=== PATIENT | female | born 1945 | race Caucasian/White ===

== ENCOUNTER 2019-08-30 14:14 | Inpatient (IN) ==
[2019-08-30 15:34] LABS: Basophils # (auto) 0.06 K/uL (0-0.2); Basophils % (auto) 0.6 %; Eosinophils # (auto) 0.23 K/uL (0-0.5); Eosinophils % (auto) 2.1 %; Hematocrit (blood only) 32.9 % (37-47); Hemoglobin 10.1 g/dL (12.0-16.0); Immature Granulocytes # (auto) 0.06 K/uL (0.00-0.02); Immature Granulocytes % (auto) 0.6 %; Lymphocytes # (auto) 3.04 K/uL (1.2-3.4); Lymphocytes % (auto) 28.1 %; Mean Corpuscular Hemoglobin 27.4 pg (25-34); Mean Corpuscular Hgb Conc 30.7 g/dL (32-36); Mean Corpuscular Volume 89.2 fL (80-100); Mean Platelet Volume 9.5 fL (7.4-10.4); Monocytes % (auto) 11.1 %; Neutrophils # (auto) 6.24 K/uL (1.4-6.5); Neutrophils % (auto) 57.5 %; Platelet Count 603 K/uL (130-400); RDW Coefficient of Variation 15.4 % (11.5-14.5); RDW Standard Deviation 49.7 fL (36.4-46.3); Red Blood Count 3.69 M/uL (4.2-5.4); White Blood Count 10.83 K/uL (4.8-10.8)
[2019-08-30 16:03] LABS: Alanine Aminotransferase 34 U/L (12-78); Albumin Globulin Ratio 0.6 (0.9-2); Alkaline Phosphatase 131 U/L (45-117); Aspartate Aminotransferase 48 U/L (15-37); BUN Creatinine Ratio 16.4 (10-20); Bilirubin,Total 0.4 mg/dl (0.2-1); Blood Urea Nitrogen 42 mg/dl (7-18); Calcium 9.2 mg/dl (8.5-10.1); Carbon Dioxide 27 mmol/L (21-32); Chloride 115 mmol/L (98-107); Est GFR (African American) 20.2; Est GFR (Non-African American) 17.4; Glucose 105 mg/dl (70-99); Lipase 477 U/L (73-393); Potassium 4.4 mmol/L (3.5-5.1); Sodium 146 mmol/L (136-145)
--- NOTE | 2019-08-30 16:12 | CT Scan Report ---
CT OF THE ABDOMEN AND PELVIS WITHOUT CONTRAST CLINICAL HISTORY: vomiting, 1 mo s/p partial colectomy COMPARISON STUDY: No previous studies for comparison. TECHNIQUE: Axial images of the abdomen and pelvis were obtained without IV contrast. Images were revi ewed in the axial, sagittal, and coronal planes. Automated exposure control was utilized for the marisabel dy. A dose lowering technique was utilized adhering to the principles of ALARA. No intravenous contr ast was administered due to IV dye allergy. FINDINGS: Lung bases are unremarkable. Gallbladder is slightly distended. Locules gallbladder are not ed however there is also pneumobilia which is likely related. Note is made of a 2.4 x 1.6 cm subcapsu lar segment 8 hypodensity with mild capsular retraction. Adjacent calcifications noted. In p art, this could reflect ductal dilatation. Evaluation is suboptimal on this unenhanced examination. U nenhanced images of the spleen, adrenal glands, right kidney and pancreas are normal. There is marked left renal atrophy. No abscess is present. Mild left abdominal infiltration is noted within the omen ede. The appendix is normal. There is no lymphadenopathy or ascites. Mild sigmoid diverticulosis is n oted without evidence for acute diverticulitis. There are no suspicious osseous lesions. IMPRESSION: 1. No abscess. No bowel obstruction. Mild left abdominal infiltration which is likely postsurgical. 2. Pneumobilia. A few locules of gas within the gallbladder which is likely related. Minimal gallblad francisco j distention without pericholecystic infiltration. 3. 2.4 x 1.6 cm subcapsular segment 8 hypodensity. In part, this could reflect ductal dilatation. Thi s is suboptimally assessed on this unenhanced exam and comparison with prior imaging studies, if avai lable, is recommended. If no priors, a nonemergent MRI of the liver is recommended. 4. Marked left renal atrophy. No hydronephrosis. Electronically signed by: Mekhi Alarcon M.D. 08/30/2019 4:09 PM
[2019-08-30] MEDS ORDERED: SODIUM CHLORIDE 0.9% 1000ML 1,000 ML IV STA (16:36)
[2019-08-30] MEDS ORDERED: ONDANSETRON INJ 2 MG/ML 2 ML VIAL IV STA (16:36)
[2019-08-30 17:20] LABS: Appearance Urine Clear (Clear); Bilirubin Urine Negative (Negative); Blood Urine Negative (Negative); Color Urine Yellow; Glucose Urine UA Negative (Negative); Ketones Urine Negative (Negative); Leukocyte Esterase Urine 2+ (Negative); Nitrite Urine Negative (Negative); Protein Urine Trace (Negative); Specific Gravity Urine >= 1.030 (1.000-1.030); Urobilinogen Urine Negative (Negative); pH Urine 5.5 (4.5-7.5)
[2019-08-30 17:40] LABS: Epithelial Cell Urine >30 /lpf (0-5); RBC Urine 0-4 /hpf (0-4); WBC Urine >30 /hpf (0-5)
[2019-08-30 17:41] LABS: Bacteria Urine Negative (Negative)
--- NOTE | 2019-08-30 17:43 | Ultrasound Report ---
US gallbladder CLINICAL HISTORY: vomiting, distended GB on CT COMPARISON STUDY: CT of the abdomen and pelvis August 30, 2019 at 3:50 PM. FINDINGS: Pneumobilia is noted, as shown on CT. Note is made of a 1.5 cm cystic focus with peripheral calcifications, likely correspond to the finding on CT performed earlier today. Note is made of a 1. 9 cm echogenic nonshadowing structure within the gallbladder which may reflect a stone or sludge ball . There is no gallbladder wall thickening. No sonographic Sierra sign was elicited. No pericholecysti c fluid is noted. There is no biliary ductal dilatation. No right hydronephrosis is present. Pancreat ic body is normal. Head and tail are partially obscured. IMPRESSION: 1. Stone versus sludge ball within the gallbladder. Mild gallbladder distention. No sonographic Jose Alejandro y sign. No evidence for acute cholecystitis by sonography. 2. Pneumobilia. No biliary dilatation. Electronically signed by: Mekhi Alarcon M.D. 08/30/2019 5:42 PM
--- NOTE | 2019-08-30 17:49 | Emergency Department Note ---
Entered by Edmar Ahmadi acting as a scribe for Addy Woods MD ED Provider Note CHIEF COMPLAINT: Nausea and vomiting HISTORY OF PRESENT ILLNESS: The patient is a 73 year old female who presents to the Emergency Room with complaints of constant nausea and vomiting that has been ongoing for the past 2 weeks. The patient endorses some diarrhea (3x per day) as well but denies any overt abdominal pain. The patient states that due to her symptoms she has barely been eating. She adds that she also has been very lightheaded and weak lately. The patient mentioned that she had a partial colon resection done at [facility] on 08/05. She had the procedure done to treat colon cancer. The patient adds that since the onset of her symptoms, the patient has been back to [facility] 8 days ago and was admitted. Pt denies LOC, headache, fevers, chills, diaphoresis, visual changes, neck pain, chest pain, breathing difficulties, back pain, melena, hematochezia, urinary symptoms, numbness, lymphadenopathy, rash, or other complaints. REVIEW OF SYSTEMS: See HPI for pertinent positives and negatives. A total of ten systems were reviewed and were otherwise negative. PMHx/PSHx: CKD stage 4, HTN, Heart murmur, Lupus SOCIAL HISTORY: Patient lives at home. Single PHYSICAL EXAM: GENERAL: Awake, alert, uncomfortable-appearing, in no distress HENT: Normocephalic, atraumatic. Oropharynx unremarkable. Dry mucous membranes. EYES: Normal conjunctiva. Sclera non-icteric. NECK: Inspection normal. Non-tender. Supple. No nuchal rigidity. FROM. No masses. RESPIRATORY: Clear to auscultation. No wheezes. No rales. Normal respiratory effort. CARDIAC: Normal rate. Normal rhythm. No murmurs. No rubs. Extremities warm and well perfused. Pulses equal. No JVD. GI: Soft, non-distended. Tenderness to the right lower quadrant. No rebound or guarding. No masses. Mid abdominal incision that is C/D/I. RECTAL: Deferred. MUSCULOSKELETAL: Atraumatic. Chest examination reveals no tenderness. The back is symmetrical on inspection without obvious abnormality. There is no CVA tenderness to palpation. No joint edema. LOWER EXTREMITIES: Calves are equal size bilaterally and non-tender. No edema. No discoloration. NEURO: Normal sensorium. No sensory or motor deficits noted. SKIN: No rash or jaundice noted. EMERGENCY DEPARTMENT COURSE: 1452: Past medical records reviewed. The patient was evaluated in room B08, and a complete history and physical examination were performed. 1640: I reevaluated the patient and updated her on results. We also discussed the treatment plan and she is agreeable. 1653: I discussed the patient's case with Tika JOLLEY who is working under Dr. Kevin Burnett. They agreed to accept the patient for further evaluation. MEDICAL DECISION MAKING: B8 Prior records/ancillary studies reviewed. Patient's baseline creatinine is 1.9-2.1. Labs in discharge summary reviewed from the [facility] Triage Nursing notes reviewed and agree them. The patient's history was concerning for abdominal pain. Differential diagnosis: Etiologies such as appendicitis, diverticulitis, PUD, biliary pathology, UTI, pancreatitis, obstruction, mesenteric ischemia, aortic pathology, infections, inflammatory bowel disease, renal colic, as well as others were entertained. Physical examination findings: As above. ER treatment provided: Normal saline hydration IV Zofran On reassessment the patient felt better. Diagnostics interpreted by me: ECG: Acute ischemia. The labs revealed mild dehydration and an elevated creatinine above baseline on chemistry panel. Slight leukocytosis on CBC. Imaging studies: CT scan of the abdomen pelvis was performed. There is gallbladder distention without overt signs of cholecystitis. There is pneumobilia present as well. No sign of perforation or obstruction with the bowel. No intra-abdominal infection noted. Ultrasound imaging pending. The patient is generally having a tough time recovering from her surgery. She has been dealing with vomiting and diarrhea. She was unable to provide a stool sample in the ER. She is generally weak. Her creatinine bumped from 2 to almost 2.6. I discussed further management in the hospital and the patient and her friend were very much in agreement. Consultation: A consultation was placed with the Belinda burnett. The case was discussed and diagnostics were reviewed. The patient was evaluated in the ER for further treatment. IMPRESSION: Vomiting RLQ abdominal pain Dehydration Generalized weakness PLAN: Being evaluated by the hospitalist The scribe's documentation has been prepared under my direction and personally reviewed by me in its entirety. I confirm that the note above accurately reflects all work, treatment, procedures, and medical decision making performed by me. Impression & Plan Vomiting, Abdominal pain, RLQ, Dehydration, Generalized weakness Past Med/Surg History Medical History Cancer MULTIPLE SKIN CANCER REMOVALS (RADIATION FOR SKIN CANCER/UPPER LIP) Carolis disease Chronic kidney disease STAGE 3 "ONLY HAS 1 FUNCTIONING KIDNEY" Endometriosis GERD (gastroesophageal reflux disease) Hyperlipidemia Hypertension Lupus Migraine Osteoarthritis Stroke 2 YEARS AGO (REASON FOR TAKING PLAVIX/NO CURRENT PROBLEMS) Surgical History History of colonoscopy History of esophagogastroduodenoscopy (EGD) History of tonsillectomy History of tooth extraction History of total abdominal hysterectomy and bilateral salpingo-oophorectomy Family History Father Family hx colonic polyps Social History Preferred Language: Albanian Communication Ability: Effective Rate Engineer Required: No Beliefs That Will Affect Care: None Current Living Situation: Alone Feels Safe at Home: Yes Smoking Status: Never smoker Second Hand Exposure: No ; Hx Alcohol Use: No Hx Substance Use: No Results & Data Vital Signs Vital Signs - 24 hr 08/30/19 14:18 08/30/19 15:20 08/30/19 17:02 Temperature 36.6 C Temperature Source Oral Pulse Rate 62 Pulse Rate [Finger] 68 Respiratory Rate 16 20 Respiratory Effort / Characteristics Non-Labored Spontaneous Respiratory Depth Normal Blood Pressure 168/75 H Blood Pressure [Left Arm] 188/72 H Blood Pressure Mean 106 Blood Pressure Mean [Left Arm] 110 Blood Pressure Position Sitting Blood Pressure Position [Left Arm] Pulse Oximetry 97 97 99 Oxygen Delivery Method Room Air Room Air Room Air Sepsis Recent Fever Within 48 Hours No Sepsis New/Unexplained Change in Mental Status No Sepsis Action Taken by Nursing No Action Required 08/30/19 17:44 Temperature Temperature Source Pulse Rate Pulse Rate [Finger] 65 Respiratory Rate 18 Respiratory Effort / Characteristics Non-Labored Spontaneous Respiratory Depth Blood Pressure Blood Pressure [Left Arm] 187/66 H Blood Pressure Mean Blood Pressure Mean [Left Arm] 106 Blood Pressure Position Blood Pressure Position [Left Arm] Lying Pulse Oximetry 95 Oxygen Delivery Method Room Air Sepsis Recent Fever Within 48 Hours Sepsis New/Unexplained Change in Mental Status Sepsis Action Taken by [facility] Medications Current Medication List: was personally reviewed by me Laboratory Data Attestation: I reviewed the patient's lab results. Result diagrams: 08/30/19 14:38 08/30/19 14:38 Lab Results 08/30/19 08/30/19 08/30/19 Range/Units 14:38 14:38 17:00 WBC 10.83 H (4.8-10.8) K/uL RBC 3.69 L (4.2-5.4) M/uL Hgb 10.1 L (12.0-16.0) g/dL Hct 32.9 L (37-47) % MCV 89.2 (80-100) fL MCH 27.4 (25-34) pg MCHC 30.7 L (32-36) g/dL RDW Std Deviation 49.7 H (36.4-46.3) fL RDW Coeff of Aurelia 15.4 H (11.5-14.5) % Plt Count 603 H (130-400) K/uL MPV 9.5 (7.4-10.4) fL Immature Gran % (Auto) 0.6 % Neut % (Auto) 57.5 % Lymph % (Auto) 28.1 % [place] % (Auto) 11.1 % Eos % (Auto) 2.1 % Baso % (Auto) 0.6 % Immature Gran # (Auto) 0.06 H (0.00-0.02) K/uL Neut # (Auto) 6.24 (1.4-6.5) K/uL Lymph # (Auto) 3.04 (1.2-3.4) K/uL [place] # (Auto) 1.20 H (0.11-0.59) K/uL Eos # (Auto) 0.23 (0-0.5) K/uL Baso # (Auto) 0.06 (0-0.2) K/uL Sodium 146 H (136-145) mmol/L Potassium 4.4 (3.5-5.1) mmol/L Chloride 115 H (98-107) mmol/L Carbon Dioxide 27 (21-32) mmol/L Anion Gap 4.0 (3-11) BUN 42 H (7-18) mg/dl Creatinine 2.59 H (0.6-1.2) mg/dl Est Cr Clr Drug Dosing Not Reportable Est GFR ( Amer) 20.2 Est GFR (Non-Af Amer) 17.4 BUN/Creatinine Ratio 16.4 (10-20) Glucose 105 H (70-99) mg/dl Calcium 9.2 (8.5-10.1) mg/dl Total Bilirubin 0.4 (0.2-1) mg/dl AST 48 H (15-37) U/L ALT 34 (12-78) U/L Alkaline Phosphatase 131 H (45-117) U/L Total Protein 8.0 (6.4-8.2) gm/dl Albumin 3.0 L (3.4-5.0) gm/dl Globulin 5.0 H (2.5-4.0) gm/dl Albumin/Globulin Ratio 0.6 L (0.9-2) Lipase 477 H (73-393) U/L Specimen Hemolysis Urine Color Yellow Urine Appearance Clear (Clear) Urine pH 5.5 (4.5-7.5) Ur Specific [place] >= 1.030 (1.000-1.030) Urine Protein Trace H (Negative) Urine Glucose (UA) Negative (Negative) Urine Ketones Negative (Negative) Urine Blood Negative (Negative) Urine Nitrite Negative (Negative) Urine Bilirubin Negative (Negative) Urine Urobilinogen Negative (Negative) Ur Leukocyte Esterase 2+ H (Negative) Urine RBC 0-4 (0-4) /hpf Urine WBC >30 H (0-5) /hpf Ur Epithelial Cells >30 H (0-5) /lpf Urine Bacteria Negative (Negative) Hyaline Casts 10-30 H (0-5) /lpf Urine Yeast Budding w/ Hyphae A (None Prsent) Administered Medications Sodium Chloride (Nss 1000ml) 1,000 mls @ 125 mls/hr IV .Q8H STA Stop: 08/31/19 00:35 Last Admin: 08/30/19 17:01 Dose: 125 mls/hr Documented by: [id number] Discontinued Medications Ondansetron HCl (Zofran) 4 mg IV NOW STA Stop: 08/30/19 16:37 Last Admin: 08/30/19 17:01 Dose: 4 mg Documented by: [id number] Imaging Data Radiologist's Impression: Radiology results as stated below per my review and the radiologist's interpretation: CT OF THE ABDOMEN AND PELVIS WITHOUT CONTRAST CLINICAL HISTORY: vomiting, 1 mo s/p partial colectomy COMPARISON STUDY: No previous studies for comparison. TECHNIQUE: Axial images of the abdomen and pelvis were obtained without IV contrast. Images were reviewed in the axial, sagittal, and coronal planes. Automated exposure control was utilized for the study. A dose lowering tech nique was utilized adhering to the principles of ALARA. No intravenous contrast was administered due to IV dye allergy. FINDINGS: Lung bases are unremarkable. Gallbladder is slightly distended. Locul es gallbladder are noted however there is also pneumobilia which is likely related. Note is made of a 2.4 x 1.6 cm subcapsular segment 8 hypodensity with mild capsular retraction. Adjacent calcifications noted. In part, this could reflect ductal dilatation. Evaluation is suboptimal on this unenhanced examination. Unenhanced images of the spleen, adrenal glands, right kidney and pancreas are normal. There is marked left renal atrophy. No abscess is present. Mild left abdominal infiltration is noted within the omentum. The appendix is normal. There is no lymphadenopathy or ascites. Mild sigmoid diverticulosis is noted without evidence for acute diverticulitis. There are no suspicious osseous lesions. IMPRESSION: 1. No abscess. No bowel obstruction. Mild left abdominal infiltration which is likely postsurgical. 2. Pneumobilia. A few locules of gas within the gallbladder which is likely related. Minimal gallbladder distention without pericholecystic infiltration. 3. 2.4 x 1.6 cm subcapsular segment 8 hypodensity. In part, this could reflect ductal dilatation. This is suboptimally assessed on this unenhanced exam and comparison with prior imaging studies, if available, is recommended. If no priors, a nonemergent MRI of the liver is recommended. 4. Marked left renal atrophy. No hydronephrosis. Electronically signed by: Mekhi Alarcon M.D. 08/30/2019 4:09 PM ECG Data Attestation: I personally reviewed and interpreted this ECG as follows: Indication: + vomiting Rate (beats per minute): 62 Rhythm: normal sinus ECG Intervals/blocks: + Normal QRS ECG [place]: + Normal ECG ST segments: no ST depression and no ST elevation ECG Findings: + LVH Blood Pressure Blood Pressure Findings: Elevated blood pressure Blood Pressure Disposition: further management by hospitalist Discharge Plan Visit Data Chief Complaint: Vomiting Stated Complaint: CANT EAT - VOMITING - HIGH BP - TOO WEAK TO STAND ED Provider: Addy Woods Discharge Problem: Vomiting, Abdominal pain, RLQ, Dehydration, Generalized weakness Patient Disposition: Being Evaluated by Hospitalist Forms Stand Alone Forms: [facility] Prescriptions Prescriptions: No Action hydralazine 25 mg Tablet 50 mg PO TID RF: 0 amlodipine 10 mg Tablet 10 mg PO DAILY RF: 0 metoprolol tartrate [Lopressor] 100 mg tablet 100 mg PO BID RF: 0 tramadol 50 mg Tablet 50 mg PO Q6H PRN (Reason: Pain) RF: 0 alprazolam 0.5 mg tablet 0.25 mg PO BID PRN (Reason: Anxiety) RF: 0 alprazolam 0.5 mg Tablet 0.25 mg PO HS PRN (Reason: Anxiety) RF: 0 sertraline 50 mg Tablet 50 mg PO DAILY RF: 0 cyanocobalamin (vitamin B-12) 1,000 mcg Tablet 1,000 mcg PO QAM RF: 0 clopidogrel 75 mg Tablet 75 mg PO QAM RF: 0 aspirin 81 mg Tablet,Delayed Release (Dr/Ec) 81 mg PO HS RF: 0 amitriptyline 50 mg Tablet 25 mg PO HS RF: 0 metoprolol tartrate 50 mg Tablet 50 mg PO BID RF: 0 ranitidine HCl 150 mg Capsule 150 mg PO HS RF: 0 losartan 100 mg Tablet 100 mg PO QAM RF: 0 Referrals Referrals: Tai Beasley [Primary Care Provider] - Discharge Problem: Vomiting Qualifiers: Vomiting type: unspecified Vomiting Intractability: non-intractable Nausea presence: with nausea Qualified Code(s): R11.2 - Nausea with vomiting, unspecified The scribe's documentation has been prepared under my direction and personally reviewed by me in its entirety. I confirm that the note above accurately reflects all work, treatment, procedures, and medical decision making performed by me.
--- NOTE | 2019-08-30 18:28 | History & Physical Report ---
Date of Service August 30, 2019 Assessment & Plan (1) Nausea and vomiting: (2) Abnormal abdominal CT scan: This is a 73yo F with a PMH of recent colon cancer diagnosis s/p resection [facility] on Aug 05, lupus, CKD IV, Caroli's disease with GI stones, mood disorder and history of CVA in 2017 without deficits who presents to ED with ongoing nausea and decreased appetite since colon surgery. -Poor appetite, N/V for 3.5 weeks since partial colon resection. Also with hi story of Caroli's disease with 03/05 limited abd u/s showing stable cyst of right liver and gallbladder sludge -Afebrile, mild leukocytosis of 10.83, Na of 146, Cl of 116, Cr of 2.59 -CT abd/pelvis without evidence of abscess or bowel obstruction. Pneumobilia present with a few locules of gas within the gallbladder. 2.4 x 1.6 cm subcapsular segment 8 hypodensity -GB ultrasound with stone versus sludge ball within the gallbladder. Mild gallbladder distention. No sonographic Sierra sign. No evidence for acute cholecystitis by sonography. Pneumobilia. No biliary dilatation -Routine consults placed for GI and general surgery -Covering with zosyn empirically for possible cholangitis -Blood cultures, ESR and CRP pending -Continue IV fluids, antiemetics, NPO with ice chips/sips (3) Acute kidney injury superimposed on CKD: Cr elevated at 2.59 (baseline ~1.9-2) in setting of poor PO intake, recent Cipro abx -Follows with Dr. Crawford for CKD IV 2/2 HTN and h/o atrophic L kidney -Holding losartan. Routine consult placed (4) Hypertension: Has been elevated since partial colon resection last month -Amlodipine and hydralazine started during recent hospital admission at [facility]. Lopressor increased, nifedipine discontinued -Given missed dose of hydralazine. Continue amlodipine and Lopressor. Losartan held in setting of acute kidney injury (5) Lupus: Stable. Follows with Dr. Jackson (6) Mood disorder: Continue SSRI, alprazolam PRN and HS (7) History of CVA (cerebrovascular accident): 2017, no residual deficits -Continue aspirin, plavix DVT Ppx: SQ heparin Code status: FULL PCP: Ramos ([place]) Dispo: Admitted to [facility]. Plan to return home once medically stable. Patient seen in collaboration with Dr. Whitehead. Please see addendum. History of Present Illness Chief Complaint: Nausea, decreased appetite Primary Care Provider: Tai Beasley This is a 73yo F with a PMH of recent colon cancer diagnosis s/p resection [facility] on Aug 05, lupus, CKD IV, Caroli's disease with GI stones, mood disorder and history of CVA in 2017 without deficits who presents to ED with ongoing nausea and decreased appetite since colon surgery. Patient states that following colon resection, all food "tastes like salt" and patient has also had decreased fluid intake. Has had ongoing nausea with intermittent bouts of emesis. Followed up with PCP the first week of August and was sent to [facility] for IV fluids and blood pressure management and ended up being admitted for 5 days. Was started on amlodipine and hydralazine for better BP control (nifedipine was discontinued) and also received Cipro and Flagyl for UTI. Since discharge home on 08/28, patient has continued to have poor appetite, nausea and 2 episodes of bilious vomit. Denies any fever, chills, hematemesis, abdominal pain or constipation. Has been having regular runny brown stools since colon resection they are becoming more formed. Also has some lightheadedness with movement and position changes as well as dull frontal headache. Denies any visual changes, cough, shortness of breath or wheezing. Follows with Dr. Brown and Jacinta MONTOYA of GI service for Caroli's disease with most recent imaging performed in February 2019 with limited abdominal ultrasound showing stable cyst of right liver and gallbladder sludge. Allergies Allergy/AdvReac Type Severity Reaction Status Date / Time Iodinated Contrast Media Allergy Severe HIVES/DIFFICULTY Verified 08/30/19 16:38 SWALLOWING Home Medications Home Medications Medication Instructions Recorded Confirmed Type aspirin 81 mg PO HS 08/19/18 08/30/19 History clopidogrel 75 mg PO QAM 08/19/18 08/30/19 History cyanocobalamin (vitamin B-12) 1,000 mcg PO QAM 08/19/18 08/30/19 History losartan 100 mg PO QAM 08/19/18 08/30/19 History ranitidine HCl 150 mg PO BID 08/19/18 08/30/19 History alprazolam 0.25 mg PO BID PRN 08/30/19 08/30/19 History alprazolam 0.5 mg PO HS 08/30/19 08/30/19 History amlodipine 10 mg PO DAILY 08/30/19 08/30/19 History hydralazine 50 mg PO TID 08/30/19 08/30/19 History metoprolol tartrate [Lopressor] 100 mg PO BID 08/30/19 08/30/19 History sertraline 50 mg PO DAILY 08/30/19 08/30/19 History tramadol 50 mg PO Q6H PRN 08/30/19 08/30/19 History Past Med/Surg History Medical History (Updated 08/30/19 @ 18:55 by Tika Sterling PA-C) Atrophy of left kidney Cancer MULTIPLE SKIN CANCER REMOVALS (RADIATION FOR SKIN CANCER/UPPER LIP) Carolis disease (Chronic) CKD (chronic kidney disease), stage IV (Chronic) Endometriosis GERD (gastroesophageal reflux disease) (Chronic) History of CVA (cerebrovascular accident) (Chronic) 2016, no residual deficits Hyperlipidemia Hypertension (Chronic) Lupus (Chronic) Migraine Mood disorder Osteoarthritis Surgical History (Updated 08/30/19 @ 18:44 by Tika Sterling PA-C) History of colon resection (Chronic) Aug 05 2019 at [facility] History of colonoscopy History of esophagogastroduodenoscopy (EGD) History of tonsillectomy History of tooth extraction History of total abdominal hysterectomy and bilateral salpingo-oophorectomy Family History Father Family hx colonic polyps Sister Cholangiocarcinoma Other Alzheimer disease Heart disease Hypertension Social History Preferred Language: Icelandic Communication Ability: Effective 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 Physical Exam Physical Exam: General Appearance: WD/WN, vitals as above, NAD, lying in bed, pleasant, conversing easily Head: normocephalic, atraumatic Eyes: normal inspection, PERRL, conjunctivae normal, anicteric sclerae ENT: external ear and nose normal, oropharynx normal Neck: trachea midline, no thyromegaly normal visual inspection Respiratory: normal respiratory effort, lungs clear to auscultation, no wheeze, rales, rhonchi. Normal insp/exp effort, no accessory muscle use Cardiovascular: regular rate, rhythm, systolic murmur, normal peripheral pulses. Vessels: no JVD or carotid bruit Chest: normal inspection of chest Abdomen/GI: active bowel sounds, soft, nontender, no hepatosplenomegaly. + Healing abdominal incision, no erythema or drainage Extremities/Musculoskelatal: no cyanosis or clubbing, extremities motor strength 5/5 Neurologic: PERRL, EOMI, accommodation nl, no face palsy, no dysarthria, CN's II-XI intact bilaterally and moves all extremities Psychiatric: A+Ox3, euthymic affect Skin: no rashes, normal color, warm/dry Results & Data Vital Signs (Past 12 Hours) Vital Signs Temp Pulse Pulse Resp BP BP Pulse Ox 08/30/19 17:44 65 18 187/66 H 95 08/30/19 17:02 68 20 188/72 H 99 08/30/19 15:20 97 08/30/19 14:18 36.6 C 62 16 168/75 H 97 Laboratory Results Short CBC 08/30/19 Range/Units 14:38 WBC 10.83 H (4.8-10.8) K/uL Hgb 10.1 L (12.0-16.0) g/dL Hct 32.9 L (37-47) % Plt Count 603 H (130-400) K/uL BMP 08/30/19 14:38 Sodium 146 H Potassium 4.4 Chloride 115 H Carbon Dioxide 27 BUN 42 H Creatinine 2.59 H Glucose 105 H Calcium 9.2 Liver Function 08/30/19 Range/Units 14:38 Total Bilirubin 0.4 (0.2-1) mg/dl AST 48 H (15-37) U/L ALT 34 (12-78) U/L Alkaline Phosphatase 131 H (45-117) U/L Albumin 3.0 L (3.4-5.0) gm/dl Urine 08/30/19 Range/Units 17:00 Urine Color Yellow Urine Appearance Clear (Clear) Urine pH 5.5 (4.5-7.5) Ur Specific [place] >= 1.030 (1.000-1.030) Urine Protein Trace H (Negative) Urine Glucose (UA) Negative (Negative) Diagnostic Findings CT abd/pelvis: IMPRESSION: 1. No abscess. No bowel obstruction. Mild left abdominal infiltration which is likely postsurgical. 2. Pneumobilia. A few locules of gas within the gallbladder which is likely related. Minimal gallbladder distention without pericholecystic infiltration. 3. 2.4 x 1.6 cm subcapsular segment 8 hypodensity. In part, this could reflect ductal dilatation. This is suboptimally assessed on this unenhanced exam and comparison with prior imaging studies, if available, is recommended. If no priors, a nonemergent MRI of the liver is recommended. 4. Marked left renal atrophy. No hydronephrosis. Gallbladder u/s: IMPRESSION: 1. Stone versus sludge ball within the gallbladder. Mild gallbladder distention. No sonographic Sierra sign. No evidence for acute cholecystitis by sonography. 2. Pneumobilia. No biliary dilatation. Code Status & VTE Plan VTE Prophylaxis Plan VTE Prophylaxis will be ordered: Yes Supervising Physician Co-Signing Physician Notes HISTORY: Record reviewed. Patient interviewed and examined. Care coordinated with Tika Sterling PA-C. Please refer to her documentation for complete history. Briefly, 73 YO female with history of colon Ca with recent resection, Caroli's disease, CKD IV, and other problems. Presented to ED with anorexia, nausea, vomiting, RUQ abdominal pain. EXAM: General- no distress Lungs- clear to auscultation; no respiratory distress Cardiovascular- RRR; no gallop; no JVD; no pretibial edema Abdomen- well-healed midline incision without erythema or drainage; + BS, soft, nondistended; mild RUQ tenderness Extremities- no cyanosis; no calf tenderness Neuro- alert, oriented Skin- warm & dry DATA: Hemoglobin 10.1, white count 10,830, platelet count 603,000. Sodium 146, potassium 4.4, chloride 115, CO2 27, BUN 42, creatinine 2.59, random glucose 105. Total bilirubin 0.4, AST 48, ALT 34, alkaline phosphatase 131, lipase 477. CT of abdomen & pelvis per Radiology: IMPRESSION: 1. No abscess. No bowel obstruction. Mild left abdominal infiltration which is likely postsurgical. 2. Pneumobilia. A few locules of gas within the gallbladder which is likely related. Minimal gallbladder distention without pericholecystic infiltration. 3. 2.4 x 1.6 cm subcapsular segment 8 hypodensity. In part, this could reflect ductal dilatation. This is suboptimally assessed on this unenhanced exam and comparison with prior imaging studies, if available, is recommended. If no priors, a nonemergent MRI of the liver is recommended. 4. Marked left renal atrophy. No hydronephrosis. Electronically signed by: Mekhi Alarcon M.D. US RUQ per Radiology: IMPRESSION: 1. Stone versus sludge ball within the gallbladder. Mild gallbladder distention. No sonographic Sierra sign. No evidence for acute cholecystitis by sonography. 2. Pneumobilia. No biliary dilatation. Electronically signed by: Mekhi Alarcon M.D. EKG performed at 1505 reviewed and demonstrated normal sinus rhythm at 60/ minute, no acute changes. ASSESSMENT AND PLAN: Anorexia, nausea, and vomiting a few weeks after colon resection for colon cancer. History of Caroli's disease followed by [facility]. No bowel obstruction or perforated viscus, but possible biliary tract disease as noted on CT and US. Bowel rest, IV fluids, IV antibiotics. Consult GI and General Surgery. CKD IV with EDYTA. Elevated blood pressures. Consult Nephrology. Please refer to BEATRICE Sterling's documentation for discussion of other issues.
[2019-08-30] MEDS ORDERED: HydrALAZINE TAB 50 MG TAB PO ONE (18:45)
[2019-08-30] MEDS ORDERED: TRAMADOL HCL 50 MG TABLET PO PRN (19:58)
[2019-08-30] MEDS ORDERED: ALPRAZolam 0.25 MG TABLET PO PRN (19:58)
[2019-08-30] MEDS ORDERED: PIPERACILL/TAZOBAC CONSULT ACTIVE PRN (20:22)
[2019-08-30] MEDS: SODIUM CHLORIDE 0.9% 1000ML 1,000 ML IV SCH (20:51)
[2019-08-30] MEDS: HydrALAZINE TAB 50 MG TAB PO SCH (20:53)
[2019-08-30] MEDS: ASPIRIN 81 MG ECTAB PO SCH (20:54)
[2019-08-30] MEDS: METOPROLOL TARTRATE 100 MG TAB PO SCH (20:54)
[2019-08-30] MEDS: FAMOTIDINE 20 MG TAB PO SCH (20:55)
[2019-08-30] MEDS: ALPRAZolam 0.5 MG TABLET PO SCH (20:58)
[2019-08-30] MEDS: PIPERACILLIN/TAZOBACTAM 3.375 GM in DEXTROSE 5% 100 ML IV SCH (21:18)
[2019-08-30] MEDS: HEPARIN SOD 5,000 UNIT/0.5 ML VIAL SQ SCH (21:19)
[2019-08-31] MEDS: SODIUM CHLORIDE 0.9% 1000ML 1,000 ML IV SCH (04:38)
[2019-08-31] MEDS: HEPARIN SOD 5,000 UNIT/0.5 ML VIAL SQ SCH ×3 (05:11→21:00)
[2019-08-31 06:27] LABS: Hemoglobin 9.1 g/dL (12.0-16.0); Mean Corpuscular Hemoglobin 27.2 pg (25-34); Mean Corpuscular Hgb Conc 30.3 g/dL (32-36); Mean Corpuscular Volume 89.8 fL (80-100); Mean Platelet Volume 9.5 fL (7.4-10.4); Platelet Count 548 K/uL (130-400); RDW Coefficient of Variation 15.7 % (11.5-14.5); RDW Standard Deviation 50.9 fL (36.4-46.3); Red Blood Count 3.34 M/uL (4.2-5.4); White Blood Count 9.26 K/uL (4.8-10.8)
[2019-08-31 06:56] LABS: Albumin Level 2.4 gm/dl (3.4-5.0); BUN Creatinine Ratio 17.9 (10-20); Calcium 8.4 mg/dl (8.5-10.1); Creatinine Clr Calc Pharmacy 20.7 ml/min; Est GFR (African American) 23.6; Est GFR (Non-African American) 20.3; Potassium 4.1 mmol/L (3.5-5.1)
[2019-08-31 06:59] LABS: Albumin Globulin Ratio 0.5 (0.9-2); Bilirubin,Total 0.4 mg/dl (0.2-1); Globulin 4.5 gm/dl (2.5-4.0); Total Protein 6.9 gm/dl (6.4-8.2)
[2019-08-31] MEDS: AMLODIPINE BESYLATE 5 MG TAB PO SCH (08:27)
[2019-08-31] MEDS: METOPROLOL TARTRATE 100 MG TAB PO SCH ×2 (08:29→20:36)
[2019-08-31] MEDS: HydrALAZINE TAB 50 MG TAB PO SCH ×3 (08:29→20:36)
[2019-08-31] MEDS: CLOPIDOGREL BISULFATE 75 MG TAB PO SCH (08:45)
[2019-08-31] MEDS: SERTRALINE HCL 50 MG TABLET PO SCH (08:45)
[2019-08-31] MEDS: FAMOTIDINE 20 MG TAB PO SCH ×2 (08:45→20:37)
[2019-08-31] MEDS: CYANOCOBALAMIN 500 MCG TABLET (VITAMIN B-12) PO SCH (08:45)
[2019-08-31] MEDS: PIPERACILLIN/TAZOBACTAM 3.375 GM in DEXTROSE 5% 100 ML IV SCH ×2 (08:46→17:58)
--- NOTE | 2019-08-31 09:44 | Gastrointestinal Consultation ---
Date of Consultation August 31, 2019 Supervising Physician Co-Signing Physician Notes 73 yo fm admitted with nausea/intermittent vomiting, poor po intake , after recent colon resection done at an [facility] approximately 1 month ago (08/05/19- details of which are unknown). She has an underlying reported history of caroli's disease followed by Jacinta Pro in the [facility] that appears to be stable with maybe mild right intrahepatic duct dilation in the past on imaging. Her outpatient imaging prior to this surgery (MRI in 09/03, abd sasha in 03/05) have shown a persistent rhl cyst, gb sludge and no mention of dilated cbd or chd. Given the new finding of pneumobilia on admission imaging here without a prior ercp history raises the differential diagnosis of other causes for this finding such as pudz (i think this has been ruled out with her egd in 10/05), ? choledochoduodenal fistula, or ? related to recent colon surgery. Given her priro history of a hepatic cyst - there is a slim chance this could have ruptured leading to ? pneumobilia as there is no mention of this cyst on admission imaging here. She does not appear to have a gangrenous gallbladder as a source for her pneumobilia though mention of locules in the gallbladder. She has a very benign abdominal exam per my assessment today. At this time, I think a conservative GI approach with IV abx is appropriate, slow advancement of diet if no other procedures are anticipated for her. I think surgical input is appreciated. An attempt to get the surgical records from [place] is underway and should that shed any other light on this finding of pneumobilia will certainly communicate that to the primary team and patient. History of Present Illness Reason for Consultation: nausea, poor appetitie, recent colon resection on 08/05 at [facility] for colon cancer Attending Physician: Addy Whitehead MD History of Present Illness 73 yo fm with a history of reported Caroli's disease followed by Jacinta Pro and Dr. Brown in the [facility] clinic. She had a recent diagnosis of colon cancer leading to a colon cancer resection in [place] - unfortunately path records or surgical records are not present to know the details of this. The surgery was done on 08/05. Since then she has poor appetite and nausea and intermittent vomiting (non bloody), leading to an ER visit and subsequent admission. Further work-up with labs have showed a normal wbc, slight downtrend in hgb from yesterday to today likely dilutation, and high platelet count in addition to jassi superimposed on ckd. Her liver numbers show her tb to be 0.4, AST slightly elevated, ALT essentially normal. Her lipase was elevated on admission. She did have a CT A/P done on admission showing a distended gb with loculues. fup gb sasha showing gb stones versus sludge and pneumobilia. She denies any prior ercp's, no record of prior ercp's in the [facility]. She is reported to have Caroli's disease and on prior outpatient imaging from MRI in 09/03 she did have a hepatic cyst that was raven 17 cm in largest diameter and gb sludge, and fup abd sasha in 03/05 showing the same rhl cyst, gb sludge and normal appearing gb. The pneumboilia finding on imaging appears to new compared to prior outpatient imaging that has been reviewed. Her last egd was done in 10/05 without evidence of peptic ulcer disease. Allergies Allergy/AdvReac Type Severity Reaction Status Date / Time Iodinated Contrast Media Allergy Severe HIVES/DIFFICULTY Verified 08/30/19 16:38 SWALLOWING Home Medications Home Medications Medication Instructions Recorded Confirmed Type aspirin 81 mg PO HS 08/19/18 08/30/19 History clopidogrel 75 mg PO QAM 08/19/18 08/30/19 History cyanocobalamin (vitamin B-12) 1,000 mcg PO QAM 08/19/18 08/30/19 History losartan 100 mg PO QAM 08/19/18 08/30/19 History ranitidine HCl 150 mg PO BID 08/19/18 08/30/19 History alprazolam 0.25 mg PO BID PRN 08/30/19 08/30/19 History alprazolam 0.5 mg PO HS 08/30/19 08/30/19 History amlodipine 10 mg PO DAILY 08/30/19 08/30/19 History hydralazine 50 mg PO TID 08/30/19 08/30/19 History metoprolol tartrate [Lopressor] 100 mg PO BID 08/30/19 08/30/19 History sertraline 50 mg PO DAILY 08/30/19 08/30/19 History tramadol 50 mg PO Q6H PRN 08/30/19 08/30/19 History Patient History Medical History (Updated 08/30/19 @ 18:55 by Tika Sterling PA-C) Atrophy of left kidney Cancer MULTIPLE SKIN CANCER REMOVALS (RADIATION FOR SKIN CANCER/UPPER LIP) Carolis disease (Chronic) CKD (chronic kidney disease), stage IV (Chronic) Endometriosis GERD (gastroesophageal reflux disease) (Chronic) History of CVA (cerebrovascular accident) (Chronic) 2016, no residual deficits Hyperlipidemia Hypertension (Chronic) Lupus (Chronic) Migraine Mood disorder Osteoarthritis Surgical History (Updated 08/30/19 @ 18:44 by Tika Sterling PA-C) History of colon resection (Chronic) Aug 05 2019 at [facility] History of colonoscopy History of esophagogastroduodenoscopy (EGD) History of tonsillectomy History of tooth extraction History of total abdominal hysterectomy and bilateral salpingo-oophorectomy Family History Father Family hx colonic polyps Sister Cholangiocarcinoma Other Alzheimer disease Heart disease Hypertension Social History Preferred Language: Malagasy Communication Ability: Effective 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 Beliefs That Will Affect Care: None Current Living Situation: Alone Feels Safe at Home: Yes Safety Concerns: Feels Safe At This Time Smoking Status: Never smoker Second Hand Exposure: No ; Hx Alcohol Use: No Hx Substance Use: No Review of Systems Review of Systems: All systems reviewed & are unremarkable except as noted in HPI & below Physical Exam Physical Exam: Thin appearing female in no acute distress Constitutional: WD/WN, vitals as above well developed and well nourished; no acute distress Eyes: PERRL, conjunctivae normal, anicteric sclerae Respiratory: normal respiratory effort, lungs clear to auscultation Cardiovascular: RRR, no murmur, no edema Gastrointestinal (Abdomen): normal bowel sounds, soft, nontender, no hepatos plenomegaly Skin: no rashes, warm and dry Neurologic: CN's II-XI intact bilaterally Results & Data Vital Signs (Past 12 Hours) Vital Signs Temp Pulse Pulse Resp BP Pulse Ox 08/31/19 07:40 176/67 H 08/31/19 07:09 36.8 C 63 18 198/67 H 92 08/31/19 07:04 60 08/31/19 03:10 36.7 C 58 L 16 149/66 H 96 08/30/19 23:03 36.6 C 62 18 137/66 94 08/30/19 23:00 66 08/30/19 21:53 66 Labs reviewed:wbc 10.8 to 9.3 Hgb 10.1 to 9.1 Hct 32.9 to 30.0 Plt 603 to 548 Na 146 to 147 Bun 42 to 41 Cr 2.59 to 2.28 TB 0.4 AST 48 to 41 ALT 34 to 29 AP normal Lipase on admission 477 CT A/P reviewed on imaging, gb sasha reviewed as well Last MRI 09/03 reviewed as an outpatient 03/05 Abd sasha reivewed Prior egd reviewed
--- NOTE | 2019-08-31 10:19 | Surgery Consultation ---
Date of Consultation August 31, 2019 Assessment & Plan (1) Nausea and vomiting: At this point I think her nausea and vomiting may be multifactorial. At one point postop she was on Flagyl which could explain the abnormal taste in her mouth. I think dehydration played a role as well as potentially postoperative anesthesia and narcotics. Nonetheless clinically she is currently much better. There is no indication for cholecystectomy or any surgery at this point in time. The pneumobilia is likely secondary to her known Caroli's disease. We will advance her diet and see how she does. Continue IV rehydration gently as well as Zofran as needed. We will continue to follow her. (2) History of colon resection: (3) Carolis disease: History of Present Illness Attending Physician: Addy Whitehead MD History of Present Illness Patient is a 73-year-old female who about 4 weeks ago underwent a partial colectomy for colon cancer. She states that since a couple days after the surgery she has had persistent nausea as well as an abnormal taste in her mouth. She states that for about 2 weeks now she has not been taking much and at all including fluids. She was admitted for nausea and vomiting. She has a rather extensive past medical history including Caroli's disease. Since being given Zofran and IV fluids she feels much better this morning. In fact she has no nausea currently. Allergies Allergy/AdvReac Type Severity Reaction Status Date / Time Iodinated Contrast Media Allergy Severe HIVES/DIFFICULTY Verified 08/30/19 16:38 SWALLOWING Home Medications Home Medications Medication Instructions Recorded Confirmed Type aspirin 81 mg PO HS 08/19/18 08/30/19 History clopidogrel 75 mg PO QAM 08/19/18 08/30/19 History cyanocobalamin (vitamin B-12) 1,000 mcg PO QAM 08/19/18 08/30/19 History losartan 100 mg PO QAM 08/19/18 08/30/19 History ranitidine HCl 150 mg PO BID 08/19/18 08/30/19 History alprazolam 0.25 mg PO BID PRN 08/30/19 08/30/19 History alprazolam 0.5 mg PO HS 08/30/19 08/30/19 History amlodipine 10 mg PO DAILY 08/30/19 08/30/19 History hydralazine 50 mg PO TID 08/30/19 08/30/19 History metoprolol tartrate [Lopressor] 100 mg PO BID 08/30/19 08/30/19 History sertraline 50 mg PO DAILY 08/30/19 08/30/19 History tramadol 50 mg PO Q6H PRN 08/30/19 08/30/19 History Patient History Medical History (Updated 08/30/19 @ 18:55 by Tika Sterling PA-C) Atrophy of left kidney Cancer MULTIPLE SKIN CANCER REMOVALS (RADIATION FOR SKIN CANCER/UPPER LIP) Carolis disease (Chronic) CKD (chronic kidney disease), stage IV (Chronic) Endometriosis GERD (gastroesophageal reflux disease) (Chronic) History of CVA (cerebrovascular accident) (Chronic) 2016, no residual deficits Hyperlipidemia Hypertension (Chronic) Lupus (Chronic) Migraine Mood disorder Osteoarthritis Surgical History (Updated 08/30/19 @ 18:44 by Tika Sterling PA-C) History of colon resection (Chronic) Aug 05 2019 at [facility] History of colonoscopy History of esophagogastroduodenoscopy (EGD) History of tonsillectomy History of tooth extraction History of total abdominal hysterectomy and bilateral salpingo-oophorectomy Family History Father Family hx colonic polyps Sister Cholangiocarcinoma Other Alzheimer disease Heart disease Hypertension Social History Preferred Language: Dutch Communication Ability: Effective 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 Beliefs That Will Affect Care: None Current Living Situation: Alone Feels Safe at Home: Yes Safety Concerns: Feels Safe At This Time Smoking Status: Never smoker Second Hand Exposure: No ; Hx Alcohol Use: No Hx Substance Use: No Review of Systems Review of Systems: All systems reviewed & are unremarkable except as noted in HPI & below Physical Exam Constitutional: WD/WN, vitals as above no acute distress and not ill appearing Eyes: PERRL, conjunctivae normal, anicteric sclerae EOM intact bilaterally ENMT: external ear and nose normal, oropharynx normal Ears: no hearing impairment Neck: trachea midline, no thyromegaly Respiratory: normal respiratory effort; no respiratory distress and does not use accessory muscles Cardiovascular: Rate/Rhythm: regular rate and regular rhythm Gastrointestinal (Abdomen): soft. nt. incision well healed. non-distended. Skin: no rashes, warm and dry Psychiatric: Orientation: alert, oriented x 3 and cooperative Results & Data Vital Signs (Past 12 Hours) Vital Signs Temp Pulse Pulse Resp BP Pulse Ox 08/31/19 07:40 176/67 H 08/31/19 07:09 36.8 C 63 18 198/67 H 92 08/31/19 07:04 60 08/31/19 03:10 36.7 C 58 L 16 149/66 H 96 08/30/19 23:03 36.6 C 62 18 137/66 94 08/30/19 23:00 66 PG Care Time/CCT Total # of Minutes Spent Total Time Spent with Patient: Total time spent is greater than 50% in coordination of care (as documented) at patient's floor/unit and/or counseling patient:
[2019-08-31] MEDS: DEXTROSE 5% 1,000 ML IV SCH ×2 (11:51→23:48)
--- NOTE | 2019-08-31 12:18 | Progress Note ---
DATE: 08/31/2019 REPORT TITLE: Nephrology Consultation. REASON FOR CONSULT: Acute renal failure and background chronic kidney disease IV. HISTORY OF PRESENT ILLNESS: The patient is a. Dictation Ends Here this is error see other dicatation MTDD
--- NOTE | 2019-08-31 12:28 | Consultation Report ---
DATE OF CONSULTATION: 08/31/2019 REPORT TITLE: Nephrology Consultation. HISTORY OF PRESENT ILLNESS: The patient is a 73-year-old female with recent colon cancer diagnosis, status post resection on 08/05/2019, chronic kidney disease stage IV with a baseline creatinine of around 2. Followed by Dr. Jhoana Crawford who presented to the hospital yesterday with ongoing nausea, decreased appetite since the colon surgery. The patient does not feel like any of the food or even water tastes good and she is eating and drinking significantly less. At the time of admission, creatinine was 2.59, which is slightly higher than her baseline of around 1.8-2. She is getting IV fluid and with that renal labs are getting better. She still has nausea and poor appetite. Losartan has been held. PAST MEDICAL AND SURGICAL HISTORY: Atrophic left kidney with CKD stage IV with a baseline creatinine of around 1.8-2.0, Caroli's disease, multiple skin cancers, endometriosis, GERD, history of CVA in 2017, hyperlipidemia, hypertension, history of chronic lupus, migraine, mood disorder, osteoarthritis. PAST SURGICAL HISTORY: Reviewed. Colon resection, colonoscopy, EGD, tonsillectomy, tooth extraction, hysterectomy and bilateral salpingo-oophorectomy. FAMILY HISTORY: Negative for renal disease. SOCIAL HISTORY: No smoking, no alcohol. REVIEW OF SYSTEMS: Other than GI symptoms detailed in HPI, all other systems were reviewed and negative. 12 systems reviewed in total. PHYSICAL EXAMINATION: GENERAL: Elderly white female who does not appear to be in any respiratory distress. She is awake, alert, oriented x3. HEENT: Mucous membrane is moist. NECK: Supple. No jugular venous distention. CHEST: Bilateral decreased breath sounds at the bases but poor inspiratory effort. CARDIOVASCULAR: S1, S2 regular. ABDOMEN: Soft, nontender. EXTREMITIES: Shows no edema. NEUROLOGIC: Awake, alert, oriented x3, moving all 4 extremities. VITAL SIGNS: Most recent blood pressure shows blood pressure of 176/67, pulse rate 63, temperature 36.8, 92% on room air. Mucous membrane is moist. LABORATORY TESTS: Baseline creatinine 1.8-2.0. At the time of admission, she had a creatinine of 2.59, which has improved to 2.28 this morning. Sodium 147, chloride 117, BUN 41, creatinine 2.28, calcium 8.4, AST 41. Hemoglobin 9.1, platelet count 548. ASSESSMENT AND PLAN: A 73-year-old female with recent colon surgery, now presenting with symptoms of nausea, poor appetite for the last few days associated with acute renal failure on background chronic kidney disease IV. Acute renal failure. The acute component is fairly minimal and is getting back to baseline. I expect the creatinine to be baseline by tomorrow. At this time, sodium is getting higher and is up to 147, and blood pressure is also higher. Given this, I would like to change the fluid to plane D5 water to decrease the salt load as well as to provide more free water. Continue daily labs. Continue to monitor input and output. Blood pressure is slightly higher, but hopefully with stopping normal saline, it will trend down. Continue to hold losartan for now. Thank you very much for the consultation. SINGH
--- NOTE | 2019-08-31 18:57 | Hospitalist Progress Note ---
Date of Service August 31, 2019 Assessment & Plan (1) Nausea and vomiting: Anorexia, nausea, and vomiting a few weeks after colon resection for colon cancer. 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 No bowel obstruction or perforated viscus, but possible biliary tract disease as noted on CT and US. Initially managed with bowel rest, IV fluids, IV antibiotics. GI and General Surgery consulted. Abdominal exam benign. Advance diet as tolerated. (2) Acute kidney injury superimposed on CKD: CKD IV with superimposed EDYTA, probably from dehydration. IV fluids. Nephrology consulted. (3) Hypertension: Blood pressures running higher since colon resection a few weeks ago. Nephrology consulted to assist with management. (4) GERD (gastroesophageal reflux disease): Continue H2 danielle. (5) Lupus: Quiescent. (6) DVT prophylaxis: SQ heparin. Ambulate. (7) Discharge planning issues: Anticipated discharge to home. Primary care follow-up with Dr. Beasley. GI follow-up with [facility]. Subjective Recheck for multiple problems. Patient seen in their room around 1030. Feels better. No abdominal pain, nausea, vomiting. Review of Systems: Constitutional- no fever. Cardiac- no chest pain. Pulmonary- no cough or SOB. GI- as noted above. - no urinary symptoms. Otherwise, as noted above. Physical Exam Constitutional: no acute distress Eyes: + anicteric sclerae Respiratory: no respiratory distress Auscultation: lungs clear to auscultation bilaterally Cardiovascular: Rate/Rhythm: regular rate and regular rhythm Heart Sounds: + murmur (II/ systolic murmur at base); no gallop Vessels: no JVD Extremities: no calf tenderness and no edema Gastrointestinal (Abdomen): Inspection/Auscultation: normal bowel sounds; abdomen not distended Percussion/Palpation: abdomen soft; abdomen nontender Skin: no rashes, warm and dry Psychiatric: Orientation: alert and oriented x 3 Results & Data Vital Signs (Past 12 Hours) Vital Signs Temp Pulse Pulse Resp BP Pulse Ox 08/31/19 15:27 36.7 C 62 18 172/63 H 94 08/31/19 15:02 60 08/31/19 13:17 36.6 C 49 L 18 180/74 H 94 08/31/19 07:40 176/67 H 08/31/19 07:09 36.8 C 63 18 198/67 H 92 08/31/19 07:04 60 Laboratory Results Laboratory Results - last 24 hr 08/30/19 08/30/19 08/31/19 20:17 20:17 05:27 WBC 9.26 RBC 3.34 L Hgb 9.1 L Hct 30.0 L MCV 89.8 MCH 27.2 MCHC 30.3 L RDW Std Deviation 50.9 H RDW Coeff of Aurelia 15.7 H Plt Count 548 H MPV 9.5 ESR > 90 H Sodium Potassium Chloride Carbon Dioxide Anion Gap BUN Creatinine Est Cr Clr Drug Dosing Est GFR ( Amer) Est GFR (Non-Af Amer) BUN/Creatinine Ratio Glucose Calcium Total Bilirubin AST ALT Alkaline Phosphatase C-Reactive Protein 2.58 H Total Protein Albumin Globulin Albumin/Globulin Ratio 08/31/19 05:27 WBC RBC Hgb Hct MCV MCH MCHC RDW Std Deviation RDW Coeff of Aurelia Plt Count MPV ESR Sodium 147 H Potassium 4.1 Chloride 117 H Carbon Dioxide 24 Anion Gap 6.0 BUN 41 H Creatinine 2.28 H D Est Cr Clr Drug Dosing 20.7 Est GFR ( Amer) 23.6 Est GFR (Non-Af Amer) 20.3 BUN/Creatinine Ratio 17.9 Glucose 91 Calcium 8.4 L Total Bilirubin 0.4 AST 41 H ALT 29 Alkaline Phosphatase 108 C-Reactive Protein Total Protein 6.9 Albumin 2.4 L Globulin 4.5 H Albumin/Globulin Ratio 0.5 L
[2019-08-31] MEDS: ALPRAZolam 0.5 MG TABLET PO SCH (20:36)
[2019-08-31] MEDS: ASPIRIN 81 MG ECTAB PO SCH (20:36)
[2019-09-01] MEDS: PIPERACILLIN/TAZOBACTAM 3.375 GM in DEXTROSE 5% 100 ML IV SCH ×3 (01:31→16:57)
[2019-09-01] MEDS: HEPARIN SOD 5,000 UNIT/0.5 ML VIAL SQ SCH ×3 (05:38→21:54)
[2019-09-01 06:45] LABS: Hematocrit (blood only) 26.7 % (37-47); Hemoglobin 8.4 g/dL (12.0-16.0); Mean Corpuscular Hemoglobin 27.8 pg (25-34); Mean Corpuscular Hgb Conc 31.5 g/dL (32-36); Mean Corpuscular Volume 88.4 fL (80-100); Mean Platelet Volume 9.2 fL (7.4-10.4); Platelet Count 410 K/uL (130-400); RDW Coefficient of Variation 15.5 % (11.5-14.5); RDW Standard Deviation 50.2 fL (36.4-46.3); Red Blood Count 3.02 M/uL (4.2-5.4); White Blood Count 8.78 K/uL (4.8-10.8)
[2019-09-01 07:32] LABS: Albumin Globulin Ratio 0.5 (0.9-2); Albumin Level 2.2 gm/dl (3.4-5.0); BUN Creatinine Ratio 14.1 (10-20); Bilirubin,Total 0.5 mg/dl (0.2-1); Calcium 7.9 mg/dl (8.5-10.1); Creatinine Clr Calc Pharmacy 25.3 ml/min; Est GFR (African American) 29.9; Est GFR (Non-African American) 25.8; Globulin 4.1 gm/dl (2.5-4.0); Potassium 3.5 mmol/L (3.5-5.1); Total Protein 6.3 gm/dl (6.4-8.2)
[2019-09-01] MEDS: METOPROLOL TARTRATE 100 MG TAB PO SCH ×2 (08:18→20:14)
[2019-09-01] MEDS: SERTRALINE HCL 50 MG TABLET PO SCH (08:18)
[2019-09-01] MEDS: AMLODIPINE BESYLATE 5 MG TAB PO SCH (08:18)
[2019-09-01] MEDS: HydrALAZINE TAB 50 MG TAB PO SCH (08:18)
[2019-09-01] MEDS: CYANOCOBALAMIN 500 MCG TABLET (VITAMIN B-12) PO SCH (08:18)
[2019-09-01] MEDS: CLOPIDOGREL BISULFATE 75 MG TAB PO SCH (08:18)
[2019-09-01] MEDS: FAMOTIDINE 20 MG TAB PO SCH ×2 (08:18→20:15)
--- NOTE | 2019-09-01 08:57 | Surgery Progress Note ---
Date of Service September 01, 2019 Assessment & Plan (1) Poor appetite: (2) Nausea and vomiting: ? etiology. would really like to avoid surgery this soon after colon resection. will add reglan 10 mg Q6 to see if this helps will also order HIDA scan she had egd recently which per her was normal. Subjective pt states she is not doing as well as yesterday. "barely ate" yesterday secondary to nausea. denies pain. Physical Exam Physical Exam: alert. nad abd: soft. nt. nd. Results & Data Vital Signs (Past 12 Hours) Vital Signs Temp Pulse Pulse Resp BP Pulse Ox 09/01/19 07:09 36.8 C 57 L 18 200/68 H 94 09/01/19 04:00 176/67 H 08/31/19 23:22 37 C 61 20 182/67 H 94 08/31/19 23:00 62 PG Care Time/CCT Total # of Minutes Spent Total Time Spent with Patient: Total time spent is greater than 50% in coordination of care (as documented) at patient's floor/unit and/or counseling patient:
--- NOTE | 2019-09-01 09:00 | Nephrology Progress Note ---
Date of Service September 01, 2019 Assessment & Plan (1) Acute kidney injury superimposed on CKD: today back to baseline of 1.8-2.0. back to baseline today. poor po intake ongoing; being watched for possible gall bladder dz at this time; prior ERCP explains pneumobilia. -daily bmp -cont to hold ARB -BP control as below -nsaid and other nephrotoxin avoidance to continue Present on Admission?: Yes (2) Hypertension: on her OP bp regimen w/ exception of losartan, held appropriately. bp uncontrolled at times w/ 160-200 systolic -increased hydralazine to 75 mg tid -added prn hydralazine dose for sbp > 160 >>> 10 mg po q4h -ensure pain/anxiety are controlled Present on Admission?: Yes Subjective poor po since her surgery 08/05; has had a bowl of oatmeal today and little else; full dinner tray at bedside; no sob, occasional BL upper abd pain Review of Systems Review of Systems: All systems reviewed & are unremarkable except as noted in HPI & below Physical Exam Constitutional: well developed and well nourished; no acute distress Eyes: EOM intact bilaterally ENMT: Ears: no external ear abnormality Nose: no external nose abnormality Mouth: + dry oral mucous membranes Neck: no nuchal rigidity Respiratory: normal respiratory effort; no respiratory distress Auscultation: + diminished lung sounds Cardiovascular: Rate/Rhythm: regular rate and regular rhythm (at about 60 bpm) Gastrointestinal (Abdomen): Inspection/Auscultation: normal bowel sounds (o rperhaps slgithly diminished) Percussion/Palpation: abdomen soft; abdomen nontender Musculoskeletal: Extremities: strength 5/5 throughout Skin: no rashes, warm and dry Neurologic: hammond, fluent speech, no tremor Psychiatric: A+Ox3, euthymic affect Genitourinary: n ofoley Results & Data Vital Signs (Past 12 Hours) Vital Signs Temp Pulse Pulse Resp BP Pulse Ox 09/01/19 08:45 58 L 09/01/19 07:09 36.8 C 57 L 18 200/68 H 94 09/01/19 04:00 176/67 H 08/31/19 23:22 37 C 61 20 182/67 H 94 08/31/19 23:00 62 Laboratory Results 09/01/19 06:29 12/16/19 06:29 (1) Hypertension Hypertension type: essential hypertension Qualified Code(s): I10 - Essential (primary) hypertension
[2019-09-01] MEDS: METOCLOPRAMIDE HCL 10 MG TABLET PO SCH ×2 (11:14→18:03)
[2019-09-01] MEDS: DEXTROSE 5% 1,000 ML IV SCH (12:15)
--- NOTE | 2019-09-01 14:23 | Gastroenterology Progress Note ---
Date of Service September 01, 2019 Assessment & Plan (1) Nausea and vomiting: In light of recent normal EGD, nausea vomiting possibly related to gallbladder disease versus postoperative status. Present on Admission?: Yes (2) Pneumobilia: Patient reports prior ERCP which explains pneumobilia. Present on Admission?: Yes Supervising Physician Co-Signing Physician Notes I have personally seen and examined the patient with LINDSAY Moy. Her note reflects my exam and findings. I agree with her impression and plan. I do not believe a repeat EGD will add to her care at this point. Pneumobilia typical for post ERCP patients. Tejas Tapia M.D. Subjective Ms. Davies is a 73 yr old female who underwent colon resection 08/05 at [facility], who has had poor p.o. intake since surgery. She was admitted for nausea, weakness, which is somewhat improved since admission having been able to eat a full liquid diet this morning. Records show recent EGD without significant abnormalities at [facility]. CT with pneumobilia, question bile duct dilation, US with gallbladder sludge. Patient tells that she has had 8 ERCPs in the past, Review of Systems Review of Systems: ROS: Gen: + weakness, + weight loss. No fevers Eyes: No eye redness, or pain, no recent vision changes Resp: No SOB, no cough Cardio: No palpitations/irregular beats, no chest pain GI: + nausea, generalized lower abdomen cramping discomfort, + nausea, Had vomiting prior to admission : Denies pain on urination Skin: No jaundice, itching or new rashes Physical Exam Constitutional: WD/WN, vitals as above + ill appearing Eyes: PERRL, conjunctivae normal, anicteric sclerae Neck: trachea midline, no thyromegaly Respiratory: normal respiratory effort, lungs clear to auscultation Cardiovascular: RRR, no murmur, no edema Gastrointestinal (Abdomen): Inspection/Auscultation: abdomen normal to inspection; abdomen not distended Percussion/Palpation: + abdomen tender (mild upper abdomen tenderness) and abdomen soft; no ascites Results & Data Vital Signs (Past 12 Hours) Vital Signs Temp Pulse Pulse Resp BP BP Pulse Ox 09/01/19 11:31 36.6 C 56 L 18 161/73 H 95 09/01/19 08:45 58 L 09/01/19 07:09 36.8 C 57 L 18 200/68 H 94 09/01/19 04:00 176/[address] 1. No abscess. No bowel obstruction. Mild left abdominal infiltration which is likely postsurgical. 2. Pneumobilia. A few locules of gas within the gallbladder which is likely related. Minimal gallbladder distention without pericholecystic infiltration. 3. 2.4 x 1.6 cm subcapsular segment 8 hypodensity. In part, this could reflect ductal dilatation. This is suboptimally assessed on this unenhanced exam and comparison with prior imaging studies, if available, is recommended. If no priors, a nonemergent MRI of the liver is recommended. 4. Marked left renal atrophy. No hydronephrosis. US 1. Stone versus sludge ball within the gallbladder. Mild gallbladder distention. No sonographic Sierra sign. No evidence for acute cholecystitis by sonography. 2. Pneumobilia. No biliary dilatation.
[2019-09-01] MEDS: ASPIRIN 81 MG ECTAB PO SCH (20:14)
[2019-09-01] MEDS: ALPRAZolam 0.5 MG TABLET PO SCH (20:15)
--- NOTE | 2019-09-01 21:35 | Hospitalist Progress Note ---
Date of Service September 01, 2019 Assessment & Plan (1) Nausea and vomiting: Anorexia, nausea, and vomiting a few weeks after colon resection for colon cancer. 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 No bowel obstruction or perforated viscus, but: CT demonstrated minimal gallbladder distention and pneumobilia US demonstrated stone vs sludge ball in gallbladder, gallbladder distention, pneumobilia. Initially managed with bowel rest, IV fluids, IV antibiotics. GI and General Surgery consulted. Abdominal exam benign. HIDA scan recommended- pending. Advance diet as tolerated. (2) Acute kidney injury superimposed on CKD: CKD IV with superimposed EDYTA, probably from dehydration. Received IV fluids with improvement. Nephrology consulted. Creatinine today = 1.87. (3) Hypertension: Blood pressures running higher since colon resection a few weeks ago. Nephrology consulted to assist with management. (4) GERD (gastroesophageal reflux disease): Continue H2 danielle. (5) Lupus: Quiescent. (6) DVT prophylaxis: SQ heparin. Ambulate. (7) Discharge planning issues: Anticipated discharge to home. Primary care follow-up with Dr. Beasley. GI follow-up with [facility]. Subjective Recheck for multiple problems. Patient seen in their room around 1040. Able to eat a little oatmeal this morning. Has some mild RUQ discomfort- present before breakfast. No emesis. Review of Systems: Constitutional- no fever. Cardiac- no chest pain. Pulmonary- no cough or SOB. GI- as noted above. - no urinary symptoms. Otherwise, as noted above. Physical Exam Constitutional: no acute distress Eyes: + anicteric sclerae Respiratory: no respiratory distress Auscultation: lungs clear to auscultation bilaterally Cardiovascular: Rate/Rhythm: regular rate and regular rhythm Heart Sounds: + murmur (II/ systolic murmur at base); no gallop Vessels: no JVD Extremities: no calf tenderness and no edema Gastrointestinal (Abdomen): Inspection/Auscultation: normal bowel sounds; abdomen not distended Percussion/Palpation: abdomen soft; abdomen nontender Skin: no rashes, warm and dry Psychiatric: Orientation: alert and oriented x 3 Results & Data Vital Signs (Past 12 Hours) Vital Signs Temp Pulse Pulse Resp BP BP Pulse Ox 09/01/19 19:39 36.5 C 62 20 192/70 H 96 09/01/19 16:00 61 09/01/19 14:59 37.0 C 59 L 18 160/67 H 96 09/01/19 11:31 36.6 C 56 L 18 161/73 H 95 Laboratory Results Laboratory Results - last 24 hr 09/01/19 09/01/19 06:29 06:29 WBC 8.78 RBC 3.02 L Hgb 8.4 L Hct 26.7 L MCV 88.4 MCH 27.8 MCHC 31.5 L RDW Std Deviation 50.2 H RDW Coeff of Aurelia 15.5 H Plt Count 410 H MPV 9.2 Sodium 139 D Potassium 3.5 Chloride 110 H Carbon Dioxide 24 Anion Gap 5.0 BUN 26 H Creatinine 1.87 H D Est Cr Clr Drug Dosing 25.3 Est GFR ( Amer) 29.9 Est GFR (Non-Af Amer) 25.8 BUN/Creatinine Ratio 14.1 Glucose 115 H Calcium 7.9 L Total Bilirubin 0.5 AST 38 H ALT 27 Alkaline Phosphatase 100 Total Protein 6.3 L Albumin 2.2 L Globulin 4.1 H Albumin/Globulin Ratio 0.5 L Microbiology 08/30/19 20:19 Blood Aerobic Blood Culture - Preliminary No growth in Aerobic bottle after 48 hours. 08/30/19 20:19 Blood Anaerobic Blood Culture - Preliminary No growth in Anaerobic bottle after 48 hours. 08/30/19 20:17 Blood Aerobic Blood Culture - Preliminary No growth in Aerobic bottle after 48 hours. 08/30/19 20:17 Blood Anaerobic Blood Culture - Preliminary No growth in Anaerobic bottle after 48 hours. 08/30/19 17:00 Urine,Clean Catch Urine Culture - Final More than three types of organisms present, all moderate counts mixed probable skin grisel. No further identifications or sensitivities to follow. (1) Hypertension Hypertension type: essential hypertension Qualified Code(s): I10 - Essential (primary) hypertension
[2019-09-02] MEDS: METOCLOPRAMIDE HCL 10 MG TABLET PO SCH ×4 (00:11→17:27)
[2019-09-02] MEDS: DEXTROSE 5% 1,000 ML IV SCH (00:20)
[2019-09-02] MEDS: PIPERACILLIN/TAZOBACTAM 3.375 GM in DEXTROSE 5% 100 ML IV SCH ×3 (00:26→17:27)
[2019-09-02] MEDS: HEPARIN SOD 5,000 UNIT/0.5 ML VIAL SQ SCH ×3 (06:06→21:03)
[2019-09-02 06:50] LABS: Hematocrit (blood only) 28.1 % (37-47); Mean Corpuscular Hemoglobin 27.5 pg (25-34); Mean Corpuscular Volume 85.9 fL (80-100); Mean Platelet Volume 9.7 fL (7.4-10.4); Platelet Count 396 K/uL (130-400); RDW Coefficient of Variation 15.4 % (11.5-14.5); Red Blood Count 3.27 M/uL (4.2-5.4); White Blood Count 8.67 K/uL (4.8-10.8)
[2019-09-02 07:25] LABS: Albumin Level 2.3 gm/dl (3.4-5.0); BUN Creatinine Ratio 8.7 (10-20); Bilirubin Direct 0.1 mg/dl (0-0.2); Calcium 8.6 mg/dl (8.5-10.1); Creatinine Clr Calc Pharmacy 22.4 ml/min; Est GFR (African American) 25.9; Est GFR (Non-African American) 22.3; Potassium 3.4 mmol/L (3.5-5.1)
[2019-09-02 07:28] LABS: Albumin Globulin Ratio 0.5 (0.9-2); Bilirubin,Total 0.4 mg/dl (0.2-1); Globulin 4.4 gm/dl (2.5-4.0); Total Protein 6.7 gm/dl (6.4-8.2)
[2019-09-02] MEDS: CYANOCOBALAMIN 500 MCG TABLET (VITAMIN B-12) PO SCH (07:39)
[2019-09-02] MEDS: FAMOTIDINE 20 MG TAB PO SCH ×2 (07:39→21:04)
[2019-09-02] MEDS: METOPROLOL TARTRATE 100 MG TAB PO SCH ×2 (07:40→21:02)
[2019-09-02] MEDS: CLOPIDOGREL BISULFATE 75 MG TAB PO SCH (07:40)
[2019-09-02] MEDS: AMLODIPINE BESYLATE 5 MG TAB PO SCH (07:40)
[2019-09-02] MEDS: SERTRALINE HCL 50 MG TABLET PO SCH (07:41)
--- NOTE | 2019-09-02 07:45 | Surgery Progress Note ---
Date of Service September 02, 2019 Assessment & Plan (1) Nausea and vomiting: Patient not making much progress LFT's unremarkable and abdominal exam benign Will obtain HIDA scan today to evaluate for further gallbladder etiology Will follow up on results of scan Continue to replete lytes and IVF hydration (2) Poor appetite: Subjective Patient states she feels similar to yesterday. Still endorsing nausea. She ate half of her oatmeal at breakfast and an applesauce at dinner yesterday. She states she is passing BM's. Physical Exam Physical Exam: awake/alert Constitutional: no acute distress Respiratory: normal respiratory effort Gastrointestinal (Abdomen): Inspection/Auscultation: abdomen not distended Percussion/Palpation: abdomen soft; abdomen nontender Results & Data Vital Signs (Past 12 Hours) Vital Signs Temp Pulse Pulse Pulse Resp BP BP 09/02/19 07:25 36.8 C 58 L 18 186/72 H 09/02/19 02:41 36.9 C 57 L 16 171/67 H 172/70 H 09/02/19 00:39 56 L 09/01/19 23:19 37.0 C 58 L 16 159/62 H Pulse Ox 09/02/19 07:25 94 09/02/19 02:41 94 09/02/19 00:39 09/01/19 23:19 95 PG Care Time/CCT Total # of Minutes Spent Total Time Spent with Patient: Total time spent is greater than 50% in coordination of care (as documented) at patient's floor/unit and/or counseling patient:
[2019-09-02] MEDS ORDERED: SINCALIDE 1.4 MCG in 0.9 % SODIUM CHLORIDE 100 ML IV SCH (08:45)
[2019-09-02] MEDS ORDERED: MoRPHine SULFATE 2 MG/ML CARP ONE (09:23)
--- NOTE | 2019-09-02 10:15 | Nuclear Medicine Report ---
NUCLEAR HEPATOBILIARY SCAN CLINICAL HISTORY: Vomiting. Abnormal gallbladder. COMPARISON STUDY: Abdominal CT and abdominal ultrasound dated 08/20/2019.. TECHNIQUE: Dynamic images of the liver and anterior abdomen were obtained every 5 minutes for a total of 60 minutes following the IV administration of 5.4mCi of technetium 99m Choletec. The gallbladder was not visualized at 60 minutes. 2 mg of IV morphine sulfate with an administered with further imagi ng performed every 5 minutes for an additional 30 minutes. FINDINGS: The hepatobiliary scan shows prompt and homogeneous hepatic uptake. There is visualized act ivity within the intra and extrahepatic biliary tree at 5 minutes. There is normal biliary to bowel transit, with small bowel visualized by 10 minutes. The gallbladder was not visualized at 60 minutes . There was visualization the gallbladder at 65 minutes following morphine administration %. IMPRESSION: 1. Nonvisualization of the gallbladder at 60 minutes. 2. There is delayed visualization of the gallbladder following morphine administration. This indicate s patency of the cystic duct, and could indicate biliary dysfunction/chronic cholecystitis. Clinical correlation will be required. Electronically signed by: Chato Siddiqui M.D. 09/02/2019 10:14 AM
[2019-09-02] MEDS: POTASSIUM CHLORIDE 40 MEQ in DEXTROSE 5% 1,000 ML IV SCH ×2 (11:00→19:36)
--- NOTE | 2019-09-02 12:27 | Gastroenterology Progress Note ---
Date of Service September 02, 2019 Assessment & Plan (1) Nausea and vomiting: In light of recent normal EGD, nausea vomiting possibly related to gallbladder disease versus postoperative status. (2) Pneumobilia: Patient reports prior ERCP which explains pneumobilia. (3) Gallbladder mass: 1.9 cm stone vs. polyp. This was not present on prior imaging. It is reasonable to further define this with an OP EUS, if surgery/pt decide against cholecystecotmy. Present on Admission?: Yes Supervising Physician Co-Signing Physician Notes I have personally seen and examined the patient with LINDSAY Moy. Her note reflects my exam and findings. I agree with her impression and plan. Abno rmal HIDA. Surgery is planning starla . Tejas Tapia M.D. Subjective Ms. Lisa Davies is 73 yr old female admitted for nausea, poor po intake since colon resection for colon cancer in mid July at [facility]. US with 1.9cm gallbladder polyp vs. stone. HIDA today with slow uptake but patent ducts. Pt tells me less nausea this morning. Review of Systems Review of Systems: ROS: Gen: + weakness, + weight loss. No fevers Eyes: No eye redness, or pain, no recent vision changes Resp: No SOB, no cough Cardio: No palpitations/irregular beats, no chest pain GI: + nausea, generalized lower abdomen cramping discomfort related to surgery : Denies pain on urination Skin: No jaundice, itching or new rashes Physical Exam Constitutional: WD/WN, vitals as above + ill appearing Eyes: PERRL, conjunctivae normal, anicteric sclerae Neck: trachea midline, no thyromegaly Respiratory: normal respiratory effort, lungs clear to auscultation Cardiovascular: RRR, no murmur, no edema Gastrointestinal (Abdomen): Inspection/Auscultation: normal bowel sounds; abdomen not distended Percussion/Palpation: + abdomen tender (mild upper abdomen tenderness) and abdomen soft; no ascites Incision healing well, no discharge. Results & Data Vital Signs (Past 12 Hours) Vital Signs Temp Pulse Pulse Resp BP BP Pulse Ox 09/02/19 07:30 60 09/02/19 07:25 36.8 C 58 L 18 186/72 H 94 09/02/19 02:41 36.9 C 57 L 16 171/67 H 172/70 H 94 09/02/19 00:39 56 L Laboratory Results LFTs normal. Lipase 477 on 08/30. Diagnostic Findings HIDA: 1. Nonvisualization of the gallbladder at 60 minutes. 2. There is delayed visualization of the gallbladder following morphine administration. This indicates patency of the cystic duct, and could indicate biliary dysfunction/chronic cholecystitis. Clinical correlation will be required.
--- NOTE | 2019-09-02 14:06 | Nephrology Progress Note ---
Date of Service September 02, 2019 Assessment & Plan (1) Acute kidney injury superimposed on CKD: today remains at baseline of 1.8-2.0; presenting creatinine 2.6 on 08/30 and peak creatinine same. mejia 1.9 on 09/01; up a bit today to 2.1. poor po intake/N ongoing; HIDA surgical eval c/w chronic cholecystitis - for possible lap starla on 09/04. -daily bmp -cont to hold ARB -BP control as below -nsaid and other nephrotoxin avoidance to continue (2) Hypertension: on her OP bp regimen w/ exception of losartan, held appropriately. bp uncontrolled at times w/ 160-180s systolic -cont increased hydralazine to 75 mg tid -cont prn hydralazine dose for sbp > 160 >>> 10 mg po q4h -ensure pain/anxiety are controlled Subjective ongoing N and BLUQ pain; no po b/c of N; had HIDA > for possible lap starla on ; no VAZQUEZ, no sob, no chest pain/pressure; denies voiding concerns Review of Systems Review of Systems: All systems reviewed & are unremarkable except as noted in HPI & below Physical Exam Constitutional: well developed and well nourished; no acute distress (on RA) Eyes: EOM intact bilaterally ENMT: Ears: no external ear abnormality Nose: no external nose abnormality Mouth: + dry oral mucous membranes Neck: no nuchal rigidity Respiratory: normal respiratory effort; no respiratory distress Auscultation: lungs clear to auscultation bilaterally and + diminished lung sounds Cardiovascular: Rate/Rhythm: regular rate and regular rhythm (at about 60 bpm) Extremities: no edema Gastrointestinal (Abdomen): Inspection/Auscultation: normal bowel sounds (o rperhaps slgithly diminished) Percussion/Palpation: abdomen soft; abdomen nontender Musculoskeletal: Extremities: strength 5/5 throughout Skin: no rashes, warm and dry Neurologic: hammond, fluent speech, no tremor Psychiatric: A+Ox3, euthymic affect Results & Data Vital Signs (Past 12 Hours) Vital Signs Temp Pulse Pulse Resp BP BP Pulse Ox 09/02/19 07:30 60 09/02/19 07:25 36.8 C 58 L 18 186/72 H 94 09/02/19 02:41 36.9 C 57 L 16 171/67 H 172/70 H 94 Laboratory Results 09/02/19 06:38 09/02/19 06:38 (1) Hypertension Hypertension type: essential hypertension Qualified Code(s): I10 - Essential (primary) hypertension
--- NOTE | 2019-09-02 14:27 | Ultrasound Report ---
US venous doppler LE CLINICAL HISTORY: 73 years-old Female presenting with recent surgery, pain and swelling in the lower extremity, concern for DVT. TECHNIQUE: Real-time grayscale and color and spectral Doppler ultrasound imaging of the veins of the bilateral lower extremities was performed. Compression and augmentation were also utilized. COMPARISON: None. FINDINGS: RIGHT: Common femoral vein: Patent. Greater saphenous vein (superficial): Patent. Deep femoral vein: Patent. Femoral vein: Patent. Popliteal vein: Patent. Calf veins: Limited visualization though grossly patent. LEFT: Common femoral vein: Patent. Greater saphenous vein (superficial): Patent. Deep femoral vein: Patent. Femoral vein: Patent. Popliteal vein: Patent. Calf veins: Limited visualization though grossly patent. Other: None. IMPRESSION: No evidence of deep venous thrombosis. Electronically signed by: Alex Ibarra M.D. 09/02/2019 2:25 PM
--- NOTE | 2019-09-02 19:42 | Hospitalist Progress Note ---
Date of Service September 02, 2019 Assessment & Plan (1) Nausea and vomiting: Anorexia, nausea, and vomiting a few weeks after colon resection for colon cancer. 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 No bowel obstruction or perforated viscus, but: CT demonstrated minimal gallbladder distention and pneumobilia US demonstrated stone vs sludge ball in gallbladder, gallbladder distention, pneumobilia. Initially managed with bowel rest, IV fluids, IV antibiotics. GI and General Surgery consulted. Abdominal exam benign. HIDA scan consistent with chronic cholecystitis. Cholecystectomy recommended and is being considered, tentatively for . (2) Acute kidney injury superimposed on CKD: CKD IV with superimposed EDYTA, probably from dehydration. Received IV fluids with improvement. Nephrology consulted. Creatinine today = 2.11. (3) Hypertension: Blood pressures running higher since colon resection a few weeks ago. Nephrology consulted to assist with management. BP this morning 186/72. Titration of antihypertensive meds per Nephrology. (4) GERD (gastroesophageal reflux disease): Continue H2 danielle. (5) Lupus: Quiescent. (6) DVT prophylaxis: SQ heparin. Ambulate. (7) Discharge planning issues: Anticipated discharge to home. Primary care follow-up with Dr. Beasley. GI follow-up with [facility]. Subjective Recheck for multiple problems. Patient seen in their room around 0. HIDA scan today consistent with chronic cholecystitis. Ongoing nausea. No emesis today. No abdominal pain. Review of Systems: Constitutional- no fever. Cardiac- no chest pain. Pulmonary- no cough or SOB. GI- as noted above. - no urinary symptoms. Otherwise, as noted above. Physical Exam Constitutional: no acute distress Eyes: + anicteric sclerae Respiratory: no respiratory distress Auscultation: lungs clear to auscultation bilaterally Cardiovascular: Rate/Rhythm: regular rate and regular rhythm Heart Sounds: + murmur (II/ systolic murmur at base); no gallop Vessels: no JVD Extremities: no calf tenderness and no edema Gastrointestinal (Abdomen): Inspection/Auscultation: normal bowel sounds; abdomen not distended Percussion/Palpation: abdomen soft; abdomen nontender Skin: no rashes, warm and dry Psychiatric: Orientation: alert and oriented x 3 Results & Data Vital Signs (Past 12 Hours) Vital Signs Temp Pulse Resp BP Pulse Ox 09/02/19 15:40 36.6 C 56 L 18 146/65 H 95 09/02/19 14:46 62 178/69 H Laboratory Results 09/02/19 06:38 09/02/19 06:38 (1) Hypertension Hypertension type: essential hypertension Qualified Code(s): I10 - Essential (primary) hypertension
[2019-09-02] MEDS: ONDANSETRON INJ 2 MG/ML 2 ML VIAL IV PRN (21:00)
[2019-09-02] MEDS: ASPIRIN 81 MG ECTAB PO SCH (21:01)
[2019-09-02] MEDS: ALPRAZolam 0.5 MG TABLET PO SCH (21:01)
[2019-09-03] MEDS: PIPERACILLIN/TAZOBACTAM 3.375 GM in DEXTROSE 5% 100 ML IV SCH ×3 (00:17→17:58)
[2019-09-03] MEDS: METOCLOPRAMIDE HCL 10 MG TABLET PO SCH ×5 (00:18→23:50)
[2019-09-03] MEDS: ONDANSETRON INJ 2 MG/ML 2 ML VIAL IV PRN ×3 (02:46→15:40)
[2019-09-03] MEDS: POTASSIUM CHLORIDE 40 MEQ in DEXTROSE 5% 1,000 ML IV SCH ×3 (03:35→21:39)
[2019-09-03] MEDS: HEPARIN SOD 5,000 UNIT/0.5 ML VIAL SQ SCH ×3 (05:44→20:16)
[2019-09-03 07:07] LABS: BUN Creatinine Ratio 6.2 (10-20); Calcium 8.6 mg/dl (8.5-10.1); Creatinine Clr Calc Pharmacy 22.1 ml/min; Est GFR (African American) 25.4; Est GFR (Non-African American) 21.9; Potassium 4.2 mmol/L (3.5-5.1)
--- NOTE | 2019-09-03 07:21 | Nephrology Progress Note ---
Date of Service September 03, 2019 Assessment & Plan (1) Acute kidney injury superimposed on CKD: today remains at baseline of 1.8-2.0; presenting creatinine 2.6 on 08/30 and peak creatinine same. mejia 1.9 on 09/01; stable past 2 days at 2.1. poor po intake/N ongoing; HIDA surgical eval c/w chronic cholecystitis - for possible lap starla on 09/04. -daily bmp -cont to hold ARB -BP control as below -nsaid and other nephrotoxin avoidance to continue -she's on D5W w/ 40 mEq/L K at 125 >> personally would continue this IVF; she is voiding frequently but creatinine unchanged and voiding>> chemistries acceptable (2) Hypertension: on her OP bp regimen w/ exception of losartan, held appropriately. bp uncontrolled at times w/ 160-180s systolic -cont increased hydralazine to 75 mg tid -cont prn hydralazine dose for sbp > 160 >>> 10 mg po q4h -ensure pain/anxiety are controlled Subjective severe N and emesis this am NBNB. bp elevated. c/o urinary frequency/nocturia disrupting sleep Review of Systems Review of Systems: All systems reviewed & are unremarkable except as noted in HPI & below Physical Exam Constitutional: well developed, well nourished, + acute distress (on RA; mild- moderate d/t N) and + ill appearing Eyes: EOM intact bilaterally ENMT: Ears: no external ear abnormality Nose: no external nose abnormality Mouth: + dry oral mucous membranes Neck: no nuchal rigidity Respiratory: normal respiratory effort; no respiratory distress Auscultation: lungs clear to auscultation bilaterally and + diminished lung sounds Cardiovascular: Rate/Rhythm: regular rate and regular rhythm (at about 60 bpm) Extremities: no edema Gastrointestinal (Abdomen): Inspection/Auscultation: normal bowel sounds (o rperhaps slgithly diminished) Percussion/Palpation: abdomen soft; abdomen nontender Musculoskeletal: Extremities: strength 5/5 throughout Skin: no rashes, warm and dry Neurologic: hammond, fluent speech, no tremor Psychiatric: Orientation: alert and oriented x 3 Speech: normal rate/rhythm/volume of speech Affect: + anxious affect Results & Data Vital Signs (Past 12 Hours) Vital Signs Temp Pulse Pulse Resp BP Pulse Ox 09/03/19 07:03 36.8 C 68 19 189/80 H 96 09/03/19 03:11 37.0 C 63 18 162/73 H 95 09/03/19 00:35 63 09/02/19 23:10 37.0 C 64 19 175/70 H 96 (1) Hypertension Hypertension type: essential hypertension Qualified Code(s): I10 - Essential (primary) hypertension
[2019-09-03] MEDS: METOPROLOL TARTRATE 100 MG TAB PO SCH ×2 (08:11→20:15)
[2019-09-03] MEDS: CYANOCOBALAMIN 500 MCG TABLET (VITAMIN B-12) PO SCH (08:11)
[2019-09-03] MEDS: FAMOTIDINE 20 MG TAB PO SCH ×2 (08:11→20:16)
[2019-09-03] MEDS: CLOPIDOGREL BISULFATE 75 MG TAB PO SCH (08:11)
[2019-09-03] MEDS: AMLODIPINE BESYLATE 5 MG TAB PO SCH (08:11)
[2019-09-03] MEDS: SERTRALINE HCL 50 MG TABLET PO SCH (08:12)
--- NOTE | 2019-09-03 12:56 | Surgery Progress Note ---
Date of Service September 03, 2019 Assessment & Plan (1) Nausea and vomiting: We discussed our options. will recheck LFT's and lipase. At this point with no other clear etiology, I think lap starla is reasonable. we discussed that there is no guarantee that her symptoms will resolve after. discussed other options/risks ( bleeding/infection/dvt/pe/mi/cva/injury to other organs such as bowel, liver, bile ducts etc.... questions answered. will plan on lap starla tomorrow. questions answered. (2) Gallstones: Subjective pt seen. continues to be nauseated. " can't eat". Review of Systems Review of Systems: All systems reviewed & are unremarkable except as noted in HPI & below Physical Exam Constitutional: WD/WN, vitals as above no acute distress and not ill appearing Eyes: PERRL, conjunctivae normal, anicteric sclerae EOM intact bilaterally ENMT: external ear and nose normal, oropharynx normal Ears: no hearing impairment Neck: trachea midline, no thyromegaly Respiratory: normal respiratory effort; no respiratory distress and does not use accessory muscles Cardiovascular: Rate/Rhythm: regular rate and regular rhythm Gastrointestinal (Abdomen): normal bowel sounds, soft, nontender, no hepatosplenomegaly Skin: no rashes, warm and dry Psychiatric: Orientation: alert, oriented x 3 and cooperative Results & Data Vital Signs (Past 12 Hours) Vital Signs Temp Pulse Pulse Pulse Resp BP BP 09/03/19 11:16 36.9 C 61 61 18 172/67 H 09/03/19 09:41 154/80 H 09/03/19 07:22 62 09/03/19 07:03 36.8 C 68 19 189/80 H 09/03/19 03:11 37.0 C 63 18 162/73 H Pulse Ox 09/03/19 11:16 93 09/03/19 09:41 09/03/19 07:22 09/03/19 07:03 96 09/03/19 03:11 95 PG Care Time/CCT Total # of Minutes Spent Total Time Spent with Patient: Total time spent is greater than 50% in coordination of care (as documented) at patient's floor/unit and/or counseling patient:
--- NOTE | 2019-09-03 14:09 | Hospitalist Progress Note ---
Date of Service September 03, 2019 Assessment & Plan (1) Nausea and vomiting: Presented with Anorexia, nausea, and vomiting after colon resection for colon cancer. H/O Caroli's disease --CT ABD:No abscess. No bowel obstruction. Mild left abdominal infiltration which is likely postsurgical. Pneumobilia. A few locules of gas within the gallbladder which is likely related. Minimal gallbladder distention without pericholecystic infiltration. 2.4 x 1.6 cm subcapsular segment 8 hypodensity. In part, this could reflect ductal dilatation. This is suboptimally assessed on this unenhanced exam and comparison with prior imaging studies, if available, is recommended. If no priors, a nonemergent MRI of the liver is recommended. Marked left renal atrophy. No hydronephrosis. --Gall Bladder USD:Stone versus sludge ball within the gallbladder. Mild gallbladder distention. No sonographic Sierra sign. No evidence for acute cholecystitis by sonography. Pneumobilia. No biliary dilatation. --HIDA Scan:Nonvisualization of the gallbladder at 60 minutes. There is delayed visualization of the gallbladder following morphine administration. This indicates patency of the cystic duct, and could indicate biliary dysfunction/chronic cholecystitis. Clinical correlation will be required. --Normal Recent EGD --Continue IV zosyn, IV Fluids --Appreciate GI, Surgery Input --Planned for Cholecystectomy tomorrow (2) Acute kidney injury superimposed on CKD: EDYTA on CKD IV Likely due to dehydration from poor oral intake Baseline Cr: 1.8 -2.0 Hold Losartan for now On IV fluids Appreciate Nephrology Input Monitor renal function Avoid Nephrotoxic agents as able (3) Hypertension: Continue hydralazine increased to 75 mg TID Losartan on hold due to EDYTA Continue amlodipine 10 mg daily, metoprolol 100 mg BID Nephrology on board (4) GERD (gastroesophageal reflux disease): Continue Pepcid (5) Lupus: Stable (6) DVT prophylaxis: SQ heparin (7) Discharge planning issues: Expect to discharge home when medically stable PT/OT prior to discharge Primary care follow-up with Dr. Beasley. GI follow-up with [facility]. Subjective Patient is seen and examined at bedside Reports nausea and vomiting this morning Poor appetite secondary to nausea Denies any abdominal pain, chest pain, shortness of breath, dizziness Planned for cholecystectomy tomorrow Review of Systems Review of Systems: All systems reviewed & are unremarkable except as noted in HPI & below Physical Exam Physical Exam: Physical Exam: Vitals signs as noted above General Appearance:Moderately built and nourished, no apparent distress Head: normocephalic, Atraumatic Eyes: normal inspection, EOMI Neck: supple, Trachea midline Respiratory/Chest: Normal breath sounds, CTA Cardiovascular: S1, S2, +systolic murmur Abdomen/GI:Soft, Non tender, Bowel sounds present Extremities/Musculoskelatal:normal inspection, no edema Neurologic/Psych:AAOX3, grossly no focal neurological deficits Skin: normal color, warm Results & Data Vital Signs (Past 12 Hours) Vital Signs Temp Pulse Pulse Pulse Resp BP BP 09/03/19 11:16 36.9 C 61 61 18 172/67 H 09/03/19 09:41 154/80 H 09/03/19 07:22 62 09/03/19 07:03 36.8 C 68 19 189/80 H 09/03/19 03:11 37.0 C 63 18 162/73 H Pulse Ox 09/03/19 11:16 93 09/03/19 09:41 09/03/19 07:22 09/03/19 07:03 96 09/03/19 03:11 95 Laboratory Results BMP 09/03/19 05:56 Sodium 133 L Potassium 4.2 D Chloride 105 Carbon Dioxide 21 BUN 13 Creatinine 2.14 H Glucose 127 H Calcium 8.6 (1) Hypertension Hypertension type: essential hypertension Qualified Code(s): I10 - Essential (primary) hypertension
--- NOTE | 2019-09-03 14:48 | Anesthesiology Consultation ---
Date of Service September 03, 2019 Assessment & Plan (1) Encounter for pre-operative examination: Chart Review Chart Review: Acceptable Risk for Surgery and Patient NOT seen in Pre Admission Testing It is unclear as to why this patient had such a delayed awakening post-op after her abdominal surgery in Jul 2019 at [facility] as we do not have access to this record. I spoke to her at length and stated this surgery would likely be shorter in duration, the anesthesia team could consider avoiding benzos and high doses of narcotics. General anesthesia was explained to the patient and all of her questions were answered. Consent will be signed tomorrow in preop holding. She was instructed to be NPO after midnight. Of note, patient has been very nauseated and has had episodes of vomiting during this admission so may need to take aspiration precautions. Consults Requested none History Surgery Operation Date: 09/04/19 13:10 Proposed Procedures p Laparoscopic Cholecystectomy - Ronny Madsen, DO Height/Weight Height: 5 ft 7 in Weight: 69.2 kg Allergies Allergy/AdvReac Type Severity Reaction Status Date / Time Iodinated Contrast Media Allergy Severe HIVES/DIFFICULTY Verified 08/30/19 16:38 SWALLOWING Medications Home Medications Medication Instructions Recorded Confirmed Last Taken aspirin 81 mg PO HS 08/19/18 08/30/19 09/10/18 clopidogrel 75 mg PO QAM 08/19/18 08/30/19 09/10/18 cyanocobalamin (vitamin B-12) 1,000 mcg PO QAM 08/19/18 08/30/19 09/18/18 08:00 losartan 100 mg PO QAM 08/19/18 08/30/19 09/15/18 ranitidine HCl 150 mg PO BID 08/19/18 08/30/19 09/18/18 08:00 alprazolam 0.25 mg PO BID PRN 08/30/19 08/30/19 Unknown alprazolam 0.5 mg PO HS 08/30/19 08/30/19 Unknown amlodipine 10 mg PO DAILY 08/30/19 08/30/19 Unknown hydralazine 50 mg PO TID 08/30/19 08/30/19 Unknown metoprolol tartrate [Lopressor] 100 mg PO BID 08/30/19 08/30/19 Unknown sertraline 50 mg PO DAILY 08/30/19 08/30/19 Unknown tramadol 50 mg PO Q6H PRN 08/30/19 08/30/19 Unknown Active Medications Generic Name Dose Route Start Last Admin Trade Name Gisele PRN Reason Stop Dose Admin Alprazolam 0.5 mg 08/30/19 21:00 09/02/19 21:01 Xanax PO 09/29/19 20:59 0.5 mg HS REUBEN Administration Amlodipine Besylate 10 mg 08/31/19 09:00 09/03/19 08:11 Norvasc PO 09/30/19 08:59 10 mg DAILY REUBEN Administration Aspirin 81 mg 08/30/19 21:00 09/02/19 21:01 Ecotrin Ectab PO 09/29/19 20:59 81 mg HS REUBEN Administration Clopidogrel Bisulfate 75 mg 08/31/19 09:00 09/03/19 08:11 Plavix PO 09/30/19 08:59 75 mg QAM REUBEN Administration Cyanocobalamin 1,000 mcg 08/31/19 09:00 09/03/19 08:11 Vitamin B-12 PO 09/30/19 08:59 1,000 mcg QAM REUBEN Administration Famotidine 20 mg 08/30/19 21:00 09/03/19 08:11 Pepcid PO 09/29/19 20:59 20 mg BID REUBEN Administration Heparin Sodium (Porcine) 5,000 units 08/30/19 22:00 09/03/19 13:39 Heparin Sodium (Porcine) SQ 09/29/19 21:59 5,000 units Q8 REUBEN Administration Hydralazine HCl 75 mg 09/01/19 10:00 09/03/19 13:39 Apresoline PO 10/01/19 09:59 75 mg TID REUBEN Administration Piperacillin Sod/Tazobactam 115 mls @ 28.75 mls/hr 08/31/19 17:00 09/03/19 13:48 Sod 3.375 gm/ Dextrose IV 09/09/19 16:59 Infused Q8H REUBEN Infusion Protocol Potassium Chloride 40 meq/ 1,020 mls @ 125 mls/hr 09/02/19 10:30 09/03/19 13:17 Dextrose IV 10/02/19 10:29 125 mls/hr .Q8H10M REUBEN Administration Metoclopramide HCl 10 mg 09/01/19 12:00 09/03/19 13:17 Reglan PO 10/01/19 11:59 10 mg Q6 REUBEN Administration Metoprolol Tartrate 100 mg 08/30/19 21:00 09/03/19 08:11 Lopressor PO 09/29/19 20:59 100 mg BID REUBEN Administration Ondansetron HCl 4 mg 08/30/19 19:58 09/03/19 08:22 Zofran IV 09/29/19 19:57 4 mg Q6H PRN Administration Nausea Sertraline HCl 50 mg 08/31/19 09:00 09/03/19 08:12 Zoloft PO 09/30/19 08:59 50 mg DAILY REUBEN Administration Past Medical History Medical History (Updated 09/03/19 @ 15:19 by Juvencio Hernadez MD) Atrophy of left kidney Cancer MULTIPLE SKIN CANCER REMOVALS (RADIATION FOR SKIN CANCER/UPPER LIP) Carolis disease (Chronic) CKD (chronic kidney disease), stage IV (Chronic) Endometriosis GERD (gastroesophageal reflux disease) (Chronic) History of CVA (cerebrovascular accident) (Chronic) 2016, no residual deficits Hyperlipidemia Hypertension (Chronic) Lupus (Chronic) Migraine Mood disorder Osteoarthritis Past Family History Family History Father Family hx colonic polyps Sister Cholangiocarcinoma Other Alzheimer disease Heart disease Hypertension Past Surgical History Surgical History (Updated 09/03/19 @ 15:17 by Juvencio Hernadez MD) History of colon resection (Chronic) Aug 05 2019 at [facility]. Patient stated she had surgery early in the morning and didn't remember waking up until 1 AM. She is unaware of how long the procedure was and she was not intubated post-op. History of colonoscopy History of esophagogastroduodenoscopy (EGD) History of tonsillectomy History of tooth extraction History of total abdominal hysterectomy and bilateral salpingo-oophorectomy Social History Smoking Status: Never smoker Hx Alcohol Use: No Hx Substance Use: No substance use type: does not use Physical Exam Vital Signs Last Vital Signs Temp 36.9 C 09/03/19 11:16 Pulse 61 09/03/19 11:16 Resp 18 09/03/19 11:16 BP 172/67 H 09/03/19 11:16 Pulse Ox 93 09/03/19 11:16 ENMT Mouth: + dentures Testing Laboratory Results 09/02/19 06:38 09/03/19 05:56 Urine Color Yellow 08/30/19 17:00 Urine Appearance Clear (Clear) 08/30/19 17:00 Urine pH 5.5 (4.5-7.5) 08/30/19 17:00 Ur Specific [place] >= 1.030 (1.000-1.030) 08/30/19 17:00 Urine Protein Trace (Negative) H 08/30/19 17:00 Urine Glucose (UA) Negative (Negative) 08/30/19 17:00 Urine Ketones Negative (Negative) 08/30/19 17:00 Urine Nitrite Negative (Negative) 08/30/19 17:00 Ur Leukocyte Esterase 2+ (Negative) H 08/30/19 17:00 Urine RBC 0-4 /hpf (0-4) 08/30/19 17:00 Urine WBC >30 /hpf (0-5) H 08/30/19 17:00 Ur Epithelial Cells >30 /lpf (0-5) H 08/30/19 17:00 08/30/19 20:19 Aerobic Blood Culture - Preliminary Blood No growth in Aerobic bottle after 48 hours. Anaerobic Blood Culture - Preliminary No growth in Anaerobic bottle after 48 hours. 08/30/19 20:17 Aerobic Blood Culture - Preliminary Blood No growth in Aerobic bottle after 48 hours. Anaerobic Blood Culture - Preliminary No growth in Anaerobic bottle after 48 hours. 08/30/19 17:00 Urine Culture - Final Urine,Clean Catch More than three types of organisms present, all moderate counts mixed probable skin grisel. No further identifications or sensitivities to follow. Electrocardiogram Date: 08/30/19 Findings: + NSR @ (62) Normal sinus rhythm Moderate voltage criteria for LVH, may be normal variant Borderline ECG No previous ECGs available Confirmed by Dwaine Hagen ([id number]) on 08/31/2019 3:13:57 PM
[2019-09-03] MEDS: HydrALAZINE 10 MG TAB PO PRN (16:42)
[2019-09-03] MEDS: ALPRAZolam 0.5 MG TABLET PO SCH (20:14)
[2019-09-03] MEDS: ASPIRIN 81 MG ECTAB PO SCH (20:16)
[2019-09-04] MEDS: ONDANSETRON INJ 2 MG/ML 2 ML VIAL IV PRN ×2 (00:09→13:29)
[2019-09-04] MEDS: PIPERACILLIN/TAZOBACTAM 3.375 GM in DEXTROSE 5% 100 ML IV SCH ×3 (01:23→17:23)
[2019-09-04] MEDS: HEPARIN SOD 5,000 UNIT/0.5 ML VIAL SQ SCH ×3 (06:03→22:09)
[2019-09-04] MEDS: METOCLOPRAMIDE HCL 10 MG TABLET PO SCH ×3 (06:03→17:22)
[2019-09-04 06:57] LABS: Hematocrit (blood only) 28.6 % (37-47); Hemoglobin 9.1 g/dL (12.0-16.0); Mean Corpuscular Hemoglobin 27.3 pg (25-34); Mean Corpuscular Hgb Conc 31.8 g/dL (32-36); Mean Corpuscular Volume 85.9 fL (80-100); Mean Platelet Volume 9.9 fL (7.4-10.4); Platelet Count 402 K/uL (130-400); RDW Coefficient of Variation 15.8 % (11.5-14.5); RDW Standard Deviation 48.5 fL (36.4-46.3); Red Blood Count 3.33 M/uL (4.2-5.4); White Blood Count 11.29 K/uL (4.8-10.8)
[2019-09-04 07:42] LABS: Albumin Level 2.4 gm/dl (3.4-5.0); BUN Creatinine Ratio 4.7 (10-20); Bilirubin,Total 0.5 mg/dl (0.2-1); Creatinine Clr Calc Pharmacy 21.8 ml/min; Est GFR (Non-African American) 21.6; Total Protein 6.9 gm/dl (6.4-8.2)
[2019-09-04] MEDS: METOPROLOL TARTRATE 100 MG TAB PO SCH ×2 (08:07→20:17)
[2019-09-04] MEDS: AMLODIPINE BESYLATE 5 MG TAB PO SCH (08:07)
[2019-09-04] MEDS: FAMOTIDINE 20 MG TAB PO SCH ×2 (08:07→20:18)
[2019-09-04] MEDS: CLOPIDOGREL BISULFATE 75 MG TAB PO SCH (08:18)
[2019-09-04] MEDS: CYANOCOBALAMIN 500 MCG TABLET (VITAMIN B-12) PO SCH (08:19)
[2019-09-04] MEDS: SERTRALINE HCL 50 MG TABLET PO SCH (08:20)
[2019-09-04 08:49] LABS: Potassium 4.1 mmol/L (3.5-5.1)
[2019-09-04 08:55] LABS: Bilirubin Direct 0.2 mg/dl (0-0.2)
--- NOTE | 2019-09-04 12:47 | Hospitalist Progress Note ---
Date of Service September 04, 2019 Assessment & Plan (1) Nausea and vomiting: Presented with Anorexia, nausea, and vomiting after colon resection for colon cancer. H/O Caroli's disease --CT ABD:No abscess. No bowel obstruction. Mild left abdominal infiltration which is likely postsurgical. Pneumobilia. A few locules of gas within the gallbladder which is likely related. Minimal gallbladder distention without pericholecystic infiltration. 2.4 x 1.6 cm subcapsular segment 8 hypodensity. In part, this could reflect ductal dilatation. This is suboptimally assessed on this unenhanced exam and comparison with prior imaging studies, if available, is recommended. If no priors, a nonemergent MRI of the liver is recommended. Marked left renal atrophy. No hydronephrosis. --Gall Bladder USD:Stone versus sludge ball within the gallbladder. Mild gallbladder distention. No sonographic Sierra sign. No evidence for acute cholecystitis by sonography. Pneumobilia. No biliary dilatation. --HIDA Scan:Nonvisualization of the gallbladder at 60 minutes. There is delayed visualization of the gallbladder following morphine administration. This indicates patency of the cystic duct, and could indicate biliary dysfunction/chronic cholecystitis. Clinical correlation will be required. --Normal Recent EGD --Blood Cx: No growth to date --Continue IV zosyn --Received IV Fluids --Appreciate GI, Surgery Input --Planned for Cholecystectomy today --No nausea, vomiting today (2) Acute kidney injury superimposed on CKD: EDYTA on CKD IV Likely due to dehydration from poor oral intake Baseline Cr: 1.8 -2.0 Hold Losartan for now Received IV fluids Appreciate Nephrology Input Monitor renal function Avoid Nephrotoxic agents as able (3) Hypertension: Continue hydralazine increased to 75 mg TID Losartan on hold due to EDYTA Continue amlodipine 10 mg daily, metoprolol 100 mg BID Nephrology on board (4) GERD (gastroesophageal reflux disease): Continue Pepcid (5) Lupus: Stable (6) DVT prophylaxis: SQ heparin (7) Discharge planning issues: Expect to discharge home when medically stable PT/OT prior to discharge Primary care follow-up with Dr. Beasley. GI follow-up with [facility]. Subjective Patient is seen and examined at bedside States feeling better today Denies nausea, vomiting, abdominal pain today Also denies chest pain, shortness of breath, dizziness Planned for cholecystectomy today Family at bedside Review of Systems Review of Systems: All systems reviewed & are unremarkable except as noted in HPI & below Physical Exam Physical Exam: Physical Exam: Vitals signs as noted above General Appearance:Moderately built and nourished, no apparent distress Head: normocephalic, Atraumatic Eyes: normal inspection, EOMI Neck: supple, Trachea midline Respiratory/Chest: Normal breath sounds, CTA Cardiovascular: S1, S2, +systolic murmur Abdomen/GI:Soft, Non tender, Bowel sounds present Extremities/Musculoskelatal:normal inspection, no edema Neurologic/Psych:AAOX3, grossly no focal neurological deficits Skin: normal color, warm Results & Data Vital Signs (Past 12 Hours) Vital Signs Temp Pulse Pulse Resp BP BP Pulse Ox 09/04/19 11:31 37.2 C 60 16 172/69 H 94 09/04/19 08:00 63 09/04/19 07:26 37.5 C 63 16 173/55 H 95 09/04/19 02:25 36.7 C 64 19 162/72 H 94 09/04/19 01:40 37.0 C 63 19 166/63 H 94 Laboratory Results Short CBC 09/04/19 Range/Units 06:27 WBC 11.29 H (4.8-10.8) K/uL Hgb 9.1 L (12.0-16.0) g/dL Hct 28.6 L (37-47) % Plt Count 402 H (130-400) K/uL BMP 09/04/19 09/04/19 06:27 08:22 Sodium 135 L Potassium 4.1 Chloride 106 Carbon Dioxide 23 BUN 10 Creatinine 2.17 H Glucose 98 Calcium 9.0 Liver Function 09/04/19 09/04/19 Range/Units 06:27 08:22 Total Bilirubin 0.5 (0.2-1) mg/dl Direct Bilirubin 0.2 (0-0.2) mg/dl AST 40 H (15-37) U/L ALT 31 (12-78) U/L Alkaline Phosphatase 107 (45-117) U/L Albumin 2.4 L (3.4-5.0) gm/dl (1) Hypertension Hypertension type: essential hypertension Qualified Code(s): I10 - Essential (primary) hypertension
--- NOTE | 2019-09-04 13:18 | Progress Note ---
DATE: 09/04/2019 HISTORY OF PRESENT ILLNESS: Dr. Madsen from surgery called me and asked me to relook at the patient. He was concerned that there may be biliary or other GI issues with the patient that should be ruled out before proceeding with cholecystectomy. The patient states that she still continues to have a poor appetite though she has not had any nausea or vomiting today and she has been moving her bowels. There is no documented fever. Her abdomen is soft. She has good bowel sounds. Skin is anicteric. Eyes show anicteric sclerae. Mouth is dry but otherwise clear lesions. LABORATORY DATA: Her white blood cell count is slightly elevated today at 11.2, platelets are slightly elevated at 402. Her lipase is also slightly elevated at 562, upper limit of normal at 393. Her lipase was also slightly elevated on 08/30/2019. Bilirubin is normal, alkaline phosphatase is normal. Her CAT scan on admission was without contrast. No sinister pathology was seen. IMPRESSION/PLAN: I see no indication for an MRCP. The patient's bilirubin is normal. She has no abdominal pain, so I think this lipase elevation is either related to postop status from bowel surgery, but does not meet the criteria; however, for pancreatitis since it is not 2-3 times the upper limit of normal. I think it is reasonable given the slightly elevated white count and her continued symptoms to repeat a CAT scan with contrast, this way we would get better imaging. This would help look for further pathology that may explain her symptoms.. DIONNED
--- NOTE | 2019-09-04 14:08 | Surgery Progress Note ---
Date of Service September 04, 2019 Assessment & Plan (1) Nausea and vomiting: pt with elevated lipase and wbc elevated today. I am not convinced simple gallstones as etiology d/w GI and they agree. will put lap starla on hold. repeat CT scan with contrast this time. may want to consider parenteral nutrition soon Subjective pt seen. continues to be nauseated despite not eating. emesis last night but not today. Physical Exam Physical Exam: alert. nad Heart: RRR Lungs: CTA Abd: soft. nt. nd. wound looks good. Results & Data Vital Signs (Past 12 Hours) Vital Signs Temp Pulse Pulse Resp BP Pulse Ox 09/04/19 13:36 177/68 H 09/04/19 11:31 37.2 C 60 16 172/69 H 94 09/04/19 08:00 63 09/04/19 07:26 37.5 C 63 16 173/55 H 95 09/04/19 02:25 36.7 C 64 19 162/72 H 94 PG Care Time/CCT Total # of Minutes Spent Total Time Spent with Patient: Total time spent is greater than 50% in coordination of care (as documented) at patient's floor/unit and/or counseling patient:
[2019-09-04] MEDS ORDERED: IOVERSOL 100ml IV PRN (15:53)
--- NOTE | 2019-09-04 16:09 | Nephrology Progress Note ---
Date of Service September 04, 2019 Assessment & Plan (1) Acute kidney injury superimposed on CKD: today a bit above baseline of 1.8-2.0; presenting creatinine 2.6 on 08/30 and peak creatinine same. mejia 1.9 on 09/01; stable x 2 days at 2.1, today up to 2.2. poor po intake/N ongoing; HIDA surgical eval c/w chronic cholecystitis - lap starla deferred. -daily bmp -cont to hold ARB -BP control as below -nsaid and other nephrotoxin avoidance to continue -IVF stopped ? d/t voiding frequently but creatinine unchanged and voiding>> chemistries acceptable; consider PPN if no IVF (2) Hypertension: on her OP bp regimen w/ exception of losartan, held appropriately. bp remains uncontrolled at times w/ 160-180s systolic -increased hydralazine to 100 mg tid -cont CCB 10 daily, cont bb -cont prn hydralazine dose for sbp > 160 >>> 10 mg po q4h -ensure pain/anxiety are controlled Subjective for OR today; no time yet when I saw her on rounds at 0810. ongoing N but a bit less today; no abd pain at time I saw her. later today surg eval cancelled OR; consider PPN; concern for more than gallstones (susch as pancreas driiving emesis/N Review of Systems Review of Systems: All systems reviewed & are unremarkable except as noted in HPI & below Respiratory: no cough and no dyspnea Cardiovascular: no chest pain, no palpitations and no edema Physical Exam Constitutional: well developed, well nourished, + acute distress (on RA; slight; less N today) and + ill appearing Eyes: EOM intact bilaterally ENMT: Ears: no external ear abnormality Nose: no external nose abnormality Mouth: + dry oral mucous membranes Neck: no nuchal rigidity Respiratory: normal respiratory effort; no respiratory distress Auscultation: lungs clear to auscultation bilaterally and + diminished lung sounds Cardiovascular: Rate/Rhythm: regular rate and regular rhythm (at about 60 bpm) Extremities: no edema Gastrointestinal (Abdomen): Inspection/Auscultation: normal bowel sounds (o rperhaps slgithly diminished) Percussion/Palpation: abdomen soft; abdomen nontender Musculoskeletal: Extremities: strength 5/5 throughout Skin: no rashes, warm and dry Psychiatric: A+Ox3, euthymic affect Orientation: alert and oriented x 3 Speech: normal rate/rhythm/volume of speech Affect: + anxious affect Results & Data Vital Signs (Past 12 Hours) Vital Signs Temp Pulse Pulse Resp BP Pulse Ox 09/04/19 15:52 36.6 C 62 16 183/63 H 93 09/04/19 13:36 177/68 H 09/04/19 11:31 37.2 C 60 16 172/69 H 94 09/04/19 08:00 63 09/04/19 07:26 37.5 C 63 16 173/55 H 95 Laboratory Results 09/04/19 06:27 09/04/19 08:22 (1) Hypertension Hypertension type: essential hypertension Qualified Code(s): I10 - Essential (primary) hypertension
--- NOTE | 2019-09-04 16:11 | CT Scan Report ---
CT SCAN OF THE ABDOMEN AND PELVIS WITH IV CONTRAST CLINICAL HISTORY: Early satiety. Leukocytosis. Recent colon surgery. COMPARISON STUDY: Abdominal CT dated 08/30/2019. TECHNIQUE: Following the IV administration of 93 cc of Optiray 320, CT scan of the abdomen and pelvi s is performed from the lung bases to the proximal femora. Images are reviewed in the axial, sagittal , and coronal planes. IV contrast was administered without complication. Oral contrast was utilized. A dose lowering technique was utilized adhering to the principles of ALARA. CT DOSE: 531.03 mGycm FINDINGS: Lung bases: The heart is normal in size and without pericardial effusion. The coronary arteries are d ensely calcified. There is a small hiatal hernia. Emphysematous change is suspected. Scarring/atelect asis is seen at the lung bases. No airspace consolidation or pleural effusion is identified. Calcifie d granulomas noted in the left lower lobe. Liver: The contrast-enhanced liver is normal in size, contour, and attenuation. There is minimal intr ahepatic biliary ductal dilatation. Pneumobilia is noted. The hepatic veins and portal veins are concepcion nt. A 2.3 cm serpiginous cystic structure is again seen in the left lobe. There is an adjacent calcif ication. Gallbladder: Unremarkable. Spleen: Normal in size and attenuation. Pancreas: Atrophic and grossly unremarkable. Adrenal glands: Unremarkable. Kidneys: There is asymmetric cortical atrophy of the left kidney as compared to the right. The kidney s enhance symmetrically. An 11 mm cyst is noted in the right. Abdominal vasculature: The abdominal aorta is normal in course and caliber noting advanced atheromato us change. Bowel: There is no bowel obstruction. Enteric contrast reaches the right colon. The appendix is well -visualized and normal. Peritoneum: There is no intraperitoneal free air or abdominal ascites. There is a small fat-containin g umbilical hernia. Lymphadenopathy: None. Pelvic viscera: The bladder is decompressed and grossly unremarkable. The uterus is surgically absent . No adnexal lesion is seen. Skeletal structures: The skeletal structures are osteopenic. Mild lumbosacral spondylosis is observed . No lytic or blastic lesions are seen. IMPRESSION: 1. There are no acute infectious or inflammatory findings in the abdomen or pelvis. 2. Pneumobilia is noted and similar to previous. 3. There is unchanged appearance of a 2.3 cm serpiginous cystic structure identified in the left lobe of liver. This is of indeterminant significance and may represent a lobulated cyst or possibly a foc ally dilated bile duct. 4. Suspect emphysema. 5. Additional findings as above. ACT 112: Negative or not required by law. Electronically signed by: Chato Siddiqui M.D. 09/04/2019 4:10 PM
[2019-09-04] MEDS: HydrALAZINE TAB 50 MG TAB PO SCH (20:14)
[2019-09-04] MEDS: ASPIRIN 81 MG ECTAB PO SCH (20:17)
[2019-09-04] MEDS: ALPRAZolam 0.5 MG TABLET PO SCH (20:22)
[2019-09-05] MEDS: PIPERACILLIN/TAZOBACTAM 3.375 GM in DEXTROSE 5% 100 ML IV SCH ×3 (00:09→16:18)
[2019-09-05] MEDS: METOCLOPRAMIDE HCL 10 MG TABLET PO SCH ×4 (00:09→16:20)
[2019-09-05] MEDS: HEPARIN SOD 5,000 UNIT/0.5 ML VIAL SQ SCH ×3 (05:05→20:31)
[2019-09-05] MEDS: HydrALAZINE 10 MG TAB PO PRN ×2 (05:05→16:19)
[2019-09-05 07:31] LABS: Hematocrit (blood only) 28.4 % (37-47); Hemoglobin 9.2 g/dL (12.0-16.0); Mean Corpuscular Hgb Conc 32.4 g/dL (32-36); Mean Corpuscular Volume 86.3 fL (80-100); Mean Platelet Volume 9.3 fL (7.4-10.4); Platelet Count 371 K/uL (130-400); RDW Coefficient of Variation 16.2 % (11.5-14.5); RDW Standard Deviation 49.8 fL (36.4-46.3); Red Blood Count 3.29 M/uL (4.2-5.4)
[2019-09-05 07:58] LABS: BUN Creatinine Ratio 5.3 (10-20); Calcium 8.9 mg/dl (8.5-10.1); Creatinine Clr Calc Pharmacy 21.4 ml/min; Est GFR (African American) 24.5; Est GFR (Non-African American) 21.1; Potassium 3.5 mmol/L (3.5-5.1)
[2019-09-05] MEDS: AMLODIPINE BESYLATE 5 MG TAB PO SCH (08:40)
[2019-09-05] MEDS: FAMOTIDINE 20 MG TAB PO SCH ×2 (08:40→20:31)
[2019-09-05] MEDS: CLOPIDOGREL BISULFATE 75 MG TAB PO SCH (08:40)
[2019-09-05] MEDS: METOPROLOL TARTRATE 100 MG TAB PO SCH ×2 (08:40→20:31)
[2019-09-05] MEDS: CYANOCOBALAMIN 500 MCG TABLET (VITAMIN B-12) PO SCH (08:41)
[2019-09-05] MEDS: SERTRALINE HCL 50 MG TABLET PO SCH (08:41)
[2019-09-05] MEDS: HydrALAZINE TAB 50 MG TAB PO SCH ×2 (08:41→12:50)
--- NOTE | 2019-09-05 09:15 | XRay Report ---
XR chest 2V PA/lateral HISTORY: Leukocytosis COMPARISON: None. FINDINGS: The lungs are clear. Cardiac silhouette is normal in size. No pleural effusions. No pneumot horax. IMPRESSION: No acute process. ACT 112: Negative or not required by law. Electronically signed by: Wilfredo Garzon M.D. 09/05/2019 9:14 AM
--- NOTE | 2019-09-05 10:59 | Surgery Progress Note ---
Date of Service September 05, 2019 Assessment & Plan (1) Nausea and vomiting: ? etiology. I personally do not think it's her gallbladder and GI agrees. will order a gastric emptying study will start/try megace re-start diet recommend PT ( pt just laying in bed all day) follow WBC...? etiology hold plavix if gastric emptying negative we may have no choice but to try cholecystectomy which we can do sunday or sunday if no improvement and gastric emptying negative. (2) Poor appetite: Subjective pt seen. no nausea currently but has not eaten. no pain. no other symptoms. Physical Exam 2 Physical Exam: alert. nad abd: soft. nt. nd. wound well healed Results & Data Vital Signs (Past 12 Hours) Vital Signs Temp Pulse Pulse Resp BP BP Pulse Ox 09/05/19 08:00 57 L 09/05/19 07:26 36.8 C 60 20 181/65 H 187/67 H 94 09/05/19 04:24 36.8 C 58 L 16 174/69 H 95 09/05/19 01:48 64 09/04/19 23:34 37 C 62 18 163/62 H 95 PG Care Time/CCT Total # of Minutes Spent Total Time Spent with Patient: Total time spent is greater than 50% in coordination of care (as documented) at patient's floor/unit and/or counseling patient:
--- NOTE | 2019-09-05 12:05 | Progress Note ---
DATE: 09/05/2019 GASTROENTEROLOGY PROGRESS NOTE I was able to review the patient's CT scan and it did not show any sinister gastrointestinal pathology. Her white blood cell count continues to rise and it is currently 13. There is no GI source seen on imaging. I do not think endoscopy would be helpful diagnostically at this point in time. I recommend the primary team continue to look for sources for infection. As far as need for gall bladder removal, I defer to surgery. Continue to follow liver enzymes. MTDD
[2019-09-05] MEDS: MEGESTROL ACETATE 40 MG TAB PO SCH (12:48)
[2019-09-05] MEDS ORDERED: TPN/PPN CONSULT PHARMACY PRN (13:41)
[2019-09-05] MEDS ORDERED: DEXTROSE 10% 1,000 ML IV SCH (13:45)
[2019-09-05 13:52] LABS: Phosphorus 3.8 mg/dl (2.5-4.9)
[2019-09-05] MEDS ORDERED: PERIPHERAL PN IV SCH (16:00)
[2019-09-05] MEDS ORDERED: TPN IV SCH (16:00)
--- NOTE | 2019-09-05 17:00 | Hospitalist Progress Note ---
Date of Service September 05, 2019 Assessment & Plan (1) Nausea and vomiting: Presented with Anorexia, nausea, and vomiting after colon resection for colon cancer. H/O Caroli's disease --CT ABD:No abscess. No bowel obstruction. Mild left abdominal infiltration which is likely postsurgical. Pneumobilia. A few locules of gas within the gallbladder which is likely related. Minimal gallbladder distention without pericholecystic infiltration. 2.4 x 1.6 cm subcapsular segment 8 hypodensity. In part, this could reflect ductal dilatation. This is suboptimally assessed on this unenhanced exam and comparison with prior imaging studies, if available, is recommended. If no priors, a nonemergent MRI of the liver is recommended. Marked left renal atrophy. No hydronephrosis. --Gall Bladder USD:Stone versus sludge ball within the gallbladder. Mild gallbladder distention. No sonographic Sierra sign. No evidence for acute cholecystitis by sonography. Pneumobilia. No biliary dilatation. --HIDA Scan:Nonvisualization of the gallbladder at 60 minutes. There is delayed visualization of the gallbladder following morphine administration. This indicates patency of the cystic duct, and could indicate biliary dysfunction/chronic cholecystitis. Clinical correlation will be required. --Normal Recent EGD --Blood Cx: No growth to date --Continue IV zosyn for now --Received IV Fluids --Appreciate GI, Surgery Input --Planned for gastric emptying study on Sunday --If gastric emptying study negative, will likely need cholecystectomy --Clear liquid diet as tolerated --Started on parenteral nutrition due to poor oral intake --Plavix held for now Persistent leukocytosis Blood, urine cultures negative Chest x-ray:No acute process. Unclear source of infection Consider ID evaluation if needed (2) Acute kidney injury superimposed on CKD: EDYTA on CKD IV Likely due to dehydration from poor oral intake Baseline Cr: 1.8 -2.0 Hold Losartan for now Received IV fluids Appreciate Nephrology Input Monitor renal function Avoid Nephrotoxic agents as able (3) Hypertension: Continue hydralazine increased to 75 mg TID Losartan on hold due to EDYTA Continue amlodipine 10 mg daily, metoprolol 100 mg BID Nephrology on board (4) GERD (gastroesophageal reflux disease): Continue Pepcid (5) Lupus: Stable (6) DVT prophylaxis: SQ heparin (7) Discharge planning issues: Expect to discharge home when medically stable PT/OT prior to discharge Primary care follow-up with Dr. Beasley. GI follow-up with [facility]. Subjective Patient is seen and examined at bedside Persistent nausea, poor oral intake No vomiting today Denies any abdominal pain Also denies chest pain, shortness of breath, dizziness Persistent leukocytosis Review of Systems Review of Systems: All systems reviewed & are unremarkable except as noted in HPI & below Physical Exam Physical Exam: Physical Exam: Vitals signs as noted above General Appearance:Moderately built and nourished, no apparent distress Head: normocephalic, Atraumatic Eyes: normal inspection, EOMI Neck: supple, Trachea midline Respiratory/Chest: Normal breath sounds, CTA Cardiovascular: S1, S2, +systolic murmur Abdomen/GI:Soft, Non tender, Bowel sounds present Extremities/Musculoskelatal:normal inspection, no edema Neurologic/Psych:AAOX3, grossly no focal neurological deficits Skin: normal color, warm Results & Data Vital Signs (Past 12 Hours) Vital Signs Temp Pulse Pulse Resp BP BP Pulse Ox 09/05/19 15:33 36.9 C 61 16 189/64 H 95 09/05/19 11:00 36.9 C 56 L 16 176/67 H 95 09/05/19 08:00 57 L 09/05/19 07:26 36.8 C 60 20 181/65 H 187/67 H 94 Laboratory Results Short CBC 09/05/19 Range/Units 07:19 WBC 13.40 H (4.8-10.8) K/uL Hgb 9.2 L (12.0-16.0) g/dL Hct 28.4 L (37-47) % Plt Count 371 (130-400) K/uL BMP 09/05/19 07:19 Sodium 136 Potassium 3.5 Chloride 105 Carbon Dioxide 23 BUN 12 Creatinine 2.21 H Glucose 95 Calcium 8.9 (1) Hypertension Hypertension type: essential hypertension Qualified Code(s): I10 - Essential (primary) hypertension
--- NOTE | 2019-09-05 17:25 | Nephrology Progress Note ---
Date of Service September 05, 2019 Assessment & Plan (1) Hypertension: bp remains uncontrolled w/ 160-180s systolic -changed hydralazine to 10 mg IV q6 -cont CCB 10 daily, cont bb -will start enaliprilat 0.625 mg IV standing and start doxazosin 1 mg daily and titrate upward -daily bmp -cont prn hydralazine dose for sbp > 160 >>> 10 mg iv q4h ->>>>primary service to ensure pain/anxiety are controlled -agree w/ PT evaluation > use usual caution given HTN and bp meds Present on Admission?: Yes (2) CKD (chronic kidney disease), stage IV: today a bit above baseline of 1.8-2.0; presenting creatinine 2.6 on 08/30 and peak creatinine same. mejia 1.9 on 09/01; plateau past 4 days at 2.1-2.2. poor po intake/N ongoing; HIDA surgical eval c/w chronic cholecystitis - lap starla deferred but still under consideration. also w/ ongoing uncontrolled HTN -daily bmp -cautiously resume ARB as above -BP control as above -nsaid and other nephrotoxin avoidance to continue -agree w/ trial of parenteral nutrition Present on Admission?: Yes Subjective seen on rounds this am; N a bit better but still present; pt to start parenteral nutrition; will be followed on weekend and reconsider starla early next week possibly; denies voiding concerns, sob; has hardly been out of bed; no edema Review of Systems Review of Systems: All systems reviewed & are unremarkable except as noted in HPI & below Physical Exam Constitutional: well developed, well nourished and + ill appearing; no acute distress (on RA; less N today) Eyes: EOM intact bilaterally ENMT: Ears: no external ear abnormality Nose: no external nose abnormality Mouth: + dry oral mucous membranes Neck: no nuchal rigidity Respiratory: normal respiratory effort; no respiratory distress Auscultation: lungs clear to auscultation bilaterally and + diminished lung sounds Cardiovascular: Rate/Rhythm: regular rate and regular rhythm (at about 60 bpm) Extremities: no edema Gastrointestinal (Abdomen): Inspection/Auscultation: normal bowel sounds (o rperhaps slgithly diminished) Percussion/Palpation: abdomen soft; abdomen nontender Musculoskeletal: Extremities: strength 5/5 throughout Skin: no rashes, warm and dry Neurologic: hammond, fluent speech, no tremor Psychiatric: A+Ox3, euthymic affect Orientation: alert and oriented x 3 Speech: normal rate/rhythm/volume of speech Affect: + anxious affect Results & Data Vital Signs (Past 12 Hours) Vital Signs Temp Pulse Pulse Resp BP BP Pulse Ox 09/05/19 15:33 36.9 C 61 16 189/64 H 95 09/05/19 11:00 36.9 C 56 L 16 176/67 H 95 09/05/19 08:00 57 L 09/05/19 07:26 36.8 C 60 20 181/65 H 187/67 H 94 (1) Hypertension Hypertension type: essential hypertension Qualified Code(s): I10 - Essential (primary) hypertension
[2019-09-05] MEDS ORDERED: LOSARTAN POTASSIUM 25 MG TAB PO SCH (17:45)
[2019-09-05] MEDS: HydrALAZINE HCL 20 MG/ML VIAL IV SCH (18:26)
[2019-09-05] MEDS: ENALAPRILAT 0.625 MG in SYRINGE 9.5 ML IV SCH (18:26)
[2019-09-05] MEDS: ASPIRIN 81 MG ECTAB PO SCH (20:31)
[2019-09-05] MEDS: DOXAZOSIN MESYLATE 1 MG TAB PO SCH (20:31)
[2019-09-05] MEDS: ALPRAZolam 0.5 MG TABLET PO SCH (21:34)
[2019-09-06] MEDS: METOCLOPRAMIDE HCL 10 MG TABLET PO SCH ×5 (00:11→23:21)
[2019-09-06] MEDS: PIPERACILLIN/TAZOBACTAM 3.375 GM in DEXTROSE 5% 100 ML IV SCH ×3 (00:11→16:55)
[2019-09-06] MEDS: HydrALAZINE HCL 20 MG/ML VIAL IV SCH ×5 (00:37→23:22)
[2019-09-06] MEDS: ENALAPRILAT 0.625 MG in SYRINGE 9.5 ML IV SCH ×3 (00:38→12:00)
[2019-09-06] MEDS: HEPARIN SOD 5,000 UNIT/0.5 ML VIAL SQ SCH ×3 (06:15→20:19)
[2019-09-06 06:44] LABS: Basophils # (auto) 0.03 K/uL (0-0.2); Basophils % (auto) 0.3 %; Eosinophils # (auto) 0.31 K/uL (0-0.5); Eosinophils % (auto) 2.6 %; Hematocrit (blood only) 26.6 % (37-47); Hemoglobin 8.6 g/dL (12.0-16.0); Immature Granulocytes # (auto) 0.13 K/uL (0.00-0.02); Immature Granulocytes % (auto) 1.1 %; Lymphocytes % (auto) 24.7 %; Mean Corpuscular Hemoglobin 27.7 pg (25-34); Mean Corpuscular Hgb Conc 32.3 g/dL (32-36); Mean Corpuscular Volume 85.5 fL (80-100); Mean Platelet Volume 9.3 fL (7.4-10.4); Monocytes # (auto) 2.35 K/uL (0.11-0.59); Neutrophils # (auto) 6.04 K/uL (1.4-6.5); Neutrophils % (auto) 51.3 %; Platelet Count 299 K/uL (130-400); RDW Coefficient of Variation 16.6 % (11.5-14.5); Red Blood Count 3.11 M/uL (4.2-5.4); White Blood Count 11.76 K/uL (4.8-10.8)
[2019-09-06 07:23] LABS: BUN Creatinine Ratio 9.7 (10-20); Calcium 7.6 mg/dl (8.5-10.1); Creatinine Clr Calc Pharmacy 17.8 ml/min; Est GFR (African American) 19.6; Est GFR (Non-African American) 16.9; Magnesium 1.8 mg/dl (1.8-2.4); Phosphorus 4.5 mg/dl (2.5-4.9); Potassium 3.5 mmol/L (3.5-5.1)
[2019-09-06] MEDS ORDERED: NSS + 20MEQ KCL 20 MEQ/1,000 ML BAG IV ONE (07:48)
[2019-09-06] MEDS: SERTRALINE HCL 50 MG TABLET PO SCH (08:58)
[2019-09-06] MEDS: MEGESTROL ACETATE 40 MG TAB PO SCH (08:59)
[2019-09-06] MEDS: CYANOCOBALAMIN 500 MCG TABLET (VITAMIN B-12) PO SCH (08:59)
[2019-09-06] MEDS: FAMOTIDINE 20 MG TAB PO SCH ×2 (08:59→20:17)
[2019-09-06] MEDS: AMLODIPINE BESYLATE 5 MG TAB PO SCH (08:59)
[2019-09-06] MEDS: METOPROLOL TARTRATE 100 MG TAB PO SCH ×2 (08:59→20:18)
--- NOTE | 2019-09-06 09:41 | Surgery Progress Note ---
Date of Service September 06, 2019 Assessment & Plan (1) Nausea and vomiting: gastric emptying on Sunday still with poor PO diet as tolerated (2) Gallstones: possible lap starla next week if other studies normal or symptoms persist Subjective still with poor appetite nausea stable gastric emptying on Sunday likely GB etiology Review of Systems Constitutional: no fever and no chills Respiratory: no cough and no dyspnea Cardiovascular: no chest pain Gastrointestinal: + nausea; no abdominal pain and no vomiting anorexia Genitourinary: no dysuria Musculoskeletal: no back pain Physical Exam Constitutional: well developed and well nourished Neck: trachea midline Respiratory: normal respiratory effort, lungs clear to auscultation Cardiovascular: RRR, no murmur, no edema Gastrointestinal (Abdomen): Inspection/Auscultation: abdomen normal to inspection, + abdomen distended and normal bowel sounds Percussion/Palpation: abdomen nontender Musculoskeletal: Head/Neck/Chest: normocephalic and head atraumatic Skin: no rashes, warm and dry Results & Data Vital Signs (Past 12 Hours) Vital Signs Temp Pulse Pulse Pulse Resp BP BP 09/06/19 08:00 62 09/06/19 06:30 36.9 C 60 19 133/60 09/06/19 06:09 140/55 L 09/06/19 03:51 37.0 C 55 L 18 131/63 09/06/19 00:21 60 139/57 L 09/05/19 23:39 37.0 C 59 L 17 120/63 09/05/19 23:02 56 L Pulse Ox 09/06/19 08:00 09/06/19 06:30 95 09/06/19 06:09 09/06/19 03:51 97 09/06/19 00:21 09/05/19 23:39 96 09/05/19 23:02
--- NOTE | 2019-09-06 13:03 | Nephrology Progress Note ---
Date of Service September 06, 2019 Assessment & Plan (1) Hypertension: bp control improved > ? if was not absorbing po meds -changed hydralazine to 10 mg IV q6 -cont CCB 10 daily, cont bb -hold ACEI -cont doxazosin 1 mg daily and titrate upward -daily bmp -cont prn hydralazine dose for sbp > 160 >>> 10 mg iv q4h ->>>>primary service to ensure pain/anxiety are controlled -agree w/ PT evaluation > use usual caution given HTN and bp meds (2) Acute kidney injury superimposed on CKD: New EDYTA on CKD; baseline of 1.8-2.0; presenting creatinine 2.6 on 08/30 and peak creatinine same. mejia 1.9 on 09/01; plateau past 4 days at 2.1-2.2>> up to 2.7 today. poor po intake/N improving; HIDA surgical eval c/w chronic cholecystitis - lap starla deferred but still under consideration. also w/ only recently controlled after long stretch of uncontrolled HTN -daily bmp -minimize enaliprilat - hold for now -BP control as above -nsaid and other nephrotoxin avoidance to continue -agree w/ trial of parenteral nutrition Present on Admission?: Yes Subjective less N; no abd painn/v; TPN hanging. no sob. no coppola Review of Systems Review of Systems: All systems reviewed & are unremarkable except as noted in HPI & below Physical Exam Constitutional: well developed and well nourished; no acute distress (on RA) Eyes: EOM intact bilaterally ENMT: Ears: no external ear abnormality Nose: no external nose abnormality Mouth: + dry oral mucous membranes Neck: no nuchal rigidity Respiratory: normal respiratory effort; no respiratory distress Auscultation: lungs clear to auscultation bilaterally and + diminished lung sounds Cardiovascular: Rate/Rhythm: regular rhythm (at about 60 bpm) and + bradycardic Extremities: no edema Gastrointestinal (Abdomen): Inspection/Auscultation: normal bowel sounds (o rperhaps slgithly diminished) Percussion/Palpation: abdomen soft; abdomen nontender Musculoskeletal: Extremities: strength 5/5 throughout Skin: no rashes, warm and dry Neurologic: hammond, fluent speech, no tremor Psychiatric: A+Ox3, euthymic affect Orientation: alert and oriented x 3 Speech: normal rate/rhythm/volume of speech Affect: + anxious affect Results & Data Vital Signs (Past 12 Hours) Vital Signs Temp Pulse Pulse Resp BP Pulse Ox 09/06/19 11:11 36.7 C 55 L 20 136/58 L 96 09/06/19 08:00 62 09/06/19 06:30 36.9 C 60 19 133/60 95 09/06/19 06:09 140/55 L 09/06/19 03:51 37.0 C 55 L 18 131/63 97 Laboratory Results 09/06/19 06:20 09/06/19 06:20 (1) Hypertension Hypertension type: essential hypertension Qualified Code(s): I10 - Essential (primary) hypertension
[2019-09-06] MEDS ORDERED: PERIPHERAL PN IV SCH (16:00)
[2019-09-06] MEDS ORDERED: TPN IV SCH (16:00)
--- NOTE | 2019-09-06 16:21 | Hospitalist Progress Note ---
Date of Service September 06, 2019 Assessment & Plan (1) Nausea and vomiting: Presented with Anorexia, nausea, and vomiting after colon resection for colon cancer. H/O Caroli's disease --CT ABD:No abscess. No bowel obstruction. Mild left abdominal infiltration which is likely postsurgical. Pneumobilia. A few locules of gas within the gallbladder which is likely related. Minimal gallbladder distention without pericholecystic infiltration. 2.4 x 1.6 cm subcapsular segment 8 hypodensity. In part, this could reflect ductal dilatation. This is suboptimally assessed on this unenhanced exam and comparison with prior imaging studies, if available, is recommended. If no priors, a nonemergent MRI of the liver is recommended. Marked left renal atrophy. No hydronephrosis. --Gall Bladder USD:Stone versus sludge ball within the gallbladder. Mild gallbladder distention. No sonographic Sierra sign. No evidence for acute cholecystitis by sonography. Pneumobilia. No biliary dilatation. --HIDA Scan:Nonvisualization of the gallbladder at 60 minutes. There is delayed visualization of the gallbladder following morphine administration. This indicates patency of the cystic duct, and could indicate biliary dysfunction/chronic cholecystitis. Clinical correlation will be required. --Normal Recent EGD --Blood Cx: No growth to date --Continue IV zosyn for now --Received IV Fluids --Appreciate GI, Surgery Input --Planned for gastric emptying study on Sunday --If gastric emptying study negative, will likely need cholecystectomy --Clear liquid diet as tolerated --Continue parenteral nutrition due to poor oral intake --Plavix held for now --Clinically no improvement Persistent leukocytosis Blood, urine cultures negative Chest x-ray:No acute process. Unclear source of infection Consider ID evaluation if needed Monocytosis noted on differential We will check peripheral smear (2) Acute kidney injury superimposed on CKD: EDYTA on CKD IV Likely due to dehydration from poor oral intake Baseline Cr: 1.8 -2.0 Hold Losartan for now Appreciate Nephrology Input Monitor renal function Avoid Nephrotoxic agents as able Gentle IV fluids PRN along with parenteral nutrition (3) Hypertension: Continue IV hydralazine, Doxazosin Losartan on hold due to EDYTA Continue amlodipine 10 mg daily, metoprolol 100 mg BID Appreciate Nephrology Input IV Vasotec held for now due to EDYTA (4) GERD (gastroesophageal reflux disease): Continue Pepcid (5) Lupus: Stable (6) DVT prophylaxis: SQ heparin (7) Discharge planning issues: Expect to discharge home when medically stable PT/OT prior to discharge Primary care follow-up with Dr. Beasley. [facility] follow-up [facility]. Subjective Patient is seen and examined at bedside No significant change clinically from yesterday On parenteral nutrition Continues to have poor appetite No significant nausea today Denies vomiting, abdominal pain, chest pain, shortness of breath, dizziness Review of Systems Review of Systems: All systems reviewed & are unremarkable except as noted in HPI & below Physical Exam Physical Exam: Physical Exam: Vitals signs as noted above General Appearance:Moderately built and nourished, no apparent distress Head: normocephalic, Atraumatic Eyes: normal inspection, EOMI Neck: supple, Trachea midline Respiratory/Chest: Normal breath sounds, CTA Cardiovascular: S1, S2, +systolic murmur Abdomen/GI:Soft, Non tender, Bowel sounds present Extremities/Musculoskelatal:normal inspection, no edema Neurologic/Psych:AAOX3, grossly no focal neurological deficits Skin: normal color, warm Results & Data Vital Signs (Past 12 Hours) Vital Signs Temp Pulse Pulse Resp BP BP Pulse Ox 09/06/19 15:36 36.4 C L 58 L 19 156/68 H 96 09/06/19 11:11 36.7 C 55 L 20 136/58 L 96 09/06/19 08:00 62 09/06/19 06:30 36.9 C 60 19 133/60 95 09/06/19 06:09 140/55 L Laboratory Results Short CBC 09/06/19 Range/Units 06:20 WBC 11.76 H (4.8-10.8) K/uL Hgb 8.6 L (12.0-16.0) g/dL Hct 26.6 L (37-47) % Plt Count 299 (130-400) K/uL BMP 09/06/19 06:20 Sodium 132 L Potassium 3.5 Chloride 101 Carbon Dioxide 23 BUN 26 H D Creatinine 2.66 H D Glucose 118 H Calcium 7.6 L (1) Hypertension Hypertension type: essential hypertension Qualified Code(s): I10 - Essential (primary) hypertension
[2019-09-06] MEDS: DOXAZOSIN MESYLATE 1 MG TAB PO SCH (20:15)
[2019-09-06] MEDS: ASPIRIN 81 MG ECTAB PO SCH (20:16)
[2019-09-06] MEDS: ALPRAZolam 0.5 MG TABLET PO SCH (20:23)
[2019-09-07] MEDS: PIPERACILLIN/TAZOBACTAM 3.375 GM in DEXTROSE 5% 100 ML IV SCH ×3 (01:11→20:24)
[2019-09-07] MEDS: METOCLOPRAMIDE HCL 10 MG TABLET PO SCH ×4 (06:07→23:35)
[2019-09-07] MEDS: HEPARIN SOD 5,000 UNIT/0.5 ML VIAL SQ SCH ×3 (06:07→20:17)
[2019-09-07] MEDS: HydrALAZINE HCL 20 MG/ML VIAL IV SCH ×4 (06:07→23:36)
[2019-09-07 06:39] LABS: Basophils # (auto) 0.02 K/uL (0-0.2); Basophils % (auto) 0.2 %; Eosinophils # (auto) 0.29 K/uL (0-0.5); Eosinophils % (auto) 2.5 %; Hematocrit (blood only) 28.9 % (37-47); Hemoglobin 9.3 g/dL (12.0-16.0); Immature Granulocytes # (auto) 0.14 K/uL (0.00-0.02); Immature Granulocytes % (auto) 1.2 %; Lymphocytes # (auto) 3.01 K/uL (1.2-3.4); Mean Corpuscular Hemoglobin 27.5 pg (25-34); Mean Corpuscular Hgb Conc 32.2 g/dL (32-36); Mean Corpuscular Volume 85.5 fL (80-100); Mean Platelet Volume 9.7 fL (7.4-10.4); Monocytes # (auto) 1.96 K/uL (0.11-0.59); Monocytes % (auto) 16.9 %; Neutrophils # (auto) 6.17 K/uL (1.4-6.5); Neutrophils % (auto) 53.2 %; Platelet Count 338 K/uL (130-400); RDW Coefficient of Variation 16.7 % (11.5-14.5); RDW Standard Deviation 51.5 fL (36.4-46.3); Red Blood Count 3.38 M/uL (4.2-5.4); White Blood Count 11.59 K/uL (4.8-10.8)
[2019-09-07 07:07] LABS: BUN Creatinine Ratio 14.3 (10-20); Calcium 8.4 mg/dl (8.5-10.1); Creatinine Clr Calc Pharmacy 17.3 ml/min; Est GFR (African American) 18.9; Est GFR (Non-African American) 16.3
[2019-09-07 07:13] LABS: Phosphorus 3.8 mg/dl (2.5-4.9)
[2019-09-07] MEDS ORDERED: TPN IV SCH ×2 (08:30→16:00)
[2019-09-07] MEDS ORDERED: PERIPHERAL PN IV SCH ×2 (08:30→16:00)
[2019-09-07] MEDS: CYANOCOBALAMIN 500 MCG TABLET (VITAMIN B-12) PO SCH (08:47)
[2019-09-07] MEDS: FAMOTIDINE 20 MG TAB PO SCH ×2 (08:47→20:14)
[2019-09-07] MEDS: MEGESTROL ACETATE 40 MG TAB PO SCH (08:47)
[2019-09-07] MEDS: METOPROLOL TARTRATE 100 MG TAB PO SCH ×2 (08:47→20:15)
[2019-09-07] MEDS: AMLODIPINE BESYLATE 5 MG TAB PO SCH (08:47)
[2019-09-07] MEDS: SERTRALINE HCL 50 MG TABLET PO SCH (08:48)
--- NOTE | 2019-09-07 11:18 | Hospitalist Progress Note ---
Date of Service September 07, 2019 Assessment & Plan (1) Nausea and vomiting: Presented with Anorexia, nausea, and vomiting after colon resection for colon cancer. H/O Caroli's disease --CT ABD:No abscess. No bowel obstruction. Mild left abdominal infiltration which is likely postsurgical. Pneumobilia. A few locules of gas within the gallbladder which is likely related. Minimal gallbladder distention without pericholecystic infiltration. 2.4 x 1.6 cm subcapsular segment 8 hypodensity. In part, this could reflect ductal dilatation. This is suboptimally assessed on this unenhanced exam and comparison with prior imaging studies, if available, is recommended. If no priors, a nonemergent MRI of the liver is recommended. Marked left renal atrophy. No hydronephrosis. --Gall Bladder USD:Stone versus sludge ball within the gallbladder. Mild gallbladder distention. No sonographic Sierra sign. No evidence for acute cholecystitis by sonography. Pneumobilia. No biliary dilatation. --HIDA Scan:Nonvisualization of the gallbladder at 60 minutes. There is delayed visualization of the gallbladder following morphine administration. This indicates patency of the cystic duct, and could indicate biliary dysfunction/chronic cholecystitis. Clinical correlation will be required. --Normal Recent EGD --Blood Cx: No growth to date --Continue IV zosyn for now --Received IV Fluids --Appreciate GI, Surgery Input --Advance diet as tolerated --Continue parenteral nutrition due to poor oral intake --Plavix held for now --Planned for gastric emptying study tomorrow --If gastric emptying study negative, will likely need cholecystectomy --Continue to monitor Persistent leukocytosis Blood, urine cultures negative Chest x-ray:No acute process. 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 Likely due to dehydration from poor oral intake Baseline Cr: 1.8 -2.0 Cr: 2.7 today Hold Losartan for now Appreciate Nephrology Input Monitor renal function Avoid Nephrotoxic agents as able Receiving 2.3 L through parenteral nutrition (3) Hypertension: Continue IV hydralazine, Doxazosin Losartan on hold due to EDYTA Continue amlodipine 10 mg daily, metoprolol 100 mg BID Appreciate Nephrology Input IV Vasotec held for now due to EDYTA (4) GERD (gastroesophageal reflux disease): Continue Pepcid (5) Lupus: Stable (6) DVT prophylaxis: SQ heparin (7) Discharge planning issues: Expect to discharge home when medically stable PT/OT prior to discharge Primary care follow-up with Dr. Beasley. GI follow-up with [facility]. Subjective Patient is seen and examined at bedside Tolerated breakfast this morning Still has very poor appetite Plan to continue parenteral nutrition Denies vomiting, abdominal pain, chest pain, shortness of breath, dizziness Gastric emptying study tomorrow Review of Systems Review of Systems: All systems reviewed & are unremarkable except as noted in HPI & below Physical Exam Physical Exam: Physical Exam: Vitals signs as noted above General Appearance:Moderately built and nourished, no apparent distress Head: normocephalic, Atraumatic Eyes: normal inspection, EOMI Neck: supple, Trachea midline Respiratory/Chest: Normal breath sounds, CTA Cardiovascular: S1, S2, +systolic murmur Abdomen/GI:Soft, Non tender, Bowel sounds present Extremities/Musculoskelatal:normal inspection, no edema Neurologic/Psych:AAOX3, grossly no focal neurological deficits Skin: normal color, warm Results & Data Vital Signs (Past 12 Hours) Vital Signs Temp Pulse Pulse Resp BP Pulse Ox 09/07/19 07:34 63 09/07/19 06:05 36.9 C 66 18 166/65 H 97 09/07/19 03:30 37.3 C 66 19 154/57 H 96 09/07/19 01:20 60 Laboratory Results Short CBC 09/07/19 Range/Units 06:19 WBC 11.59 H (4.8-10.8) K/uL Hgb 9.3 L (12.0-16.0) g/dL Hct 28.9 L (37-47) % Plt Count 338 (130-400) K/uL BMP 09/07/19 06:19 Sodium 130 L Potassium 4.0 Chloride 100 Carbon Dioxide 25 BUN 39 H Creatinine 2.74 H Glucose 122 H Calcium 8.4 L (1) Hypertension Hypertension type: essential hypertension Qualified Code(s): I10 - Essential (primary) hypertension
--- NOTE | 2019-09-07 11:44 | Nephrology Progress Note ---
Date of Service September 07, 2019 Assessment & Plan (1) Hypertension: bp control improved > ? if was not absorbing po meds -cont hydralazine 10 mg IV q6 -cont CCB 10 daily, cont bb -hold ACEI for now -cont doxazosin 1 mg daily and titrate upward -daily bmp -cont prn hydralazine dose for sbp > 160 >>> 10 mg iv q4h ->>>>primary service to ensure pain/anxiety are controlled -agree w/ PT evaluation > use usual caution given HTN and bp meds (2) Acute kidney injury superimposed on CKD: New EDYTA on CKD; baseline of 1.8-2.0; presenting creatinine 2.6 on 08/30 and peak creatinine same. mejia 1.9 on 09/01; plateau past 4 days at 2.1-2.2>> plateau'd at 2.7 today. poor po intake/N improving; HIDA surgical eval c/w chronic cholecystitis - lap starla deferred but still under consideration. also w/ only recently controlled after long stretch of uncontrolled HTN -daily bmp -minimize enaliprilat - hold for now -BP control as above -nsaid and other nephrotoxin avoidance to continue -agree w/ trial of parenteral nutrition Subjective feeling a bit better today; no N/V (as long as she tries no PO), not sob, no coppola, no voidign concerns still quite fatigued Review of Systems Review of Systems: All systems reviewed & are unremarkable except as noted in HPI & below Physical Exam 2 Constitutional: well developed and well nourished; no acute distress (on RA, dosing in bed) Eyes: EOM intact bilaterally ENMT: Ears: no external ear abnormality Nose: no external nose abnormality Mouth: + dry oral mucous membranes Neck: no nuchal rigidity Respiratory: normal respiratory effort; no respiratory distress Auscultation: lungs clear to auscultation bilaterally and + diminished lung sounds Cardiovascular: Rate/Rhythm: regular rate and regular rhythm (at about 60 bpm) Extremities: no edema Gastrointestinal (Abdomen): Inspection/Auscultation: normal bowel sounds (o rperhaps slgithly diminished) Percussion/Palpation: abdomen soft; abdomen nontender Musculoskeletal: Extremities: strength 5/5 throughout Skin: no rashes, warm and dry Neurologic: hammond, fluent speech, good insight Psychiatric: A+Ox3, euthymic affect Orientation: alert and oriented x 3 Speech: normal rate/rhythm/volume of speech Affect: + anxious affect Results & Data Vital Signs (Past 12 Hours) Vital Signs Temp Pulse Pulse Resp BP Pulse Ox 09/07/19 11:18 37.1 C 62 20 171/64 H 96 09/07/19 07:34 63 09/07/19 06:05 36.9 C 66 18 166/65 H 97 09/07/19 03:30 37.3 C 66 19 154/57 H 96 09/07/19 01:20 60 (1) Hypertension Hypertension type: essential hypertension Qualified Code(s): I10 - Essential (primary) hypertension
--- NOTE | 2019-09-07 13:51 | Surgery Progress Note ---
Date of Service September 07, 2019 Assessment & Plan (1) Gallstones: Gastric Emptying in AM Gallstones may need lap satrla if study normal and symptoms continue Subjective feels better vtoday taking po alittle better Gastric Emptying in AM Review of Systems Constitutional: no fever and no chills Respiratory: no dyspnea Cardiovascular: no chest pain Gastrointestinal: no abdominal pain, no nausea and no vomiting Genitourinary: no dysuria Musculoskeletal: no back pain Physical Exam Constitutional: well developed and well nourished Neck: trachea midline Respiratory: normal respiratory effort, lungs clear to auscultation Cardiovascular: RRR, no murmur, no edema Gastrointestinal (Abdomen): Inspection/Auscultation: abdomen normal to inspection and normal bowel sounds; abdomen not distended Percussion/Palpation: abdomen nontender and no guarding Musculoskeletal: Head/Neck/Chest: normocephalic and head atraumatic Skin: no rashes, warm and dry Results & Data Vital Signs (Past 12 Hours) Vital Signs Temp Pulse Pulse Resp BP Pulse Ox 09/07/19 11:18 37.1 C 62 20 171/64 H 96 09/07/19 07:34 63 09/07/19 06:05 36.9 C 66 18 166/65 H 97 09/07/19 03:30 37.3 C 66 19 154/57 H 96
[2019-09-07] MEDS: HydrALAZINE HCL 20 MG/ML VIAL IV PRN (14:45)
[2019-09-07] MEDS: ALPRAZolam 0.5 MG TABLET PO SCH (20:14)
[2019-09-07] MEDS: ASPIRIN 81 MG ECTAB PO SCH (20:14)
[2019-09-07] MEDS: DOXAZOSIN MESYLATE 1 MG TAB PO SCH (20:14)
[2019-09-08] MEDS: HydrALAZINE HCL 20 MG/ML VIAL IV PRN ×2 (04:18→07:54)
[2019-09-08] MEDS: HEPARIN SOD 5,000 UNIT/0.5 ML VIAL SQ SCH ×3 (05:43→21:38)
[2019-09-08] MEDS: HydrALAZINE HCL 20 MG/ML VIAL IV SCH ×5 (05:44→21:38)
[2019-09-08] MEDS: METOCLOPRAMIDE HCL 10 MG TABLET PO SCH ×4 (05:47→23:34)
[2019-09-08 08:04] LABS: BUN Creatinine Ratio 16.9 (10-20); Calcium 8.5 mg/dl (8.5-10.1); Creatinine Clr Calc Pharmacy 18.8 ml/min; Est GFR (Non-African American) 18.1; Magnesium 2.6 mg/dl (1.8-2.4); Potassium 3.8 mmol/L (3.5-5.1)
[2019-09-08 08:05] LABS: Phosphorus 3.5 mg/dl (2.5-4.9)
--- NOTE | 2019-09-08 08:35 | Nuclear Medicine Report ---
NM gastric emptying study CLINICAL HISTORY: 73 years-old Female presenting with N/V, anorexia. TECHNIQUE: The patient was orally administered 1 mCi of technetium 99m sulfur colloid in egg sandwich and 8 ounces of water. No static abdominal images were obtained due to patient vomiting. Therefore, normally acquired anterior and posterior images at 0 minutes, 1 hour, 2 hour, and 4 hour time interva ls were not obtained. Gastric emptying could not be calculated. COMPARISON: CT of abdomen and pelvis from 09/04/2019 and HIDA scan from 09/02/2019. FINDINGS: No images were acquired as the patient promptly vomited the administered radiotracer. IMPRESSION: 1. The patient should be credited for this examination and no charge should be incurred. 2. Please see previously dictated HIDA scan from 09/02/2019 as a presence of chronic cholecystitis m ost likely accounts for the patient's symptomatology. The report will be called/faxed according to standard departmental protocol. ACT 112: Negative or not required by law. Electronically signed by: Alex Ibarra M.D. 09/08/2019 8:33 AM
--- NOTE | 2019-09-08 09:35 | Surgery Progress Note ---
Date of Service September 08, 2019 Assessment & Plan (1) Nausea and vomitin09/08/19 Patient unable to complete gastric emptying study due to emesis She does not seem to be making much progress with PO intake On TPN for now At this point we will decide to take patient to the OR tomorrow for a laparoscopic cholecystectomy to see if this resolves her symptoms with Dr. Madsen Continue to hold plavix Okay for liquids as tolerates today and will make patient NPO at midnight as above. ? etiology. will plan lap starla and hopefully this will help her symptoms. I'm not sure what else to offer her. Subjective Patient states she feels overall the same as when she came in. Nauseated when she tries to eat/drink anything. Says she mostly stuck with liquids this wknd as well as had a piece of baked potato without vomiting. She is passing gas and BMs. She denies abdominal pain. This AM she was scheduled for a gastric emptying study, but due to emesis the study was unable to be completed (she had 2 bites of toast and eggs and vomited it back up). Physical Exam Physical Exam: awake/alert/sitting up in chair Results & Data Vital Signs (Past 12 Hours) Vital Signs Temp Pulse Pulse Pulse Resp BP BP 09/08/19 07:01 37.0 C 72 20 179/65 H 09/08/19 04:05 36.8 C 70 18 181/52 H 09/08/19 03:39 67 09/07/19 23:35 156/70 H 09/07/19 22:36 37.2 C 67 18 153/62 H Pulse Ox 09/08/19 07:01 96 09/08/19 04:05 97 09/08/19 03:39 09/07/19 23:35 09/07/19 22:36 96 PG Care Time/CCT Total # of Minutes Spent Total Time Spent with Patient: Total time spent is greater than 50% in coordination of care (as documented) at patient's floor/unit and/or counseling patient:
[2019-09-08] MEDS: CYANOCOBALAMIN 500 MCG TABLET (VITAMIN B-12) PO SCH (09:36)
[2019-09-08] MEDS: MEGESTROL ACETATE 40 MG TAB PO SCH (09:36)
[2019-09-08] MEDS: AMLODIPINE BESYLATE 5 MG TAB PO SCH (09:36)
[2019-09-08] MEDS: METOPROLOL TARTRATE 100 MG TAB PO SCH ×2 (09:36→20:14)
[2019-09-08] MEDS: FAMOTIDINE 20 MG TAB PO SCH ×2 (09:36→20:13)
[2019-09-08] MEDS: SERTRALINE HCL 50 MG TABLET PO SCH (09:36)
[2019-09-08] MEDS: PIPERACILLIN/TAZOBACTAM 3.375 GM in DEXTROSE 5% 100 ML IV SCH ×2 (09:37→20:16)
--- NOTE | 2019-09-08 11:15 | Nephrology Progress Note ---
Date of Service September 08, 2019 Assessment & Plan (1) Hypertension: bp control improved > ? if was not absorbing po meds; would not change bp medication regimen today -cont hydralazine 10 mg IV q6 -cont CCB 10 daily, cont bb -hold ACEI for now -cont doxazosin 1 mg daily and titrate upward -daily bmp -cont prn hydralazine dose for sbp > 160 >>> 10 mg iv q4h ->>>>primary service to ensure pain/anxiety are controlled -agree w/ PT evaluation > use usual caution given HTN and bp meds (2) Acute kidney injury superimposed on CKD: New EDYTA on CKD; baseline of 1.8-2.0; presenting creatinine 2.6 on 08/30 and peak creatinine same. mejia 1.9 on 09/01; plateau past 4 days at 2.1-2.2>> plateau'd at 2.7 yesterday w/ slight improvement today to 2.5. poor po intake/N improving; HIDA surgical eval c/w chronic cholecystitis - lap starla deferred but still under consideration. also w/ only recently controlled after long stretch of uncontrolled HTN -daily bmp -minimize enaliprilat - cont to hold for now -BP control as above -nsaid and other nephrotoxin avoidance to continue -agree w/ trial of parenteral nutrition Subjective had issues taking po for test this am >> ongoing N. bp up again w/ that but improved later this am. no sob, no edema, no voiding issues; tolerating TPN Review of Systems Review of Systems: All systems reviewed & are unremarkable except as noted in HPI & below Physical Exam Constitutional: well developed and well nourished; no acute distress (on RA, sitting up in chair) Eyes: EOM intact bilaterally ENMT: Ears: no external ear abnormality Nose: no external nose abnormality Mouth: + dry oral mucous membranes Neck: no nuchal rigidity Respiratory: normal respiratory effort; no respiratory distress Auscult ation: lungs clear to auscultation bilaterally and + diminished lung sounds Cardiovascular: Rate/Rhythm: regular rate and regular rhythm Extremities: no edema Gastrointestinal (Abdomen): Inspection/Auscultation: normal bowel sounds Percussion/Palpation: abdomen soft; abdomen nontender Musculoskeletal: Extremities: strength 5/5 throughout Skin: no rashes, warm and dry Neurologic: hammond, fluent speech, + BLUE tremors at rest Psychiatric: A+Ox3, euthymic affect Orientation: alert and oriented x 3 Speech: normal rate/rhythm/volume of speech Affect: + anxious affect Results & Data Vital Signs (Past 12 Hours) Vital Signs Temp Pulse Pulse Pulse Resp BP BP 09/08/19 11:02 36.6 C 78 18 116/79 09/08/19 09:41 165/68 H 09/08/19 09:00 71 09/08/19 07:01 37.0 C 72 20 179/65 H 09/08/19 04:05 36.8 C 70 18 181/52 H 09/08/19 03:39 67 09/07/19 23:35 156/70 H Pulse Ox 09/08/19 11:02 95 09/08/19 09:41 09/08/19 09:00 09/08/19 07:01 96 09/08/19 04:05 97 09/08/19 03:39 09/07/19 23:35 Laboratory Results 09/07/19 06:19 09/08/19 06:34 (1) Hypertension Hypertension type: essential hypertension Qualified Code(s): I10 - Essential (primary) hypertension
[2019-09-08] MEDS ORDERED: PERIPHERAL PN IV SCH (16:00)
[2019-09-08] MEDS ORDERED: TPN IV SCH (16:00)
--- NOTE | 2019-09-08 17:06 | Hospitalist Progress Note ---
Date of Service September 08, 2019 Assessment & Plan (1) Nausea and vomiting: Presented with Anorexia, nausea, and vomiting after colon resection for colon cancer. H/O Caroli's disease --CT ABD:No abscess. No bowel obstruction. Mild left abdominal infiltration which is likely postsurgical. Pneumobilia. A few locules of gas within the gallbladder which is likely related. Minimal gallbladder distention without pericholecystic infiltration. 2.4 x 1.6 cm subcapsular segment 8 hypodensity. In part, this could reflect ductal dilatation. This is suboptimally assessed on this unenhanced exam and comparison with prior imaging studies, if available, is recommended. If no priors, a nonemergent MRI of the liver is recommended. Marked left renal atrophy. No hydronephrosis. --Gall Bladder USD:Stone versus sludge ball within the gallbladder. Mild gallbladder distention. No sonographic Sierra sign. No evidence for acute cholecystitis by sonography. Pneumobilia. No biliary dilatation. --HIDA Scan:Nonvisualization of the gallbladder at 60 minutes. There is delayed visualization of the gallbladder following morphine administration. This indicates patency of the cystic duct, and could indicate biliary dysfunction/chronic cholecystitis. Clinical correlation will be required. --Normal Recent EGD --Blood Cx: No growth to date --Continue IV zosyn for now --Received IV Fluids --Appreciate GI, Surgery Input --Continue parenteral nutrition due to poor oral intake --Plavix held for now --Could not complete gastric emptying study due to emesis --Plan for laparoscopic cholecystectomy tomorrow --Clear liquid diet for now --N.p.o. after midnight Persistent leukocytosis Blood, urine cultures negative Chest x-ray:No acute process. No obvious source of infection Consider ID evaluation if needed Monocytosis noted on differential Peripheral smear: Consistent with nonspecific normochromic, normocytic anemia with monocytosis. Not suggestive of myelodysplastic syndrome or myeloproliferative disorder or hemolytic anemia. WBC count trending down (2) Acute kidney injury superimposed on CKD: EDYTA on CKD IV Likely due to dehydration from poor oral intake Baseline Cr: 1.8 -2.0 Cr: 2.5 today Hold Losartan for now Appreciate Nephrology Input Monitor renal function Avoid Nephrotoxic agents as able Receiving 2.3 L through parenteral nutrition (3) Hypertension: Continue IV hydralazine, Doxazosin Losartan on hold due to EDYTA Continue amlodipine 10 mg daily, metoprolol 100 mg BID Appreciate Nephrology Input IV Vasotec held for now due to EDYTA IV hydralazine increased to Q4H for better BP control (4) GERD (gastroesophageal reflux disease): Continue Pepcid (5) Lupus: Stable (6) DVT prophylaxis: SQ heparin (7) Discharge planning issues: Expect to discharge home when medically stable PT/OT prior to discharge Primary care follow-up with Dr. Beasley. GI follow-up with [facility]. Subjective Patient is seen and examined at bedside Patient could not tolerate gastric emptying study this morning due to persistent nausea, vomiting Plan for laparoscopic cholecystectomy tomorrow On TPN Denies abdominal pain, chest pain, shortness of breath, dizziness No other complaints Review of Systems Review of Systems: All systems reviewed & are unremarkable except as noted in HPI & below Physical Exam Physical Exam: Physical Exam: Vitals signs as noted above General Appearance:Moderately built and nourished, no apparent distress Head: normocephalic, Atraumatic Eyes: normal inspection, EOMI Neck: supple, Trachea midline Respiratory/Chest: Normal breath sounds, CTA Cardiovascular: S1, S2, +systolic murmur Abdomen/GI:Soft, Non tender, Bowel sounds present Extremities/Musculoskelatal:normal inspection, no edema Neurologic/Psych:AAOX3, grossly no focal neurological deficits Skin: normal color, warm Results & Data Vital Signs (Past 12 Hours) Vital Signs Temp Pulse Pulse Resp BP BP Pulse Ox 09/08/19 15:28 68 09/08/19 14:56 36.9 C 67 18 151/66 H 95 09/08/19 14:19 67 151/66 H 09/08/19 11:02 36.6 C 78 18 116/79 95 09/08/19 09:41 165/68 H 09/08/19 09:00 71 09/08/19 07:01 37.0 C 72 20 179/65 H 96 Laboratory Results [facility] 09/08/19 06:34 Sodium 134 L Potassium 3.8 Chloride 100 Carbon Dioxide 26 BUN 43 H Creatinine 2.51 H Glucose 119 H Calcium 8.5 (1) Hypertension Hypertension type: essential hypertension Qualified Code(s): I10 - Essential (primary) hypertension
[2019-09-08] MEDS: ASPIRIN 81 MG ECTAB PO SCH (20:12)
[2019-09-08] MEDS: DOXAZOSIN MESYLATE 1 MG TAB PO SCH (20:13)
[2019-09-08] MEDS: ALPRAZolam 0.5 MG TABLET PO SCH (20:16)
[2019-09-09] MEDS: HydrALAZINE HCL 20 MG/ML VIAL IV SCH ×3 (01:40→10:53)
[2019-09-09] MEDS: HydrALAZINE HCL 20 MG/ML VIAL IV PRN (03:24)
[2019-09-09] MEDS: HEPARIN SOD 5,000 UNIT/0.5 ML VIAL SQ SCH (05:52)
[2019-09-09] MEDS: METOCLOPRAMIDE HCL 10 MG TABLET PO SCH ×3 (05:53→18:10)
[2019-09-09] MEDS ORDERED: PROPOFOL IV EMULSION 10 MG/ML 20 ML VIAL IV ONE (06:48)
[2019-09-09] MEDS ORDERED: fentaNYL citrate 100 MCG/2 ML VIAL ONE ×3 (06:48→12:31)
[2019-09-09] MEDS ORDERED: BUPIVACAINE/EPINEPHRINE 0.5% MPF 1:200,000 10 ML VIAL ONE (06:58)
--- NOTE | 2019-09-09 07:09 | History & Physical Bridge Note ---
Date of Service September 09, 2019 History & Physical Bridge Note I have examined the patient, reviewed the History & Physical and in the interval since the performance of the History & Physical I have noted the following changes of clinical significance: no changes noted pt seen. no improvement. was unable to tolerate gastric emptying study secondary to nausea. ? etiology. nothing seems to be helping. discussed options/risks ( bleeding/infection/injury to an organ/bile leaks/dvt/pe/mi/cva etc...) questions answered. will proceed with lap/poss open cholecystectomy. We discussed there is no guarantee this will resolve her symptoms. pt agreeable.
--- NOTE | 2019-09-09 07:29 | Anesthesiology Consultation ---
Date of Service September 09, 2019 Assessment & Plan Chart Review Chart Review: Acceptable Risk for Surgery Consults Requested none History Surgery Operation Date: 09/09/19 07:15 Proposed Procedures p Laparoscopic Cholecystectomy, Possible Cholangiogram - Ronny Madsen DO Height/Weight Height: 5 ft 7 in Weight: 71.1 kg Allergies Allergy/AdvReac Type Severity Reaction Status Date / Time Iodinated Contrast Media Allergy Severe HIVES/DIFFICULTY Verified 08/30/19 16:38 SWALLOWING Medications Home Medications Medication Instructions Recorded Confirmed Last Taken aspirin 81 mg PO HS 08/19/18 08/30/19 09/10/18 clopidogrel 75 mg PO QAM 08/19/18 08/30/19 09/10/18 cyanocobalamin (vitamin B-12) 1,000 mcg PO QAM 08/19/18 08/30/19 09/18/18 08:00 losartan 100 mg PO QAM 08/19/18 08/30/19 09/15/18 ranitidine HCl 150 mg PO BID 08/19/18 08/30/19 09/18/18 08:00 alprazolam 0.25 mg PO BID PRN 08/30/19 08/30/19 Unknown alprazolam 0.5 mg PO HS 08/30/19 08/30/19 Unknown amlodipine 10 mg PO DAILY 08/30/19 08/30/19 Unknown hydralazine 50 mg PO TID 08/30/19 08/30/19 Unknown metoprolol tartrate [Lopressor] 100 mg PO BID 08/30/19 08/30/19 Unknown sertraline 50 mg PO DAILY 08/30/19 08/30/19 Unknown tramadol 50 mg PO Q6H PRN 08/30/19 08/30/19 Unknown Active Medications Generic Name Dose Route Start Last Admin Trade Name Freq PRN Reason Stop Dose Admin Alprazolam 0.5 mg 08/30/19 21:00 09/08/19 20:16 Xanax PO 09/29/19 20:59 0.5 mg HS REUBEN Administration Amlodipine Besylate 10 mg 08/31/19 09:00 09/08/19 09:36 Norvasc PO 09/30/19 08:59 10 mg DAILY REUBEN Administration Aspirin 81 mg 08/30/19 21:00 09/08/19 20:12 Ecotrin Ectab PO 09/29/19 20:59 81 mg HS REUBEN Administration Cyanocobalamin 1,000 mcg 08/31/19 09:00 09/08/19 09:36 Vitamin B-12 PO 09/30/19 08:59 1,000 mcg QAM REUBEN Administration Doxazosin Mesylate 1 mg 09/05/19 21:00 09/08/19 20:13 Cardura PO 10/05/19 20:59 1 mg HS REUBEN Administration Famotidine 20 mg 08/30/19 21:00 09/08/19 20:13 Pepcid PO 09/29/19 20:59 20 mg BID REUBEN Administration Heparin Sodium (Porcine) 5,000 units 08/30/19 22:00 09/09/19 05:52 Heparin Sodium (Porcine) SQ 09/29/19 21:59 Not Given Q8 REUBEN Hydralazine HCl 10 mg 09/05/19 17:41 09/09/19 03:24 Hydralazine Hcl IV 10/05/19 17:40 10 mg Q4H PRN Administration sbp > 160 Hydralazine HCl 10 mg 09/08/19 10:00 09/09/19 06:03 Hydralazine Hcl IV 10/08/19 09:59 10 mg Q4H REUBEN Administration Enalaprilat 0.625 mg/ Syringe 10 mls @ 2 mls/min 09/05/19 18:00 09/06/19 12:00 IV 10/05/19 17:59 Not Given Q6H REUBEN Piperacillin Sod/Tazobactam 115 mls @ 28.75 mls/hr 09/07/19 21:00 09/09/19 00:30 Sod 3.375 gm/ Dextrose IV 09/11/19 23:59 Infused Q12 REUBEN Infusion Protocol Nutrition (Parenteral) 1 ml/ 2,300 mls @ 95.83 mls/hr 09/08/19 16:00 09/09/19 07:17 TPN BAG IV 09/09/19 15:59 0 mls/hr .Q24H REUBEN Infusion Protocol Megestrol Acetate 40 mg 09/05/19 11:00 09/08/19 09:36 Megace PO 10/05/19 10:59 40 mg QAM REUBEN Administration Metoclopramide HCl 10 mg 09/01/19 12:00 09/09/19 05:53 Reglan PO 10/01/19 11:59 Not Given Q6 REUBEN Metoprolol Tartrate 100 mg 08/30/19 21:00 09/08/19 20:14 Lopressor PO 09/29/19 20:59 100 mg BID REUBEN Administration Ondansetron HCl 4 mg 08/30/19 19:58 09/04/19 13:29 Zofran IV 09/29/19 19:57 4 mg Q6H PRN Administration Nausea Sertraline HCl 50 mg 08/31/19 09:00 09/08/19 09:36 Zoloft PO 09/30/19 08:59 50 mg DAILY REUBEN Administration NPO Date Last Intake of Fluids: 09/08/19 Time Last Intake of Fluids: 22:00 Date Last Intake of Solids: 09/08/19 Time Last Intake of Solids: 08:00 Past Medical History Medical History Atrophy of left kidney Cancer MULTIPLE SKIN CANCER REMOVALS (RADIATION FOR SKIN CANCER/UPPER LIP) Carolis disease (Chronic) CKD (chronic kidney disease), stage IV (Chronic) Endometriosis GERD (gastroesophageal reflux disease) (Chronic) History of CVA (cerebrovascular accident) (Chronic) 2016, no residual deficits Hyperlipidemia Hypertension (Chronic) Lupus (Chronic) Migraine Mood disorder Osteoarthritis Past Family History Family History Father Family hx colonic polyps Sister Cholangiocarcinoma Other Alzheimer disease Heart disease Hypertension Past Surgical History Surgical History History of colon resection (Chronic) Aug 05 2019 at [facility]. Patient stated she had surgery early in the morning and didn't remember waking up until 1 AM. She is unaware of how long the procedure was and she was not intubated post-op. History of colonoscopy History of esophagogastroduodenoscopy (EGD) History of tonsillectomy History of tooth extraction History of total abdominal hysterectomy and bilateral salpingo-oophorectomy Social History Smoking Status: Never smoker Hx Alcohol Use: No Hx Substance Use: No substance use type: does not use Physical Exam Vital Signs Last Vital Signs Temp 37.4 C 09/09/19 06:48 Pulse 69 09/09/19 06:54 Resp 18 09/09/19 06:48 BP 171/77 H 09/09/19 06:48 Pulse Ox 96 09/09/19 06:48 Testing Laboratory Results 09/07/19 06:19 09/08/19 06:34 Urine Color Yellow 08/30/19 17:00 Urine Appearance Clear (Clear) 08/30/19 17:00 Urine pH 5.5 (4.5-7.5) 08/30/19 17:00 Ur Specific [place] >= 1.030 (1.000-1.030) 08/30/19 17:00 Urine Protein Trace (Negative) H 08/30/19 17:00 Urine Glucose (UA) Negative (Negative) 08/30/19 17:00 Urine Ketones Negative (Negative) 08/30/19 17:00 Urine Nitrite Negative (Negative) 08/30/19 17:00 Ur Leukocyte Esterase 2+ (Negative) H 08/30/19 17:00 Urine RBC 0-4 /hpf (0-4) 08/30/19 17:00 Urine WBC >30 /hpf (0-5) H 08/30/19 17:00 Ur Epithelial Cells >30 /lpf (0-5) H 08/30/19 17:00 08/30/19 20:19 Aerobic Blood Culture - Final Blood No growth in Aerobic bottle after 5 days. Anaerobic Blood Culture - Final No growth in Anaerobic bottle after 5 days. 08/30/19 20:17 Aerobic Blood Culture - Final Blood No growth in Aerobic bottle after 5 days. Anaerobic Blood Culture - Final No growth in Anaerobic bottle after 5 days. 08/30/19 17:00 Urine Culture - Final Urine,Clean Catch More than three types of organisms present, all moderate counts mixed probable skin grisel. No further identifications or sensitivities to follow. 09/09/19 09/08/19 06:29 23:57 POC Glucose 142 H 138 H
[2019-09-09] MEDS: PIPERACILLIN/TAZOBACTAM 3.375 GM in DEXTROSE 5% 100 ML IV SCH ×3 (07:45→21:07)
[2019-09-09] MEDS ORDERED: NEOSTIGMINE METHYLSULFATE 5 MG/5 ML SYR ONE (08:14)
[2019-09-09] MEDS ORDERED: GLYCOPYRROLATE 0.2 MG/ML VIAL ONE (08:14)
[2019-09-09] MEDS ORDERED: ROCURONIUM BROMIDE 10 MG/ML 5 ML VIAL ONE ×5 (08:14→14:45)
[2019-09-09] MEDS ORDERED: ONDANSETRON INJ 2 MG/ML 2 ML VIAL ONE (08:14)
[2019-09-09] MEDS ORDERED: LIDOCAINE HCL 2% 2 ML VIAL/AMP(20MG/ML) INFIL ONE (08:14)
[2019-09-09] MEDS ORDERED: PROMETHAZINE HCL 12.5 MG in SODIUM CHLORIDE 0.9% 50 ML IV PRN (08:28)
[2019-09-09] MEDS ORDERED: ePHEDrine sulfate 50 MG/ML AMP IV PRN (08:28)
[2019-09-09] MEDS ORDERED: HYDROmorphone INJ 1 MG/ML SYRINGE IV PRN ×2 (08:28→10:04)
[2019-09-09] MEDS ORDERED: METOCLOPRAMIDE HCL INJ 5 MG/ML 2 ML VIAL IV PRN (08:28)
[2019-09-09] MEDS ORDERED: ONDANSETRON INJ 2 MG/ML 2 ML VIAL IV PRN (08:28)
[2019-09-09] MEDS ORDERED: ATROPINE SULFATE 0.1 MG/ML 10ML SYR IV PRN (08:28)
--- NOTE | 2019-09-09 08:48 | Operative Report ---
PG Post Operative Report Pre & Post Diagnosis Operation Date: 09/09/19 07:15 Pre-Op Diagnosis: Gallstones Post-Op Diagnosis: Gallstones I identified the patient and participated in the time-out.: Yes Procedure Operation Date: 09/09/19 07:15 Actual Procedures p Laparoscopic Cholecystectomy - Ronny Madsen DO Surgeon Ronny Madsen DO [employer]om[employer] Volley[employer] Coach niki Obrien Estimated Blood Loss 250 Findings Consistent with Post-Op Diagnosis Specimens gallbladder Description of Procedure After informed consent was obtained the patient was taken to the operating room and placed in the supine position. After successful intubation the abdomen was sterilely prepped and draped in usual fashion. A periumbilical incision was made with an 11 blade scalpel and carried down through the soft tissue using electrocautery. The anterior rectus fascia was opened using electrocautery and 2 #0 Vicryl stay sutures were placed. The peritoneum was elevated with hemostats and incised under direct vision using Metzenbaum scissors. A finger sweep was performed and a 12 mm Baeza trocar was placed. The abdomen was insufflated to 18 mmHg. The laparoscope was inserted and the abdomen was examined in 360. Other than some minimal adhesions in the lower abdomen from her recent colon surgery involving primarily omentum, no gross abnormalities were identified. A subxiphoid 5 mm port and 2 right upper quadrant 5 mm ports were placed under direct vision. The patient was placed in a reverse Trendelenburg position and slightly airplaned to the left. The gallbladder was grasped and elevated superiorly and laterally. A [place] dissector was used to take down adhesions around the neck of the gallbladder. The cystic duct was identified and skeletonized. It was clipped twice proximally and once distally and transected using a laparoscopic scissor. In similar fashion the cystic artery was identified and skeletonized clipped and divided. The gallbladder was removed from the gallbladder fossa with electrocautery. It was placed into an Endo Catch bag. Thorough irrigation was performed. Several small bleeding points on the gallbladder fossa were controlled using cautery. There is also a small vein that was bleeding for me taking down the adhesions that I had the use a clip mill dresser to control. At the end of the procedure there was adequate hemostasis and no evidence of any bile leaks. A final look around the abdomen showed no other abnormalities other than a very small nonincarcerated hiatal hernia. I saw no other reason for the patient's nausea. The gallbladder and trochars were all removed and the abdomen was desufflated. The fascia of the camera port was closed using 0 Vicryl in a [id number] fashion. All the wounds were irrigated and closed using 4-0 Monocryl. Marcaine was injected around them for postoperative analgesia and skin glue used as a dressing. The patient was awaken extubated and transferred to recovery in stable condition. My physician's equal opportunity assistant was present throughout the entire case... helped with prepping the patient. With exposure for trocar placement, as well as retracted the gallbladder throughout the case and also assisted with wound closure and dressing placement. I attest to the content of the Intraoperative Record and any orders documented therein. Any exceptions are noted below.
[2019-09-09] MEDS: fentaNYL citrate 100 MCG/2 ML VIAL IV PRN ×2 (09:09→09:14)
[2019-09-09] MEDS ORDERED: HYDROmorphone INJ 0.5 MG/0.5 ML SYR IV PRN (10:04)
[2019-09-09] MEDS ORDERED: HYDROCODONE/ACETAMOPHEN 5/325MG TAB PO PRN ×2 (10:04)
--- NOTE | 2019-09-09 10:21 | Anesthesiology Progress Note ---
Date of Service September 09, 2019 Anesthesia Post Procedure Vital Signs Vital Signs: Temp Pulse Pulse Pulse Pulse Resp BP 09/09/19 10:09 36.4 C L 77 16 09/09/19 09:55 37.1 C 74 16 09/09/19 09:40 37.0 C 76 18 09/09/19 09:30 78 18 09/09/19 09:20 79 18 09/09/19 09:10 86 18 09/09/19 09:00 37.6 C H 94 H 18 09/09/19 06:54 69 09/09/19 06:48 37.4 C 73 73 18 09/09/19 06:02 36.6 C 71 20 09/09/19 03:16 37.2 C 75 18 09/09/19 01:38 91 H 09/09/19 00:53 63 09/08/19 22:08 37.2 C 65 19 09/08/19 21:46 155/59 H 09/08/19 20:11 69 167/62 H 09/08/19 18:54 37.4 C 19 L 67 19 161/73 H 09/08/19 17:06 09/08/19 15:28 68 09/08/19 14:56 36.9 C 67 18 09/08/19 14:19 67 09/08/19 11:02 36.6 C 78 18 BP Pulse Ox 09/09/19 10:09 81/47 L 98 09/09/19 09:55 92/54 L 98 09/09/19 09:40 109/47 L 99 09/09/19 09:30 109/47 L 99 09/09/19 09:20 111/55 L 100 09/09/19 09:10 143/57 H 99 09/09/19 09:00 181/59 H 99 09/09/19 06:54 09/09/19 06:48 171/77 H 96 09/09/19 06:02 168/51 H 94 09/09/19 03:16 161/60 H 94 09/09/19 01:38 180/65 H 09/09/19 00:53 09/08/19 22:08 156/65 H 97 09/08/19 21:46 09/08/19 20:11 09/08/19 18:54 96 09/08/19 17:06 183/64 H 09/08/19 15:28 09/08/19 14:56 151/66 H 95 09/08/19 14:19 151/66 H 09/08/19 11:02 116/79 95 Transfer of Care Handoff Completed per policy Notes Mental Status: alert / awake / arousable and participated in evaluation Patient Amnestic to Procedure: Yes Nausea / Vomiting: adequately controlled Pain: adequately controlled Airway Patency, RR, SpO2: stable & adequate BP & HR: stable & adequate Hydration State: stable & adequate Anesthetic Complications: no major complications apparent
[2019-09-09] MEDS ORDERED: SODIUM CHLORIDE 0.9% 500 ML IV ONE (10:22)
[2019-09-09] MEDS: METOPROLOL TARTRATE 100 MG TAB PO SCH (10:53)
[2019-09-09] MEDS ORDERED: NALOXONE HCL 0.4 MG/1 ML VIAL/CARP IV STA (11:30)
[2019-09-09] MEDS ORDERED: NALOXONE HCL 0.4 MG/1 ML VIAL/CARP ONE (11:30)
[2019-09-09] MEDS ORDERED: NOREPINEPHRINE (Adult) 8 MG in DEXTROSE 5% 500 ML IV SCH (12:00)
[2019-09-09 12:03] LABS: Base Excess VBG -6.1 mEq/L; pH VBG 7.36 (7.36-7.41)
[2019-09-09 12:17] LABS: Albumin Globulin Ratio 0.5 (0.9-2); Albumin Level 1.3 gm/dl (3.4-5.0); BUN Creatinine Ratio 16.3 (10-20); Bilirubin,Total 0.4 mg/dl (0.2-1); Calcium 7.2 mg/dl (8.5-10.1); Creatinine Clr Calc Pharmacy 18.5 ml/min; Est GFR (African American) 20.6; Est GFR (Non-African American) 17.8; Globulin 2.8 gm/dl (2.5-4.0); Hematocrit (blood only) 14.2 % (37-47); Hemoglobin 4.6 g/dL (12.0-16.0); Magnesium 2.3 mg/dl (1.8-2.4); Mean Corpuscular Hemoglobin 28.4 pg (25-34); Mean Corpuscular Hgb Conc 32.4 g/dL (32-36); Mean Corpuscular Volume 87.7 fL (80-100); Mean Platelet Volume 9.7 fL (7.4-10.4); Phosphorus 4.8 mg/dl (2.5-4.9); Platelet Count 220 K/uL (130-400); Potassium 4.7 mmol/L (3.5-5.1); RDW Coefficient of Variation 17.7 % (11.5-14.5); RDW Standard Deviation 56.2 fL (36.4-46.3); Red Blood Count 1.62 M/uL (4.2-5.4); Total Protein 4.1 gm/dl (6.4-8.2); White Blood Count 11.08 K/uL (4.8-10.8)
[2019-09-09 12:22] LABS: Basophils # (auto) 0.01 K/uL (0-0.2); Basophils % (auto) 0.1 %; Echinocytes 1+; Eosinophils # (auto) 0.02 K/uL (0-0.5); Eosinophils % (auto) 0.2 %; Immature Granulocytes # (auto) 0.07 K/uL (0.00-0.02); Immature Granulocytes % (auto) 0.6 %; Lymphocytes # (auto) 1.39 K/uL (1.2-3.4); Lymphocytes % (auto) 12.5 %; Monocytes # (auto) 1.22 K/uL (0.11-0.59); Neutrophils # (auto) 8.37 K/uL (1.4-6.5); Neutrophils % (auto) 75.6 %
[2019-09-09] MEDS ORDERED: MIDAZOLAM HCL 1 MG/ML 2ML VIAL ONE ×2 (12:29→12:30)
--- NOTE | 2019-09-09 12:39 | Anesthesiology Consultation ---
Date of Service September 09, 2019 Assessment & Plan ASA [id number] Proposed Anesthesia Anesthesia Type: General Risk / Benefits Reviewed With: PT / POA / Parent / Guardian, Accepts Plan and Informed Consent Obtained (Emergency conset from am to be used) History Surgery Operation Date: 09/09/19 07:15 Proposed Procedures p Laparoscopic Cholecystectomy, Possible Cholangiogram - Ronny Madsen DO Operation Date: 09/09/19 09:00 Proposed Procedures p Diagnostic Laparoscopy - Ronny Madsen DO Height/Weight Height: 5 ft 7 in Weight: 71.1 kg Allergies Allergy/AdvReac Type Severity Reaction Status Date / Time Iodinated Contrast Media Allergy Severe HIVES/DIFFICULTY Verified 08/30/19 16:38 SWALLOWING Medications Home Medications Medication Instructions Recorded Confirmed Last Taken aspirin 81 mg PO HS 08/19/18 08/30/19 09/10/18 clopidogrel 75 mg PO QAM 08/19/18 08/30/19 09/10/18 cyanocobalamin (vitamin B-12) 1,000 mcg PO QAM 08/19/18 08/30/19 09/18/18 08:00 losartan 100 mg PO QAM 08/19/18 08/30/19 09/15/18 ranitidine HCl 150 mg PO BID 08/19/18 08/30/19 09/18/18 08:00 alprazolam 0.25 mg PO BID PRN 08/30/19 08/30/19 Unknown alprazolam 0.5 mg PO HS 08/30/19 08/30/19 Unknown amlodipine 10 mg PO DAILY 08/30/19 08/30/19 Unknown hydralazine 50 mg PO TID 08/30/19 08/30/19 Unknown metoprolol tartrate [Lopressor] 100 mg PO BID 08/30/19 08/30/19 Unknown sertraline 50 mg PO DAILY 08/30/19 08/30/19 Unknown tramadol 50 mg PO Q6H PRN 08/30/19 08/30/19 Unknown Active Medications Generic Name Dose Route Start Last Admin Trade Name Freq PRN Reason Stop Dose Admin Aspirin 81 mg 08/30/19 21:00 09/08/19 20:12 Ecotrin Ectab PO 09/29/19 20:59 81 mg HS REUBEN Administration Famotidine 20 mg 08/30/19 21:00 09/08/19 20:13 Pepcid PO 09/29/19 20:59 20 mg BID REUBEN Administration Piperacillin Sod/Tazobactam 115 mls @ 28.75 mls/hr 09/07/19 21:00 09/09/19 09:44 Sod 3.375 gm/ Dextrose IV 09/11/19 23:59 Not Given Q12 REUBEN Protocol Nutrition (Parenteral) 1 ml/ 2,300 mls @ 95.8 mls/hr 09/08/19 16:00 09/09/19 10:30 TPN BAG IV 09/09/19 15:59 95.8 mls/hr .Q24H REUBEN Infusion Protocol Megestrol Acetate 40 mg 09/05/19 11:00 09/08/19 09:36 Megace PO 10/05/19 10:59 40 mg QAM REUBEN Administration Metoclopramide HCl 10 mg 09/01/19 12:00 09/09/19 05:53 Reglan PO 10/01/19 11:59 Not Given Q6 REUBEN Ondansetron HCl 4 mg 08/30/19 19:58 09/04/19 13:29 Zofran IV 09/29/19 19:57 4 mg Q6H PRN Administration Nausea Sertraline HCl 50 mg 08/31/19 09:00 09/08/19 09:36 Zoloft PO 09/30/19 08:59 50 mg DAILY REUBEN Administration NPO Date Last Intake of Fluids: 09/08/19 Time Last Intake of Fluids: 22:00 Date Last Intake of Solids: 09/08/19 Time Last Intake of Solids: 08:00 Past Medical History Medical History Atrophy of left kidney Cancer MULTIPLE SKIN CANCER REMOVALS (RADIATION FOR SKIN CANCER/UPPER LIP) Carolis disease (Chronic) CKD (chronic kidney disease), stage IV (Chronic) Endometriosis GERD (gastroesophageal reflux disease) (Chronic) History of CVA (cerebrovascular accident) (Chronic) 2017, no residual deficits Hyperlipidemia Hypertension (Chronic) Lupus (Chronic) Migraine Mood disorder Osteoarthritis Past Family History Family History Father Family hx colonic polyps Sister Cholangiocarcinoma Other Alzheimer disease Heart disease Hypertension Past Surgical History Surgical History History of colon resection (Chronic) Aug 05 2019 at [facility]. Patient stated she had surgery early in the morning and didn't remember waking up until 1 AM. She is unaware of how long the procedure was and she was not intubated post-op. History of colonoscopy History of esophagogastroduodenoscopy (EGD) History of tonsillectomy History of tooth extraction History of total abdominal hysterectomy and bilateral salpingo-oophorectomy S/P laparoscopic cholecystectomy (09/09/19) Laparoscopic Cholecystectomy Dr. Madsen 09-09-19 Social History Smoking Status: Never smoker Hx Alcohol Use: No Hx Substance Use: No substance use type: does not use Review of Systems pt intubated sedated on levophed hgb 4.7. Physical Exam Vital Signs Last Vital Signs Temp 36.4 C L 09/09/19 10:35 Pulse 73 09/09/19 10:35 Resp 16 09/09/19 10:09 BP 86/46 L 09/09/19 10:35 Pulse Ox 98 09/09/19 10:35 ENMT Mouth: no TMJ abnormality and no dentition abnormality Thyromental Distance: > or= 3.5 Finger Breadths Mallampati Class: II exam from this am. Neck neck extension not limited Respiratory normal respiratory effort; no respiratory distress Auscultation: lungs clear to auscultation bilaterally Cardiovascular Rate/Rhythm: regular rate and regular rhythm Neurologic moves all extremities Psychiatric Orientation: alert and oriented x 3 Testing Laboratory Results 09/09/19 11:37 09/09/19 11:37 Urine Color Yellow 08/30/19 17:00 Urine Appearance Clear (Clear) 08/30/19 17:00 Urine pH 5.5 (4.5-7.5) 08/30/19 17:00 Ur Specific [place] >= 1.030 (1.000-1.030) 08/30/19 17:00 Urine Protein Trace (Negative) H 08/30/19 17:00 Urine Glucose (UA) Negative (Negative) 08/30/19 17:00 Urine Ketones Negative (Negative) 08/30/19 17:00 Urine Nitrite Negative (Negative) 08/30/19 17:00 Ur Leukocyte Esterase 2+ (Negative) H 08/30/19 17:00 Urine RBC 0-4 /hpf (0-4) 08/30/19 17:00 Urine WBC >30 /hpf (0-5) H 08/30/19 17:00 Ur Epithelial Cells >30 /lpf (0-5) H 08/30/19 17:00 Blood Type AB Positive 09/09/19 11:40 Antibody Screen NEGATIVE 09/09/19 11:40 08/30/19 20:19 Aerobic Blood Culture - Final Blood No growth in Aerobic bottle after 5 days. Anaerobic Blood Culture - Final No growth in Anaerobic bottle after 5 days. 08/30/19 20:17 Aerobic Blood Culture - Final Blood No growth in Aerobic bottle after 5 days. Anaerobic Blood Culture - Final No growth in Anaerobic bottle after 5 days. 08/30/19 17:00 Urine Culture - Final Urine,Clean Catch More than three types of organisms present, all moderate counts mixed probable skin grisel. No further identifications or sensitivities to follow. 09/09/19 09/09/19 11:23 06:29 POC Glucose 299 H 142 H
[2019-09-09 12:41] LABS: INR 1.2 (0.9-1.1); Prothrombin Time 11.9 Seconds (9.0-12.0)
[2019-09-09] MEDS ORDERED: SODIUM CHLORIDE 0.9% 250 ML IV PRN (12:42)
--- NOTE | 2019-09-09 12:46 | History & Physical Bridge Note ---
Date of Service September 09, 2019 History & Physical Bridge Note I have examined the patient, reviewed the History & Physical and in the interval since the performance of the History & Physical I have noted the following changes of clinical significance: no changes noted call with pt hypotensive and lethargic. transferred to ICU. stat hg 4.6 and US shows fluid in abdomen. suspect port site bleed. will take back to OR stat to control bleed and washout abdomen. pt currently intubated. will attempt to co ntact family.
--- NOTE | 2019-09-09 12:52 | Critical Care Consultation ---
Date of Consultation September 09, 2019 Assessment & Plan (1) Hemorrhagic shock: -- Shock likely hemorrhagic s/p OR Bedside US showed free fluid in the abdomen, Surgeon made aware. Patient given 2 liters bolus. c/w bolus. Patient was still hypotensive with MAP in low 50's. Pressors started for hemodynamic support. Central line placed and patient intubated on emergency basis Massive transfusion protocol initiated. Patient to get at least 3 units PRBC and if still needs more than 4:1:1 ratio for FFP and Cryoprecipitate Patient to go to OR emergently follow up PT/INR and Fibrinogen. Will give Tranexamic acid IV once. Consider desmopressin given patient was on Plavix till 09/05/19 -- VDRF sec to Metabolic encephalopathy sec to shock Continue with ventilatory support Keep RASS -1 Daily sedation holidays and SBT's Chlorhexidine mouthwash -- High anion gap delta delta >2 metabolic acidosis plus alkalosis acidosis sec to lactic acidosis. Alkalosis ? oral suctioning while in OR monitor repeat it after giving fluids and PRBCs -- EDYTA on CKD sec to shock monitor BUN/Cr -- Severe protein calorie malnutrition Albumin only 1.3 patient on TPN. NPO for the time being Will start NGT feeds once cleared by Surgeon. 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 Patient was on Plavix which was stopped on 13 September and patient was taken to the OR today for cholecystectomy. Code sabine was called as patient was found to be obtunded and hypotensive. At the time of examination blood pressure was systolic in the high 50s with map in the low 50s. Patient was obtunded but will respond to calling her name loudly. Used to follows simple commands like moving her arms and legs. Patient had gu rgling sound. Patient was being given bolus liter normal saline another IV access was obtained and a liter bolus was started from the line as well. Initially patient was given 0.4 mg of Narcan given that the patient just came from the OR and she got fentanyl while in the OR. Which was followed by 1 mg of Narcan. Patient became little bit more alert but still very lethargic. Patient was put in telemetry normal position with slight improvement in the blood pressure and patient was transferred to MICU for further care. Given the patient was hypotensive even after receiving 2.5 L plan was to put central line and intubate for airway protection. Allergies Allergy/AdvReac Type Severity Reaction Status Date / Time Iodinated Contrast Media Allergy Severe HIVES/DIFFICULTY Verified 08/30/19 16:38 SWALLOWING Home Medications Home Medications Medication Instructions Recorded Confirmed Type aspirin 81 mg PO HS 08/19/18 08/30/19 History clopidogrel 75 mg PO QAM 08/19/18 08/30/19 History cyanocobalamin (vitamin B-12) 1,000 mcg PO QAM 08/19/18 08/30/19 History losartan 100 mg PO QAM 08/19/18 08/30/19 History ranitidine HCl 150 mg PO BID 08/19/18 08/30/19 History alprazolam 0.25 mg PO BID PRN 08/30/19 08/30/19 History alprazolam 0.5 mg PO HS 08/30/19 08/30/19 History amlodipine 10 mg PO DAILY 08/30/19 08/30/19 History hydralazine 50 mg PO TID 08/30/19 08/30/19 History metoprolol tartrate [Lopressor] 100 mg PO BID 08/30/19 08/30/19 History sertraline 50 mg PO DAILY 08/30/19 08/30/19 History tramadol 50 mg PO Q6H PRN 08/30/19 08/30/19 History Patient History Medical History Atrophy of left kidney Cancer MULTIPLE SKIN CANCER REMOVALS (RADIATION FOR SKIN CANCER/UPPER LIP) Carolis disease (Chronic) CKD (chronic kidney disease), stage IV (Chronic) Endometriosis GERD (gastroesophageal reflux disease) (Chronic) History of CVA (cerebrovascular accident) (Chronic) 2016, no residual deficits Hyperlipidemia Hypertension (Chronic) Lupus (Chronic) Migraine Mood disorder Osteoarthritis Surgical History History of colon resection (Chronic) Aug 05 2019 at [facility]. Patient stated she had surgery early in the morning and didn't remember waking up until 1 AM. She is unaware of how long the procedure was and she was not intubated post-op. History of colonoscopy History of esophagogastroduodenoscopy (EGD) History of tonsillectomy History of tooth extraction History of total abdominal hysterectomy and bilateral salpingo-oophorectomy S/P laparoscopic cholecystectomy (09/09/19) Laparoscopic Cholecystectomy Dr. Madsen 09-09-19 Family History Father Family hx colonic polyps Sister Cholangiocarcinoma Other Alzheimer disease Heart disease Hypertension Social History Preferred Language: Kiswahili Communication Ability: Effective Gaming Cage Worker Required: No Beliefs That Will Affect Care: None marital status: Unknown Current Living Situation: Alone Feels Safe at Home: Yes Safety Concerns: Feels Safe At This Time Smoking Status: Never smoker Second Hand Exposure: No ; Hx Alcohol Use: No Hx Substance Use: No Review of Systems Review of Systems: Unobtainable due to cognitive status Physical Exam 2 Physical Exam: Constitutional: Somnolent HEENT: PERRLA, pale conjunctiva Respiratory system: Mild crackles bilateral lower lobes, decreased air entry bilaterally, no wheeze, no rhonchi CVS: S1-S2 positive, no murmurs or gallops Abdomen: Soft, mild epigastric tenderness, nondistended, positive bowel sounds x4, positive bruising appreciated bilaterally, laparoscopic incision site intact. Extremities: +2 pulses bilaterally radialis/ dorsalis pedis, no cyanosis, no edema Neuro: Somnolent but patient responsive on sternal rub. GCS 11 Psych: Unable to assess G/U: No Fischer Skin: + turgor decreased Cold and clammy Lymphatic: no cervical or axillary lymphadenopathy Results & Data Vital Signs (Past 12 Hours) Vital Signs Temp Pulse Pulse Pulse Pulse Resp BP 09/09/19 12:43 36.4 C L 84 19 114/48 L 09/09/19 10:35 36.4 C L 73 09/09/19 10:09 36.4 C L 77 16 09/09/19 09:55 37.1 C 74 16 09/09/19 09:40 37.0 C 76 18 09/09/19 09:30 78 18 09/09/19 09:20 79 18 09/09/19 09:10 86 18 09/09/19 09:00 37.6 C H 94 H 18 09/09/19 06:54 69 09/09/19 06:48 37.4 C 73 73 18 09/09/19 06:02 36.6 C 71 20 09/09/19 03:16 37.2 C 75 18 09/09/19 01:38 91 H 09/09/19 00:53 63 BP Pulse Ox 09/09/19 12:43 100 09/09/19 10:35 86/46 L 98 09/09/19 10:09 81/47 L 98 09/09/19 09:55 92/54 L 98 09/09/19 09:40 109/47 L 99 09/09/19 09:30 109/47 L 99 09/09/19 09:20 111/55 L 100 09/09/19 09:10 143/57 H 99 09/09/19 09:00 181/59 H 99 09/09/19 06:54 09/09/19 06:48 171/77 H 96 09/09/19 06:02 168/51 H 94 09/09/19 03:16 161/60 H 94 09/09/19 01:38 180/65 H 09/09/19 00:53 09/09/19 11:37 09/09/19 11:37 Coding Level of Care Code Critical Care 1st 30-74 mins Diagnoses Hemorrhagic shock R57.8 Metabolic encephalopathy G93.41 EDYTA (acute kidney injury) N17.9 Time Spent (min) 65
[2019-09-09] MEDS ORDERED: EPINEPHrine INJ 1 MG/ML AMP ONE (12:59)
[2019-09-09] MEDS ORDERED: BUPIVACAINE 0.5 % 5 MG/1 ML MPF 30ML VIAL ONE (12:59)
--- NOTE | 2019-09-09 13:01 | Communication Note ---
Date of Service: September 09, 2019 Spoke with patient's daughter Asa by phone and updated her on situation with mother's post op bleed and immediate managment with transfusion, fluid resuscitation, central line placement and return to operating room. She is understanding of everything going on and mentioned Dr. Madsen also called and updated her. Will make sure she stays appraised of situation.
[2019-09-09] MEDS ORDERED: MIDAZOLAM HCL 5 MG/ML 1 ML VIAL IV STA (13:04)
[2019-09-09] MEDS: PHENYLEPHRINE HCL 20 MG in DEXTROSE 5% 500 ML IV SCH ×2 (13:08→22:10)
[2019-09-09] MEDS ORDERED: CEFAZOLIN 250 MG/ML 1 GM VIAL ONE (13:11)
[2019-09-09 13:32] LABS: Fibrinogen 289 mg/dl (184-400)
--- NOTE | 2019-09-09 13:35 | Communication Note ---
Date of Service: September 09, 2019 Critical CARE addendum: POCUS: Ultrasound of the abdomen showed free fluid in the hepatorenal recess as well as right sub-diaphragm about the liver, free fluid was also appreciated on the left splenorenal recess and below the diaphragm on the left side. Minimal fluid appreciated in the left lower quadrant. No fluid appreciated in the right lower quadrant. Urinary bladder was full. Heart: Good ejection fraction, hyperdynamic heart, minimal pericardial effusion, RVOT normal in size. Lungs: No pleural effusion appreciated bilaterally. No B-lines anteriorly minimal B-lines posteriorly bilaterally Please look at the imaging.
--- NOTE | 2019-09-09 13:38 | Procedure Note ---
Procedure Note Date of Service September 09, 2019 INTUBATION PROCEDURE NOTE: Attending: Dr Felipe Hernandez MD Patient was evaluated and plan to intubate was made for airway protection. Sedative agent used: 2 mg midazolam Paralysis agent used: None Emergent consent was implied given patients rapidly declining clinical status and need for airway protection. The patient was prepared in the appropriate fashion. The patient was easily pre-oxygenated by using [id number] ventilation. With help of direct laryngoscope grade 2 vocal cords were visualized and 7 [place] ETT was introduced on second attempt to 23 cm at the lip. The stylette was removed and balloon was inflated with 10mL of air. Appropriate Colorimetric change was appreciated for at least 10 breaths. Bilateral chest rise and breath sounds were appreciated without air sounds in the epigastrium. Patient tolerated the procedure well and there were no immediate complications. Chest Xray to follow for confirming placement. Coding CPT Codes Resuscitation - Resuscitation: 56156 Endotracheal Intubation, emergency ([id number]) Ventilator Management - Ventilator Managment: [id number] Ventilation assist and management; Hospital inpt/obs, intl day ([id number])
--- NOTE | 2019-09-09 13:41 | Procedure Note ---
Procedure Note Date of Service September 09, 2019 Procedure: Inserting ultrasound-guided central fusing line inspector: Dr. Felipe Hernandez Indication: Hypotension Consent: Emergent Anesthesia: 1% lidocaine without epinephrine local. Procedure: Consent was verified and timeout performed. Appropriate imaging studies were reviewed prior to the procedure. Under aseptic and sterile condition, right IJ vein was accessed under direct ultrasound guidance. Guidewire was confirmed to be within the lumen of vein with the help of ultrasound. Catheter was introduced via Seldinger technique. Guide a wire was removed. Good non-pulsatile blood flow was appreciated from all the ports. The catheter was placed at 16 cm and sutured in place. BioPatch was applied to the catheter and a sterile Tegaderm dressing was applied over the catheter with careful attention to sterility. Lung sliding was appreciated post procedure with the help ultrasound. Chest x-ray to follow Patient tolerated the procedure well. Blood loss: Less than 2 cc Complications: None Coding CPT Codes Pulmonary/Thoracic - Pulmonary and Thoracic: 23372 US, Chest, real time with imaging documentation ([id number]) Tubes, Drains, and Vasc Access - Tubes, Drains, and Vasc Access: [id number] Place catheter in vein superior or inferior vena cava ([id number]) Tubes, Drains, and Vasc Access - Tubes, Drains, and Vasc Access: [id number] Ultrasound Guidance For Vascular ([id number])
--- NOTE | 2019-09-09 13:44 | Hospitalist Progress Note ---
Date of Service September 09, 2019 Assessment & Plan (1) Nausea and vomiting: Presented with Anorexia, nausea, and vomiting after colon resection for colon cancer. H/O Caroli's disease --CT ABD:No abscess. No bowel obstruction. Mild left abdominal infiltration which is likely postsurgical. Pneumobilia. A few locules of gas within the gallbladder which is likely related. Minimal gallbladder distention without pericholecystic infiltration. 2.4 x 1.6 cm subcapsular segment 8 hypodensity. In part, this could reflect ductal dilatation. This is suboptimally assessed on this unenhanced exam and comparison with prior imaging studies, if available, is recommended. If no priors, a nonemergent MRI of the liver is recommended. Marked left renal atrophy. No hydronephrosis. --Gall Bladder USD:Stone versus sludge ball within the gallbladder. Mild gallbladder distention. No sonographic Sierra sign. No evidence for acute cholecystitis by sonography. Pneumobilia. No biliary dilatation. --HIDA Scan:Nonvisualization of the gallbladder at 60 minutes. There is delayed visualization of the gallbladder following morphine administration. This indicates patency of the cystic duct, and could indicate biliary dysfunction/chronic cholecystitis. Clinical correlation will be required. --Normal Recent EGD --Blood Cx: No growth to date --Continue IV zosyn for now --Received IV Fluids --Appreciate GI, Surgery Input --Continue parenteral nutrition due to poor oral intake --Plavix held for now --Could not complete gastric emptying study due to emesis --S/P laparoscopic cholecystectomy on 09/09/19 Acute hemorrhagic shock Acute blood loss anemia Likely will need to go to OR emergently Continue IV fluids, pressors, PRBCs Appreciate human anatomy teacher help On IV Zosyn empirically Intubated emergently Surgery team is aware Monitor CBC Acute metabolic encephalopathy Acute Metabolic/Lactic acidosis Secondary to above Monitor Persistent leukocytosis Blood, urine cultures negative Chest x-ray:No acute process. No obvious source of infection Consider ID evaluation if needed Monocytosis noted on differential Peripheral smear: Consistent with nonspecific normochromic, normocytic anemia with monocytosis. Not suggestive of myelodysplastic syndrome or myeloproliferative disorder or hemolytic anemia. WBC count trending down (2) Acute kidney injury superimposed on CKD: EDYTA on CKD IV Likely due to dehydration from poor oral intake Baseline Cr: 1.8 -2.0 Cr: 2.5 today Losartan held Appreciate Nephrology Input Monitor renal function Avoid Nephrotoxic agents as able Receiving 2.3 L through parenteral nutrition--Hold for now (3) Hypertension: Hold IV hydralazine, Doxazosin, Losartan, amlodipine, metoprolol due to shock Appreciate Nephrology Input (4) GERD (gastroesophageal reflux disease): Continue Pepcid (5) Lupus: Stable (6) DVT prophylaxis: Hold anticoagulation due to hemorrhagic shock (7) Discharge planning issues: Primary care follow-up with Dr. Beasley. GI follow-up with [facility]. Subjective Patient is seen and examined at bedside Post OP Patient had laparoscopic cholecystectomy this morning Patient very somnolent, hypotensive postoperatively Code purple was called Patient received IV normal saline bolus and IV Narcan Unable to provide much history secondary to reduced consciousness Stat labs suggestive of acute blood loss anemia Patient is transferred to ICU for further management. Plan to be intubated, started on pressors and transfuse PRBCs Discussed with human anatomy teacher. Appreciate help Updated patient's daughter over the phone. Review of Systems Review of Systems: Unobtainable due to reduced consciousness Physical Exam Physical Exam: Physical Exam: Vitals signs as noted above General Appearance:Moderately built and nourished, Somnolent Head: normocephalic, Atraumatic Eyes: normal inspection, + Pallor Neck: supple, Trachea midline Respiratory/Chest: Normal breath sounds, Basal Crackles Cardiovascular: S1, S2, +systolic murmur Abdomen/GI:Soft, mild tender, Bowel sounds present Extremities/Musculoskelatal:normal inspection, no edema Neurologic/Psych: Somnolent, unable to perform complete neurological exam Skin: normal color, warm Results & Data Vital Signs (Past 12 Hours) Vital Signs Temp Pulse Pulse Pulse Pulse Resp BP 09/09/19 12:47 36.4 C L 81 20 136/52 L 09/09/19 12:46 82 21 136/52 L 09/09/19 12:43 36.4 C L 84 19 114/48 L 09/09/19 12:41 86 114/48 L 09/09/19 12:36 95 H 82/43 L 09/09/19 12:31 89 95/38 L 09/09/19 12:30 89 09/09/19 12:26 93 H 28 H 89/40 L 09/09/19 12:25 92 H 29 H 93/41 L 09/09/19 12:21 90 24 88/41 L 09/09/19 12:16 83 26 H 99/38 L 09/09/19 12:15 82 27 H 96/39 L 09/09/19 12:13 76 26 H 99/40 L 09/09/19 12:11 72 29 H 101/38 L 09/09/19 12:06 72 27 H 89/38 L 09/09/19 12:01 74 31 H 92/37 L 09/09/19 12:00 74 31 H 09/09/19 11:59 75 30 H 90/36 L 09/09/19 11:45 75 09/09/19 10:35 36.4 C L 73 09/09/19 10:09 36.4 C L 77 16 09/09/19 09:55 37.1 C 74 16 09/09/19 09:40 37.0 C 76 18 09/09/19 09:30 78 18 09/09/19 09:20 79 18 09/09/19 09:10 86 18 09/09/19 09:00 37.6 C H 94 H 18 09/09/19 06:54 69 09/09/19 06:48 37.4 C 73 73 18 09/09/19 06:02 36.6 C 71 20 09/09/19 03:16 37.2 C 75 18 09/09/19 01:38 91 H BP Pulse Ox 09/09/19 12:47 100 09/09/19 12:46 100 09/09/19 12:43 100 09/09/19 12:41 100 09/09/19 12:36 100 09/09/19 12:31 100 09/09/19 12:30 100 09/09/19 12:26 100 09/09/19 12:25 100 09/09/19 12:21 100 09/09/19 12:16 100 09/09/19 12:15 100 09/09/19 12:13 100 09/09/19 12:11 100 09/09/19 12:06 100 09/09/19 12:01 100 09/09/19 12:00 100 09/09/19 11:59 100 09/09/19 11:45 09/09/19 10:35 86/46 L 98 09/09/19 10:09 81/47 L 98 09/09/19 09:55 92/54 L 98 09/09/19 09:40 109/47 L 99 09/09/19 09:30 109/47 L 99 09/09/19 09:20 111/55 L 100 09/09/19 09:10 143/57 H 99 09/09/19 09:00 181/59 H 99 09/09/19 06:54 09/09/19 06:48 171/77 H 96 09/09/19 06:02 168/51 H 94 09/09/19 03:16 161/60 H 94 09/09/19 01:38 180/65 H Laboratory Results Short CBC 09/09/19 Range/Units 11:37 WBC 11.08 H (4.8-10.8) K/uL Hgb 4.6 L* (12.0-16.0) g/dL Hct 14.2 L* (37-47) % Plt Count 220 (130-400) K/uL BMP 09/09/19 11:37 Sodium 135 L Potassium 4.7 D Chloride 103 Carbon Dioxide 21 BUN 42 H Creatinine 2.55 H Glucose 250 H Calcium 7.2 L D Liver Function 09/09/19 Range/Units 11:37 Total Bilirubin 0.4 (0.2-1) mg/dl AST 95 H (15-37) U/L ALT 57 (12-78) U/L Alkaline Phosphatase 75 (45-117) U/L Albumin 1.3 L (3.4-5.0) gm/dl (1) Hypertension Hypertension type: essential hypertension Qualified Code(s): I10 - Essential (primary) hypertension
[2019-09-09] MEDS ORDERED: TRANEXAMIC ACID / 0.7% NACL 1,000 MG/100 ML BAG IV SCH ×2 (13:45→15:00)
--- NOTE | 2019-09-09 14:22 | Anesthesiology Progress Note ---
Date of Service September 09, 2019 Anesthesia Post Procedure Vital Signs Vital Signs: Temp Pulse Pulse Pulse Pulse Resp BP 09/09/19 12:47 36.4 C L 81 20 136/52 L 09/09/19 12:46 82 21 136/52 L 09/09/19 12:43 36.4 C L 84 19 114/48 L 09/09/19 12:41 86 114/48 L 09/09/19 12:36 95 H 82/43 L 09/09/19 12:31 89 95/38 L 09/09/19 12:30 89 09/09/19 12:26 93 H 28 H 89/40 L 09/09/19 12:25 92 H 29 H 93/41 L 09/09/19 12:21 90 24 88/41 L 09/09/19 12:16 83 26 H 99/38 L 09/09/19 12:15 82 27 H 96/39 L 09/09/19 12:13 76 26 H 99/40 L 09/09/19 12:11 72 29 H 101/38 L 09/09/19 12:06 72 27 H 89/38 L 09/09/19 12:01 74 31 H 92/37 L 09/09/19 12:00 74 31 H 09/09/19 11:59 75 30 H 90/36 L 09/09/19 11:45 75 09/09/19 10:35 36.4 C L 73 09/09/19 10:09 36.4 C L 77 16 09/09/19 09:55 37.1 C 74 16 09/09/19 09:40 37.0 C 76 18 09/09/19 09:30 78 18 09/09/19 09:20 79 18 09/09/19 09:10 86 18 09/09/19 09:00 37.6 C H 94 H 18 09/09/19 06:54 69 09/09/19 06:48 37.4 C 73 73 18 09/09/19 06:02 36.6 C 71 20 09/09/19 03:16 37.2 C 75 18 09/09/19 01:38 91 H 09/09/19 00:53 63 09/08/19 22:08 37.2 C 65 19 09/08/19 21:46 09/08/19 20:11 69 09/08/19 18:54 37.4 C 19 L 67 19 09/08/19 17:06 09/08/19 15:28 68 09/08/19 14:56 36.9 C 67 18 BP BP Pulse Ox 09/09/19 12:47 100 09/09/19 12:46 100 09/09/19 12:43 100 09/09/19 12:41 100 09/09/19 12:36 100 09/09/19 12:31 100 09/09/19 12:30 100 09/09/19 12:26 100 09/09/19 12:25 100 09/09/19 12:21 100 09/09/19 12:16 100 09/09/19 12:15 100 09/09/19 12:13 100 09/09/19 12:11 100 09/09/19 12:06 100 09/09/19 12:01 100 09/09/19 12:00 100 09/09/19 11:59 100 09/09/19 11:45 09/09/19 10:35 86/46 L 98 09/09/19 10:09 81/47 L 98 09/09/19 09:55 92/54 L 98 09/09/19 09:40 109/47 L 99 09/09/19 09:30 109/47 L 99 09/09/19 09:20 111/55 L 100 09/09/19 09:10 143/57 H 99 09/09/19 09:00 181/59 H 99 09/09/19 06:54 09/09/19 06:48 171/77 H 96 09/09/19 06:02 168/51 H 94 09/09/19 03:16 161/60 H 94 09/09/19 01:38 180/65 H 09/09/19 00:53 09/08/19 22:08 156/65 H 97 09/08/19 21:46 155/59 H 09/08/19 20:11 167/62 H 09/08/19 18:54 161/73 H 96 09/08/19 17:06 183/64 H 09/08/19 15:28 09/08/19 14:56 151/66 H 95 Transfer of Care Handoff Completed per policy Notes Mental Status: see notes below (SEdated on vent) Patient Amnestic to Procedure: Yes Nausea / Vomiting: adequately controlled Pain: adequately controlled Airway Patency, RR, SpO2: see Notes below (Intubated) BP & HR: stable & adequate Hydration State: stable & adequate Anesthetic Complications: no major complications apparent and Pt Satisfied with anesthetic care
--- NOTE | 2019-09-09 14:22 | Operative Report ---
PG Post Operative Report Pre & Post Diagnosis Operation Date: 09/09/19 07:15 Pre-Op Diagnosis: Gallstones Post-Op Diagnosis: Gallstones Operation Date: 09/09/19 09:00 Pre-Op Diagnosis: Post op bleeding Post-Op Diagnosis: Port Site Bleed I identified the patient and participated in the time-out.: Yes Procedure Operation Date: 09/09/19 07:15 Actual Procedures p Laparoscopic Cholecystectomy - Ronny Madsen DO Operation Date: 09/09/19 09:00 Actual Procedures p Diagnostic Laparoscopy, Control of Bleeding, Abdominal Washout - Ronny Madsen DO Surgeon Ronny Madsen DO Senior Merchandiser niki Obrien Estimated Blood Loss 1,300 Findings Consistent with Post-Op Diagnosis Fluids 5 units PRBCs 4 units of FFP 2 units of platelets. Specimens none Drains 19 william Description of Procedure The patient was brought to the operating room from the ICU emergently. She was already intubated. A Fischer catheter was placed and the abdomen was sterilely prepped and draped in usual fashion. I reopened her periumbilical incision with 11 blade scalpel. I then used suture scissors to take out the 0 Vicryl suture. We used a Yankauer suction to immediately start suctioning out abdominal blood. Fortunately we immediately noted a brisk bleed from the rectus muscle right at this port site. I was able to grasp it with a hemostat and use an 0 Vicryl stitch in [id number] fashion to control the bleeding. We then continued to suction using a Yankauer device. Next I placed a 12 mm Baeza trocar and insufflated the abdomen to 20 mm. Laparoscope was inserted. We placed another 12 mm port in the epigastric area as well as a right upper abdominal 5 mm trocar through her old incisions. The next half hour was spent simply suctioning out old blood clot. There were pockets in the right upper quadrant left upper quadrant and pelvis. We continued rotating the patient and suctioning and irrigating as we went. Eventually we were able to get the majority of the blood out. There was no evidence of bleeding in the gallbladder fossa. No evidence of bleeding elsewhere. We looked back at the camera port site and the bleeding was in fact controlled with the 0 Vicryl stitch I placed at the beginning of the procedure. We did a final washout. 19 Citizen Of [place] William drain was placed in the right upper quadrant and brought out through 1 of the port sites and secured to the skin using 2-0 nylon. The patient's blood pressure and heart rate did stabilize throughout the procedure. A total blood product of 5 units of packed red cells 4 units of FFP and 2 units of platelets were given. The patient was able to be weaned off of her freddy-Synephrine completely and they were able to back down on the Levophed. We removed all the trochars and desufflated the abdomen. The fascia the camera port was closed using 0 Vicryl in a [id number] fashion. The wounds were all irrigated and closed using 4-0 Monocryl. Marcaine was injected around them for postoperative analgesia and skin glue used as a dressing. The patient was transferred to the intensive care unit in guarded condition. I attest to the content of the Intraoperative Record and any orders documented therein. Any exceptions are noted below.
--- NOTE | 2019-09-09 14:38 | XRay Report ---
XR chest 1V portable HISTORY: 73 years-old Female Central line placement acute respiratory failure COMPARISON: Chest radiograph 09/05/2019 TECHNIQUE: Portable AP view of the chest FINDINGS: Endotracheal tube overlies the midline, 9 mm superior to the jackelin coursing towards the right mainst em bronchus. Right IJ central venous catheter has been placed, distal tip terminating in the expected location of the superior cavoatrial junction. A catheter is noted with distal tip overlying the righ t lung base. Moderate subcutaneous emphysema of the right chest wall. Surgical clips project over the abdominal right upper quadrant. Multiple telemetry leads are coiled over the chest. No definite pneu mothorax identified. Cardiac silhouette is mildly enlarged. The lungs are hypoinflated. Calcified plaque of the thoracic a ortic arch. Blunting of the costophrenic angles with left basilar opacities. Mild pulmonary vascular congestion. Degenerative changes of the shoulders and spine. IMPRESSION: 1. Endotracheal tube overlies the midline, 9 mm superior to the jackelin. This could be retracted 2 to 3 cm. 2. Right IJ central venous catheter distal tip terminates in the expected location of the superior ca voatrial junction. No postprocedural pneumothorax identified. 3. Catheter projects over the right lung base. 4. Moderate subcutaneous emphysema of the right chest wall. 5. Mild hypoinflation with left basilar opacities suggestive of atelectasis or pneumonia. ACT 112: Negative or not required by law. The above report was generated using voice recognition software. It may contain grammatical, syntax o r spelling errors. Electronically signed by: Orlando Altamirano M.D. 09/09/2019 2:37 PM
[2019-09-09] MEDS ORDERED: fentaNYL citrate 100 MCG/2 ML VIAL IV PRN (15:12)
[2019-09-09] MEDS ORDERED: Nursing to Pharmacy Communication ONE (15:25)
[2019-09-09] MEDS: SERTRALINE HCL 50 MG TABLET PO SCH (15:35)
[2019-09-09] MEDS: FAMOTIDINE 20 MG TAB PO SCH ×2 (15:35→21:01)
[2019-09-09] MEDS: MEGESTROL ACETATE 40 MG TAB PO SCH (15:35)
[2019-09-09 15:38] LABS: Fibrinogen 306 mg/dl (184-400); INR 1.1 (0.9-1.1); Partial Thromboplastin Time 27.4 Seconds (21.0-31.0); Prothrombin Time 11.4 Seconds (9.0-12.0)
[2019-09-09 15:47] LABS: Albumin Level 2.4 gm/dl (3.4-5.0); BUN Creatinine Ratio 15.8 (10-20); Calcium 7.1 mg/dl (8.5-10.1); Creatinine Clr Calc Pharmacy 20.1 ml/min; Est GFR (African American) 22.7; Est GFR (Non-African American) 19.6; Potassium 4.2 mmol/L (3.5-5.1)
[2019-09-09] MEDS: fentaNYL DRIP 1,250 MCG/250 ML BAG IV SCH (15:49)
[2019-09-09 15:59] LABS: Hematocrit (blood only) 32.1 % (37-47); Mean Corpuscular Hemoglobin 29.9 pg (25-34); Mean Corpuscular Hgb Conc 34.3 g/dL (32-36); Mean Corpuscular Volume 87.2 fL (80-100); Mean Platelet Volume 9.3 fL (7.4-10.4); Platelet Count 200 K/uL (130-400); RDW Coefficient of Variation 14.6 % (11.5-14.5); RDW Standard Deviation 46.2 fL (36.4-46.3); Red Blood Count 3.68 M/uL (4.2-5.4); White Blood Count 25.98 K/uL (4.8-10.8)
[2019-09-09 16:00] LABS: Albumin Globulin Ratio 0.7 (0.9-2); Bilirubin,Total 1.2 mg/dl (0.2-1); Globulin 3.3 gm/dl (2.5-4.0); Total Protein 5.7 gm/dl (6.4-8.2)
[2019-09-09 16:04] LABS: ALC (manual) 0.68 K/uL (1.2-3.4); ANC (manual) 22.81 K/uL (1.4-6.5); Blast # (manual) 0.23 K/uL (0-0); Blast Cells % (manual) 0.9 %; Lymphocytes # (manual) 0.68 K/uL (1.2-3.4); Lymphocytes % (manual) 2.6 %; Metamyelocytes # (manual) 0.91 K/uL (0-0); Metamyelocytes % (manual) 3.5 %; Monocytes # (manual) 1.35 K/uL (0.11-0.59); Monocytes % (manual) 5.2 %; Neutrophils # (manual) 22.81 K/uL (1.4-6.5); Neutrophils % (manual) 87.8 %
--- NOTE | 2019-09-09 16:11 | XRay Report ---
KUB CLINICAL HISTORY: Enteric tube placement. FINDINGS: An AP supine abdominal radiograph is correlated with abdominal CT dated 09/04/2019. An ente bonny tube has been placed. The tip projects below the diaphragm over the mid to distal stomach. There is no radiographic evidence of bowel obstruction. Cholecystectomy clips are seen in the right upper q uadrant. No evidence of intraperitoneal free air is seen on this supine image. No abnormal abdominal calcifications are identified. The skeletal structures are osteopenic. The bony structures are intact as visualized. A pleural drain is present at the right lung base, and subcutaneous emphysema is note d along the right chest wall. The tip of a central venous catheter projects over the right atrium. Bi basilar consolidation is noted. IMPRESSION: An enteric tube projects below the diaphragm over the stomach. Electronically signed by: Chato Siddiqui M.D. 09/09/2019 4:10 PM
[2019-09-09] MEDS: CYANOCOBALAMIN 500 MCG TABLET (VITAMIN B-12) PO SCH (16:23)
[2019-09-09] MEDS: AMLODIPINE BESYLATE 5 MG TAB PO SCH (16:23)
[2019-09-09 21:00] LABS: Hemoglobin 10.1 g/dL (12.0-16.0)
[2019-09-09 21:16] LABS: BUN Creatinine Ratio 18.9 (10-20); Calcium 7.2 mg/dl (8.5-10.1); Creatinine Clr Calc Pharmacy 21.2 ml/min; Est GFR (African American) 24.2; Est GFR (Non-African American) 20.9
[2019-09-09] MEDS ORDERED: SODIUM CHLORIDE 0.9% 1000ML 1,000 ML IV SCH (22:15)
[2019-09-10] MEDS: METOCLOPRAMIDE HCL 10 MG TABLET PO SCH ×5 (01:07→22:30)
[2019-09-10] MEDS: HYDROmorphone INJ 0.5 MG/0.5 ML SYR IV PRN ×3 (03:31→22:31)
[2019-09-10 04:51] LABS: Hematocrit (blood only) 27.3 % (37-47); Hemoglobin 9.6 g/dL (12.0-16.0); Mean Corpuscular Hemoglobin 29.5 pg (25-34); Mean Corpuscular Hgb Conc 35.2 g/dL (32-36); Mean Platelet Volume 9.4 fL (7.4-10.4); Platelet Count 186 K/uL (130-400); RDW Coefficient of Variation 15.4 % (11.5-14.5); RDW Standard Deviation 47.5 fL (36.4-46.3); Red Blood Count 3.25 M/uL (4.2-5.4); White Blood Count 17.76 K/uL (4.8-10.8)
[2019-09-10 05:10] LABS: BUN Creatinine Ratio 18.1 (10-20); Calcium 7.2 mg/dl (8.5-10.1); Creatinine Clr Calc Pharmacy 21.4 ml/min; Est GFR (African American) 24.5; Est GFR (Non-African American) 21.1
[2019-09-10] MEDS: PHENYLEPHRINE HCL 20 MG in DEXTROSE 5% 500 ML IV SCH ×2 (05:33→16:42)
--- NOTE | 2019-09-10 06:50 | XRay Report ---
XR chest 1V portable CLINICAL HISTORY: f/u COMPARISON STUDY: Chest radiograph September 09, 2019. FINDINGS: Tip of endotracheal tube is 2.3 cm above the jackelin. Tip of nasogastric tube is within the body of the stomach. Tip of right internal jugular central line projects over the right atrium. Subcu taneous gas within the right chest wall has diminished. There is no pneumothorax. There is pulmonary vascular congestion with bibasilar opacities. There are surgical clips within the abdomen. A catheter /drain projects over the right upper quadrant/right lung base. This is unchanged. IMPRESSION: 1. Satisfactory positioning of lines and tubes. 2. Pulmonary vascular congestion with bibasilar opacities may reflect atelectasis or consolidation. ACT 112: Negative or not required by law. Electronically signed by: Mekhi Alacron M.D. 09/10/2019 6:49 AM
--- NOTE | 2019-09-10 07:19 | Critical Care Progress Note ---
Date of Service September 10, 2019 Assessment & Plan (1) Hemorrhagic shock: -- S/p Shock likely hemorrhagic s/p OR Bedside US showed free fluid in the abdomen, status post reevaluation for bleeding and cauterization of the bleeding vessel. Off pressors as of evening 09/09/2019 Patient got a total of 5 units PRBC, 2 units platelets, FFP -- VDRF sec to Metabolic encephalopathy sec to shock, encephalopathy improved. Continue with ventilatory support Keep RASS -1 Daily sedation holidays and SBT's Chlorhexidine mouthwash --History of acalculus cholecystitis with pneumobilia Status post cholecystectomy 09/09 2019 Continue with antibiotics -- EDYTA on CKD sec to shock monitor BUN/Cr, improving -- Severe protein calorie malnutrition Albumin only 1.3 patient on TPN. NPO for the time being Will start NGT feeds once cleared by Surgeon. 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 Give 1 dose of Lasix 40 mg IV We will get in touch with surgery to see when can we restart her p.o. medications. (2) Metabolic encephalopathy: (3) EDYTA (acute kidney injury): Subjective Patient seen and examined at bedside. No acute distress, no adverse events overnight. Status post repeat OR on 09/09/2019 where they found a bleeding vessel and it was cauterized. Patient got total of 5 units of PRBC and 2 units of platelets while in the OR. Post OR hemoglobin was 10 point 1 repeat hemoglobin today is 9.6. This is likely equalization. Patient is awake alert following commands. Moving all extremities. Denies any chest pain, no shortness of breath, no belly pain, and no headache. Plateau at the time of examination was 22. Maximal inspiratory pressure was - 37. Review of Systems Review of Systems: All systems reviewed & are unremarkable except as noted in HPI & below Physical Exam Physical Exam: Constitutional: Sleeping, Rass -1 HEENT: PERRLA, EOMI, positive ETT Respiratory system: Mild crackles bilateral lower lobes, decreased air entry bilaterally, no wheeze, no rhonchi CVS: S1-S2 positive, positive 2 out of 6 systolic ejection murmur appreciated best at the aorta Abdomen: Soft, nontender, nondistended, positive bowel sounds x4, positive b ruising appreciated bilaterally, laparoscopic incision site intact. Extremities: +2 pulses bilaterally radialis/ dorsalis pedis, no cyanosis, no edema Neuro: Rass -1, moving all extremities, breathing over the vent, positive pupillary reflex Psych: Normal mood and affect G/U: Positive Fischer Positive right IJ Skin: no rashes, warm and dry Lymphatic: no cervical or axillary lymphadenopathy Results & Data Vital Signs (Past 12 Hours) Vital Signs Pulse Resp BP Pulse Ox 09/10/19 06:26 81 162/61 H 94 09/10/19 05:26 73 147/55 H 100 09/10/19 05:17 75 14 100 09/10/19 04:26 74 149/58 H 96 09/10/19 03:42 77 153/61 H 98 09/10/19 03:12 80 158/63 H 95 09/10/19 02:46 78 14 100 09/10/19 02:24 87 160/70 H 100 09/10/19 01:54 75 152/60 H 98 09/10/19 01:24 81 162/59 H 91 09/10/19 01:19 80 159/60 H 89 L 09/10/19 00:54 80 159/60 H 95 09/10/19 00:26 83 14 92 09/10/19 00:09 83 173/66 H 99 09/09/19 23:54 79 151/63 H 99 09/09/19 23:39 78 156/61 H 100 09/09/19 23:24 76 143/57 H 100 09/09/19 23:10 79 177/65 H 100 09/09/19 22:54 75 148/57 H 100 09/09/19 22:39 78 153/58 H 97 09/09/19 22:24 75 156/61 H 95 09/09/19 22:09 77 152/59 H 99 09/09/19 21:54 78 148/58 H 97 09/09/19 21:39 80 171/64 H 98 09/09/19 21:24 74 157/59 H 100 09/09/19 21:09 74 146/59 H 100 09/09/19 20:54 75 162/62 H 100 09/09/19 20:39 73 142/64 H 100 09/09/19 20:24 75 152/59 H 100 09/09/19 20:09 74 148/57 H 100 09/09/19 19:59 75 14 100 09/09/19 19:54 75 144/57 H 100 09/09/19 19:39 75 143/56 H 99 09/09/19 19:24 85 124/69 97 09/10/19 04:28 09/10/19 04:28 Coding Level of Care Code Critical Care 1st 30-74 mins Diagnoses Hemorrhagic shock R57.8 Metabolic encephalopathy G93.41 EDYTA (acute kidney injury) N17.9 Time Spent (min) 45
[2019-09-10] MEDS ORDERED: FUROSEMIDE 40 MG in SYRINGE 0 ML IV ONE (07:45)
[2019-09-10] MEDS: MEGESTROL ACETATE 40 MG TAB PO SCH (08:21)
[2019-09-10] MEDS: FAMOTIDINE 20 MG TAB PO SCH ×2 (08:21→21:02)
[2019-09-10] MEDS: SERTRALINE HCL 50 MG TABLET PO SCH (08:22)
[2019-09-10] MEDS: PIPERACILLIN/TAZOBACTAM 3.375 GM in DEXTROSE 5% 100 ML IV SCH ×2 (09:13→17:25)
[2019-09-10] MEDS: fentaNYL DRIP 1,250 MCG/250 ML BAG IV SCH (09:13)
--- NOTE | 2019-09-10 11:12 | Hospitalist Progress Note ---
Date of Service September 10, 2019 Assessment & Plan (1) Hemorrhagic shock: (2) Nausea and vomiting: Presented with Anorexia, nausea, and vomiting after colon resection for colon cancer. H/O Caroli's disease -CT ABD:No abscess. No bowel obstruction. Mild left abdominal infiltration which is likely postsurgical. Pneumobilia. A few locules of gas within the gallbladder which is likely related. Minimal gallbladder distention without pericholecystic infiltration. 2.4 x 1.6 cm subcapsular segment 8 hypodensity. In part, this could reflect ductal dilatation. This is suboptimally assessed on this unenhanced exam and comparison with prior imaging studies, if available, is recommended. If no priors, a nonemergent MRI of the liver is recommended. Marked left renal atrophy. No hydronephrosis. -Gall Bladder USD:Stone versus sludge ball within the gallbladder. Mild gallbladder distention. No sonographic Sierra sign. No evidence for acute cholecystitis by sonography. Pneumobilia. No biliary dilatation. -HIDA Scan:Nonvisualization of the gallbladder at 60 minutes. There is delayed visualization of the gallbladder following morphine administration. This indicates patency of the cystic duct, and could indicate biliary dysfunction/chronic cholecystitis. Clinical correlation will be required. -Normal Recent EGD -Status post laparoscopic cholecystectomy on 09/09/2019 complicated by postop acute hemorrhagic shock that was stabilized by a second OR visit Hemoglobin dropped to 4.6 yesterday. Required 5 PRBC and 2 platelets, FFP. Hemoglobin this morning is 9.6. Hemodynamically stable and off pressors We will continue to monitor hemoglobin and hemodynamics Surgery team is on board -Continue parenteral nutrition for now -We will reassess p.o. intake when able now that patient has been extubated -Plavix still on hold -Could not complete gastric emptying study due to emesis -Continue IVF -Blood Cx: No growth to date. Procal was 0.33. Currently on IV Zosyn. Leukocytosis peaked at 25 yesterday [likely reactive in the setting of aforementioned events yesterday], currently 17.76 this morning. Will reassess tomorrow and consider discontinuing antibiotics Blood, urine cultures negative Chest x-ray:No acute process. No obvious source of infection Consider ID evaluation if needed Monocytosis noted on differential Peripheral smear: Consistent with nonspecific normochromic, normocytic anemia with monocytosis. Not suggestive of myelodysplastic syndrome or myeloproliferative disorder or hemolytic anemia. Will continue to monitor WBC (3) Metabolic encephalopathy: Acute metabolic encephalopathy secondary to hemorrhagic shock Encephalopathy is resolved as noted above Required intubation. Extubated successfully this morning We will monitor in ICU for now (4) Acute kidney injury superimposed on CKD: EDYTA on CKD IV Likely due to dehydration from poor oral intake Baseline Cr: 1.8 -2.0 Cr: 2.21 today Losartan still on hold Nephrology on board Monitor renal function Avoid Nephrotoxic agents (5) Hypertension: Hypotension has resolved. Blood pressure has been stable. We will continue to monitor and gradually resume antihypertensives as appropriate If blood pressure remains stable and elevated, will first resume hydralazine IV as needed for SBP above 160 until p.o. medications can be resumed (6) GERD (gastroesophageal reflux disease): Continue Pepcid (7) Lupus: Stable (8) DVT prophylaxis: Hold anticoagulation due to hemorrhagic shock (9) Discharge planning issues: Primary care follow-up with Dr. Beasley. GI follow-up with [facility]. Subjective 73-year-old woman with history of lupus, hypertension, recent colon cancer status post resection in July 2019, CKD who was initially admitted for nausea and vomiting, hand cholecystectomy yesterday [Plavix had been held for 7 days prior to surgery] complicated by post surgery hemorrhagic shock, requiring 5 PRBC and 2 platelets and diagnostic laparoscopy for bleeding control yesterday. Patient was intubated for airway protection prior to second OR. Patient was seen and examined this morning immediately after extubation Patient denies any chest pain, shortness of breath, cough Denies any abdominal pain. Review of Systems Review of Systems: All systems reviewed and unremarkable except for mentioned above. Physical Exam Physical Exam: General: Patient was just extubated prior to my exam, no acute distress Eyes: PERRL, conjunctivae normal, not pale, anicteric sclerae, EOM intact bilaterally ENMT: External ear and nose normal, oropharynx normal Neck: Normal visual inspection, no tracheal deviation Respiratory: Normal respiratory effort, no respiratory distress, Extubated to 3L/min Nasal cannula, reduced air entry both lung bases, mild crackles, no wheezes Cardiovascular: Pulse is RRR. S1 S2 no pedal edema Chest (Breasts): Chest: normal inspection of chest Gastrointestinal (Abdomen): Abdomen is not distended, soft, clean laparoscopic incision sites, bruising noted on left side, non-tender to palpation, no guarding, no palpable hepatosplenomegaly, normal bowel sounds Musculoskeletal: No cyanosis or clubbing Genitourinary: No CVA tenderness. Fischer in situ Skin: No rash noted on gross inspection, No ulcers noted Neurologic: Alert and oriented x 3, No focal weakness, sensation grossly intact Psychiatric: Alert and oriented x 3, euthymic affect Results & Data Vital Signs (Past 12 Hours) Vital Signs Pulse Resp BP Pulse Ox 09/10/19 10:00 82 16 97 09/10/19 09:26 80 16 166/64 H 98 09/10/19 08:26 88 19 169/70 H 98 09/10/19 08:00 95 H 20 97 09/10/19 07:30 78 99 09/10/19 07:26 77 160/64 H 98 09/10/19 07:15 80 13 98 09/10/19 07:00 78 98 09/10/19 06:26 81 162/61 H 94 09/10/19 05:26 73 147/55 H 100 09/10/19 05:17 75 14 100 09/10/19 04:26 74 149/58 H 96 09/10/19 03:42 77 153/61 H 98 09/10/19 03:12 80 158/63 H 95 09/10/19 02:46 78 14 100 09/10/19 02:24 87 160/70 H 100 09/10/19 01:54 75 152/60 H 98 09/10/19 01:24 81 162/59 H 91 09/10/19 01:19 80 159/60 H 89 L 09/10/19 00:54 80 159/60 H 95 09/10/19 00:26 83 14 92 09/10/19 00:09 83 173/66 H 99 09/09/19 23:54 79 151/63 H 99 09/09/19 23:39 78 156/61 H 100 09/09/19 23:24 76 143/57 H 100 09/09/19 23:10 79 177/65 H 100 Laboratory Results Abnormal lab results 09/09/19 09/09/19 09/09/19 Range/Units 11:23 11:37 11:37 WBC 11.08 H (4.8-10.8) K/uL RBC 1.62 L (4.2-5.4) M/uL Hgb 4.6 L* (12.0-16.0) g/dL Hct 14.2 L* (37-47) % RDW Std Deviation 56.2 H (36.4-46.3) fL RDW Coeff of Aurelia 17.7 H (11.5-14.5) % Immature Gran # (Auto) 0.07 H (0.00-0.02) K/uL Neut # (Auto) 8.37 H (1.4-6.5) K/uL Snyder # (Auto) 1.22 H (0.11-0.59) K/uL Neutrophils # (Manual) (1.4-6.5) K/uL Total Absolute Neuts (1.4-6.5) K/uL Lymphocytes # (Manual) (1.2-3.4) K/uL Total Abs Lymphocytes (1.2-3.4) K/uL Monocytes # (Manual) (0.11-0.59) K/uL Metamyelocytes # (Man) (0-0) K/uL Blast Cells # (Man) (0-0) K/uL INR (0.9-1.1) VBG pCO2 (38-50) mmHg Sodium (136-145) mmol/L Chloride (98-107) mmol/L Carbon Dioxide (21-32) mmol/L BUN (7-18) mg/dl Creatinine (0.6-1.2) mg/dl Glucose (70-99) mg/dl POC Glucose 299 H (70-99) Lactate 6.6 H* (0.4-2.0) mmol/L Calcium (8.5-10.1) mg/dl Total Bilirubin (0.2-1) mg/dl AST (15-37) U/L Total Protein (6.4-8.2) gm/dl Albumin (3.4-5.0) gm/dl Albumin/Globulin Ratio (0.9-2) Crossmatch 09/09/19 09/09/19 09/09/19 Range/Units 11:37 11:37 11:40 WBC (4.8-10.8) K/uL RBC (4.2-5.4) M/uL Hgb (12.0-16.0) g/dL Hct (37-47) % RDW Std Deviation (36.4-46.3) fL RDW Coeff of Aurelia (11.5-14.5) % Immature Gran # (Auto) (0.00-0.02) K/uL Neut # (Auto) (1.4-6.5) K/uL Snyder # (Auto) (0.11-0.59) K/uL Neutrophils # (Manual) (1.4-6.5) K/uL Total Absolute Neuts (1.4-6.5) K/uL Lymphocytes # (Manual) (1.2-3.4) K/uL Total Abs Lymphocytes (1.2-3.4) K/uL Monocytes # (Manual) (0.11-0.59) K/uL Metamyelocytes # (Man) (0-0) K/uL Blast Cells # (Man) (0-0) K/uL INR (0.9-1.1) VBG pCO2 34 L (38-50) mmHg Sodium 135 L (136-145) mmol/L Chloride (98-107) mmol/L Carbon Dioxide (21-32) mmol/L BUN 42 H (7-18) mg/dl Creatinine 2.55 H (0.6-1.2) mg/dl Glucose 250 H (70-99) mg/dl POC Glucose (70-99) Lactate (0.4-2.0) mmol/L Calcium 7.2 L D (8.5-10.1) mg/dl Total Bilirubin (0.2-1) mg/dl AST 95 H (15-37) U/L Total Protein 4.1 L (6.4-8.2) gm/dl Albumin 1.3 L (3.4-5.0) gm/dl Albumin/Globulin Ratio 0.5 L (0.9-2) Crossmatch See Detail 09/09/19 09/09/19 09/09/19 Range/Units 11:40 15:10 15:10 WBC 25.98 H D (4.8-10.8) K/uL RBC 3.68 L (4.2-5.4) M/uL Hgb 11.0 L D (12.0-16.0) g/dL Hct 32.1 L (37-47) % RDW Std Deviation (36.4-46.3) fL RDW Coeff of Aurelia 14.6 H (11.5-14.5) % Immature Gran # (Auto) (0.00-0.02) K/uL Neut # (Auto) (1.4-6.5) K/uL Snyder # (Auto) (0.11-0.59) K/uL Neutrophils # (Manual) 22.81 H (1.4-6.5) K/uL Total Absolute Neuts 22.81 H (1.4-6.5) K/uL Lymphocytes # (Manual) 0.68 L (1.2-3.4) K/uL Total Abs Lymphocytes 0.68 L (1.2-3.4) K/uL Monocytes # (Manual) 1.35 H (0.11-0.59) K/uL Metamyelocytes # (Man) 0.91 H (0-0) K/uL Blast Cells # (Man) 0.23 H (0-0) K/uL INR 1.2 H (0.9-1.1) VBG pCO2 (38-50) mmHg Sodium (136-145) mmol/L Chloride (98-107) mmol/L Carbon Dioxide 20 L (21-32) mmol/L BUN 37 H (7-18) mg/dl Creatinine 2.35 H (0.6-1.2) mg/dl Glucose 184 H (70-99) mg/dl POC Glucose (70-99) Lactate (0.4-2.0) mmol/L Calcium 7.1 L (8.5-10.1) mg/dl Total Bilirubin 1.2 H D (0.2-1) mg/dl AST 133 H (15-37) U/L Total Protein 5.7 L D (6.4-8.2) gm/dl Albumin 2.4 L (3.4-5.0) gm/dl Albumin/Globulin Ratio 0.7 L (0.9-2) Crossmatch 09/09/19 09/09/19 09/09/19 Range/Units 15:10 17:17 20:52 WBC (4.8-10.8) K/uL RBC (4.2-5.4) M/uL Hgb 10.1 L (12.0-16.0) g/dL Hct 29.0 L (37-47) % RDW Std Deviation (36.4-46.3) fL RDW Coeff of Aurelia (11.5-14.5) % Immature Gran # (Auto) (0.00-0.02) K/uL Neut # (Auto) (1.4-6.5) K/uL Snyder # (Auto) (0.11-0.59) K/uL Neutrophils # (Manual) (1.4-6.5) K/uL Total Absolute Neuts (1.4-6.5) K/uL Lymphocytes # (Manual) (1.2-3.4) K/uL Total Abs Lymphocytes (1.2-3.4) K/uL Monocytes # (Manual) (0.11-0.59) K/uL Metamyelocytes # (Man) (0-0) K/uL Blast Cells # (Man) (0-0) K/uL INR (0.9-1.1) VBG pCO2 (38-50) mmHg Sodium (136-145) mmol/L Chloride (98-107) mmol/L Carbon Dioxide (21-32) mmol/L BUN (7-18) mg/dl Creatinine (0.6-1.2) mg/dl Glucose (70-99) mg/dl POC Glucose 153 H (70-99) Lactate 5.2 H* (0.4-2.0) mmol/L Calcium (8.5-10.1) mg/dl Total Bilirubin (0.2-1) mg/dl AST (15-37) U/L Total Protein (6.4-8.2) gm/dl Albumin (3.4-5.0) gm/dl Albumin/Globulin Ratio (0.9-2) Crossmatch 09/09/19 09/10/19 09/10/19 Range/Units 20:52 04:28 04:28 WBC 17.76 H (4.8-10.8) K/uL RBC 3.25 L (4.2-5.4) M/uL Hgb 9.6 L (12.0-16.0) g/dL Hct 27.3 L (37-47) % RDW Std Deviation 47.5 H (36.4-46.3) fL RDW Coeff of Aurelia 15.4 H (11.5-14.5) % Immature Gran # (Auto) (0.00-0.02) K/uL Neut # (Auto) (1.4-6.5) K/uL Snyder # (Auto) (0.11-0.59) K/uL Neutrophils # (Manual) (1.4-6.5) K/uL Total Absolute Neuts (1.4-6.5) K/uL Lymphocytes # (Manual) (1.2-3.4) K/uL Total Abs Lymphocytes (1.2-3.4) K/uL Monocytes # (Manual) (0.11-0.59) K/uL Metamyelocytes # (Man) (0-0) K/uL Blast Cells # (Man) (0-0) K/uL INR (0.9-1.1) VBG pCO2 (38-50) mmHg Sodium (136-145) mmol/L Chloride 109 H 110 H (98-107) mmol/L Carbon Dioxide (21-32) mmol/L BUN 42 H 40 H (7-18) mg/dl Creatinine 2.23 H 2.21 H (0.6-1.2) mg/dl Glucose (70-99) mg/dl POC Glucose (70-99) Lactate (0.4-2.0) mmol/L Calcium 7.2 L 7.2 L (8.5-10.1) mg/dl Total Bilirubin (0.2-1) mg/dl AST (15-37) U/L Total Protein (6.4-8.2) gm/dl Albumin (3.4-5.0) gm/dl Albumin/Globulin Ratio (0.9-2) Crossmatch 09/10/19 Range/Units 06:25 WBC (4.8-10.8) K/uL RBC (4.2-5.4) M/uL Hgb (12.0-16.0) g/dL Hct (37-47) % RDW Std Deviation (36.4-46.3) fL RDW Coeff of Aurelia (11.5-14.5) % Immature Gran # (Auto) (0.00-0.02) K/uL Neut # (Auto) (1.4-6.5) K/uL Snyder # (Auto) (0.11-0.59) K/uL Neutrophils # (Manual) (1.4-6.5) K/uL Total Absolute Neuts (1.4-6.5) K/uL Lymphocytes # (Manual) (1.2-3.4) K/uL Total Abs Lymphocytes (1.2-3.4) K/uL Monocytes # (Manual) (0.11-0.59) K/uL Metamyelocytes # (Man) (0-0) K/uL Blast Cells # (Man) (0-0) K/uL INR (0.9-1.1) VBG pCO2 (38-50) mmHg Sodium (136-145) mmol/L Chloride (98-107) mmol/L Carbon Dioxide (21-32) mmol/L BUN (7-18) mg/dl Creatinine (0.6-1.2) mg/dl Glucose (70-99) mg/dl POC Glucose 115 H (70-99) Lactate (0.4-2.0) mmol/L Calcium (8.5-10.1) mg/dl Total Bilirubin (0.2-1) mg/dl AST (15-37) U/L Total Protein (6.4-8.2) gm/dl Albumin (3.4-5.0) gm/dl Albumin/Globulin Ratio (0.9-2) Crossmatch (1) Hypertension Hypertension type: essential hypertension Qualified Code(s): I10 - Essential (primary) hypertension
--- NOTE | 2019-09-10 12:10 | Surgery Progress Note ---
Date of Service pt was extubated this morning, pt is doing better, no abdominal pain, September 10, 2019 Assessment & Plan (1) Gallstones: Gastric Emptying in AM Gallstones may need lap starla if study normal and symptoms continue 09/10/2019 12:09PM S/P lap starla with post-op bleeding, doing better, continue treatment, clear diet will F/U Supervising Physician Co-Signing Physician Notes I have personally seen and examined the patient with LINDSAY Moy. Her note reflects my exam and findings. I agree with her impression and plan. Abnormal HIDA. Surgery is planning starla . Tejas Tapia M.D. Subjective Patient is seen and examined at bedside Post OP Patient had laparoscopic cholecystectomy this morning Patient very somnolent, hypotensive postoperatively Code purple was called Patient received IV normal saline bolus and IV Narcan Unable to provide much history secondary to reduced consciousness Stat labs suggestive of acute blood loss anemia Patient is transferred to ICU for further management. Plan to be intubated, started on pressors and transfuse PRBCs Discussed with system administration advisor. Appreciate help Updated patient's daughter over the phone. Physical Exam Constitutional: WD/WN, vitals as above well developed and well nourished Neck: trachea midline, no thyromegaly Respiratory: normal respiratory effort, lungs clear to auscultation Cardiovascular: RRR, no murmur, no edema Gastrointestinal (Abdomen): soft, NT, ND, all incisions intact Neurologic: awake Psychiatric: Orientation: alert Results & Data Vital Signs (Past 12 Hours) Vital Signs Pulse Resp BP Pulse Ox 09/10/19 10:00 82 16 97 09/10/19 09:26 80 16 166/64 H 98 09/10/19 08:26 88 19 169/70 H 98 09/10/19 08:00 95 H 20 97 09/10/19 07:30 78 99 09/10/19 07:26 77 160/64 H 98 09/10/19 07:15 80 13 98 09/10/19 07:00 78 98 09/10/19 06:26 81 162/61 H 94 09/10/19 05:26 73 147/55 H 100 09/10/19 05:17 75 14 100 09/10/19 04:26 74 149/58 H 96 09/10/19 03:42 77 153/61 H 98 09/10/19 03:12 80 158/63 H 95 09/10/19 02:46 78 14 100 09/10/19 02:24 87 160/70 H 100 09/10/19 01:54 75 152/60 H 98 09/10/19 01:24 81 162/59 H 91 09/10/19 01:19 80 159/60 H 89 L 09/10/19 00:54 80 159/60 H 95 09/10/19 00:26 83 14 92 09/10/19 00:09 83 173/66 H 99 Laboratory Results Abnormal lab results 09/09/19 09/09/19 09/09/19 Range/Units 11:37 11:37 11:37 WBC 11.08 H (4.8-10.8) K/uL RBC 1.62 L (4.2-5.4) M/uL Hgb 4.6 L* (12.0-16.0) g/dL Hct 14.2 L* (37-47) % RDW Std Deviation 56.2 H (36.4-46.3) fL RDW Coeff of Aurelia 17.7 H (11.5-14.5) % Immature Gran # (Auto) 0.07 H (0.00-0.02) K/uL Neut # (Auto) 8.37 H (1.4-6.5) K/uL Coryell # (Auto) 1.22 H (0.11-0.59) K/uL Neutrophils # (Manual) (1.4-6.5) K/uL Total Absolute Neuts (1.4-6.5) K/uL Lymphocytes # (Manual) (1.2-3.4) K/uL Total Abs Lymphocytes (1.2-3.4) K/uL Monocytes # (Manual) (0.11-0.59) K/uL Metamyelocytes # (Man) (0-0) K/uL Blast Cells # (Man) (0-0) K/uL INR (0.9-1.1) Sodium 135 L (136-145) mmol/L Chloride (98-107) mmol/L Carbon Dioxide (21-32) mmol/L BUN 42 H (7-18) mg/dl Creatinine 2.55 H (0.6-1.2) mg/dl Glucose 250 H (70-99) mg/dl POC Glucose (70-99) Lactate 6.6 H* (0.4-2.0) mmol/L Calcium 7.2 L D (8.5-10.1) mg/dl Total Bilirubin (0.2-1) mg/dl AST 95 H (15-37) U/L Total Protein 4.1 L (6.4-8.2) gm/dl Albumin 1.3 L (3.4-5.0) gm/dl Albumin/Globulin Ratio 0.5 L (0.9-2) Crossmatch 09/09/19 09/09/19 09/09/19 Range/Units 11:40 11:40 15:10 WBC 25.98 H D (4.8-10.8) K/uL RBC 3.68 L (4.2-5.4) M/uL Hgb 11.0 L D (12.0-16.0) g/dL Hct 32.1 L (37-47) % RDW Std Deviation (36.4-46.3) fL RDW Coeff of Aurelia 14.6 H (11.5-14.5) % Immature Gran # (Auto) (0.00-0.02) K/uL Neut # (Auto) (1.4-6.5) K/uL Coryell # (Auto) (0.11-0.59) K/uL Neutrophils # (Manual) 22.81 H (1.4-6.5) K/uL Total Absolute Neuts 22.81 H (1.4-6.5) K/uL Lymphocytes # (Manual) 0.68 L (1.2-3.4) K/uL Total Abs Lymphocytes 0.68 L (1.2-3.4) K/uL Monocytes # (Manual) 1.35 H (0.11-0.59) K/uL Metamyelocytes # (Man) 0.91 H (0-0) K/uL Blast Cells # (Man) 0.23 H (0-0) K/uL INR 1.2 H (0.9-1.1) Sodium (136-145) mmol/L Chloride (98-107) mmol/L Carbon Dioxide (21-32) mmol/L BUN (7-18) mg/dl Creatinine (0.6-1.2) mg/dl Glucose (70-99) mg/dl POC Glucose (70-99) Lactate (0.4-2.0) mmol/L Calcium (8.5-10.1) mg/dl Total Bilirubin (0.2-1) mg/dl AST (15-37) U/L Total Protein (6.4-8.2) gm/dl Albumin (3.4-5.0) gm/dl Albumin/Globulin Ratio (0.9-2) Crossmatch See Detail 09/09/19 09/09/19 09/09/19 Range/Units 15:10 15:10 17:17 WBC (4.8-10.8) K/uL RBC (4.2-5.4) M/uL Hgb (12.0-16.0) g/dL Hct (37-47) % RDW Std Deviation (36.4-46.3) fL RDW Coeff of Aurelia (11.5-14.5) % Immature Gran # (Auto) (0.00-0.02) K/uL Neut # (Auto) (1.4-6.5) K/uL Coryell # (Auto) (0.11-0.59) K/uL Neutrophils # (Manual) (1.4-6.5) K/uL Total Absolute Neuts (1.4-6.5) K/uL Lymphocytes # (Manual) (1.2-3.4) K/uL Total Abs Lymphocytes (1.2-3.4) K/uL Monocytes # (Manual) (0.11-0.59) K/uL Metamyelocytes # (Man) (0-0) K/uL Blast Cells # (Man) (0-0) K/uL INR (0.9-1.1) Sodium (136-145) mmol/L Chloride (98-107) mmol/L Carbon Dioxide 20 L (21-32) mmol/L BUN 37 H (7-18) mg/dl Creatinine 2.35 H (0.6-1.2) mg/dl Glucose 184 H (70-99) mg/dl POC Glucose 153 H (70-99) Lactate 5.2 H* (0.4-2.0) mmol/L Calcium 7.1 L (8.5-10.1) mg/dl Total Bilirubin 1.2 H D (0.2-1) mg/dl AST 133 H (15-37) U/L Total Protein 5.7 L D (6.4-8.2) gm/dl Albumin 2.4 L (3.4-5.0) gm/dl Albumin/Globulin Ratio 0.7 L (0.9-2) Crossmatch 09/09/19 09/09/19 09/10/19 Range/Units 20:52 20:52 04:28 WBC 17.76 H (4.8-10.8) K/uL RBC 3.25 L (4.2-5.4) M/uL Hgb 10.1 L 9.6 L (12.0-16.0) g/dL Hct 29.0 L 27.3 L (37-47) % RDW Std Deviation 47.5 H (36.4-46.3) fL RDW Coeff of Aurelia 15.4 H (11.5-14.5) % Immature Gran # (Auto) (0.00-0.02) K/uL Neut # (Auto) (1.4-6.5) K/uL Coryell # (Auto) (0.11-0.59) K/uL Neutrophils # (Manual) (1.4-6.5) K/uL Total Absolute Neuts (1.4-6.5) K/uL Lymphocytes # (Manual) (1.2-3.4) K/uL Total Abs Lymphocytes (1.2-3.4) K/uL Monocytes # (Manual) (0.11-0.59) K/uL Metamyelocytes # (Man) (0-0) K/uL Blast Cells # (Man) (0-0) K/uL INR (0.9-1.1) Sodium (136-145) mmol/L Chloride 109 H (98-107) mmol/L Carbon Dioxide (21-32) mmol/L BUN 42 H (7-18) mg/dl Creatinine 2.23 H (0.6-1.2) mg/dl Glucose (70-99) mg/dl POC Glucose (70-99) Lactate (0.4-2.0) mmol/L Calcium 7.2 L (8.5-10.1) mg/dl Total Bilirubin (0.2-1) mg/dl AST (15-37) U/L Total Protein (6.4-8.2) gm/dl Albumin (3.4-5.0) gm/dl Albumin/Globulin Ratio (0.9-2) Crossmatch 09/10/19 09/10/19 Range/Units 04:28 06:25 WBC (4.8-10.8) K/uL RBC (4.2-5.4) M/uL Hgb (12.0-16.0) g/dL Hct (37-47) % RDW Std Deviation (36.4-46.3) fL RDW Coeff of Aurelia (11.5-14.5) % Immature Gran # (Auto) (0.00-0.02) K/uL Neut # (Auto) (1.4-6.5) K/uL Coryell # (Auto) (0.11-0.59) K/uL Neutrophils # (Manual) (1.4-6.5) K/uL Total Absolute Neuts (1.4-6.5) K/uL Lymphocytes # (Manual) (1.2-3.4) K/uL Total Abs Lymphocytes (1.2-3.4) K/uL Monocytes # (Manual) (0.11-0.59) K/uL Metamyelocytes # (Man) (0-0) K/uL Blast Cells # (Man) (0-0) K/uL INR (0.9-1.1) Sodium (136-145) mmol/L Chloride 110 H (98-107) mmol/L Carbon Dioxide (21-32) mmol/L BUN 40 H (7-18) mg/dl Creatinine 2.21 H (0.6-1.2) mg/dl Glucose (70-99) mg/dl POC Glucose 115 H (70-99) Lactate (0.4-2.0) mmol/L Calcium 7.2 L (8.5-10.1) mg/dl Total Bilirubin (0.2-1) mg/dl AST (15-37) U/L Total Protein (6.4-8.2) gm/dl Albumin (3.4-5.0) gm/dl Albumin/Globulin Ratio (0.9-2) Crossmatch
[2019-09-10] MEDS: AMLODIPINE BESYLATE 5 MG TAB PO SCH (14:07)
--- NOTE | 2019-09-10 14:08 | Surgery Progress Note ---
Date of Service September 10, 2019 Assessment & Plan (1) Gallstones: pod 1 from lap starla with take back for port site bleeding clinically doing well labs/vitals improved likely transfer from ICU tomorrow can try liquids today will need aggressive PT/OT soon Subjective pt extubated. awake alert. denies pain. denies nausea. Physical Exam Physical Exam: alert. oriented. converses appropriately. nad abd: soft. ecchymosis. ANUEL with scant serousanguinous. Results & Data Vital Signs (Past 12 Hours) Vital Signs Pulse Resp BP Pulse Ox 09/10/19 11:30 80 14 98 09/10/19 11:26 80 16 170/75 H 98 09/10/19 11:00 85 18 97 09/10/19 10:30 80 15 98 09/10/19 10:26 78 19 169/67 H 98 09/10/19 10:00 82 16 97 09/10/19 09:26 80 16 166/64 H 98 09/10/19 08:26 88 19 169/70 H 98 09/10/19 08:00 95 H 20 97 09/10/19 07:30 78 99 09/10/19 07:26 77 160/64 H 98 09/10/19 07:15 80 13 98 09/10/19 07:00 78 98 09/10/19 06:26 81 162/61 H 94 09/10/19 05:26 73 147/55 H 100 09/10/19 05:17 75 14 100 09/10/19 04:26 74 149/58 H 96 09/10/19 03:42 77 153/61 H 98 09/10/19 03:12 80 158/63 H 95 09/10/19 02:46 78 14 100 09/10/19 02:24 87 160/70 H 100 PG Care Time/CCT Total # of Minutes Spent Total Time Spent with Patient: Total time spent is greater than 50% in coordination of care (as documented) at patient's floor/unit and/or counseling patient:
[2019-09-10] MEDS: METOPROLOL TARTRATE 100 MG TAB PO SCH ×2 (18:07→21:02)
[2019-09-11] MEDS: PIPERACILLIN/TAZOBACTAM 3.375 GM in DEXTROSE 5% 100 ML IV SCH ×2 (01:08→07:56)
[2019-09-11] MEDS ORDERED: HydrALAZINE HCL 20 MG/ML VIAL IV STA (01:37)
[2019-09-11 04:12] LABS: Hematocrit (blood only) 26.4 % (37-47); Hemoglobin 9.2 g/dL (12.0-16.0); Mean Corpuscular Hemoglobin 30.1 pg (25-34); Mean Corpuscular Hgb Conc 34.8 g/dL (32-36); Mean Corpuscular Volume 86.3 fL (80-100); Mean Platelet Volume 8.7 fL (7.4-10.4); Platelet Count 164 K/uL (130-400); RDW Coefficient of Variation 16.6 % (11.5-14.5); RDW Standard Deviation 52.1 fL (36.4-46.3); Red Blood Count 3.06 M/uL (4.2-5.4); White Blood Count 16.46 K/uL (4.8-10.8)
[2019-09-11 04:31] LABS: Albumin Level 1.9 gm/dl (3.4-5.0); BUN Creatinine Ratio 18.5 (10-20); Calcium 7.7 mg/dl (8.5-10.1); Creatinine Clr Calc Pharmacy 23.9 ml/min; Est GFR (Non-African American) 21.6; Potassium 3.6 mmol/L (3.5-5.1)
[2019-09-11 04:34] LABS: Albumin Globulin Ratio 0.6 (0.9-2); Bilirubin,Total 0.7 mg/dl (0.2-1); Globulin 3.4 gm/dl (2.5-4.0); Total Protein 5.3 gm/dl (6.4-8.2)
[2019-09-11] MEDS: METOCLOPRAMIDE HCL 10 MG TABLET PO SCH (05:29)
[2019-09-11] MEDS: HYDROmorphone INJ 0.5 MG/0.5 ML SYR IV PRN (05:29)
--- NOTE | 2019-09-11 07:27 | Anesthesiology Progress Note ---
Date of Service September 11, 2019 Anesthesia Post Procedure Vital Signs Vital Signs: Temp Pulse Pulse Pulse Pulse Pulse Resp 09/11/19 05:37 74 16 09/11/19 05:00 71 16 09/11/19 04:00 72 16 09/11/19 03:00 73 73 73 16 09/11/19 02:00 75 14 09/11/19 01:00 37 C 77 77 77 77 17 09/11/19 00:01 36.6 C 75 75 75 75 16 09/10/19 23:00 36.9 C 74 20 09/10/19 22:01 79 21 09/10/19 22:00 80 22 09/10/19 21:02 82 17 09/10/19 21:01 82 19 09/10/19 21:00 78 17 09/10/19 20:01 83 16 09/10/19 19:02 85 17 09/10/19 19:01 88 16 09/10/19 18:18 91 H 19 09/10/19 18:01 86 17 09/10/19 17:31 90 21 09/10/19 17:16 90 21 09/10/19 15:01 87 19 09/10/19 14:34 86 15 09/10/19 14:01 95 H 22 09/10/19 14:00 98 H 24 09/10/19 13:01 95 H 21 09/10/19 13:00 81 16 09/10/19 12:39 83 15 09/10/19 12:26 90 19 09/10/19 11:30 80 14 09/10/19 11:26 80 16 09/10/19 11:00 85 18 09/10/19 10:30 80 15 09/10/19 10:26 78 19 09/10/19 10:00 82 16 09/10/19 09:26 80 16 09/10/19 08:26 88 19 09/10/19 08:00 95 H 20 09/10/19 07:30 78 BP BP BP Pulse Ox 09/11/19 05:37 163/61 H 94 09/11/19 05:00 163/61 H 99 09/11/19 04:00 163/60 H 95 09/11/19 03:00 171/62 H 96 09/11/19 02:00 156/59 H 96 09/11/19 01:00 183/72 H 96 09/11/19 00:01 151/73 H 151/73 H 91 09/10/19 23:00 164/64 H 93 09/10/19 22:01 181/79 H 93 09/10/19 22:00 93 09/10/19 21:02 94 09/10/19 21:01 187/72 H 95 09/10/19 21:00 94 09/10/19 20:01 197/76 H 94 09/10/19 19:02 94 09/10/19 19:01 194/72 H 94 09/10/19 18:18 189/72 H 94 09/10/19 18:01 184/69 H 94 09/10/19 17:31 188/72 H 94 09/10/19 17:16 184/70 H 93 09/10/19 15:01 176/68 H 93 09/10/19 14:34 189/82 H 93 09/10/19 14:01 189/82 H 92 09/10/19 14:00 92 09/10/19 13:01 181/77 H 92 09/10/19 13:00 93 09/10/19 12:39 172/67 H 92 09/10/19 12:26 186/72 H 92 09/10/19 11:30 98 09/10/19 11:26 170/75 H 98 09/10/19 11:00 97 09/10/19 10:30 98 09/10/19 10:26 169/67 H 98 09/10/19 10:00 97 09/10/19 09:26 166/64 H 98 09/10/19 08:26 169/70 H 98 09/10/19 08:00 97 09/10/19 07:30 99 Notes Mental Status: alert / awake / arousable and participated in evaluation Patient Amnestic to Procedure: Yes Nausea / Vomiting: adequately controlled Pain: adequately controlled Airway Patency, RR, SpO2: stable & adequate BP & HR: stable & adequate Hydration State: stable & adequate Anesthetic Complications: no major complications apparent and Pt Satisfied with anesthetic care
[2019-09-11] MEDS: fentaNYL DRIP 1,250 MCG/250 ML BAG IV SCH (07:43)
[2019-09-11] MEDS: PHENYLEPHRINE HCL 20 MG in DEXTROSE 5% 500 ML IV SCH (07:43)
[2019-09-11] MEDS: AMLODIPINE BESYLATE 5 MG TAB PO SCH (07:57)
[2019-09-11] MEDS: SERTRALINE HCL 50 MG TABLET PO SCH (07:57)
[2019-09-11] MEDS: MEGESTROL ACETATE 40 MG TAB PO SCH (07:57)
[2019-09-11] MEDS: FAMOTIDINE 20 MG TAB PO SCH ×2 (07:57→21:17)
[2019-09-11] MEDS: METOPROLOL TARTRATE 100 MG TAB PO SCH ×2 (07:57→21:18)
[2019-09-11] MEDS ORDERED: FUROSEMIDE 40 MG/4 ML VIAL IV ONE (07:58)
[2019-09-11] MEDS ORDERED: FUROSEMIDE 40 MG in SYRINGE 0 ML IV ONE (08:15)
--- NOTE | 2019-09-11 08:37 | Surgery Progress Note ---
Date of Service September 11, 2019 Assessment & Plan (1) Gallstones: pod 2 doing well ok to transfer to floor PT/OT ok to advance diet Subjective pt awake/alert. nad. denies pain or nausea. overall feeling well. Physical Exam Physical Exam: alert. nad abd: +ecchymosis. incisions look good. ANUEL scant/serosanguinous Results & Data Vital Signs (Past 12 Hours) Vital Signs Temp Pulse Pulse Pulse Pulse Pulse Resp 09/11/19 05:37 74 16 09/11/19 05:00 71 16 09/11/19 04:00 72 16 09/11/19 03:00 73 73 73 16 09/11/19 02:00 75 14 09/11/19 01:00 37 C 77 77 77 77 17 09/11/19 00:01 36.6 C 75 75 75 75 16 09/10/19 23:00 36.9 C 74 20 09/10/19 22:01 79 21 09/10/19 22:00 80 22 09/10/19 21:02 82 17 09/10/19 21:01 82 19 09/10/19 21:00 78 17 BP BP BP Pulse Ox 09/11/19 05:37 163/61 H 94 09/11/19 05:00 163/61 H 99 09/11/19 04:00 163/60 H 95 09/11/19 03:00 171/62 H 96 09/11/19 02:00 156/59 H 96 09/11/19 01:00 183/72 H 96 09/11/19 00:01 151/73 H 151/73 H 91 09/10/19 23:00 164/64 H 93 09/10/19 22:01 181/79 H 93 09/10/19 22:00 93 09/10/19 21:02 94 09/10/19 21:01 187/72 H 95 09/10/19 21:00 94 PG Care Time/CCT Total # of Minutes Spent Total Time Spent with Patient: Total time spent is greater than 50% in coordination of care (as documented) at patient's floor/unit and/or counseling patient:
--- NOTE | 2019-09-11 08:44 | Nephrology Progress Note ---
Date of Service September 11, 2019 Assessment & Plan (1) Hypertension: recurrent HTN, which was an ongoing issue prior to surgery. she had issues prior to surgery absorbing po meds but did better on IV -as of this am on hydralazine 25 mg po tid (had 2 doses so far since OR), amlodipine 10 mg daily (2 doses so far), metoprolol 100 mg bid (3 doses so far) -prior to OR, choice of bp meds limited by bradycardia which so far has not recurred -CXR yesterday w/ vascular congestion; pt w/ ongoing/new 02 needs -cont bp meds current dose -added prn hydralazine 10 mg IV q prn SBP > 160 -added low dose IV lasix 10 mg tid; did have 40 mg this am IV x 1 -hold ACEI for now; tolerated doxazosin prior to OR - hold in reserve for now -daily bmp ->>>>primary service to ensure pain/anxiety are controlled -PT evaluation post OR pending (2) Acute kidney injury superimposed on CKD: New EDYTA on CKD earlier this admission and on borderline for recurrence; baseline of 1.8-2.0; presenting creatinine 2.6 on 08/30 and peak creatinine same. mejia 1.9 on 09/01; peak at 2.7 09/07 w/ downtrend to 2.2 today, plateaud there since 09/09. poor po intake/N improving -daily bmp -hold enaliprilat for now -low dose lasix as above -BP control as above -nsaid and other nephrotoxin avoidance to continue -was on parenteral nutrition prior to OR; on clears > regular diet now Subjective on 09/09 had lap starla w/ take back d/t port site bleed; in ICU for now, may move out soon. SBP 160-190s past 24 hrs and on po anti HTN meds; remains on 02nc; through the day she has so far tolerated po and diet advancing Review of Systems Review of Systems: All systems reviewed & are unremarkable except as noted in HPI & below Physical Exam Constitutional: well developed and well nourished; no acute distress (on 02nc sitting in bed) Eyes: EOM intact bilaterally ENMT: Ears: no external ear abnormality Nose: no external nose abnormality Mouth: + dry oral mucous membranes Neck: no nuchal rigidity Respiratory: normal respiratory effort; no respiratory distress Au scultation: + diminished lung sounds and + crackles (bibasilar) Cardiovascular: Rate/Rhythm: regular rate and regular rhythm Extremities: + edema (2+ pedal) Gastrointestinal (Abdomen): Inspection/Auscultation: normal bowel sounds Percussion/Palpation: abdomen soft; abdomen nontender Musculoskeletal: Extremities: strength 5/5 throughout Skin: no rashes, warm and dry incisions c/d/i Neurologic: hammond, fluent speech, no tremor Psychiatric: A+Ox3, euthymic affect Orientation: alert and oriented x 3 Speech: normal rate/rhythm/volume of speech Affect: + anxious affect Results & Data Vital Signs (Past 12 Hours) Vital Signs Temp Pulse Pulse Pulse Pulse Pulse Resp 09/11/19 05:37 74 16 09/11/19 05:00 71 16 09/11/19 04:00 72 16 09/11/19 03:00 73 73 73 16 09/11/19 02:00 75 14 09/11/19 01:00 37 C 77 77 77 77 17 09/11/19 00:01 36.6 C 75 75 75 75 16 09/10/19 23:00 36.9 C 74 20 09/10/19 22:01 79 21 09/10/19 22:00 80 22 09/10/19 21:02 82 17 09/10/19 21:01 82 19 09/10/19 21:00 78 17 BP BP BP Pulse Ox 09/11/19 05:37 163/61 H 94 09/11/19 05:00 163/61 H 99 09/11/19 04:00 163/60 H 95 09/11/19 03:00 171/62 H 96 09/11/19 02:00 156/59 H 96 09/11/19 01:00 183/72 H 96 09/11/19 00:01 151/73 H 151/73 H 91 09/10/19 23:00 164/64 H 93 09/10/19 22:01 181/79 H 93 09/10/19 22:00 93 09/10/19 21:02 94 09/10/19 21:01 187/72 H 95 09/10/19 21:00 94 Laboratory Results 09/11/19 04:04 09/11/19 04:04 Diagnostic Findings cxr 09/10 1. Satisfactory positioning of lines and tubes. 2. Pulmonary vascular congestion with bibasilar opacities may reflect atelectasis or consolidation. (1) Hypertension Hypertension type: essential hypertension Qualified Code(s): I10 - Essential (primary) hypertension
--- NOTE | 2019-09-11 08:54 | Hospitalist Progress Note ---
Date of Service September 11, 2019 Assessment & Plan (1) Hemorrhagic shock: (2) Nausea and vomiting: Presented initially with Anorexia, nausea, and vomiting after colon resection for colon cancer. H/O Caroli's disease -CT ABD:No abscess. No bowel obstruction. Mild left abdominal infiltration which is likely postsurgical. Pneumobilia. A few locules of gas within the gallbladder which is likely related. Minimal gallbladder distention without pericholecystic infiltration. 2.4 x 1.6 cm subcapsular segment 8 hypodensity. In part, this could reflect ductal dilatation. This is suboptimally assessed on this unenhanced exam and comparison with prior imaging studies, if available, is recommended. If no priors, a nonemergent MRI of the liver is recommended. Marked left renal atrophy. No hydronephrosis. -Gall Bladder USD:Stone versus sludge ball within the gallbladder. Mild gallbladder distention. No sonographic Sierra sign. No evidence for acute cholecystitis by sonography. Pneumobilia. No biliary dilatation. -HIDA Scan:Nonvisualization of the gallbladder at 60 minutes. There is delayed visualization of the gallbladder following morphine administration. This indicates patency of the cystic duct, and could indicate biliary dysfunction/chronic cholecystitis. Clinical correlation will be required. -Normal Recent EGD -Status post laparoscopic cholecystectomy on 09/09/2019 complicated by postop acute hemorrhagic shock that was stabilized by a second OR visit Hemoglobin dropped after surgery, mejia was 4.6 . Required 5 PRBC and 2 platelets, FFP. Hemoglobin has been stable after bleeding control. Hemodynamically stable and off pressors Extubated yesterday 09/10/19 Will continue to monitor hemoglobin and hemodynamics Surgery team is on board -Tolerating po clear liquid. Will advance diet today as tolerated -Plavix still on hold -Pulmonary edema on exam. Patient is at net positive 7L over the past 72hr from IVF and blood products. Got IV lasix this morning. Will monitor and diurese as needed. -Blood Cx: No growth to date. Procal was 0.33. Currently on IV Zosyn. Leukocytosis peaked at 25 yesterday [likely reactive in the setting of aforementioned events yesterday], currently 17.76 this morning. Antibiotics discontinued Blood, urine cultures negative No obvious source of infection Consider ID evaluation if needed Monocytosis noted on differential Peripheral smear: Consistent with nonspecific normochromic, normocytic anemia with monocytosis. Not suggestive of myelodysplastic syndrome or myeloproliferative disorder or hemolytic anemia. Will continue to monitor WBC (3) Metabolic encephalopathy: Acute metabolic encephalopathy secondary to hemorrhagic shock Encephalopathy is resolved as noted above Required intubation. 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 Blood pressure has become elevated. Resumed po antihypertensives. Will monitor and optimize (6) GERD (gastroesophageal reflux disease): Continue Pepcid (7) Lupus: Stable (8) DVT prophylaxis: No pharmacologic prophyaxis due to hemorrhagic shock (9) Discharge planning issues: Primary care follow-up with Dr. Beasley. GI follow-up with [facility] [place]. PT paris Subjective Patient seen and examined this morning Has been doing well since after extubation yesterday. Patient reports mild shortness of breath with exertion and cough Nausea and vomiting has resolved Denied any abdominal pain. Last bowel movement was on 09/08/2019. Denied any chest pain, palpitations, leg swelling. Review of Systems Review of Systems: All systems reviewed and unremarkable except for mentioned above. Physical Exam Physical Exam: General: Alert oriented x3, no acute distress Eyes: PERRL, conjunctivae normal, not pale, anicteric sclerae, EOM intact bilaterally ENMT: External ear and nose normal, oropharynx normal Neck: Normal visual inspection, no tracheal deviation Respiratory: Normal respiratory effort, no respiratory distress, on 2L/min Nasal cannula, reduced air entry both lung bases, bibasilar crackles, no wheezes Cardiovascular: Pulse is RRR. S1 S2 +pedal edema Chest (Breasts): Chest: normal inspection of chest Gastrointestinal (Abdomen): Abdomen is not distended, soft, clean laparoscopic incision sites, bruising noted bilateral lower abd wall, non-tender to palpation, no guarding, no palpable hepatosplenomegaly, normal bowel sounds Genitourinary: No CVA tenderness. Fischer in situ Skin: No rash noted on gross inspection, No ulcers noted. Central line in situ. Neurologic: Alert and oriented x 3, No focal weakness, sensation grossly intact Psychiatric: Euthymic affect Results & Data Vital Signs (Past 12 Hours) Vital Signs Temp Pulse Pulse Pulse Pulse Pulse Resp 09/11/19 05:37 74 16 09/11/19 05:00 71 16 09/11/19 04:00 72 16 09/11/19 03:00 73 73 73 16 09/11/19 02:00 75 14 09/11/19 01:00 37 C 77 77 77 77 17 09/11/19 00:01 36.6 C 75 75 75 75 16 09/10/19 23:00 36.9 C 74 20 09/10/19 22:01 79 21 09/10/19 22:00 80 22 09/10/19 21:02 82 17 09/10/19 21:01 82 19 09/10/19 21:00 78 17 BP BP BP Pulse Ox 09/11/19 05:37 163/61 H 94 09/11/19 05:00 163/61 H 99 09/11/19 04:00 163/60 H 95 09/11/19 03:00 171/62 H 96 09/11/19 02:00 156/59 H 96 09/11/19 01:00 183/72 H 96 09/11/19 00:01 151/73 H 151/73 H 91 09/10/19 23:00 164/64 H 93 09/10/19 22:01 181/79 H 93 09/10/19 22:00 93 09/10/19 21:02 94 09/10/19 21:01 187/72 H 95 09/10/19 21:00 94 Laboratory Results Laboratory Results - last 24 hr 09/09/19 09/09/19 09/09/19 11:40 15:10 15:18 WBC RBC Hgb POC Hgb 10.2 L Hct POC Hct 30 L MCV MCH MCHC RDW Std Deviation RDW Coeff of Aurelia Plt Count MPV Blood Smear Review Specimen Type Arterial Sample Site R Radial Patient Temperature 33.7 POC pH 7.30 L POC pCO2 40 POC pO2 459 H POC HCO3 20 POC Total CO2 21 L POC Base Excess -6.0 POC O2 Saturation 100 O2 Sat Pulse Oximetry 100 ABG pH (Temp Correct) 7.349 L ABG pCO2 (Temp Corrct 35 POC ABG pO2 at Pt Temp 439 Eddie Test Acceptable O2 Delivery Device Ventilator POC O2 Rate 16 Minute Ventilation 7.3 Vent Mode AC POC FiO2 100 Tidal Volume 450 End Tidal CO2 26 PEEP 5 POC Sodium 138 Sodium POC Potassium 4.1 Potassium Chloride Carbon Dioxide Anion Gap BUN Creatinine Est Cr Clr Drug Dosing Est GFR ( Amer) Est GFR (Non-Af Amer) BUN/Creatinine Ratio Glucose POC Glucose Calcium Total Bilirubin AST ALT Alkaline Phosphatase Total Protein Albumin Globulin Albumin/Globulin Ratio Crossmatch See Detail 09/10/19 09/11/19 09/11/19 12:21 04:04 04:04 WBC 16.46 H RBC 3.06 L Hgb 9.2 L POC Hgb Hct 26.4 L POC Hct MCV 86.3 MCH 30.1 MCHC 34.8 RDW Std Deviation 52.1 H RDW Coeff of Aurelia 16.6 H Plt Count 164 MPV 8.7 Blood Smear Review Specimen Type Sample Site Patient Temperature POC pH POC pCO2 POC pO2 POC HCO3 POC Total CO2 POC Base Excess POC O2 Saturation O2 Sat Pulse Oximetry ABG pH (Temp Correct) ABG pCO2 (Temp Corrct POC ABG pO2 at Pt Temp Eddie Test O2 Delivery Device POC O2 Rate Minute Ventilation Vent Mode POC FiO2 Tidal Volume End Tidal CO2 PEEP POC Sodium Sodium 141 POC Potassium Potassium 3.6 Chloride 108 H Carbon Dioxide 29 Anion Gap 4.0 BUN 40 H Creatinine 2.17 H Est Cr Clr Drug Dosing 23.9 Est GFR ( Amer) 25.0 Est GFR (Non-Af Amer) 21.6 BUN/Creatinine Ratio 18.5 Glucose 96 POC Glucose 121 H Calcium 7.7 L Total Bilirubin 0.7 D AST 68 H ALT 33 Alkaline Phosphatase 82 Total Protein 5.3 L Albumin 1.9 L Globulin 3.4 Albumin/Globulin Ratio 0.6 L Crossmatch (1) Hypertension Hypertension type: essential hypertension Qualified Code(s): I10 - Essential (primary) hypertension
[2019-09-11] MEDS ORDERED: METOCLOPRAMIDE HCL 10 MG TABLET PO PRN (10:11)
--- NOTE | 2019-09-11 10:26 | Critical Care Progress Note ---
Date of Service September 11, 2019 Assessment & Plan (1) Hemorrhagic shock: -- S/p Shock likely hemorrhagic s/p OR Bedside US showed free fluid in the abdomen, status post reevaluation for bleeding and cauterization of the bleeding vessel. Off pressors as of evening 09/09/2019 Patient got a total of 5 units PRBC, 2 units platelets, FFP H&H stable -- s/p VDRF sec to Metabolic encephalopathy sec to shock, encephalopathy improved. extubated 09/10/19 --History of acalculus cholecystitis with pneumobilia Status post cholecystectomy 09/09 2019 s/p 13 days of Abx. discontinue it. Leukocytosis likely reactive to bleed and surgery. Trending down -- EDYTA on CKD sec to shock monitor BUN/Cr, improving -- Severe protein calorie malnutrition Albumin only 1.3 started on clear liquids, advance as tolerated -- Hx of recently Dx Colon cancer s/p resection 08/05/19 Caroli's disease -- DVT prophylaxis IPCs given patient is actively bleeding Famotidine for GI Plan: Restarted patient's BP medications. Needs more optimal control Lasix 40mg IV. Advanced diet as tolerated. Remove gray and TLC DC megace. DC Abx DG patient to medical floor. (2) Metabolic encephalopathy: (3) EDYTA (acute kidney injury): Subjective Patient seen and examined at bedside. No acute distress, no adverse events overnight. No headache, no nausea or vomiting. Patient is a tolerating clear diet. Minimal abdominal pain. No flatulence, no bowel movement. No dizziness, no blurry vision, no shortness of breath, no chest pain. H&H is stable. Review of Systems Review of Systems: All systems reviewed & are unremarkable except as noted in HPI & below Physical Exam Physical Exam: Constitutional: NAD HEENT: PERRLA, EOMI Respiratory system: +ve crackles bilateral lower lobes, decreased air entry bilaterally, no wheeze, no rhonchi CVS: S1-S2 positive, positive 2 out of 6 systolic ejection murmur appreciated best at the aorta Abdomen: Soft, nontender, nondistended, positive bowel sounds x4, positive bruising appreciated bilaterally, laparoscopic incision site intact. Extremities: +2 pulses bilaterally radialis/ dorsalis pedis, no cyanosis, no edema Neuro:AAO*3 Psych: Normal mood and affect G/U: Positive Gray Positive right IJ Skin: no rashes, warm and dry + turgor decreased Lymphatic: no cervical or axillary lymphadenopathy Results & Data Vital Signs (Past 12 Hours) Vital Signs Temp Pulse Pulse Pulse Pulse Pulse Resp 09/11/19 10:00 68 17 09/11/19 09:30 67 16 09/11/19 09:01 69 16 09/11/19 09:00 69 18 09/11/19 08:30 77 27 H 09/11/19 08:01 68 16 09/11/19 08:00 70 17 09/11/19 07:30 75 18 09/11/19 07:01 70 14 09/11/19 07:00 69 13 09/11/19 06:45 69 14 09/11/19 05:37 74 16 09/11/19 05:00 71 16 09/11/19 04:00 72 16 09/11/19 03:00 73 73 73 16 09/11/19 02:00 75 14 09/11/19 01:00 37 C 77 77 77 77 17 09/11/19 00:01 36.6 C 75 75 75 75 16 09/10/19 23:00 36.9 C 74 20 BP BP BP Pulse Ox 09/11/19 10:00 96 09/11/19 09:30 96 09/11/19 09:01 187/75 H 95 09/11/19 09:00 95 09/11/19 08:30 95 09/11/19 08:01 178/63 H 95 09/11/19 08:00 95 09/11/19 07:30 95 09/11/19 07:01 161/68 H 96 09/11/19 07:00 96 09/11/19 06:45 96 09/11/19 05:37 163/61 H 94 09/11/19 05:00 163/61 H 99 09/11/19 04:00 163/60 H 95 09/11/19 03:00 171/62 H 96 09/11/19 02:00 156/59 H 96 09/11/19 01:00 183/72 H 96 09/11/19 00:01 151/73 H 151/73 H 91 09/10/19 23:00 164/64 H 93 09/11/19 04:04 09/11/19 04:04 Coding Level of Care Code Critical Care 1st 30-74 mins Diagnoses Hemorrhagic shock R57.8 Metabolic encephalopathy G93.41 EDYTA (acute kidney injury) N17.9 Time Spent (min) 45
[2019-09-11] MEDS ORDERED: HYDROmorphone INJ 0.5 MG/0.5 ML SYR IV PRN (10:29)
[2019-09-11] MEDS: HydrALAZINE HCL 20 MG/ML VIAL IV PRN ×2 (10:34→17:07)
[2019-09-11 11:20] LABS: iSTAT Art Bld Gas pCO2 Correct 35 mmHg (35-46); iSTAT Art Bld Gas pH Corrected 7.349 (7.35-7.45); iSTAT Arterial Blood Gas pCO2 40 mmHg (35-46); iSTAT Hematocrit 30 % (37-47); iSTAT Hemoglobin 10.2 g/dl (12.0-16.0); iSTAT Potassium 4.1 mEq/L (3.3-5.0); iSTAT Sodium 138 mEq/L (135-144)
[2019-09-11 11:21] LABS: iSTAT Arterial Blood Gas HCO3 20 meg/L (19-24); iSTAT Arterial Blood Gas pO2 459 mmHg (80-95); iSTAT Arterial Blood Gas pO2 C 439; iSTAT Carbon Dioxide 21 mEq/l (24-31)
[2019-09-11 11:22] LABS: Patient Temperature 33.7; iSTAT Allen Test Acceptable; iSTAT Sample Type Arterial; iSTAT Site R Radial
[2019-09-11 11:23] LABS: iSTAT FiO2 100 %; iSTAT SpO2 100
[2019-09-11] MEDS ORDERED: FUROSEMIDE 10 MG in SYRINGE 0 ML IV SCH (12:00)
[2019-09-11] MEDS: HydrALAZINE TAB 50 MG TAB PO SCH ×2 (13:56→21:19)
[2019-09-11] MEDS: ACETAMINOPHEN 325 MG TAB PO PRN (19:02)
[2019-09-12] MEDS: ACETAMINOPHEN 325 MG TAB PO PRN ×2 (02:34→06:41)
[2019-09-12] MEDS: HydrALAZINE HCL 20 MG/ML VIAL IV PRN ×4 (02:49→23:42)
[2019-09-12] MEDS ORDERED: HYDROCODONE/ACETAMOPHEN 5/325MG TAB PO PRN (07:12)
--- NOTE | 2019-09-12 07:20 | Surgery Progress Note ---
Date of Service September 12, 2019 Assessment & Plan (1) Gallstones: continues to improve clinically. able to eat for first time in awhile last night. will give diflucan for what looks like an oral candidiasis ( ? etiology of her drinks tasting funny) will give norco for discomfort keep ANUEL for now agressive PT/OT Dr. Francois covering for weekend. Subjective feeling ok other than some muscular discomfort on the right side of her neck/s houlder. tolerated potatoes, meat, carrots last night without nausea or vomitting. does complain of "salt" like taste with drinking fluids. Physical Exam Physical Exam: alert. nad Heent: red tongue with some white leukoplakia. abd: soft. ecchymosis. same as yesterday. ANUEL with moderate amount of seros anguinous. Results & Data Vital Signs (Past 12 Hours) Vital Signs Temp Pulse Pulse Pulse Pulse Resp BP 09/12/19 07:12 36.9 C 70 16 09/12/19 03:37 36.8 C 70 17 09/12/19 02:42 36.6 C 77 20 189/69 H 09/11/19 23:59 65 09/11/19 23:46 36.5 C 72 19 09/11/19 20:44 36.9 C 69 18 BP Pulse Ox 09/12/19 07:12 197/65 H 94 09/12/19 03:37 174/69 H 92 09/12/19 02:42 201/65 H 94 09/11/19 23:59 09/11/19 23:46 157/73 H 94 09/11/19 20:44 171/69 H 95 PG Care Time/CCT Total # of Minutes Spent Total Time Spent with Patient: Total time spent is greater than 50% in coordination of care (as documented) at patient's floor/unit and/or counseling patient:
[2019-09-12 07:45] LABS: Hematocrit (blood only) 31.7 % (37-47); Hemoglobin 10.5 g/dL (12.0-16.0); Mean Corpuscular Hemoglobin 29.5 pg (25-34); Mean Corpuscular Hgb Conc 33.1 g/dL (32-36); Mean Platelet Volume 9.4 fL (7.4-10.4); Platelet Count 250 K/uL (130-400); RDW Coefficient of Variation 16.2 % (11.5-14.5); RDW Standard Deviation 52.3 fL (36.4-46.3); Red Blood Count 3.56 M/uL (4.2-5.4); White Blood Count 17.33 K/uL (4.8-10.8)
[2019-09-12] MEDS: HYDROCODONE/ACETAMOPHEN 5/325MG TAB PO PRN (07:45)
[2019-09-12] MEDS: HydrALAZINE TAB 50 MG TAB PO SCH ×3 (07:47→20:30)
[2019-09-12] MEDS: METOPROLOL TARTRATE 100 MG TAB PO SCH ×2 (07:48→20:30)
[2019-09-12] MEDS: FAMOTIDINE 20 MG TAB PO SCH (07:48)
[2019-09-12] MEDS: SERTRALINE HCL 50 MG TABLET PO SCH (07:48)
[2019-09-12] MEDS: AMLODIPINE BESYLATE 5 MG TAB PO SCH (07:48)
[2019-09-12 08:00] LABS: Basophils # (auto) 0.02 K/uL (0-0.2); Basophils % (auto) 0.1 %; Eosinophils % (auto) 0.6 %; Immature Granulocytes # (auto) 0.04 K/uL (0.00-0.02); Immature Granulocytes % (auto) 0.2 %; Lymphocytes # (auto) 1.66 K/uL (1.2-3.4); Lymphocytes % (auto) 9.6 %; Monocytes # (auto) 2.06 K/uL (0.11-0.59); Monocytes % (auto) 11.9 %; Neutrophils # (auto) 13.45 K/uL (1.4-6.5); Neutrophils % (auto) 77.6 %
[2019-09-12] MEDS ORDERED: FLUCONAZOLE 100 MG/50 ML BAG IV ONE ×2 (08:00→10:00)
[2019-09-12 08:11] LABS: Calcium 8.9 mg/dl (8.5-10.1); Creatinine Clr Calc Pharmacy 24.1 ml/min; Est GFR (African American) 25.6; Est GFR (Non-African American) 22.1; Potassium 3.1 mmol/L (3.5-5.1)
[2019-09-12] MEDS ORDERED: POTASSIUM CHLORIDE 10 MEQ TABCR PO ONE (09:15)
[2019-09-12] MEDS ORDERED: POTASSIUM CHLORIDE 20 MEQ TABCR PO STA (09:26)
--- NOTE | 2019-09-12 09:26 | Nephrology Progress Note ---
Date of Service September 12, 2019 Assessment & Plan (1) Hypertension: recurrent HTN, which was an ongoing issue prior to surgery. she had issues prior to surgery absorbing po meds but did better on IV -as of this am on hydralazine 50 mg po tid (upped from 25 tid 09/11), amlodipine 10 mg daily, metoprolol 100 mg bid -prior to OR, choice of bp meds limited by bradycardia which so far has not recurred; prior to OR she did also have issues absorbing po bp meds <<monitor for this -CXR recently w/ vascular congestion; pt has gotten off now though -cont bp meds current dose -cont prn hydralazine 10 mg IV q4h prn SBP > 160 -cont low dose IV lasix 10 mg tid -hold ACEI for now; tolerated doxazosin prior to OR - hold in reserve for now -daily bmp ->>>>primary service to ensure pain/anxiety are controlled -PT evaluation post OR pending (2) Acute kidney injury superimposed on CKD: New EDYTA on CKD earlier this admission and on borderline for recurrence; baseline of 1.8-2.0; presenting creatinine 2.6 on 08/30 and peak creatinine same. mejia 1.9 on 09/01; peak at 2.7 09/07 w/ downtrend to 2.2 today, plateaud there since 09/09. poor po intake/N improving -daily bmp -hold enaliprilat for now -low dose lasix as above -BP control as above -nsaid and other nephrotoxin avoidance to continue -was on parenteral nutrition prior to OR; on clears > regular diet now Subjective N recurring today and harder for her to keep food down; seen on rounds about 10 am; no sob, no voidign c/o, no uncontrolled abd or other pain Review of Systems Review of Systems: All systems reviewed & are unremarkable except as noted in HPI & below Physical Exam Constitutional: well developed and well nourished; no acute distress (on 02nc sitting in bed) Eyes: EOM intact bilaterally ENMT: Ears: no external ear abnormality Nose: no external nose abnormality Mouth: + dry oral mucous membranes Neck: no nuchal rigidity Respiratory: normal respiratory effort; no respiratory distress Auscultation: lungs clear to auscultation bilaterally and + diminished lung sounds Cardiovascular: Rate/Rhythm: regular rate and regular rhythm Extremities: + edema (2+ pedal) Gastrointestinal (Abdomen): Inspection/Auscultation: normal bowel sounds Percussion/Palpation: abdomen soft; abdomen nontender surg incisions c/d/i Musculoskeletal: Extremities: strength 5/5 throughout Skin: no rashes, warm and dry Psychiatric: A+Ox3, euthymic affect Orientation: alert and oriented x 3 Speech: normal rate/rhythm/volume of speech Affect: + anxious affect Results & Data Vital Signs (Past 12 Hours) Vital Signs Temp Pulse Pulse Pulse Resp BP BP 09/12/19 07:12 36.9 C 70 16 197/65 H 09/12/19 03:37 36.8 C 70 17 174/69 H 09/12/19 02:42 36.6 C 77 20 189/69 H 201/65 H 09/11/19 23:59 65 09/11/19 23:46 36.5 C 72 19 157/73 H Pulse Ox 09/12/19 07:12 94 09/12/19 03:37 92 09/12/19 02:42 94 09/11/19 23:59 09/11/19 23:46 94 Laboratory Results 09/12/19 07:16 09/12/19 07:16 (1) Hypertension Hypertension type: essential hypertension Qualified Code(s): I10 - Essential (primary) hypertension
--- NOTE | 2019-09-12 10:17 | Hospitalist Progress Note ---
Date of Service September 12, 2019 Assessment & Plan (1) Hemorrhagic shock: (2) Nausea and vomiting: Presented initially with Anorexia, nausea, and vomiting after colon resection for colon cancer. H/O Caroli's disease -CT ABD:No abscess. No bowel obstruction. Mild left abdominal infiltration which is likely postsurgical. Pneumobilia. A few locules of gas within the gallbladder which is likely related. Minimal gallbladder distention without pericholecystic infiltration. 2.4 x 1.6 cm subcapsular segment 8 hypodensity. In part, this could reflect ductal dilatation. This is suboptimally assessed on this unenhanced exam and comparison with prior imaging studies, if available, is recommended. If no priors, a nonemergent MRI of the liver is recommended. Marked left renal atrophy. No hydronephrosis. -Gall Bladder USD:Stone versus sludge ball within the gallbladder. Mild gallbladder distention. No sonographic Sierra sign. No evidence for acute cholecystitis by sonography. Pneumobilia. No biliary dilatation. -HIDA Scan:Nonvisualization of the gallbladder at 60 minutes. There is delayed visualization of the gallbladder following morphine administration. This indicates patency of the cystic duct, and could indicate biliary dysfunction/chronic cholecystitis. Clinical correlation will be required. -Normal Recent EGD -Status post laparoscopic cholecystectomy on 09/09/2019 complicated by postop acute hemorrhagic shock that was stabilized by a second OR visit Hemoglobin dropped after surgery, mejia was 4.6 . Required 5 PRBC and 2 platelets, FFP. Hemoglobin has been stable after bleeding control. Hemodynamically stable and off pressors Extubated yesterday 09/10/19 Will continue to monitor hemoglobin and hemodynamics Surgery team is on board -Advance diet as tolerated -Plavix still on hold for now -Pulmonary edema on exam. Patient is at net positive 7L over the past 72hr from IVF and blood products. Got IV lasix this morning. Will monitor and diurese as needed. -Blood Cx: No growth to date. Procal was 0.33. Leukocytosis peaked at 25 [likely reactive in the setting of aforementioned events yesterday], currently 17.33 this morning. Antibiotics discontinued Monocytosis noted on differential Peripheral smear: Consistent with nonspecific normochromic, normocytic anemia with monocytosis. Not suggestive of myelodysplastic syndrome or myeloproliferative disorder or hemolytic anemia. Will continue to monitor WBC (3) Metabolic encephalopathy: Acute metabolic encephalopathy secondary to hemorrhagic shock Encephalopathy is resolved as noted above Required intubation. Extubated on 09/10/19 (4) Acute kidney injury superimposed on CKD: EDYTA on CKD IV Likely due to dehydration from poor oral intake Baseline Cr: 1.8 -2.0 Cr: 2.13 today Losartan still on hold Nephrology on board Hypokalemic 3.1. Repleted. Monitor renal function Avoid Nephrotoxic agents (5) Hypertension: Hypotension has resolved. Blood pressure has become elevated. Will continue to monitor and optimize with aid of [employer] Continue hydralazine at increased dose of 50mg tid, amlodipine 10, metoprolol (6) GERD (gastroesophageal reflux disease): Continue Pepcid (7) Lupus: Stable (8) DVT prophylaxis: No pharmacologic prophyaxis due to hemorrhagic shock (9) Discharge planning issues: Primary care follow-up with Dr. Beasley. GI follow-up with [facility]. Will monitor po intake. Once able to tolerate po well and drain is out. Will make plans for discharge Continue PT while inpatient Subjective Patient seen and examined this morning. Reported some nausea this morning. States that she did not like the breakfast. Denied any vomiting. Reports some pain on the right side of abdomen with movement Denied any chest pain, shortness of breath at this time Reports occasional cough, Review of Systems Review of Systems: All systems reviewed and unremarkable except for mentioned above. Physical Exam Physical Exam: General: Alert oriented x3, no acute distress Eyes: PERRL, conjunctivae normal, not pale, anicteric sclerae, EOM intact bilaterally ENMT: External ear and nose normal, oropharynx normal, no plaques noted in oropharynx Neck: Normal visual inspection, no tracheal deviation Respiratory: Normal respiratory effort, no respiratory distress, on 2L/min Nasal cannula, mild bibasilar crackles Cardiovascular: Pulse is RRR. S1 S2 +pedal edema Chest (Breasts): Chest: normal inspection of chest Gastrointestinal (Abdomen): Abdomen is not distended, soft, clean laparoscopic incision sites, bruising noted bilateral lower abd wall improving, non-tender to palpation, no guarding, no palpable hepatosplenomegaly, normal bowel sounds. ANUEL drain with sanguinous drainage Neurologic: Alert and oriented x 3, No focal weakness, sensation grossly intact Psychiatric: Euthymic affect Results & Data Vital Signs (Past 12 Hours) Vital Signs Temp Pulse Pulse Pulse Resp BP BP 12/27/19 09:34 181/69 H 09/12/19 07:12 36.9 C 70 16 197/65 H 09/12/19 03:37 36.8 C 70 17 174/69 H 09/12/19 02:42 36.6 C 77 20 189/69 H 201/65 H 09/11/19 23:59 65 09/11/19 23:46 36.5 C 72 19 157/73 H Pulse Ox 09/12/19 09:34 09/12/19 07:12 94 09/12/19 03:37 92 09/12/19 02:42 94 09/11/19 23:59 09/11/19 23:46 94 Laboratory Results Abnormal lab results 09/09/19 09/11/19 09/11/19 Range/Units 11:40 17:59 20:22 WBC (4.8-10.8) K/uL RBC (4.2-5.4) M/uL Hgb (12.0-16.0) g/dL Hct (37-47) % RDW Std Deviation (36.4-46.3) fL RDW Coeff of Aurelia (11.5-14.5) % Immature Gran # (Auto) (0.00-0.02) K/uL Neut # (Auto) (1.4-6.5) K/uL Scurry # (Auto) (0.11-0.59) K/uL Potassium (3.5-5.1) mmol/L BUN (7-18) mg/dl Creatinine (0.6-1.2) mg/dl Glucose (70-99) mg/dl POC Glucose 147 H 156 H (70-99) Crossmatch See Detail 09/12/19 09/12/19 09/12/19 Range/Units 07:16 07:16 11:48 WBC 17.33 H (4.8-10.8) K/uL RBC 3.56 L (4.2-5.4) M/uL Hgb 10.5 L (12.0-16.0) g/dL Hct 31.7 L (37-47) % RDW Std Deviation 52.3 H (36.4-46.3) fL RDW Coeff of Aurelia 16.2 H (11.5-14.5) % Immature Gran # (Auto) 0.04 H (0.00-0.02) K/uL Neut # (Auto) 13.45 H (1.4-6.5) K/uL Scurry # (Auto) 2.06 H (0.11-0.59) K/uL Potassium 3.1 L (3.5-5.1) mmol/L BUN 43 H (7-18) mg/dl Creatinine 2.13 H (0.6-1.2) mg/dl Glucose 106 H (70-99) mg/dl POC Glucose 114 H (70-99) Crossmatch (1) Hypertension Hypertension type: essential hypertension Qualified Code(s): I10 - Essential (primary) hypertension
[2019-09-12] MEDS: FUROSEMIDE 10 MG in SYRINGE 0 ML IV SCH ×2 (11:46→17:19)
[2019-09-12] MEDS: POTASSIUM CHLORIDE 20 MEQ TABCR PO SCH (20:29)
[2019-09-13] MEDS: HydrALAZINE HCL 20 MG/ML VIAL IV PRN ×3 (04:31→23:11)
[2019-09-13] MEDS: FUROSEMIDE 10 MG in SYRINGE 0 ML IV SCH ×3 (06:14→17:27)
[2019-09-13] MEDS: HYDROCODONE/ACETAMOPHEN 5/325MG TAB PO PRN (06:20)
--- NOTE | 2019-09-13 08:17 | Surgery Progress Note ---
Date of Service September 13, 2019 Assessment & Plan (1) Gallstones: POD 4 lap starla try boost supplements PT/OT, eventual rehab H&H stable seen also by Dr. Francois Subjective trying to increase po, no other c/o Physical Exam Gastrointestinal (Abdomen): Percussion/Palpation: abdomen soft ANUEL drainage decreasing, 65 cc overnight Results & Data Vital Signs (Past 12 Hours) Vital Signs Temp Pulse Pulse Resp BP Pulse Ox 09/13/19 07:49 79 09/13/19 07:12 37.0 C 78 16 182/61 H 94 09/13/19 04:18 36.9 C 70 20 186/71 H 94 09/12/19 23:27 67 09/12/19 23:23 37.0 C 65 18 173/70 H 94 PG Care Time/CCT Total # of Minutes Spent Total Time Spent with Patient: Total time spent is greater than 50% in coordination of care (as documented) at patient's floor/unit and/or counseling patient:
[2019-09-13] MEDS: METOPROLOL TARTRATE 100 MG TAB PO SCH ×2 (08:24→20:06)
[2019-09-13] MEDS: HydrALAZINE TAB 50 MG TAB PO SCH ×3 (08:24→20:06)
[2019-09-13] MEDS: POTASSIUM CHLORIDE 20 MEQ TABCR PO SCH (08:25)
[2019-09-13] MEDS: SERTRALINE HCL 50 MG TABLET PO SCH (08:25)
[2019-09-13] MEDS: AMLODIPINE BESYLATE 5 MG TAB PO SCH (08:26)
[2019-09-13] MEDS: FAMOTIDINE 20 MG TAB PO SCH (08:26)
[2019-09-13 08:28] LABS: Hematocrit (blood only) 29.5 % (37-47); Hemoglobin 9.8 g/dL (12.0-16.0); Mean Corpuscular Hemoglobin 29.6 pg (25-34); Mean Corpuscular Hgb Conc 33.2 g/dL (32-36); Mean Corpuscular Volume 89.1 fL (80-100); Mean Platelet Volume 9.3 fL (7.4-10.4); Platelet Count 250 K/uL (130-400); RDW Coefficient of Variation 16.4 % (11.5-14.5); Red Blood Count 3.31 M/uL (4.2-5.4); White Blood Count 11.33 K/uL (4.8-10.8)
[2019-09-13 08:56] LABS: BUN Creatinine Ratio 21.9 (10-20); Calcium 8.7 mg/dl (8.5-10.1); Creatinine Clr Calc Pharmacy 27.9 ml/min; Est GFR (African American) 29.9; Est GFR (Non-African American) 25.8; Magnesium 2.2 mg/dl (1.8-2.4); Potassium 3.5 mmol/L (3.5-5.1)
[2019-09-13] MEDS ORDERED: FLUCONAZOLE IV SCH (09:00)
[2019-09-13] MEDS ORDERED: LOSARTAN POTASSIUM 50 MG TAB PO SCH (10:15)
--- NOTE | 2019-09-13 10:47 | Nephrology Progress Note ---
Date of Service September 13, 2019 Assessment & Plan (1) Hypertension: recurrent HTN, which was an ongoing issue prior to surgery. she had issues prior to surgery absorbing po meds but did better on IV -Continue hydralazine, metoprolol and amlodipine. -Resume losartan 50 mg daily. No need for potassium supplements since we are starting losartan -daily bmp (2) Acute kidney injury superimposed on CKD: New EDYTA on CKD earlier this admission and on borderline for recurrence; baseline of 1.8-2.0; presenting creatinine 2.6 on 08/30 and peak creatinine same. mejia 1.9 on 09/01; peak at 2.7 09/07 w/ downtrend to 2.2 today, plateaud there since 09/09. poor po intake/N improving creatinine of 1.87 today -daily bmp -BP control as above -nsaid and other nephrotoxin avoidance to continue -was on parenteral nutrition prior to OR; on clears > regular diet now Subjective Patient feels better today denies any pain or shortness of breath. She choked on the potassium p.o. Blood pressure remains high. Review of Systems Review of Systems: All systems reviewed & are unremarkable except as noted in HPI & below Physical Exam Physical Exam: General exam: Appears comfortable, no acute distress HEENT: Pupils are equal and reactive to light Neck: No JVD, neck is supple trachea is midline Respiratory system: Clear breath sounds bilaterally. Gastrointestinal: Abdomen is soft, non distended, non tender, bowel sounds are present. Has a drain in the right lower quadrant CVS: Regular rate and rhythm. No murmurs, rubs or gallops Musculoskeletal: No joint or muscle tenderness Extremities: Non tender, no edema, peripheral pulses are present Neuro: Oriented, no tremors, no focal neurological deficits Skin: No rashes Results & Data Vital Signs (Past 12 Hours) Vital Signs Temp Pulse Pulse Resp BP Pulse Ox 09/13/19 07:49 79 09/13/19 07:12 37.0 C 78 16 182/61 H 94 09/13/19 04:18 36.9 C 70 20 186/71 H 94 09/12/19 23:27 67 09/12/19 23:23 37.0 C 65 18 173/70 H 94 Laboratory Results Laboratory Results - last 24 hr 09/09/19 09/12/19 09/12/19 11:40 11:48 20:33 WBC RBC Hgb Hct MCV MCH MCHC RDW Std Deviation RDW Coeff of Aurelia Plt Count MPV Sodium Potassium Chloride Carbon Dioxide Anion Gap BUN Creatinine Est Cr Clr Drug Dosing Est GFR ( Amer) Est GFR (Non-Af Amer) BUN/Creatinine Ratio Glucose POC Glucose 114 H 108 H Calcium Magnesium Crossmatch See Detail 09/13/19 09/13/19 09/13/19 07:38 08:02 08:02 WBC 11.33 H RBC 3.31 L Hgb 9.8 L Hct 29.5 L MCV 89.1 MCH 29.6 MCHC 33.2 RDW Std Deviation 53.0 H RDW Coeff of Aurelia 16.4 H Plt Count 250 MPV 9.3 Sodium 140 Potassium 3.5 Chloride 107 Carbon Dioxide 26 Anion Gap 6.0 BUN 41 H Creatinine 1.87 H Est Cr Clr Drug Dosing 27.9 Est GFR ( Amer) 29.9 Est GFR (Non-Af Amer) 25.8 BUN/Creatinine Ratio 21.9 H Glucose 96 POC Glucose 92 Calcium 8.7 Magnesium 2.2 Crossmatch (1) Hypertension Hypertension type: essential hypertension Qualified Code(s): I10 - Essential (primary) hypertension
--- NOTE | 2019-09-13 11:13 | Hospitalist Progress Note ---
Date of Service September 13, 2019 Assessment & Plan (1) Hemorrhagic shock: (2) Nausea and vomiting: Presented initially with Anorexia, nausea, and vomiting after colon resection for colon cancer. H/O Caroli's disease -CT ABD:No abscess. No bowel obstruction. Mild left abdominal infiltration which is likely postsurgical. Pneumobilia. A few locules of gas within the gallbladder which is likely related. Minimal gallbladder distention without pericholecystic infiltration. 2.4 x 1.6 cm subcapsular segment 8 hypodensity. In part, this could reflect ductal dilatation. This is suboptimally assessed on this unenhanced exam and comparison with prior imaging studies, if available, is recommended. If no priors, a nonemergent MRI of the liver is recommended. Marked left renal atrophy. No hydronephrosis. -Gall Bladder USD:Stone versus sludge ball within the gallbladder. Mild gallbladder distention. No sonographic Sierra sign. No evidence for acute cholecystitis by sonography. Pneumobilia. No biliary dilatation. -HIDA Scan:Nonvisualization of the gallbladder at 60 minutes. There is delayed visualization of the gallbladder following morphine administration. This indicates patency of the cystic duct, and could indicate biliary dysfunction/chronic cholecystitis. Clinical correlation will be required. -Normal Recent EGD -Status post laparoscopic cholecystectomy on 09/09/2019 complicated by postop acute hemorrhagic shock that was stabilized by a second OR visit Hemoglobin dropped after surgery, mejia was 4.6 . Required 5 PRBC and 2 platelets, FFP. Hemoglobin has been stable after bleeding control. Hemodynamically stable and off pressors Extubated yesterday 09/10/19 Will continue to monitor hemoglobin and hemodynamics Surgery team is on board -Advance diet as tolerated -Plavix still on hold for now -Nausea and vomiting resolved. -Pulmonary edema on exam resolved. -Blood Cx: No growth to date. Procal was 0.33. Leukocytosis peaked at 25 [likely reactive in the setting of aforementioned events yesterday], currently 11.33 this morning. Antibiotics discontinued Discontinue antifungal. No signs of thrush on exam Monocytosis noted on differential Peripheral smear: Consistent with nonspecific normochromic, normocytic anemia with monocytosis. Not suggestive of myelodysplastic syndrome or myeloproliferative disorder or hemolytic anemia. Will continue to monitor WBC (3) Metabolic encephalopathy: Acute metabolic encephalopathy secondary to hemorrhagic shock Encephalopathy is resolved as noted above Required intubation. Extubated on 09/10/19 (4) Acute kidney injury superimposed on CKD: EDYTA on CKD IV Likely due to dehydration from poor oral intake Baseline Cr: 1.8 -2.0 Cr: 1.87 today Resume losartan at 50mg daily Discontinue potassium repletion for now and monitor Nephrology on board Hypokalemic 3.1. Repleted. Monitor renal function Avoid Nephrotoxic agents (5) Hypertension: Hypotension has resolved. Blood pressure has become elevated. Will continue to monitor and optimize with aid of center medical director Continue hydralazine at increased dose of 50mg tid, amlodipine 10, metoprolol Losartan resumed this morning. (6) GERD (gastroesophageal reflux disease): Continue Pepcid (7) Lupus: Stable (8) DVT prophylaxis: No pharmacologic prophyaxis due to hemorrhagic shock OOB per protocol (9) Discharge planning issues: Primary care follow-up with Dr. Beasley. GI follow-up with [facility]. Will monitor po intake. Once able to tolerate po well and drain is out. Will make plans for discharge home with services Continue PT while inpatient Subjective Patient seen and examined this morning. Reports choking on the potassium tablet this morning but was able to swallow it. Reports nausea and cough are resolved. Still has right-sided abdominal pain is intermittent worse with movement but controlled on current pain regimen. Last bowel movement was yesterday night, large volume and black per RN report Denied any fevers, chills Denied any chest pain, palpitation Denied any dysuria, frequency, urgency Review of Systems Review of Systems: All systems reviewed and unremarkable except for mentioned above. Physical Exam Physical Exam: General: Alert oriented x3, no acute distress Eyes: PERRL, conjunctivae normal, not pale, anicteric sclerae, EOM intact bilaterally ENMT: External ear and nose normal, oropharynx normal, no oral thrush noted Neck: Normal visual inspection, no tracheal deviation Respiratory: Normal respiratory effort, no respiratory distress, lung is clear to auscultation no crackles or wheeze Cardiovascular: Pulse is RRR. S1 S2. Trace pedal edema Chest (Breasts): Chest: normal inspection of chest Gastrointestinal (Abdomen): Abdomen is not distended, soft, clean laparoscopic incision sites, bruising noted bilateral lower abd wall improving, non-tender to palpation, no guarding, no palpable hepatosplenomegaly, normal bowel sounds. ANUEL drain with serosanguinous drainage, Dressing mildly soaked. Neurologic: Alert and oriented x 3, No focal weakness, sensation grossly intact Psychiatric: Euthymic affect Results & Data Vital Signs (Past 12 Hours) Vital Signs Temp Pulse Pulse Resp BP Pulse Ox 09/13/19 07:49 79 09/13/19 07:12 37.0 C 78 16 182/61 H 94 09/13/19 04:18 36.9 C 70 20 186/71 H 94 09/12/19 23:27 67 09/12/19 23:23 37.0 C 65 18 173/70 H 94 Laboratory Results Abnormal lab results 09/09/19 09/12/19 09/12/19 Range/Units 11:40 11:48 20:33 WBC (4.8-10.8) K/uL RBC (4.2-5.4) M/uL Hgb (12.0-16.0) g/dL Hct (37-47) % RDW Std Deviation (36.4-46.3) fL RDW Coeff of Aurelia (11.5-14.5) % BUN (7-18) mg/dl Creatinine (0.6-1.2) mg/dl BUN/Creatinine Ratio (10-20) POC Glucose 114 H 108 H (70-99) Crossmatch See Detail 09/13/19 09/13/19 Range/Units 08:02 08:02 WBC 11.33 H (4.8-10.8) K/uL RBC 3.31 L (4.2-5.4) M/uL Hgb 9.8 L (12.0-16.0) g/dL Hct 29.5 L (37-47) % RDW Std Deviation 53.0 H (36.4-46.3) fL RDW Coeff of Aurelia 16.4 H (11.5-14.5) % BUN 41 H (7-18) mg/dl Creatinine 1.87 H (0.6-1.2) mg/dl BUN/Creatinine Ratio 21.9 H (10-20) POC Glucose (70-99) Crossmatch (1) Hypertension Hypertension type: essential hypertension Qualified Code(s): I10 - Essential (primary) hypertension
[2019-09-13] MEDS ORDERED: POTASSIUM CHLORIDE PWD 20 MEQ PACK PO SCH (21:00)
[2019-09-14] MEDS: HydrALAZINE HCL 20 MG/ML VIAL IV PRN (05:34)
[2019-09-14] MEDS: FUROSEMIDE 10 MG in SYRINGE 0 ML IV SCH ×3 (05:34→18:18)
[2019-09-14 06:58] LABS: Hematocrit (blood only) 28.2 % (37-47); Hemoglobin 9.4 g/dL (12.0-16.0); Mean Corpuscular Hemoglobin 29.9 pg (25-34); Mean Corpuscular Hgb Conc 33.3 g/dL (32-36); Mean Corpuscular Volume 89.8 fL (80-100); Mean Platelet Volume 9.3 fL (7.4-10.4); Platelet Count 247 K/uL (130-400); RDW Coefficient of Variation 16.7 % (11.5-14.5); RDW Standard Deviation 54.5 fL (36.4-46.3); Red Blood Count 3.14 M/uL (4.2-5.4); White Blood Count 9.86 K/uL (4.8-10.8)
[2019-09-14 07:34] LABS: BUN Creatinine Ratio 22.7 (10-20); Calcium 8.4 mg/dl (8.5-10.1); Creatinine Clr Calc Pharmacy 26.9 ml/min; Est GFR (African American) 32.2; Est GFR (Non-African American) 27.8; Potassium 3.3 mmol/L (3.5-5.1)
[2019-09-14] MEDS: METOPROLOL TARTRATE 100 MG TAB PO SCH ×2 (08:20→20:28)
[2019-09-14] MEDS: HydrALAZINE TAB 50 MG TAB PO SCH ×3 (08:20→20:29)
[2019-09-14] MEDS: FAMOTIDINE 20 MG TAB PO SCH (08:20)
[2019-09-14] MEDS: SERTRALINE HCL 50 MG TABLET PO SCH (08:20)
[2019-09-14] MEDS: AMLODIPINE BESYLATE 5 MG TAB PO SCH (08:21)
[2019-09-14] MEDS: LOSARTAN POTASSIUM 50 MG TAB PO SCH (08:38)
[2019-09-14] MEDS ORDERED: POTASSIUM CHLORIDE PWD 20 MEQ PACK PO ONE (09:00)
--- NOTE | 2019-09-14 10:20 | Nephrology Progress Note ---
Date of Service September 14, 2019 Assessment & Plan (1) Hypertension: recurrent HTN, which was an ongoing issue prior to surgery. she had issues prior to surgery absorbing po meds but did better on IV -Continue hydralazine, metoprolol and amlodipine. -losartan increased to 100 mg daily. -Patient should get IV potassium chloride 30 mEq today -daily bmp (2) Acute kidney injury superimposed on CKD: New EDYTA on CKD earlier this admission and on borderline for recurrence; baseline of 1.8-2.0; presenting creatinine 2.6 on 08/30 and peak creatinine same. mejia 1.9 on 09/01; peak at 2.7 09/07 w/ downtrend to 2.2 today, plateaud there since 09/09. poor po intake/N improving creatinine of 1.76 today -daily bmp -BP control as above -nsaid and other nephrotoxin avoidance to continue -was on parenteral nutrition prior to OR; on clears > regular diet now Subjective She feels better denies any nausea or vomiting. She is unable to take oral potassium tablets of liquid. Blood pressure remains high Review of Systems Review of Systems: All systems reviewed & are unremarkable except as noted in HPI & below Physical Exam Physical Exam: General exam: Appears comfortable, no acute distress HEENT: Pupils are equal and reactive to light Neck: No JVD, neck is supple trachea is midline Respiratory system: Clear breath sounds bilaterally. Gastrointestinal: Abdomen is soft, non distended, non tender, bowel sounds are present CVS: Regular rate and rhythm. No murmurs, rubs or gallops Musculoskeletal: No joint or muscle tenderness Extremities: Non tender, no edema, peripheral pulses are present Neuro: Oriented, no tremors, no focal neurological deficits Skin: No rashes Results & Data Vital Signs (Past 12 Hours) Vital Signs Temp Pulse Pulse Pulse Resp BP Pulse Ox 09/14/19 08:00 73 09/14/19 07:17 36.9 C 70 16 181/69 H 92 09/14/19 05:30 71 183/61 H 09/14/19 03:31 37.3 C 72 18 171/62 H 95 09/13/19 23:59 73 09/13/19 22:59 37.1 C 73 18 184/66 H 95 Laboratory Results Laboratory Results - last 24 hr 09/13/19 09/14/19 09/14/19 11:32 06:34 06:34 WBC 9.86 RBC 3.14 L Hgb 9.4 L Hct 28.2 L MCV 89.8 MCH 29.9 MCHC 33.3 RDW Std Deviation 54.5 H RDW Coeff of Aurelia 16.7 H Plt Count 247 MPV 9.3 Sodium 141 Potassium 3.3 L Chloride 109 H Carbon Dioxide 28 Anion Gap 5.0 BUN 40 H Creatinine 1.76 H Est Cr Clr Drug Dosing 26.9 Est GFR ( Amer) 32.2 Est GFR (Non-Af Amer) 27.8 BUN/Creatinine Ratio 22.7 H Glucose 92 POC Glucose 110 H Calcium 8.4 L (1) Hypertension Hypertension type: essential hypertension Qualified Code(s): I10 - Essential (primary) hypertension
[2019-09-14] MEDS: POTASSIUM CHLORIDE / WTR 10 MEQ/100 ML PLCT IV SCH ×3 (11:02→12:55)
--- NOTE | 2019-09-14 11:02 | Surgery Progress Note ---
Date of Service September 14, 2019 Assessment & Plan (1) Gallstones: POD#5 laparoscopic cholecystectomy and take-back for bleeding port site Hbg stable Patient tolerating diet Having BM's Encourage activity as tolerates Keep ANUEL drain for now Patient seen and examined with Dr. Francois Subjective Patient says she feels pretty good. She is tolerating a diet. Having + BM's. Physical Exam Physical Exam: awake/alert Constitutional: well developed and well nourished; no acute distress Gastrointestinal (Abdomen): Inspection/Auscultation: + abdominal surgical incision (c/d/i w/ dermabond) and + abdominal surgical drain present (ANUEL with 60cc serosang output) Results & Data Vital Signs (Past 12 Hours) Vital Signs Temp Pulse Pulse Pulse Resp BP Pulse Ox 09/14/19 08:00 73 09/14/19 07:17 36.9 C 70 16 181/69 H 92 09/14/19 05:30 71 183/61 H 09/14/19 03:31 37.3 C 72 18 171/62 H 95 09/13/19 23:59 73 09/13/19 22:59 37.1 C 73 18 184/66 H 95 PG Care Time/CCT Total # of Minutes Spent Total Time Spent with Patient: Total time spent is greater than 50% in coordination of care (as documented) at patient's floor/unit and/or counseling patient:
--- NOTE | 2019-09-14 13:46 | Hospitalist Progress Note ---
Date of Service September 14, 2019 Assessment & Plan (1) Hemorrhagic shock: (2) Nausea and vomiting: Presented initially with Anorexia, nausea, and vomiting after colon resection for colon cancer. H/O Caroli's disease -CT ABD:No abscess. No bowel obstruction. Mild left abdominal infiltration which is likely postsurgical. Pneumobilia. A few locules of gas within the gallbladder which is likely related. Minimal gallbladder distention without pericholecystic infiltration. 2.4 x 1.6 cm subcapsular segment 8 hypodensity. In part, this could reflect ductal dilatation. This is suboptimally assessed on this unenhanced exam and comparison with prior imaging studies, if available, is recommended. If no priors, a nonemergent MRI of the liver is recommended. Marked left renal atrophy. No hydronephrosis. -Gall Bladder USD:Stone versus sludge ball within the gallbladder. Mild gallbladder distention. No sonographic Sierra sign. No evidence for acute cholecystitis by sonography. Pneumobilia. No biliary dilatation. -HIDA Scan:Nonvisualization of the gallbladder at 60 minutes. There is delayed visualization of the gallbladder following morphine administration. This indicates patency of the cystic duct, and could indicate biliary dysfunction/chronic cholecystitis. Clinical correlation will be required. -Normal Recent EGD -Status post laparoscopic cholecystectomy on 09/09/2019 complicated by postop acute hemorrhagic shock that was stabilized by a second OR visit Hemoglobin dropped after surgery, mejia was 4.6 . Required 5 PRBC and 2 platelets, FFP. Hemoglobin has been stable after bleeding control. Hemodynamically stable and off pressors Extubated yesterday 09/10/19 Will continue to monitor hemoglobin and hemodynamics Surgery team is on board -Tolerating regular diet. Due to patient's concern for swallowing pills, she was evaluated by speech therapist. Okay to continue regular diet. -Plavix still on hold for now -Nausea and vomiting resolved. Having regular bowel movement. -We will follow-up with surgeons tomorrow about plan regarding ANUEL drain [drained 165 cc yesterday] -Pulmonary edema on exam resolved. -Blood Cx: No growth to date. Procal was 0.33. Leukocytosis peaked at 25 [likely reactive in the setting of aforementioned events yesterday], currently 11.33 this morning. Antibiotics discontinued Monocytosis noted on differential Peripheral smear: Consistent with nonspecific normochromic, normocytic anemia with monocytosis. Not suggestive of myelodysplastic syndrome or myeloproliferative disorder or hemolytic anemia. Will continue to monitor WBC (3) Metabolic encephalopathy: Acute metabolic encephalopathy secondary to hemorrhagic shock Encephalopathy is resolved as noted above Required intubation. Extubated on 09/10/19 (4) Acute kidney injury superimposed on CKD: EDYTA on CKD IV Baseline Cr: 1.8 -2.0 Cr: 1.76 today Potassium was 3.3 today. Patient refused powder potassium chloride. Repletion given IV. Nephrology on board Continue to monitor renal function Avoid Nephrotoxic agents (5) Hypertension: Hypotension has resolved. Blood pressure has become elevated. Will continue to monitor and optimize with aid of search engine optimization consultant Continue hydralazine at increased dose of 50mg tid, amlodipine 10, metoprolol Losartan resumed at 50 mg yesterday. Increase to 100 mg this morning which is patient's home dose (6) GERD (gastroesophageal reflux disease): Continue Pepcid (7) Lupus: Stable (8) DVT prophylaxis: No pharmacologic prophyaxis due to hemorrhagic shock OOB per protocol (9) Discharge planning issues: Primary care follow-up with Dr. Beasley. GI follow-up with [facility]. 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 Referral made to [facility] per notes. Will follow-up tomorrow regarding disposition Subjective Patient reports feeling better. Does report occasional right-sided abdominal pain at surgical site especially with movement. Having regular bowel movement and tolerating diet well. She does feel concerned about swallowing pills due to episode when she choked on potassium pill yesterday. Review of Systems Review of Systems: All systems reviewed and unremarkable except for mentioned above. Physical Exam Physical Exam: General: Alert oriented x3, no acute distress Eyes: PERRL, conjunctivae normal, EOM intact bilaterally ENMT: External ear and nose normal, oropharynx normal, no oral thrush noted Neck: Normal visual inspection, no tracheal deviation Respiratory: Normal respiratory effort, no respiratory distress, lung is clear to auscultation no crackles or wheeze Cardiovascular: Pulse is RRR. S1 S2. Chest (Breasts): Chest: normal inspection of chest Gastrointestinal (Abdomen): Abdomen is not distended, soft, clean laparoscopic incision sites, bruising noted bilateral lower abd wall improving, non-tender to palpation, no guarding, no palpable hepatosplenomegaly, normal bowel sounds. ANUEL drain with serosanguinous drainage, Dressing over surgical site Neurologic: Alert and oriented x 3, No focal weakness, sensation grossly intact Psychiatric: Euthymic affect Results & Data Vital Signs (Past 12 Hours) Vital Signs Temp Pulse Pulse Pulse Resp BP Pulse Ox 09/14/19 11:24 37.1 C 68 16 179/66 H 95 09/14/19 08:00 73 09/14/19 07:17 36.9 C 70 16 181/69 H 92 09/14/19 05:30 71 183/61 H 09/14/19 03:31 37.3 C 72 18 171/62 H 95 Laboratory Results Abnormal lab results 09/14/19 09/14/19 Range/Units 06:34 06:34 RBC 3.14 L (4.2-5.4) M/uL Hgb 9.4 L (12.0-16.0) g/dL Hct 28.2 L (37-47) % RDW Std Deviation 54.5 H (36.4-46.3) fL RDW Coeff of Aurelia 16.7 H (11.5-14.5) % Potassium 3.3 L (3.5-5.1) mmol/L Chloride 109 H (98-107) mmol/L BUN 40 H (7-18) mg/dl Creatinine 1.76 H (0.6-1.2) mg/dl BUN/Creatinine Ratio 22.7 H (10-20) Calcium 8.4 L (8.5-10.1) mg/dl (1) Hypertension Hypertension type: essential hypertension Qualified Code(s): I10 - Essential (primary) hypertension
[2019-09-15] MEDS: HydrALAZINE HCL 20 MG/ML VIAL IV PRN ×3 (03:48→23:40)
[2019-09-15] MEDS: FUROSEMIDE 10 MG in SYRINGE 0 ML IV SCH ×3 (05:48→17:48)
[2019-09-15 07:37] LABS: Hematocrit (blood only) 31.6 % (37-47); Hemoglobin 10.4 g/dL (12.0-16.0); Mean Corpuscular Hemoglobin 29.9 pg (25-34); Mean Corpuscular Hgb Conc 32.9 g/dL (32-36); Mean Corpuscular Volume 90.8 fL (80-100); Mean Platelet Volume 9.3 fL (7.4-10.4); Platelet Count 287 K/uL (130-400); RDW Coefficient of Variation 16.5 % (11.5-14.5); RDW Standard Deviation 54.2 fL (36.4-46.3); Red Blood Count 3.48 M/uL (4.2-5.4); White Blood Count 9.21 K/uL (4.8-10.8)
[2019-09-15 08:12] LABS: BUN Creatinine Ratio 21.2 (10-20); Calcium 8.8 mg/dl (8.5-10.1); Creatinine Clr Calc Pharmacy 27.6 ml/min; Est GFR (African American) 33.4; Est GFR (Non-African American) 28.8; Potassium 3.5 mmol/L (3.5-5.1)
[2019-09-15] MEDS: AMLODIPINE BESYLATE 5 MG TAB PO SCH (08:34)
[2019-09-15] MEDS: FAMOTIDINE 20 MG TAB PO SCH (08:34)
[2019-09-15] MEDS: LOSARTAN POTASSIUM 50 MG TAB PO SCH (08:34)
[2019-09-15] MEDS: SERTRALINE HCL 50 MG TABLET PO SCH (08:34)
[2019-09-15] MEDS: METOPROLOL TARTRATE 100 MG TAB PO SCH ×2 (08:34→20:20)
--- NOTE | 2019-09-15 10:50 | Surgery Progress Note ---
Date of Service September 15, 2019 Assessment & Plan (1) Gallstones: POD#6 lap starla and take-back for port site bleeding Hbg stable today 10.4 Patient's nausea and po intake much improved since lap starla Pain managed with prn medication Will remove ANUEL drain today She is okay to resume her home baby aspirin and plavix today Stable for discharge from surgical standpoint pending medicine clearance Will leave instructions for patient to follow up in clinic within 1-[address] Madsen Subjective Patient says she is feeling well, other than she did not get much sleep last night. She is tolerating a diet without nausea/vomiting. Some right sided incisional pain, otherwise well controlled. She is having bowel function. Physical Exam Physical Exam: awake/alert Gastrointestinal (Abdomen): Inspection/Auscultation: + abdominal surgical incision (c/d/i with dermabond overtop) and + abdominal surgical drain present (60cc sangenous output) Percussion/Palpation: abdomen soft Results & Data Vital Signs (Past 12 Hours) Vital Signs Temp Pulse Pulse Pulse Resp BP Pulse Ox 09/15/19 07:48 37.1 C 68 20 189/64 H 95 09/15/19 03:47 37.1 C 67 18 189/64 H 94 09/14/19 23:10 37.1 C 64 66 18 172/64 H 94 PG Care Time/CCT Total # of Minutes Spent Total Time Spent with Patient: Total time spent is greater than 50% in coordination of care (as documented) at patient's floor/unit and/or counseling patient:
--- NOTE | 2019-09-15 12:27 | Hospitalist Progress Note ---
Date of Service September 15, 2019 Assessment & Plan (1) Hemorrhagic shock: (2) Nausea and vomiting: Presented initially with Anorexia, nausea, and vomiting after colon resection for colon cancer. H/O Caroli's disease -CT ABD:No abscess. No bowel obstruction. Mild left abdominal infiltration which is likely postsurgical. Pneumobilia. A few locules of gas within the gallbladder which is likely related. Minimal gallbladder distention without pericholecystic infiltration. 2.4 x 1.6 cm subcapsular segment 8 hypodensity. In part, this could reflect ductal dilatation. This is suboptimally assessed on this unenhanced exam and comparison with prior imaging studies, if available, is recommended. If no priors, a nonemergent MRI of the liver is recommended. Marked left renal atrophy. No hydronephrosis. -Gall Bladder USD:Stone versus sludge ball within the gallbladder. Mild gallbladder distention. No sonographic Sierra sign. No evidence for acute cholecystitis by sonography. Pneumobilia. No biliary dilatation. -HIDA Scan:Nonvisualization of the gallbladder at 60 minutes. There is delayed visualization of the gallbladder following morphine administration. This indicates patency of the cystic duct, and could indicate biliary dysfunction/chronic cholecystitis. Clinical correlation will be required. -Normal Recent EGD -Status post laparoscopic cholecystectomy on 09/09/2019 complicated by postop acute hemorrhagic shock that was stabilized by a second OR visit Hemoglobin dropped after surgery, mejia was 4.6 . Required 5 PRBC and 2 platelets, FFP. Hemoglobin has been stable after bleeding control. Hemodynamically stable and off pressors Extubated yesterday 09/10/19 Will continue to monitor hemoglobin and hemodynamics Surgery team is on board -Tolerating regular diet. Nausea and vomiting resolved. Having regular bowel movement -ANUEL drain removed today. -Can resume home aspirin and Plavix tomorrow -Pulmonary edema on exam resolved. -Blood Cx: No growth to date. Procal was 0.33. Leukocytosis peaked at 25 [likely reactive in the setting of aforementioned events yesterday], currently 11.33 this morning. Antibiotics discontinued Monocytosis noted on differential Peripheral smear: Consistent with nonspecific normochromic, normocytic anemia with monocytosis. Not suggestive of myelodysplastic syndrome or myeloproliferative disorder or hemolytic anemia. Will continue to monitor WBC (3) Metabolic encephalopathy: Acute metabolic encephalopathy secondary to hemorrhagic shock Encephalopathy is resolved as noted above Required intubation. Extubated on 09/10/19 (4) Acute kidney injury superimposed on CKD: EDYTA on CKD IV Baseline Cr: 1.8 -2.0 Cr: 1.71 today Potassium was 3.5 today. Nephrology on board Continue to monitor renal function Avoid Nephrotoxic agents (5) Hypertension: Blood pressure has been poorly controlled since after stabilization of hemorrhagic shock Will continue to monitor and optimize with aid of tree marker Continue hydralazine 50mg tid, amlodipine 10, metoprolol Losartan was increased to 100 mg yesterday. Will continue to monitor (6) GERD (gastroesophageal reflux disease): Continue Pepcid (7) Lupus: Stable (8) DVT prophylaxis: No pharmacologic prophyaxis due to hemorrhagic shock OOB per protocol (9) Discharge planning issues: Primary care follow-up with Dr. Beasley. GI follow-up with [facility]. Continue PT while inpatient Plan to discharge patient tomorrow once blood pressure control is optimized Subjective Patient has no new complaints today. Reports that surgical site pain is much better. ANUEL drain removed by surgeons today. Tolerating diet well. Having regular bowel movement. Review of Systems Review of Systems: All systems reviewed and unremarkable except for mentioned above. Physical Exam Physical Exam: General: Alert oriented x3, no acute distress Eyes: PERRL, conjunctivae normal, EOM intact bilaterally ENMT: External ear and nose normal, oropharynx normal, no oral thrush noted Neck: Normal visual inspection, no tracheal deviation Respiratory: Normal respiratory effort, no respiratory distress, lung is clear to auscultation no crackles or wheeze Cardiovascular: Pulse is RRR. S1 S2. Chest (Breasts): Chest: normal inspection of chest Gastrointestinal (Abdomen): Abdomen is not distended, soft, clean laparoscopic incision sites, non-tender to palpation, no guarding, no palpable hepatosplenomegaly, normal bowel sounds. Clean dressing over surgical site Neurologic: Alert and oriented x 3, No focal weakness, sensation grossly intact Psychiatric: Euthymic affect Results & Data Vital Signs (Past 12 Hours) Vital Signs Temp Pulse Pulse Resp BP Pulse Ox 09/15/19 11:28 36.6 C 66 20 185/67 H 94 09/15/19 07:48 37.1 C 68 20 189/64 H 95 09/15/19 03:47 37.1 C 67 18 189/64 H 94 (1) Hypertension Hypertension type: essential hypertension Qualified Code(s): I10 - Essential (primary) hypertension
--- NOTE | 2019-09-15 18:32 | Nephrology Progress Note ---
Date of Service September 15, 2019 Assessment & Plan (1) Hypertension: recurrent HTN, which was an ongoing issue prior to surgery. she had issues prior to surgery absorbing po meds but did better on IV -Continue hydralazine, metoprolol and amlodipine. Got one dose of hydralazine 75mg and BP dropped to 128 systolic. Will go back to 50mg tid -losartan increased to 100 mg daily. -Monitor and replace potassium as needed -daily bmp (2) Acute kidney injury superimposed on CKD: New EDYTA on CKD earlier this admission and on borderline for recurrence; baseline of 1.8-2.0; presenting creatinine 2.6 on 08/30 and peak creatinine same. mejia 1.9 on 09/01; peak at 2.7 09/07 w/ downtrend to 2.2 today, plateaued there since 09/09. poor po intake/N improving creatinine of 1.7 today -daily bmp -BP control as above -nsaid and other nephrotoxin avoidance to continue -was on parenteral nutrition prior to OR; on clears > regular diet now Subjective She feels better. No SOB. BP is improving Review of Systems Review of Systems: All systems reviewed & are unremarkable except as noted in HPI & below Physical Exam Physical Exam: General exam: Appears comfortable, no acute distress HEENT: Pupils are equal and reactive to light Neck: No JVD, neck is supple trachea is midline Respiratory system: Clear breath sounds bilaterally. Gastrointestinal: Abdomen is soft, non distended, non tender, bowel sounds are present CVS: Regular rate and rhythm. No murmurs, rubs or gallops Musculoskeletal: No joint or muscle tenderness Extremities: Non tender, no edema, peripheral pulses are present Neuro: Oriented, no tremors, no focal neurological deficits Skin: No rashes Results & Data Vital Signs (Past 12 Hours) Vital Signs Temp Pulse Pulse Resp BP Pulse Ox 09/15/19 15:02 36.2 C L 71 20 128/65 96 09/15/19 15:01 65 09/15/19 11:28 36.6 C 66 20 185/67 H 94 09/15/19 07:48 37.1 C 68 20 189/64 H 95 Laboratory Results Laboratory Results - last 24 hr 09/15/19 09/15/19 07:15 07:15 WBC 9.21 RBC 3.48 L Hgb 10.4 L Hct 31.6 L MCV 90.8 MCH 29.9 MCHC 32.9 RDW Std Deviation 54.2 H RDW Coeff of Aurelia 16.5 H Plt Count 287 MPV 9.3 Sodium 140 Potassium 3.5 Chloride 107 Carbon Dioxide 26 Anion Gap 8.0 BUN 36 H Creatinine 1.71 H Est Cr Clr Drug Dosing 27.6 Est GFR ( Amer) 33.4 Est GFR (Non-Af Amer) 28.8 BUN/Creatinine Ratio 21.2 H Glucose 95 Calcium 8.8 (1) Hypertension Hypertension type: essential hypertension Qualified Code(s): I10 - Essential (primary) hypertension
[2019-09-15] MEDS: HydrALAZINE TAB 50 MG TAB PO SCH (20:21)
[2019-09-16] MEDS: HydrALAZINE HCL 20 MG/ML VIAL IV PRN ×2 (03:56→08:20)
[2019-09-16] MEDS: FUROSEMIDE 10 MG in SYRINGE 0 ML IV SCH (05:35)
[2019-09-16] MEDS: LOSARTAN POTASSIUM 50 MG TAB PO SCH (08:20)
[2019-09-16] MEDS: HydrALAZINE TAB 50 MG TAB PO SCH (08:20)
[2019-09-16] MEDS: AMLODIPINE BESYLATE 5 MG TAB PO SCH (08:20)
[2019-09-16] MEDS: SERTRALINE HCL 50 MG TABLET PO SCH (08:20)
[2019-09-16] MEDS: METOPROLOL TARTRATE 100 MG TAB PO SCH (08:20)
[2019-09-16] MEDS: FAMOTIDINE 20 MG TAB PO SCH (08:20)
[2019-09-16] MEDS ORDERED: ASPIRIN 81 MG ECTAB PO SCH (09:00)
[2019-09-16] MEDS ORDERED: CLOPIDOGREL BISULFATE 75 MG TAB PO SCH (09:00)
[2019-09-16] MEDS ORDERED: CHLORTHALIDONE 25 MG TAB PO SCH (09:00)
[2019-09-16 09:25] LABS: BUN Creatinine Ratio 20.3 (10-20); Calcium 8.6 mg/dl (8.5-10.1); Creatinine Clr Calc Pharmacy 24.1 ml/min; Est GFR (African American) 28.3; Est GFR (Non-African American) 24.4; Potassium 3.3 mmol/L (3.5-5.1)
[2019-09-16] MEDS ORDERED: POTASSIUM CHLORIDE 20 MEQ/15 ML UDC PO STA (10:13)
--- NOTE | 2019-09-16 11:33 | Discharge Summary ---
Date of Service September 16, 2019 Admission HPI Per Admitting Provider This is a 73yo F with a PMH of recent colon cancer diagnosis s/p resection [facility] on Aug 05, lupus, CKD IV, Caroli's disease with GI stones, mood disorder and history of CVA in 2017 without deficits who presents to ED with ongoing nausea and decreased appetite since colon surgery. Patient states that following colon resection, all food "tastes like salt" and patient has also had decreased fluid intake. Has had ongoing nausea with intermittent bouts of emesis. Followed up with PCP the first week of August and was sent to [facility] for IV fluids and blood pressure management and ended up being admitted for 5 days. Was started on amlodipine and hydralazine for better BP control (nifedipine was discontinued) and also received Cipro and Flagyl for UTI. Since discharge home on 08/28, patient has continued to have poor appetite, nausea and 2 episodes of bilious vomit. Denies any fever, chills, hematemesis, abdominal pain or constipation. Has been having regular r unny brown stools since colon resection they are becoming more formed. Also has some lightheadedness with movement and position changes as well as dull frontal headache. Denies any visual changes, cough, shortness of breath or wheezing. Follows with Dr. Brown and Jacinta MONTOYA of GI service for Caroli's disease with most recent imaging performed in February 2019 with limited abdominal ultrasound showing stable cyst of right liver and gallbladder sludge. Admission Exam Per Admitting Provider General Appearance: WD/WN, vitals as above, NAD, lying in bed, pleasant, conversing easily Head: normocephalic, atraumatic Eyes: normal inspection, PERRL, conjunctivae normal, anicteric sclerae ENT: external ear and nose normal, oropharynx normal Neck: trachea midline, no thyromegaly normal visual inspection Respiratory: normal respiratory effort, lungs clear to auscultation, no wheeze, rales, rhonchi. Normal insp/exp effort, no accessory muscle use Cardiovascular: regular rate, rhythm, systolic murmur, normal peripheral pulses. Vessels: no JVD or carotid bruit Chest: normal inspection of chest Abdomen/GI: active bowel sounds, soft, nontender, no hepatosplenomegaly. + Healing abdominal incision, no erythema or drainage Extremities/Musculoskelatal: no cyanosis or clubbing, extremities motor strength 5/5 Neurologic: PERRL, EOMI, accommodation nl, no face palsy, no dysarthria, CN's II-XI intact bilaterally and moves all extremities Psychiatric: A+Ox3, euthymic affect Skin: no rashes, normal color, warm/dry Principal Diagnosis Nausea, vomiting Chronic cholecystitis Laparoscopic cholecystectomy Postop hemorrhagic shock Acute on chronic kidney disease Hypertension Discharge Exam General: Alert oriented x3, no acute distress Eyes: PERRL, conjunctivae normal, EOM intact bilaterally ENMT: External ear and nose normal, oropharynx normal Neck: Normal visual inspection, no tracheal deviation Respiratory: Normal respiratory effort, no respiratory distress, lung is clear to auscultation no crackles or wheeze Cardiovascular: Pulse is RRR. S1 S2. Chest (Breasts): Chest: normal inspection of chest Gastrointestinal (Abdomen): Abdomen is not distended, soft, clean laparoscopic incision sites, non-tender to palpation, no guarding, no palpable hepatosplenomegaly, normal bowel sounds. Clean dressing over surgical site Neurologic: Alert and oriented x 3, No focal weakness, sensation grossly intact Psychiatric: Euthymic affect Discharge Data Allergies Allergy/AdvReac Type Severity Reaction Status Date / Time Iodinated Contrast Media Allergy Severe HIVES/DIFFICULTY Verified 08/30/19 16:38 SWALLOWING Consultations 08/30/19 17:05 ED Decision to Admit Stat 08/30/19 19:58 Consult Case Management - Discharge Planning Routine 08/31/19 08:00 Consult Gastroenterology Routine Consult General Surgery Routine Consult Nephrology Routine 09/03/19 04:16 Consult Anesthesiology Routine 09/09/19 12:18 Consult Bow Maker Production Routine Procedures Performed Operation Date: 09/09/19 07:15 Actual Procedures p Laparoscopic Cholecystectomy - Ronny Madsen DO Operation Date: 09/09/19 09:00 Actual Procedures p Diagnostic Laparoscopy, Control of Bleeding, Abdominal Washout - Ronny Madsen DO Ordered Studies 08/30/19 15:04 CT abd pelvis wo con Stat 1. No abscess. No bowel obstruction. Mild left abdominal infiltration which is likely postsurgical. 2. Pneumobilia. A few locules of gas within the gallbladder which is likely related. Minimal gallbladder distention without pericholecystic infiltration. 3. 2.4 x 1.6 cm subcapsular segment 8 hypodensity. In part, this could reflect ductal dilatation. This is suboptimally assessed on this unenhanced exam and comparison with prior imaging studies, if available, is recommended. If no priors, a nonemergent MRI of the liver is recommended. 4. Marked left renal atrophy. No hydronephrosis. 08/30/19 16:36 US gallbladder Stat 1. Stone versus sludge ball within the gallbladder. Mild gallbladder distention. No sonographic Sierra sign. No evidence for acute cholecystitis by sonography. 2. Pneumobilia. No biliary dilatation 09/02/19 11:52 US venous doppler LE BI Routine No evidence of deep venous thrombosis. 09/04/19 13:07 CT abd pelvis oral and IV con Urgent 1. There are no acute infectious or inflammatory findings in the abdomen or pelvis. 2. Pneumobilia is noted and similar to previous. 3. There is unchanged appearance of a 2.3 cm serpiginous cystic structure identified in the left lobe of liver. This is of indeterminant significance and may represent a lobulated cyst or possibly a focally dilated bile duct. 4. Suspect emphysema. 09/09/19 11:45 US point of care ultrasound Urgent 09/11/19 07:54 US point of care ultrasound Urgent PATHOLOGY REPORT FINAL DIAGNOSIS GALLBLADDER (CHOLECYSTECTOMY): 1. MODERATE, DIFFUSE CHRONIC CHOLECYSTITIS IS SEEN. 2. SCATTERED BENIGN LYMPHOID AGGREGATES ARE NOTED IN THE LAMINA PROPRIA. 3. A 1.0 X 0.8 X 0.6 CM LYMPH NODE OF CALOT REVEALS SINUS HISTIOCYTOSIS. 4. NO TUMOR SEEN. Hospital Course (1) Nausea and vomiting: (2) Chronic cholecystitis: (3) S/P laparoscopic cholecystectomy: (4) Post-op bleeding: (5) Hemorrhagic shock: Presented initially with Anorexia, nausea, and vomiting after colon resection for colon cancer. H/O Caroli's disease -CT ABD:No abscess. No bowel obstruction. Mild left abdominal infiltration which is likely postsurgical. Pneumobilia. A few locules of gas within the gallbladder which is likely related. Minimal gallbladder distention without pericholecystic infiltration. 2.4 x 1.6 cm subcapsular segment 8 hypodensity. In part, this could reflect ductal dilatation. This is suboptimally assessed on this unenhanced exam and comparison with prior imaging studies, if available, is recommended. If no priors, a nonemergent MRI of the liver is recommended. Marked left renal atrophy. No hydronephrosis. -Gall Bladder USD:Stone versus sludge ball within the gallbladder. Mild gallbladder distention. No sonographic Sierra sign. No evidence for acute cholecystitis by sonography. Pneumobilia. No biliary dilatation. -HIDA Scan:Nonvisualization of the gallbladder at 60 minutes. There is delayed visualization of the gallbladder following morphine administration. This indicates patency of the cystic duct, and could indicate biliary dysfunction/chronic cholecystitis. Clinical correlation will be required. -Normal Recent EGD -Status post laparoscopic cholecystectomy on 09/09/2019 complicated by postop acute hemorrhagic shock that was stabilized by a second OR visit Hemoglobin dropped after surgery, mejia was 4.6 . Required 5 PRBC and 2 platelets, FFP. Hemoglobin has been stable after bleeding control. Hemodynamically stable and off pressors Required intubation during the episode change in mental status, was managed briefly in the ICU and successfully extubated on 09/10/19 Will continue to monitor hemoglobin and hemodynamics -Tolerating regular diet. Nausea and vomiting resolved. Having regular bowel movement -Aspirin and Plavix had been on hold since. Resumed today -Had pulmonary edema after resuscitation, likely from IV fluids and blood products. Pulmonary edema resolved with diuresis -Blood Cx: No growth to date. Procal was 0.33. Leukocytosis peaked at 25 [likely reactive in the setting of aforementioned events], currently resolved. Was on IV antibiotics during this time and later discontinued. Patient has monocytosis noted on differential WBC Peripheral smear: Consistent with nonspecific normochromic, normocytic anemia with monocytosis. Not suggestive of myelodysplastic syndrome or myeloproliferative disorder or hemolytic anemia. Discharged to rehab Patient is to call surgeon office for follow up (6) Metabolic encephalopathy: Acute metabolic encephalopathy secondary to hemorrhagic shock Encephalopathy is resolved as noted above Required intubation Extubated on 09/10/19 (7) Acute kidney injury superimposed on CKD: EDYTA on CKD IV Baseline Cr: 1.8 -2.0 Creatinine on admission was 2.59 Cr: 1.96 today Patient was manage with the aluminum siding applicator Patient will follow-up with nephrology outpatient Avoid Nephrotoxic agents (8) Hypertension: Blood pressure has been poorly controlled since after stabilization of hemorrhagic shock Hypertension management was done with the aluminum siding applicator Being discharged on losartan 100 mg daily, amlodipine 10 mg daily, hydralazine 50 mg 3 times daily Started on chlorthalidone 25 mg daily. Discharge on po potassium 10mg daily. To check BMP in 3 days to monitor kidney function and electrolytes (9) GERD (gastroesophageal reflux disease): Continue Pepcid (10) Lupus: Stable Total Time Total Time Spent Total Time Spent (In Minutes): 35 Total Time Includes: Examination of the Patient, Discharge Planning, Medication Reconciliation and Communication With Other Providers Discharge Plan Discharge Items Patient Disposition: Transfer Residential Fac Reason For Visit: NAUSEA, POOR APPETITE, EDYTA ON CKD Discharge Diagnosis: Nausea, vomiting Chronic cholecystitis Laparoscopic cholecystectomy Postop hemorrhagic shock Acute on chronic kidney disease Hypertension Condition on Discharge: Good Activity: Per Instructions section Lifting: No more than 10 pounds Bathing Comment: may shower Exercise/Sports: Wait until after follow-up appointment Non-emergency contact: Primary Care Provider, Surgeon and Fan Balancer Call non-emergency contact if: you have any medication questions and your symptoms worsen Follow-up/Referrals: Ronny Madsen DO [Surgeon] - (Please call to schedule an appointment within 1-2 weeks) Jhoana Crawford MD, PhD [Physician] - 09/25/19 12:10 pm Tai Beasley [Primary Care Provider] - (Please call your Primary Doctor for follow up within 7 days) Diet: Regular and Low Fat Ambulatory Orders: Basic Metabolic Panel (Routine) Timeframe: 3 Days Location: Determined by Patient Ordered By: Nallely Acosta Attending Provider Instructions: Ms. Davies. You came to the hospital complaining of persistent nausea, vomiting and poor oral intake since after your recent colon cancer surgery at [facility]. You had extensive evaluation with multiple scans which did not show any signs of bowel obstruction but showed signs of gallbladder disease. You were started on antibiotics. You were evaluated by the furs salesperson and the surgeons. You had your gallbladder removed [laparoscopic cholecystectomy]. This was complicated by significant bleeding with low blood pressures change in mental status. He required about 5 units of blood as your blood levels dropped significantly. You were put on the ventilator and had to go back for a second operation to stop the bleeding. This was successfully stopped and you were managed briefly in the ICU. Your blood levels have remained stable afterwards. You also had worsening of your chronic kidney problem [acute on chronic kidney disease]. This was co-managed with her aluminum siding applicator. It is very important that you follow-up with your aluminum siding applicator on discharge. After low blood pressure associated with your bleeding, blood pressure has remained persistently high. Certain adjustments were made to you blood pressure medications. You are also started on a new medication called chlorthalidone. Your blood pressure management will continue at the rehab facility and also with your primary doctor and aluminum siding applicator. The final medications you are on for blood pressure should be sent to your pharmacy on discharge from rehab. You are also started on daily potassium due to low levels of potassium. Please do the blood test [basic metabolic panel] in 3 days to assess your kidney function and potassium levels. Your aspirin and plavix were held due to the bleeding but have now been resumed. You have not required your home xanax for a long time while in the hospital. So, this has been discontinued for now. Please call the surgeon for follow-up within 1 to 2 weeks Please follow-up with your primary care doctor. It was a pleasure taking care of you Pending Studies at Discharge: No Stand-Alone Forms: My [facility] Skilled Items Patient informed of condition?: Yes DNR: No Discharge Level of Care: Skilled Communicable Disease: No Discharge Prognosis: Stable Lines: None Urinary Catheter: No Medications and DC Order Prescriptions: New acetaminophen [Mapap (acetaminophen)] 325 mg Tablet 650 mg PO Q4H PRN (Reason: pain) 30 Days Qty: 100 RF: 0 chlorthalidone 25 mg Tablet 25 mg PO QAM 30 Days Qty: 30 RF: 0 potassium chloride 20 mEq/15 mL liquid 10 meq PO DAILY 30 Days Qty: 225 RF: 0 Continued hydralazine 25 mg Tablet 50 mg PO TID RF: 0 amlodipine 10 mg Tablet 10 mg PO DAILY RF: 0 metoprolol tartrate [Lopressor] 100 mg tablet 100 mg PO BID RF: 0 sertraline 50 mg Tablet 50 mg PO DAILY RF: 0 cyanocobalamin (vitamin B-12) 1,000 mcg Tablet 1,000 mcg PO QAM RF: 0 clopidogrel 75 mg Tablet 75 mg PO QAM RF: 0 aspirin 81 mg Tablet,Delayed Release (Dr/Ec) 81 mg PO HS RF: 0 ranitidine HCl 150 mg Capsule 150 mg PO BID RF: 0 losartan 100 mg Tablet 100 mg PO QAM RF: 0 Discontinued tramadol 50 mg Tablet 50 mg PO Q6H PRN (Reason: Pain) RF: 0 alprazolam 0.5 mg tablet 0.25 mg PO BID PRN (Reason: Anxiety) RF: 0 alprazolam 0.5 mg Tablet 0.5 mg PO HS RF: 0 Discharge Orders: Discharge Order (Routine); Ordered 09/16/19 Ordered By: Nallely Costello Admission Data Admit Date/Time: 08/30/19 18:27 Attending Provider: Nallely Costello I. Admit Provider: Addy Whitehead Primary Care Provider: Tai Beasley Other Providers: Rasta Medrano ; Kay Brown ; Donna Paniagua ; Ronny Madsen ; Natanael Beltran ; Jason De Guzman ; Felipe Hernandez ; [facility] Other Interventions: Discharge Summary Assessment (RN) Last Done: 09/16/19 11:22 DC Date/Time DO NOT enter until pt leaves facility: 09/16/19 14:17
== END 2019-09-16 14:17 | DRG 417 ==
LOC: ED 14:14 → 2N 18:27 → SUATTDRO 18:27 → 2N 19:31 → 1E 09-09 11:46 → 2W 09-11 10:24

== ENCOUNTER 2019-09-29 09:36 | Inpatient (IN) ==
[2019-09-29] MEDS ORDERED: NITROGLYCERIN 2% OINTMENT 30GM TUBE EXT ONE (10:34)
[2019-09-29 10:48] LABS: Basophils # (auto) 0.04 K/uL (0-0.2); Basophils % (auto) 0.3 %; Eosinophils # (auto) 0.13 K/uL (0-0.5); Hematocrit (blood only) 30.7 % (37-47); Immature Granulocytes # (auto) 0.29 K/uL (0.00-0.02); Immature Granulocytes % (auto) 2.2 %; Lymphocytes # (auto) 2.84 K/uL (1.2-3.4); Lymphocytes % (auto) 21.7 %; Mean Corpuscular Hemoglobin 29.5 pg (25-34); Mean Corpuscular Hgb Conc 32.6 g/dL (32-36); Mean Corpuscular Volume 90.6 fL (80-100); Mean Platelet Volume 8.8 fL (7.4-10.4); Monocytes # (auto) 1.32 K/uL (0.11-0.59); Monocytes % (auto) 10.1 %; Neutrophils # (auto) 8.48 K/uL (1.4-6.5); Neutrophils % (auto) 64.7 %; Platelet Count 682 K/uL (130-400); RDW Coefficient of Variation 17.5 % (11.5-14.5); RDW Standard Deviation 58.3 fL (36.4-46.3); Red Blood Count 3.39 M/uL (4.2-5.4)
--- NOTE | 2019-09-29 11:05 | XRay Report ---
SINGLE VIEW CHEST CLINICAL HISTORY: Dyspnea. FINDINGS: An AP, portable, upright chest radiograph is compared to study dated 09/10/2019. The examin ation is degraded by portable technique and patient rotation. The heart is enlarged noting atheroscle rotic calcification of the thoracic aorta. There is pulmonary vascular congestion. There are small pl eural effusions with bibasilar consolidation. No pneumothorax is seen. The skeletal structures are os teopenic. The bony thorax is grossly intact. Cholecystectomy clips are noted in the right upper quadr ant. IMPRESSION: 1. Cardiomegaly with evidence of congestive failure. 2. Small pleural effusions with bibasilar consolidation. ACT 112: Negative or not required by law. Electronically signed by: Chato Siddiqui M.D. 09/29/2019 11:03 AM
[2019-09-29 11:14] LABS: Alanine Aminotransferase 65 U/L (12-78); Albumin Globulin Ratio 0.4 (0.9-2); Albumin Level 2.1 gm/dl (3.4-5.0); Alkaline Phosphatase 176 U/L (45-117); BUN Creatinine Ratio 16.7 (10-20); Bilirubin,Total 0.6 mg/dl (0.2-1); Blood Urea Nitrogen 26 mg/dl (7-18); Calcium 8.3 mg/dl (8.5-10.1); Carbon Dioxide 21 mmol/L (21-32); Chloride 115 mmol/L (98-107); Creatinine Clr Calc Pharmacy 29.5 ml/min; Est GFR (African American) 36.5; Est GFR (Non-African American) 31.5; Globulin 4.7 gm/dl (2.5-4.0); Glucose 104 mg/dl (70-99); Sodium 141 mmol/L (136-145); Total Protein 6.8 gm/dl (6.4-8.2); Troponin I 0.017 ng/ml (0-0.045)
[2019-09-29] MEDS ORDERED: FUROSEMIDE 40 MG/4 ML VIAL IV STA (11:26)
[2019-09-29 11:50] LABS: Potassium 4.1 mmol/L (3.5-5.1)
--- NOTE | 2019-09-29 11:51 | Emergency Department Note ---
ED Visit Note I saw this patient in conjunction with Dr. Tovar, and agree with the impression and assessment as outlined in her documentation. For all pertinent findings and details regarding this patient's care please see her documentation. Resident Activity Tracking Resident Involvement: Resident Care Provided Care Provided: Adult ED
[2019-09-29] MEDS ORDERED: HydrALAZINE HCL 20 MG/ML VIAL IV STA (12:26)
--- NOTE | 2019-09-29 13:30 | History & Physical Report ---
Date of Service September 29, 2019 Assessment & Plan (1) Acute respiratory failure with hypoxia: This is a 74yo F with a PMH of recent colon cancer diagnosis s/p resection [facility] on Aug 05, recent laparoscopic cholecystectomy on 09/09/19 at [facility] complicated by acute hemorrhagic shock, C diff infection, lupus, CKD IV, Caroli's disease, mood disorder and history of CVA in 2017 without deficits who presents from [facility] to ED with hypoxia and shortness of breath x 2 days. -Hypoxic at 87% on room air - does not require home O2. Now saturating at 98% on 2L NC in setting of acute decompensated HF -Continue to monitor closely (2) Acute decompensated heart failure: Developed BLE edema and SOB yesterday. Has been receiving IV fluids at [facility] due to worsening renal function -CXR with cardiomegaly with evidence of congestive failure and small pleural effusions with bibasilar consolidation -Given 40mg PO Lasix at [facility] prior to transfer to ED. Given another 40mg IV Lasix in ED -Strict I&Os, low sodium diet, daily weights, 2D echo ordered -Also ordering RLE duplex to evaluate for DVT (3) C. difficile colitis: Diagnosed ~1 week ago at [facility] -Still endorsing 8 episodes of diarrhea daily -Contact precautions, continue oral vanco (4) Uncontrolled hypertension: History of poorly controlled BP. Recently managed with hydralazine, amlodipine and metoprolol during previous admission - chlorthalidone added to regimen. Losartan held 2/2 EDYTA -Coming from [facility], patient was receiving hydralazine, amlodipine and losartan. Chlorthalidone discontinued? Unable to reach RN for clarification but will continue trying -BP improved from 204/77 to 185/72 since arrival. Took home meds late and was also given 10mg Hydralazine in ED -Continue to monitor closely (5) CKD (chronic kidney disease), stage IV: (6) Atrophy of left kidney: Baseline Cr ~1.8-2. Cr currently 1.58 -Cr recently elevated to 2.6 at [facility] on 09/24 -Follows with outpatient nephrology -Monitor kidney function closely (7) Carolis disease: [facility] DVT Ppx: SQ heparin Code status: FULL PCP: Ramos Dispo: Admitted to PCU. Discharge planning, PT and OT ordered. Patient seen in collaboration with Dr. Yu. Please see addendum. History of Present Illness Chief Complaint: Shortness of breath, headache Primary Care Provider: Tai Bennettterrence This is a 74yo F with a PMH of recent colon cancer diagnosis s/p resection [facility] on Aug 05, recent laparoscopic cholecystectomy on 09/09/19 at [facility] complicated by acute hemorrhagic shock, C diff infection, lupus, CKD IV, Caroli's disease, mood disorder and history of CVA in 2017 without deficits who presents from [facility] to ED with hypoxia and shortness of breath since yesterday morning. Patient woke up yesterday feeling unable to catch her breath was found to be hypoxic at 87%. Denies any fever, chills, cough, wheezing or chest pain. Was placed on supplemental oxygen with some improvement but continued to feel short of breath today. Had been given IV fluids daily at [facility] due to up-trending creatinine labs since arrival 2 weeks prior (peak Cr ~ 2.6 on 09/24 with baseline ~09/24-2). Endorses BLE edema and R calf pain. Has gained approximately 5 pounds in past week. No documented history of CHF or recent 2D echo. Had been started on chlorthalidone for BP control near the end of previous admission due to poorly controlled HTN. This medication was discontinued at [facility] (will continue trying to get further clarification via phone). Was given 40 mg of p.o. Lasix this morning before being sent to ED for further evaluation. Also noted to have a headache this morning with elevated BP with SBP ~190. Of note, also was found to have C diff infection 7 days ago and has been receiving oral vanco. Still endorsing ~8 daily episodes of diarrhea. Denies fever, chills, nausea, vomiting or abdominal pain. Allergies Allergy/AdvReac Type Severity Reaction Status Date / Time Iodinated Contrast Media Allergy Severe HIVES/DIFFICULTY Verified 09/29/19 10:52 SWALLOWING Home Medications Home Medications Medication Instructions Recorded Confirmed Type aspirin 81 mg PO HS 08/19/18 09/29/19 History clopidogrel 75 mg PO QAM 08/19/18 09/29/19 History cyanocobalamin (vitamin B-12) 1,000 mcg PO QAM 08/19/18 09/29/19 History losartan 100 mg PO QAM 08/19/18 09/29/19 History amlodipine 10 mg PO DAILY 08/30/19 09/29/19 History hydralazine 50 mg PO TID 08/30/19 09/29/19 History metoprolol tartrate [Lopressor] 100 mg PO BID 08/30/19 09/29/19 History sertraline 50 mg PO DAILY 08/30/19 09/29/19 History acetaminophen [Mapap 650 mg PO Q4H PRN 30 Days #100 tab 09/16/19 09/29/19 Rx (acetaminophen)] Lactobacillus acidoph-L.bulgar 1 tab PO TIDM 09/29/19 09/29/19 History famotidine 20 mg PO DAILY 09/29/19 09/29/19 History potassium chloride 10 meq PO DAILY 09/29/19 09/29/19 History pkr-gvb-Gm-gci-Ja-shr-carbohyd 1 ea PO BID 09/29/19 09/29/19 History [DripDrop] vancomycin 125 mg PO Q6 09/29/19 09/29/19 History Past Med/Surg History Medical History (Updated 09/29/19 @ 14:30 by Tika Sterling PA-C) Atrophy of left kidney C. difficile colitis (Acute) Cancer MULTIPLE SKIN CANCER REMOVALS (RADIATION FOR SKIN CANCER/UPPER LIP) Carolis disease (Chronic) CKD (chronic kidney disease), stage IV (Chronic) Endometriosis GERD (gastroesophageal reflux disease) (Chronic) History of CVA (cerebrovascular accident) (Chronic) 2016, no residual deficits Hyperlipidemia Hypertension (Chronic) Lupus (Chronic) Migraine Mood disorder Osteoarthritis Surgical History (Updated 09/29/19 @ 14:24 by Tika Sterling PA-C) History of colon resection (Chronic) Aug 05 2019 at [facility]. Patient stated she had surgery early in the morning and didn't remember waking up until 1 AM. She is unaware of how long the procedure was and she was not intubated post-op. History of colonoscopy History of esophagogastroduodenoscopy (EGD) History of tonsillectomy History of tooth extraction History of total abdominal hysterectomy and bilateral salpingo-oophorectomy S/P laparoscopic cholecystectomy (09/09/19) Laparoscopic Cholecystectomy Dr. 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 Physical Exam Physical Exam: General Appearance: WD/WN, vitals as above, NAD, appears chronically ill, pleasant, conversing easily Head: normocephalic, atraumatic Eyes: normal inspection, PERRL, conjunctivae normal, anicteric sclerae ENT: external ear and nose normal, oropharynx normal Neck: trachea midline, no thyromegaly normal visual inspection Respiratory: normal respiratory effort, bibasilar rales, no wheeze or rhonchi. Normal insp/exp effort, no accessory muscle use Cardiovascular: regular rate, rhythm, systolic murmur, normal peripheral pulses, 2+ BLE edema Chest: normal inspection of chest Abdomen/GI: Healing incisions on abdomen with small dressings in place. Scattered ecchymosis. Normal bowel sounds, soft, nontender, no hepatosplenomegaly Extremities/Musculoskeletal: no cyanosis or clubbing, extremities motor strength 5/5 Neurologic: PERRL, EOMI, accommodation nl, no face palsy, no dysarthria, CN's II-XI intact bilaterally and moves all extremities Psychiatric: A+Ox3, euthymic affect Skin: no rashes, normal color, warm/dry Results & Data Vital Signs (Past 12 Hours) Vital Signs Temp Pulse Pulse Resp BP BP Pulse Ox 09/29/19 13:07 72 16 180/75 H 98 09/29/19 11:43 71 24 204/77 H 96 09/29/19 11:00 73 18 170/81 H 95 09/29/19 09:57 37.2 C 74 20 198/73 H 90 Laboratory Results Short CBC 09/29/19 Range/Units 10:40 WBC 13.10 H (4.8-10.8) K/uL Hgb 10.0 L (12.0-16.0) g/dL Hct 30.7 L (37-47) % Plt Count 682 H (130-400) K/uL BMP 09/29/19 09/29/19 10:40 11:25 Sodium 141 Potassium TNP 4.1 Chloride 115 H Carbon Dioxide 21 BUN 26 H Creatinine 1.58 H Glucose 104 H Calcium 8.3 L Cardiac Enzymes 09/29/19 Range/Units 10:40 Troponin I 0.017 (0-0.045) ng/ml Liver Function 09/29/19 09/29/19 Range/Units 10:40 11:25 Total Bilirubin 0.6 (0.2-1) mg/dl AST 99 H (15-37) U/L ALT 65 (12-78) U/L Alkaline Phosphatase 176 H (45-117) U/L Albumin 2.1 L (3.4-5.0) gm/dl Diagnostic Findings CXR: IMPRESSION: 1. Cardiomegaly with evidence of congestive failure. 2. Small pleural effusions with bibasilar consolidation. Supervising Physician Co-Signing Physician Notes Pt was seen and examined. Agreed with Tika HIGGINS exam, assessment and plan. 74yo F with a PMH of recent colon cancer diagnosis s/p resection [facility] on Aug 05, recent laparoscopic cholecystectomy on 09/09/19 at [facility] complicated by acute hemorrhagic shock, C diff infection, lupus, CKD IV, Caroli's disease, mood disorder and history of CVA in 2017 without deficits presents from [facility] to the ER with hypoxia and worsening shortness of breath. Pt said that she has been having recurrent diarrhea. She does not know if she was getting the diuretic in the last few days. CXR showed cardiomegaly with evidence of congestive failure. Received Lasix 40mg oral at [facility], then an additional 40mg IV in the ER. Will monitor I/O. Will get an echo in am. Will consult cardiology. Will assess in am for additional IV lasix. Will monitor electrolytes while getting diuretic. Continue monitor closely. MD Aimee
[2019-09-29] MEDS ORDERED: ACETAMINOPHEN 325 MG TAB PO PRN (14:42)
--- NOTE | 2019-09-29 15:03 | Emergency Department Note ---
Entered by Anahi Dan acting as a scribe for Rosie Tovar MD History of Present Illness General Chief complaint: Illness Time Seen by Provider: 09/29/19 10:26 Source: patient History of Present Illness Onset (ago): day(s) 2 Location: left (lung) and right (lung) Severity: similar to prior episodes Pain Consistency: + other (persistent) Quality: + other (shortness of breath) Exacerbated By: + other (lying flat. IV fluids) Associated symptoms: + nausea/vomiting, + shortness of breath and + other (lower extremity swelling); no fever/chills Treatments prior to arrival: other (supplemental oxygen) The patient is a 74 year old female presenting to the Emergency Department complaining of persistent shortness of breath starting 2 days ago. The patient reports that she has been short of breath. She states that she recently had a colon resection and was diagnosed with pneumonia shortly after. She explains that she also was recently diagnosed with C. diff and has been taking Vancomycin PO for this. She notes that she recently received IV fluids that caused her lower extremities to swell, making her short of breath. She adds that when she lays flat, her shortness of breath worsens. The patient reports that she vomited once this morning after taking fluids for her morning medications but that she was able to drink afterwards. She states that she normally doesnt use supplemental oxygen at home but received supplemental oxygen via nasal cannula [employer]. The patient denies recent fevers and chills. Home Medications Home Medications Medication Instructions Recorded Confirmed Type aspirin 81 mg PO HS 08/19/18 09/29/19 History clopidogrel 75 mg PO QAM 08/19/18 09/29/19 History cyanocobalamin (vitamin B-12) 1,000 mcg PO QAM 08/19/18 09/29/19 History losartan 100 mg PO QAM 08/19/18 09/29/19 History amlodipine 10 mg PO DAILY 08/30/19 09/29/19 History metoprolol tartrate [Lopressor] 100 mg PO BID 08/30/19 09/29/19 History sertraline 50 mg PO DAILY 08/30/19 09/29/19 History acetaminophen [Mapap 650 mg PO Q4H PRN 30 Days #100 tab 09/16/19 09/29/19 Rx (acetaminophen)] DripDrop 1 ea PO BID 09/29/19 09/29/19 History famotidine 20 mg PO DAILY 09/29/19 09/29/19 History potassium chloride 10 meq PO DAILY 09/29/19 09/29/19 History Lactobacillus acidoph-L.bulgar 1 tab PO TIDM 10 Days #30 tab 10/01/19 Rx chlorthalidone 25 mg PO DAILY #30 tab 10/01/19 Rx hydralazine 75 mg PO TID 30 Days #135 tab 10/01/19 Rx vancomycin 125 mg PO Q6 #8 cap 10/01/19 Rx Allergies Allergy/AdvReac Type Severity Reaction Status Date / Time Iodinated Contrast Media Allergy Severe HIVES/DIFFICULTY Verified 09/29/19 10:52 SWALLOWING Past Med/Surg History Medical History Atrophy of left kidney C. difficile colitis (Acute) Cancer MULTIPLE SKIN CANCER REMOVALS (RADIATION FOR SKIN CANCER/UPPER LIP) Carolis disease (Chronic) CKD (chronic kidney disease), stage IV (Chronic) Endometriosis GERD (gastroesophageal reflux disease) (Chronic) History of CVA (cerebrovascular accident) (Chronic) 2016, no residual deficits Hyperlipidemia Hypertension (Chronic) Lupus (Chronic) Migraine Mood disorder Osteoarthritis Surgical History History of colon resection (Chronic) Aug 05 2019 at [facility]. Patient stated she had surgery early in the morning and didn't remember waking up until 1 AM. She is unaware of how long the procedure was and she was not intubated post-op. History of colonoscopy History of esophagogastroduodenoscopy (EGD) History of tonsillectomy History of tooth extraction History of total abdominal hysterectomy and bilateral salpingo-oophorectomy S/P laparoscopic cholecystectomy (09/09/19) Laparoscopic Cholecystectomy Dr. 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 and A total of 10 systems reviewed and were otherwise negative Physical Exam Vital Signs Vital Signs - 24 hr 09/29/19 09:57 09/29/19 11:00 09/29/19 11:43 Temperature 37.2 C Temperature Source Oral Pulse Rate 74 Pulse Rate [Finger] 73 71 Respiratory Rate 20 18 24 Blood Pressure 198/73 H Blood Pressure [Right Arm] 170/81 H 204/77 H Blood Pressure Mean 114 Blood Pressure Mean [Right Arm] 110 119 Pulse Oximetry 90 95 96 Oxygen Delivery Method Room Air Nasal Cannula Nasal Cannula Oxygen Flow Rate 2 2 Sepsis Recent Fever Within 48 Hours No Sepsis New/Unexplained Change in Mental Status No Sepsis Action Taken by Nursing No Action Required 09/29/19 13:07 Temperature Temperature Source Pulse Rate Pulse Rate [Finger] 72 Respiratory Rate 16 Blood Pressure Blood Pressure [Right Arm] 180/75 H Blood Pressure Mean Blood Pressure Mean [Right Arm] 110 Pulse Oximetry 98 Oxygen Delivery Method Nasal Cannula Oxygen Flow Rate 2 Sepsis Recent Fever Within 48 Hours Sepsis New/Unexplained Change in Mental Status Sepsis Action Taken by Nursing Vital signs reviewed. Patient is hypertensive. General: Well-appearing elderly female, in no significant distress. Nasal cannula in place. HEENT: No scleral icterus, PERRLA, neck supple. Atraumatic. Cardiovascular: Regular rate and rhythm, no extra sounds. Pulmonary: Crackles at the bases bilaterally. Normal work of breathing. Abdomen: Soft, nontender, nondistended, positive bowel sounds. Musculoskeletal: 2+ pitting edema to bilateral lower extremities. Atraumatic. Neurologic: Patient awake alert and oriented x 3 Skin: Warm, dry, no rash Course Course 1015: The patient was evaluated in room B7, and a complete history and physical examination were performed. 1200: I reevaluated the patient at this time. 1224: I discussed the patient's case with Tika Sterling PA-C. Dr. Roberts [facility] hospitalist will evaluate the patient for further management. Administered Medications Discontinued Medications Amlodipine Besylate (Norvasc) 10 mg PO DAILY [facility] Stop: 10/30/19 08:59 Last Admin: 10/01/19 07:33 Dose: 10 mg Documented by: [id number] Admin: 09/30/19 08:39 Dose: 10 mg Documented by: [id number] Aspirin (Ecotrin Ectab) 81 mg PO HS [facility] Stop: 10/29/19 20:59 Last Admin: 09/30/19 21:46 Dose: 81 mg Documented by: [id number] Admin: 09/29/19 21:27 Dose: 81 mg Documented by: [id number] Clopidogrel Bisulfate (Plavix) 75 mg PO [facility] Stop: 10/30/19 08:59 Last Admin: 10/01/19 07:34 Dose: 75 mg Documented by: [id number] Admin: 09/30/19 08:38 Dose: 75 mg Documented by: [id number] Cyanocobalamin (Vitamin B-12) 1,000 mcg PO [facility] Stop: 10/30/19 08:59 Last Admin: 10/01/19 07:34 Dose: 1,000 mcg Documented by: [id number] Admin: 09/30/19 08:40 Dose: 1,000 mcg Documented by: [id number] Famotidine (Pepcid) 20 mg PO DAILY [facility] Stop: 10/30/19 08:59 Last Admin: 10/01/19 07:38 Dose: 20 mg Documented by: [id number] Admin: 09/30/19 08:38 Dose: 20 mg Documented by: [id number] Furosemide (Lasix) 40 mg IV NOW [facility] Stop: 09/29/19 11:27 Last Admin: 09/29/19 11:41 Dose: 40 mg Documented by: [id number] Heparin Sodium (Porcine) (Heparin Sodium (Porcine)) 5,000 units SQ Q8 [facility] Stop: 10/29/19 21:59 Last Admin: 10/01/19 05:54 Dose: 5,000 units Documented by: [id number] Cosigned by: [id number] Admin: 09/30/19 22:08 Dose: 5,000 units Documented by: [id number] Cosigned by: [id number] Admin: 09/30/19 13:14 Dose: 5,000 units Documented by: [id number] Cosigned by: [id number] Admin: 09/30/19 05:57 Dose: 5,000 units Documented by: [id number] Cosigned by: [id number] Admin: 09/29/19 21:27 Dose: 5,000 units Documented by: [id number] Cosigned by: [id number] Hydralazine HCl (Hydralazine Hcl) 10 mg IV NOW [facility] Stop: 09/29/19 12:27 Last Admin: 09/29/19 12:34 Dose: 10 mg Documented by: [id number] Hydralazine HCl (Apresoline) 50 mg PO TID [facility] Stop: 10/29/19 20:59 Last Admin: 09/30/19 13:13 Dose: 50 mg Documented by: [id number] Admin: 09/30/19 08:38 Dose: 50 mg Documented by: [id number] Admin: 09/29/19 21:27 Dose: 50 mg Documented by: [id number] Hydralazine HCl (Apresoline) 10 mg PO Q8H PRN PRN Reason: SBP >170 Stop: 10/29/19 15:44 Last Admin: 10/01/19 07:35 Dose: 10 mg Documented by: [id number] Admin: 10/01/19 05:54 Dose: 10 mg Documented by: [id number] Hydralazine HCl (Apresoline) 75 mg PO TID [facility] Stop: 10/30/19 13:59 Last Admin: 10/01/19 13:11 Dose: 75 mg Documented by: [id number] Admin: 10/01/19 13:08 Dose: 75 mg Documented by: [id number] Admin: 10/01/19 07:32 Dose: 75 mg Documented by: [id number] Admin: 09/30/19 21:45 Dose: 75 mg Documented by: [id number] Admin: 09/30/19 13:55 Dose: 75 mg Documented by: [id number] Magnesium Sulfate/Dextrose (Magnesium Sulfate / D5w) 1 gm in 100 mls @ 100 mls/hr IV Q1H [facility] Stop: 10/01/19 10:14 Last Admin: 10/01/19 12:53 Dose: 100 mls/hr Documented by: [id number] Infusion: 10/01/19 11:56 Dose: 100 mls/hr Documented by: [id number] Admin: 10/01/19 10:56 Dose: 100 mls/hr Documented by: [id number] Lactobacillus Acidophilus (Floranex) 1 tab PO TIDM [facility] Stop: 10/29/19 16:59 Last Admin: 10/01/19 13:10 Dose: 1 tab Documented by: [id number] Admin: 10/01/19 07:34 Dose: 1 tab Documented by: [id number] Admin: 09/30/19 18:00 Dose: 1 tab Documented by: [id number] Admin: 09/30/19 11:07 Dose: 1 tab Documented by: [id number] Admin: 09/30/19 08:40 Dose: 1 tab Documented by: [id number] Admin: 09/29/19 17:14 Dose: 1 tab Documented by: [id number] Losartan Potassium (Cozaar) 100 mg PO QAM [facility] Stop: 10/30/19 08:59 Last Admin: 10/01/19 07:36 Dose: 100 mg Documented by: [id number] Admin: 09/30/19 08:39 Dose: 100 mg Documented by: [id number] Metoprolol Tartrate (Lopressor) 100 mg PO BID [facility] Stop: 10/29/19 20:59 Last Admin: 10/01/19 07:38 Dose: 100 mg Documented by: [id number] Admin: 09/30/19 21:46 Dose: 100 mg Documented by: [id number] Admin: 09/30/19 08:39 Dose: 100 mg Documented by: [id number] Admin: 09/29/19 21:27 Dose: 100 mg Documented by: [id number] Nitroglycerin (Nitro-Bid 2%) 0.5 inch EXT NOW ONE Stop: 09/29/19 10:35 Last Admin: 09/29/19 11:16 Dose: 0.5 inch Documented by: [id number] Potassium Chloride (Klor-Con M10) 10 meq PO DAILY [facility] Stop: 10/30/19 08:59 Last Admin: 10/01/19 07:37 Dose: 10 meq Documented by: [id number] Admin: 09/30/19 08:37 Dose: 10 meq Documented by: [id number] Potassium Chloride (Klor-Con M20) 40 meq PO NOW STA Stop: 09/30/19 08:09 Last Admin: 09/30/19 08:37 Dose: Not Given Documented by: [id number] Potassium Chloride (Klor-Con M10) 30 meq PO NOW [facility] Stop: 09/30/19 09:27 Last Admin: 09/30/19 09:51 Dose: 30 meq Documented by: [id number] Raspberry (Raspberry) 5 ml PO Q6 [facility] Stop: 10/13/19 17:59 Last Admin: 10/01/19 13:11 Dose: 5 ml Documented by: [id number] Admin: 10/01/19 05:54 Dose: 5 ml Documented by: [id number] Admin: 09/30/19 23:50 Dose: 5 ml Documented by: [id number] Admin: 09/30/19 18:00 Dose: 5 ml Documented by: [id number] Admin: 09/30/19 11:07 Dose: 5 ml Documented by: [id number] Admin: 09/30/19 05:58 Dose: 5 ml Documented by: [id number] Admin: 09/30/19 01:11 Dose: 5 ml Documented by: [id number] Admin: 09/29/19 17:13 Dose: 5 ml Documented by: [id number] Sertraline HCl (Zoloft) 50 mg PO DAILY [facility] Stop: 10/30/19 08:59 Last Admin: 10/01/19 07:35 Dose: 50 mg Documented by: [id number] Admin: 09/30/19 08:38 Dose: 50 mg Documented by: [id number] Vancomycin HCl (Vancomycin Hcl) 125 mg PO Q6 [facility] Stop: 10/09/19 17:59 Last Admin: 10/01/19 13:10 Dose: 125 mg Documented by: [id number] Admin: 10/01/19 05:53 Dose: 125 mg Documented by: [id number] Admin: 09/30/19 23:51 Dose: 125 mg Documented by: [id number] Admin: 09/30/19 18:00 Dose: 125 mg Documented by: [id number] Admin: 09/30/19 11:07 Dose: 125 mg Documented by: [id number] Admin: 09/30/19 05:58 Dose: 125 mg Documented by: [id number] Admin: 09/30/19 01:11 Dose: 125 mg Documented by: [id number] Admin: 09/29/19 17:13 Dose: 125 mg Documented by: [id number] Critical Care Time Critical Care Time: Yes Total Critical Care Time: 35 I have personally spent greater than 35 minutes of critical care time in the direct management of this patient. This includes bedside care, interpretation of diagnostic studies, and testing, discussion with consultants, patient, and family members, and other required patient management activities. This 35 minutes is in excess of all separately billable procedures. Medical Decision Making Differential Diagnosis Differential diagnoses includes but is not limited to pneumonia, bronchitis, COPD/Asthma exacerbation, pneumothorax, pulmonary embolism, congestive heart failure, acute coronary syndrome. Medical Records Attestation: I reviewed the patient's medical records. Home Medications Current Medication List: was personally reviewed by me Laboratory Data Attestation: I reviewed the patient's lab results. Result diagrams: 10/01/19 07:27 10/01/19 07:27 Lab Results 09/29/19 09/29/19 09/29/19 Range/Units 10:40 10:40 11:25 WBC 13.10 H (4.8-10.8) K/uL RBC 3.39 L (4.2-5.4) M/uL Hgb 10.0 L (12.0-16.0) g/dL Hct 30.7 L (37-47) % MCV 90.6 (80-100) fL MCH 29.5 (25-34) pg MCHC 32.6 (32-36) g/dL RDW Std Deviation 58.3 H (36.4-46.3) fL RDW Coeff of Aurelia 17.5 H (11.5-14.5) % Plt Count 682 H (130-400) K/uL MPV 8.8 (7.4-10.4) fL Immature Gran % (Auto) 2.2 % Neut % (Auto) 64.7 % Lymph % (Auto) 21.7 % Jasper % (Auto) 10.1 % Eos % (Auto) 1.0 % Baso % (Auto) 0.3 % Immature Gran # (Auto) 0.29 H (0.00-0.02) K/uL Neut # (Auto) 8.48 H (1.4-6.5) K/uL Lymph # (Auto) 2.84 (1.2-3.4) K/uL Jasper # (Auto) 1.32 H (0.11-0.59) K/uL Eos # (Auto) 0.13 (0-0.5) K/uL Baso # (Auto) 0.04 (0-0.2) K/uL Sodium 141 (136-145) mmol/L Potassium TNP 4.1 Chloride 115 H (98-107) mmol/L Carbon Dioxide 21 (21-32) mmol/L Anion Gap 5.0 (3-11) BUN 26 H (7-18) mg/dl Creatinine 1.58 H (0.6-1.2) mg/dl Est Cr Clr Drug Dosing 29.5 ml/min Est GFR ( Amer) 36.5 Est GFR (Non-Af Amer) 31.5 BUN/Creatinine Ratio 16.7 (10-20) Glucose 104 H (70-99) mg/dl Calcium 8.3 L (8.5-10.1) mg/dl Total Bilirubin 0.6 (0.2-1) mg/dl AST 99 H (15-37) U/L ALT 65 (12-78) U/L Alkaline Phosphatase 176 H (45-117) U/L Troponin I 0.017 (0-0.045) ng/ml Total Protein 6.8 (6.4-8.2) gm/dl Albumin 2.1 L (3.4-5.0) gm/dl Globulin 4.7 H (2.5-4.0) gm/dl Albumin/Globulin Ratio 0.4 L (0.9-2) Imaging Data Radiologist's Impression: Radiology results as stated below per my review and the radiologist's interpretation: SINGLE VIEW CHEST CLINICAL HISTORY: Dyspnea. FINDINGS: An AP, portable, upright chest radiograph is compared to study dated 09/10/2019. The examination is degraded by portable technique and patient ro tation. The heart is enlarged noting atherosclerotic calcification of the thoracic aorta. There is pulmonary vascular congestion. There are small pleural effusions with bibasilar consolidation. No pneumothorax is seen. The skeletal structures are osteopenic. The bony thorax is grossly intact. Cholecystectomy clips are noted in the right upper quadrant. IMPRESSION: 1. Cardiomegaly with evidence of congestive failure. 2. Small pleural effusions with bibasilar consolidation. ACT 112: Negative or not required by law. Electronically signed by: Chato Siddiqui M.D. 09/29/2019 11:03 AM US venous doppler LE RT CLINICAL HISTORY: R calf pain COMPARISON STUDY: 09/02/2019 FINDINGS: Real-time and color flow Doppler imaging were performed. Flow was seen within the femoral, popliteal and calf veins with no intraluminal thrombus demonstrated. The saphenous vein is patent. IMPRESSION: No evidence of right lower extremity DVT. ACT 112: Negative or not required by law. Electronically signed by: Uriah Tyler M.D. 09/30/2019 8:19 AM Dictated: 09/30/19816 Transcribed: 09/30/19816 ECG Data Attestation: I personally reviewed and interpreted this ECG as follows: Indication: + SOB/dyspnea Rate (beats per minute): 72 ECG Intervals/blocks: no Normal QT-c (QT-c 462. ) ECG [place]: + Normal ECG ST segments: no ST depression and no ST elevation ECG Findings: no PACs and no PVCs Blood Pressure Blood Pressure Findings: Elevated blood pressure Blood Pressure Disposition: further management by hospitalist MDM Narrative This patient was evaluated and appeared to be no distress on nasal cannula oxygen. Patient was placed on the monitor technician and noted to be markedly hypertensive. Patient was given 1/2 inch of nitroglycerin paste to the chest wall. Chest x-ray confirms congestive change. Laboratory work reveals a mild elevation of the creatinine at 1.58. Troponin is 0.017. Patient does have a mild leukocytosis at 13. Patient was given 40 mg of IV Lasix. Blood pressure remained elevated and 10 mg of IV hydralazine was ordered. Dopplers of the bilateral lower extremities are negative for DVT. I did explain my findings to the patient. She agrees with the plan for inpatient management. Patient will be evaluated by the hospitalist service for further management. Impression & Plan CHF (congestive heart failure), Hypertension Discharge Plan Visit Data *Final* Discharge Date/Time: 09/29/19 14:22 Chief Complaint: Illness ED Provider: Rosie Tovar ED Midlevel Provider: Colten Hernandez Discharge Problem: CHF (congestive heart failure), Hypertension Patient Disposition: Admitted As Inpatient Discharge Instructions Interventions: ED Discharge Assessment Last Done: 09/29/19 14:22 Discharge Problem: CHF (congestive heart failure) Qualifiers: Heart failure type: unspecified Heart failure chronicity: acute on chronic Qualified Code(s): I50.9 - Heart failure, unspecified Hypertension Qualifiers: Hypertension type: essential hypertension Qualified Code(s): I10 - Essential (primary) hypertension The scribe's documentation has been prepared under my direction and personally reviewed by me in its entirety. I confirm that the note above accurately reflects all work, treatment, procedures, and medical decision making performed by me.
--- NOTE | 2019-09-29 15:59 | Electrocardiogram Report ---
Test Reason : Blood Pressure : / mmHG Vent. Rate : 072 BPM Atrial Rate : 072 BPM P-R Int : 140 ms QRS Dur : 082 ms QT Int : 422 ms P-R-T Axes : 037 026 051 degrees QTc Int : 462 ms Normal sinus rhythm Normal ECG When compared with ECG of 30-AUG-2019 15:05, No significant change was found Confirmed by Devaughn Diaz ([id number]) on 09/29/2019 3:59:03 PM Referred By: Confirmed By:Devaughn Diaz
[2019-09-29] MEDS: VANCOMYCIN HCL 125 MG/2.5ML SOLN PO SCH (17:13)
[2019-09-29] MEDS: RASPBERRY SYRUP 5 ML UDP PO SCH (17:13)
[2019-09-29] MEDS: LACTOBACILLUS ACIDOPHILUS (FLORANEX) TAB PO SCH (17:14)
[2019-09-29] MEDS ORDERED: [UNRECOGNIZED DRUG - OTHER] PO SCH (21:00)
[2019-09-29] MEDS: HydrALAZINE TAB 50 MG TAB PO SCH (21:27)
[2019-09-29] MEDS: ASPIRIN 81 MG ECTAB PO SCH (21:27)
[2019-09-29] MEDS: METOPROLOL TARTRATE 100 MG TAB PO SCH (21:27)
[2019-09-29] MEDS: HEPARIN SOD 5,000 UNIT/0.5 ML VIAL SQ SCH (21:27)
[2019-09-30] MEDS: VANCOMYCIN HCL 125 MG/2.5ML SOLN PO SCH ×5 (01:11→23:51)
[2019-09-30] MEDS: RASPBERRY SYRUP 5 ML UDP PO SCH ×5 (01:11→23:50)
[2019-09-30] MEDS: HEPARIN SOD 5,000 UNIT/0.5 ML VIAL SQ SCH ×3 (05:57→22:08)
[2019-09-30 06:02] LABS: Hematocrit (blood only) 27.3 % (37-47); Hemoglobin 9.3 g/dL (12.0-16.0); Mean Corpuscular Hemoglobin 30.5 pg (25-34); Mean Corpuscular Hgb Conc 34.1 g/dL (32-36); Mean Corpuscular Volume 89.5 fL (80-100); Mean Platelet Volume 8.6 fL (7.4-10.4); Platelet Count 531 K/uL (130-400); RDW Coefficient of Variation 17.2 % (11.5-14.5); RDW Standard Deviation 56.5 fL (36.4-46.3); Red Blood Count 3.05 M/uL (4.2-5.4); White Blood Count 9.97 K/uL (4.8-10.8)
[2019-09-30 06:42] LABS: BUN Creatinine Ratio 17.8 (10-20); Calcium 8.2 mg/dl (8.5-10.1); Creatinine Clr Calc Pharmacy 30.4 ml/min; Est GFR (African American) 37.9; Est GFR (Non-African American) 32.7; Potassium 3.3 mmol/L (3.5-5.1)
[2019-09-30] MEDS ORDERED: POTASSIUM CHLORIDE 20 MEQ TABCR PO STA (08:08)
--- NOTE | 2019-09-30 08:20 | Ultrasound Report ---
US venous doppler LE RT CLINICAL HISTORY: R calf pain COMPARISON STUDY: 09/02/2019 FINDINGS: Real-time and color flow Doppler imaging were performed. Flow was seen within the femoral, popliteal and calf veins with no intraluminal thrombus demonstrated. The saphenous vein is patent. IMPRESSION: No evidence of right lower extremity DVT. ACT 112: Negative or not required by law. Electronically signed by: Uriah Tyler M.D. 09/30/2019 8:19 AM
[2019-09-30] MEDS: POTASSIUM CHLORIDE 10 MEQ TABCR PO SCH (08:37)
[2019-09-30] MEDS: FAMOTIDINE 20 MG TAB PO SCH (08:38)
[2019-09-30] MEDS: SERTRALINE HCL 50 MG TABLET PO SCH (08:38)
[2019-09-30] MEDS: CLOPIDOGREL BISULFATE 75 MG TAB PO SCH (08:38)
[2019-09-30] MEDS: HydrALAZINE TAB 50 MG TAB PO SCH ×2 (08:38→13:13)
[2019-09-30] MEDS: AMLODIPINE BESYLATE 5 MG TAB PO SCH (08:39)
[2019-09-30] MEDS: METOPROLOL TARTRATE 100 MG TAB PO SCH ×2 (08:39→21:46)
[2019-09-30] MEDS: LOSARTAN POTASSIUM 50 MG TAB PO SCH (08:39)
[2019-09-30] MEDS: CYANOCOBALAMIN 500 MCG TABLET (VITAMIN B-12) PO SCH (08:40)
[2019-09-30] MEDS: LACTOBACILLUS ACIDOPHILUS (FLORANEX) TAB PO SCH ×3 (08:40→18:00)
[2019-09-30] MEDS ORDERED: POTASSIUM CHLORIDE 10 MEQ TABCR PO STA (09:26)
--- NOTE | 2019-09-30 09:35 | Cardiology Consultation ---
Date of Consultation September 30, 2019 Assessment & Plan (1) Pulmonary edema: Patient presented with hypoxia and volume overload secondary to iatrogenic administration of IV fluids and uncontrolled hypertension. EKG cardiac enzymes and echocardiogram do not reflect cardiac source of congestive heart failure. Complaints aggravated by hypoalbuminemia collecting recent surgeries and infections Blood pressure previously managed by nephrology would treat with increased dose of hydralazine Will likely require low-dose intermittent diuretic Hypoalbuminemia/malnutrition will need to be addressed Will sign off contact with any questions (2) Uncontrolled hypertension: (3) CKD (chronic kidney disease), stage IV: History of Present Illness Reason for Consultation: Hypertension, pulmonary edema Requesting Physician: Dr. Medrano Attending Physician: Rasta Medrano MD History of Present Illness Patient is a complex 74-year-old female who carries an underlying history of longstanding hypertension, stage IV chronic renal insufficiency, SLE diagnosed 2010 without active renal disease, Caroli's disease with recurrent stones. History includes prior stroke in 2016 with minimal residual. Recently in July 2019 underwent colectomy for colon carcinoma with complex course requiring transfusion and fluid resuscitation postop per report variable renal function. Patient was readmitted to this hospital with acute cholelithiasis/cholecystitis and underwent laparoscopic cholecystectomy. Patient has [facility] where per report was noted to have declining renal function in the setting of C. difficile colitis. Patient received antibiotic therapy as well as IV fluid hydration receiving 100 cc saline per hour x3 days. Yesterday patient became more dyspneic and hypoxic and was transferred to this facility for further evaluation. Chest x-ray revealed mild pulmonary edema in the setting of marked systolic hypertension. Patient has responded to IV diuretics. Records reflect recent discontinuation of diuretic, discontinuation of losartan due to renal insufficiency. Records reflect hydralazine dosing higher in the past This morning patient without complaint dyspnea has resolved as has hypoxia after diuresis. Renal function stable Patient denies chest pains tachypalpitations syncope near syncope. Denies any prior history of myocardial infarction angina syncope or near syncope. Notes no history rheumatic fever or significant valvular disease. No recent bleeding difficulties. Notes overall exercise capacity had been improving posthospitalization and anticipates discharge to home EKG on admission normal. Echocardiogram this morning demonstrates preserved LV systolic function, no wall motion abnormalities or significant valvular disease with moderate aortic sclerosis only Allergies Allergy/AdvReac Type Severity Reaction Status Date / Time Iodinated Contrast Media Allergy Severe HIVES/DIFFICULTY Verified 09/29/19 10:52 SWALLOWING Home Medications Home Medications Medication Instructions Recorded Confirmed Type aspirin 81 mg PO HS 08/19/18 09/29/19 History clopidogrel 75 mg PO QAM 08/19/18 09/29/19 History cyanocobalamin (vitamin B-12) 1,000 mcg PO QAM 08/19/18 09/29/19 History losartan 100 mg PO QAM 08/19/18 09/29/19 History amlodipine 10 mg PO DAILY 08/30/19 09/29/19 History hydralazine 50 mg PO TID 08/30/19 09/29/19 History metoprolol tartrate [Lopressor] 100 mg PO BID 08/30/19 09/29/19 History sertraline 50 mg PO DAILY 08/30/19 09/29/19 History acetaminophen [Mapap 650 mg PO Q4H PRN 30 Days #100 tab 09/16/19 09/29/19 Rx (acetaminophen)] Lactobacillus acidoph-L.bulgar 1 tab PO TIDM 09/29/19 09/29/19 History famotidine 20 mg PO DAILY 09/29/19 09/29/19 History potassium chloride 10 meq PO DAILY 09/29/19 09/29/19 History [id number]-Nx-muf-Zj-xua-carbohyd 1 ea PO BID 09/29/19 09/29/19 History [DripDrop] vancomycin 125 mg PO Q6 09/29/19 09/29/19 History Patient History Medical History Atrophy of left kidney C. difficile colitis (Acute) Cancer MULTIPLE SKIN CANCER REMOVALS (RADIATION FOR SKIN CANCER/UPPER LIP) Carolis disease (Chronic) CKD (chronic kidney disease), stage IV (Chronic) Endometriosis GERD (gastroesophageal reflux disease) (Chronic) History of CVA (cerebrovascular accident) (Chronic) 2016, no residual deficits Hyperlipidemia Hypertension (Chronic) Lupus (Chronic) Migraine Mood disorder Osteoarthritis Surgical History History of colon resection (Chronic) Aug 05 2019 at [facility]. Patient stated she had surgery early in the morning and didn't remember waking up until 1 AM. She is unaware of how long the procedure was and she was not intubated post-op. History of colonoscopy History of esophagogastroduodenoscopy (EGD) History of tonsillectomy History of tooth extraction History of total abdominal hysterectomy and bilateral salpingo-oophorectomy S/P laparoscopic cholecystectomy (09/09/19) Laparoscopic Cholecystectomy Dr. Madsen 09-09-19 Family History Father Family hx colonic polyps Sister Cholangiocarcinoma Other Alzheimer disease Heart disease Hypertension Social History Preferred Language: Luxembourgish Communication Ability: Effective Correctional Captain Required: No Beliefs That Will Affect Care: None marital status: Unknown Current Living Situation: Rehab Other Information That Helps Us Care for You: No Feels Safe at Home: Yes Safety Concerns: Feels Safe At This Time Smoking Status: Never smoker Do You Dip or Chew Tobacco: No ; Second Hand Exposure: No ; Tobacco Cessation Education Requested by Patient: No Hx Alcohol Use: No Hx Substance Use: No Review of Systems Review of Systems: All systems reviewed & are unremarkable except as noted in HPI & below Physical Exam Constitutional: WD/WN, vitals as above Eyes: PERRL, conjunctivae normal, anicteric sclerae ENMT: external ear and nose normal, oropharynx normal Neck: trachea midline, no thyromegaly Respiratory: normal respiratory effort, lungs clear to auscultation Cardiovascular: Rate/Rhythm: regular rate and regular rhythm Heart Sounds: normal S1, normal S2 and + murmur (Grade 2/6 systolic murmur no diastolic murmur); no gallop Palpation: normal PMI Vessels: normal carotid upstroke and radial pulses present; no JVD and no carotid bruit Extremities: no edema Gastrointestinal (Abdomen): Inspection/Auscultation: normal bowel sounds, + abdominal wall ecchymosis and + abdominal surgical incision (Without drainage ) Percussion/Palpation: abdomen soft; abdomen nontender Musculoskeletal: no cyanosis or clubbing, extremities motor strength 5/5 Skin: no rashes, warm and dry Neurologic: PERRL, EOMI, accommodation nl, no face palsy, no dysarthria Psychiatric: A+Ox3, euthymic affect Results & Data Vital Signs (Past 12 Hours) Vital Signs Temp Pulse Pulse Resp BP Pulse Ox 09/30/19 08:41 167/65 H 09/30/19 07:30 37.0 C 72 18 188/64 H 94 09/30/19 03:32 36.9 C 74 16 169/55 H 93 09/30/19 00:00 70 09/29/19 23:37 37.1 C 72 16 161/63 H 93 Laboratory Results Laboratory Results - last 24 hr 09/29/19 09/29/19 09/29/19 10:40 10:40 11:25 WBC 13.10 H RBC 3.39 L Hgb 10.0 L Hct 30.7 L MCV 90.6 MCH 29.5 MCHC 32.6 RDW Std Deviation 58.3 H RDW Coeff of Aurelia 17.5 H Plt Count 682 H MPV 8.8 Immature Gran % (Auto) 2.2 Neut % (Auto) 64.7 Lymph % (Auto) 21.7 [place]ham % (Auto) 10.1 Eos % (Auto) 1.0 Baso % (Auto) 0.3 Immature Gran # (Auto) 0.29 H Neut # (Auto) 8.48 H Lymph # (Auto) 2.84 [place]ham # (Auto) 1.32 H Eos # (Auto) 0.13 Baso # (Auto) 0.04 Sodium 141 Potassium TNP 4.1 Chloride 115 H Carbon Dioxide 21 Anion Gap 5.0 BUN 26 H Creatinine 1.58 H Est Cr Clr Drug Dosing 29.5 Est GFR ( Amer) 36.5 Est GFR (Non-Af Amer) 31.5 BUN/Creatinine Ratio 16.7 Glucose 104 H Calcium 8.3 L Total Bilirubin 0.6 AST 99 H ALT 65 Alkaline Phosphatase 176 H Troponin I 0.017 Total Protein 6.8 Albumin 2.1 L Globulin 4.7 H Albumin/Globulin Ratio 0.4 L 09/30/19 09/30/19 05:35 05:35 WBC 9.97 RBC 3.05 L Hgb 9.3 L Hct 27.3 L MCV 89.5 MCH 30.5 MCHC 34.1 RDW Std Deviation 56.5 H RDW Coeff of Aurelia 17.2 H Plt Count 531 H MPV 8.6 Immature Gran % (Auto) Neut % (Auto) Lymph % (Auto) [place]ham % (Auto) Eos % (Auto) Baso % (Auto) Immature Gran # (Auto) Neut # (Auto) Lymph # (Auto) [place] # (Auto) Eos # (Auto) Baso # (Auto) Sodium 140 Potassium 3.3 L D Chloride 110 H Carbon Dioxide 24 Anion Gap 6.0 BUN 27 H Creatinine 1.53 H Est Cr Clr Drug Dosing 30.4 Est GFR ( Amer) 37.9 Est GFR (Non-Af Amer) 32.7 BUN/Creatinine Ratio 17.8 Glucose 88 Calcium 8.2 L Total Bilirubin AST ALT Alkaline Phosphatase Troponin I Total Protein Albumin Globulin Albumin/Globulin Ratio
--- NOTE | 2019-09-30 10:21 | Cardiology Progress Note ---
Date of Service September 30, 2019 Results & Data Vital Signs (Past 12 Hours) Vital Signs Temp Pulse Pulse Resp BP Pulse Ox 09/30/19 08:41 167/65 H 09/30/19 07:30 37.0 C 72 18 188/64 H 94 09/30/19 03:32 36.9 C 74 16 169/55 H 93 09/30/19 00:00 70 09/29/19 23:37 37.1 C 72 16 161/63 H 93
--- NOTE | 2019-09-30 14:39 | Surgery Consultation ---
Date of Consultation September 30, 2019 Assessment & Plan (1) S/P laparoscopic cholecystectomy: -Patient is s/p lap starla with take-back for port site bleeding on 09/09/19 -Surgery consulted as patient is currently admitted to hospital and missed her outpatient follow-up yesterday -From a post surgical standpoint she is doing fairly well. Hbg stable at 9.3. Has been between 9.2-10.5 over the past month -She denies abdominal pain and surgical sites are healing -She does experience intermittent nausea and has had a bout or two of emesis since post op, but she reports that these symptoms are much improved since her admitted in August. She is picking and choosing foods that are appetizing to her. I offered Boost supplementation, but patient says they usually do not sit well with her. I explained to patient that since she is s/p two abdominal surgeries in the past two months and it may take a couple more weeks for her body to equilibrate -Overall continue regular diet as patient tolerates; we can see her in the office once she is discharged from the hospital -Appreciate medical management for other ongoing issues -Please call with any questions/concerns History of Present Illness Attending Physician: Rasta Medrano MD History of Present Illness This is a 74y F who is s/p a colon resection in at [place] and most recently s/p lap cholecystectomy with take-back for port site bleeding at [facility] on 09/09/19 who presented to our ED on 09/29/19 with complaints of shortness of breath. Surgery was consulted as patient's outpatient follow up was scheduled for yesterday, however pt missed her appointment as she was subsequently admitted with fluid overload. Patient reports that since discharge she has not endorsed any abdominal pain. She says she has had intermittent nausea and 1-2 episodes of vomiting since discharge, but her symptoms are much improved since when she was last admitted in August. Since discharge she has been at [facility] and working with PT/OT and speech therapy. She developed c.diff of which she has been on treatment for and diarrhea is becoming more formed per patient. Patient has been diuresed in the ED and since admission and reports feeling much better from a respiratory standpoint. Allergies Allergy/AdvReac Type Severity Reaction Status Date / Time Iodinated Contrast Media Allergy Severe HIVES/DIFFICULTY Verified 09/29/19 10:52 SWALLOWING Home Medications Home Medications Medication Instructions Recorded Confirmed Type aspirin 81 mg PO HS 08/19/18 09/29/19 History clopidogrel 75 mg PO QAM 08/19/18 09/29/19 History cyanocobalamin (vitamin B-12) 1,000 mcg PO QAM 08/19/18 09/29/19 History losartan 100 mg PO QAM 08/19/18 09/29/19 History amlodipine 10 mg PO DAILY 08/30/19 09/29/19 History hydralazine 50 mg PO TID 08/30/19 09/29/19 History metoprolol tartrate [Lopressor] 100 mg PO BID 08/30/19 09/29/19 History sertraline 50 mg PO DAILY 08/30/19 09/29/19 History acetaminophen [Mapap 650 mg PO Q4H PRN 30 Days #100 tab 09/16/19 09/29/19 Rx (acetaminophen)] Lactobacillus acidoph-L.bulgar 1 tab PO TIDM 09/29/19 09/29/19 History famotidine 20 mg PO DAILY 09/29/19 09/29/19 History potassium chloride 10 meq PO DAILY 09/29/19 09/29/19 History [id number]-Im-[id number]-Dq-zgc-carbohyd 1 ea PO BID 09/29/19 09/29/19 History [DripDrop] vancomycin 125 mg PO Q6 09/29/19 09/29/19 History Patient History Medical History Atrophy of left kidney C. difficile colitis (Acute) Cancer MULTIPLE SKIN CANCER REMOVALS (RADIATION FOR SKIN CANCER/UPPER LIP) Carolis disease (Chronic) CKD (chronic kidney disease), stage IV (Chronic) Endometriosis GERD (gastroesophageal reflux disease) (Chronic) History of CVA (cerebrovascular accident) (Chronic) 2016, no residual deficits Hyperlipidemia Hypertension (Chronic) Lupus (Chronic) Migraine Mood disorder Osteoarthritis Surgical History History of colon resection (Chronic) Aug 05 2019 at [facility]. Patient stated she had surgery early in the morning and didn't remember waking up until 1 AM. She is unaware of how long the procedure was and she was not intubated post-op. History of colonoscopy History of esophagogastroduodenoscopy (EGD) History of tonsillectomy History of tooth extraction History of total abdominal hysterectomy and bilateral salpingo-oophorectomy S/P laparoscopic cholecystectomy (09/09/19) Laparoscopic Cholecystectomy Dr. Madsen 09-09-19 Family History Father Family hx colonic polyps Sister Cholangiocarcinoma Other Alzheimer disease Heart disease Hypertension Social History Preferred Language: Ivorian Communication Ability: Effective Store Custodian Required: No Beliefs That Will Affect Care: None marital status: Unknown Current Living Situation: Rehab Other Information That Helps Us Care for You: No Feels Safe at Home: Yes Safety Concerns: Feels Safe At This Time Smoking Status: Never smoker Do You Dip or Chew Tobacco: No ; Second Hand Exposure: No ; Tobacco Cessation Education Requested by Patient: No Hx Alcohol Use: No Hx Substance Use: No Review of Systems Cardiovascular: no chest pain Gastrointestinal: + nausea (intermittent) and + vomiting (last bout of emesis she reports was last wk); no abdominal pain and no bloating Physical Exam Physical Exam: awake/alert Constitutional: well developed and well nourished; no acute distress Respiratory: normal respiratory effort saturating well on room air Gastrointestinal (Abdomen): Inspection/Auscultation: + abdominal surgical incision (healing well without sign of infection or drainage); abdomen not distended Percussion/Palpation: abdomen soft; abdomen nontender Results & Data Vital Signs (Past 12 Hours) Vital Signs Temp Pulse Resp BP Pulse Ox 09/30/19 11:21 36.9 C 70 17 161/59 H 96 09/30/19 08:41 167/65 H 09/30/19 07:30 37.0 C 72 18 188/64 H 94 09/30/19 03:32 36.9 C 74 16 169/55 H 93 PG Care Time/CCT Total # of Minutes Spent Total Time Spent with Patient: Total time spent is greater than 50% in coordination of care (as documented) at patient's floor/unit and/or counseling patient:
--- NOTE | 2019-09-30 16:09 | Hospitalist Progress Note ---
Date of Service September 30, 2019 Assessment & Plan (1) Acute respiratory failure with hypoxia: Patient is a 74 yr female with H/O colon cancer diagnosis s/p resection [facility] on Aug 05, recent laparoscopic cholecystectomy on 09/09/19 at [facility] complicated by acute hemorrhagic shock, C diff infection, lupus, CKD IV, Caroli's disease, mood disorder and history of CVA in 2017 without deficits who presents from [facility] to ED with hypoxia and shortness of breath x 2 days. Acute Respiratory failure with Hypoxia Pulmonary Edema Volume overload secondary to Iatrogenic administration of IV fluids (being treated for diarrhea due to C diff infection) Also home diuretic was held for few days prior to admission CXR:Cardiomegaly with evidence of congestive failure. Small pleural effusions with bibasilar consolidation. Check Procalcitonin Venous Doppler: No evidence of right lower extremity DVT. ECHO:EF: 60-65%, Mild LVH, Mild AR, Mild TR, Grade I diastolic dysfunction Hypoalbuminemia contributed Received IV lasix Currently saturating well on room air Appreciate Cardiology Input Resume home diuretic as able (2) C. difficile colitis: Diagnosed ~1 week ago at [facility] Diarrhea much improved Contact precautions, continue oral vancomycin to complete the course (3) Uncontrolled hypertension: H/O Poorly controlled BP. Continue amlodipine, losartan, metoprolol Hydralazine dose increased to 75 mg 3 times daily Monitor (4) CKD (chronic kidney disease), stage IV: (5) Atrophy of left kidney: Baseline Cr ~1.8-2. Cr at baseline Follows with outpatient nephrology Monitor renal function (6) Carolis disease: Follows with [facility] GI service S/P laparoscopic cholecystectomy on 09/09/19 Appreciate Surgery Input DVT Px: SQ heparin Code status: FULL Disposition: PT/OT prior to discharge Subjective Patient is seen and examined at bedside Had semi-formed bowel movement today Denies any abdominal pain, shortness of breath, chest pain Has nausea but no vomiting Discussed with cardiology today Offers no other complaints Family at bedside Review of Systems Review of Systems: All systems reviewed & are unremarkable except as noted in HPI & below Physical Exam Physical Exam: Physical Exam: Vitals signs as noted above General Appearance:Moderately built and nourished, no apparent distress Head: normocephalic, Atraumatic Eyes: normal inspection, EOMI, PERRL Neck: supple, Trachea midline Respiratory/Chest: Normal breath sounds, CTA, No accessory muscle use Cardiovascular: S1, S2, + systolic murmur Abdomen/GI:Soft, Non tender, Bowel sounds present Extremities/Musculoskelatal:normal inspection, Trace edema Neurologic/Psych:AAOX3, grossly no focal neurological deficits Skin: normal color, warm Results & Data Vital Signs (Past 12 Hours) Vital Signs Temp Pulse Resp BP Pulse Ox 09/30/19 15:30 36.8 C 70 16 154/55 H 94 09/30/19 11:21 36.9 C 70 17 161/59 H 96 09/30/19 08:41 167/65 H 09/30/19 07:30 37.0 C 72 18 188/64 H 94 Laboratory Results Short CBC 09/30/19 Range/Units 05:35 WBC 9.97 (4.8-10.8) K/uL Hgb 9.3 L (12.0-16.0) g/dL Hct 27.3 L (37-47) % Plt Count 531 H (130-400) K/uL BMP 09/30/19 05:35 Sodium 140 Potassium 3.3 L D Chloride 110 H Carbon Dioxide 24 BUN 27 H Creatinine 1.53 H Glucose 88 Calcium 8.2 L
[2019-09-30] MEDS: ASPIRIN 81 MG ECTAB PO SCH (21:46)
[2019-10-01] MEDS: VANCOMYCIN HCL 125 MG/2.5ML SOLN PO SCH ×2 (05:53→13:10)
[2019-10-01] MEDS: RASPBERRY SYRUP 5 ML UDP PO SCH ×2 (05:54→13:11)
[2019-10-01] MEDS: HydrALAZINE 10 MG TAB PO PRN ×2 (05:54→07:35)
[2019-10-01] MEDS: HEPARIN SOD 5,000 UNIT/0.5 ML VIAL SQ SCH (05:54)
[2019-10-01] MEDS: AMLODIPINE BESYLATE 5 MG TAB PO SCH (07:33)
[2019-10-01] MEDS: CLOPIDOGREL BISULFATE 75 MG TAB PO SCH (07:34)
[2019-10-01] MEDS: CYANOCOBALAMIN 500 MCG TABLET (VITAMIN B-12) PO SCH (07:34)
[2019-10-01] MEDS: LACTOBACILLUS ACIDOPHILUS (FLORANEX) TAB PO SCH ×2 (07:34→13:10)
[2019-10-01] MEDS: SERTRALINE HCL 50 MG TABLET PO SCH (07:35)
[2019-10-01] MEDS: LOSARTAN POTASSIUM 50 MG TAB PO SCH (07:36)
[2019-10-01] MEDS: POTASSIUM CHLORIDE 10 MEQ TABCR PO SCH (07:37)
[2019-10-01] MEDS: FAMOTIDINE 20 MG TAB PO SCH (07:38)
[2019-10-01] MEDS: METOPROLOL TARTRATE 100 MG TAB PO SCH (07:38)
[2019-10-01 07:46] LABS: Hematocrit (blood only) 27.4 % (37-47); Hemoglobin 9.1 g/dL (12.0-16.0); Mean Corpuscular Hemoglobin 29.7 pg (25-34); Mean Corpuscular Hgb Conc 33.2 g/dL (32-36); Mean Corpuscular Volume 89.5 fL (80-100); Mean Platelet Volume 8.7 fL (7.4-10.4); Platelet Count 487 K/uL (130-400); RDW Coefficient of Variation 17.3 % (11.5-14.5); Red Blood Count 3.06 M/uL (4.2-5.4); White Blood Count 8.55 K/uL (4.8-10.8)
[2019-10-01 08:10] LABS: BUN Creatinine Ratio 16.7 (10-20); Calcium 8.3 mg/dl (8.5-10.1); Est GFR (African American) 34.3; Est GFR (Non-African American) 29.6; Magnesium 1.6 mg/dl (1.8-2.4); Potassium 3.8 mmol/L (3.5-5.1)
[2019-10-01] MEDS: MAGNESIUM SULFATE / D5W 1 GM/100 ML BAG IV SCH ×2 (10:56→12:53)
--- NOTE | 2019-10-01 14:13 | Hospitalist Progress Note ---
Date of Service October 01, 2019 Assessment & Plan (1) Acute respiratory failure with hypoxia: Patient is a 74 yr female with H/O colon cancer diagnosis s/p resection [facility] on Aug 05, recent laparoscopic cholecystectomy on 09/09/19 at [facility] complicated by acute hemorrhagic shock, C diff infection, lupus, CKD IV, Caroli's disease, mood disorder and history of CVA in 2017 without deficits who presents from [facility] to ED with hypoxia and shortness of breath x 2 days. Acute Respiratory failure with Hypoxia Pulmonary Edema Volume overload secondary to Iatrogenic administration of IV fluids (being treated for diarrhea due to C diff infection) Also home diuretic was held for few days prior to admission CXR:Cardiomegaly with evidence of congestive failure. Small pleural effusions with bibasilar consolidation. Venous Doppler: No evidence of right lower extremity DVT. ECHO:EF: 60-65%, Mild LVH, Mild AR, Mild TR, Grade I diastolic dysfunction Hypoalbuminemia contributed Received IV lasix Currently saturating well on room air Appreciate Cardiology Input Resume home diuretic (2) C. difficile colitis: Diagnosed ~1 week ago at [facility] Diarrhea Resolved Contact precautions, continue oral vancomycin to complete the course (3) Uncontrolled hypertension: H/O Poorly controlled BP. Continue amlodipine, losartan, metoprolol Hydralazine dose increased to 75 mg 3 times daily Monitor (4) CKD (chronic kidney disease), stage IV: (5) Atrophy of left kidney: Baseline Cr ~1.8-2. Cr at baseline Follows with outpatient nephrology Monitor renal function (6) Carolis disease: Follows with [facility] GI service S/P laparoscopic cholecystectomy on 09/09/19 Appreciate Surgery Input DVT Px: SQ heparin Code status: FULL Disposition: Plan to discharge home with Home Health today Subjective Patient is seen and examined at bedside Doing well today Had normal BM No new complaints Denies any chest pain, SOB, abd pain, nausea, vomiting Review of Systems Review of Systems: All systems reviewed & are unremarkable except as noted in HPI & below Physical Exam Physical Exam: Physical Exam: Vitals signs as noted above General Appearance:Moderately built and nourished, no apparent distress Head: normocephalic, Atraumatic Eyes: normal inspection, EOMI, PERRL Neck: supple, Trachea midline Respiratory/Chest: Normal breath sounds, CTA, No accessory muscle use Cardiovascular: S1, S2, + systolic murmur Abdomen/GI:Soft, Non tender, Bowel sounds present Extremities/Musculoskelatal:normal inspection, Trace edema Neurologic/Psych:AAOX3, grossly no focal neurological deficits Skin: normal color, warm Results & Data Vital Signs (Past 12 Hours) Vital Signs Temp Pulse Pulse Resp BP BP Pulse Ox 10/01/19 11:32 36.7 C 64 17 158/56 H 96 10/01/19 08:00 61 10/01/19 07:21 37.0 C 71 18 181/57 H 172/52 H 94 10/01/19 02:52 36.9 C 72 16 179/62 H 95 Laboratory Results Short CBC 10/01/19 Range/Units 07:27 WBC 8.55 (4.8-10.8) K/uL Hgb 9.1 L (12.0-16.0) g/dL Hct 27.4 L (37-47) % Plt Count 487 H (130-400) K/uL BMP 10/01/19 07:27 Sodium 140 Potassium 3.8 D Chloride 112 H Carbon Dioxide 23 BUN 28 H Creatinine 1.66 H Glucose 97 Calcium 8.3 L
--- NOTE | 2019-10-01 14:24 | Discharge Summary ---
Date of Service October 01, 2019 Admission HPI Per Admitting Provider This is a 74yo F with a PMH of recent colon cancer diagnosis s/p resection [facility] on Aug 05, recent laparoscopic cholecystectomy on 09/09/19 at [facility] complicated by acute hemorrhagic shock, C diff infection, lupus, CKD IV, Caroli's disease, mood disorder and history of CVA in 2017 without deficits who presents from [facility] to ED with hypoxia and shortness of breath since yesterday morning. Patient woke up yesterday feeling unable to catch her breath was found to be hypoxic at 87%. Denies any fever, chills, cough, wheezing or chest pain. Was placed on supplemental oxygen with some improvement but continued to feel short of breath today. Had been given IV fluids daily at [facility] due to up-trending creatinine labs since arrival 2 weeks prior (peak Cr ~ 2.6 on 09/24 with baseline ~1-2). Endorses BLE edema and R calf pain. Has gained approximately 5 pounds in past week. No documented history of CHF or recent 2D echo. Had been started on chlorthalidone for BP control near the end of previous admission due to poorly controlled HTN. This medication was discontinued at [facility] (will continue trying to get further clarification via phone). Was given 40 mg of p.o. Lasix this morning before being sent to ED for further evaluation. Also noted to have a headache this morning with elevated BP with SBP ~190. Of note, also was found to have C diff infection 7 days ago and has been receiving oral vanco. Still endorsing ~8 daily episodes of diarrhea. Denies fever, chills, nausea, vomiting or abdominal pain. Admission Exam Per Admitting Provider Physical Exam Physical Exam: General Appearance: WD/WN, vitals as above, NAD, appears chronically ill, pleasant, conversing easily Head: normocephalic, atraumatic Eyes: normal inspection, PERRL, conjunctivae normal, anicteric sclerae ENT: external ear and nose normal, oropharynx normal Neck: trachea midline, no thyromegaly normal visual inspection Respiratory: normal respiratory effort, bibasilar rales, no wheeze or rhonchi. Normal insp/exp effort, no accessory muscle use Cardiovascular: regular rate, rhythm, systolic murmur, normal peripheral pulses, 2+ BLE edema Chest: normal inspection of chest Abdomen/GI: Healing incisions on abdomen with small dressings in place. Scattered ecchymosis. Normal bowel sounds, soft, nontender, no hepatosplenomegaly Extremities/Musculoskeletal: no cyanosis or clubbing, extremities motor strength 5/5 Neurologic: PERRL, EOMI, accommodation nl, no face palsy, no dysarthria, CN's II-XI intact bilaterally and moves all extremities Psychiatric: A+Ox3, euthymic affect Skin: no rashes, normal color, warm/dry Principal Diagnosis Acute respiratory failure with hypoxia Pulmonary edema C. difficile colitis Uncontrolled hypertension Discharge Data Allergies Allergy/AdvReac Type Severity Reaction Status Date / Time Iodinated Contrast Media Allergy Severe HIVES/DIFFICULTY Verified 09/29/19 10:52 SWALLOWING Consultations 09/29/19 12:26 ED Decision to Admit Stat 09/29/19 14:42 Consult Case Management - Discharge Planning Routine 09/30/19 08:00 Consult Cardiology Routine 09/30/19 13:56 Consult General Surgery Routine Procedures Performed CXR: Cardiomegaly with evidence of congestive failure. Small pleural effusions with bibasilar consolidation. Venous Doppler: No evidence of right lower extremity DVT. Ordered Studies 09/30/19 07:27 US venous doppler LE RT Urgent Hospital Course (1) Acute respiratory failure with hypoxia: Patient is a 74 yr female with H/O colon cancer diagnosis s/p resection [facility] on Aug 05, recent laparoscopic cholecystectomy on 09/09/19 at [facility] complicated by acute hemorrhagic shock, C diff infection, lupus, CKD IV, Caroli's disease, mood disorder and history of CVA in 2017 without deficits who presents from [facility] to ED with hypoxia and shortness of breath x 2 days. Acute Respiratory failure with Hypoxia Pulmonary Edema Volume overload secondary to Iatrogenic administration of IV fluids (being treated for diarrhea due to C diff infection) Also home diuretic was held for few days prior to admission CXR:Cardiomegaly with evidence of congestive failure. Small pleural effusions with bibasilar consolidation. Venous Doppler: No evidence of right lower extremity DVT. ECHO:EF: 60-65%, Mild LVH, Mild AR, Mild TR, Grade I diastolic dysfunction Hypoalbuminemia contributed Received IV lasix Currently saturating well on room air Appreciate Cardiology Input Resume home diuretic (2) C. difficile colitis: Diagnosed ~1 week ago at [facility] Diarrhea Resolved Contact precautions, continue oral vancomycin to complete the course (3) Uncontrolled hypertension: H/O Poorly controlled BP. Continue amlodipine, losartan, metoprolol Hydralazine dose increased to 75 mg 3 times daily Monitor (4) CKD (chronic kidney disease), stage IV: (5) Atrophy of left kidney: Baseline Cr ~1.8-2. Cr at baseline Follows with outpatient nephrology Monitor renal function (6) Carolis disease: Follows with [facility] GI service S/P laparoscopic cholecystectomy on 09/09/19 Appreciate Surgery Input DVT Px: SQ heparin Code status: FULL Disposition: Plan to discharge home with Home Health today Total Time Total Time Spent Total Time Spent (In Minutes): 37 minutes Total Time Includes: Examination of the Patient, Discharge Planning, Medication Reconciliation, Communication With Other Providers and Other Discharge Plan Discharge Items Patient Disposition: Home - Home Health Services Reason For Visit: HYPOXIA,ACUTE CHF EXACERBATION,HTN URGENCY Discharge Diagnosis: Acute respiratory failure with hypoxia Pulmonary edema C. difficile colitis Uncontrolled hypertension Activity: Resume your previous activity Exercise/Sports: Gradually increase as tolerated Non-emergency contact: Primary Care Provider Call non-emergency contact if: you have any medication questions, your symptoms worsen, your pain is not controlled, your pain is worsening, your pain is unusual for you, your pain is concerning for you and you have a fever Follow-up/Referrals: Ronny Madsen DO [Surgeon] - (Please call to schedule follow up in clinic within 1-2 weeks) Tai Beasley [Primary Care Provider] - Diet: Heart Healthy Addtl Attending Provider Instructions: Follow-up with your primary care physician Dr.George Beasley in 1 week as advised Complete the antibiotic (vancomycin) course as prescribed Seek immediate medical attention if your symptoms reoccur or worsen Pending Studies at Discharge: No Stand-Alone Forms: My [employer]Sent, Smoking Cessation Medications and DC Order Prescriptions: New hydralazine 50 mg tablet 75 mg PO TID 30 Days Qty: 135 RF: 0 Continued amlodipine 10 mg Tablet 10 mg PO DAILY RF: 0 metoprolol tartrate [Lopressor] 100 mg tablet 100 mg PO BID RF: 0 sertraline 50 mg Tablet 50 mg PO DAILY RF: 0 acetaminophen [Mapap (acetaminophen)] 325 mg Tablet 650 mg PO Q4H PRN (Reason: pain) 30 Days Qty: 100 RF: 0 cyanocobalamin (vitamin B-12) 1,000 mcg Tablet 1,000 mcg PO QAM RF: 0 clopidogrel 75 mg Tablet 75 mg PO QAM RF: 0 aspirin 81 mg Tablet,Delayed Release (Dr/Ec) 81 mg PO HS RF: 0 losartan 100 mg Tablet 100 mg PO QAM RF: 0 potassium chloride 10 mEq Tablet Extended Release 10 meq PO DAILY RF: 0 famotidine 20 mg Tablet 20 mg PO DAILY RF: 0 DripDrop 305-175-70 mg Powder In Packet 1 ea PO BID RF: 0 chlorthalidone 25 mg Tablet 25 mg PO DAILY Qty: 30 RF: 0 vancomycin 125 mg Capsule 125 mg PO Q6 Qty: 8 RF: 0 Lactobacillus acidoph-L.bulgar 1 million cell Tablet 1 tab PO TIDM 10 Days Qty: 30 RF: 0 Discontinued hydralazine 25 mg Tablet 50 mg PO TID RF: 0 Discharge Orders: Discharge Order (Routine); Ordered 10/01/19 Ordered By: Rasta Medrano Admission Data Admit Date/Time: 09/29/19 13:23 Attending Provider: Rasta Medrano Admit Provider: Lima Yu Primary Care Provider: Tai Beasley Other Providers: Lima Yu ; Jude Nance Matthew D. Other Interventions: Discharge Summary Assessment (RN) Last Done: 10/01/19 14:34 DC Date/Time DO NOT enter until pt leaves facility: 10/01/19 15:01
== END 2019-10-01 15:01 | disposition home health service (06) | DRG 189 ==
LOC: ED 09:36 → 2E 13:23 → SUATTDRO 13:23 → 2E 14:22

== ENCOUNTER 2019-11-04 21:23 | Inpatient (IN) ==
[2019-11-04] MEDS ORDERED: ICU PROTOCOL FOR HYPERGLYCEMIA PRN (23:33)
--- NOTE | 2019-11-05 00:01 | History & Physical Report ---
Date of Service November 05, 2019 Assessment & Plan (1) Acute hypoxemic respiratory failure: Combination of CHF and pneumonia. Continue vancomycin IV, cefepime IV and levofloxacin IV. DuoNebs 4 times daily and every 2 hours PRN. Will be given Lasix IV for CHF. Attempt to taper down from present BiPAP to nasal cannula as improved. Present on Admission?: Yes (2) NSTEMI (non-ST elevated myocardial infarction): The patient will be admitted to the ICU, and will follow serial cardiac enzymes, serial EKG's, cardiac rhythm monitoring and a 2-D echocardiogram with Dopplers. Continue aspirin, clopidogrel, clonidine, metoprolol tartrate, amlodipine and hydralazine with hold parameters. Cardiology to be consulted Present on Admission?: Yes (3) CHF exacerbation: We will give Lasix 40 mg IV initially and follow response Present on Admission?: Yes (4) Pneumonia: Treatment as above. Present on Admission?: Yes (5) Anemia of chronic disease: Patient did receive 1 unit PRBCs while at [place] and in transit. Admission hemoglobin here is improved to 9.3, and will follow serially. Present on Admission?: Yes (6) Acute kidney injury superimposed on CKD: Creatinine is 2.28 upon admission, with range 1.53-2.71. Follow serially Present on Admission?: Yes (7) C. difficile colitis: Recently finished dosing of Flagyl per the ED in [place]. Verify if vancomycin was used orally. Repeat C. difficile study. Present on Admission?: Yes History of Present Illness Chief Complaint: The patient initially presented to the emergency department at [facility] due to severe abdominal pain, nausea, dry heaving, and shortness of breath. Primary Care Provider: Tai Beasley The patient is a 74-year-old female with a past medical history including anemia chronic disease, CHF, C. difficile colitis, hemorrhagic shock, GERD, hypertension, lupus, history of CVA, CKD stage IV and Carolis disease. She presented to the emergency department at [facility] with the above symptoms. Work-up at that emergency department included chest x-ray suggestive of right upper lobe pneumonia, for which she received vancomycin IV, cefepime IV and levofloxacin IV. EKG showed suggested ST depressions/ischemia in leads II, III and aVF and leads V4 through V6, and troponin which was initially 0.062 had a mild increase to 0.086. She was also found to be hypoxic, with pulse ox 82% on room air, and was placed on Vapotherm with improvement to 92%. She was found to be mildly anemic with a hemoglobin of 7.7-8.3 range, and was being transfused 1 unit PRBCs Chest x-ray also showed bilateral pleural effusions. Do this due to this constellation of issues, the patient was transferred to [facility] to the ICU for further diagnosis and treatment. Allergies Allergy/AdvReac Type Severity Reaction Status Date / Time Iodinated Contrast Media Allergy Severe HIVES/DIFFICULTY Verified 10/06/19 13:33 SWALLOWING Home Medications Home Medications Medication Instructions Recorded Confirmed Type aspirin 81 mg PO HS 08/19/18 11/05/19 History clopidogrel 75 mg PO QAM 08/19/18 11/05/19 History cyanocobalamin (vitamin B-12) 1,000 mcg PO QAM 08/19/18 11/05/19 History amlodipine 10 mg PO DAILY 08/30/19 11/05/19 History sertraline 50 mg PO DAILY 08/30/19 11/05/19 History Lactobacillus acidoph-L.bulgar 1 tab PO TIDM 10 Days #30 tab 10/01/19 11/05/19 Rx ondansetron HCl 4 mg PO Q8 PRN 10/10/19 11/05/19 History ranitidine HCl 150 mg PO BID 10/10/19 11/05/19 History clonidine HCl 0.1 mg PO BID 30 Days #60 tab 10/13/19 11/05/19 Rx metoprolol tartrate 25 mg PO BID 30 Days #60 tab 10/13/19 11/05/19 Rx hydralazine 25 mg PO TID 11/05/19 11/05/19 History vancomycin PO Q6 11/05/19 History Past Med/Surg History Social History Preferred Language: Israeli Communication Ability: Effective Wedding Planning Internship Required: No Beliefs That Will Affect Care: None marital status: / Current Living Situation: Alone Other Information That Helps Us Care for You: No Feels Safe at Home: Yes Safety Concerns: Feels Safe At This Time Smoking Status: Never smoker Second Hand Exposure: No ; Hx Alcohol Use: No Hx Substance Use: No Review of Systems Review of Systems: Upon arrival to [facility] in the ICU, the patient denies chest pain, sore throat, fevers, chills, sweats, nausea, vomiting, diarrhea , constipation, abdominal pain, pelvic pain, blood in urine or stool, dysuria, urinary frequency or urgency, loss of consciousness, focal weakness, numbness or tingling in arms or legs, or night sweats. The review of systems is otherwise negative other than for that already noted above, and at least 10 systems have been reviewed. Physical Exam Physical Exam: The patient is awake, alert and oriented 3, breathing comfortably on BiPAP mask, lying in bed and in no acute distress. HEENT--PERRL, EOMI, mucous membranes and oropharynx dry. Neck--supple. No JVD. No bruits. Thyroid normal, trachea midline, no adenopathy. Heart--normal S1 and S2. No murmurs, rubs or gallops. Lungs--coarse breath sounds bilaterally. Abdomen--normal bowel sounds and soft. Nontender. Nondistended. Mildly tympanitic. Extremities--no cyanosis or clubbing. Trace bilateral pretibial pitting edema. Dermatologic--normal skin turgor, normal color, no abnormal lymph nodes, no rash. Neurologic--cranial nerves II through XII grossly intact. Rheumatologic--limited exam Psychiatric--normal affect. Results & Data Vital Signs (Past 12 Hours) Vital Signs Pulse Resp Pulse Ox 11/04/19 23:37 94 H 29 H 97 Laboratory Results Laboratory Results WBC 11.96 K/uL (4.8-10.8) H 11/05/19 02:39 RBC 3.17 M/uL (4.2-5.4) L 11/05/19 02:39 Hgb 9.3 g/dL (12.0-16.0) L 11/05/19 02:39 POC Hgb 9.2 g/dl (12.0-16.0) L 11/05/19 00:07 Hct 28.6 % (37-47) L 11/05/19 02:39 POC Hct 27 % (37-47) L 11/05/19 00:07 MCV 90.2 fL (80-100) 11/05/19 02:39 MCH 29.3 pg (25-34) 11/05/19 02:39 MCHC 32.5 g/dL (32-36) 11/05/19 02:39 RDW Std Deviation 61.1 fL (36.4-46.3) H 11/05/19 02:39 RDW Coeff of Aurelia 18.6 % (11.5-14.5) H 11/05/19 02:39 Plt Count 463 K/uL (130-400) H 11/05/19 02:39 MPV 9.2 fL (7.4-10.4) 11/05/19 02:39 Immature Gran % (Auto) 0.8 % 11/05/19 02:39 Neut % (Auto) 74.3 % 11/05/19 02:39 Lymph % (Auto) 11.3 % 11/05/19 02:39 Tate % (Auto) 13.3 % 11/05/19 02:39 Eos % (Auto) 0.0 % 11/05/19 02:39 Baso % (Auto) 0.3 % 11/05/19 02:39 Immature Gran # (Auto) 0.09 K/uL (0.00-0.02) H 11/05/19 02:39 Neut # (Auto) 8.90 K/uL (1.4-6.5) H 11/05/19 02:39 Lymph # (Auto) 1.35 K/uL (1.2-3.4) 11/05/19 02:39 Tate # (Auto) 1.59 K/uL (0.11-0.59) H 11/05/19 02:39 Eos # (Auto) 0.00 K/uL (0-0.5) 11/05/19 02:39 Baso # (Auto) 0.03 K/uL (0-0.2) 11/05/19 02:39 Toxic Vacuolation Occasional 11/05/19 02:39 Echinocytes 1+ 11/05/19 02:39 PT 11.9 Seconds (9.0-12.0) 11/05/19 00:41 INR 1.2 (0.9-1.1) H 11/05/19 00:41 APTT 52.7 Seconds (21.0-31.0) H* 11/05/19 04:49 PTT Ratio 1.9 11/05/19 04:49 Sample Site L Radial 11/05/19 00:07 POC pH 7.31 (7.35-7.45) L 11/05/19 00:07 POC pCO2 33 mmHg (35-46) L 11/05/19 00:07 POC pO2 84 mmHg (80-95) 11/05/19 00:07 POC HCO3 17 regino/L (19-24) L 11/05/19 00:07 POC Total CO2 17 mmol/L (24-31) L 11/05/19 00:07 POC Base Excess -10.0 regino/L (-9-1.8) L 11/05/19 00:07 ABG pH (Temp Correct) 7.314 (7.35-7.45) L 11/05/19 00:07 ABG pCO2 (Temp Corrct 32 mmHg (35-46) L 11/05/19 00:07 POC ABG pO2 at Pt Temp 84 11/05/19 00:07 Eddie Test Pass 11/05/19 00:07 O2 Delivery Device BIPAP 11/05/19 00:07 POC O2 Rate 12 11/05/19 00:07 POC FiO2 40 % 11/05/19 00:07 IPAP 12 11/05/19 00:07 POC Sodium 141 mmol/L (135-144) 11/05/19 00:07 Sodium 140 mmol/L (136-145) 11/05/19 00:25 POC Potassium 4.1 mmol/L (3.3-5.0) 11/05/19 00:07 Potassium 4.2 mmol/L (3.5-5.1) 11/05/19 00:25 Chloride 112 mmol/L (98-107) H 11/05/19 00:25 Carbon Dioxide 20 mmol/L (21-32) L 11/05/19 00:25 Anion Gap 8.0 (3-11) 11/05/19 00:25 BUN 40 mg/dl (7-18) H 11/05/19 00:25 Creatinine 2.28 mg/dl (0.6-1.2) H 11/05/19 00:25 Est Cr Clr Drug Dosing 20.4 ml/min 11/05/19 00:25 Est GFR ( Amer) 23.4 11/05/19 00:25 Est GFR (Non-Af Amer) 20.2 11/05/19 00:25 BUN/Creatinine Ratio 17.4 (10-20) 11/05/19 00:25 Glucose 114 mg/dl (70-99) H 11/05/19 00:25 POC Glucose 120 mg/dl (70-99) H 11/05/19 00:40 Lactate 1.2 mmol/L (0.4-2.0) 11/05/19 00:41 Calcium 7.9 mg/dl (8.5-10.1) L 11/05/19 00:25 Phosphorus 3.9 mg/dl (2.5-4.9) 11/05/19 00:25 Magnesium 2.0 mg/dl (1.8-2.4) 11/05/19 00:25 Total Bilirubin 0.6 mg/dl (0.2-1) 11/05/19 00:25 Direct Bilirubin 0.2 mg/dl (0-0.2) 11/05/19 00:25 AST 112 U/L (15-37) H 11/05/19 00:25 ALT 74 U/L (12-78) 11/05/19 00:25 Alkaline Phosphatase 236 U/L (45-117) H 11/05/19 00:25 Troponin I 1.070 ng/ml (0-0.045) H* 11/05/19 04:49 NT-Pro-B Natriuret Pep > 63479 pg/ml (0-1800) H 11/05/19 00:25 Total Protein 6.7 gm/dl (6.4-8.2) 11/05/19 00:25 Albumin 2.2 gm/dl (3.4-5.0) L 11/05/19 00:25 Amylase 36 U/L (25-115) 11/05/19 00:25 Lipase 92 U/L (73-393) 11/05/19 00:25 Procalcitonin 1.48 ng/ml (0-0.5) H 11/05/19 00:25 TSH 1.920 uIu/ml (0.300-4.500) 11/05/19 04:49 Random Cortisol 39.78 mcg/dl 11/05/19 00:25 Urine Color Dark Yellow 11/05/19 00:29 Urine Appearance Turbid (Clear) A 11/05/19 00:29 Urine pH 5.0 (4.5-7.5) 11/05/19 00:29 Ur Specific [place] 1.018 (1.000-1.030) 11/05/19 00:29 Urine Protein 1+ (Negative) H 11/05/19 00:29 Urine Glucose (UA) Negative (Negative) 11/05/19 00: Urine Ketones Trace (Negative) H 11/05/19 00:29 Urine Blood Negative (Negative) 11/05/19 00: Urine Nitrite Negative (Negative) 11/05/19 00: Urine Bilirubin Negative (Negative) 11/05/19 00: Urine Urobilinogen Negative (Negative) 11/05/19 00: Ur Leukocyte Esterase Negative (Negative) 11/05/19 00:29 Urine WBC (Auto) 1-5 /hpf (0-5) 11/05/19 00:29 Urine RBC (Auto) 0-4 /hpf (0-4) 11/05/19 00: U Hyaline Cast (Auto) 5-10 /lpf (0-5) H 11/05/19 00:29 U Epithel Cells (Auto) >30 /lpf (0-5) H 11/05/19 00:29 Urine Bacteria (Auto) 1+ (Negative) H 11/05/19 00:29 Ur Renal Epithelial Cell Not Reportable 11/05/19 00:29 Calcium Oxalate Crystal Present (None Prsent) A 11/05/19 00:29 Amorphous Sediment Present (None Prsent) A 11/05/19 00:29 Granular Casts 20-30 /lpf (0) H 11/05/19 00:29 Urine Yeast Not Reportable 11/05/19 00:29 Nasal Screen MRSA (PCR) Positive (Negative) A 11/04/19 23:42 Code Status & VTE Plan Code Status Patient would like CPR and shocking if needed, but does not want to be on ventilator VTE Prophylaxis Plan VTE Prophylaxis will be ordered: Yes Critical Care Time Critical Care Time: Yes Total Critical Care Time: 40 Total critical care time was 40 minutes PG Care Time/CCT Total # of Minutes Spent Total Time Spent with Patient: Total time spent is greater than 50% in coordination of care (as documented) at patient's floor/unit and/or counseling patient: Critical Care Time: Yes Total Critical Care Time: 40 Coding Level of Care Code 58020 Initial Inpt Care Lvl 3 Diagnoses Acute hypoxemic respiratory failure J96.01 NSTEMI (non-ST elevated myocardial infarction) I21.4 CHF exacerbation I50.9 Pneumonia J18.9 Anemia of chronic disease D63.8 Acute kidney injury superimposed on CKD N17.9; N18.9 C. difficile colitis A04.72 Additional Codes Critical Care Time - Critical Care Time: Yes ([id number]) Time Spent (min) 40
[2019-11-05] MEDS ORDERED: FUROSEMIDE 40 MG in SYRINGE 0 ML IV STA (00:02)
--- NOTE | 2019-11-05 00:06 | Critical Care Consultation ---
Date of Consultation November 05, 2019 Assessment & Plan (1) Acute hypoxemic respiratory failure: Reason Critically Ill: 74-year-old female presents with hypoxic respiratory failure and NSTEMI Neuro - History of CVAno residual, continue-aspirin Plavix therapy Mood disorderholding sertraline at this time for prolonged QT Cardiac - N STEMImildly elevated troponin of 0.[address] depression in anterior leads -Trending troponins for peak -EKG with ST depression in anterior leads, prolonged QT (holding sertraline) -Last echo September with EF of 60%, will repeat today considering PR -Continue heparin drip -Cardiology consulted, follow-up recs -Continue home ASA, Plavix, MTP -Continue to monitor on telemetry Diastolic CHFchest x-ray shows bilateral infiltrates, CHF versus pneumonia -B[place] [address] -Last echo with EF 60%, repeating today -Given 40 IV Lasix with good response -Monitor daily weights and strict I's and O's -Cardiology consulted, follow-up recs -Treatment of N STEMI as above Respiratory - Acute hypoxic respiratory failuremost likely multifocal pneumonia versus CHF exacerbation -Chest x-ray with bilateral infiltrates -see CHF and pneumonia management -AB.3 // -Currently on BiPAP weaned to 12/5 30% FiO2 -Continue broad-spectrum antibiotics -Continue diuresis -Continuous monitoring on pulse ox GI - N.p.o. for now GERD-famotidine RENAL/LYTES - CKDcreatinine 2.2 consistent with previous admissions -We will avoid nephrotoxins -Strict I's and O's Non-anion gap metabolic acidosislikely from hyperchloremic -No recent diarrhea per patient -HCO3 20, pH 7.31 -Chloride mildly elevated at 112, monitor Monitor electrolytes and replete as necessary - Foleystrict I's and O's ENDO - No history diabetes or thyroid disease ICU hyperglycemic protocol TSH with a.m. labs HEME - Anemia of chronic diseasepatient with reported hemoglobin of 7.7 at outside hospital, was transfused [address] depression and hypoxia -hemoglobin on admission 9.3 -Monitor routine CBCs and transfuse if indicated ID - Pneumoniachest x-ray and hypoxia consistent with multifocal pneumonia -Procalcitonin elevated, lactate negative, afebrile, no leukocytosis -Blood cultures pending -See respiratory management above -Continue broad-spectrum antibiotics vancomycin, cefepime, azithromycin UTIUA positive bacteria, urine culture pending -Previous history of Klebsiella pneumonia from September -Continue antibiotics LINES/IV ACCESS - PIV's DVT PROPHYLAXIS - SCDs, heparin drip I have personally spent 45 minutes of critical care time in the direct management of this patient. This is a life/limb threatening event. This includes time spent evaluating patient, direct bedside care, chart review, placing orders, interpretation of diagnostic studies, discussion with consultants, patient, and family members, as well as other required patient management activities. This time is exclusive of all separately billable procedures, and teaching time and separate from and in addition to any other critical care service time. Thank you for allowing us to participate in the care of this patient. Please refer to my attending physician's documentation for any further recommendations. (2) Metabolic acidosis: (3) Anemia of chronic disease: (4) Acute kidney injury superimposed on CKD: (5) Chronic diastolic CHF (congestive heart failure): (6) C. 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 Discussed with critical care STEPHANIE and on multidisciplinary rounds this morning. EMR extensively reviewed and all images independently reviewed 74-year-old female transferred from outside facility after being dismissed from our facility 10/13/2019. She was treated for C. difficile colitis. She presented in respiratory distress to an outside facility and received packed red cells. She developed progressive hypoxemic respiratory failure concerning for progressive pneumonia versus fluid overload. Her BNP was markedly elevated and she was profoundly hypertensive. She was transferred to our facility on BiPAP. She received diuretics and more aggressive blood pressure control. She remains on antibiotics. She has been weaned off of BiPAP down to 4 L facemask. She denies any chest pain or palpitations. There was concern about a possible troponin leak and she has been initiated on heparin infusion. Cardiology consultation and repeat echocardiogram are currently pending. Echo from 09/29/2019 showed an EF of 60 to 65% with concentric LVH and moderate aortic sclerosis without stenosis with mild aortic insufficiency and grade 1 diastolic dysfunction. Plan: 1. Acute hypoxemic respiratory failure, likely pneumonia: Secondary to pneumonia as well as fluid overload. Continue antibiotics in the form of vancomycin and cefepime. Will check procalcitonin and may use to guide duration of antimicrobial therapy. 2. Pulmonary vascular congestion. Unclear if this could be related to transfusion associated lung injury however the infant more focal on the right side as opposed to the left side. Agree with diuresis. Follow-up echocardiogram and cardiology consultation pending. 3. Mild troponin leak: Doubt obstructive coronary disease. Suspect more likely to be related to enzyme leak due to supply demand mismatch especially given the patient's profound hypertension. Defer heparin infusion to cardiology 4. Hypertension: Ideally would like a blood pressure less than 135/75 given her diastolic dysfunction. Have restarted her outpatient Norvasc clonidine hydralazine metoprolol. We will increase metoprolol to 50 twice daily and hydralazine to 50 4 times daily 5. History of C. difficile colitis: Abdomen exam benign currently and no significant pain. Continue to follow clinically. Patient in isolation for MRSA and history of C. difficile. 6. Nausea and vomiting: Currently resolved. Continue to follow clinically. As needed Zofran. The patient appears to be doing much better clinically and is eligible to transfer out of the floor under the care of the hospitalist to the telemetry unit. Will sign off when she leaves the ICU. Feel free to contact us if we can be of additional assistance. 65 minutes critical care time evaluating and managing patient with potentially catastrophic illness History of Present Illness Attending Physician: Sree Brian MD History of Present Illness Ms. Davies is a 74-year-old female past medical history diastolic CHF, CKD, recent C. difficile colitis (completed oral Vanco regimen yesterday), mood disorder, GERD, HTN, lupus, CVA, Carois disease who lives at a assisted living facility. She presented to [place] [facility] yesterday with shortness of breath and was found to be hypoxic with suspected pneumonia per CXR and anemic. Her troponin was mildly elevated and EKG showed ischemia she was started on heparin drip. She was started on antibiotics and transfused with 1 unit RBC and transferred to [facility] on BiPAP. On arrival to the ICU patient is alert and oriented and mildly tachypneic. Chest x-ray consistent with pulmonary congestion/volume overload and BNP greater than 35,000 and she was given Lasix with good response. CODE STATUS was discussed with patient and she claims that she does not want to be intubated u nder any circumstances however she would like chest compressions and defibrillation in the event she were to go on to cardiac arrest. Currently patient reports shortness of breath. She denies headache, dizziness, productive cough, sore throat, chest pain, palpitations, abdominal pain, nausea or vomiting, or diarrhea. Patient remained in ICU for further management at this time. Allergies Allergy/AdvReac Type Severity Reaction Status Date / Time Iodinated Contrast Media Allergy Severe HIVES/DIFFICULTY Verified 10/06/19 13:33 SWALLOWING Home Medications Home Medications Medication Instructions Recorded Confirmed Type aspirin 81 mg PO HS 08/19/18 11/05/19 History clopidogrel 75 mg PO QAM 08/19/18 11/05/19 History cyanocobalamin (vitamin B-12) 1,000 mcg PO QAM 08/19/18 11/05/19 History amlodipine 10 mg PO DAILY 08/30/19 11/05/19 History sertraline 50 mg PO DAILY 08/30/19 11/05/19 History Lactobacillus acidoph-L.bulgar 1 tab PO TIDM 10 Days #30 tab 10/01/19 11/05/19 Rx ondansetron HCl 4 mg PO Q8 PRN 10/10/19 11/05/19 History ranitidine HCl 150 mg PO BID 10/10/19 11/05/19 History clonidine HCl 0.1 mg PO BID 30 Days #60 tab 10/13/19 11/05/19 Rx metoprolol tartrate 25 mg PO BID 30 Days #60 tab 10/13/19 11/05/19 Rx hydralazine 25 mg PO TID 11/05/19 11/05/19 History vancomycin PO Q6 11/05/19 History Patient History Medical History Atrophy of left kidney C. difficile colitis (Acute) Cancer MULTIPLE SKIN CANCER REMOVALS (RADIATION FOR SKIN CANCER/UPPER LIP) Carolis disease (Chronic) Chronic diastolic CHF (congestive heart failure) CKD (chronic kidney disease), stage IV (Chronic) Endometriosis GERD (gastroesophageal reflux disease) (Chronic) History of CVA (cerebrovascular accident) (Chronic) 2016, no residual deficits Hyperlipidemia Hypertension (Chronic) Lupus (Chronic) Migraine Mood disorder Osteoarthritis Surgical History History of colon resection (Chronic) Aug 05 2019 at [facility]. Patient stated she had surgery early in the morning and didn't remember waking up until 1 AM. She is unaware of how long the procedure was and she was not intubated post-op. History of colonoscopy History of esophagogastroduodenoscopy (EGD) History of tonsillectomy History of tooth extraction History of total abdominal hysterectomy and bilateral salpingo-oophorectomy S/P laparoscopic cholecystectomy (09/09/19) Laparoscopic Cholecystectomy Dr. 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 Beliefs That Will Affect Care: None marital status: / Current Living Situation: Alone Other Information That Helps Us Care for You: No Feels Safe at Home: Yes Safety Concerns: Feels Safe At This Time Smoking Status: Never smoker Second Hand Exposure: No ; Hx Alcohol Use: No Hx Substance Use: No Review of Systems Review of Systems: All systems reviewed & are unremarkable except as noted in HPI & below Physical Exam Eyes: PERRL, conjunctivae normal, anicteric sclerae ENMT: external ear and nose normal, oropharynx normal Neck: trachea midline, no thyromegaly Respiratory: Tachypnea, symmetrical chest wall movement, no stridor, no wheezes, coarse crackles bilaterally auscultated in all lung shields Cardiovascular: RRR, no murmur, no edema Heart Sounds: normal S1 and normal S2 Extremities: + pedal edema Gastrointestinal (Abdomen): normal bowel sounds, soft, nontender, no hepatosplenomegaly Skin: no rashes, warm and dry Neurologic: PERRL, EOMI, accommodation nl, no face palsy, no dysarthria Psychiatric: A+Ox3, euthymic affect Results & Data ([facility]) Vital Signs (Past 12 Hours) Vital Signs Pulse Resp Pulse Ox 11/04/19 23:37 94 H 29 H 97 Coding Level of Care Code Critical Care 1st 30-74 mins Diagnoses Acute hypoxemic respiratory failure J96.01 Metabolic acidosis E87.2 Anemia of chronic disease D63.8 Acute kidney injury superimposed on CKD N17.9; N18.9 Chronic diastolic CHF (congestive heart failure) I50.32 C. difficile colitis A04.72 S/P laparoscopic cholecystectomy Z90.49 History of colon resection Z90.49 Mood disorder F39 History of CVA (cerebrovascular accident) Z86.73 Carolis disease Q44.5 GERD (gastroesophageal reflux disease) K21.9 Lupus L93.0 Hypertension I10 Hypertension type: essential hypertension Pneumonia J18.9 CHF exacerbation I50.9 NSTEMI (non-ST elevated myocardial infarction) I21.4 Time Spent (min) 65 (1) Hypertension Hypertension type: essential hypertension Qualified Code(s): I10 - Essential (primary) hypertension
[2019-11-05 00:24] LABS: iSTAT Allen Test Pass; iSTAT Art Bld Gas pCO2 Correct 32 mmHg (35-46); iSTAT Art Bld Gas pH Corrected 7.314 (7.35-7.45); iSTAT Arterial Blood Gas HCO3 17 meg/L (19-24); iSTAT Arterial Blood Gas pCO2 33 mmHg (35-46); iSTAT Arterial Blood Gas pH 7.31 (7.35-7.45); iSTAT Arterial Blood Gas pO2 84 mmHg (80-95); iSTAT Arterial Blood Gas pO2 C 84; iSTAT Carbon Dioxide 17 mmol/L (24-31); iSTAT FiO2 40 %; iSTAT Hematocrit 27 % (37-47); iSTAT Hemoglobin 9.2 g/dl (12.0-16.0); iSTAT Potassium 4.1 mmol/L (3.3-5.0); iSTAT Site L Radial; iSTAT Sodium 141 mmol/L (135-144)
[2019-11-05] MEDS ORDERED: VANCOMYCIN HCL 1,000 MG/270 ML BAG IV STA (00:28)
[2019-11-05] MEDS ORDERED: VANCOMYCIN CONSULT ACTIVE PRN ×2 (00:28)
[2019-11-05] MEDS ORDERED: CEFEPIME 2,000 MG in SYRINGE 0 ML IV SCH (00:30)
[2019-11-05] MEDS ORDERED: ALBUT/IPRATROP 3MG/0.5MG NEB 3 ML VIAL NEB PRN (00:34)
[2019-11-05] MEDS ORDERED: LABETALOL HCL IV 5 MG/ML 20ML IV STA ×2 (00:46→04:36)
[2019-11-05] MEDS ORDERED: AZITHROMYCIN 500 MG in DEXTROSE 5% 250 ML IV SCH (01:00)
[2019-11-05 01:02] LABS: Appearance Urine Turbid (Clear); Bilirubin Urine Negative (Negative); Blood Urine Negative (Negative); Color Urine Dark Yellow; Epithelial Cell Urine Auto >30 /lpf (0-5); Glucose Urine UA Negative (Negative); Ketones Urine Trace (Negative); Leukocyte Esterase Urine Negative (Negative); Nitrite Urine Negative (Negative); Protein Urine 1+ (Negative); RBC Urine Automated 0-4 /hpf (0-4); Specific Gravity Urine 1.018 (1.000-1.030); Urobilinogen Urine Negative (Negative)
[2019-11-05 01:12] LABS: Alanine Aminotransferase 74 U/L (12-78); Albumin Level 2.2 gm/dl (3.4-5.0); Aspartate Aminotransferase 112 U/L (15-37); BUN Creatinine Ratio 17.4 (10-20); Bilirubin Direct 0.2 mg/dl (0-0.2); Blood Urea Nitrogen 40 mg/dl (7-18); Calcium 7.9 mg/dl (8.5-10.1); Carbon Dioxide 20 mmol/L (21-32); Chloride 112 mmol/L (98-107); Creatinine Clr Calc Pharmacy 20.4 ml/min; Est GFR (African American) 23.4; Est GFR (Non-African American) 20.2; Glucose 114 mg/dl (70-99); Lipase 92 U/L (73-393); Potassium 4.2 mmol/L (3.5-5.1); Sodium 140 mmol/L (136-145)
[2019-11-05 01:23] LABS: Alkaline Phosphatase 236 U/L (45-117); Amylase 36 U/L (25-115); Bilirubin,Total 0.6 mg/dl (0.2-1); NT Pro B Type Natriuretic Pept > 35000 pg/ml (0-1800); Phosphorus 3.9 mg/dl (2.5-4.9); Total Protein 6.7 gm/dl (6.4-8.2); Troponin I 0.816 ng/ml (0-0.045)
[2019-11-05 01:24] LABS: INR 1.2 (0.9-1.1); Partial Thromboplastin Ratio > 5.1; Prothrombin Time 11.9 Seconds (9.0-12.0)
[2019-11-05 01:29] LABS: Amorphous Sediment Urine Present (None Prsent)
[2019-11-05] MEDS ORDERED: VANCOMYCIN HCL 1,250 MG in SODIUM CHLORIDE 0.9% 250 ML IV ONE (01:30)
[2019-11-05 01:32] LABS: Granular Casts Urine 20-30 /lpf (0)
[2019-11-05 01:33] LABS: Bacteria Urine Automated 1+ (Negative)
[2019-11-05 01:33] LABS: Partial Thromboplastin Time > 139.0 Seconds (21.0-31.0)
[2019-11-05] MEDS ORDERED: Heparin IV Standard *NO* Bolus IV STA (01:33)
[2019-11-05 01:35] LABS: Calcium Oxalate Crystals Urine Present (None Prsent)
[2019-11-05] MEDS ORDERED: HEPARIN SODIUM/DEXTROSE 25,000 UNITS/500 ML BAG IV SCH (01:45)
[2019-11-05] MEDS ORDERED: CEFEPIME CONSULT ACTIVE PRN (03:09)
[2019-11-05 03:14] LABS: Partial Thromboplastin Ratio > 5.1
[2019-11-05 03:18] LABS: Hematocrit (blood only) 28.6 % (37-47); Hemoglobin 9.3 g/dL (12.0-16.0); Mean Corpuscular Hemoglobin 29.3 pg (25-34); Mean Corpuscular Volume 90.2 fL (80-100); Mean Platelet Volume 9.2 fL (7.4-10.4); Platelet Count 463 K/uL (130-400); RDW Coefficient of Variation 18.6 % (11.5-14.5); RDW Standard Deviation 61.1 fL (36.4-46.3); Red Blood Count 3.17 M/uL (4.2-5.4); White Blood Count 11.96 K/uL (4.8-10.8)
[2019-11-05 03:20] LABS: Mean Corpuscular Hgb Conc 32.5 g/dL (32-36); Partial Thromboplastin Time > 139.0 Seconds (21.0-31.0)
[2019-11-05 03:49] LABS: Basophils # (auto) 0.03 K/uL (0-0.2); Basophils % (auto) 0.3 %; Echinocytes 1+; Immature Granulocytes # (auto) 0.09 K/uL (0.00-0.02); Immature Granulocytes % (auto) 0.8 %; Lymphocytes # (auto) 1.35 K/uL (1.2-3.4); Lymphocytes % (auto) 11.3 %; Monocytes # (auto) 1.59 K/uL (0.11-0.59); Monocytes % (auto) 13.3 %; Neutrophils % (auto) 74.3 %; Toxic Vacuolation Occasional
[2019-11-05 05:39] LABS: Partial Thromboplastin Ratio 1.9; Partial Thromboplastin Time 52.7 Seconds (21.0-31.0)
[2019-11-05 06:01] LABS: Thyroid Stimulating Hormone 1.92 uIu/ml (0.300-4.500); Troponin I 1.07 ng/ml (0-0.045)
--- NOTE | 2019-11-05 06:55 | XRay Report ---
XR chest 1V portable CLINICAL HISTORY: 74 years-old Female presenting with respiratory failure. TECHNIQUE: Portable upright AP view of the chest was obtained. COMPARISON: 10/10/2019. FINDINGS: Atherosclerosis of the aortic arch. Cardiac silhouette borderline enlarged. Interval development of m ultifocal patchy opacities primarily in the right lung affecting the upper and central regions as wel l as the central and basilar regions of the left lung to a lesser extent. Small right and trace left pleural effusions. No pneumothorax. Degenerative changes of the thoracic spine. Upper abdomen normal. IMPRESSION: 1. Multifocal infiltrates or severely affecting the right lung. This is favored to represent multifo rae pneumonia. Asymmetric pulmonary edema considered less likely. 2. Small right and trace left pleural effusions. ACT 112: Negative or not required by law. Electronically signed by: Alex Ibarra M.D. 11/05/2019 6:53 AM
--- NOTE | 2019-11-05 07:08 | XRay Report ---
XR chest 1V portable CLINICAL HISTORY: resp failure dyspnea COMPARISON STUDY: 11/05/2019 FINDINGS: Subtle improvement in aeration right hemithorax. Unchanging increased density medial aspect left base. Slight improvement in aeration left mid lung. Slight chronic blunting right lateral costophrenic angle. IMPRESSION: Slight improvement of the bilateral parenchymal infiltrates versus asymmetric pulmonary edema. ACT 112: Negative or not required by law. The above report was generated using voice recognition software. It may contain grammatical, syntax or spelling errors. Electronically signed by: Jean Carlos Stauffer M.D. 11/05/2019 7:07 AM
[2019-11-05] MEDS: CLOPIDOGREL BISULFATE 75 MG TAB PO SCH (08:34)
[2019-11-05] MEDS: cloNIDine HCL 0.1 MG TAB PO SCH ×2 (08:34→20:59)
[2019-11-05] MEDS: CYANOCOBALAMIN 500 MCG TABLET (VITAMIN B-12) PO SCH (08:35)
[2019-11-05] MEDS: LACTOBACILLUS ACIDOPHILUS (FLORANEX) TAB PO SCH ×3 (08:35→17:11)
[2019-11-05] MEDS: AMLODIPINE BESYLATE 5 MG TAB PO SCH (08:35)
[2019-11-05] MEDS ORDERED: ONDANSETRON INJ 2 MG/ML 2 ML VIAL ONE (08:44)
[2019-11-05] MEDS ORDERED: FAMOTIDINE 20 MG in SYRINGE 3 ML IV SCH (09:00)
[2019-11-05] MEDS ORDERED: METOPROLOL TARTRATE 25 MG TAB PO SCH (09:00)
[2019-11-05] MEDS ORDERED: HydrALAZINE HCL 20 MG/ML VIAL IV ONE (09:45)
--- NOTE | 2019-11-05 11:52 | Hospitalist Progress Note ---
Date of Service November 05, 2019 Assessment & Plan (1) CHF exacerbation: Acute on chronic diastolic CHF. EF in 09/2019 was 60-65%. - Continue Lasix IV - Monitor I&Os, daily weights - Cardiology following (2) Pneumonia: (3) Acute hypoxemic respiratory failure: Combination of CHF and pneumonia. Continue vancomycin IV, cefepime IV and levofloxacin IV. DuoNebs 4 times daily and every 2 hours PRN. Will be given Lasix IV for CHF. Attempt to taper down from present BiPAP to nasal cannula as improved. (4) NSTEMI (non-ST elevated myocardial infarction): The patient will be admitted to the ICU, and will follow serial cardiac enzymes, serial EKG's, cardiac rhythm monitoring and a 2-D echocardiogram with Dopplers. Continue aspirin, clopidogrel, clonidine, metoprolol tartrate, amlodipine and hydralazine with hold parameters. Cardiology to be consulted (5) Anemia of chronic disease: Patient did receive 1 unit PRBCs while at [place] and in transit. Admission hemoglobin here is improved to 9.3, and will follow serially. (6) Acute kidney injury superimposed on CKD: Creatinine is 2.28 upon admission, with range 1.53-2.71. Follow serially (7) C. difficile colitis: Recently finished dosing of Flagyl per the ED in [place]. Verify if vancomycin was used orally. Repeat C. difficile study. Admission and Anticipated Discharge Date Admission Date: November 04, 2019 Subjective Doing better at present. Less shortness of breath, overall in good spirits. Still has some nausea. Reports no fevers/chills, chest pain, or vomiting. Physical Exam Constitutional: WD/WN, vitals as above Eyes: EOM intact bilaterally; no conjunctival abnormality ENMT: external ear and nose normal, oropharynx normal Neck: trachea midline, no thyromegaly normal visual inspection Respiratory: normal respiratory effort, lungs clear to auscultation + labored breathing; no respiratory distress Cardiovascular: RRR, no murmur, no edema Extremities: + edema Gastrointestinal (Abdomen): Inspection/Auscultation: abdomen normal to inspection; abdomen not distended Musculoskeletal: no cyanosis or clubbing, extremities motor strength 5/5 Skin: no rashes, warm and dry Neurologic: moves all extremities and awake Psychiatric: Orientation: alert, oriented to person and cooperative Results & Data ([facility]) Vital Signs (Past 12 Hours) Vital Signs Pulse Resp BP Pulse Ox 11/05/19 11:30 83 91 11/05/19 11:27 85 171/95 H 90 11/05/19 11:21 80 155/56 H 91 11/05/19 11:00 85 91 11/05/19 10:30 89 92 11/05/19 10:27 91 H 199/86 H 87 L 11/05/19 10:00 87 93 11/05/19 09:30 89 91 11/05/19 09:26 86 174/103 H 95 11/05/19 09:00 87 93 11/05/19 08:30 85 94 11/05/19 08:27 80 181/88 H 96 11/05/19 08:00 82 96 11/05/19 07:30 79 96 11/05/19 07:26 83 195/85 H 96 11/05/19 07:00 82 97 11/05/19 06:45 82 95 11/05/19 06:26 81 174/79 H 96 11/05/19 05:26 80 28 H 172/85 H 95 11/05/19 05:25 81 28 H 170/86 H 95 11/05/19 04:26 78 19 178/76 H 96 11/05/19 03:50 75 18 95 11/05/19 03:26 77 20 154/78 H 95 11/05/19 02:26 78 20 152/66 H 94 11/05/19 01:26 79 28 H 136/62 94 11/05/19 01:00 94 H 33 H 145/71 H 97 11/05/19 00:59 82 28 H 145/71 H 94 11/05/19 00:54 92 H 27 H 202/135 H 96 11/05/19 00:43 85 27 H 182/87 H 96 PG Care Time/CCT Total # of Minutes Spent Total Time Spent with Patient: Total time spent is greater than 50% in coordination of care (as documented) at patient's floor/unit and/or counseling patient: Coding Diagnoses CHF exacerbation I50.9 Pneumonia J18.9 Acute hypoxemic respiratory failure J96.01 NSTEMI (non-ST elevated myocardial infarction) I21.4 Anemia of chronic disease D63.8 Acute kidney injury superimposed on CKD N17.9; N18.9 C. difficile colitis A04.72
--- NOTE | 2019-11-05 12:18 | Cardiology Consultation ---
Date of Consultation November 05, 2019 Assessment & Plan (1) Acute hypoxemic respiratory failure: (2) Pneumonia: (3) Chronic diastolic CHF (congestive heart failure): (4) NSTEMI (non-ST elevated myocardial infarction): (5) CKD (chronic kidney disease), stage IV: 74-year-old female admitted with hypoxemic respiratory failure which is multifactorial in origin however, appears to be primarily secondary to pneumonia. X-ray is consistent with multilobar pneumonia. Signs/symptoms of volume overload including lower extremity edema. Antibiotic, nebulizer treatments as per pulmonary medicine. Agree with gentle diuresis. Echocardiogram performed at bedside demonstrates preserved LV systolic function with normal wall motion. Her elevated troponin is likely type II, demand ischemia, in the setting of acute hypoxemic respiratory failure/community- acquired pneumonia. Denies any chest discomfort over the past few days. Agree with transfusion to maintain hemoglobin near 10.0gm/dL. Continue aspirin and Plavix as previously ordered. Blood pressure remains elevated. We will add topical nitrates at this time. Recommend additional dose of IV furosemide this afternoon with repeat basic metabolic panel in a.m. Continue to follow daily weight, GFR, electrolytes, and fluid balance. History of Present Illness Reason for Consultation: Congestive heart failure, elevated troponin Requesting Physician: Dr. Ortiz Attending Physician: Anuj Ortiz MD History of Present Illness 74-year-old female presented to the emergency department at [place] with nausea, vomiting, shortness of breath, and hypoxia. Due to mildly elevated troponin, patient transferred to [facility]. Patient reports cough and shortness of breath for 1 week. Last morning she reports subjective chills and fevers. Noted to be hypoxic initially with a room air oxygen saturation of 82%. Transiently treated with BiPAP. Oxygen saturations currently 90 to 93% on Ventimask. She is awake and alert. She denies chest discomfort over the past week. No orthopnea or paroxysmal nocturnal dyspnea. + worsening lower extremity edema. Hypertensive in ICU. Notes mild headache. No visual changes, slurred speech, or focal weakness. Chronically treated with dual antiplatelet therapy due to history of cerebrovascular accident. Denies personal history of coronary disease, peripheral vascular disease, or dysrhythmia. Hospitalized last month secondary to iatrogenic volume overload. Echocardiogram performed in September as well as today demonstrates preserved LV systolic function without significant valvular pathology. No regional wall motion abnormalities to suggest prior infarction or ongoing ischemia. Allergies Allergy/AdvReac Type Severity Reaction Status Date / Time Iodinated Contrast Media Allergy Severe HIVES/DIFFICULTY Verified 10/06/19 13:33 SWALLOWING Home Medications Home Medications Medication Instructions Recorded Confirmed Type aspirin 81 mg PO HS 08/19/18 11/05/19 History clopidogrel 75 mg PO QAM 08/19/18 11/05/19 History cyanocobalamin (vitamin B-12) 1,000 mcg PO QAM 08/19/18 11/05/19 History amlodipine 10 mg PO DAILY 08/30/19 11/05/19 History sertraline 50 mg PO DAILY 08/30/19 11/05/19 History Lactobacillus acidoph-L.bulgar 1 tab PO TIDM 10 Days #30 tab 10/01/19 11/05/19 Rx ondansetron HCl 4 mg PO Q8 PRN 10/10/19 11/05/19 History ranitidine HCl 150 mg PO BID 10/10/19 11/05/19 History clonidine HCl 0.1 mg PO BID 30 Days #60 tab 10/13/19 11/05/19 Rx metoprolol tartrate 25 mg PO BID 30 Days #60 tab 10/13/19 11/05/19 Rx hydralazine 25 mg PO TID 11/05/19 11/05/19 History vancomycin PO Q6 11/05/19 History Patient History Medical History Atrophy of left kidney C. difficile colitis (Acute) Cancer MULTIPLE SKIN CANCER REMOVALS (RADIATION FOR SKIN CANCER/UPPER LIP) Carolis disease (Chronic) Chronic diastolic CHF (congestive heart failure) CKD (chronic kidney disease), stage IV (Chronic) Endometriosis GERD (gastroesophageal reflux disease) (Chronic) History of CVA (cerebrovascular accident) (Chronic) 2016, no residual deficits Hyperlipidemia Hypertension (Chronic) Lupus (Chronic) Migraine Mood disorder Osteoarthritis Surgical History History of colon resection (Chronic) Aug 05 2019 at [facility]. Patient stated she had surgery early in the morning and didn't remember waking up until 1 AM. She is unaware of how long the procedure was and she was not intubated post-op. History of colonoscopy History of esophagogastroduodenoscopy (EGD) History of tonsillectomy History of tooth extraction History of total abdominal hysterectomy and bilateral salpingo-oophorectomy S/P laparoscopic cholecystectomy (09/09/19) Laparoscopic Cholecystectomy Dr. Madsen 09-09-19 Family History Father Family hx colonic polyps Sister Cholangiocarcinoma Other Alzheimer disease Heart disease Hypertension Social History Preferred Language: Malagasy Communication Ability: Effective Cushion Sewer Required: No Beliefs That Will Affect Care: None marital status: / Current Living Situation: Alone Other Information That Helps Us Care for You: No Feels Safe at Home: Yes Safety Concerns: Feels Safe At This Time Smoking Status: Never smoker Second Hand Exposure: No ; Hx Alcohol Use: No Hx Substance Use: No Review of Systems Review of Systems: All systems reviewed & are unremarkable except as noted in HPI & below +cough, + scant sputum production, subjective fever and chills Physical Exam Constitutional: well developed and + ill appearing; no acute distress Respiratory: + uses accessory muscles (Tachypneic) Auscultation: + rhonchi and + wheezes Cardiovascular: Rate/Rhythm: regular rate and regular rhythm Heart Sounds: normal S1, normal S2 and + murmur (1/6 low pitched mid peaking systolic ejection murmur heard best at the right second intercostal space) Vessels: no JVD and no carotid bruit Extremities: + edema (1-2+ bilateral lower extremity pedal and ankle edema) Gastrointestinal (Abdomen): Inspection/Auscultation: abdomen normal to inspection; abdomen not distended Percussion/Palpation: abdomen soft; abdomen nontender, no guarding and abdomen not rigid Musculoskeletal: no cyanosis or clubbing, extremities motor strength 5/5 Skin: no rashes, warm and dry Neurologic: moves all extremities; no focal motor deficits Psychiatric: A+Ox3, euthymic affect Results & Data ([facility]) Vital Signs (Past 12 Hours) Vital Signs Pulse Resp BP Pulse Ox 11/05/19 11:30 83 91 11/05/19 11:27 85 171/95 H 90 11/05/19 11:21 80 155/56 H 91 11/05/19 11:00 85 91 11/05/19 10:30 89 92 11/05/19 10:27 91 H 199/86 H 87 L 11/05/19 10:00 87 93 11/05/19 09:30 89 91 11/05/19 09:26 86 174/103 H 95 11/05/19 09:00 87 93 11/05/19 08:30 85 94 11/05/19 08:27 80 181/88 H 96 11/05/19 08:00 82 96 11/05/19 07:30 79 96 11/05/19 07:26 83 195/85 H 96 11/05/19 07:00 82 97 11/05/19 06:45 82 95 11/05/19 06:26 81 174/79 H 96 11/05/19 05:26 80 28 H 172/85 H 95 11/05/19 05:25 81 28 H 170/86 H 95 11/05/19 04:26 78 19 178/76 H 96 11/05/19 03:50 75 18 95 11/05/19 03:26 77 20 154/78 H 95 11/05/19 02:26 78 20 152/66 H 94 11/05/19 01:26 79 28 H 136/62 94 11/05/19 01:00 94 H 33 H 145/71 H 97 11/05/19 00:59 82 28 H 145/71 H 94 11/05/19 00:54 92 H 27 H 202/135 H 96 11/05/19 00:43 85 27 H 182/87 H 96 Diagnostic Findings ECG: Normal sinus rhythm, nonspecific ST abnormality, prolonged QT interval (1) Pneumonia Laterality: right Lung location: upper lobe of lung Pneumonia type: due to unspecified organism Qualified Code(s): J18.9 - Pneumonia, unspecified organism
[2019-11-05 12:20] LABS: Partial Thromboplastin Ratio 3.2
[2019-11-05 12:25] LABS: Partial Thromboplastin Time 85.5 Seconds (21.0-31.0)
[2019-11-05] MEDS ORDERED: ONDANSETRON INJ 2 MG/ML 2 ML VIAL IV PRN (12:33)
[2019-11-05] MEDS: NITROGLYCERIN 2% OINTMENT 30GM TUBE EXT SCH ×2 (12:44→17:21)
[2019-11-05] MEDS: FUROSEMIDE 40 MG in SYRINGE 0 ML IV SCH ×2 (13:08→21:00)
--- NOTE | 2019-11-05 13:23 | Hospitalist Progress Note ---
Date of Service November 05, 2019 Assessment & Plan (1) Acute hypoxemic respiratory failure: Acute hypoxemic respiratory failure: Possible combination of decompensated CHF with diastolic dysfunction(HFpEF)/community-acquired pneumonia: Patient was hypoxic in [facility] Was on BiPAP, Respiratory status improved with supportive care, nebulizer treatment antibiotic for pneumonia(on cefepime/vancomycin) Off BiPAP right now, on 5 L oxygen via facemask Patient complains of nonproductive cough, no shortness of breath at rest Appreciate input from pulmonary critical care Stable to transfer to telemetry/PCU Acute CHF with diastolic heart failure(HFpEF) Echo: On 09/29/2019: EF 60-65% with concentric LVF, moderate aortic sclerosis without stenosis with mild aortic insufficiency and grade 1 diastolic dysfunction Presented with evidence of volume overload pulmonary vascular congestion/hypoxemia Patient is treated with IV Lasix 40 mg twice daily, with adequate diuresis/improvement of respiratory status Appreciate input from cardiology, Continue diuresis, ordered for follow-up echocardiogram: Per cardiology bedside echo: Showed preserved LV systolic function with normal wall motion Troponin elevation: Doubt due to acute coronary event/coronary thrombus Possible elevated troponin secondary to type II non-ST elevated [place]/cardiac ischemia secondary to decompensated CHF, hypoxemia, hypertensive urgency Bedside echo: Showed preserved LV systolic function with normal wall motion, no evidence of ACS Cardiology input appreciated We will DC IV heparin Patient is continued with outpatient cardiac meds aspirin Plavix beta-danielle Hypertensive urgency: Possible in setting of hypoxemia, respiratory distress Patient is continue with Norvasc/clonidine/hydralazine dose increased to 50 mg 4 times daily/metoprolol dose increased to 50 mg twice daily Added Nitropaste by cardiology Continue IV Lasix 40 mg twice daily for diuresis/additional dose of IV Lasix ordered for this afternoon: With repeat BMP in a.m. CKD stage IV: Monitor BMP closely while getting aggressive IV diuresis Anemia of chronic disease: Transfusion recommended as needed to keep hemoglobin near 10 History of C. difficile colitis: No complaint of abdominal pain, no diarrhea Patient is on contact isolation for history of MRSA and C. difficile colitis Added probiotic while getting broad-spectrum antibiotic for pneumonia CODE STATUS: DNI/DO NOT INTUBATE DVT prophylaxis: Disposition: Monitor in PCU/telemetry Admission and Anticipated Discharge Date Admission Date: November 04, 2019 Subjective Patient seen in ICU room 101 On 5 L oxygen via facemask, complains of being very weak and tired, has continued cough, Denies of any chest pain, no chest heaviness, no shortness of breath Has been afebrile,(per patient last time she had a fever of 101 F on Sunday) Denies of any generalized aches or pains No complaint of nausea vomiting or abdominal pain, no diarrhea Review of Systems Review of Systems: All systems reviewed & are unremarkable except as noted in HPI & below Constitutional: + weakness; no fever and no chills Respiratory: + cough Cardiovascular: + edema; no chest pain, no dyspnea, no dyspnea at rest, no dyspnea on exertion, no orthopnea and no lightheadedness Gastrointestinal: no abdominal pain, no nausea, no vomiting and no diarrhea/loose stools Physical Exam Constitutional: WD/WN, vitals as above + ill appearing Eyes: PERRL, conjunctivae normal, anicteric sclerae ENMT: external ear and nose normal, oropharynx normal Neck: trachea midline, no thyromegaly Respiratory: normal respiratory effort; no respiratory distress and no labored breathing Auscultation: + rales Cardiovascular: Rate/Rhythm: regular rate and regular rhythm Vessels: no JVD Extremities: + pedal edema and + edema (+12 bilateral pitting edema) Gastrointestinal (Abdomen): Inspection/Auscultation: normal bowel sounds Percussion/Palpation: abdomen soft; abdomen nontender Musculoskeletal: no cyanosis or clubbing, extremities motor strength 5/5 Skin: no rashes, warm and dry Neurologic: PERRL, EOMI, accommodation nl, no face palsy, no dysarthria Psychiatric: A+Ox3, euthymic affect Results & Data ([facility]) Vital Signs (Past 12 Hours) Vital Signs Pulse Resp BP Pulse Ox 11/05/19 11:30 83 91 11/05/19 11:27 85 171/95 H 90 11/05/19 11:21 80 155/56 H 91 11/05/19 11:00 85 91 11/05/19 10:30 89 92 11/05/19 10:27 91 H 199/86 H 87 L 11/05/19 10:00 87 93 11/05/19 09:30 89 91 11/05/19 09:26 86 174/103 H 95 11/05/19 09:00 87 93 11/05/19 08:30 85 94 11/05/19 08:27 80 181/88 H 96 11/05/19 08:00 82 96 11/05/19 07:30 79 96 11/05/19 07:26 83 195/85 H 96 11/05/19 07:00 82 97 11/05/19 06:45 82 95 11/05/19 06:26 81 174/79 H 96 11/05/19 05:26 80 28 H 172/85 H 95 11/05/19 05:25 81 28 H 170/86 H 95 11/05/19 04:26 78 19 178/76 H 96 11/05/19 03:50 75 18 95 11/05/19 03:26 77 20 154/78 H 95 11/05/19 02:26 78 20 152/66 H 94 11/05/19 01:26 79 28 H 136/62 94
[2019-11-05] MEDS: HydrALAZINE TAB 50 MG TAB PO SCH ×3 (14:13→20:58)
--- NOTE | 2019-11-05 15:13 | Pharmacy Report ---
Pharmacy Abx Dose Short Note - Date of Service November 05, 2019 - Assessment & Plan Assessment * 74 year old F receiving for treatment of VANCOMYCIN + CEFEPIME for treatment of respiratory failure secondary to pneumonia / ADHF (Pharmacy has been consulted to dose VANCOMYCIN) * + leukocytosis, + tachypnea, afebrile, non-tachycardic, MAPs > 65 * CXR read as: bilateral parenchymal infiltrates versus asymmetric pulmonary edema * Procal 1.48 * + MRSA nares * renal fxn appears to be near baseline Plan Vancomycin * 1250mg x 1 (~18.5mg/kg) given overnight * Given this may not have been an adequate loading dose will check random level ~ 12 hrs after this dose administered * Goal trough level for pulm infxn : 15 to 20 mcg/mL * Will redose vancomycin when level is or is anticipated to be within the goal range * Given estimated half-life of 24+ hrs, would anticipate dosing based upon random levels drawn each AM Pharmacy will continue to follow and will adjust dose/frequency as necessary. Thank you.
[2019-11-05] MEDS ORDERED: PERFLUTREN LIPID MICROSPHERE (DEFINITY) IV ONE (15:26)
[2019-11-05] MEDS: LABETALOL HCL IV 5 MG/ML 20ML IV PRN (17:28)
[2019-11-05] MEDS: ASPIRIN 81 MG ECTAB PO SCH (20:58)
[2019-11-05] MEDS: METOPROLOL TARTRATE 50 MG TAB PO SCH (20:58)
[2019-11-05] MEDS: HEPARIN SOD 5,000 UNIT/0.5 ML VIAL SQ SCH (21:09)
[2019-11-05] MEDS: CEFEPIME 2,000 MG in SYRINGE 7.5 ML IV SCH (23:53)
[2019-11-06] MEDS ORDERED: CEFEPIME 2,000 MG in SYRINGE 0 ML IV SCH
[2019-11-06] MEDS: NITROGLYCERIN 2% OINTMENT 30GM TUBE EXT SCH ×4 (00:15→18:30)
[2019-11-06] MEDS: LABETALOL HCL IV 5 MG/ML 20ML IV PRN (04:11)
[2019-11-06 05:41] LABS: Hematocrit (blood only) 26.6 % (37-47); Hemoglobin 8.8 g/dL (12.0-16.0); Mean Corpuscular Hemoglobin 28.9 pg (25-34); Mean Corpuscular Hgb Conc 33.1 g/dL (32-36); Mean Corpuscular Volume 87.5 fL (80-100); Mean Platelet Volume 8.9 fL (7.4-10.4); Platelet Count 400 K/uL (130-400); RDW Coefficient of Variation 18.9 % (11.5-14.5); RDW Standard Deviation 59.9 fL (36.4-46.3); Red Blood Count 3.04 M/uL (4.2-5.4); White Blood Count 12.62 K/uL (4.8-10.8)
[2019-11-06] MEDS: HEPARIN SOD 5,000 UNIT/0.5 ML VIAL SQ SCH ×3 (05:47→20:35)
--- NOTE | 2019-11-06 05:58 | Electrocardiogram Report ---
Test Reason : Blood Pressure : / mmHG Vent. Rate : 087 BPM Atrial Rate : 087 BPM P-R Int : 142 ms QRS Dur : 086 ms QT Int : 438 ms P-R-T Axes : 050 038 049 degrees QTc Int : 527 ms Normal sinus rhythm Nonspecific ST abnormality Prolonged QT Abnormal ECG When compared with ECG of 10-OCT-2019 17:06, ST more depressed Anterior leads and inferior leads Confirmed by Dorian Núñez ([id number]) on 11/06/2019 5:58:21 AM Referred By: Sree Brian Confirmed By:Dorian Núñez
--- NOTE | 2019-11-06 06:05 | Electrocardiogram Report ---
Test Reason : Blood Pressure : / mmHG Vent. Rate : 080 BPM Atrial Rate : 080 BPM P-R Int : 140 ms QRS Dur : 086 ms QT Int : 460 ms P-R-T Axes : 034 030 044 degrees QTc Int : 530 ms Normal sinus rhythm Nonspecific ST abnormality Prolonged QT Abnormal ECG When compared with ECG of 05-NOV-2019 00:23, No significant change was found Confirmed by Dorian Núñez ([id number]) on 11/06/2019 6:05:03 AM Referred By: Sree Brian Confirmed By:Dorian Núñez
[2019-11-06 06:21] LABS: BUN Creatinine Ratio 18.4 (10-20); Calcium 7.9 mg/dl (8.5-10.1); Creatinine Clr Calc Pharmacy 19.8 ml/min; Est GFR (African American) 22.6; Est GFR (Non-African American) 19.5; Potassium 2.8 mmol/L (3.5-5.1)
[2019-11-06] MEDS: HydrALAZINE TAB 50 MG TAB PO SCH ×4 (08:00→20:35)
[2019-11-06] MEDS: AMLODIPINE BESYLATE 5 MG TAB PO SCH (08:00)
[2019-11-06] MEDS: METOPROLOL TARTRATE 50 MG TAB PO SCH ×2 (08:00→20:35)
[2019-11-06] MEDS: cloNIDine HCL 0.1 MG TAB PO SCH ×2 (08:01→21:53)
[2019-11-06] MEDS: FUROSEMIDE 40 MG in SYRINGE 0 ML IV SCH ×2 (08:01→20:36)
[2019-11-06] MEDS ORDERED: SODIUM CHLORIDE 0.9% 250 ML IV PRN (08:58)
[2019-11-06] MEDS ORDERED: POTASSIUM CHLORIDE 20 MEQ TABCR PO ONE (09:15)
[2019-11-06] MEDS: LACTOBACILLUS ACIDOPHILUS (FLORANEX) TAB PO SCH ×3 (09:18→18:09)
[2019-11-06] MEDS: CLOPIDOGREL BISULFATE 75 MG TAB PO SCH (09:19)
[2019-11-06] MEDS: CYANOCOBALAMIN 500 MCG TABLET (VITAMIN B-12) PO SCH (09:20)
[2019-11-06] MEDS: FAMOTIDINE 20 MG TAB PO SCH (09:20)
[2019-11-06] MEDS ORDERED: CEFTAROLINE PHARMACY CONSULT IN PROGRESS PRN (11:29)
[2019-11-06] MEDS ORDERED: FUROSEMIDE 40 MG in SYRINGE 0 ML IV SCH (12:00)
--- NOTE | 2019-11-06 16:11 | Cardiology Progress Note ---
Date of Service November 06, 2019 Assessment & Plan (1) Acute hypoxemic respiratory failure: (2) Pneumonia: (3) Chronic diastolic CHF (congestive heart failure): (4) NSTEMI (non-ST elevated myocardial infarction): (5) CKD (chronic kidney disease), stage IV: 74-year-old female admitted with hypoxemic respiratory failure which is multifactorial in origin however, appears to be primarily secondary to pneumonia. Volume status improved. Renal function stable. Continue IV Lasix. Follow daily weight, GFR, electrolytes, and fluid balance. Elevated troponin is likely type II, demand ischemia, in the setting of acute hypoxemic respiratory failure/community-acquired pneumonia. IV heparin discontinued. Treatment of community-acquired pneumonia as per internal medicine. Subjective Patient seen and examined the bedside. Denies chest pain or palpitations. No dysrhythmia on telemetry. Reports cough with scant sputum production. IV heparin discontinued. Tolerating diet and medications. Blood pressure improved. Review of Systems Review of Systems: All systems reviewed & are unremarkable except as noted in HPI & below Physical Exam Constitutional: well developed and + ill appearing; no acute distress Respiratory: + uses accessory muscles (Tachypneic) Auscultation: + rhonchi and + wheezes Cardiovascular: Rate/Rhythm: regular rate and regular rhythm Heart Sounds: normal S1, normal S2 and + murmur (1/6 low pitched mid peaking systolic ejection murmur heard best at the right second intercostal space) Vessels: no JVD and no carotid bruit Extremities: + edema (1+ bilateral lower extremity pedal and ankle edema) Gastrointestinal (Abdomen): Inspection/Auscultation: abdomen normal to inspection; abdomen not distended Percussion/Palpation: abdomen soft; abdomen nontender, no guarding and abdomen not rigid Musculoskeletal: no cyanosis or clubbing, extremities motor strength 5/5 Skin: no rashes, warm and dry Neurologic: moves all extremities; no focal motor deficits Psychiatric: A+Ox3, euthymic affect Results & Data Vital Signs (Past 12 Hours) Vital Signs Temp Pulse Pulse Resp BP BP BP 11/06/19 16:03 69 11/06/19 15:15 36.9 C 78 18 145/66 H 11/06/19 15:01 36.6 C 69 19 145/66 H 11/06/19 14:41 36.9 C 75 18 148/68 H 11/06/19 13:41 36.8 C 74 18 165/66 H 11/06/19 12:41 36.8 C 69 18 146/64 H 11/06/19 12:11 36.9 C 71 18 139/64 11/06/19 11:56 36.9 C 70 18 156/66 H 11/06/19 11:40 36.9 C 71 18 125/65 11/06/19 11:03 36.8 C 70 19 148/75 H 11/06/19 08:00 78 11/06/19 07:29 36.7 C 78 18 165/70 H 176/77 H 11/06/19 05:48 165/67 H Pulse Ox 11/06/19 16:03 11/06/19 15:15 96 11/06/19 15:01 97 11/06/19 14:41 96 11/06/19 13:41 96 11/06/19 12:41 97 11/06/19 12:11 98 11/06/19 11:56 97 11/06/19 11:40 98 11/06/19 11:03 97 11/06/19 08:00 11/06/19 07:29 93 11/06/19 05:48 (1) Pneumonia Pneumonia type: due to unspecified organism Laterality: right Lung location: upper lobe of lung Qualified Code(s): J18.9 - Pneumonia, unspecified organism
--- NOTE | 2019-11-06 16:33 | Hospitalist Progress Note ---
Date of Service November 06, 2019 Assessment & Plan (1) Acute hypoxemic respiratory failure: Acute hypoxemic respiratory failure: Respiratory status improving gradually Possible combination of decompensated CHF with diastolic dysfunction(HFpEF)/community-acquired pneumonia: Patient was hypoxic in [facility] Patient required BiPAP Respiratory status improved with supportive care, nebulizer treatment antibiotic for pneumonia(on cefepime/vancomycin) Anemia: Possibly secondary to anemia of chronic disease/advanced CKD: Anemia of chronic disease: Transfusion recommended as needed to keep hemoglobin near 10 Hemoglobin drop noted 9.38.8 No evidence of GI bleed 1 unit of PRBC transfusion ordered Lasix 40 mg will be given after PRBC to prevent volume overload Acute CHF with diastolic heart failure(HFpEF) Echo: On 09/29/2019: EF 60-65% with concentric LVF, moderate aortic sclerosis without stenosis with mild aortic insufficiency and grade 1 diastolic dysfunction Presented with evidence of volume overload pulmonary vascular congestion/hypoxemia Continue IV diuresis Appreciate input from cardiology, echocardiogram: Showed preserved LV systolic function with normal wall motion Troponin elevation: Doubt due to acute coronary event/coronary thrombus Possible elevated troponin secondary to type II non-ST elevated [place]/cardiac ischemia secondary to decompensated CHF, hypoxemia, hypertensive urgency Bedside echo: Showed preserved LV systolic function with normal wall motion, no evidence of ACS Cardiology input appreciated Patient is continued with outpatient cardiac meds aspirin Plavix beta-danielle Hypertensive urgency: BP improved after adjustment of medication Possible in setting of hypoxemia, respiratory distress Patient is continue with Norvasc/clonidine/hydralazine dose increased to 50 mg 4 times daily/metoprolol dose increased to 50 mg twice daily CKD stage IV: Monitor BMP closely while getting aggressive IV diuresis History of C. difficile colitis: No complaint of abdominal pain, no diarrhea Patient is on contact isolation for history of MRSA and C. difficile colitis Added probiotic while getting broad-spectrum antibiotic for pneumonia CODE STATUS: DNI/DO NOT INTUBATE DVT prophylaxis: Disposition: Monitor in PCU/telemetry Admission and Anticipated Discharge Date Admission Date: November 04, 2019 Subjective Shortness of breath has improved, still requiring supplemental oxygen Had uneventful night Lab work reviewed, a.m. hemoglobin dropped to 8.8 Patient had bowel movement 2 days ago, no evidence of dark stool or blood in stool Tolerating diet well no nausea vomiting or abdominal pain Review of Systems Constitutional: + weakness; no fever and no chills Respiratory: + cough Cardiovascular: + edema; no chest pain, no dyspnea, no dyspnea at rest, no dyspnea on exertion, no orthopnea and no lightheadedness Physical Exam Constitutional: WD/WN, vitals as above + ill appearing Eyes: PERRL, conjunctivae normal, anicteric sclerae ENMT: external ear and nose normal, oropharynx normal Neck: trachea midline, no thyromegaly Respiratory: normal respiratory effort; no respiratory distress and no labored breathing Auscultation: + rales Cardiovascular: Rate/Rhythm: regular rate and regular rhythm Vessels: no JVD Extremities: + pedal edema and + edema (+12 bilateral pitting edema) Gastrointestinal (Abdomen): Inspection/Auscultation: normal bowel sounds Percussion/Palpation: abdomen soft; abdomen nontender Musculoskeletal: no cyanosis or clubbing, extremities motor strength 5/5 Skin: no rashes, warm and dry Neurologic: PERRL, EOMI, accommodation nl, no face palsy, no dysarthria Psychiatric: A+Ox3, euthymic affect Results & Data ([facility]) Vital Signs (Past 12 Hours) Vital Signs Temp Pulse Pulse Resp BP BP BP 11/06/19 16:03 69 11/06/19 15:15 36.9 C 78 18 145/66 H 11/06/19 15:01 36.6 C 69 19 145/66 H 11/06/19 14:41 36.9 C 75 18 148/68 H 11/06/19 13:41 36.8 C 74 18 165/66 H 11/06/19 12:41 36.8 C 69 18 146/64 H 11/06/19 12:11 36.9 C 71 18 139/64 11/06/19 11:56 36.9 C 70 18 156/66 H 11/06/19 11:40 36.9 C 71 18 125/65 11/06/19 11:03 36.8 C 70 19 148/75 H 11/06/19 08:00 78 11/06/19 07:29 36.7 C 78 18 165/70 H 176/77 H 11/06/19 05:48 165/67 H Pulse Ox 11/06/19 16:03 11/06/19 15:15 96 11/06/19 15:01 97 11/06/19 14:41 96 11/06/19 13:41 96 11/06/19 12:41 97 11/06/19 12:11 98 11/06/19 11:56 97 11/06/19 11:40 98 11/06/19 11:03 97 11/06/19 08:00 11/06/19 07:29 93 11/06/19 05:48
[2019-11-06] MEDS: PROMETHAZINE HCL 12.5 MG in SODIUM CHLORIDE 0.9% 50 ML IV PRN (20:28)
[2019-11-06] MEDS: ASPIRIN 81 MG ECTAB PO SCH (20:35)
[2019-11-07] MEDS: CEFEPIME 2,000 MG in SYRINGE 7.5 ML IV SCH (00:34)
[2019-11-07] MEDS: NITROGLYCERIN 2% OINTMENT 30GM TUBE EXT SCH ×4 (01:54→18:09)
[2019-11-07 05:46] LABS: Hematocrit (blood only) 29.6 % (37-47); Hemoglobin 9.9 g/dL (12.0-16.0); Mean Corpuscular Hgb Conc 33.4 g/dL (32-36); Mean Corpuscular Volume 86.8 fL (80-100); Mean Platelet Volume 9.4 fL (7.4-10.4); Platelet Count 412 K/uL (130-400); RDW Coefficient of Variation 18.3 % (11.5-14.5); RDW Standard Deviation 56.8 fL (36.4-46.3); Red Blood Count 3.41 M/uL (4.2-5.4); White Blood Count 11.18 K/uL (4.8-10.8)
[2019-11-07] MEDS: HEPARIN SOD 5,000 UNIT/0.5 ML VIAL SQ SCH ×3 (05:54→21:53)
[2019-11-07] MEDS: CEFTAROLINE FOSAMIL ACETATE 300 MG in SODIUM CHLORIDE 0.9% 250 ML IV SCH ×2 (06:00→17:01)
[2019-11-07 06:23] LABS: BUN Creatinine Ratio 19.1 (10-20); Calcium 8.3 mg/dl (8.5-10.1); Creatinine Clr Calc Pharmacy 18.2 ml/min; Est GFR (African American) 20.3; Est GFR (Non-African American) 17.6; Potassium 2.7 mmol/L (3.5-5.1)
[2019-11-07] MEDS: FUROSEMIDE 40 MG in SYRINGE 0 ML IV SCH (08:39)
[2019-11-07] MEDS: POTASSIUM CHLORIDE / WTR 10 MEQ/100 ML PLCT IV SCH ×4 (08:39→11:41)
[2019-11-07] MEDS: FAMOTIDINE 20 MG TAB PO SCH (08:40)
[2019-11-07] MEDS: CLOPIDOGREL BISULFATE 75 MG TAB PO SCH (08:40)
[2019-11-07] MEDS: cloNIDine HCL 0.1 MG TAB PO SCH ×2 (08:40→21:53)
[2019-11-07] MEDS: CYANOCOBALAMIN 500 MCG TABLET (VITAMIN B-12) PO SCH (08:40)
[2019-11-07] MEDS: METOPROLOL TARTRATE 50 MG TAB PO SCH ×2 (08:40→21:52)
[2019-11-07] MEDS: LACTOBACILLUS ACIDOPHILUS (FLORANEX) TAB PO SCH ×3 (08:40→17:05)
[2019-11-07] MEDS: AMLODIPINE BESYLATE 5 MG TAB PO SCH (08:41)
[2019-11-07] MEDS: HydrALAZINE TAB 50 MG TAB PO SCH ×4 (08:41→21:51)
--- NOTE | 2019-11-07 12:08 | Hospitalist Progress Note ---
Date of Service November 07, 2019 Assessment & Plan (1) Acute hypoxemic respiratory failure: Acute hypoxemic respiratory failure: Respiratory status improving gradually with continued diuresis and antibiotic treatment Possible combination of decompensated CHF with diastolic dys function(HFpEF)/community-acquired pneumonia: Patient was hypoxic in [facility] Patient required BiPAP Respiratory status improved with supportive care, nebulizer treatment antibiotic for pneumonia(on cefepime/vancomycin) Anemia: Possibly secondary to anemia of chronic disease/advanced CKD: Anemia of chronic disease: no Evidence of GI bleed, Patient received 1 unit of PRBC transfusion on 11/06/2019-for hemoglobin 8.8 Post transfusion hemoglobin remained stable 9.9 Patient's underlying history of coronary artery disease Cardiology: Transfusion recommended as needed to keep hemoglobin near 10 Acute CHF with diastolic heart failure(HFpEF) Echo: On 09/29/2019: EF 60-65% with concentric LVF, moderate aortic sclerosis without stenosis with mild aortic insufficiency and grade 1 diastolic dysfunction Presented with evidence of volume overload pulmonary vascular congestion/hypoxemia Treated with IV Lasix 40 mg twice daily with adequate diuresis Appreciate input from cardiology, echocardiogram: Showed preserved LV systolic function with normal wall motion Patient's respite status has improved, minimum bilateral lower extremity edema Lasix changed to 40 mg p.o. twice daily, continue to monitor volume status Troponin elevation: Doubt due to acute coronary event/coronary thrombus Possible elevated troponin secondary to type II non-ST elevated [place]/cardiac ischemia secondary to decompensated CHF, hypoxemia, hypertensive urgency Bedside echo: Showed preserved LV systolic function with normal wall motion, no evidence of ACS Cardiology input appreciated-no further cardiac work-up needed Patient is continued with outpatient cardiac meds aspirin Plavix beta-danielle Hypertensive urgency: BP improved after adjustment of medication: Continue to monitor Possible in setting of hypoxemia, respiratory distress Patient is continue with Norvasc/clonidine/hydralazine dose increased to 50 mg 4 times daily/metoprolol dose increased to 50 mg twice daily CKD stage IV: Acute renal failure with CKD stage IV: Creatinine elevated 2.56 possible secondary to diuresis We will order to hold p.m. dose of Lasix, Repeat BMP in a.m. History of C. difficile colitis: No complaint of abdominal pain, no diarrhea Patient is on contact isolation for history of MRSA and C. difficile colitis Added probiotic while getting broad-spectrum antibiotic for pneumonia CODE STATUS: DNI/DO NOT INTUBATE DVT prophylaxis: Disposition: Monitor in PCU/telemetry Patient presents with significant deconditioning, ordered for PT OT evaluation Social service following for discharge planning Admission and Anticipated Discharge Date Admission Date: November 04, 2019 Subjective Patient reports of feeling better, improvement of shortness of breath, still requiring supplemental oxygen No fever or chills, minimal cough Lower extremity swelling has improved Denies of any abdominal pain no nausea vomiting Appetite remains very poor Persistent generalized weakness, fatigue Review of Systems Constitutional: + weakness; no fever and no chills Respiratory: + cough Cardiovascular: + edema; no chest pain, no dyspnea, no orthopnea and no lighth eadedness Physical Exam Constitutional: WD/WN, vitals as above + ill appearing Eyes: PERRL, conjunctivae normal, anicteric sclerae ENMT: external ear and nose normal, oropharynx normal Neck: trachea midline, no thyromegaly Respiratory: normal respiratory effort; no respiratory distress and no labored breathing Auscultation: + rales Cardiovascular: Rate/Rhythm: regular rate and regular rhythm Vessels: no JVD Extremities: + pedal edema Gastrointestinal (Abdomen): Inspection/Auscultation: normal bowel sounds Percussion/Palpation: abdomen soft; abdomen nontender Musculoskeletal: no cyanosis or clubbing, extremities motor strength 5/5 Skin: no rashes, warm and dry Neurologic: PERRL, EOMI, accommodation nl, no face palsy, no dysarthria Psychiatric: A+Ox3, euthymic affect Results & Data ([facility]) Vital Signs (Past 12 Hours) Vital Signs Temp Pulse Pulse Resp BP BP Pulse Ox 11/07/19 11:36 36.8 C 72 18 136/59 L 97 11/07/19 08:00 74 11/07/19 07:51 36.6 C 77 18 170/63 H 91 11/07/19 03:16 36.6 C 72 17 173/68 H 93
[2019-11-07] MEDS ORDERED: FUROSEMIDE 40 MG TAB PO SCH (17:00)
[2019-11-07] MEDS: ASPIRIN 81 MG ECTAB PO SCH (21:52)
[2019-11-08] MEDS: CEFEPIME 2,000 MG in SYRINGE 7.5 ML IV SCH (00:01)
[2019-11-08] MEDS: NITROGLYCERIN 2% OINTMENT 30GM TUBE EXT SCH ×4 (00:01→19:50)
[2019-11-08] MEDS: HEPARIN SOD 5,000 UNIT/0.5 ML VIAL SQ SCH ×2 (06:03→13:28)
[2019-11-08] MEDS: CEFTAROLINE FOSAMIL ACETATE 300 MG in SODIUM CHLORIDE 0.9% 250 ML IV SCH ×2 (06:03→20:28)
[2019-11-08] MEDS: CLOPIDOGREL BISULFATE 75 MG TAB PO SCH (08:19)
[2019-11-08] MEDS: cloNIDine HCL 0.1 MG TAB PO SCH (08:19)
[2019-11-08] MEDS: LACTOBACILLUS ACIDOPHILUS (FLORANEX) TAB PO SCH (08:19)
[2019-11-08] MEDS: METOPROLOL TARTRATE 50 MG TAB PO SCH (08:20)
[2019-11-08] MEDS: HydrALAZINE TAB 50 MG TAB PO SCH (08:20)
[2019-11-08] MEDS: AMLODIPINE BESYLATE 5 MG TAB PO SCH (08:20)
[2019-11-08] MEDS: CYANOCOBALAMIN 500 MCG TABLET (VITAMIN B-12) PO SCH (08:20)
[2019-11-08] MEDS: FAMOTIDINE 20 MG TAB PO SCH (08:20)
[2019-11-08 08:47] LABS: Hematocrit (blood only) 34.1 % (37-47); Hemoglobin 11.4 g/dL (12.0-16.0); Mean Corpuscular Hemoglobin 29.5 pg (25-34); Mean Corpuscular Hgb Conc 33.4 g/dL (32-36); Mean Corpuscular Volume 88.1 fL (80-100); Mean Platelet Volume 9.3 fL (7.4-10.4); Platelet Count 500 K/uL (130-400); RDW Coefficient of Variation 18.2 % (11.5-14.5); RDW Standard Deviation 58.2 fL (36.4-46.3); Red Blood Count 3.87 M/uL (4.2-5.4); White Blood Count 11.46 K/uL (4.8-10.8)
[2019-11-08] MEDS: LABETALOL HCL IV 5 MG/ML 20ML IV PRN (08:50)
--- NOTE | 2019-11-08 09:16 | Hospitalist Progress Note ---
Date of Service November 08, 2019 Assessment & Plan Admission and Anticipated Discharge Date Admission Date: November 04, 2019 Subjective Patient seen around 8:45 AM at PCU room 222 Updated by nursing, noted to have patient with patient noted to have strokelike symptoms, unable to talk, mumbling words, unable to follow instructions Patient is seen at bedside, No overt facial droop noted Unable to follow instructions, garbled speech noted-my last visit to patient yesterday at 5:30 PM around, patient was completely fluent awake alert and oriented, appropriately conversing No flaccid paralysis noted, Able to move limbs, Unable to squeeze hands when asked Stroke alert was called Stat CT head noncontrast ordered Case was reviewed by [facility] telemetry stroke physician Dr. Florez Given unknown duration of change of neurological status, patient is not a TPA candidate Stat CT head noncontrast: Shows large right MCA prior infarct, no acute change Per Dr. Florez, recommendations are judicial control of blood pressure, keep SBP [id number] Rule out other infectious cause of encephalopathy, stat lactic acid level procalcitonin ordered, A.m. labs reviewed, no significant abnormality noted : Ordered for MRI of brain, MRI of head and neck Patient already had echocardiogram done this admission no need to repeat Carotid Doppler ordered to assess carotid artery stenosis Patient was already on aspirin and Plavix At present patient is n.p.o. given acute neurological change, This dysphagia screen ordered, Speech evaluation requested(patient was getting by herself yesterday, no swallow difficulty noted since admission) All p.o. meds will be kept on hold, Aspirin per rectal to be given Continue neuro check, Neurology consulted No prior history of atrial fibrillation, No episode of A. fib noted during this hospital stay on telemetry review Called patient's family, left voice message to daughter Kay Brown MD Results & Data ([facility]) Vital Signs (Past 12 Hours) Vital Signs Temp Pulse Pulse Resp BP BP Pulse Ox 11/08/19 06:49 36.5 C 75 22 191/75 H 97 11/08/19 04:34 36.6 C 73 24 173/63 H 98 11/08/19 00:00 75 11/07/19 23:14 37.2 C 72 24 169/62 H 96
[2019-11-08 09:24] LABS: BUN Creatinine Ratio 19.4 (10-20); Creatinine Clr Calc Pharmacy 15.9 ml/min; Est GFR (Non-African American) 15.5
--- NOTE | 2019-11-08 09:33 | CT Scan Report ---
HEAD CT NONCONTRAST CT DOSE: 614.27 mGy.cm HISTORY: altered mental status TECHNIQUE: Multiaxial CT images of the head were performed without the use of intravenous contrast. A utomated exposure control was utilized for this study. A dose lowering technique was utilized adheri ng to the principles of ALARA. Comparison: None. Findings: The paranasal sinuses and mastoid air cells are clear. The calvarium and skull base are int act. There is no hematoma, midline shift, acute infarct. White matter hypodensity is nonspecific but suggestive of microvascular ischemic change. The ventricles and sulci demonstrate mild age-related in volutional changes. Old right MCA territory infarct. 1.4 cm extra-axial calcified lesion within the l eft parietal region. This likely represents a meningioma. Impression: No acute intracranial abnormality. Old right MCA territory infarct. ACT 112: Negative or not required by law. Electronically signed by: Wilfredo Garzon M.D. 11/08/2019 9:31 AM
[2019-11-08] MEDS ORDERED: PHARMACIST DISCHARGE MED REC CONSULT PRN (09:58)
[2019-11-08] MEDS ORDERED: ASPIRIN 300 MG SUPP PR SCH (10:00)
[2019-11-08] MEDS: METOPROLOL TARTRATE 1 MG/ML VIAL IV SCH ×2 (11:06→19:47)
[2019-11-08] MEDS: POTASSIUM CHLORIDE / WTR 10 MEQ/100 ML PLCT IV SCH ×2 (12:30→13:27)
--- NOTE | 2019-11-08 12:41 | Magnetic Resonance Report ---
Brain MRI WITHOUT CONTRAST HISTORY: Altered mental status. stroke like symptom TECHNIQUE: Multiplanar multisequence MRI of the brain was performed without the use of contrast. COMPARISON STUDY: Head CT 11/08/2019. FINDINGS: There is no mass, hematoma, midline shift, or acute infarct. The paranasal sinuses are emerald r. The mastoid air cells are clear. The ventricles and sulci demonstrate mild age-related involutiona l changes. Scattered foci of T2 hyperintensity seen within the periventricular and subcortical white matter are nonspecific but suggestive of mild microvascular ischemic changes. The major vascular flow voids at the skull base are well-maintained. Old right-sided MCA territory infarct within the right posterior frontal lobe with surrounding T2 signal suggestive of gliosis. IMPRESSION: No acute intracranial abnormality. Old right MCA territory infarct. ACT 112: Negative or not required by law. Electronically signed by: Wilfredo Garzon M.D. 11/08/2019 12:40 PM
--- NOTE | 2019-11-08 12:45 | Magnetic Resonance Report ---
Brain MRA HISTORY: Altered mental status. stroke like symptom TECHNIQUE: 3-D [id number] MRA of the brain was performed without contrast. COMPARISON STUDY: None. FINDINGS: Visualized intracranial internal carotid arteries, distal vertebral arteries, and basilar a rtery are widely patent. 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 Attenuated distal right MCA branches consistent with an old infarct. IMPRESSION: Attenuated distal right MCA branches consistent with the old infarct. Otherwise, no significant steno sis, occlusion, or aneurysm within the [place]. ACT 112: Negative or not required by law. Electronically signed by: Wilfredo Garzon M.D. 11/08/2019 12:44 PM
--- NOTE | 2019-11-08 12:49 | Magnetic Resonance Report ---
NECK MRA HISTORY: Altered mental status. STROKE LIKE SYMPTOM TECHNIQUE: [id number]-ciakof MRA of the neck was performed without contrast. All measurements were calcu lated based on NASCET criteria. COMPARISON STUDY: None. FINDINGS: Lobular density within the right lung apex favors fluid within the right major fissure. The re is also small left pleural effusion. Significant motion artifact resulting in suboptimal evaluatio n. However, no high-grade stenosis or occlusion within the carotid or vertebral arteries. [employer] image s demonstrate a right lung airspace opacity which is better appreciated on the same day chest x-ray. IMPRESSION: 1. Motion artifact. However, no high-grade stenosis or occlusion within the carotid or vertebral [place]. 2. Right lung airspace opacities are again noted. There are also small bilateral pleural effusions. ACT 112: Negative or not required by law. Electronically signed by: Wilfredo Garzon M.D. 11/08/2019 12:48 PM
--- NOTE | 2019-11-08 13:14 | Consultation Report ---
DATE OF CONSULTATION: 11/08/2019 REASON FOR CONSULTATION: Change in mental status. HISTORY OF PRESENT ILLNESS: The patient is a 74-year-old with a complex medical history, which includes anemia of chronic disease, CHF, C. diff, hemorrhagic shock, reflux, hypertension, lupus, history of stroke, chronic kidney disease, and Caroli disease, who was admitted to an outside hospital for acute hypoxic respiratory failure and appeared to have been transferred to our facility on 11/04/2019. Her workup at the outside hospital suggested a right upper lobe pneumonia for which she received multiple antibiotics. EKG suggested ST depressions in II, III, aVF and leads V4 through V6. Troponin is mildly increased. The patient was hypoxic, anemic. There had been prior admissions for worsening renal failure. MEDICATIONS ON ADMISSION: Aspirin, Plavix, B12, amlodipine, sertraline, lactobacillus, Zofran, ranitidine, clonidine, metoprolol, hydralazine, and vancomycin. ALLERGIES: IODINATED CONTRAST MEDIA. PAST MEDICAL HISTORY: Her problem list includes non-STEMI, acute hypoxic respiratory failure, CHF, pneumonia, metabolic acidosis, anemia of chronic disease, acute kidney injury, diastolic congestive heart failure, C. diff, laparoscopic cholecystectomy, hemorrhagic shock, history of colon resection, mood disorder, reflux, lupus, right MCA infarction, atrophy of left kidney, Caroli disease, the patient has had multiple skin cancers, hyperlipidemia, and hypertension. PAST SURGICAL HISTORY: The aforementioned colon resection, colonoscopy, EGD, tonsillectomy, tooth extraction, total abdominal hysterectomy, bilateral salpingo-oophorectomy, laparoscopic cholecystectomy. FAMILY HISTORY: Polyps, cholangiocarcinoma, Alzheimer disease, heart disease, hypertension. The patient apparently was in her usual state of health sometime over the last 24 hours, there was a change in her level of alertness and communication. A stat CT showed a large right MCA infarction. MRI/MRA of the brain were ordered and are pending. Her labs were notable for hypokalemia, positive troponin, worsening renal failure. A chest x-ray has not yet been repeated. Sed rate is greater than 90. Urinalysis not yet repeated. CURRENT MEDICATIONS: Cefepime, ceftaroline, potassium, amlodipine, aspirin 81, clonidine, Plavix, B12, lactobacillus, famotidine, nitroglycerin, hydralazine, metoprolol, subQ heparin, Lasix, atorvastatin, aspirin 300 mg and metoprolol. PHYSICAL EXAMINATION: CURRENT VITAL SIGNS: 187/66, 72, 18, 36.8, 97% on a nasal cannula. GENERAL: The patient is awake and alert. She moves her upper extremities spontaneously, appears to attend to conversation. Follows no commands. Her only responds to movement of the legs is to say 'ow'. She is mildly tender in the abdomen and also acts as if she is in discomfort. HEENT: Her head is normocephalic, atraumatic. NECK: Supple. EXTREMITIES: There are multiple areas of ecchymosis over her arms and legs. NEUROLOGIC: Her pupils were, left eye slightly greater than right eye, both reactive. She appears to have had cataract surgery, could not reliably visualize the optic nerves. Eye movements were conjugate, roving, purposeful. No asymmetry to blink response to visual threat. A mild flattening of the left nasolabial fold. Essentially, the patient was mute. She developed a suck reflex to attempted gag. Upper extremities move symmetrically, drift symmetrically. The patient does not move the legs to command, although tone is normal. Her reflexes are symmetric. Toes appeared downgoing. Sensory, cerebellar not testable. IMPRESSION: This is a patient with a prior right middle cerebral artery infarction. She appears to be globally changed in that she is mute. There is no asymmetric weakness is noted other than the flattening of the left nasolabial fold, which I assume is old. This could be toxic, metabolic, infectious. It could be attributable in part to worsening renal failure. PLAN: Correct metabolic abnormalities, check a urinalysis and culture, chest x-ray. Agree with MRI of the brain, MRA. It appears that the patient is on a fairly high dose of aspirin with Plavix. Would confirm that she indeed is supposed to be taking Asa 381 mg daily, as pt has extensive bruising. We will follow with you. SINGH
[2019-11-08] MEDS: HydrALAZINE HCL 20 MG/ML VIAL IV PRN (16:12)
[2019-11-08 19:01] LABS: Appearance Urine Clear (Clear); Bacteria Urine Automated Negative (Negative); Bilirubin Urine Negative (Negative); Blood Urine Negative (Negative); Color Urine Yellow; Epithelial Cell Urine Auto 0-5 /lpf (0-5); Glucose Urine UA Negative (Negative); Ketones Urine Trace (Negative); Leukocyte Esterase Urine Negative (Negative); Nitrite Urine Negative (Negative); Protein Urine 1+ (Negative); Specific Gravity Urine 1.013 (1.000-1.030); Urobilinogen Urine Negative (Negative)
--- NOTE | 2019-11-08 20:19 | CT Scan Report ---
CT abd pelvis wo con CT DOSE: 364.96 mGy.cm HISTORY: GI bleed. Colon carcinoma. GI bleed , colon CA TECHNIQUE: Multiaxial CT images of the abdomen and pelvis were performed without contrast. A dose lo wering technique was utilized adhering to the principles of ALARA. COMPARISON STUDY: 09/04/2019 FINDINGS: Interval development of bilateral pleural effusions. There is a component of right as well as left lower lobe consolidative change. No findings of a prior cholecystectomy. Overall configuratio n of the liver is unremarkable. There is serpiginous density within the anterior right hepatic lobe i s unchanged. Kidneys negative for hydronephrosis. The left kidney remains somewhat atrophic. The bowel pattern is considered nonobstructive. The appendix is normal. Bladder is relatively collaps ed. There is no free fluid within the pelvic cul-de-sac. IMPRESSION: 1. Nonobstructive bowel pattern. 2.. Unchanged atrophy left kidney with findings of prior cholecystectomy. 3. Interval development of bilateral pleural effusions and partial lower lobe atelectatic change. ACT 112: Negative or not required by law. The above report was generated using voice recognition software. It may contain grammatical, syntax or spelling errors. Electronically signed by: Jean Carlos Stauffer M.D. 11/08/2019 8:18 PM
--- NOTE | 2019-11-08 21:35 | XRay Report ---
XR chest 1V portable CLINICAL HISTORY: bloody sputum dyspnea COMPARISON STUDY: 11/05/2019 FINDINGS: Diffuse bilateral parenchymal infiltrative change. Findings are slightly progressive at the left base and slightly improved overlying the right apex. Mild stable cardiomegaly. Unchanging promi nence of pulmonary vasculature. IMPRESSION: 1. Variable parenchymal infiltrative change. 2. Slight improvement in right apical infiltrate generated changes are slightly progressive change le ft lung base. 3. Unchanging prominence of pulmonary vasculature. ACT 112: Negative or not required by law. The above report was generated using voice recognition software. It may contain grammatical, syntax or spelling errors. Electronically signed by: Jean Carlos Stauffer M.D. 11/08/2019 9:33 PM
[2019-11-08] MEDS: FAMOTIDINE 20 MG in SYRINGE 3 ML IV SCH (22:43)
[2019-11-08 23:08] LABS: Hematocrit (blood only) 29.4 % (37-47)
[2019-11-09] MEDS: METOPROLOL TARTRATE 1 MG/ML VIAL IV SCH ×5 (00:08→23:57)
[2019-11-09] MEDS: NITROGLYCERIN 2% OINTMENT 30GM TUBE EXT SCH ×5 (00:09→23:57)
[2019-11-09] MEDS: CEFTAROLINE FOSAMIL ACETATE 300 MG in SODIUM CHLORIDE 0.9% 250 ML IV SCH (06:11)
[2019-11-09 07:02] LABS: Basophils # (auto) 0.02 K/uL (0-0.2); Basophils % (auto) 0.2 %; Eosinophils # (auto) 0.12 K/uL (0-0.5); Eosinophils % (auto) 1.3 %; Hematocrit (blood only) 30.3 % (37-47); Hemoglobin 9.9 g/dL (12.0-16.0); Immature Granulocytes % (auto) 1.1 %; Lymphocytes # (auto) 2.24 K/uL (1.2-3.4); Lymphocytes % (auto) 23.7 %; Mean Corpuscular Hemoglobin 28.9 pg (25-34); Mean Corpuscular Hgb Conc 32.7 g/dL (32-36); Mean Corpuscular Volume 88.3 fL (80-100); Mean Platelet Volume 9.6 fL (7.4-10.4); Monocytes # (auto) 1.43 K/uL (0.11-0.59); Monocytes % (auto) 15.1 %; Neutrophils # (auto) 5.53 K/uL (1.4-6.5); Neutrophils % (auto) 58.6 %; Platelet Count 464 K/uL (130-400); RDW Coefficient of Variation 18.2 % (11.5-14.5); RDW Standard Deviation 58.7 fL (36.4-46.3); Red Blood Count 3.43 M/uL (4.2-5.4); White Blood Count 9.44 K/uL (4.8-10.8)
[2019-11-09 07:32] LABS: BUN Creatinine Ratio 20.9 (10-20); Calcium 8.3 mg/dl (8.5-10.1); Creatinine Clr Calc Pharmacy 16.5 ml/min; Est GFR (African American) 20.1; Est GFR (Non-African American) 17.3; Potassium 2.7 mmol/L (3.5-5.1)
[2019-11-09] MEDS: ATORVASTATIN 40 MG TAB PO SCH (09:16)
[2019-11-09] MEDS: FAMOTIDINE 20 MG in SYRINGE 3 ML IV SCH ×2 (09:24→21:31)
[2019-11-09] MEDS: HydrALAZINE HCL 20 MG/ML VIAL IV PRN (09:24)
[2019-11-09] MEDS ORDERED: D5NSS + 20MEQ KCL 20 MEQ/1,000 ML BAG IV SCH (10:15)
--- NOTE | 2019-11-09 10:55 | Hospitalist Progress Note ---
Date of Service November 09, 2019 Assessment & Plan (1) Acute hypoxemic respiratory failure: Acute confusion:/Metabolic encephalopathy Change in mental status noted over the weekend, patient became nonverbal, noncommunicative, withdrawing arms and legs with minimum touch Initially code stroke alert was called with concern of possible acute CVA Patient was evaluated [facility] tele-stroke neurology Patient is not a candidate for TPA(none time frame for the acute neurological status change) CT head noncontrast showed previous large right parietal/right MCA infarction Brain MRI, MR angiography of brain and neck: Shows attenuated distal right MCA branches consistent with old infarct, no significant stenosis, no acute stroke or thrombus noted, no high-grade stenosis or occlusion within the carotid or vertebral artery Appreciate input from neurology: Patient's presentation, does not demonstrate any focal deficit, Suggestive of more acute delirium, Patient was on aspirin 81 mg daily and Plavix 75 mg daily Aspirin 300 mg per rectal ordered as patient is not able to swallow Unable to do a dysphasia screen, as patient was not cooperating Continue to do neuro check aspiration, fall precaution Patient is already on broad-spectrum IV antibiotic IV cefepime bilateral pneu monia, UA essentially negative Leukocytosis has resolved, Patient's daughter Asa present at bedside, update given Blood in stool/positive stool Hemoccult/history of colon CA No melanotic stool noted, CT abdomen pelvis shows no evidence of obstruction, no acute GI pathology, H&H been stable Patient has been n.p.o.-severe dysphagia, altered mental status Acute hypoxemic respiratory failure: Respiratory status improving gradually with continued diuresis and antibiotic treatment Possible combination of decompensated CHF with diastolic dysfunc tion(HFpEF)/community-acquired pneumonia: Patient was hypoxic in [facility] Patient required BiPAP Respiratory status improved with supportive care, nebulizer treatment antibiotic for pneumonia(on cefepime/vancomycin) Anemia: Possibly secondary to anemia of chronic disease/advanced CKD: Anemia of chronic disease: Stool noted to be stressed heme positive Patient received 1 unit of PRBC transfusion on 11/06/2019-for hemoglobin 8.8 Post transfusion hemoglobin remained stable 9.9 Patient's underlying history of coronary artery disease Cardiology: Transfusion recommended as needed to keep hemoglobin near 10 Acute CHF with diastolic heart failure(HFpEF) Echo: On 09/29/2019: EF 60-65% with concentric LVF, moderate aortic sclerosis without stenosis with mild aortic insufficiency and grade 1 diastolic dysfunction Presented with evidence of volume overload pulmonary vascular congestion/hypoxemia Treated with IV Lasix 40 mg twice daily with adequate diuresis Appreciate input from cardiology, echocardiogram: Showed preserved LV systolic function with normal wall motion Lasix has been kept on hold secondary to acute renal failure Troponin elevation: Doubt due to acute coronary event/coronary thrombus Possible elevated troponin secondary to type II non-ST elevated [place]/cardiac ischemia secondary to decompensated CHF, hypoxemia, hypertensive urgency Bedside echo: Showed preserved LV systolic function with normal wall motion, no evidence of ACS Cardiology input appreciated-no further cardiac work-up needed Recommends continued with outpatient cardiac meds aspirin Plavix [id number] p.o. medication has been kept on hold for risk of aspiration, Hypertensive urgency: SBP remained persistently elevated more than 118 On oral BP meds has been kept on hold secondary to dysphasia, altered mental status Beta-danielle changed to IV Lopressor 5 mg every 6 hours, hydralazine changed to IV, Changed to p.o. clonidine to patch Continue PRN labetalol And Nitropaste CKD stage IV: Acute renal failure with CKD stage IV: Creatinine elevated 2.56 possible secondary to diuresis Lasix has been kept on hold, CT abdomen pelvis shows no evidence of stone or urinary obstruction Nephrology consulted, appreciate input History of C. difficile colitis: No complaint of abdominal pain, no diarrhea Patient is on contact isolation for history of MRSA and C. difficile colitis Repeat C. difficile assay ordered for report of diarrhea CODE STATUS: DNI/DO NOT INTUBATE DVT prophylaxis: Disposition: Patient's prognosis remains guarded, Continue to monitor in PCU/telemetry, Update given to patient's daughter present at bedside Admission and Anticipated Discharge Date Admission Date: November 04, 2019 Subjective Patient is confused, minimally responsive, opens eyes, eyes not able to follow commands, cough has improved, no fever or chills Review of Systems Review of Systems: Unobtainable due to mental health condition Physical Exam Constitutional: WD/WN, vitals as above + ill appearing Eyes: PERRL, conjunctivae normal, anicteric sclerae ENMT: external ear and nose normal, oropharynx normal Neck: trachea midline, no thyromegaly Respiratory: normal respiratory effort; no respiratory distress and no labored breathing Auscultation: + rales Cardiovascular: Rate/Rhythm: regular rate and regular rhythm Vessels: no JVD Extremities: + pedal edema Gastrointestinal (Abdomen): Inspection/Auscultation: normal bowel sounds Percussion/Palpation: abdomen soft; abdomen nontender Musculoskeletal: no cyanosis or clubbing, extremities motor strength 5/5 Skin: no rashes, warm and dry Neurologic: PERRL, EOMI, accommodation nl, no face palsy, no dysarthria Psychiatric: A+Ox3, euthymic affect Results & Data ([facility]) Vital Signs (Past 12 Hours) Vital Signs Temp Pulse Pulse Pulse Resp BP BP 11/09/19 09:27 77 11/09/19 08:00 77 11/09/19 07:33 36.4 C L 76 18 184/74 H 11/09/19 06:12 77 179/73 H 11/09/19 03:32 36.6 C 74 18 182/68 H 11/09/19 00:08 78 185/70 H 11/08/19 23:08 36.4 C L 76 16 BP Pulse Ox 11/09/19 09:27 201/61 H 11/09/19 08:00 11/09/19 07:33 95 11/09/19 06:12 11/09/19 03:32 95 11/09/19 00:08 11/08/19 23:08 189/68 H 94
[2019-11-09] MEDS: POTASSIUM CHLORIDE / WTR 10 MEQ/100 ML PLCT IV SCH ×5 (11:10→22:38)
[2019-11-09] MEDS: PROMETHAZINE HCL 12.5 MG in SODIUM CHLORIDE 0.9% 50 ML IV PRN ×2 (11:38→23:40)
--- NOTE | 2019-11-09 11:57 | Progress Notes ---
DATE: 11/09/2019 SUBJECTIVE: I am seeing the patient in followup of what appears to be an encephalopathy. MRI of the brain showed no acute abnormality. There is a prior right MCA infarction, which was known. MRA of the head showed attenuated distal right MCA branches consistent with old infarct. Neck MRA showed motion artifact, no high-grade stenosis within the carotids or vertebral arteries. Small bilateral pleural effusions. Labs today are notable for a BUN of 54 and creatinine of 2.59. I have reviewed the results of the chest x-ray and CT of the abdomen. Last evening, apparently the patient was saying short sentences and single words. I saw her today at the bedside with her daughter. OBJECTIVE: VITAL SIGNS: Blood pressure 184/73, 80, 18, 36.9. GENERAL: The patient is sleepy, but arousable. NEUROLOGIC: Pupils are equal, round and reactive to light. The optic nerves are unremarkable. Eye movements are conjugate. Movement of the upper extremities is purposeful. There is decreased tone in the left upper. There is symmetric tone in the lowers. Reflexes are symmetric. Toes are downgoing. The patient follows no commands, occasionally moans. IMPRESSION AND PLAN: This patient appears to have an encephalopathy superimposed on an old right middle cerebral artery infarction. This is likely polyfactorial. At this point, hydration has been increased. Would recommend checking a hepatic function and an ammonia level. I see no evidence to suggest a postictal phenomenon or nonconvulsive status epilepticus, although if the patient continued not to improve, then an EEG would be reasonable. Hypertensive encephalopathy is within the differential, although her pressures are likely not consistently elevated enough to be causing this picture. Dr. Brown is increasing the patient's antihypertensives in an effort to further reduce blood pressure. We will follow with you.
[2019-11-09 11:59] LABS: Albumin Level 1.7 gm/dl (3.4-5.0); Bilirubin Direct 0.2 mg/dl (0-0.2); Bilirubin,Total 0.7 mg/dl (0.2-1)
[2019-11-09] MEDS ORDERED: cloNIDine HCL 0.1 MG/24 HR TRANSDERM SYS TD SCH (12:00)
[2019-11-09] MEDS: CEFEPIME 2,000 MG in SYRINGE 7.5 ML IV SCH (14:27)
--- NOTE | 2019-11-09 14:41 | Nephrology Consultation ---
Date of Consultation November 09, 2019 Assessment & Plan (1) Acute kidney injury superimposed on CKD: Patient with acute kidney injury on CKD. Baseline creatinine of 1.8-2. Her creatinine is now around 2.5 which is slightly higher than her baseline. Etiology of worsening renal function likely ischemic ATN in setting of recent pneumonia. Management of ATN is supportive. She has no indication for dialysis.Chest x-ray showed pulmonary vascular congestion Recommend bladder scan and Fischer catheter if patient is retaining urine. Repeat BMP at 6 PM and daily BMP. Avoid nephrotoxins such as contrast Will change fluids to D5 with 40 mEq of potassium at 80 mEq/h (2) Hypertension: Blood pressure is above target but given encephalopathy and question of CVA, would avoid lowering the blood pressure too much. Goal systolic of 1 50-1 60. No changes in current antihypertensives. (3) Encephalopathy: Likely metabolic encephalopathy in setting of infection. This likely uremia given BUN of only 54 in a patient with chronic CKD stage IV. Continue to monitor mental status. Avoid opioids or psychoactive medications. (4) Hypokalemia: Patient with the ongoing hypokalemia. She is getting 30 mEq of IV potassium today. Recommend repeat BMP at 6 PM and if potassium is still 3 or less, would give an additional 20 mEq of IV potassium. History of Present Illness Attending Physician: Kay Brown MD History of Present Illness This is 74-year-old female who was admitted on 11/05/2019 as a transfer from [facility] with pneumonia and EDYTA on CKD. I have been asked to see her for worsening renal function. Past medical history includes non-proteinuric CKD 4, baseline creatinine 1.8-2.0 in 2019, hypertension, left renal atrophy, history of 2017 stroke without residual deficit, lupus on no chronic immunosuppression and historically without evidence of renal involvement, s/p July 2019 colon Resection at outside hospital. She underwent laparoscopic cholecystectomy on complicated by C. difficile infection and hemorrhagic shock with readmission September 29- for acute respiratory failure from pulmonary edema after her diuretics were discontinued at rehab. She was hospitalized in September 2019 with AK I am CKD. Creatinine peaked around 2.7 but later returned close to baseline at 2.3. During this admission she came in with a creatinine of 2.2 which increased to as high as 2.8 yesterday and now down to 2.5.Patient also developed altered mental status yesterday. She is essentially mute but groans and moans to touch. She opens eyes to voice. She is globally weak. MRA and MRI of head and neck fairly unremarkable. She is being followed by neurology. Patient has also been hypokalemic with potassium of high twos to low threes since admission. She is unable to give history. She was seen with the daughter at the bedside. History also obtained by speaking with the providers Allergies Allergy/AdvReac Type Severity Reaction Status Date / Time Iodinated Contrast Media Allergy Severe HIVES/DIFFICULTY Verified 10/06/19 13:33 SWALLOWING Home Medications Home Medications Medication Instructions Recorded Confirmed Type aspirin 81 mg PO HS 08/19/18 11/05/19 History clopidogrel 75 mg PO QAM 08/19/18 11/05/19 History cyanocobalamin (vitamin B-12) 1,000 mcg PO QAM 08/19/18 11/05/19 History amlodipine 10 mg PO DAILY 08/30/19 11/05/19 History sertraline 50 mg PO DAILY 08/30/19 11/05/19 History Lactobacillus acidoph-L.bulgar 1 tab PO TIDM 10 Days #30 tab 10/01/19 11/05/19 Rx ondansetron HCl 4 mg PO Q8 PRN 10/10/19 11/05/19 History ranitidine HCl 150 mg PO BID 10/10/19 11/05/19 History clonidine HCl 0.1 mg PO BID 30 Days #60 tab 10/13/19 11/05/19 Rx metoprolol tartrate 25 mg PO BID 30 Days #60 tab 10/13/19 11/05/19 Rx hydralazine 25 mg PO TID 11/05/19 11/05/19 History vancomycin PO Q6 11/05/19 History Patient History Medical History Atrophy of left kidney C. difficile colitis (Acute) Cancer MULTIPLE SKIN CANCER REMOVALS (RADIATION FOR SKIN CANCER/UPPER LIP) Carolis disease (Chronic) Chronic diastolic CHF (congestive heart failure) CKD (chronic kidney disease), stage IV (Chronic) Endometriosis GERD (gastroesophageal reflux disease) (Chronic) History of CVA (cerebrovascular accident) (Chronic) 2016, no residual deficits Hyperlipidemia Hypertension (Chronic) Lupus (Chronic) Migraine Mood disorder Osteoarthritis Surgical History History of colon resection (Chronic) Aug 05 2019 at [facility]. Patient stated she had surgery early in the morning and didn't remember waking up until 1 AM. She is unaware of how long the procedure was and she was not intubated post-op. History of colonoscopy History of esophagogastroduodenoscopy (EGD) History of tonsillectomy History of tooth extraction History of total abdominal hysterectomy and bilateral salpingo-oophorectomy S/P laparoscopic cholecystectomy (09/09/19) Laparoscopic Cholecystectomy Dr. Madsen 09-09-19 Family History Father Family hx colonic polyps Sister Cholangiocarcinoma Other Alzheimer disease Heart disease Hypertension Social History Preferred Language: [place] Communication Ability: Effective Magistrate Judge Required: No Beliefs That Will Affect Care: None marital status: / Current Living Situation: Alone Other Information That Helps Us Care for You: No Feels Safe at Home: Yes Safety Concerns: Feels Safe At This Time Smoking Status: Never smoker Second Hand Exposure: No ; Hx Alcohol Use: No Hx Substance Use: No Review of Systems Review of Systems: Unobtainable due to cognitive status Physical Exam Physical Exam: General exam: Appears comfortable, no acute distress HEENT: Pupils are equal and reactive to light Neck: No JVD, neck is supple trachea is midline Respiratory system: Reduced breath sounds bilaterally. Gastrointestinal: Abdomen is soft, non distended, non tender, bowel sounds are present CVS: Regular rate and rhythm. No murmurs, rubs or gallops Musculoskeletal: No joint or muscle tenderness Extremities: Non tender, no edema, peripheral pulses are present Neuro: Awake, moans and groans to touch, global weakness Skin: No rashes Results & Data Vital Signs (Past 12 Hours) Vital Signs Temp Pulse Pulse Pulse Resp BP BP 11/09/19 11:31 36.9 C 80 18 11/09/19 11:22 80 184/73 H 11/09/19 09:27 77 11/09/19 08:00 77 11/09/19 07:33 36.4 C L 76 18 184/74 H 11/09/19 06:12 77 179/73 H 11/09/19 03:32 36.6 C 74 18 182/68 H BP Pulse Ox 11/09/19 11:31 184/73 H 94 11/09/19 11:22 11/09/19 09:27 201/61 H 11/09/19 08:00 11/09/19 07:33 95 11/09/19 06:12 11/09/19 03:32 95 Laboratory Results 11/09/19 06:46 11/09/19 11/09/19 06:46 11:26 WBC 9.44 RBC 3.43 L MCV 88.3 MCH 28.9 MCHC 32.7 RDW Std Deviation 58.7 H RDW Coeff of Aurelia 18.2 H Plt Count 464 H MPV 9.6 Albumin 1.7 L (1) Hypertension Hypertension type: essential hypertension Qualified Code(s): I10 - Essential (primary) hypertension
[2019-11-09] MEDS: LABETALOL HCL IV 5 MG/ML 20ML IV PRN (15:49)
[2019-11-09] MEDS: CHECK CLONIDINE PATCH PLACEMENT SCH ×2 (16:28→23:57)
[2019-11-09 18:22] LABS: BUN Creatinine Ratio 20.6 (10-20); Calcium 8.3 mg/dl (8.5-10.1); Est GFR (African American) 20.7; Est GFR (Non-African American) 17.9; Potassium 3.1 mmol/L (3.5-5.1)
[2019-11-09] MEDS ORDERED: POTASSIUM CHLORIDE 20 MEQ/15 ML UDC PO STA (19:42)
[2019-11-09] MEDS: D5W AND 1/2NSS + 20MEQ KCL 20 MEQ/1,000 ML BAG IV SCH (21:15)
[2019-11-09] MEDS: HydrALAZINE HCL 20 MG/ML VIAL IV SCH (21:30)
[2019-11-10 00:57] LABS: Influenza B virus by PCR Neg for Influ B (Neg)
[2019-11-10] MEDS: ACETAMINOPHEN 1,000 MG/100 ML VIAL IV PRN (02:30)
[2019-11-10] MEDS: OSELTAMIVIR PHOSPHATE SUSP 30 MG/5 ML UDP PO SCH ×2 (02:31→17:55)
[2019-11-10] MEDS: LABETALOL HCL IV 5 MG/ML 20ML IV PRN ×2 (03:24→07:53)
[2019-11-10] MEDS: HydrALAZINE HCL 20 MG/ML VIAL IV SCH ×3 (06:02→22:16)
[2019-11-10] MEDS: METOPROLOL TARTRATE 1 MG/ML VIAL IV SCH ×3 (06:03→18:17)
[2019-11-10] MEDS: NITROGLYCERIN 2% OINTMENT 30GM TUBE EXT SCH ×3 (06:04→18:08)
[2019-11-10] MEDS: CHECK CLONIDINE PATCH PLACEMENT SCH ×2 (07:45→18:07)
[2019-11-10 07:56] LABS: Basophils # (auto) 0.05 K/uL (0-0.2); Basophils % (auto) 0.6 %; Eosinophils # (auto) 0.32 K/uL (0-0.5); Eosinophils % (auto) 3.7 %; Hemoglobin 9.8 g/dL (12.0-16.0); Immature Granulocytes # (auto) 0.14 K/uL (0.00-0.02); Immature Granulocytes % (auto) 1.6 %; Lymphocytes # (auto) 2.65 K/uL (1.2-3.4); Lymphocytes % (auto) 30.3 %; Mean Corpuscular Hemoglobin 28.9 pg (25-34); Mean Corpuscular Hgb Conc 32.7 g/dL (32-36); Mean Corpuscular Volume 88.5 fL (80-100); Mean Platelet Volume 9.5 fL (7.4-10.4); Monocytes # (auto) 1.49 K/uL (0.11-0.59); Neutrophils # (auto) 4.11 K/uL (1.4-6.5); Neutrophils % (auto) 46.8 %; Platelet Count 461 K/uL (130-400); RDW Coefficient of Variation 18.3 % (11.5-14.5); RDW Standard Deviation 58.8 fL (36.4-46.3); Red Blood Count 3.39 M/uL (4.2-5.4); White Blood Count 8.76 K/uL (4.8-10.8)
[2019-11-10 08:31] LABS: Albumin Level 1.7 gm/dl (3.4-5.0); BUN Creatinine Ratio 18.2 (10-20); Bilirubin Direct 0.2 mg/dl (0-0.2); Creatinine Clr Calc Pharmacy 18.2 ml/min; Est GFR (African American) 21.6; Est GFR (Non-African American) 18.6; Potassium 3.2 mmol/L (3.5-5.1)
[2019-11-10 08:34] LABS: Bilirubin,Total 0.7 mg/dl (0.2-1); Total Protein 6.9 gm/dl (6.4-8.2)
[2019-11-10] MEDS: D5W AND 1/2NSS + 20MEQ KCL 20 MEQ/1,000 ML BAG IV SCH (09:04)
[2019-11-10] MEDS: ATORVASTATIN 40 MG TAB PO SCH (09:05)
[2019-11-10] MEDS: FAMOTIDINE 20 MG in SYRINGE 3 ML IV SCH (09:10)
[2019-11-10] MEDS: PROMETHAZINE HCL 12.5 MG in SODIUM CHLORIDE 0.9% 50 ML IV PRN (09:41)
--- NOTE | 2019-11-10 09:50 | Nephrology Progress Note ---
Date of Service November 10, 2019 Assessment & Plan (1) Acute kidney injury superimposed on CKD: Patient with acute kidney injury on CKD. Baseline creatinine of 1.8-2. Her creatinine is today 2.4 which is slightly higher than her baseline. Etiology of worsening renal function likely ischemic ATN in setting of recent pneumonia, influenza. Management of ATN is supportive. She has no indication for dialysis. Chest x-ray showed pulmonary vascular congestion -low threshold for gray -repeat bmp ordered 1600 -daily BMP. Avoid nephrotoxins such as contrast -changed fluids to D5 with 40 mEq of potassium at 125 mL/h continuous (2) Hypertension: Blood pressure is above target but given encephalopathy and question of CVA, would avoid lowering the blood pressure too much. Goal systolic of 150- 160. -increased hydralazine to 20 mg q8 hr -wrote for prn hydralazine -continue prn labetalol, standing metoprolol IV orders and clonidine patch (3) Encephalopathy: Likely metabolic encephalopathy in setting of infection. This likely uremia given BUN of only 54 in a patient with chronic CKD stage IV. Continue to monitor mental status. Avoid opioids or psychoactive medications. (4) Hypokalemia: Patient with the ongoing hypokalemia. She is getting 30 mEq of IV potassium today. Recommend repeat BMP at 6 PM and if potassium is still 3 or less, would give an additional 20 mEq of IV potassium. -cont to hold lasix -gave another 30 mEq K as riders (5) Hypernatremia: Na 149 w/ hyperchloremia, hypokalemia Present on Admission?: Yes Admission and Anticipated Discharge Date Admission Date: November 04, 2019 Subjective remains w/ altered MS; tested + for flu ON Review of Systems Review of Systems: Unobtainable due to reduced consciousness (pt alert, tracks; aphasic) Physical Exam Constitutional: well developed and + frail appearing; no acute distress (lying in bed on 02nc) Eyes: EOM intact bilaterally ENMT: Ears: no external ear abnormality Nose: no external nose abnormality Mouth: + dry oral mucous membranes Neck: no nuchal rigidity Respiratory: normal respiratory effort; no respiratory distress and no cough Auscultation: + diminished lung sounds (on anterior exam) Cardiovascular: RRR, no murmur, no edema Gastrointestinal (Abdomen): Inspection/Auscultation: normal bowel sounds Percussion/Palpation: + abdomen tender (grimaces w/ moderate or mild palpation BLUQ and epigastrium) and abdomen soft Musculoskeletal: Extremities: strength 5/5 throughout Skin: no rashes, warm and dry (except some petechiae/patches forearmL) Neurologic: Speech / Cognition: + abnormal speech (no words, does make sounds) hammond, no tremor Genitourinary: no gray Results & Data ([place]) Vital Signs (Past 12 Hours) Vital Signs Temp Pulse Pulse Pulse Resp BP BP 11/10/19 09:05 77 188/70 H 11/10/19 07:28 37.5 C 11/10/19 07:00 37.0 C 77 16 189/73 H 11/10/19 06:03 75 197/75 H 11/10/19 02:52 37.7 C H 76 20 191/71 H 11/09/19 23:22 37.6 C H 11/09/19 23:07 36.7 C 81 16 183/65 H Pulse Ox 11/10/19 09:05 11/10/19 07:28 11/10/19 07:00 92 11/10/19 06:03 11/10/19 02:52 95 11/09/19 23:22 11/09/19 23:07 95 Laboratory Results 11/10/19 07:42 11/10/19 07:42 (1) Hypertension Hypertension type: essential hypertension Qualified Code(s): I10 - Essential (primary) hypertension
[2019-11-10] MEDS ORDERED: HydrALAZINE HCL 20 MG/ML VIAL IV STA (10:09)
--- NOTE | 2019-11-10 10:47 | XRay Report ---
XR KUB/Abdomen 1 view CLINICAL HISTORY: abdominal pain COMPARISON STUDY: 09/09/2019 FINDINGS: There is no pathologic bowel dilatation. There are surgical clips within the right upper qu adrant consistent with a prior cholecystectomy. There are few calcifications projected over the left renal shadow. These could represent calculi or vascular calcifications. IMPRESSION: Nonobstructive bowel gas pattern. ACT 112: Negative or not required by law. Electronically signed by: Uriah Tyler M.D. 11/10/2019 10:46 AM
--- NOTE | 2019-11-10 10:49 | XRay Report ---
XR chest 1V portable CLINICAL HISTORY: SOB dyspnea COMPARISON STUDY: 11/08/2019 FINDINGS: Slight increase in prominence of the right apical as well as left basilar parenchymal infil trative change. Interval increase in cardiac size as well as increased prominence of pulmonary vasculature. This woul d indicate a component of developing congestive failure. IMPRESSION: 1. Developing congestive heart failure. 2. This is superimposed upon slightly progressive right apical infiltrative change and mild left basi lar infiltrative change. ACT 112: Negative or not required by law. The above report was generated using voice recognition software. It may contain grammatical, syntax or spelling errors. Electronically signed by: Jean Carlos Stauffer M.D. 11/10/2019 10:47 AM
[2019-11-10] MEDS: POTASSIUM CHLORIDE 40 MEQ in DEXTROSE 5% 1,000 ML IV SCH ×2 (11:11→22:16)
[2019-11-10] MEDS: CEFEPIME 2,000 MG in SYRINGE 7.5 ML IV SCH (12:31)
--- NOTE | 2019-11-10 14:22 | Neurology Progress Note ---
Date of Service November 10, 2019 Assessment & Plan (1) Encephalopathy: 1. no family in room would be helpful to have baseline 2. correct lyte abnormalities 3. CHF and infiltrates continue to monitor and treat 4. dementia /delirium? in setting of infection? 5. continue aspirin 81 mg daily once able to tolerate orals 6. HTN- slowly correct 7. PT/OT for discharge needs 8. nutrition - may need supplements thiamine 9. EEG- r/o subclinical seizure (2) Hypertension: (3) History of CVA (cerebrovascular accident): Admission and Anticipated Discharge Date Admission Date: November 04, 2019 Supervising Physician Co-Signing Physician Notes I have seen and discussed above patient with Dr Gypsy Vogel, neurology. PT seen, and discussed with Marcial. Daughter in room. Labs reviewed and show mild improvement of hydration, still elevated NA.Pt is awake alert, attends to room,voice. Follows no commands although responds in pain to movement of the limbs. Neck is supple, pupils equal. REflexes symm, toes down. Impression encephalopathy, etiology pbly polyfactorial. continue hydration. Have ordered EEG, thiamine to be supplemented. Query LP if EEG nml and pt not improving. Dr Brown has broadened antibiotic coverage to include WIRE COMMUNICATIONS ENGINEER. MICKI Vogel MD Bennett Gonzalez is a 74 year old female with a PMH- anemia chronic disease, CHF, C. difficile colitis, hemorrhagic shock, GERD, hypertension, lupus, history of CVA, CKD stage IV and Carolis disease. She presented to [facility] with severe abdominal pain, nausea, dry heaving, and shortness of breath. Her CXR suggestive of right upper lobe pneumonia, for which she received vancomycin IV, cefepime IV and levofloxacin IV. EKG showed suggested ST depressions/ischemia in leads II, III and aVF and leads V4 through V6, and troponin which was initially 0.062 had a mild increase to 0.086. She was also found to be hypoxic, with pulse ox 82% on room air, and was placed on Vapotherm with improvement to 92%. She was found to be mildly anemic with a hemoglobin of 7.7-8.3 range, and was being transfused 1 unit PRBCs. She is awake but only "moans" no verbal responses. no family in room. Physical Exam Physical Exam: Gen: awake pupils reactive L>R lungs course breath sounds CV RRR abdomen mildly tender moans with passive movement legs bilaterally down going toes mute to commands flattening of nasolabial fold -left extensive bruising of skin Results & Data ([facility]) Vital Signs (Past 12 Hours) Vital Signs Temp Pulse Pulse Pulse Resp BP BP 11/10/19 14:03 37.1 C 78 20 182/67 H 11/10/19 11:38 91 H 187/82 H 11/10/19 11:28 37.4 C 91 H 20 187/82 H 11/10/19 09:05 77 188/70 H 11/10/19 08:00 74 11/10/19 07:28 37.5 C 11/10/19 07:00 37.0 C 77 16 189/73 H 11/10/19 06:03 75 197/75 H 11/10/19 02:52 37.7 C H 76 20 191/71 H Pulse Ox 11/10/19 14:03 93 11/10/19 11:38 11/10/19 11:28 94 11/10/19 09:05 11/10/19 08:00 11/10/19 07:28 11/10/19 07:00 92 11/10/19 06:03 11/10/19 02:52 95 Laboratory Results Abnormal lab results 11/09/19 11/09/19 11/10/19 Range/Units 17:58 23:10 00:00 RBC (4.2-5.4) M/uL Hgb (12.0-16.0) g/dL Hct (37-47) % RDW Std Deviation (36.4-46.3) fL RDW Coeff of Aurelia (11.5-14.5) % Plt Count (130-400) K/uL Immature Gran # (Auto) (0.00-0.02) K/uL [place] # (Auto) (0.11-0.59) K/uL Sodium 149 H (136-145) mmol/L Potassium 3.1 L (3.5-5.1) mmol/L Chloride 116 H (98-107) mmol/L BUN 52 H (7-18) mg/dl Creatinine 2.52 H (0.6-1.2) mg/dl BUN/Creatinine Ratio 20.6 H (10-20) Glucose 100 H (70-99) mg/dl POC Glucose 102 H (70-99) mg/dl Calcium 8.3 L (8.5-10.1) mg/dl AST (15-37) U/L Alkaline Phosphatase (45-117) U/L Albumin (3.4-5.0) gm/dl Procalcitonin (0-0.5) ng/ml Influenza Type A (PCR) Pos for Influ A A* (Neg) 11/10/19 11/10/19 11/10/19 Range/Units 05:13 07:42 07:42 RBC 3.39 L (4.2-5.4) M/uL Hgb 9.8 L (12.0-16.0) g/dL Hct 30.0 L (37-47) % RDW Std Deviation 58.8 H (36.4-46.3) fL RDW Coeff of Aurelia 18.3 H (11.5-14.5) % Plt Count 461 H (130-400) K/uL Immature Gran # (Auto) 0.14 H (0.00-0.02) K/uL [place] # (Auto) 1.49 H (0.11-0.59) K/uL Sodium 149 H (136-145) mmol/L Potassium 3.2 L (3.5-5.1) mmol/L Chloride 118 H (98-107) mmol/L BUN 45 H (7-18) mg/dl Creatinine 2.44 H (0.6-1.2) mg/dl BUN/Creatinine Ratio (10-20) Glucose 119 H (70-99) mg/dl POC Glucose 122 H (70-99) mg/dl Calcium (8.5-10.1) mg/dl AST 80 H (15-37) U/L Alkaline Phosphatase 199 H (45-117) U/L Albumin 1.7 L (3.4-5.0) gm/dl Procalcitonin (0-0.5) ng/ml Influenza Type A (PCR) (Neg) 11/10/19 11/10/19 Range/Units 10:30 11:52 RBC (4.2-5.4) M/uL Hgb (12.0-16.0) g/dL Hct (37-47) % RDW Std Deviation (36.4-46.3) fL RDW Coeff of Aurelia (11.5-14.5) % Plt Count (130-400) K/uL Immature Gran # (Auto) (0.00-0.02) K/uL [place] # (Auto) (0.11-0.59) K/uL Sodium (136-145) mmol/L Potassium (3.5-5.1) mmol/L Chloride (98-107) mmol/L BUN (7-18) mg/dl Creatinine (0.6-1.2) mg/dl BUN/Creatinine Ratio (10-20) Glucose (70-99) mg/dl POC Glucose 129 H (70-99) mg/dl Calcium (8.5-10.1) mg/dl AST (15-37) U/L Alkaline Phosphatase (45-117) U/L Albumin (3.4-5.0) gm/dl Procalcitonin 1.41 H (0-0.5) ng/ml Influenza Type A (PCR) (Neg) Diagnostic Findings KUB-here is no pathologic bowel dilatation. There are surgical clips within the right upper quadrant consistent with a prior cholecystectomy. There are few calcifications projected over the left renal shadow. These could represent calculi or vascular calcifications. CXR-Developing congestive heart failure. This is superimposed upon slightly progressive right apical infiltrative change and mild left basilar infiltrative change. (1) Hypertension Hypertension type: essential hypertension Qualified Code(s): I10 - Essential (primary) hypertension
--- NOTE | 2019-11-10 15:42 | Hospitalist Progress Note ---
Date of Service November 10, 2019 Assessment & Plan (1) Acute hypoxemic respiratory failure: Influenza A positive: Noted to be positive influenza A Ordered for Tamiflu, need to change to parenteral dose if possible as patient is not able to take p.o. Continue droplet precaution Low-grade fever noted possible secondary to influenza, has bilateral pneumonia as well, IV Tylenol as needed Acute renal failure on CKD stage IV: Appreciate input from nephrology, Possible ATN in the setting of infection, poor p.o. intake dehydration Fischer catheter placed, -daily BMP. Avoid nephrotoxins such as contrast -changed fluids to D5 with 40 mEq of potassium at 125 mL/h continuous Hypernatremia: Possible secondary to dehydration, patient has not been able to take any p.o. intake for last 2-3 days IV fluids changed to dextrose/D5 by nephrology, on the BMP Hypertension: Hypertensive urgency with SBP persistently elevated more than 180 Goal systolic of 150-160. -increased hydralazine to 20 mg q8 hr Outpatient oral BP meds has been kept on hold secondary to dysphasia, altered mental status Beta-danielle changed to IV Lopressor 5 mg every 6 hours, hydralazine changed to IV, Changed to p.o. clonidine to patch /on Nitropaste Continue on PRN labetalol Patient will need continued telemetry monitoring Acute confusion:/Metabolic encephalopathy Change in mental status noted over the weekend, patient became nonverbal, noncommunicative, withdrawing arms and legs with minimum touch Initially code stroke alert was called with concern of possible acute CVA Patient was evaluated [facility] tele-stroke neurology Patient is not a candidate for TPA(none time frame for the acute neurological status change) CT head noncontrast showed previous large right parietal/right MCA infarction Brain MRI, MR angiography of brain and neck: Shows attenuated distal right MCA branches consistent with old infarct, no significant stenosis, no acute stroke or thrombus noted, no high-grade stenosis or occlusion within the carotid or vertebral artery Appreciate input from neurology: Patient's presentation, does not demonstrate any focal deficit, Suggestive of more acute delirium, Patient was on aspirin 81 mg daily and Plavix 75 mg daily Aspirin 300 mg per rectal ordered as patient is not able to swallow Unable to do a dysphasia screen, as patient was not cooperating Continue to do neuro check aspiration, fall precaution Patient is already on broad-spectrum IV antibiotic IV cefepime bilateral pneumonia, UA essentially negative Leukocytosis has resolved, Patient's daughter Asa present at bedside, update given Blood in stool/positive stool Hemoccult/history of colon CA No melanotic stool noted, CT abdomen pelvis shows no evidence of obstruction, no acute GI pathology, H&H been stable Patient has been n.p.o.-severe dysphagia, altered mental status Acute hypoxemic respiratory failure: Respiratory status improving gradually with continued diuresis and antibiotic treatment Possible combination of decompensated CHF with diastolic dysfunction(HFpEF)/community-acquired pneumonia: Patient was hypoxic in [facility] Patient required BiPAP Respiratory status improved with supportive care, nebulizer treatment antibiotic for pneumonia(on cefepime/vancomycin) Anemia: Possibly secondary to anemia of chronic disease/advanced CKD: Anemia of chronic disease: Stool noted to be stressed heme positive Patient received 1 unit of PRBC transfusion on 11/06/2019-for hemoglobin 8.8 Post transfusion hemoglobin remained stable 9.9 Patient's underlying history of coronary artery disease Cardiology: Transfusion recommended as needed to keep hemoglobin near 10 Acute CHF with diastolic heart failure(HFpEF) Echo: On 09/29/2019: EF 60-65% with concentric LVF, moderate aortic sclerosis without stenosis with mild aortic insufficiency and grade 1 diastolic dysfunction Presented with evidence of volume overload pulmonary vascular congestion/hypoxemia Treated with IV Lasix 40 mg twice daily with adequate diuresis Appreciate input from cardiology, echocardiogram: Showed preserved LV systolic function with normal wall motion Lasix has been kept on hold secondary to acute renal failure Troponin elevation: Doubt due to acute coronary event/coronary thrombus Possible elevated troponin secondary to type II non-ST elevated RI/cardiac ischemia secondary to decompensated CHF, hypoxemia, hypertensive urgency Bedside echo: Showed preserved LV systolic function with normal wall motion, no evidence of ACS Cardiology input appreciated-no further cardiac work-up needed Recommends continued with outpatient cardiac meds aspirin Plavix [id number] p.o. medication has been kept on hold for risk of aspiration, History of C. difficile colitis: No complaint of abdominal pain, no diarrhea Patient is on contact isolation for history of MRSA and C. difficile colitis Repeat C. difficile assay : Negative CODE STATUS: DNI/DO NOT INTUBATE DVT prophylaxis: Disposition: Patient's prognosis remains guarded, Continue to monitor in PCU/telemetry, Admission and Anticipated Discharge Date Admission Date: November 04, 2019 Subjective Patient seen in room 236/1 More awake today, eyes are open, remains nonverbal, noncommunicative, unable to follow any direction Noted to have a low-grade fever, nonproductive cough Patient was found to be influenza A positive overnight, Started on Tamiflu, Unable to give any dose as patient remains high aspiration risk, nursing reports of patient gagging, coughing with attempt of oral care We will ask pharmacy for parenteral dosing of Tamiflu if possible Review of Systems Review of Systems: Unobtainable due to mental health condition (Nonverbal, unable to follow direction, unable to communicate) Physical Exam Constitutional: WD/WN, vitals as above + ill appearing Eyes: + anicteric sclerae ENMT: Nose: + dry nasal mucous membranes (Does not open mouth, not allowing oral care) Respiratory: + cough Auscultation: + rales Cardiovascular: Rate/Rhythm: regular rate and regular rhythm Vessels: no JVD Extremities: + pedal edema Gastrointestinal (Abdomen): Percussion/Palpation: abdomen nontender Neurologic: Unable to assess any focal deficit, no visual facial droop, patient keeps both of the upper arm protracted and spastic Psychiatric: Orientation: + not oriented x 3 (Confused, noncommunicative,) Speech: + mute Affect: + anxious affect Results & Data ([facility]) Vital Signs (Past 12 Hours) Vital Signs Temp Pulse Pulse Pulse Resp BP BP 11/10/19 14:03 37.1 C 78 20 182/67 H 11/10/19 14:00 80 11/10/19 11:38 91 H 187/82 H 11/10/19 11:28 37.4 C 91 H 20 187/82 H 11/10/19 09:05 77 188/70 H 11/10/19 08:00 74 11/10/19 07:28 37.5 C 11/10/19 07:00 37.0 C 77 16 189/73 H 11/10/19 06:03 75 197/75 H Pulse Ox 11/10/19 14:03 93 11/10/19 14:00 11/10/19 11:38 11/10/19 11:28 94 11/10/19 09:05 11/10/19 08:00 11/10/19 07:28 11/10/19 07:00 92 11/10/19 06:03
[2019-11-10] MEDS ORDERED: VANCOMYCIN CONSULT ACTIVE PRN (17:12)
--- NOTE | 2019-11-10 17:26 | Pharmacy Report ---
Pharmacy Abx Dose Short Note - Date of Service November 10, 2019 - Assessment & Plan Assessment 74 year old F receiving Vancomycin for treatment of possible meningitis Day # 1 of antimicrobial therapy. Received phone call from provider to initiate Vancomycin/Rocephin/Ampicillin for possible meningitis. Plan * Sent Vancomycin load 1500 mg x1 (25.6 mg/kg) * CrCl 18.2 mg/dL; Nathen 0.020 hr-1; Est. T 1/2 ~ 35 hrs * Ordered random vanco level for 25 AM Patient ordered Rocephin 2gm IV q12h and Ampicillin 2gm IV q6h (adjusted due to renal impairment) Pharmacy will continue to follow and will adjust dose/frequency as necessary. Thank you.
[2019-11-10] MEDS ORDERED: VANCOMYCIN HCL 1,500 MG in SODIUM CHLORIDE 0.9% 500 ML IV SCH (17:30)
--- NOTE | 2019-11-10 17:45 | Hospitalist Progress Note ---
Date of Service November 10, 2019 Assessment & Plan Admission and Anticipated Discharge Date Admission Date: November 04, 2019 Subjective ATTENDING ADDENDUM ' pt continued to spike temp Tmax 37.8 ordered for IV tylenol d/w neurology , given fever , altered mental status , need to r/o meningitis although clinically pt does not show evidence of neck stiffness Abx changed to IV rocephine ( meningitic dose ) , IV vancomycin , IV Ampicillin IV Cefepime D/ken repeat blood culture ordered if not clinical improvement will consult radiology for fluro guided lumber puncture tomorrow EEG will be ordered by neuro to r/o Seizure as work up for alerted mental status Kay Brown MD Results & Data ([facility]) Vital Signs (Past 12 Hours) Vital Signs Temp Pulse Pulse Pulse Resp BP BP 11/10/19 16:03 36.8 C 78 20 179/66 H 11/10/19 14:03 37.1 C 78 20 182/67 H 11/10/19 14:00 80 11/10/19 11:38 91 H 187/82 H 11/10/19 11:28 37.4 C 91 H 20 187/82 H 11/10/19 09:05 77 188/70 H 11/10/19 08:00 74 11/10/19 07:28 37.5 C 11/10/19 07:00 37.0 C 77 16 189/73 H 11/10/19 06:03 75 197/75 H Pulse Ox 11/10/19 16:03 96 11/10/19 14:03 93 11/10/19 14:00 11/10/19 11:38 11/10/19 11:28 94 11/10/19 09:05 11/10/19 08:00 11/10/19 07:28 11/10/19 07:00 92 11/10/19 06:03
[2019-11-10 17:52] LABS: BUN Creatinine Ratio 18.5 (10-20); Calcium 8.5 mg/dl (8.5-10.1); Creatinine Clr Calc Pharmacy 19.4 ml/min; Est GFR (African American) 23.3; Est GFR (Non-African American) 20.1; Potassium 3.8 mmol/L (3.5-5.1)
[2019-11-10] MEDS: AMPICILLIN 2,000 MG in SODIUM CHLOR 0.9% AD-VAN 100 ML IV SCH (18:00)
[2019-11-10] MEDS: cefTRIAXone SODIUM 2,000 MG in DEXTROSE 5% 50 ML IV SCH (18:33)
--- NOTE | 2019-11-10 21:49 | Ultrasound Report ---
BILATERAL LOWER EXTREMITY VENOUS DOPPLER CLINICAL HISTORY: leg edema /rule out dvt COMPARISON STUDY: Left lower extremity venous Doppler ultrasound October 10, 2019. Right lower extre mity venous Doppler ultrasound September 30, 2019. TECHNIQUE: Sonography of the deep venous system of the bilateral lower extremities was performed. Co mpression and augmentation were evaluated. FINDINGS: The bilateral common femoral, superficial femoral and popliteal veins were compressible. A ugmentation was normal. Flow was shown within the deep calf vessels. IMPRESSION: No evidence of deep venous thrombus within the bilateral lower extremities. ACT 112: Negative or not required by law. Electronically signed by: Mekhi Alarcon M.D. 11/10/2019 9:48 PM
[2019-11-11] MEDS: METOPROLOL TARTRATE 1 MG/ML VIAL IV SCH ×4 (00:14→17:46)
[2019-11-11] MEDS: CHECK CLONIDINE PATCH PLACEMENT SCH ×3 (00:15→16:13)
[2019-11-11] MEDS: NITROGLYCERIN 2% OINTMENT 30GM TUBE EXT SCH ×4 (00:15→17:47)
[2019-11-11] MEDS: ACETAMINOPHEN 1,000 MG/100 ML VIAL IV PRN (00:19)
[2019-11-11] MEDS: AMPICILLIN 2,000 MG in SODIUM CHLOR 0.9% AD-VAN 100 ML IV SCH ×3 (01:06→14:46)
[2019-11-11] MEDS: cefTRIAXone SODIUM 2,000 MG in DEXTROSE 5% 50 ML IV SCH ×2 (05:03→18:09)
[2019-11-11] MEDS: HydrALAZINE HCL 20 MG/ML VIAL IV SCH ×4 (06:00→22:44)
[2019-11-11 06:30] LABS: Basophils # (auto) 0.04 K/uL (0-0.2); Basophils % (auto) 0.4 %; Eosinophils # (auto) 0.49 K/uL (0-0.5); Eosinophils % (auto) 4.6 %; Hemoglobin 9.4 g/dL (12.0-16.0); Immature Granulocytes # (auto) 0.18 K/uL (0.00-0.02); Immature Granulocytes % (auto) 1.7 %; Lymphocytes # (auto) 3.27 K/uL (1.2-3.4); Lymphocytes % (auto) 30.4 %; Mean Corpuscular Hgb Conc 32.4 g/dL (32-36); Mean Corpuscular Volume 89.5 fL (80-100); Mean Platelet Volume 9.3 fL (7.4-10.4); Monocytes # (auto) 1.82 K/uL (0.11-0.59); Monocytes % (auto) 16.9 %; Neutrophils # (auto) 4.94 K/uL (1.4-6.5); Platelet Count 461 K/uL (130-400); RDW Coefficient of Variation 18.3 % (11.5-14.5); RDW Standard Deviation 59.8 fL (36.4-46.3); Red Blood Count 3.24 M/uL (4.2-5.4); White Blood Count 10.74 K/uL (4.8-10.8)
[2019-11-11 06:43] LABS: INR 1.2 (0.9-1.1); Prothrombin Time 12.2 Seconds (9.0-12.0)
[2019-11-11 07:07] LABS: Albumin Level 1.6 gm/dl (3.4-5.0); BUN Creatinine Ratio 17.7 (10-20); Bilirubin Direct 0.2 mg/dl (0-0.2); Creatinine Clr Calc Pharmacy 20.8 ml/min; Est GFR (African American) 25.6
[2019-11-11 07:09] LABS: Bilirubin,Total 0.6 mg/dl (0.2-1); Total Protein 6.5 gm/dl (6.4-8.2)
[2019-11-11] MEDS ORDERED: TPN/PPN CONSULT PHARMACY PRN (09:41)
[2019-11-11 09:45] LABS: Magnesium 1.8 mg/dl (1.8-2.4)
[2019-11-11] MEDS: OSELTAMIVIR PHOSPHATE SUSP 30 MG/5 ML UDP PO SCH ×3 (09:50→12:39)
[2019-11-11] MEDS: POTASSIUM CHLORIDE 40 MEQ in DEXTROSE 5% 1,000 ML IV SCH ×2 (09:50→18:08)
--- NOTE | 2019-11-11 09:57 | Hospitalist Progress Note ---
Date of Service November 11, 2019 Assessment & Plan Admission and Anticipated Discharge Date Admission Date: November 04, 2019 Subjective Attending addendum: Patient remained afebrile since 3 PM last night 11/10/2019: Temp was 37.7 No improvement of mental status, bedside dysphagia screen showed high risk of aspiration, Update received from nutrition: Patient has been n.p.o. for more than 3 days for change mental status, Had poor p.o. intake since her admission-inadequate nutrition for more than 7 days Patient is already showing sign of dehydration, nutritional deficiency electrolyte imbalance Started with IV fluid D5 with potassium by nephrology yesterday Given altered mental status, placement of an NG tube will be difficult, also high risk of patient pulling NG tube out- We will start patient on PPN, ordered for ultrasound-guided peripheral line Order to check mag and phos level Daily labs: CMP, mag and phosphate will be continued to be checked and replaced for concern of refeeding syndrome. Appreciate input from dietary/nutrition Pharmacy consulted for PPN Lab reviewed: INR 1.2-possible secondary to nutritional deficiency?, LFTs, borderline elevated, could not cause coagulopathy Not a candidate for lumbar puncture/high risk for epidural hematoma/bleeding- will lead to catastrophic neurological consequences Also patient has been afebrile, no leukocytosis, clinical picture does not support active meningitis -Patient already started with IV Rocephin meningitic dose, vancomycin, ampicillin Repeat blood cultures ordered yesterday, will follow result Infectious disease will be consulted Patient's overall prognosis remains guarded Hypertensive urgency SBP: In 180 persistently Increased IV hydralazine 20 mg 4 times daily scheduled And scheduled dose of beta-danielle, Nitropaste, clonidine patch On PRN IV labetalol Continue to monitor in telemetry Kay Brown MD Results & Data ([facility]) Vital Signs (Past 12 Hours) Vital Signs Temp Pulse Pulse Resp BP BP Pulse Ox 11/11/19 07:58 37.2 C 78 22 186/84 H 22 L 11/11/19 06:00 78 11/11/19 03:51 36.7 C 75 17 180/74 H 97 11/11/19 00:14 85 176/71 H 11/11/19 00:00 79 11/10/19 23:36 37.4 C 87 19 176/71 H 96
[2019-11-11] MEDS ORDERED: POTASSIUM PHOSPHATE 15 MMOL in SODIUM CHLORIDE 0.9% 250 ML IV ONE (10:30)
--- NOTE | 2019-11-11 14:10 | Neurology Progress Note ---
Date of Service November 11, 2019 Assessment & Plan (1) Encephalopathy: 1. family in hospital but not currently in room 2. correct lyte abnormalities 3. CHF and infiltrates continue to monitor and treat 4. dementia /delirium? in setting of infection? 5. continue aspirin 81 mg daily once able to tolerate orals 6. HTN- slowly correct 7. PT/OT for discharge needs 8. nutrition - would continue thiamine and swallowing study 9. EEG- r/o subclinical seizure- pending read 10. may need to xray L hand/wrist and LLE due to pain with palpation (2) Hypertension: (3) History of CVA (cerebrovascular accident): Admission and Anticipated Discharge Date Admission Date: November 04, 2019 Supervising Physician Co-Signing Physician Notes I have seen and discussed above patient with Dr Gypsy Vogel, neurology Subjective Lisa is a 74 year old female with a PMH- anemia chronic disease, CHF, C. difficile colitis, hemorrhagic shock, GERD, hypertension, lupus, history of CVA, CKD stage IV and Carolis disease. She presented to [facility] with severe abdominal pain, nausea, dry heaving, and shortness of breath. Her CXR suggestive of right upper lobe pneumonia, for which she received vancomycin IV, cefepime IV and levofloxacin IV. EKG showed suggested ST depressions/ischemia in leads II, III and aVF and leads V4 through V6, and troponin which was initially 0.062 had a mild increase to 0.086. She was also found to be hypoxic, with pulse ox 82% on room air, and was placed on Vapotherm with improvement to 92%. She was found to be mildly anemic with a hemoglobin of 7.7-8.3 range, and was being transfused 1 unit PRBCs. She is awake and speaking today and oriented to self place and date. She states she had a bad fall in her bathroom and she hurt her leg and arm. denies CP, SOB, abdominal pain, N, V, +cough and complaints of left leg pain Physical Exam Physical Exam: Gen: awake pupils equal reactive lungs course breath sounds CV RRR abdomen mildly tender multiple bruises UE/LE pain with palpation of left leg. down going toes oriented to [employer], 2019, president Antionette flattening of nasolabial fold -left pronator drift on left Results & Data ([facility]) Vital Signs (Past 12 Hours) Vital Signs Temp Pulse Pulse Resp BP BP Pulse Ox 11/11/19 13:56 71 186/70 H 11/11/19 12:32 81 206/97 H 11/11/19 11:07 74 207/82 H 11/11/19 11:00 36.9 C 74 18 207/82 H 98 11/11/19 07:58 37.2 C 78 22 186/84 H 22 L 11/11/19 06:00 78 11/11/19 03:51 36.7 C 75 17 180/74 H 97 Laboratory Results Abnormal lab results 11/10/19 11/10/19 11/11/19 Range/Units 16:34 20:41 06:15 RBC (4.2-5.4) M/uL Hgb (12.0-16.0) g/dL Hct (37-47) % RDW Std Deviation (36.4-46.3) fL RDW Coeff of Aurelia (11.5-14.5) % Plt Count (130-400) K/uL Immature Gran # (Auto) (0.00-0.02) K/uL [place] # (Auto) (0.11-0.59) K/uL PT (9.0-12.0) Seconds INR (0.9-1.1) Sodium 146 H (136-145) mmol/L Chloride 117 H 115 H (98-107) mmol/L BUN 42 H 37 H (7-18) mg/dl Creatinine 2.29 H 2.12 H (0.6-1.2) mg/dl Glucose 126 H 114 H (70-99) mg/dl POC Glucose 112 H (70-99) mg/dl Calcium 8.0 L (8.5-10.1) mg/dl Phosphorus (2.5-4.9) mg/dl AST 77 H (15-37) U/L Alkaline Phosphatase 207 H (45-117) U/L Albumin 1.6 L (3.4-5.0) gm/dl 11/11/19 11/11/19 11/11/19 Range/Units 06:15 06:15 06:15 RBC 3.24 L (4.2-5.4) M/uL Hgb 9.4 L (12.0-16.0) g/dL Hct 29.0 L (37-47) % RDW Std Deviation 59.8 H (36.4-46.3) fL RDW Coeff of Aurelia 18.3 H (11.5-14.5) % Plt Count 461 H (130-400) K/uL Immature Gran # (Auto) 0.18 H (0.00-0.02) K/uL [place] # (Auto) 1.82 H (0.11-0.59) K/uL PT 12.2 H (9.0-12.0) Seconds INR 1.2 H (0.9-1.1) Sodium (136-145) mmol/L Chloride (98-107) mmol/L BUN (7-18) mg/dl Creatinine (0.6-1.2) mg/dl Glucose (70-99) mg/dl POC Glucose (70-99) mg/dl Calcium (8.5-10.1) mg/dl Phosphorus 2.0 L (2.5-4.9) mg/dl AST (15-37) U/L Alkaline Phosphatase (45-117) U/L Albumin (3.4-5.0) gm/dl Diagnostic Findings EEG pending read (1) Hypertension Hypertension type: essential hypertension Qualified Code(s): I10 - Essential (primary) hypertension
[2019-11-11] MEDS ORDERED: ACETAMINOPHEN SOLN 650 MG/20.3 ML UDC PO PRN (14:54)
[2019-11-11] MEDS ORDERED: ONDANSETRON 4 MG OD TAB PO PRN (14:55)
--- NOTE | 2019-11-11 15:24 | Pharmacy Report ---
Pharmacy Abx Dose Short Note - Date of Service November 11, 2019 - Assessment & Plan Assessment Patient received a loading dose of Vancomycin 1500 mg IV yesterday at 1730. Random level drawn with AM labs today was 28.8. Renal function has improved today compared to yesterday but Scr still elevated. Crcl = 20.8. Patient continues to received Rocephin 2 gm IV Q12h. Plan Vancomycin * Random level = 28.8 is supra-therapeutic. * Re-check random Vanc level tomorrow AM (11/12/19) with AM labs. * Goal trough level for Meningitis: 18 to 20 mcg/mL Pharmacy will continue to follow and will adjust dose/frequency as necessary. Thank you.
[2019-11-11] MEDS ORDERED: DEXTROSE 10% 1,000 ML IV PRN (16:00)
[2019-11-11] MEDS ORDERED: [UNRECOGNIZED DRUG - REMARK] ONE (16:00)
[2019-11-11] MEDS ORDERED: [UNRECOGNIZED DRUG - MIXTURE] IV SCH (16:00)
[2019-11-11] MEDS: LABETALOL HCL IV 5 MG/ML 20ML IV PRN (16:13)
[2019-11-11] MEDS ORDERED: FUROSEMIDE 20 MG in SYRINGE 0 ML IV ONE (18:00)
[2019-11-11] MEDS: DOXYCYCLINE HYCLATE 100 MG in DEXTROSE 5% 100 ML IV SCH (18:39)
--- NOTE | 2019-11-11 18:40 | XRay Report ---
XR KUB/Abdomen 1 view CLINICAL HISTORY: Feeding tube Placement COMPARISON STUDY: 11/10/2019 FINDINGS: There is no pathologic bowel dilatation. There are surgical clips within the right upper qu adrant consistent with a prior cholecystectomy. There are bilateral lower lung zone airspace opacitie s. There is been interval placement of a feeding tube, the tip of which projects over the gastric car olamide. IMPRESSION: 1. No evidence of pathologic bowel dilatation 2. Interval placement of a feeding tube, the tip of which projects over the gastric cardia ACT 112: Negative or not required by law. Electronically signed by: Uriah Tyler M.D. 11/11/2019 6:38 PM
--- NOTE | 2019-11-11 18:55 | Hospitalist Progress Note ---
Date of Service November 11, 2019 Assessment & Plan (1) Acute hypoxemic respiratory failure: Influenza A positive: Noted to be positive influenza A Ordered for Tamiflu, Acute confusion:/Metabolic encephalopathy Status improved, patient found to be awake, alert, oriented to person, does not recall the past 2 days event Does recall that she got admitted to hospital with pneumonia No slurred speech dysarthria noted, Continues to have swallowing difficulty, Denies of meningitis, no indication for lumbar puncture, patient has been afebrile, mental stresses gradually improving We will DC Rocephin/ampicillin/Vanco for meningitis treatment, Continue IV Rocephin/doxycycline for bilateral pneumonia Acute renal failure on CKD stage IV: Appreciate input from nephrology, Possible ATN in the setting of infection, poor p.o. intake dehydration Fischer catheter placed, Will function improved with IV fluids, Patient failed bedside swallowing eval, ordered for NG tube placement will start tube feeding -daily BMP. Avoid nephrotoxins such as contrast - Hypernatremia: Solved after IV fluids Hypertension: Hypertensive urgency with SBP persistently elevated more than 180 Goal systolic of 150-160. -increased hydralazine to 20 mg q8 hr Outpatient oral BP meds has been kept on hold secondary to dysphasia, altered mental status Beta-danielle changed to IV Lopressor 5 mg every 6 hours, hydralazine changed to IV, Changed to p.o. clonidine to patch /on Nitropaste Continue on PRN labetalol Patient will need continued telemetry monitoring Blood in stool/positive stool Hemoccult/history of colon CA No melanotic stool noted, CT abdomen pelvis shows no evidence of obstruction, no acute GI pathology, H&H been stable Resume subcu heparin increased risk for DVT Acute hypoxemic respiratory failure: Respiratory status improving gradually with continued diuresis and antibiotic treatment Possible combination of decompensated CHF with diastolic dysfunction(HFpEF)/community-acquired pneumonia: Patient was hypoxic in [facility] Patient required BiPAP Respiratory status improved with supportive care, nebulizer treatment antibiotic for pneumonia(on cefepime/vancomycin) Anemia: Possibly secondary to anemia of chronic disease/advanced CKD: Anemia of chronic disease: Stool noted to be stressed heme positive Patient received 1 unit of PRBC transfusion on 11/06/2019-for hemoglobin 8.8 Post transfusion hemoglobin remained stable 9.9 Aspirin will be resumed via NG tube Patient's underlying history of coronary artery disease Cardiology: Transfusion recommended as needed to keep hemoglobin near 10 Acute CHF with diastolic heart failure(HFpEF) Echo: On 09/29/2019: EF 60-65% with concentric LVF, moderate aortic sclerosis without stenosis with mild aortic insufficiency and grade 1 diastolic dysfunction Presented with evidence of volume overload pulmonary vascular congestion/hypoxemia Treated with IV Lasix 40 mg twice daily with adequate diuresis Appreciate input from cardiology, echocardiogram: Showed preserved LV systolic function with normal wall motion Lasix has been kept on hold secondary to acute renal failure Troponin elevation: Doubt due to acute coronary event/coronary thrombus Possible elevated troponin secondary to type II non-ST elevated PA/cardiac ischemia secondary to decompensated CHF, hypoxemia, hypertensive urgency Bedside echo: Showed preserved LV systolic function with normal wall motion, no evidence of ACS Cardiology input appreciated-no further cardiac work-up needed Recommends continued with outpatient cardiac meds aspirin Plavix [id number] p.o. medication has been kept on hold for risk of aspiration, History of C. difficile colitis: No complaint of abdominal pain, no diarrhea Patient is on contact isolation for history of MRSA and C. difficile colitis Repeat C. difficile assay : Negative Nutrition: Patient has been n.p.o. for past several days, for altered mental status Appreciate input from nutrition Coresef /NG placement ordered, will start tube feeding, all patient's oral medication can be started 5 tube feeding CODE STATUS: DNI/DO NOT INTUBATE DVT prophylaxis: Moderate to high risk Subcu heparin lower extremity Doppler negative for DVT Disposition: Continue to monitor in PCU/telemetry, Admission and Anticipated Discharge Date Admission Date: November 04, 2019 Subjective Patient is awake alert and oriented today, Complicating, able to answer questions, follow command, remains very weak and lethargic Afebrile, Speech evaluation requested , patient noted to so evidence of dashawn aspiration Order for NG tube to be inserted for nutrition supplement, medication administration No evidence of meningitis, will DC vancomycin, ampicillin, continue Rocephin for bilateral pneumonia Patient's daughter present at bedside, updated Review of Systems Constitutional: + fatigue and + weakness; no fever and no chills Respiratory: + cough Cardiovascular: + edema; no chest pain, no dyspnea, no orthopnea and no lightheadedness Physical Exam Constitutional: WD/WN, vitals as above + ill appearing Eyes: PERRL, conjunctivae normal, anicteric sclerae + anicteric sclerae ENMT: external ear and nose normal, oropharynx normal Neck: trachea midline, no thyromegaly Cardiovascular: Rate/Rhythm: regular rate and regular rhythm Vessels: no JVD Extremities: + pedal edema Gastrointestinal (Abdomen): Inspection/Auscultation: normal bowel sounds Percussion/Palpation: abdomen nontender Musculoskeletal: no cyanosis or clubbing, extremities motor strength 5/5 Skin: no rashes, warm and dry Neurologic: PERRL, EOMI, accommodation nl, no face palsy, no dysarthria Psychiatric: Orientation: alert, oriented to person and oriented to place Results & Data ([facility]) Vital Signs (Past 12 Hours) Vital Signs Temp Pulse Pulse Resp BP BP Pulse Ox 11/11/19 17:46 69 174/74 H 11/11/19 17:45 69 174/74 H 11/11/19 16:10 70 183/74 H 11/11/19 15:10 96 11/11/19 13:56 71 186/70 H 11/11/19 12:32 81 206/97 H 11/11/19 11:07 74 207/82 H 11/11/19 11:00 36.9 C 74 18 207/82 H 98 11/11/19 07:58 37.2 C 78 22 186/84 H 22 L
--- NOTE | 2019-11-11 19:34 | Hospitalist Progress Note ---
Date of Service November 11, 2019 Assessment & Plan Admission and Anticipated Discharge Date Admission Date: November 04, 2019 Subjective ATTENDING ADDENDUM: Corsef placed , pt tolerated well Cxray /KUB ordered for positioning appreciate input from Nutrition : pt started on TF : Fibersource HN @ 15 ml /hr , advance slowly 10 ml /4 hrs to goal 55 ml /hr Free water flush 125 ml q 6hrs keep HOB elevated 45 degree to prevent aspiration while getting TF PO meds : Aspirin , Plavix, statin , Beta danielle , norvasc ordered to resume via Korcef pts family present at bedside , update given Kay Brown MD Results & Data ([facility]) Vital Signs (Past 12 Hours) Vital Signs Temp Pulse Pulse Resp BP BP Pulse Ox 11/11/19 17:46 69 174/74 H 11/11/19 17:45 69 174/74 H 11/11/19 16:10 70 183/74 H 11/11/19 15:10 96 11/11/19 13:56 71 186/70 H 11/11/19 12:32 81 206/97 H 11/11/19 11:07 74 207/82 H 11/11/19 11:00 36.9 C 74 18 207/82 H 98 11/11/19 07:58 37.2 C 78 22 186/84 H 22 L
[2019-11-11] MEDS: AMLODIPINE BESYLATE 5 MG TAB PO SCH (20:12)
--- NOTE | 2019-11-11 20:12 | XRay Report ---
XR chest 1V portable CLINICAL HISTORY: Feeding tube placement /pneumonia COMPARISON STUDY: 11/10/2019 FINDINGS: There has been interval placement of a feeding tube which passes into the stomach. The hear t is borderline enlarged. There is mild improvement in the relatively diffuse bilateral pulmonary air space opacities.[Trace effusions are suspected. IMPRESSION: 1. Slight improvement in the bilateral pulmonary airspace opacities 2. Interval placement of a feeding tube which passes into the stomach ACT 112: Negative or not required by law. Electronically signed by: Uriah Tyler M.D. 11/11/2019 8:10 PM
[2019-11-11] MEDS: METOPROLOL TARTRATE 50 MG TAB PO SCH (20:13)
--- NOTE | 2019-11-11 20:13 | XRay Report ---
XR KUB/Abdomen 1 view CLINICAL HISTORY: Feeding tube repositioning COMPARISON STUDY: Earlier in the day FINDINGS: The feeding tube has been advanced, and now projects over the gastric body. IMPRESSION: The feeding tube is positioned within the stomach. ACT 112: Negative or not required by law. Electronically signed by: Uriha Tyler M.D. 11/11/2019 8:11 PM
--- NOTE | 2019-11-11 21:12 | Nephrology Progress Note ---
Date of Service November 11, 2019 Assessment & Plan (1) Acute kidney injury superimposed on CKD: Patient with acute kidney injury on CKD. Baseline creatinine of 1.8-2. Her creatinine is today 2.1, slow and continued improvement . Etiology of worsening renal function likely ischemic ATN in setting of recent pneumonia, influenza. Management of ATN is supportive. -cont gray one more day - -daily BMP. Avoid nephrotoxins such as contrast -changed fluids to D5 with 40 mEq of potassium at 125 mL/h continuous (2) Hypertension: Blood pressure is above target but given encephalopathy and question of CVA, would avoid lowering the blood pressure too much. Goal systolic of 150- 160. -continue lopressor, IV hydralazine, clonidine patch, amlodipine>several of these are PO however and pt currently strict NPO -- reassess swallow status in am -continue prn labetalol (3) Encephalopathy: Likely metabolic encephalopathy in setting of infection. started empiric abtx for bacterial meningitis 11/10. This likely uremia given BUN of only 54 in a patient with chronic CKD stage IV. Avoid opioids or psychoactive medications. >>report from hospitalist pt made sudden and dramatic recovery in [place] (4) Hypokalemia: Patient had ongoing hypokalemia and had required frequent K riders and other aggressive K resuscitation. Had K rich fluids through day to day and d/c'd at 1800. agree w/ plan -recheck bmp in am (5) Hypernatremia: Na 149 w/ hyperchloremia, hypokalemia on 11/10 >> improved w/ hypotonic K rich fluids at aggressive rate. chemistries better and IVF d/c'd this evening reasonably -repeat bmp in am Admission and Anticipated Discharge Date Admission Date: November 04, 2019 Subjective seen on rounds this am at about 0915; care reviewed w/ Dr Brown shortly thereafter Review of Systems Review of Systems: Unobtainable due to reduced consciousness Physical Exam Constitutional: well developed and + frail appearing; no acute distress (si tting up in bed on 02nc) Eyes: EOM intact bilaterally ENMT: Ears: no external ear abnormality Nose: no external nose abnormality Mouth: + dry oral mucous membranes Neck: no nuchal rigidity Respiratory: normal respiratory effort; no respiratory distress and no cough Auscultation: + diminished lung sounds (on anterior exam) Cardiovascular: Rate/Rhythm: regular rate and regular rhythm Heart Sounds: + murmur Extremities: no edema Gastrointestinal (Abdomen): Inspection/Auscultation: normal bowel sounds Percussion/Palpation: + abdomen tender (grimaces w/ moderate or mild palpation BLUQ and epigastrium) and abdomen soft Musculoskeletal: Extremities: strength 5/5 throughout Skin: no rashes, warm and dry (except some petechiae/patches forearmL) Neurologic: Speech / Cognition: + abnormal speech (no words, does make sounds) alert, tracks Genitourinary: gray w/ ample light yellow urine Results & Data ([facility]) Vital Signs (Past 12 Hours) Vital Signs Temp Pulse Pulse Resp BP BP Pulse Ox 11/11/19 20:00 36.5 C 82 16 174/83 H 92 11/11/19 17:46 69 174/74 H 11/11/19 17:45 69 174/74 H 11/11/19 16:10 70 183/74 H 11/11/19 15:10 96 11/11/19 13:56 71 186/70 H 11/11/19 12:32 81 206/97 H 11/11/19 11:07 74 207/82 H 11/11/19 11:00 36.9 C 74 18 207/82 H 98 Laboratory Results 11/11/19 06:15 11/11/19 06:15 (1) Hypertension Hypertension type: essential hypertension Qualified Code(s): I10 - Essential (primary) hypertension
[2019-11-11] MEDS: HEPARIN SOD 5,000 UNIT/0.5 ML VIAL SQ SCH (22:56)
[2019-11-12] MEDS: CHECK CLONIDINE PATCH PLACEMENT SCH ×4 (00:48→23:31)
[2019-11-12] MEDS: NITROGLYCERIN 2% OINTMENT 30GM TUBE EXT SCH ×5 (00:49→23:32)
[2019-11-12] MEDS: HEPARIN SOD 5,000 UNIT/0.5 ML VIAL SQ SCH ×3 (06:42→20:29)
[2019-11-12] MEDS: FIBERSOURCE HN 1.2 CAL 1000 ML BAG PO SCH ×2 (06:42→09:04)
[2019-11-12] MEDS: TUBE FEEDING WATER FLUSH GT SCH ×6 (06:42→23:32)
[2019-11-12] MEDS: DOXYCYCLINE HYCLATE 100 MG in DEXTROSE 5% 100 ML IV SCH ×2 (06:43→17:34)
[2019-11-12 07:37] LABS: Albumin Level 1.7 gm/dl (3.4-5.0); BUN Creatinine Ratio 18.1 (10-20); Est GFR (African American) 25.8; Est GFR (Non-African American) 22.3; Magnesium 1.8 mg/dl (1.8-2.4); Potassium 3.8 mmol/L (3.5-5.1)
[2019-11-12] MEDS: LABETALOL HCL IV 5 MG/ML 20ML IV PRN (07:41)
[2019-11-12 07:46] LABS: Albumin Globulin Ratio 0.3 (0.9-2); Bilirubin,Total 0.5 mg/dl (0.2-1); Phosphorus 3.6 mg/dl (2.5-4.9); Total Protein 6.7 gm/dl (6.4-8.2)
[2019-11-12] MEDS: HydrALAZINE HCL 20 MG/ML VIAL IV SCH (08:16)
[2019-11-12] MEDS ORDERED: HydrALAZINE HCL 20 MG/ML VIAL IV PRN (08:43)
[2019-11-12] MEDS: METOPROLOL TARTRATE 50 MG TAB PO SCH ×2 (08:54→20:29)
[2019-11-12] MEDS: FAMOTIDINE 20 MG TAB PO SCH (08:54)
[2019-11-12] MEDS: HydrALAZINE TAB 50 MG TAB PO SCH ×4 (08:54→20:29)
[2019-11-12] MEDS: ATORVASTATIN 40 MG TAB PO SCH (08:54)
[2019-11-12] MEDS: CLOPIDOGREL BISULFATE 75 MG TAB PO SCH (08:54)
[2019-11-12] MEDS: AMLODIPINE BESYLATE 5 MG TAB PO SCH (08:54)
[2019-11-12] MEDS ORDERED: ASPIRIN 81 MG ECTAB PO SCH (09:00)
[2019-11-12] MEDS ORDERED: SERTRALINE HCL 50 MG TABLET PO SCH (09:00)
[2019-11-12] MEDS: cefTRIAXone SODIUM 2,000 MG in DEXTROSE 5% 50 ML IV SCH (09:06)
[2019-11-12] MEDS: ASPIRIN 81 MG CHEW PO SCH (09:06)
[2019-11-12] MEDS: LACTOBACILLUS ACIDOPHILUS (FLORANEX) TAB PO SCH ×2 (12:07→17:07)
[2019-11-12] MEDS: OSELTAMIVIR PHOSPHATE SUSP 30 MG/5 ML UDP PO SCH (13:33)
--- NOTE | 2019-11-12 15:00 | Communication Note ---
Date of Service: November 12, 2019 EEG - no seizure focus, global slowing Report has been updated and suggest possible spikes in the region of patient's prior right MCA stroke. We have recommended that the EEG be repeated for evaluation of ongoing epileptogenicity. We will see the patient thereafter. Gypsyivan Nazario communicated this information to the patient's daughter and Dr. Mccoy today 2019. MICKI Vogel MD
--- NOTE | 2019-11-12 20:48 | Hospitalist Progress Note ---
Date of Service November 12, 2019 Assessment & Plan (1) Acute hypoxemic respiratory failure: 2/2 Flu A and bilateral pneumonia. Continues on Tamiflu and Rocephin/Doxy IV. Hypoxia has resolved and she is doing well clinically. Recommend repeat CXR as outpatient in 4 weeks to ensure complete resolution of pneumonia. (2) Pneumonia: Consider transition to PO antibiotics in am. Keeping IV for now to minimize pill burden with the NGT just out. (3) Influenza A: tamiflu, renal dosage, for 5 days. (4) Metabolic encephalopathy: resolved (5) Acute kidney injury superimposed on chronic kidney disease: Likely related to ATN after insult from pneumonia and flu per nephrology. Around her baseline, holding lasix. BMP in am. (6) Elevated LFTs: uncertain cause, ?tube feeds which have now stopped. She was on PPN for a few days, also. Trend in am. Liver US ordered. (7) HTN (hypertension): Uncontrolled, may have some rebound HTN after temporarily being off her clonidine. Cont taking home medications including Norvasc 10, clonidine 0.1 BID (stopped weekly patch that was being given). Cont PRN hydralazine. Low salt diet. (8) Anemia: Likely multifactorial including chronic disease, CKD Stage IV and frequent phlebotomy over multiple hospitalizations reported in the past couple of months. No transfusion indicated at this time. (9) Acute diastolic heart failure: Initially was fluid overloaded. Lasix on hold for now. Examines as euvolemic. (10) Encephalopathy: acute metabolic encephalopathy-resolved. Will remove NGT at this time as she was starting to swallow well today. Speech path is following. (11) CKD (chronic kidney disease), stage IV: At baseline, renally dose meds as appropriate. (12) Malnutrition: was given enteral feedings while unresponsive for a couple of days. Appreciate nutrition recs. As CorSafe is out, tube feeds have been stopped. Appreciate Nutrition recommendations. (13) Generalized weakness: may require rehab, cont with PT and OT. (14) DVT prophylaxis: Heparin Conditional Code Dispo-uncertain at this time. Maureen Mccoy DO [facility] [address] Hospitalist Admission and Anticipated Discharge Date Admission Date: November 04, 2019 Subjective feeling well EEG this am without epileptogenic focus CorSafe placed, however, she is alert and oriented. Denies other issues at this time. Daughter and RADHA at bedside. Review of Systems Review of Systems: All systems reviewed & are unremarkable except as noted in Subjective Physical Exam Physical Exam: CONSTITUTIONAL: thin, frail, vitals as above, generally well- appearing EYES: normal conjunctivae, no scleral icterus ENT: external ear and nose normal, MMM, CorSafe in place RESPIRATORY: clear to auscultation bilaterally, no crackles, rales or wheezes, normal respiratory effort CARDIOVASCULAR: regular rate and rhythm, 3/6 BRIGITTE heard across precordium, no gallops or rubs, no JVD, no peripheral edema GASTROINTESTINAL: soft, nontender, nondistended MUSCULOSKELETAL: moves all extremities equally, generalized weakness SKIN: warm and dry, some spotted ecchymosis on L distal arm NEUROLOGIC: No facial palsy, no dysarthria. CN 2-12 grossly intact, no sensory deficit, normal cognition, normal speech, no tremor, no gross focal deficits. PSYCHIATRIC: alert cooperative and oriented to person, place and time. Results & Data ([facility]) Vital Signs (Past 12 Hours) Vital Signs Temp Pulse Resp BP Pulse Ox 11/12/19 19:37 36.8 C 69 18 141/66 H 95 11/12/19 16:00 36.5 C 66 16 132/68 96 11/12/19 14:00 98 11/12/19 12:00 36.4 C L 61 18 123/60 98 11/12/19 08:55 162/68 H Laboratory Results [facility] 11/12/19 06:53 Sodium 143 Potassium 3.8 Chloride 112 H Carbon Dioxide 24 BUN 38 H Creatinine 2.10 H Glucose 94 Calcium 8.0 L Liver Function 11/12/19 Range/Units 06:53 Total Bilirubin 0.5 (0.2-1) mg/dl AST 74 H (15-37) U/L ALT 28 (12-78) U/L Alkaline Phosphatase 235 H (45-117) U/L Albumin 1.7 L (3.4-5.0) gm/dl Medications Administered Current Inpatient Medications Acetaminophen (Tylenol) 650 mg PO Q6 PRN PRN Reason: Pain Stop: 12/11/19 14:53 Albuterol (Duoneb) 3 ml NEB Q4R PRN PRN Reason: Shortness Of Breath Stop: 12/05/19 02:59 Amlodipine Besylate (Norvasc) 10 mg PO QAM REUBEN Stop: 12/11/19 19:29 Last Admin: 11/12/19 08:54 Dose: 10 mg Documented by: Aspirin ([facility]in Chew) [facility] Stop: 12/12/19 08:59 Last Admin: 11/12/19 09:06 Dose: 81 mg Documented by: Atorvastatin Calcium (Lipitor) 40 [facility] [place] Stop: 12/12/19 08:59 Last Admin: 11/12/19 08:54 Dose: 40 mg Documented by: Clonidine HCl (Qbyycqcz-Oku-0 0.1mg/24hr) 1 patch TD Ramirez@1200 [facility] Stop: 12/09/19 11:59 Last Admin: 11/09/19 11:11 Dose: 1 patch Documented by: Clopidogrel Bisulfate (Plavix) 75 [facility] [place] Stop: 12/05/19 08:59 Last Admin: 11/12/19 08:54 Dose: 75 mg Documented by: Cyanocobalamin (Vitamin B-12) 1,000 mcg [facility] [place] Stop: 12/05/19 08:59 Last Admin: 11/08/19 08:20 Dose: 1,000 mcg Documented by: Enteral Nutritional Formula (Fibersource Hn 1.2 Elbert Liquid) 1,000 ml PO DAILY [facility]; Protocol Stop: 12/12/19 04:59 Last Admin: 11/12/19 09:04 Dose: Not Given Documented by: Famotidine (Pepcid) 20 mg PO DAILY [facility] Stop: 12/06/19 08:59 Last Admin: 11/12/19 08:54 Dose: 20 mg Documented by: Furosemide (Lasix) 40 mg PO BID17 [facility] Stop: 12/07/19 16:59 Last Admin: 11/07/19 17:06 Dose: 40 mg Documented by: Heparin Sodium (Porcine) (Heparin Sodium (Porcine)) 5,000 units SQ Q8 [facility] Stop: 12/05/19 21:59 Last Admin: 11/12/19 20:29 Dose: 5,000 units Documented by: Hydralazine HCl (Apresoline) 50 mg PO QID [facility] Stop: 12/05/19 12:59 Last Admin: 11/12/19 20:29 Dose: 50 mg Documented by: Hydralazine HCl (Hydralazine Hcl) 10 mg IV Q8 PRN PRN Reason: sbp> 180 Stop: 12/12/19 08:42 Promethazine HCl 12.5 mg/ (Sodium Chloride) 50.5 mls @ 202 mls/hr IV Q6H PRN PRN Reason: Nausea And Vomiting Stop: 12/06/19 20:12 Last Infusion: 11/10/19 10:00 Dose: Infused Documented by: Ceftriaxone Sodium 2,000 mg/ (Dextrose) 70 mls @ 140 mls/hr IV DAILY [facility] Stop: 11/19/19 08:59 Last Infusion: 11/12/19 09:36 Dose: Infused Documented by: Doxycycline Hyclate 100 mg/ (Dextrose) 110 mls @ 50 mls/hr IV Q12H [facility] Stop: 11/18/19 17:59 Last Infusion: 11/12/19 20:18 Dose: Infused Documented by: Labetalol HCl (Normodyne) 10 mg IV Q4 PRN PRN Reason: Hypertension Stop: 12/05/19 12:32 Last Admin: 11/12/19 07:41 Dose: 10 mg Documented by: Lactobacillus Acidophilus (Floranex) 1 tab PO TIDM [facility] Stop: 12/05/19 07:59 Last Admin: 11/12/19 17:07 Dose: 1 tab Documented by: Metoprolol Tartrate (Lopressor) 50 mg PO BID [facility] Stop: 12/05/19 20:59 Last Admin: 11/12/19 20:29 Dose: 50 mg Documented by: Miscellaneous (Remove Clonidine Patch) 1 ea N/A Ramirez@1159 [facility] Stop: 12/16/19 11:58 Miscellaneous (Check Clonidine Patch) 1 ea N/A QS [facility] Stop: 12/09/19 15:59 Last Admin: 11/12/19 17:05 Dose: 1 ea Documented by: Nitroglycerin (Nitro-Bid 2%) 1 inch EXT Q6H [facility] Stop: 12/05/19 12:14 Last Admin: 11/12/19 17:35 Dose: 1 inch Documented by: Oseltamivir Phosphate (Tamiflu) 30 mg PO DAILY [facility]; Protocol Stop: 11/14/19 09:01 Last Admin: 11/12/19 13:33 Dose: 30 mg Documented by: Sterile Water (Tube Feeding Water Flush) 125 ea GT Q6 [facility] Stop: 12/11/19 19:44 Last Admin: 11/12/19 17:31 Dose: 125 ea Documented by: (1) Pneumonia Pneumonia type: due to unspecified organism Laterality: right Lung location: upper lobe of lung Qualified Code(s): J18.9 - Pneumonia, unspecified organism
--- NOTE | 2019-11-12 21:24 | Electroencephalogram ---
EEG Procedure Note Date of Service November 12, 2019 Start / End Times Start Time: 07:59 End Time: 08:19 Referring Physician Gypsy Nazario PA-C History A 74 year old woman with sub clinical seizures. EEG performed for evaluation of seizure. Home Medication List Home Medications Medication Instructions Recorded Confirmed Type aspirin 81 mg PO HS 08/19/18 11/05/19 History clopidogrel 75 mg PO QAM 08/19/18 11/05/19 History cyanocobalamin (vitamin B-12) 1,000 mcg PO QAM 08/19/18 11/05/19 History amlodipine 10 mg PO DAILY 08/30/19 11/05/19 History sertraline 50 mg PO DAILY 08/30/19 11/05/19 History Lactobacillus acidoph-L.bulgar 1 tab PO TIDM 10 Days #30 tab 10/01/19 11/05/19 Rx ondansetron HCl 4 mg PO Q8 PRN 10/10/19 11/05/19 History ranitidine HCl 150 mg PO BID 10/10/19 11/05/19 History clonidine HCl 0.1 mg PO BID 30 Days #60 tab 10/13/19 11/05/19 Rx metoprolol tartrate 25 mg PO BID 30 Days #60 tab 10/13/19 11/05/19 Rx hydralazine 25 mg PO TID 11/05/19 11/05/19 History vancomycin PO Q6 11/05/19 History Inpatient Medication List [facility] [place]: 12/11/19 19:29 Last Admin: 11/12/19 08:54 Dose: 10 mg Documented by: [id number] Admin: 11/11/19 20:12 Dose: 10 mg Documented by: [id number] Aspirin (Aspirin Chew) [facility] [place] Stop: 12/12/19 08:59 Last Admin: 11/12/19 09:06 Dose: 81 mg Documented by: [id number] Atorvastatin Calcium (Lipitor) [facility] [place] Stop: 12/12/19 08:59 Last Admin: 11/12/19 08:54 Dose: 40 mg Documented by: [id number] Clonidine HCl (Xjyruigc-Rgm-3 0.1mg/24hr) 1 patch TD Ramirez@1200 [facility] Stop: 12/09/19 11:59 Last Admin: 11/09/19 11:11 Dose: 1 patch Documented by: [id number] Clopidogrel Bisulfate (Plavix) 75 mg PO QAM [facility] Stop: 12/05/19 08:59 Last Admin: 11/12/19 08:54 Dose: 75 mg Documented by: [id number] Admin: 11/08/19 08:19 Dose: 75 mg Documented by: [id number] Admin: 11/07/19 08:40 Dose: 75 mg Documented by: [id number] Admin: 11/06/19 09:19 Dose: 75 mg Documented by: [id number] Admin: 11/05/19 08:34 Dose: 75 mg Documented by: [id number] Cyanocobalamin (Vitamin B-12) 1,000 mcg PO QAM [facility] Stop: 12/05/19 08:59 Last Admin: 11/08/19 08:20 Dose: 1,000 mcg Documented by: [id number] Admin: 11/07/19 08:40 Dose: 1,000 mcg Documented by: [id number] Admin: 11/06/19 09:20 Dose: 1,000 mcg Documented by: [id number] Admin: 11/05/19 08:35 Dose: 1,000 mcg Documented by: [id number] Enteral Nutritional Formula (Fibersource Hn 1.2 Elbert Liquid) 1,000 ml PO DAILY [facility]; Protocol Stop: 12/12/19 04:59 Last Admin: 11/12/19 09:04 Dose: Not Given Documented by: [id number] Admin: 11/12/19 06:42 Dose: 1,000 ml Documented by: [id number] Famotidine (Pepcid) 20 mg PO DAILY [facility] Stop: 12/06/19 08:59 Last Admin: 11/12/19 08:54 Dose: 20 mg Documented by: [id number] Admin: 11/08/19 08:20 Dose: 20 mg Documented by: [id number] Admin: 11/07/19 08:40 Dose: 20 mg Documented by: [id number] Admin: 11/06/19 09:20 Dose: 20 mg Documented by: [id number] Furosemide (Lasix) 40 mg PO BID17 [facility] Stop: 12/07/19 16:59 Last Admin: 11/07/19 17:06 Dose: 40 mg Documented by: [id number] Heparin Sodium (Porcine) (Heparin Sodium (Porcine)) 5,000 units SQ Q8 [facility] Stop: 12/05/19 21:59 Last Admin: 11/12/19 20:29 Dose: 5,000 units Documented by: [id number] Cosigned by: [id number] Admin: 11/12/19 13:13 Dose: 5,000 units Documented by: [id number] Cosigned by: [id number] Admin: 11/12/19 06:42 Dose: 5,000 units Documented by: [id number] Cosigned by: [id number] Admin: 11/11/19 22:56 Dose: 5,000 units Documented by: [id number] Cosigned by: [id number] Admin: 11/08/19 13:28 Dose: 5,000 units Documented by: [id number] Cosigned by: [id number] Admin: 11/08/19 06:03 Dose: 5,000 units Documented by: [id number] Cosigned by: [id number] Admin: 11/07/19 21:53 Dose: 5,000 units Documented by: [id number] Cosigned by: [id number] Admin: 11/07/19 14:18 Dose: 5,000 units Documented by: [id number] Cosigned by: [id number] Admin: 11/07/19 05:54 Dose: 5,000 units Documented by: [id number] Cosigned by: [id number] Admin: 11/06/19 20:35 Dose: 5,000 units Documented by: [id number] Cosigned by: [id number] Admin: 11/06/19 13:47 Dose: 5,000 units Documented by: [id number] Cosigned by: [id number] Admin: 11/06/19 05:47 Dose: 5,000 units Documented by: [id number] Cosigned by: [id number] Admin: 11/05/19 21:09 Dose: 5,000 units Documented by: [id number] Cosigned by: [id number] Hydralazine HCl (Apresoline) 50 mg PO QID [facility] Stop: 12/05/19 12:59 Last Admin: 11/12/19 20:29 Dose: 50 mg Documented by: [id number] Admin: 11/12/19 17:07 Dose: 50 mg Documented by: [id number] Admin: 11/12/19 13:13 Dose: 50 mg Documented by: [id number] Admin: 11/12/19 08:54 Dose: 50 mg Documented by: [id number] Admin: 11/08/19 08:20 Dose: 50 mg Documented by: [id number] Admin: 11/07/19 21:51 Dose: 50 mg Documented by: [id number] Admin: 11/07/19 17:05 Dose: 50 mg Documented by: [id number] Admin: 11/07/19 14:17 Dose: 50 mg Documented by: [id number] Admin: 11/07/19 08:41 Dose: 50 mg Documented by: [id number] Admin: 11/06/19 20:35 Dose: 50 mg Documented by: [id number] Admin: 11/06/19 18:09 Dose: 50 mg Documented by: [id number] Admin: 11/06/19 13:47 Dose: 50 mg Documented by: [id number] Cosigned by: [id number] Admin: 11/06/19 08:00 Dose: 50 mg Documented by: [id number] Cosigned by: [id number] Admin: 11/05/19 20:58 Dose: 50 mg Documented by: [id number] Admin: 11/05/19 17:11 Dose: 50 mg Documented by: [id number] Admin: 11/05/19 14:13 Dose: 50 mg Documented by: [id number] Promethazine HCl 12.5 mg/ (Sodium Chloride) 50.5 mls @ 202 mls/hr IV Q6H PRN PRN Reason: Nausea And Vomiting Stop: 12/06/19 20:12 Last Infusion: 11/10/19 10:00 Dose: 0 mls/hr Documented by: [id number] Admin: 11/10/19 09:41 Dose: 202 mls/hr Documented by: [id number] Infusion: 11/09/19 23:55 Dose: 0 mls/hr Documented by: [id number] Admin: 11/09/19 23:40 Dose: 202 mls/hr Documented by: [id number] Infusion: 11/09/19 12:08 Dose: 0 mls/hr Documented by: [id number] Admin: 11/09/19 11:38 Dose: 202 mls/hr Documented by: [id number] Infusion: 11/06/19 20:43 Dose: 0 mls/hr Documented by: [id number] Admin: 11/06/19 20:28 Dose: 202 mls/hr Documented by: [id number] Ceftriaxone Sodium 2,000 mg/ (Dextrose) 70 mls @ 140 mls/hr IV DAILY [facility] Stop: 11/19/19 08:59 Last Infusion: 11/12/19 09:36 Dose: 0 mls/hr Documented by: [id number] Admin: 11/12/19 09:06 Dose: 140 mls/hr Documented by: [id number] Doxycycline Hyclate 100 mg/ (Dextrose) 110 mls @ 50 mls/hr IV Q12H [facility] Stop: 11/18/19 17:59 Last Infusion: 11/12/19 20:18 Dose: 0 mls/hr Documented by: [id number] Admin: 11/12/19 17:34 Dose: 50 mls/hr Documented by: [id number] Infusion: 11/12/19 08:55 Dose: 0 mls/hr Documented by: [id number] Admin: 11/12/19 06:43 Dose: 50 mls/hr Documented by: [id number] Infusion: 11/11/19 22:35 Dose: 0 mls/hr Documented by: [id number] Admin: 11/11/19 18:39 Dose: 50 mls/hr Documented by: [id number] Labetalol HCl (Normodyne) 10 mg IV Q4 PRN PRN Reason: Hypertension Stop: 12/05/19 12:32 Last Admin: 11/12/19 07:41 Dose: 10 mg Documented by: [id number] Cosigned by: [id number] Admin: 11/11/19 16:13 Dose: 10 mg Documented by: [id number] Cosigned by: [id number] Admin: 11/10/19 07:53 Dose: 10 mg Documented by: [id number] Cosigned by: [id number] Admin: 11/10/19 03:24 Dose: 10 mg Documented by: [id number] Cosigned by: [id number] Admin: 11/09/19 15:49 Dose: 10 mg Documented by: [id number] Cosigned by: [id number] Admin: 11/08/19 08:50 Dose: 10 mg Documented by: [id number] Cosigned by: [id number] Admin: 11/06/19 04:11 Dose: 10 mg Documented by: [id number] Cosigned by: [id number] Admin: 11/05/19 17:28 Dose: 10 mg Documented by: [id number] Cosigned by: [id number] Lactobacillus Acidophilus (Floranex) 1 tab PO TIDM [facility] Stop: 12/05/19 07:59 Last Admin: 11/12/19 17:07 Dose: 1 tab Documented by: [id number] Admin: 11/12/19 12:07 Dose: 1 tab Documented by: [id number] Admin: 11/08/19 08:19 Dose: 1 tab Documented by: [id number] Admin: 11/07/19 17:05 Dose: 1 tab Documented by: [id number] Admin: 11/07/19 12:49 Dose: 1 tab Documented by: [id number] Admin: 11/07/19 08:40 Dose: 1 tab Documented by: [id number] Admin: 11/06/19 18:09 Dose: 1 tab Documented by: [id number] Admin: 11/06/19 13:04 Dose: Not Given Documented by: [id number] Admin: 11/06/19 09:18 Dose: 1 tab Documented by: [id number] Admin: 11/05/19 17:11 Dose: 1 tab Documented by: [id number] Admin: 11/05/19 12:21 Dose: 1 tab Documented by: [id number] Admin: 11/05/19 08:35 Dose: 1 tab Documented by: [id number] Metoprolol Tartrate (Lopressor) 50 mg PO BID [facility] Stop: 12/05/19 20:59 Last Admin: 11/12/19 20:29 Dose: 50 mg Documented by: [id number] Admin: 11/12/19 08:54 Dose: 50 mg Documented by: [id number] Admin: 11/11/19 20:13 Dose: 50 mg Documented by: [id number] Admin: 11/08/19 08:20 Dose: 50 mg Documented by: [id number] Admin: 11/07/19 21:52 Dose: 50 mg Documented by: [id number] Admin: 11/07/19 08:40 Dose: 50 mg Documented by: [id number] Admin: 11/06/19 20:35 Dose: 50 mg Documented by: [id number] Admin: 11/06/19 08:00 Dose: 50 mg Documented by: [id number] Cosigned by: [id number] Admin: 11/05/19 20:58 Dose: 50 mg Documented by: [id number] Miscellaneous (Check Clonidine Patch) 1 ea N/A QS [facility] Stop: 12/09/19 15:59 Last Admin: 11/12/19 17:05 Dose: 1 ea Documented by: [id number] Admin: 11/12/19 07:34 Dose: 1 ea Documented by: [id number] Admin: 11/12/19 00:48 Dose: 1 ea Documented by: [id number] Admin: 11/11/19 16:13 Dose: 1 ea Documented by: [id number] Admin: 11/11/19 08:43 Dose: 1 ea Documented by: [id number] Admin: 11/11/19 00:15 Dose: 1 ea Documented by: [id number] Admin: 11/10/19 18:07 Dose: 1 ea Documented by: [id number] Admin: 11/10/19 07:45 Dose: 1 ea Documented by: [id number] Admin: 11/09/19 23:57 Dose: Not Given Documented by: [id number] Admin: 11/09/19 16:28 Dose: 1 ea Documented by: [id number] Nitroglycerin (Nitro-Bid 2%) 1 inch EXT Q6H [facility] Stop: 12/05/19 12:14 Last Admin: 11/12/19 17:35 Dose: 1 inch Documented by: [id number] Admin: 11/12/19 12:08 Dose: 1 inch Documented by: [id number] Admin: 11/12/19 06:42 Dose: 1 inch Documented by: [id number] Admin: 11/12/19 00:49 Dose: 1 inch Documented by: [id number] Admin: 11/11/19 17:47 Dose: 1 inch Documented by: [id number] Admin: 11/11/19 11:08 Dose: 1 inch Documented by: [id number] Admin: 11/11/19 05:59 Dose: 1 inch Documented by: [id number] Admin: 11/11/19 00:15 Dose: 1 inch Documented by: [id number] Admin: 11/10/19 18:08 Dose: 1 inch Documented by: [id number] Admin: 11/10/19 11:39 Dose: 1 inch Documented by: [id number] Admin: 11/10/19 06:04 Dose: 1 inch Documented by: [id number] Admin: 11/09/19 23:57 Dose: 1 inch Documented by: [id number] Admin: 11/09/19 18:25 Dose: 1 inch Documented by: [id number] Admin: 11/09/19 11:23 Dose: 1 inch Documented by: [id number] Admin: 11/09/19 06:12 Dose: 1 inch Documented by: [id number] Admin: 11/09/19 00:09 Dose: 1 inch Documented by: [id number] Admin: 11/08/19 19:50 Dose: 1 inch Documented by: [id number] Admin: 11/08/19 11:11 Dose: 1 inch Documented by: [id number] Admin: 11/08/19 06:04 Dose: 1 inch Documented by: [id number] Admin: 11/08/19 00:01 Dose: 1 inch Documented by: [id number] Admin: 11/07/19 18:09 Dose: 1 inch Documented by: [id number] Admin: 11/07/19 12:49 Dose: 1 inch Documented by: [id number] Admin: 11/07/19 06:00 Dose: 1 inch Documented by: [id number] Admin: 11/07/19 01:54 Dose: 1 inch Documented by: [id number] Admin: 11/06/19 18:30 Dose: 1 inch Documented by: [id number] Admin: 11/06/19 12:09 Dose: 1 inch Documented by: [id number] Cosigned by: [id number] Admin: 11/06/19 05:46 Dose: 1 inch Documented by: [id number] Admin: 11/06/19 00:15 Dose: 1 inch Documented by: [id number] Admin: 11/05/19 17:21 Dose: 1 inch Documented by: [id number] Admin: 11/05/19 12:44 Dose: 1 inch Documented by: [id number] Oseltamivir Phosphate (Tamiflu) 30 mg PO DAILY [facility]; Protocol Stop: 11/14/19 09:01 Last Admin: 11/12/19 13:33 Dose: 30 mg Documented by: [id number] Admin: 11/11/19 12:39 Dose: Not Given Documented by: [id number] Admin: 11/11/19 12:16 Dose: 30 mg Documented by: [id number] Admin: 11/10/19 17:55 Dose: 30 mg Documented by: [id number] Admin: 11/10/19 02:31 Dose: Not Given Documented by: [id number] Sterile Water (Tube Feeding Water Flush) 125 ea GT Q6 [facility] Stop: 12/11/19 19:44 Last Admin: 11/12/19 17:31 Dose: 125 ea Documented by: [id number] Admin: 11/12/19 12:08 Dose: 125 ea Documented by: [id number] Admin: 11/12/19 07:28 Dose: Not Given Documented by: [id number] Admin: 11/12/19 07:27 Dose: Not Given Documented by: [id number] Admin: 11/12/19 06:42 Dose: 125 ea Documented by: [id number] Discontinued Medications Amlodipine Besylate (Norvasc) 10 mg PO DAILY [facility] Stop: 12/05/19 08:59 Last Admin: 11/08/19 08:20 Dose: 10 mg Documented by: [id number] Admin: 11/07/19 08:41 Dose: 10 mg Documented by: [id number] Admin: 11/06/19 08:00 Dose: 10 mg Documented by: [id number] Cosigned by: [id number] Admin: 11/05/19 08:35 Dose: 10 mg Documented by: [id number] Aspirin (Ecotrin Ectab) 81 mg PO HS [facility] Stop: 12/05/19 20:59 Last Admin: 11/07/19 21:52 Dose: 81 mg Documented by: [id number] Admin: 11/06/19 20:35 Dose: 81 mg Documented by: [id number] Admin: 11/05/19 20:58 Dose: 81 mg Documented by: [id number] Aspirin (Aspirin) 300 mg OR DAILY [facility] Stop: 12/08/19 09:59 Last Admin: 11/08/19 11:01 Dose: 300 mg Documented by: [id number] Atorvastatin Calcium (Lipitor) 40 mg PO QAM [facility] Stop: 12/09/19 08:59 Last Admin: 11/10/19 09:05 Dose: Not Given Documented by: [id number] Admin: 11/09/19 09:16 Dose: Not Given Documented by: [id number] Clonidine HCl (Catapres) 0.1 mg PO BID [facility] Stop: 12/05/19 08:59 Last Admin: 11/08/19 08:19 Dose: 0.1 mg Documented by: [id number] Admin: 11/07/19 21:53 Dose: 0.1 mg Documented by: [id number] Admin: 11/07/19 08:40 Dose: 0.1 mg Documented by: [id number] Admin: 11/06/19 21:53 Dose: 0.1 mg Documented by: [id number] Admin: 11/06/19 08:01 Dose: 0.1 mg Documented by: [id number] Cosigned by: [id number] Admin: 11/05/19 20:59 Dose: 0.1 mg Documented by: [id number] Admin: 11/05/19 08:34 Dose: 0.1 mg Documented by: [id number] Hydralazine HCl (Apresoline) 25 mg PO TID [facility] Stop: 12/05/19 08:59 Last Admin: 11/05/19 08:34 Dose: 25 mg Documented by: [id number] Hydralazine HCl (Hydralazine Hcl) 10 mg IV NOW ONE Stop: 11/05/19 09:46 Last Admin: 11/05/19 10:23 Dose: 10 mg Documented by: [id number] Hydralazine HCl (Hydralazine Hcl) 10 mg IV Q8 PRN PRN Reason: SBP> 180 Stop: 12/08/19 10:01 Last Admin: 11/09/19 09:24 Dose: 10 mg Documented by: [id number] Admin: 11/08/19 16:12 Dose: 10 mg Documented by: [id number] Hydralazine HCl (Hydralazine Hcl) 10 mg IV Q8 [facility] Stop: 12/09/19 21:59 Last Admin: 11/10/19 06:02 Dose: 10 mg Documented by: [id number] Admin: 11/09/19 21:30 Dose: 10 mg Documented by: [id number] Hydralazine HCl (Hydralazine Hcl) 20 mg IV Q8 [facility] Stop: 12/10/19 13:59 Last Admin: 11/11/19 06:00 Dose: 20 mg Documented by: [id number] Admin: 11/10/19 22:16 Dose: 20 mg Documented by: [id number] Admin: 11/10/19 14:27 Dose: 20 mg Documented by: [id number] Hydralazine HCl (Hydralazine Hcl) 10 mg IV NOW STA Stop: 11/10/19 10:10 Last Admin: 11/10/19 10:00 Dose: 10 mg Documented by: [id number] Hydralazine HCl (Hydralazine Hcl) 20 mg IV QID [facility] Stop: 12/11/19 12:59 Last Admin: 11/12/19 08:16 Dose: 20 mg Documented by: [id number] Admin: 11/11/19 22:44 Dose: 20 mg Documented by: [id number] Admin: 11/11/19 17:46 Dose: 20 mg Documented by: [id number] Admin: 11/11/19 12:28 Dose: 20 mg Documented by: [id number] Furosemide 40 mg/ Syringe 4 mls @ 4 mls/min IV ONE STA Stop: 11/05/19 00:03 Last Admin: 11/05/19 00:19 Dose: 4 mls/min Documented by: [id number] Azithromycin 500 mg/ Dextrose 255 mls @ 125 mls/hr IV Q24H [facility] Stop: 11/12/19 00:59 Last Infusion: 11/05/19 02:58 Dose: 0 mls/hr Documented by: [id number] Admin: 11/05/19 00:55 Dose: 125 mls/hr Documented by: [id number] Cefepime HCl 2,000 mg/ Syringe 22.6 mls @ 5.5 mls/min IV TODAY@0030 [facility]; Protocol Stop: 11/05/19 00:35 Last Admin: 11/05/19 00:55 Dose: 5.5 mls/min Documented by: [id number] Vancomycin HCl 1,250 mg/ (Sodium Chloride) 275 mls @ 125 mls/hr IV ONE ONE Stop: 11/05/19 03:41 Last Infusion: 11/05/19 03:59 Dose: 0 mls/hr Documented by: [id number] Admin: 11/05/19 01:55 Dose: 125 mls/hr Documented by: [id number] Heparin Sodium/Dextrose (Heparin Sodium/Dextrose) 25,000 units in 500 mls @ 15 mls/hr IV .Q24H [facility]; Protocol Stop: 12/05/19 01:44 Last Titration: 11/05/19 17:03 Dose: 0 units/hr, 0 mls/hr Documented by: [id number] Cosigned by: [id number] Titration: 11/05/19 13:08 Dose: 750 units/hr, 15 mls/hr Documented by: [id number] Cosigned by: [id number] Titration: 11/05/19 12:38 Dose: 0 units/hr, 0 mls/hr Documented by: [id number] Cosigned by: [id number] Titration: 11/05/19 12:37 Dose: 900 units/hr, 18 mls/hr Documented by: [id number] Cosigned by: [id number] Titration: 11/05/19 07:12 Dose: 920 units/hr, 18.4 mls/hr Documented by: [id number] Cosigned by: [id number] Titration: 11/05/19 05:48 Dose: 920 units/hr, 18.4 mls/hr Documented by: [id number] Cosigned by: [id number] Titration: 11/05/19 01:41 Dose: 0 units/hr, 0 mls/hr Documented by: [id number] Cosigned by: [id number] Admin: 11/05/19 01:40 Dose: 920 units/hr, 18.4 mls/hr Documented by: [id number] Cosigned by: [id number] Famotidine 20 mg/ Syringe 5 mls @ 2.5 mls/min IV DAILY [facility] Stop: 12/05/19 08:59 Last Admin: 11/05/19 08:33 Dose: 2.5 mls/min Documented by: [id number] Cefepime HCl 2,000 mg/ Syringe 20 mls @ 5 mls/min IV Q24H [facility] Stop: 11/14/19 00:00 Last Admin: 11/10/19 12:31 Dose: 5 mls/min Documented by: [id number] Admin: 11/09/19 14:27 Dose: 5 mls/min Documented by: [id number] Admin: 11/08/19 00:01 Dose: 5 mls/min Documented by: [id number] Admin: 11/07/19 00:34 Dose: 5 mls/min Documented by: [id number] Admin: 11/05/19 23:53 Dose: 5 mls/min Documented by: [id number] Furosemide 40 mg/ Syringe 4 mls @ 4 mls/min IV BID [facility] Stop: 12/05/19 12:44 Last Admin: 11/07/19 08:39 Dose: 4 mls/min Documented by: [id number] Admin: 11/06/19 20:36 Dose: 4 mls/min Documented by: [id number] Admin: 11/06/19 08:01 Dose: 4 mls/min Documented by: [id number] Cosigned by: [id number] Admin: 11/05/19 21:00 Dose: 4 mls/min Documented by: [id number] Admin: 11/05/19 13:08 Dose: 4 mls/min Documented by: [id number] Ceftaroline Fosamil 300 mg/ (Sodium Chloride) 260 mls @ 270 mls/hr IV Q12H [facility]; Protocol Stop: 11/12/19 05:59 Last Infusion: 11/09/19 09:37 Dose: 0 mls/hr Documented by: [id number] Admin: 11/09/19 06:11 Dose: 270 mls/hr Documented by: [id number] Infusion: 11/08/19 21:58 Dose: 0 mls/hr Documented by: [id number] Admin: 11/08/19 20:28 Dose: 270 mls/hr Documented by: [id number] Infusion: 11/08/19 07:33 Dose: 0 mls/hr Documented by: [id number] Admin: 11/08/19 06:03 Dose: 270 mls/hr Documented by: [id number] Infusion: 11/07/19 18:12 Dose: 0 mls/hr Documented by: [id number] Admin: 11/07/19 17:01 Dose: 270 mls/hr Documented by: [id number] Infusion: 11/07/19 08:32 Dose: 0 mls/hr Documented by: [id number] Admin: 11/07/19 06:00 Dose: 270 mls/hr Documented by: [id number] Furosemide 40 mg/ Syringe 4 mls @ 4 mls/min IV TODAY@1200 [facility]; Protocol Stop: 11/06/19 17:00 Last Admin: 11/06/19 15:14 Dose: 4 mls/min Documented by: [id number] Potassium Chloride (K Jelani / Wtr) 10 meq in 100 mls @ 100 mls/hr IV Q1H [facility] Stop: 11/07/19 11:59 Last Infusion: 11/07/19 12:49 Dose: 0 mls/hr Documented by: [id number] Admin: 11/07/19 11:41 Dose: 100 mls/hr Documented by: [id number] Infusion: 11/07/19 11:41 Dose: 100 mls/hr Documented by: [id number] Admin: 11/07/19 10:49 Dose: 100 mls/hr Documented by: [id number] Infusion: 11/07/19 10:39 Dose: 100 mls/hr Documented by: [id number] Admin: 11/07/19 09:39 Dose: 100 mls/hr Documented by: [id number] Infusion: 11/07/19 09:39 Dose: 100 mls/hr Documented by: [id number] Admin: 11/07/19 08:39 Dose: 100 mls/hr Documented by: [id number] Potassium Chloride (K Jelani / Wtr) 10 meq in 100 mls @ 100 mls/hr IV Q1H [facility] Stop: 11/08/19 13:14 Last Infusion: 11/08/19 14:49 Dose: 0 mls/hr Documented by: [id number] Admin: 11/08/19 13:27 Dose: 100 mls/hr Documented by: [id number] Infusion: 11/08/19 13:27 Dose: 100 mls/hr Documented by: [id number] Admin: 11/08/19 12:30 Dose: 100 mls/hr Documented by: [id number] Famotidine 20 mg/ Syringe 5 mls @ 2.5 mls/min IV BID [facility] Stop: 12/08/19 22:29 Last Admin: 11/10/19 09:10 Dose: 2.5 mls/min Documented by: [id number] Admin: 11/09/19 21:31 Dose: 2.5 mls/min Documented by: [id number] Admin: 11/09/19 09:24 Dose: 2.5 mls/min Documented by: [id number] Admin: 11/08/19 22:43 Dose: 2.5 mls/min Documented by: [id number] Potassium Chloride/Dextrose/Sod Cl (D5nss + 20meq Kcl) 20 meq in 1,000 mls @ 80 mls/hr IV .[id number] [facility] Stop: 11/09/19 22:44 Last Infusion: 11/10/19 00:35 Dose: 0 mls/hr Documented by: [id number] Infusion: 11/09/19 21:30 Dose: 0 mls/hr Documented by: [id number] Admin: 11/09/19 11:10 Dose: 75 mls/hr Documented by: [id number] Potassium Chloride (K Jelani / Wtr) 10 meq in 100 mls @ 100 mls/hr IV Q1H [facility] Stop: 11/09/19 13:29 Last Infusion: 11/09/19 15:45 Dose: 0 mls/hr Documented by: [id number] Admin: 11/09/19 14:13 Dose: 100 mls/hr Documented by: [id number] Infusion: 11/09/19 13:57 Dose: 100 mls/hr Documented by: [id number] Admin: 11/09/19 12:57 Dose: 100 mls/hr Documented by: [id number] Infusion: 11/09/19 12:10 Dose: 100 mls/hr Documented by: [id number] Admin: 11/09/19 11:10 Dose: 100 mls/hr Documented by: [id number] Potassium Chloride/Dextrose/Sod Cl (D5w And 1/2nss + 20meq Kcl) 20 meq in 1,000 mls @ 80 mls/hr IV .[id number] [facility] Stop: 12/09/19 19:59 Last Infusion: 11/10/19 11:11 Dose: 0 mls/hr Documented by: [id number] Admin: 11/10/19 09:04 Dose: 80 mls/hr Documented by: [id number] Infusion: 11/10/19 09:04 Dose: 80 mls/hr Documented by: [id number] Admin: 11/09/19 21:15 Dose: 80 mls/hr Documented by: [id number] Potassium Chloride (K Jelani / Wtr) 10 meq in 100 mls @ 100 mls/hr IV Q1H [facility] Stop: 11/09/19 23:29 Last Infusion: 11/09/19 23:28 Dose: 0 mls/hr Documented by: [id number] Admin: 11/09/19 22:38 Dose: 100 mls/hr Documented by: [id number] Infusion: 11/09/19 22:38 Dose: 100 mls/hr Documented by: [id number] Admin: 11/09/19 21:43 Dose: 100 mls/hr Documented by: [id number] Acetaminophen (Ofirmev) 1,000 mg in 100 mls @ 400 mls/hr IV Q8H PRN PRN Reason: Pain or Fever Stop: 11/13/19 02:07 Last Infusion: 11/11/19 00:47 Dose: 0 mls/hr Documented by: [id number] Admin: 11/11/19 00:19 Dose: 400 mls/hr Documented by: [id number] Infusion: 11/10/19 02:45 Dose: 0 mls/hr Documented by: [id number] Admin: 11/10/19 02:30 Dose: 400 mls/hr Documented by: [id number] Potassium Chloride 40 meq/ (Dextrose) 1,020 mls @ 125 mls/hr IV .Q8H10M [facility] Stop: 12/10/19 10:59 Last Infusion: 11/11/19 18:09 Dose: 0 mls/hr Documented by: [id number] Admin: 11/11/19 18:08 Dose: Not Given Documented by: [id number] Admin: 11/11/19 09:50 Dose: 125 mls/hr Documented by: [id number] Infusion: 11/11/19 07:13 Dose: 125 mls/hr Documented by: [id number] Infusion: 11/11/19 06:47 Dose: 125 mls/hr Documented by: [id number] Infusion: 11/11/19 06:00 Dose: 0 mls/hr Documented by: [id number] Admin: 11/10/19 22:16 Dose: 125 mls/hr Documented by: [id number] Infusion: 11/10/19 19:21 Dose: 125 mls/hr Documented by: [id number] Admin: 11/10/19 11:11 Dose: 125 mls/hr Documented by: [id number] Vancomycin HCl 1,500 mg/ (Sodium Chloride) 530 mls @ 200 mls/hr IV TODAY@1730 [facility] Stop: 11/10/19 20:08 Last Infusion: 11/11/19 07:20 Dose: 0 mls/hr Documented by: [id number] Admin: 11/10/19 19:02 Dose: 200 mls/hr Documented by: [id number] Ceftriaxone Sodium 2,000 mg/ (Dextrose) 70 mls @ 140 mls/hr IV Q12@0500,1700 [facility] Stop: 11/20/19 16:59 Last Admin: 11/11/19 18:09 Dose: Not Given Documented by: [id number] Infusion: 11/11/19 05:35 Dose: 0 mls/hr Documented by: [id number] Admin: 11/11/19 05:03 Dose: 140 mls/hr Documented by: [id number] Infusion: 11/10/19 19:05 Dose: 0 mls/hr Documented by: [id number] Admin: 11/10/19 18:33 Dose: 140 mls/hr Documented by: [id number] Ampicillin Sodium 2,000 mg/ (Sodium Chloride) 100 mls @ 200 mls/hr IV Q6H [facility]; Protocol Stop: 11/20/19 17:59 Last Admin: 11/11/19 14:46 Dose: Not Given Documented by: [id number] Infusion: 11/11/19 06:48 Dose: 0 mls/hr Documented by: [id number] Admin: 11/11/19 05:59 Dose: 200 mls/hr Documented by: [id number] Infusion: 11/11/19 01:44 Dose: 0 mls/hr Documented by: [id number] Admin: 11/11/19 01:06 Dose: 200 mls/hr Documented by: [id number] Infusion: 11/10/19 18:37 Dose: 0 mls/hr Documented by: [id number] Admin: 11/10/19 18:00 Dose: 200 mls/hr Documented by: [id number] Potassium Phosphate 15 mmol/ (Sodium Chloride) 255 mls @ 100 mls/hr IV 1030 ONE Stop: 11/11/19 13:02 Last Infusion: 11/11/19 14:47 Dose: 0 mls/hr Documented by: [id number] Admin: 11/11/19 11:13 Dose: 100 mls/hr Documented by: [id number] Furosemide 20 mg/ Syringe 2 mls @ 4 mls/min IV ONE ONE Stop: 11/11/19 18:01 Last Admin: 11/11/19 17:59 Dose: 4 mls/min Documented by: [id number] Labetalol HCl (Normodyne) 10 mg IV NOW STA Stop: 11/05/19 00:47 Last Admin: 11/05/19 00:56 Dose: 10 mg Documented by: [id number] Cosigned by: [id number] Labetalol HCl (Normodyne) 10 mg IV NOW STA Stop: 11/05/19 04:37 Last Admin: 11/05/19 04:41 Dose: 10 mg Documented by: [id number] Cosigned by: [id number] Metoprolol Tartrate (Lopressor) 25 mg PO BID [facility] Stop: 12/05/19 08:59 Last Admin: 11/05/19 08:35 Dose: 25 mg Documented by: [id number] Metoprolol Tartrate (Lopressor) 5 mg IV Q6 [facility] Stop: 12/08/19 11:59 Last Admin: 11/11/19 17:46 Dose: 5 mg Documented by: [id number] Admin: 11/11/19 11:07 Dose: 5 mg Documented by: [id number] Admin: 11/11/19 06:00 Dose: 5 mg Documented by: [id number] Admin: 11/11/19 00:14 Dose: 5 mg Documented by: [id number] Admin: 11/10/19 18:17 Dose: 5 mg Documented by: [id number] Admin: 11/10/19 11:38 Dose: 5 mg Documented by: [id number] Admin: 11/10/19 06:03 Dose: 5 mg Documented by: [id number] Admin: 11/09/19 23:57 Dose: 5 mg Documented by: [id number] Admin: 11/09/19 18:22 Dose: 5 mg Documented by: [id number] Admin: 11/09/19 11:22 Dose: 5 mg Documented by: [id number] Admin: 11/09/19 06:12 Dose: 5 mg Documented by: [id number] Admin: 11/09/19 00:08 Dose: 5 mg Documented by: [id number] Admin: 11/08/19 19:47 Dose: 5 mg Documented by: [id number] Admin: 11/08/19 11:06 Dose: 5 mg Documented by: [id number] Ondansetron HCl (Zofran) Confirm Administered Dose 4 mg .ROUTE .STK-MED ONE Stop: 11/05/19 08:45 Last Admin: 11/05/19 08:45 Dose: 4 mg Documented by: [id number] Ondansetron HCl (Zofran) 4 mg IV Q6H PRN PRN Reason: Nausea Stop: 12/05/19 12:32 Last Admin: 11/06/19 07:59 Dose: 4 mg Documented by: [id number] Cosigned by: [id number] Perflutren Lipid Microsphere (Definity) 2 ml IV ONCE ONE Stop: 11/05/19 15:27 Last Admin: 11/05/19 08:29 Dose: 2 ml Documented by: [id number] Potassium Chloride (Klor-Con M20) 60 meq PO ONE ONE Stop: 11/06/19 09:16 Last Admin: 11/06/19 09:23 Dose: 60 meq Documented by: [id number] Potassium Chloride (Gladys Ciel Elix) 40 meq PO NOW STA Stop: 11/09/19 19:43 Last Admin: 11/10/19 00:37 Dose: Not Given Documented by: [id number] Description This is a 21 electrode EEG with a single channel dedicated to limited EKG. The electrodes were placed in accordance with the International 10-20 system. REPORT: At the onset of the EEG the patient is awake. The background is symmetric but disorganized. There is loss of the anterior to posterior gradient. The posterior dominant rhythm is not seen. Instead the background consist of predominantly 5-6 theta activity with intermixed delta activity. There is intermittent generalized sharply contoured waves with triphasic morphology. Rare right temporal sharp waves are seen (T6).No stage II sleep transient are seen. Photic stimulation does not elicit any abnormalities. IMPRESSION: This is an abnormal routine EEG due to 1. Rare right temporal sharp waves suggestive of a predisposition for seizures from that area, 2. diffuse background slowing slowing suggestive of a moderate non specific encephalopathy, 3. intermittent triphasic waves which are nonspecific but more commonly seen in uremic or hepatic encephalopathies. No electrographic seizures are recorded.
[2019-11-12] MEDS ORDERED: FIBERSOURCE HN 1.2 CAL 1000 ML BAG PO SCH (22:31)
[2019-11-13] MEDS: HEPARIN SOD 5,000 UNIT/0.5 ML VIAL SQ SCH ×3 (05:32→21:18)
[2019-11-13] MEDS: DOXYCYCLINE HYCLATE 100 MG in DEXTROSE 5% 100 ML IV SCH ×2 (05:32→18:26)
[2019-11-13] MEDS: TUBE FEEDING WATER FLUSH GT SCH ×2 (05:33→12:31)
[2019-11-13] MEDS: NITROGLYCERIN 2% OINTMENT 30GM TUBE EXT SCH ×4 (05:33→23:44)
[2019-11-13 06:33] LABS: Hematocrit (blood only) 30.2 % (37-47); Hemoglobin 9.7 g/dL (12.0-16.0); Mean Corpuscular Hemoglobin 28.9 pg (25-34); Mean Corpuscular Hgb Conc 32.1 g/dL (32-36); Mean Corpuscular Volume 89.9 fL (80-100); Mean Platelet Volume 9.9 fL (7.4-10.4); Platelet Count 451 K/uL (130-400); RDW Coefficient of Variation 17.9 % (11.5-14.5); RDW Standard Deviation 58.7 fL (36.4-46.3); Red Blood Count 3.36 M/uL (4.2-5.4)
[2019-11-13 06:54] LABS: BUN Creatinine Ratio 20.1 (10-20); Calcium 8.8 mg/dl (8.5-10.1); Creatinine Clr Calc Pharmacy 19.8 ml/min; Est GFR (Non-African American) 20.7; Magnesium 1.8 mg/dl (1.8-2.4); Potassium 3.7 mmol/L (3.5-5.1)
[2019-11-13 07:03] LABS: Phosphorus 2.5 mg/dl (2.5-4.9)
[2019-11-13] MEDS: LACTOBACILLUS ACIDOPHILUS (FLORANEX) TAB PO SCH ×3 (07:33→16:38)
[2019-11-13] MEDS: cloNIDine HCL 0.1 MG TAB PO SCH ×2 (07:33→18:25)
[2019-11-13] MEDS: HydrALAZINE TAB 50 MG TAB PO SCH ×4 (07:53→21:16)
[2019-11-13] MEDS: ASPIRIN 81 MG CHEW PO SCH (07:54)
[2019-11-13] MEDS: FAMOTIDINE 20 MG TAB PO SCH (07:55)
[2019-11-13] MEDS: CLOPIDOGREL BISULFATE 75 MG TAB PO SCH (07:55)
[2019-11-13] MEDS: METOPROLOL TARTRATE 50 MG TAB PO SCH ×2 (07:55→21:47)
[2019-11-13] MEDS: ATORVASTATIN 40 MG TAB PO SCH (07:55)
[2019-11-13] MEDS: AMLODIPINE BESYLATE 5 MG TAB PO SCH (07:55)
[2019-11-13] MEDS: FIBERSOURCE HN 1.2 CAL 1000 ML BAG PO SCH (07:55)
[2019-11-13] MEDS: OSELTAMIVIR PHOSPHATE SUSP 30 MG/5 ML UDP PO SCH (07:56)
[2019-11-13] MEDS: cefTRIAXone SODIUM 2,000 MG in DEXTROSE 5% 50 ML IV SCH (09:03)
[2019-11-13 09:33] LABS: Albumin Globulin Ratio 0.4 (0.9-2); Albumin Level 1.8 gm/dl (3.4-5.0); Bilirubin,Total 0.4 mg/dl (0.2-1); Globulin 4.9 gm/dl (2.5-4.0); Total Protein 6.7 gm/dl (6.4-8.2)
[2019-11-13] MEDS ORDERED: HydrALAZINE HCL 20 MG/ML VIAL IV STA ×2 (17:49→21:38)
--- NOTE | 2019-11-13 17:56 | Hospitalist Progress Note ---
Date of Service November 13, 2019 Assessment & Plan (1) Elevated LFTs: uncertain cause, ?tube feeds which have now stopped. She was on PPN for a few days, also. Trend in am. Liver US ordered. (2) Acute hypoxemic respiratory failure: 2/2 Flu A and bilateral pneumonia. Continues on Tamiflu and Rocephin/Doxy IV. Hypoxia has resolved and she is doing well clinically. Recommend repeat CXR as outpatient in 4 weeks to ensure complete resolution of pneumonia. (3) Pneumonia: Consider transition to PO antibiotics in am. Keeping IV for now to minimize pill burden with the NGT just out. (4) Encephalopathy: acute metabolic encephalopathy-resolved. Will remove NGT at this time as she was starting to swallow well today. Speech path is following. (5) Influenza A: Tamiflu x 5 days, renal dosing (6) CKD (chronic kidney disease), stage IV: At baseline, renally dose meds as appropriate. (7) HTN (hypertension): Uncontrolled, may have some rebound HTN after temporarily being off her clonidine. Cont taking home medications including Norvasc 10, clonidine 0.1 BID (stopped weekly patch that was being given). Cont PRN hydralazine. Low salt diet. (8) Malnutrition: was given enteral feedings while unresponsive for a couple of days. Appreciate nutrition recs. As CorSafe is out, tube feeds have been stopped. Appreciate Nutrition recommendations. (9) Generalized weakness: may require rehab, cont with PT and OT. (10) Anemia: Likely multifactorial including chronic disease, CKD Stage IV and frequent phlebotomy over multiple hospitalizations reported in the past couple of months. No transfusion indicated at this time. (11) Acute diastolic CHF (congestive heart failure): initially fluid overloaded and treated with Lasix with improvement. Cardiology was consulted. Now, she is at risk for dehydration until she is eating reliably. Lasix is on hold. Appears euvolemic on exam. Low salt diet. (12) DVT prophylaxis: Heparin Conditional Code Dispo-uncertain, may be too weak to go home when medically stable. Maureen Mccoy DO [facility] Hospitalist Admission and Anticipated Discharge Date Admission Date: November 04, 2019 Subjective feeling well cough continues to improve afebrile denies chills denies SOB discussed removal of gray and patient asks for it for one more day she has weakness generally and is a fall risk she reports some worsened weakness in her left hand Review of Systems Review of Systems: All systems reviewed & are unremarkable except as noted in Subjective Physical Exam Physical Exam: CONSTITUTIONAL: thin, frail, vitals as above, generally well- appearing EYES: normal conjunctivae, no scleral icterus ENT: external ear and nose normal, MMM, CorSafe in place RESPIRATORY: clear to auscultation bilaterally, no crackles, rales or wheezes, normal respiratory effort CARDIOVASCULAR: regular rate and rhythm, 3/6 BRIGITTE heard across precordium, no gallops or rubs, no JVD, no peripheral edema GASTROINTESTINAL: soft, nontender, nondistended MUSCULOSKELETAL: moves all extremities equally, generalized weakness SKIN: warm and dry, some spotted ecchymosis on L distal arm NEUROLOGIC: No facial palsy, no dysarthria. CN 2-12 grossly intact, no sensory deficit, normal cognition, normal speech, no tremor, no gross focal deficits. PSYCHIATRIC: alert cooperative and oriented to person, place and time. Results & Data ([facility]) Vital Signs (Past 12 Hours) Vital Signs Temp Pulse Resp BP Pulse Ox 11/13/19 16:16 36.8 C 69 16 180/81 H 96 11/13/19 11:30 36.3 C L 67 18 157/79 H 97 11/13/19 08:00 37.0 C 80 18 188/68 H 97 Laboratory Results Short CBC 11/13/19 Range/Units 06:18 WBC 11.80 H (4.8-10.8) K/uL Hgb 9.7 L (12.0-16.0) g/dL Hct 30.2 L (37-47) % Plt Count 451 H (130-400) K/uL BMP 11/13/19 06:18 Sodium 141 Potassium 3.7 Chloride 111 H Carbon Dioxide 24 BUN 45 H Creatinine 2.23 H Glucose 131 H Calcium 8.8 Liver Function 11/13/19 Range/Units 06:18 Total Bilirubin 0.4 (0.2-1) mg/dl AST 161 H (15-37) U/L ALT 50 (12-78) U/L Alkaline Phosphatase 389 H (45-117) U/L Albumin 1.8 L (3.4-5.0) gm/dl Medications Administered Current Inpatient Medications Acetaminophen (Tylenol) 650 mg PO Q6 PRN PRN Reason: Pain Stop: 12/11/19 14:53 Albuterol (Duoneb) 3 ml NEB Q4R PRN PRN Reason: Shortness Of Breath Stop: 12/05/19 02:59 Amlodipine Besylate (Norvasc) 10 mg PO QAM [facility] Stop: 12/11/19 19:29 Last Admin: 11/13/19 07:55 Dose: 10 mg Documented by: Aspirin ([facility]in Chew) [facility] Stop: 12/12/19 08:59 Last Admin: 11/13/19 07:54 Dose: 81 mg Documented by: Atorvastatin Calcium (Lipitor) [facility] Stop: 12/12/19 08:59 Last Admin: 11/13/19 07:55 Dose: 40 mg Documented by: Clonidine HCl (Catapres) 0.1 mg PO Q12H [facility] Stop: 12/13/19 05:59 Last Admin: 11/13/19 07:33 Dose: 0.1 mg Documented by: Clopidogrel Bisulfate (Plavix) [facility] Stop: 12/05/19 08:59 Last Admin: 11/13/19 07:55 Dose: 75 mg Documented by: Cyanocobalamin (Vitamin B-12) 1,000 mcg PO QAM [facility] Stop: 12/05/19 08:59 Last Admin: 11/08/19 08:20 Dose: 1,000 mcg Documented by: Famotidine (Pepcid) 20 mg PO DAILY [facility] Stop: 12/06/19 08:59 Last Admin: 11/13/19 07:55 Dose: 20 mg Documented by: Furosemide (Lasix) 40 mg PO BID17 [facility] Stop: 12/07/19 16:59 Last Admin: 11/07/19 17:06 Dose: 40 mg Documented by: Heparin Sodium (Porcine) (Heparin Sodium (Porcine)) 5,000 units SQ Q8 [facility] Stop: 12/05/19 21:59 Last Admin: 11/13/19 14:01 Dose: 5,000 units Documented by: Hydralazine HCl (Apresoline) 50 mg PO QID [facility] Stop: 12/05/19 12:59 Last Admin: 11/13/19 16:38 Dose: 50 mg Documented by: Hydralazine HCl (Hydralazine Hcl) 10 mg IV Q8 PRN PRN Reason: sbp> 180 Stop: 12/12/19 08:42 Promethazine HCl 12.5 mg/ (Sodium Chloride) 50.5 mls @ 202 mls/hr IV Q6H PRN PRN Reason: Nausea And Vomiting Stop: 12/06/19 20:12 Last Infusion: 11/10/19 10:00 Dose: Infused Documented by: Ceftriaxone Sodium 2,000 mg/ (Dextrose) 70 mls @ 140 mls/hr IV DAILY [facility] Stop: 11/19/19 08:59 Last Infusion: 11/13/19 09:33 Dose: Infused Documented by: Doxycycline Hyclate 100 mg/ (Dextrose) 110 mls @ 50 mls/hr IV Q12H [facility] Stop: 11/18/19 17:59 Last Infusion: 11/13/19 07:44 Dose: Infused Documented by: Lactobacillus Acidophilus (Floranex) 1 tab PO TIDM [facility] Stop: 12/05/19 07:59 Last Admin: 11/13/19 16:38 Dose: 1 tab Documented by: Metoprolol Tartrate (Lopressor) 50 mg PO BID [facility] Stop: 12/05/19 20:59 Last Admin: 11/13/19 07:55 Dose: 50 mg Documented by: Nitroglycerin (Nitro-Bid 2%) 1 inch EXT Q6H [facility] Stop: 12/05/19 12:14 Last Admin: 11/13/19 12:31 Dose: 1 inch Documented by: Oseltamivir Phosphate (Tamiflu) 30 mg PO DAILY [facility]; Protocol Stop: 11/14/19 09:01 Last Admin: 11/13/19 07:56 Dose: 30 mg Documented by: (1) Pneumonia Laterality: right Lung location: upper lobe of lung Pneumonia type: due to unspecified organism Qualified Code(s): J18.9 - Pneumonia, unspecified organism
[2019-11-13 20:25] LABS: Cdiff Antigen Positive; Cdiff Toxin A+B Negative Cdiff Toxin (Negative)
[2019-11-14] MEDS: DOXYCYCLINE HYCLATE 100 MG in DEXTROSE 5% 100 ML IV SCH ×2 (05:20→18:24)
[2019-11-14] MEDS: HEPARIN SOD 5,000 UNIT/0.5 ML VIAL SQ SCH ×3 (05:23→20:46)
[2019-11-14] MEDS: NITROGLYCERIN 2% OINTMENT 30GM TUBE EXT SCH ×3 (05:26→18:54)
[2019-11-14] MEDS: cloNIDine HCL 0.1 MG TAB PO SCH ×2 (05:29→18:54)
[2019-11-14 06:45] LABS: Hematocrit (blood only) 29.1 % (37-47); Hemoglobin 9.3 g/dL (12.0-16.0); Mean Corpuscular Volume 90.7 fL (80-100); Mean Platelet Volume 10.4 fL (7.4-10.4); Platelet Count 428 K/uL (130-400); RDW Coefficient of Variation 17.7 % (11.5-14.5); RDW Standard Deviation 58.6 fL (36.4-46.3); Red Blood Count 3.21 M/uL (4.2-5.4)
[2019-11-14 07:19] LABS: Albumin Level 1.6 gm/dl (3.4-5.0); BUN Creatinine Ratio 26.3 (10-20); Calcium 8.6 mg/dl (8.5-10.1); Creatinine Clr Calc Pharmacy 18.6 ml/min; Est GFR (African American) 22.2; Est GFR (Non-African American) 19.2; Potassium 3.6 mmol/L (3.5-5.1)
[2019-11-14 07:22] LABS: Albumin Globulin Ratio 0.3 (0.9-2); Bilirubin,Total 0.4 mg/dl (0.2-1); Globulin 4.7 gm/dl (2.5-4.0); Total Protein 6.3 gm/dl (6.4-8.2)
--- NOTE | 2019-11-14 08:02 | Hospitalist Progress Note ---
Date of Service November 14, 2019 Assessment & Plan (1) Acute hypoxemic respiratory failure: 2/2 Flu A and bilateral pneumonia. Continues on Tamiflu and Rocephin/Doxy IV. Hypoxia has resolved and she is doing well clinically. Recommend repeat CXR as outpatient in 4 weeks to ensure complete resolution of pneumonia. (2) Pneumonia: Continue Abx for now (3) Influenza A: tamiflu, renal dosage, for 5 days. (4) Metabolic encephalopathy: resolved (5) Acute kidney injury superimposed on chronic kidney disease: Likely related to ATN after insult from pneumonia and flu per nephrology. Around her baseline, holding lasix. (6) Elevated LFTs: uncertain cause, ?tube feeds which have now stopped. She was on PPN for a few days, also. Trend in am. Liver US ordered. (7) HTN (hypertension): Uncontrolled, may have some rebound HTN after temporarily being off her clonidine. Cont taking home medications including Norvasc 10, clonidine 0.1 BID (stopped weekly patch that was being given). Cont PRN hydralazine. Low salt diet. (8) Anemia: Likely multifactorial including chronic disease, CKD Stage IV and frequent phlebotomy over multiple hospitalizations reported in the past couple of months. No transfusion indicated at this time. (9) Acute diastolic heart failure: Initially was fluid overloaded. Lasix on hold for now. Examines as euvolemic. (10) Encephalopathy: acute metabolic encephalopathy-resolved. Will remove NGT at this time as she was starting to swallow well today. Speech path is following. (11) CKD (chronic kidney disease), stage IV: At baseline, renally dose meds as appropriate. (12) Malnutrition: was given enteral feedings while unresponsive for a couple of days. CorSafe is out, tube feeds have been stopped. (13) Generalized weakness: may require rehab, cont with PT and OT. (14) DVT prophylaxis: Heparin Conditional Code Dispo-uncertain at this time. Labs Checked ROS-No Headache, No Visual Changes, No Nausea, No Vomiting, No Fever, No Chills, No Neck Pain or Stiffness, No Chest Pain, No Palpitations, No SOB, No ALDRIDGE, No Cough, No Sputum, No Wheezing, No Abdominal Pain, No Diarrhea, No Hematemesis, No Hemoptysis, No Unexpected Weight Loss, No Flank pain, No Melena, No Hematochezia, No Frequency, No Urgency, No Burning, No Hematuria, No Rashes, No Diaphoresis. Appetite is Normal, +Nasal Bleed from DuoTube removal Physical Exam Gen-AAO x 3, NAD, Afebrile, Nasal Bleeding from tube removal, RN reports bleeding letting up a lot Head-NCAT, EOMI, PERRLA, Anicteric Sclera, No Posterior Pharyngeal Erythema Neck-Supple, No JVD, No Thyromegaly, No Masses, No LAD, No Bruits Lungs-Clear to Auscultation Bilaterally, No Rales, No Rhonchi, No Wheezing, No Crepitus Chest-No S4, +S1, +S2, No S3, No Murmurs, No Rubs, No Gallops, No Ectopy Abdomen-Soft, Bowel Sounds Present, Non Tender, Non Distended, No Hepatomegaly, No Splenomegaly, No Palpable Masses, No Rebound, No Rigidity, No Guarding Musculoskeletal-Full Range of Motion Bilaterally, No CVAT Extremities-No Cyanosis, No Clubbing, No Edema Nuero-Cranial Nerves II-XII grossly intact, Motor WNL, DTRs WNL, Strength WNL, Non Focal Psych-Normal Mood Admission and Anticipated Discharge Date Admission Date: November 04, 2019 Results & Data ([facility]) Vital Signs (Past 12 Hours) Vital Signs Temp Pulse Pulse Pulse Resp BP Pulse Ox 11/14/19 07:02 36.4 C L 71 16 159/71 H 97 11/14/19 03:18 37.0 C 66 18 176/62 H 95 11/14/19 00:00 68 11/13/19 23:36 36.5 C 70 16 169/66 H 97 11/13/19 21:13 72 177/77 H 96 (1) Pneumonia Laterality: right Lung location: upper lobe of lung Pneumonia type: due to unspecified organism Qualified Code(s): J18.9 - Pneumonia, unspecified organism
--- NOTE | 2019-11-14 08:33 | Ultrasound Report ---
Biliary ultrasound CLINICAL HISTORY: elevated LFTs. COMPARISON STUDY: November 08, 2019 FINDINGS: The gallbladder is surgically absent. The visualized portions of pancreas appear normal. There is no right-sided hydronephrosis. There is no ductal dilatation. The common bile duct measures 4 mm. The liver is heterogeneous in echotexture with increased echogenicity. This a nonspecific finding mos t often seen in hepatic steatosis. Facet processes and hepatitis can appear similar. IMPRESSION: 1. Surgically absent gallbladder 2. No ductal dilatation 3. Nonspecific increase in hepatic echogenicity, a nonspecific finding most often seen in hepatic lo atosis. Hepatitis and infiltrative processes can appear similar. ACT 112: Negative or not required by law. Electronically signed by: Uriah Tyler M.D. 11/14/2019 8:31 AM
[2019-11-14] MEDS: cefTRIAXone SODIUM 2,000 MG in DEXTROSE 5% 50 ML IV SCH (08:55)
[2019-11-14] MEDS: LACTOBACILLUS ACIDOPHILUS (FLORANEX) TAB PO SCH ×3 (08:56→16:25)
[2019-11-14] MEDS: ASPIRIN 81 MG CHEW PO SCH (08:57)
[2019-11-14] MEDS: AMLODIPINE BESYLATE 5 MG TAB PO SCH (08:57)
[2019-11-14] MEDS: FAMOTIDINE 20 MG TAB PO SCH (08:57)
[2019-11-14] MEDS: HydrALAZINE TAB 50 MG TAB PO SCH ×4 (08:58→20:46)
[2019-11-14] MEDS: ATORVASTATIN 40 MG TAB PO SCH (08:58)
[2019-11-14] MEDS: CLOPIDOGREL BISULFATE 75 MG TAB PO SCH (08:58)
[2019-11-14] MEDS: METOPROLOL TARTRATE 50 MG TAB PO SCH ×2 (08:58→20:46)
--- NOTE | 2019-11-14 11:19 | Electroencephalogram ---
EEG Procedure Note Date of Service November 14, 2019 Start / End Times Start Time: 0942 End Time: 1002 Referring Physician Gypsy Vogel MD History History of confusion with abnormal EEG demonstrating generalized slowing, triphasic wave activity and low frequency right temporal sharp waves. Patient now awake alert and asymptomatic question ongoing EEG abnormalities Home Medication List Home Medications Medication Instructions Recorded Confirmed Type aspirin 81 mg PO HS 08/19/18 11/05/19 History clopidogrel 75 mg PO QAM 08/19/18 11/05/19 History cyanocobalamin (vitamin B-12) 1,000 mcg PO QAM 08/19/18 11/05/19 History amlodipine 10 mg PO DAILY 08/30/19 11/05/19 History sertraline 50 mg PO DAILY 08/30/19 11/05/19 History Lactobacillus acidoph-L.bulgar 1 tab PO TIDM 10 Days #30 tab 10/01/19 11/05/19 Rx ondansetron HCl 4 mg PO Q8 PRN 10/10/19 11/05/19 History ranitidine HCl 150 mg PO BID 10/10/19 11/05/19 History clonidine HCl 0.1 mg PO BID 30 Days #60 tab 10/13/19 11/05/19 Rx metoprolol tartrate 25 mg PO BID 30 Days #60 tab 10/13/19 11/05/19 Rx hydralazine 25 mg PO TID 11/05/19 11/05/19 History vancomycin PO Q6 11/05/19 History Inpatient Medication List Amlodipine Besylate (Norvasc) 10 mg PO [facility] Stop: 12/11/19 19:29 Last Admin: 11/14/19 08:57 Dose: 10 mg Documented by: [id number] Admin: 11/13/19 07:55 Dose: 10 mg Documented by: [id number] Admin: 11/12/19 08:54 Dose: 10 mg Documented by: [id number] Admin: 11/11/19 20:12 Dose: 10 mg Documented by: [id number] Aspirin (Aspirin Chew) 81 mg PO [facility] Stop: 12/12/19 08:59 Last Admin: 11/14/19 08:57 Dose: 81 mg Documented by: [id number] Admin: 11/13/19 07:54 Dose: 81 mg Documented by: [id number] Admin: 11/12/19 09:06 Dose: 81 mg Documented by: [id number] Atorvastatin Calcium (Lipitor) 40 mg PO [facility] Stop: 12/12/19 08:59 Last Admin: 11/14/19 08:58 Dose: 40 mg Documented by: [id number] Admin: 11/13/19 07:55 Dose: 40 mg Documented by: [id number] Admin: 11/12/19 08:54 Dose: 40 mg Documented by: [id number] Clonidine HCl (Catapres) 0.1 mg PO Q12H [facility] Stop: 12/13/19 05:59 Last Admin: 11/14/19 05:29 Dose: 0.1 mg Documented by: [id number] Admin: 11/13/19 18:25 Dose: 0.1 mg Documented by: [id number] Admin: 11/13/19 07:33 Dose: 0.1 mg Documented by: [id number] Clopidogrel Bisulfate (Plavix) 75 mg PO [facility] Stop: 12/05/19 08:59 Last Admin: 11/14/19 08:58 Dose: 75 mg Documented by: [id number] Admin: 11/13/19 07:55 Dose: 75 mg Documented by: [id number] Admin: 11/12/19 08:54 Dose: 75 mg Documented by: [id number] Admin: 11/08/19 08:19 Dose: 75 mg Documented by: [id number] Admin: 11/07/19 08:40 Dose: 75 mg Documented by: [id number] Admin: 11/06/19 09:19 Dose: 75 mg Documented by: [id number] Admin: 11/05/19 08:34 Dose: 75 mg Documented by: [id number] Cyanocobalamin (Vitamin B-12) 1,000 mcg PO [facility] Stop: 12/05/19 08:59 Last Admin: 11/08/19 08:20 Dose: 1,000 mcg Documented by: [id number] Admin: 11/07/19 08:40 Dose: 1,000 mcg Documented by: [id number] Admin: 11/06/19 09:20 Dose: 1,000 mcg Documented by: [id number] Admin: 11/05/19 08:35 Dose: 1,000 mcg Documented by: [id number] Famotidine (Pepcid) 20 mg PO DAILY [facility] Stop: 12/06/19 08:59 Last Admin: 11/14/19 08:57 Dose: 20 mg Documented by: [id number] Admin: 11/13/19 07:55 Dose: 20 mg Documented by: [id number] Admin: 11/12/19 08:54 Dose: 20 mg Documented by: [id number] Admin: 11/08/19 08:20 Dose: 20 mg Documented by: [id number] Admin: 11/07/19 08:40 Dose: 20 mg Documented by: [id number] Admin: 11/06/19 09:20 Dose: 20 mg Documented by: [id number] Furosemide (Lasix) 40 mg PO BID17 [facility] Stop: 12/07/19 16:59 Last Admin: 11/07/19 17:06 Dose: 40 mg Documented by: [id number] Heparin Sodium (Porcine) (Heparin Sodium (Porcine)) 5,000 units SQ Q8 [facility] Stop: 12/05/19 21:59 Last Admin: 11/14/19 05:23 Dose: 5,000 units Documented by: [id number] Cosigned by: [id number] Admin: 11/13/19 21:18 Dose: 5,000 units Documented by: [id number] Cosigned by: [id number] Admin: 11/13/19 14:01 Dose: 5,000 units Documented by: [id number] Cosigned by: [id number] Admin: 11/13/19 05:32 Dose: 5,000 units Documented by: [id number] Cosigned by: [id number] Admin: 11/12/19 20:29 Dose: 5,000 units Documented by: [id number] Cosigned by: [id number] Admin: 11/12/19 13:13 Dose: 5,000 units Documented by: [id number] Cosigned by: [id number] Admin: 11/12/19 06:42 Dose: 5,000 units Documented by: [id number] Cosigned by: [id number] Admin: 11/11/19 22:56 Dose: 5,000 units Documented by: [id number] Cosigned by: [id number] Admin: 11/08/19 13:28 Dose: 5,000 units Documented by: [id number] Cosigned by: [id number] Admin: 11/08/19 06:03 Dose: 5,000 units Documented by: [id number] Cosigned by: [id number] Admin: 11/07/19 21:53 Dose: 5,000 units Documented by: [id number] Cosigned by: [id number] Admin: 11/07/19 14:18 Dose: 5,000 units Documented by: [id number] Cosigned by: [id number] Admin: 11/07/19 05:54 Dose: 5,000 units Documented by: [id number] Cosigned by: [id number] Admin: 11/06/19 20:35 Dose: 5,000 units Documented by: [id number] Cosigned by: [id number] Admin: 11/06/19 13:47 Dose: 5,000 units Documented by: [id number] Cosigned by: [id number] Admin: 11/06/19 05:47 Dose: 5,000 units Documented by: [id number] Cosigned by: [id number] Admin: 11/05/19 21:09 Dose: 5,000 units Documented by: [id number] Cosigned by: [id number] Hydralazine HCl (Apresoline) 50 mg PO QID [facility] Stop: 12/05/19 12:59 Last Admin: 11/14/19 08:58 Dose: 50 mg Documented by: [id number] Admin: 11/13/19 21:16 Dose: 50 mg Documented by: [id number] Admin: 11/13/19 16:38 Dose: 50 mg Documented by: [id number] Admin: 11/13/19 12:32 Dose: 50 mg Documented by: [id number] Admin: 11/13/19 07:53 Dose: 50 mg Documented by: [id number] Admin: 11/12/19 20:29 Dose: 50 mg Documented by: [id number] Admin: 11/12/19 17:07 Dose: 50 mg Documented by: [id number] Admin: 11/12/19 13:13 Dose: 50 mg Documented by: [id number] Admin: 11/12/19 08:54 Dose: 50 mg Documented by: [id number] Admin: 11/08/19 08:20 Dose: 50 mg Documented by: [id number] Admin: 11/07/19 21:51 Dose: 50 mg Documented by: [id number] Admin: 11/07/19 17:05 Dose: 50 mg Documented by: [id number] Admin: 11/07/19 14:17 Dose: 50 mg Documented by: [id number] Admin: 11/07/19 08:41 Dose: 50 mg Documented by: [id number] Admin: 11/06/19 20:35 Dose: 50 mg Documented by: [id number] Admin: 11/06/19 18:09 Dose: 50 mg Documented by: [id number] Admin: 11/06/19 13:47 Dose: 50 mg Documented by: [id number] Cosigned by: [id number] Admin: 11/06/19 08:00 Dose: 50 mg Documented by: [id number] Cosigned by: [id number] Admin: 11/05/19 20:58 Dose: 50 mg Documented by: [id number] Admin: 11/05/19 17:11 Dose: 50 mg Documented by: [id number] Admin: 11/05/19 14:13 Dose: 50 mg Documented by: [id number] Promethazine HCl 12.5 mg/ (Sodium Chloride) 50.5 mls @ 202 mls/hr IV Q6H PRN PRN Reason: Nausea And Vomiting Stop: 12/06/19 20:12 Last Infusion: 11/10/19 10:00 Dose: 0 mls/hr Documented by: [id number] Admin: 11/10/19 09:41 Dose: 202 mls/hr Documented by: [id number] Infusion: 11/09/19 23:55 Dose: 0 mls/hr Documented by: [id number] Admin: 11/09/19 23:40 Dose: 202 mls/hr Documented by: [id number] Infusion: 11/09/19 12:08 Dose: 0 mls/hr Documented by: [id number] Admin: 11/09/19 11:38 Dose: 202 mls/hr Documented by: [id number] Infusion: 11/06/19 20:43 Dose: 0 mls/hr Documented by: [id number] Admin: 11/06/19 20:28 Dose: 202 mls/hr Documented by: [id number] Ceftriaxone Sodium 2,000 mg/ (Dextrose) 70 mls @ 140 mls/hr IV DAILY [facility] Stop: 11/19/19 08:59 Last Infusion: 11/14/19 09:25 Dose: 0 mls/hr Documented by: [id number] Admin: 11/14/19 08:55 Dose: 140 mls/hr Documented by: [id number] Infusion: 11/13/19 09:33 Dose: 0 mls/hr Documented by: [id number] Admin: 11/13/19 09:03 Dose: 140 mls/hr Documented by: [id number] Infusion: 11/12/19 09:36 Dose: 0 mls/hr Documented by: [id number] Admin: 11/12/19 09:06 Dose: 140 mls/hr Documented by: [id number] Doxycycline Hyclate 100 mg/ (Dextrose) 110 mls @ 50 mls/hr IV Q12H [facility] Stop: 11/18/19 17:59 Last Infusion: 11/14/19 06:29 Dose: 0 mls/hr Documented by: [id number] Admin: 11/14/19 05:20 Dose: 50 mls/hr Documented by: [id number] Infusion: 11/13/19 23:18 Dose: 0 mls/hr Documented by: [id number] Admin: 11/13/19 18:26 Dose: 50 mls/hr Documented by: [id number] Infusion: 11/13/19 07:44 Dose: 0 mls/hr Documented by: [id number] Admin: 11/13/19 05:32 Dose: 50 mls/hr Documented by: [id number] Infusion: 11/12/19 20:18 Dose: 0 mls/hr Documented by: [id number] Admin: 11/12/19 17:34 Dose: 50 mls/hr Documented by: [id number] Infusion: 11/12/19 08:55 Dose: 0 mls/hr Documented by: [id number] Admin: 11/12/19 06:43 Dose: 50 mls/hr Documented by: [id number] Infusion: 11/11/19 22:35 Dose: 0 mls/hr Documented by: [id number] Admin: 11/11/19 18:39 Dose: 50 mls/hr Documented by: [id number] Lactobacillus Acidophilus (Floranex) 1 tab PO TIDM [facility] Stop: 12/05/19 07:59 Last Admin: 11/14/19 08:56 Dose: 1 tab Documented by: [id number] Admin: 11/13/19 16:38 Dose: 1 tab Documented by: [id number] Admin: 11/13/19 12:30 Dose: 1 tab Documented by: [id number] Admin: 11/13/19 07:33 Dose: 1 tab Documented by: [id number] Admin: 11/12/19 17:07 Dose: 1 tab Documented by: [id number] Admin: 11/12/19 12:07 Dose: 1 tab Documented by: [id number] Admin: 11/08/19 08:19 Dose: 1 tab Documented by: [id number] Admin: 11/07/19 17:05 Dose: 1 tab Documented by: [id number] Admin: 11/07/19 12:49 Dose: 1 tab Documented by: [id number] Admin: 11/07/19 08:40 Dose: 1 tab Documented by: [id number] Admin: 11/06/19 18:09 Dose: 1 tab Documented by: [id number] Admin: 11/06/19 13:04 Dose: Not Given Documented by: [id number] Admin: 11/06/19 09:18 Dose: 1 tab Documented by: [id number] Admin: 11/05/19 17:11 Dose: 1 tab Documented by: [id number] Admin: 11/05/19 12:21 Dose: 1 tab Documented by: [id number] Admin: 11/05/19 08:35 Dose: 1 tab Documented by: [id number] Metoprolol Tartrate (Lopressor) 50 mg PO BID [facility] Stop: 12/05/19 20:59 Last Admin: 11/14/19 08:58 Dose: 50 mg Documented by: [id number] Admin: 11/13/19 21:47 Dose: 50 mg Documented by: [id number] Admin: 11/13/19 07:55 Dose: 50 mg Documented by: [id number] Admin: 11/12/19 20:29 Dose: 50 mg Documented by: [id number] Admin: 11/12/19 08:54 Dose: 50 mg Documented by: [id number] Admin: 11/11/19 20:13 Dose: 50 mg Documented by: [id number] Admin: 11/08/19 08:20 Dose: 50 mg Documented by: [id number] Admin: 11/07/19 21:52 Dose: 50 mg Documented by: [id number] Admin: 11/07/19 08:40 Dose: 50 mg Documented by: [id number] Admin: 11/06/19 20:35 Dose: 50 mg Documented by: [id number] Admin: 11/06/19 08:00 Dose: 50 mg Documented by: [id number] Cosigned by: [id number] Admin: 11/05/19 20:58 Dose: 50 mg Documented by: [id number] Nitroglycerin (Nitro-Bid 2%) 1 inch EXT Q6H [facility] Stop: 12/05/19 12:14 Last Admin: 11/14/19 05:26 Dose: 1 inch Documented by: [id number] Admin: 11/13/19 23:44 Dose: 1 inch Documented by: [id number] Admin: 11/13/19 18:07 Dose: 1 inch Documented by: [id number] Admin: 11/13/19 12:31 Dose: 1 inch Documented by: [id number] Admin: 11/13/19 05:33 Dose: 1 inch Documented by: [id number] Admin: 11/12/19 23:32 Dose: 1 inch Documented by: [id number] Admin: 11/12/19 17:35 Dose: 1 inch Documented by: [id number] Admin: 11/12/19 12:08 Dose: 1 inch Documented by: [id number] Admin: 11/12/19 06:42 Dose: 1 inch Documented by: [id number] Admin: 11/12/19 00:49 Dose: 1 inch Documented by: [id number] Admin: 11/11/19 17:47 Dose: 1 inch Documented by: [id number] Admin: 11/11/19 11:08 Dose: 1 inch Documented by: [id number] Admin: 11/11/19 05:59 Dose: 1 inch Documented by: [id number] Admin: 11/11/19 00:15 Dose: 1 inch Documented by: [id number] Admin: 11/10/19 18:08 Dose: 1 inch Documented by: [id number] Admin: 11/10/19 11:39 Dose: 1 inch Documented by: [id number] Admin: 11/10/19 06:04 Dose: 1 inch Documented by: [id number] Admin: 11/09/19 23:57 Dose: 1 inch Documented by: [id number] Admin: 11/09/19 18:25 Dose: 1 inch Documented by: [id number] Admin: 11/09/19 11:23 Dose: 1 inch Documented by: [id number] Admin: 11/09/19 06:12 Dose: 1 inch Documented by: [id number] Admin: 11/09/19 00:09 Dose: 1 inch Documented by: [id number] Admin: 11/08/19 19:50 Dose: 1 inch Documented by: [id number] Admin: 11/08/19 11:11 Dose: 1 inch Documented by: [id number] Admin: 11/08/19 06:04 Dose: 1 inch Documented by: [id number] Admin: 11/08/19 00:01 Dose: 1 inch Documented by: [id number] Admin: 11/07/19 18:09 Dose: 1 inch Documented by: [id number] Admin: 11/07/19 12:49 Dose: 1 inch Documented by: [id number] Admin: 11/07/19 06:00 Dose: 1 inch Documented by: [id number] Admin: 11/07/19 01:54 Dose: 1 inch Documented by: [id number] Admin: 11/06/19 18:30 Dose: 1 inch Documented by: [id number] Admin: 11/06/19 12:09 Dose: 1 inch Documented by: [id number] Cosigned by: [id number] Admin: 11/06/19 05:46 Dose: 1 inch Documented by: [id number] Admin: 11/06/19 00:15 Dose: 1 inch Documented by: [id number] Admin: 11/05/19 17:21 Dose: 1 inch Documented by: [id number] Admin: 11/05/19 12:44 Dose: 1 inch Documented by: [id number] Discontinued Medications Amlodipine Besylate (Norvasc) 10 mg PO DAILY [facility] Stop: 12/05/19 08:59 Last Admin: 11/08/19 08:20 Dose: 10 mg Documented by: [id number] Admin: 11/07/19 08:41 Dose: 10 mg Documented by: [id number] Admin: 11/06/19 08:00 Dose: 10 mg Documented by: [id number] Cosigned by: [id number] Admin: 11/05/19 08:35 Dose: 10 mg Documented by: [id number] Aspirin (Ecotrin Ectab) 81 mg PO HS [facility] Stop: 12/05/19 20:59 Last Admin: 11/07/19 21:52 Dose: 81 mg Documented by: [id number] Admin: 11/06/19 20:35 Dose: 81 mg Documented by: [id number] Admin: 11/05/19 20:58 Dose: 81 mg Documented by: [id number] Aspirin (Aspirin) 300 mg [place] DAILY [facility] Stop: 12/08/19 09:59 Last Admin: 11/08/19 11:01 Dose: 300 mg Documented by: [id number] Atorvastatin Calcium (Lipitor) 40 mg PO QAM [facility] Stop: 12/09/19 08:59 Last Admin: 11/10/19 09:05 Dose: Not Given Documented by: [id number] Admin: 11/09/19 09:16 Dose: Not Given Documented by: [id number] Clonidine HCl (Catapres) 0.1 mg PO BID [facility] Stop: 12/05/19 08:59 Last Admin: 11/08/19 08:19 Dose: 0.1 mg Documented by: [id number] Admin: 11/07/19 21:53 Dose: 0.1 mg Documented by: [id number] Admin: 11/07/19 08:40 Dose: 0.1 mg Documented by: [id number] Admin: 11/06/19 21:53 Dose: 0.1 mg Documented by: [id number] Admin: 11/06/19 08:01 Dose: 0.1 mg Documented by: [id number] Cosigned by: [id number] Admin: 11/05/19 20:59 Dose: 0.1 mg Documented by: [id number] Admin: 11/05/19 08:34 Dose: 0.1 mg Documented by: [id number] Clonidine HCl (Gnjenxpy-Zxe-4 0.1mg/24hr) 1 patch TD Ramirez@1200 [facility] Stop: 12/09/19 11:59 Last Admin: 11/09/19 11:11 Dose: 1 patch Documented by: [id number] Enteral Nutritional Formula (Fibersource Hn 1.2 Elbert Liquid) 1,000 ml PO DAILY [facility]; Protocol Stop: 12/12/19 04:59 Last Admin: 11/13/19 07:55 Dose: 1,000 ml Documented by: [id number] Admin: 11/12/19 09:04 Dose: Not Given Documented by: [id number] Admin: 11/12/19 06:42 Dose: 1,000 ml Documented by: [id number] Hydralazine HCl (Apresoline) 25 mg PO TID [facility] Stop: 12/05/19 08:59 Last Admin: 11/05/19 08:34 Dose: 25 mg Documented by: [id number] Hydralazine HCl (Hydralazine Hcl) 10 mg IV NOW ONE Stop: 11/05/19 09:46 Last Admin: 11/05/19 10:23 Dose: 10 mg Documented by: [id number] Hydralazine HCl (Hydralazine Hcl) 10 mg IV Q8 PRN PRN Reason: SBP> 180 Stop: 12/08/19 10:01 Last Admin: 11/09/19 09:24 Dose: 10 mg Documented by: [id number] Admin: 11/08/19 16:12 Dose: 10 mg Documented by: [id number] Hydralazine HCl (Hydralazine Hcl) 10 mg IV Q8 [facility] Stop: 12/09/19 21:59 Last Admin: 11/10/19 06:02 Dose: 10 mg Documented by: [id number] Admin: 11/09/19 21:30 Dose: 10 mg Documented by: [id number] Hydralazine HCl (Hydralazine Hcl) 20 mg IV Q8 [facility] Stop: 12/10/19 13:59 Last Admin: 11/11/19 06:00 Dose: 20 mg Documented by: [id number] Admin: 11/10/19 22:16 Dose: 20 mg Documented by: [id number] Admin: 11/10/19 14:27 Dose: 20 mg Documented by: [id number] Hydralazine HCl (Hydralazine Hcl) 10 mg IV NOW STA Stop: 11/10/19 10:10 Last Admin: 11/10/19 10:00 Dose: 10 mg Documented by: [id number] Hydralazine HCl (Hydralazine Hcl) 20 mg IV QID [facility] Stop: 12/11/19 12:59 Last Admin: 11/12/19 08:16 Dose: 20 mg Documented by: [id number] Admin: 11/11/19 22:44 Dose: 20 mg Documented by: [id number] Admin: 11/11/19 17:46 Dose: 20 mg Documented by: [id number] Admin: 11/11/19 12:28 Dose: 20 mg Documented by: [id number] Hydralazine HCl (Hydralazine Hcl) 10 mg IV NOW STA Stop: 11/13/19 17:50 Last Admin: 11/13/19 18:10 Dose: 10 mg Documented by: [id number] Hydralazine HCl (Hydralazine Hcl) 10 mg IV NOW STA Stop: 11/13/19 21:39 Last Admin: 11/13/19 22:15 Dose: 10 mg Documented by: [id number] Furosemide 40 mg/ Syringe 4 mls @ 4 mls/min IV ONE STA Stop: 11/05/19 00:03 Last Admin: 11/05/19 00:19 Dose: 4 mls/min Documented by: [id number] Azithromycin 500 mg/ Dextrose 255 mls @ 125 mls/hr IV Q24H [facility] Stop: 11/12/19 00:59 Last Infusion: 11/05/19 02:58 Dose: 0 mls/hr Documented by: [id number] Admin: 11/05/19 00:55 Dose: 125 mls/hr Documented by: [id number] Cefepime HCl 2,000 mg/ Syringe 22.6 mls @ 5.5 mls/min IV TODAY@0030 [facility]; Marita col Stop: 11/05/19 00:35 Last Admin: 11/05/19 00:55 Dose: 5.5 mls/min Documented by: [id number] Vancomycin HCl 1,250 mg/ (Sodium Chloride) 275 mls @ 125 mls/hr IV ONE ONE Stop: 11/05/19 03:41 Last Infusion: 11/05/19 03:59 Dose: 0 mls/hr Documented by: [id number] Admin: 11/05/19 01:55 Dose: 125 mls/hr Documented by: [id number] Heparin Sodium/Dextrose (Heparin Sodium/Dextrose) 25,000 units in 500 mls @ 15 mls/hr IV .Q24H [facility]; Protocol Stop: 12/05/19 01:44 Last Titration: 11/05/19 17:03 Dose: 0 units/hr, 0 mls/hr Documented by: [id number] Cosigned by: [id number] Titration: 11/05/19 13:08 Dose: 750 units/hr, 15 mls/hr Documented by: [id number] Cosigned by: [id number] Titration: 11/05/19 12:38 Dose: 0 units/hr, 0 mls/hr Documented by: [id number] Cosigned by: [id number] Titration: 11/05/19 12:37 Dose: 900 units/hr, 18 mls/hr Documented by: [id number] Cosigned by: [id number] Titration: 11/05/19 07:12 Dose: 920 units/hr, 18.4 mls/hr Documented by: [id number] Cosigned by: [id number] Titration: 11/05/19 05:48 Dose: 920 units/hr, 18.4 mls/hr Documented by: [id number] Cosigned by: [id number] Titration: 11/05/19 01:41 Dose: 0 units/hr, 0 mls/hr Documented by: [id number] Cosigned by: [id number] Admin: 11/05/19 01:40 Dose: 920 units/hr, 18.4 mls/hr Documented by: [id number] Cosigned by: [id number] Famotidine 20 mg/ Syringe 5 mls @ 2.5 mls/min IV DAILY [facility] Stop: 12/05/19 08:59 Last Admin: 11/05/19 08:33 Dose: 2.5 mls/min Documented by: [id number] Cefepime HCl 2,000 mg/ Syringe 20 mls @ 5 mls/min IV Q24H [facility] Stop: 11/14/19 00:00 Last Admin: 11/10/19 12:31 Dose: 5 mls/min Documented by: [id number] Admin: 11/09/19 14:27 Dose: 5 mls/min Documented by: [id number] Admin: 11/08/19 00:01 Dose: 5 mls/min Documented by: [id number] Admin: 11/07/19 00:34 Dose: 5 mls/min Documented by: [id number] Admin: 11/05/19 23:53 Dose: 5 mls/min Documented by: [id number] Furosemide 40 mg/ Syringe 4 mls @ 4 mls/min IV BID [facility] Stop: 12/05/19 12:44 Last Admin: 11/07/19 08:39 Dose: 4 mls/min Documented by: [id number] Admin: 11/06/19 20:36 Dose: 4 mls/min Documented by: [id number] Admin: 11/06/19 08:01 Dose: 4 mls/min Documented by: [id number] Cosigned by: [id number] Admin: 11/05/19 21:00 Dose: 4 mls/min Documented by: [id number] Admin: 11/05/19 13:08 Dose: 4 mls/min Documented by: [id number] Ceftaroline Fosamil 300 mg/ (Sodium Chloride) 260 mls @ 270 mls/hr IV Q12H [facility]; Protocol Stop: 11/12/19 05:59 Last Infusion: 11/09/19 09:37 Dose: 0 mls/hr Documented by: [id number] Admin: 11/09/19 06:11 Dose: 270 mls/hr Documented by: [id number] Infusion: 11/08/19 21:58 Dose: 0 mls/hr Documented by: [id number] Admin: 11/08/19 20:28 Dose: 270 mls/hr Documented by: [id number] Infusion: 11/08/19 07:33 Dose: 0 mls/hr Documented by: [id number] Admin: 11/08/19 06:03 Dose: 270 mls/hr Documented by: [id number] Infusion: 11/07/19 18:12 Dose: 0 mls/hr Documented by: [id number] Admin: 11/07/19 17:01 Dose: 270 mls/hr Documented by: [id number] Infusion: 11/07/19 08:32 Dose: 0 mls/hr Documented by: [id number] Admin: 11/07/19 06:00 Dose: 270 mls/hr Documented by: [id number] Furosemide 40 mg/ Syringe 4 mls @ 4 mls/min IV TODAY@1200 [facility]; Protocol Stop: 11/06/19 17:00 Last Admin: 11/06/19 15:14 Dose: 4 mls/min Documented by: [id number] Potassium Chloride (K Jelani / Wtr) 10 meq in 100 mls @ 100 mls/hr IV Q1H [facility] Stop: 11/07/19 11:59 Last Infusion: 11/07/19 12:49 Dose: 0 mls/hr Documented by: [id number] Admin: 11/07/19 11:41 Dose: 100 mls/hr Documented by: [id number] Infusion: 11/07/19 11:41 Dose: 100 mls/hr Documented by: [id number] Admin: 11/07/19 10:49 Dose: 100 mls/hr Documented by: [id number] Infusion: 11/07/19 10:39 Dose: 100 mls/hr Documented by: [id number] Admin: 11/07/19 09:39 Dose: 100 mls/hr Documented by: [id number] Infusion: 11/07/19 09:39 Dose: 100 mls/hr Documented by: [id number] Admin: 11/07/19 08:39 Dose: 100 mls/hr Documented by: [id number] Potassium Chloride (K Jelani / Wtr) 10 meq in 100 mls @ 100 mls/hr IV Q1H [facility] Stop: 11/08/19 13:14 Last Infusion: 11/08/19 14:49 Dose: 0 mls/hr Documented by: [id number] Admin: 11/08/19 13:27 Dose: 100 mls/hr Documented by: [id number] Infusion: 11/08/19 13:27 Dose: 100 mls/hr Documented by: [id number] Admin: 11/08/19 12:30 Dose: 100 mls/hr Documented by: [id number] Famotidine 20 mg/ Syringe 5 mls @ 2.5 mls/min IV BID [facility] Stop: 12/08/19 22:29 Last Admin: 11/10/19 09:10 Dose: 2.5 mls/min Documented by: [id number] Admin: 11/09/19 21:31 Dose: 2.5 mls/min Documented by: [id number] Admin: 11/09/19 09:24 Dose: 2.5 mls/min Documented by: [id number] Admin: 11/08/19 22:43 Dose: 2.5 mls/min Documented by: [id number] Potassium Chloride/Dextrose/Sod Cl (D5nss + 20meq Kcl) 20 meq in 1,000 mls @ 80 mls/hr IV .[id number] [facility] Stop: 11/09/19 22:44 Last Infusion: 11/10/19 00:35 Dose: 0 mls/hr Documented by: [id number] Infusion: 11/09/19 21:30 Dose: 0 mls/hr Documented by: [id number] Admin: 11/09/19 11:10 Dose: 75 mls/hr Documented by: [id number] Potassium Chloride (K Jelani / Wtr) 10 meq in 100 mls @ 100 mls/hr IV Q1H [facility] Stop: 11/09/19 13:29 Last Infusion: 11/09/19 15:45 Dose: 0 mls/hr Documented by: [id number] Admin: 11/09/19 14:13 Dose: 100 mls/hr Documented by: [id number] Infusion: 11/09/19 13:57 Dose: 100 mls/hr Documented by: [id number] Admin: 11/09/19 12:57 Dose: 100 mls/hr Documented by: [id number] Infusion: 11/09/19 12:10 Dose: 100 mls/hr Documented by: [id number] Admin: 11/09/19 11:10 Dose: 100 mls/hr Documented by: [id number] Potassium Chloride/Dextrose/Sod Cl (D5w And 1/2nss + 20meq Kcl) 20 meq in 1,000 mls @ 80 mls/hr IV .[id number] [facility] Stop: 12/09/19 19:59 Last Infusion: 11/10/19 11:11 Dose: 0 mls/hr Documented by: [id number] Admin: 11/10/19 09:04 Dose: 80 mls/hr Documented by: [id number] Infusion: 11/10/19 09:04 Dose: 80 mls/hr Documented by: [id number] Admin: 11/09/19 21:15 Dose: 80 mls/hr Documented by: [id number] Potassium Chloride (K Jelani / Wtr) 10 meq in 100 mls @ 100 mls/hr IV Q1H [facility] Stop: 11/09/19 23:29 Last Infusion: 11/09/19 23:28 Dose: 0 mls/hr Documented by: [id number] Admin: 11/09/19 22:38 Dose: 100 mls/hr Documented by: [id number] Infusion: 11/09/19 22:38 Dose: 100 mls/hr Documented by: [id number] Admin: 11/09/19 21:43 Dose: 100 mls/hr Documented by: [id number] Acetaminophen (Ofirmev) 1,000 mg in 100 mls @ 400 mls/hr IV Q8H PRN PRN Reason: Pain or Fever Stop: 11/13/19 02:07 Last Infusion: 11/11/19 00:47 Dose: 0 mls/hr Documented by: [id number] Admin: 11/11/19 00:19 Dose: 400 mls/hr Documented by: [id number] Infusion: 11/10/19 02:45 Dose: 0 mls/hr Documented by: [id number] Admin: 11/10/19 02:30 Dose: 400 mls/hr Documented by: [id number] Potassium Chloride 40 meq/ (Dextrose) 1,020 mls @ 125 mls/hr IV .[id number] [facility] Stop: 12/10/19 10:59 Last Infusion: 11/11/19 18:09 Dose: 0 mls/hr Documented by: [id number] Admin: 11/11/19 18:08 Dose: Not Given Documented by: [id number] Admin: 11/11/19 09:50 Dose: 125 mls/hr Documented by: [id number] Infusion: 11/11/19 07:13 Dose: 125 mls/hr Documented by: [id number] Infusion: 11/11/19 06:47 Dose: 125 mls/hr Documented by: [id number] Infusion: 11/11/19 06:00 Dose: 0 mls/hr Documented by: [id number] Admin: 11/10/19 22:16 Dose: 125 mls/hr Documented by: [id number] Infusion: 11/10/19 19:21 Dose: 125 mls/hr Documented by: [id number] Admin: 11/10/19 11:11 Dose: 125 mls/hr Documented by: [id number] Vancomycin HCl 1,500 mg/ (Sodium Chloride) 530 mls @ 200 mls/hr IV TODAY@1730 [facility] Stop: 11/10/19 20:08 Last Infusion: 11/11/19 07:20 Dose: 0 mls/hr Documented by: [id number] Admin: 11/10/19 19:02 Dose: 200 mls/hr Documented by: [id number] Ceftriaxone Sodium 2,000 mg/ (Dextrose) 70 mls @ 140 mls/hr IV Q12@0500,1700 [facility] Stop: 11/20/19 16:59 Last Admin: 11/11/19 18:09 Dose: Not Given Documented by: [id number] Infusion: 11/11/19 05:35 Dose: 0 mls/hr Documented by: [id number] Admin: 11/11/19 05:03 Dose: 140 mls/hr Documented by: [id number] Infusion: 11/10/19 19:05 Dose: 0 mls/hr Documented by: [id number] Admin: 11/10/19 18:33 Dose: 140 mls/hr Documented by: [id number] Ampicillin Sodium 2,000 mg/ (Sodium Chloride) 100 mls @ 200 mls/hr IV Q6H [facility]; Protocol Stop: 11/20/19 17:59 Last Admin: 11/11/19 14:46 Dose: Not Given Documented by: [id number] Infusion: 11/11/19 06:48 Dose: 0 mls/hr Documented by: [id number] Admin: 11/11/19 05:59 Dose: 200 mls/hr Documented by: [id number] Infusion: 11/11/19 01:44 Dose: 0 mls/hr Documented by: [id number] Admin: 11/11/19 01:06 Dose: 200 mls/hr Documented by: [id number] Infusion: 11/10/19 18:37 Dose: 0 mls/hr Documented by: [id number] Admin: 11/10/19 18:00 Dose: 200 mls/hr Documented by: [id number] Potassium Phosphate 15 mmol/ (Sodium Chloride) 255 mls @ 100 mls/hr IV 1030 ONE Stop: 11/11/19 13:02 Last Infusion: 11/11/19 14:47 Dose: 0 mls/hr Documented by: [id number] Admin: 11/11/19 11:13 Dose: 100 mls/hr Documented by: [id number] Furosemide 20 mg/ Syringe 2 mls @ 4 mls/min IV ONE ONE Stop: 11/11/19 18:01 Last Admin: 11/11/19 17:59 Dose: 4 mls/min Documented by: [id number] Labetalol HCl (Normodyne) 10 mg IV NOW STA Stop: 11/05/19 00:47 Last Admin: 11/05/19 00:56 Dose: 10 mg Documented by: [id number] Cosigned by: [id number] Labetalol HCl (Normodyne) 10 mg IV NOW STA Stop: 11/05/19 04:37 Last Admin: 11/05/19 04:41 Dose: 10 mg Documented by: [id number] Cosigned by: [id number] Labetalol HCl (Normodyne) 10 mg IV Q4 PRN PRN Reason: Hypertension Stop: 12/05/19 12:32 Last Admin: 11/12/19 07:41 Dose: 10 mg Documented by: [id number] Cosigned by: [id number] Admin: 11/11/19 16:13 Dose: 10 mg Documented by: [id number] Cosigned by: [id number] Admin: 11/10/19 07:53 Dose: 10 mg Documented by: [id number] Cosigned by: [id number] Admin: 11/10/19 03:24 Dose: 10 mg Documented by: [id number] Cosigned by: [id number] Admin: 11/09/19 15:49 Dose: 10 mg Documented by: [id number] Cosigned by: [id number] Admin: 11/08/19 08:50 Dose: 10 mg Documented by: [id number] Cosigned by: [id number] Admin: 11/06/19 04:11 Dose: 10 mg Documented by: [id number] Cosigned by: [id number] Admin: 11/05/19 17:28 Dose: 10 mg Documented by: [id number] Cosigned by: [id number] Metoprolol Tartrate (Lopressor) 25 mg PO BID REUBEN Stop: 12/05/19 08:59 Last Admin: 11/05/19 08:35 Dose: 25 mg Documented by: [id number] Metoprolol Tartrate (Lopressor) 5 mg IV Q6 REUBEN Stop: 12/08/19 11:59 Last Admin: 11/11/19 17:46 Dose: 5 mg Documented by: [id number] Admin: 11/11/19 11:07 Dose: 5 mg Documented by: [id number] Admin: 11/11/19 06:00 Dose: 5 mg Documented by: [id number] Admin: 11/11/19 00:14 Dose: 5 mg Documented by: [id number] Admin: 11/10/19 18:17 Dose: 5 mg Documented by: [id number] Admin: 11/10/19 11:38 Dose: 5 mg Documented by: [id number] Admin: 11/10/19 06:03 Dose: 5 mg Documented by: [id number] Admin: 11/09/19 23:57 Dose: 5 mg Documented by: [id number] Admin: 11/09/19 18:22 Dose: 5 mg Documented by: [id number] Admin: 11/09/19 11:22 Dose: 5 mg Documented by: [id number] Admin: 11/09/19 06:12 Dose: 5 mg Documented by: [id number] Admin: 11/09/19 00:08 Dose: 5 mg Documented by: [id number] Admin: 11/08/19 19:47 Dose: 5 mg Documented by: [id number] Admin: 11/08/19 11:06 Dose: 5 mg Documented by: [id number] Miscellaneous (Check Clonidine Patch) 1 ea N/A QS [facility] Stop: 12/09/19 15:59 Last Admin: 11/12/19 23:31 Dose: 1 ea Documented by: [id number] Admin: 11/12/19 17:05 Dose: 1 ea Documented by: [id number] Admin: 11/12/19 07:34 Dose: 1 ea Documented by: [id number] Admin: 11/12/19 00:48 Dose: 1 ea Documented by: [id number] Admin: 11/11/19 16:13 Dose: 1 ea Documented by: [id number] Admin: 11/11/19 08:43 Dose: 1 ea Documented by: [id number] Admin: 11/11/19 00:15 Dose: 1 ea Documented by: [id number] Admin: 11/10/19 18:07 Dose: 1 ea Documented by: [id number] Admin: 11/10/19 07:45 Dose: 1 ea Documented by: [id number] Admin: 11/09/19 23:57 Dose: Not Given Documented by: [id number] Admin: 11/09/19 16:28 Dose: 1 ea Documented by: [id number] Ondansetron HCl (Zofran) Confirm Administered Dose 4 mg .ROUTE .STK-MED ONE Stop: 11/05/19 08:45 Last Admin: 11/05/19 08:45 Dose: 4 mg Documented by: [id number] Ondansetron HCl (Zofran) 4 mg IV Q6H PRN PRN Reason: Nausea Stop: 12/05/19 12:32 Last Admin: 11/06/19 07:59 Dose: 4 mg Documented by: [id number] Cosigned by: [id number] Oseltamivir Phosphate (Tamiflu) 30 mg PO DAILY [facility]; Protocol Stop: 11/14/19 09:01 Last Admin: 11/13/19 07:56 Dose: 30 mg Documented by: [id number] Admin: 11/12/19 13:33 Dose: 30 mg Documented by: [id number] Admin: 11/11/19 12:39 Dose: Not Given Documented by: [id number] Admin: 11/11/19 12:16 Dose: 30 mg Documented by: [id number] Admin: 11/10/19 17:55 Dose: 30 mg Documented by: [id number] Admin: 11/10/19 02:31 Dose: Not Given Documented by: [id number] Perflutren Lipid Microsphere (Definity) 2 ml IV ONCE ONE Stop: 11/05/19 15:27 Last Admin: 11/05/19 08:29 Dose: 2 ml Documented by: [id number] Potassium Chloride (Klor-Con M20) 60 meq PO ONE ONE Stop: 11/06/19 09:16 Last Admin: 11/06/19 09:23 Dose: 60 meq Documented by: [id number] Potassium Chloride (Gladys Ciel Elix) 40 meq PO NOW STA Stop: 11/09/19 19:43 Last Admin: 11/10/19 00:37 Dose: Not Given Documented by: [id number] Sterile Water (Tube Feeding Water Flush) 125 ea GT Q6 REUBEN Stop: 12/11/19 19:44 Last Admin: 11/13/19 12:31 Dose: 125 ea Documented by: [id number] Admin: 11/13/19 05:33 Dose: 125 ea Documented by: [id number] Admin: 11/12/19 23:32 Dose: 125 ea Documented by: [id number] Admin: 11/12/19 17:31 Dose: 125 ea Documented by: [id number] Admin: 11/12/19 12:08 Dose: 125 ea Documented by: [id number] Admin: 11/12/19 07:28 Dose: Not Given Documented by: [id number] Admin: 11/12/19 07:27 Dose: Not Given Documented by: [id number] Admin: 11/12/19 06:42 Dose: 125 ea Documented by: [id number] Description This is a 21 electrode EEG with a single channel dedicated to limited EKG. The electrodes were placed in accordance with the International 10-20 system. This EEG was done as a bedside recording and is of excellent technical quality with few or no muscle movement artifact. Unfortunately video analysis of patient movement and behavior could not be viewed due to computer related issues. The current tracing is much improved compared to the prior study and now reveals evidence for a background alpha rhythm and theta rhythm ranging between a low of 7 Hz and a high of 9 Hz and maximum posterior head regions. Central mid freque ncy modest voltage theta activity is seen with very little superimposed waveforms in the delta range and without any triphasic wave components. Beta activity seen bifrontally. Photic stimulation provokes a modest driving response without a photo myogenic a photoparoxysmal component No time during the current tracing is or evidence for focal sharp waves, bikes, spike and wave activity or any potentially epileptogenic activity and specifically no sharp wave activity is seen overlying the right temporal region Interpretation This EEG reveals at most minor abnormalities consisting of slight slowing of the background alpha rhythm but in many portions of the studies review alpha rhythm is. Slow but in the normal range at 9 Hz. There is no evidence for the previously noted generalized slowing, triphasic waves or potential right temporal sharp waves Clinical Correlation This EEG is most markedly abnormal revealing evidence for a minimal generalized encephalopathy without evidence for any triphasic waves or any or potentially epileptogenic patterns. Repeat recording on an outpatient basis with more prolonged tracing and asleep recording is suggested and conceivably an ambulatory study would also be of benefit Addy Quinones MD
--- NOTE | 2019-11-14 12:29 | Neurology Progress Note ---
Date of Service November 14, 2019 Assessment & Plan (1) Encephalopathy: 1. daughter is primary contact 2. correcting lyte abnormalities 3. CHF and infiltrates continue to monitor and treat 4. dementia /delirium? in setting of infection? unclear what caused event 5. continue aspirin 81 mg daily once able to tolerate orals 6. HTN- slowly correct 7. PT/OT for discharge needs 8. nutrition - would continue thiamine and swallowing study advance as tolerated 9. EEG- r/o subclinical seizure- repeated EEG with no seizure focus- will see her back in the office for a 48-72 hour EEG to r/o seizure focus will be available for questions concerns. follow up neurology 4-6 weeks after discharge hospital/rehab [facility] PAC schedule (2) Hypertension: (3) History of CVA (cerebrovascular accident): Admission and Anticipated Discharge Date Admission Date: November 04, 2019 Supervising Physician Co-Signing Physician Notes I have seen and discussed above patient with Dr Addy Quinones, neurologI attempted to see Ms. Davies today but she was attending to some bathroom duties I spent some time talking with her daughter and reviewing her case with DIOMEDES Zhao. I reviewed her EEG today which is essentially normal and was done yesterday and is certainly much improved from the study that was done several days ago during her unresponsive. And revealed generalized slowing, some triphasic waves, and potentially epileptogenic spikelike discharges of low frequency emanating from the right hemisphere where she has had a prior CVA back in 2017 The current study shows none of this and clinically according to her daughter she is back to her near baseline Our plans are to sign off the case at this time and arrange for her to be seen on an outpatient basis and to have an outpatient EEG done during wakefulness and sleep and consider a 48 to 72-hour ambulatory study I will try to look at her tomorrow when I am in for rounds and may even try again this afternoon before I leave the hospital Addy Quinones MD Bennett Gonzalez is a 74 year old female with a PMH- anemia chronic disease, CHF, C. difficile colitis, hemorrhagic shock, GERD, hypertension, lupus, history of CVA, CKD stage IV and Carolis disease. She presented to [facility] with severe abdominal pain, nausea, dry heaving, and shortness of breath. Her CXR suggestive of right upper lobe pneumonia, for which she received vancomycin IV, cefepime IV and levofloxacin IV. EKG showed suggested ST depressions/ischemia in leads II, III and aVF and leads V4 through V6, and troponin which was initially 0.062 had a mild increase to 0.086. She was also found to be hypoxic, with pulse ox 82% on room air, and was placed on Vapotherm with improvement to 92%. She was found to be mildly anemic with a hemoglobin of 7.7-8.3 range, and was being transfused 1 unit PRBCs. She is awake and speaking today and oriented to self place and date. She states she had a bad fall in her bathroom and she hurt her leg. she is sitting up in bed and eating lunch. Her daughter is not currently in the room. denies CP, SOB, abdominal pain, N, V, +cough and complaints of left leg pain Physical Exam Physical Exam: Gen:alert NAD lungs normal respiratory effort CV RRR oriented to hospital self 2020 hand steward/stewardess lounge biceps triceps right 5/5 left 4+/5 plantar flex ext 5/5 bilaterally Results & Data ([facility]) Vital Signs (Past 12 Hours) Vital Signs Temp Pulse Pulse Resp BP Pulse Ox 11/14/19 11:40 36.6 C 64 19 172/68 H 98 11/14/19 08:00 69 11/14/19 07:02 36.4 C L 71 16 159/71 H 97 11/14/19 03:18 37.0 C 66 18 176/62 H 95 Laboratory Results Abnormal lab results 11/13/19 11/14/19 11/14/19 Range/Units 18:35 06:30 06:30 WBC 12.20 H (4.8-10.8) K/uL RBC 3.21 L (4.2-5.4) M/uL Hgb 9.3 L (12.0-16.0) g/dL Hct 29.1 L (37-47) % RDW Std Deviation 58.6 H (36.4-46.3) fL RDW Coeff of Aurelia 17.7 H (11.5-14.5) % Plt Count 428 H (130-400) K/uL Chloride 114 H (98-107) mmol/L BUN 63 H (7-18) mg/dl Creatinine 2.38 H (0.6-1.2) mg/dl BUN/Creatinine Ratio 26.3 H (10-20) Glucose 103 H (70-99) mg/dl AST 112 H (15-37) U/L Alkaline Phosphatase 309 H (45-117) U/L Total Protein 6.3 L (6.4-8.2) gm/dl Albumin 1.6 L (3.4-5.0) gm/dl Globulin 4.7 H (2.5-4.0) gm/dl Albumin/Globulin Ratio 0.3 L (0.9-2) Stl C. diff Tox B Gene Positive Cdiff Gene H (Neg) Diagnostic Findings EEG is most markedly abnormal revealing evidence for a minimal generalized encephalopathy without evidence for any triphasic waves or any or potentially epileptogenic patterns. Repeat recording on an outpatient basis with more prolonged tracing and asleep recording is suggested and conceivably an ambulatory study would also be of benefit liver US- Surgically absent gallbladder No ductal dilatation Nonspecific increase in hepatic echogenicity, a nonspecific finding most often seen in hepatic steatosis. Hepatitis and infiltrative processes can appear similar. (1) Hypertension Hypertension type: essential hypertension Qualified Code(s): I10 - Essential (primary) hypertension
--- NOTE | 2019-11-14 17:20 | Nephrology Progress Note ---
Date of Service November 14, 2019 Assessment & Plan (1) Acute kidney injury superimposed on CKD: Patient with acute kidney injury on CKD. Baseline creatinine of 1.8-2. Her creatinine is today 2.4, slowly worsening past 48 hours. Nonoliguric. Etiology of worsening renal function is prerenal versus less likely ischemic ATN in setting of poor p.o. intake, recent encephalopathy, pneumonia, influenza. -cont gray -daily BMP. Avoid nephrotoxins such as contrast -ordered uacm; note increasing WBC -if renal function worsens further may need to resume IV fluids (2) Hypertension: Blood pressure is above target but given intermittent confusion, recent encephalopathy and question of CVA, would avoid lowering the blood pressure too much. Goal systolic of 150-160. -continue po hydralazine, amlodipine, catapres, metoprolol -hold lasix -continue prn hydralazine (3) Encephalopathy: Likely metabolic encephalopathy in setting of infection. started empiric abtx for bacterial meningitis 11/10 but these are now stopped. This likely uremia given BUN of only 54 in a patient with chronic CKD stage IV. Avoid opioids or psychoactive medications. >>report from hospitalist pt made sudden and dramatic recovery in [place] (4) Hypokalemia: Patient had ongoing hypokalemia and had required frequent K riders and other aggressive K resuscitation. Has not needed supplementation for several days now but will continue to monitor -recheck bmp in am Admission and Anticipated Discharge Date Admission Date: November 04, 2019 Subjective Seen on rounds this afternoon at approximately 1430. Patient is exhausted. she was dozing on and off during evaluation. daughter at bedside; ongoing poor po. intermittent confusion. no sob. no voiding complaints. Review of Systems Review of Systems: ROS limited by pt confusion, fatigue Physical Exam Constitutional: well developed and + frail appearing; no acute distress (sitting up in bed on RA) Eyes: EOM intact bilaterally ENMT: Ears: no external ear abnormality Nose: no external nose abnormality Mouth: + dry oral mucous membranes Neck: no nuchal rigidity Respiratory: normal respiratory effort; no respiratory distress and no cough Auscultation: + diminished lung sounds (on anterior exam) Cardiovascular: Rate/Rhythm: regular rate and regular rhythm Heart Sounds: + murmur Extremities: no edema Gastrointestinal (Abdomen): Inspection/Auscultation: normal bowel sounds Percussion/Palpation: + abdomen tender (grimaces w/ moderate or mild palpation BLUQ and epigastrium) and abdomen soft Musculoskeletal: Extremities: strength 5/5 throughout Skin: no rashes, warm and dry (except some petechiae/patches forearmL) Neurologic: Speech / Cognition: + abnormal speech (no words, does make sounds) Genitourinary: Gray with ample light yellow urine Results & Data ([facility]) Vital Signs (Past 12 Hours) Vital Signs Temp Pulse Pulse Resp BP Pulse Ox 11/14/19 16:26 70 160/67 H 98 11/14/19 15:15 36.9 C 69 20 137/59 L 99 11/14/19 11:40 36.6 C 64 19 172/68 H 98 11/14/19 08:00 69 11/14/19 07:02 36.4 C L 71 16 159/71 H 97 Laboratory Results 11/14/19 06:30 11/14/19 06:30 (1) Hypertension Hypertension type: essential hypertension Qualified Code(s): I10 - Essential (primary) hypertension
[2019-11-14] MEDS ORDERED: SODIUM CHLOR 0.45% + 20MEQ KCL 20 MEQ/1,000 ML BAG IV ONE (22:20)
[2019-11-15] MEDS: NITROGLYCERIN 2% OINTMENT 30GM TUBE EXT SCH ×4 (00:09→18:34)
[2019-11-15] MEDS: HEPARIN SOD 5,000 UNIT/0.5 ML VIAL SQ SCH (02:39)
[2019-11-15] MEDS: DOXYCYCLINE HYCLATE 100 MG in DEXTROSE 5% 100 ML IV SCH ×2 (05:58→18:33)
[2019-11-15] MEDS: cloNIDine HCL 0.1 MG TAB PO SCH ×2 (06:18→18:51)
[2019-11-15 06:38] LABS: Hematocrit (blood only) 23.2 % (37-47); Hemoglobin 7.5 g/dL (12.0-16.0); Mean Corpuscular Hemoglobin 29.1 pg (25-34); Mean Corpuscular Hgb Conc 32.3 g/dL (32-36); Mean Corpuscular Volume 89.9 fL (80-100); Mean Platelet Volume 10.6 fL (7.4-10.4); Platelet Count 374 K/uL (130-400); RDW Standard Deviation 59.1 fL (36.4-46.3); Red Blood Count 2.58 M/uL (4.2-5.4); White Blood Count 10.55 K/uL (4.8-10.8)
[2019-11-15 07:02] LABS: BUN Creatinine Ratio 23.4 (10-20); Calcium 8.3 mg/dl (8.5-10.1); Creatinine Clr Calc Pharmacy 15.5 ml/min; Est GFR (Non-African American) 15.5; Potassium 3.3 mmol/L (3.5-5.1)
--- NOTE | 2019-11-15 07:34 | Hospitalist Progress Note ---
Date of Service November 15, 2019 Assessment & Plan (1) Acute hypoxemic respiratory failure: 2/2 Flu A and bilateral pneumonia. Continue on Tamiflu and Rocephin/Doxy IV. Hypoxia has resolved and she is doing well clinically. Recommend repeat CXR as outpatient in 4 weeks to ensure complete resolution of pneumonia. (2) Pneumonia: Continue Abx for now (3) Influenza A: tamiflu, renal dosage, for 5 days. (4) Metabolic encephalopathy: resolved (5) Acute kidney injury superimposed on chronic kidney disease: Likely related to ATN after insult from pneumonia and flu per nephrology. Around her baseline, holding lasix. (6) Elevated LFTs: uncertain cause, ?tube feeds which have now stopped. She was on PPN for a few days, also. Trend in am. Liver US ordered. (7) HTN (hypertension): Uncontrolled, may have some rebound HTN after temporarily being off her clonidine. Cont taking home medications including Norvasc 10, clonidine 0.1 BID (stopped weekly patch that was being given). Cont PRN hydralazine. Low salt diet. (8) Anemia: Likely multifactorial including chronic disease, CKD Stage IV and frequent phlebotomy over multiple hospitalizations reported in the past couple of months. No transfusion indicated at this time. (9) Acute diastolic heart failure: Initially was fluid overloaded. Lasix on hold for now. Examines as euvolemic. (10) Encephalopathy: acute metabolic encephalopathy-resolved. Will remove NGT at this time as she was starting to swallow well today. Speech path is following. (11) CKD (chronic kidney disease), stage IV: At baseline, renally dose meds as appropriate. (12) Malnutrition: was given enteral feedings while unresponsive for a couple of days. CorSafe is out, tube feeds have been stopped. (13) Generalized weakness: may require rehab, cont with PT and OT. (14) DVT prophylaxis: Heparin Conditional Code Dispo-uncertain at this time. Labs Checked ROS-No Headache, No Visual Changes, No Nausea, No Vomiting, No Fever, No Chills, No Neck Pain or Stiffness, No Chest Pain, No Palpitations, No SOB, No ALDRIDGE, No Cough, No Sputum, No Wheezing, No Abdominal Pain, No Diarrhea, No Hematemesis, No Hemoptysis, No Unexpected Weight Loss, No Flank pain, No Melena, No Hematochezia, No Frequency, No Urgency, No Burning, No Hematuria, No Rashes, No Diaphoresis. Appetite is Normal, +Nasal Bleed from DuoTube removal Physical Exam Gen-AAO x 3, NAD, Afebrile, Nasal Bleeding stopped Head-NCAT, EOMI, PERRLA, Anicteric Sclera, No Posterior Pharyngeal Erythema Neck-Supple, No JVD, No Thyromegaly, No Masses, No LAD, No Bruits Lungs-Clear to Auscultation Bilaterally, No Rales, No Rhonchi, No Wheezing, No Crepitus Chest-No S4, +S1, +S2, No S3, No Murmurs, No Rubs, No Gallops, No Ectopy Abdomen-Soft, Bowel Sounds Present, Non Tender, Non Distended, No Hepatomegaly, No Splenomegaly, No Palpable Masses, No Rebound, No Rigidity, No Guarding Musculoskeletal-Full Range of Motion Bilaterally, No CVAT Extremities-No Cyanosis, No Clubbing, No Edema Nuero-Cranial Nerves II-XII grossly intact, Motor WNL, DTRs WNL, Strength WNL, Non Focal Psych-Normal Mood Admission and Anticipated Discharge Date Admission Date: November 04, 2019 Results & Data ([facility]) Vital Signs (Past 12 Hours) Vital Signs Temp Pulse Pulse Resp BP Pulse Ox 11/15/19 02:34 36.4 C L 67 16 173/64 H 96 11/14/19 23:55 36.8 C 70 16 158/58 H 96 11/14/19 23:34 67 (1) Pneumonia Pneumonia type: due to unspecified organism Laterality: right Lung location: upper lobe of lung Qualified Code(s): J18.9 - Pneumonia, unspecified organism
[2019-11-15] MEDS: HydrALAZINE TAB 50 MG TAB PO SCH ×4 (08:58→20:31)
[2019-11-15] MEDS: METOPROLOL TARTRATE 50 MG TAB PO SCH ×2 (08:58→20:31)
[2019-11-15] MEDS: LACTOBACILLUS ACIDOPHILUS (FLORANEX) TAB PO SCH ×3 (08:59→18:23)
[2019-11-15] MEDS: AMLODIPINE BESYLATE 5 MG TAB PO SCH (08:59)
[2019-11-15] MEDS: ATORVASTATIN 40 MG TAB PO SCH (09:00)
[2019-11-15] MEDS: FAMOTIDINE 20 MG TAB PO SCH (09:01)
[2019-11-15] MEDS: POTASSIUM CHLORIDE / WTR 10 MEQ/100 ML PLCT IV SCH ×3 (09:01→12:26)
[2019-11-15] MEDS: cefTRIAXone SODIUM 2,000 MG in DEXTROSE 5% 50 ML IV SCH (09:10)
--- NOTE | 2019-11-15 11:58 | Communication Note ---
Date of Service: November 15, 2019 I did see Mrs. Davies this morning reviewed her history interviewed her examined her and pleased to report that she in my opinion is probably back to what I would consider her baseline. She is alert oriented in 3 spheres can tell me all about her primary care physician in [place], her place of residence in the [facility] which happens to be an extended care facility but is a little vague about the recent hospital course during which she was encephalopathic and the EEG did show some evidence suggestive of triphasic wave activity and potent ial epileptiform discharges in the right hemisphere The last EEG however is completely normal to at most mildly slow and there is nothing based on the history or the EEG that in my opinion would warrant a trial of anticonvulsant therapy unless her clinical history would change 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 and certainly this could have served as a potential seizure focus but there is nothing significant on exam and the sharp waves were very minimal on the abnormal tracing and were not evident on the second recording so at this point since she is probably can be discharged tomorrow, I would suggest that she have another EEG scheduled in [facility] which is much closer to her place of residence and that the results be sent to [facility]psy Nazario and myself for review and that the patient is at some point in the next 4 to 5 weeks be transported in [place] for reassessment and a final judgment about whether anticonvulsant therapy is appropriate We will try to arrange for the study to be done and to follow-up on Sunday when we return to the office For now neurology is going to sign off the case Addy Quinones MD
[2019-11-15 13:17] LABS: Hematocrit (blood only) 23.1 % (37-47); Hemoglobin 7.2 g/dL (12.0-16.0)
[2019-11-15 19:29] LABS: Hematocrit (blood only) 26.1 % (37-47); Hemoglobin 8.3 g/dL (12.0-16.0)
[2019-11-16] MEDS: NITROGLYCERIN 2% OINTMENT 30GM TUBE EXT SCH ×4 (01:11→17:59)
[2019-11-16 01:24] LABS: Hematocrit (blood only) 21.6 % (37-47)
[2019-11-16] MEDS: DOXYCYCLINE HYCLATE 100 MG in DEXTROSE 5% 100 ML IV SCH ×2 (06:27→17:56)
[2019-11-16] MEDS: cloNIDine HCL 0.1 MG TAB PO SCH ×2 (06:35→18:53)
[2019-11-16] MEDS: METOPROLOL TARTRATE 25 MG TAB PO SCH ×2 (06:35→22:09)
[2019-11-16 06:57] LABS: Hematocrit (blood only) 25.8 % (37-47); Mean Corpuscular Hemoglobin 28.6 pg (25-34); Mean Corpuscular Volume 92.1 fL (80-100); Mean Platelet Volume 10.8 fL (7.4-10.4); Platelet Count 455 K/uL (130-400); RDW Coefficient of Variation 18.1 % (11.5-14.5); RDW Standard Deviation 60.7 fL (36.4-46.3); White Blood Count 10.93 K/uL (4.8-10.8)
[2019-11-16 07:57] LABS: BUN Creatinine Ratio 20.5 (10-20); Calcium 8.9 mg/dl (8.5-10.1); Est GFR (African American) 15.3; Est GFR (Non-African American) 13.2; Potassium 4.3 mmol/L (3.5-5.1)
[2019-11-16] MEDS: ATORVASTATIN 40 MG TAB PO SCH (08:13)
[2019-11-16] MEDS: HydrALAZINE TAB 50 MG TAB PO SCH ×4 (08:13→22:09)
[2019-11-16] MEDS: FAMOTIDINE 20 MG TAB PO SCH (08:14)
[2019-11-16] MEDS: LACTOBACILLUS ACIDOPHILUS (FLORANEX) TAB PO SCH ×3 (08:14→17:59)
[2019-11-16] MEDS: AMLODIPINE BESYLATE 5 MG TAB PO SCH (08:15)
--- NOTE | 2019-11-16 08:28 | Hospitalist Progress Note ---
Date of Service November 16, 2019 Assessment & Plan (1) Acute hypoxemic respiratory failure: 2/2 Flu A and bilateral pneumonia. S/P Tamiflu and on Rocephin/Doxy IV. Hypoxia has resolved and she is doing well clinically. Recommend repeat CXR as outpatient (2) Pneumonia: Continue Abx for now (3) Influenza A: Tamiflu completed (4) Metabolic encephalopathy: resolved (5) Acute kidney injury superimposed on chronic kidney disease: Likely related to ATN after insult from pneumonia and flu per nephrology. Around her baseline, holding lasix. (6) Elevated LFTs: uncertain cause, ?tube feeds which have now stopped. She was on PPN for a few days, also. Trend in am. Liver US ordered. (7) HTN (hypertension): Uncontrolled, may have some rebound HTN after temporarily being off her clonidine. Cont taking home medications including Norvasc 10, clonidine 0.1 BID (stopped weekly patch that was being given). Cont PRN hydralazine. Low salt diet. (8) Anemia: Likely multifactorial including chronic disease, CKD Stage IV and frequent phlebotomy over multiple hospitalizations reported in the past couple of months. No transfusion indicated at this time. Hb rising now after SC Heparin ASA and Plavix held (9) Acute diastolic heart failure: Initially was fluid overloaded. (10) Encephalopathy: acute metabolic encephalopathy-resolved. Advance diet (11) CKD (chronic kidney disease), stage IV: At baseline, renally dose meds as appropriate. (12) Malnutrition: was given enteral feedings while unresponsive for a couple of days. CorSafe is out, tube feeds have been stopped. (13) Generalized weakness: may require rehab, cont with PT and OT. (14) DVT prophylaxis: Hold Heparin Conditional Code Dispo-Rehab or SNF 2-3 days. Labs Checked ROS-No Headache, No Visual Changes, No Nausea, No Vomiting, No Fever, No Chills, No Neck Pain or Stiffness, No Chest Pain, No Palpitations, No SOB, No ALDRIDGE, No Cough, No Sputum, No Wheezing, No Abdominal Pain, No Diarrhea, No Hematemesis, No Hemoptysis, No Unexpected Weight Loss, No Flank pain, No Melena, No Hematochezia, No Frequency, No Urgency, No Burning, No Hematuria, No Rashes, No Diaphoresis. Appetite is Normal Looks better each day Physical Exam Gen-AAO x 3, NAD, Afebrile, Nasal Bleeding stopped Head-NCAT, EOMI, PERRLA, Anicteric Sclera, No Posterior Pharyngeal Erythema Neck-Supple, No JVD, No Thyromegaly, No Masses, No LAD, No Bruits Lungs-Clear to Auscultation Bilaterally, No Rales, No Rhonchi, No Wheezing, No Crepitus Chest-No S4, +S1, +S2, No S3, No Murmurs, No Rubs, No Gallops, No Ectopy Abdomen-Soft, Bowel Sounds Present, Non Tender, Non Distended, No Hepatomegaly, No Splenomegaly, No Palpable Masses, No Rebound, No Rigidity, No Guarding Musculoskeletal-Full Range of Motion Bilaterally, No CVAT Extremities-No Cyanosis, No Clubbing, No Edema Nuero-Cranial Nerves II-XII grossly intact, Motor WNL, DTRs WNL, Strength WNL, Non Focal Psych-Normal Mood Admission and Anticipated Discharge Date Admission Date: November 04, 2019 Results & Data ([place]) Vital Signs (Past 12 Hours) Vital Signs Temp Pulse Resp BP Pulse Ox 11/16/19 07:01 36.8 C 66 16 164/64 H 98 11/16/19 04:00 36.8 C 84 16 175/64 H 98 11/15/19 23:42 36.8 C 65 16 155/58 H 97 (1) Pneumonia Pneumonia type: due to unspecified organism Laterality: right Lung location: upper lobe of lung Qualified Code(s): J18.9 - Pneumonia, unspecified organism
[2019-11-16] MEDS: cefTRIAXone SODIUM 2,000 MG in DEXTROSE 5% 50 ML IV SCH (09:05)
--- NOTE | 2019-11-16 09:58 | Gastrointestinal Consultation ---
Date of Consultation November 16, 2019 Assessment & Plan (1) Elevated LFTs: 74 yo female with influenza A and pneumonia noted to have elevated AP and transaminases which I suspect are related to the influenza +/- medications. - Follow daily LFTs. (2) Influenza A: (3) Acute diastolic heart failure: (4) Acute diastolic CHF (congestive heart failure): History of Present Illness Reason for Consultation: elevated LFT Attending Physician: Moises Lora DO History of Present Illness 74 yo female with multiple medical problems transferred here from [place] on 11/04 (was previously at [facility] for 2 weeks in September) with respiratory distress and weakness, ultimately diagnosed with influenza A and pneumonia. She has rece ived Tamiflu as well as rocephin and doxycycline. SHe was on tube feeds for a period of time as well. She is noted to have mildly elevated transaminases and AP with normal bili which have increased over the last few days. US was done and shows absent GB, normal bile ducts, and mild fatty liver. AST 74 161 112 ALT 28 50 47 AP 235 329 309 TB 0.4 Allergies Allergy/AdvReac Type Severity Reaction Status Date / Time Iodinated Contrast Media Allergy Severe HIVES/DIFFICULTY Verified 10/06/19 13:33 SWALLOWING Home Medications Home Medications Medication Instructions Recorded Confirmed Type aspirin 81 mg PO HS 08/19/18 11/05/19 History clopidogrel 75 mg PO QAM 08/19/18 11/05/19 History cyanocobalamin (vitamin B-12) 1,000 mcg PO QAM 08/19/18 11/05/19 History amlodipine 10 mg PO DAILY 08/30/19 11/05/19 History sertraline 50 mg PO DAILY 08/30/19 11/05/19 History Lactobacillus acidoph-L.bulgar 1 tab PO TIDM 10 Days #30 tab 10/01/19 11/05/19 Rx ondansetron HCl 4 mg PO Q8 PRN 10/10/19 11/05/19 History ranitidine HCl 150 mg PO BID 10/10/19 11/05/19 History clonidine HCl 0.1 mg PO BID 30 Days #60 tab 10/13/19 11/05/19 Rx metoprolol tartrate 25 mg PO BID 30 Days #60 tab 10/13/19 11/05/19 Rx hydralazine 25 mg PO TID 11/05/19 11/05/19 History vancomycin PO Q6 11/05/19 History Patient History Medical History Atrophy of left kidney C. difficile colitis (Acute) Cancer MULTIPLE SKIN CANCER REMOVALS (RADIATION FOR SKIN CANCER/UPPER LIP) Carolis disease (Chronic) Chronic diastolic CHF (congestive heart failure) CKD (chronic kidney disease), stage IV (Chronic) Endometriosis GERD (gastroesophageal reflux disease) (Chronic) History of CVA (cerebrovascular accident) (Chronic) 2016, no residual deficits Hyperlipidemia Hypertension (Chronic) Lupus (Chronic) Migraine Mood disorder Osteoarthritis Surgical History History of colon resection (Chronic) Aug 05 2019 at [facility]. Patient stated she had surgery early in the morning and didn't remember waking up until 1 AM. She is unaware of how long the procedure was and she was not intubated post-op. History of colonoscopy History of esophagogastroduodenoscopy (EGD) History of tonsillectomy History of tooth extraction History of total abdominal hysterectomy and bilateral salpingo-oophorectomy S/P laparoscopic cholecystectomy (09/09/19) Laparoscopic Cholecystectomy Dr. 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 Runner Required: No Beliefs That Will Affect Care: None marital status: / Current Living Situation: Alone Other Information That Helps Us Care for You: No Feels Safe at Home: Yes Safety Concerns: Feels Safe At This Time Smoking Status: Never smoker Second Hand Exposure: No ; Hx Alcohol Use: No Hx Substance Use: No Review of Systems Review of Systems: All systems reviewed & are unremarkable except as noted in HPI & below Physical Exam Constitutional: WD/WN, vitals as above Respiratory: normal respiratory effort, lungs clear to auscultation Cardiovascular: RRR, no murmur, no edema Gastrointestinal (Abdomen): normal bowel sounds, soft, nontender, no hepatosplenomegaly Results & Data ([facility]) Vital Signs (Past 12 Hours) Vital Signs Temp Pulse Resp BP Pulse Ox 11/16/19 07:01 36.8 C 66 16 164/64 H 98 11/16/19 04:00 36.8 C 84 16 175/64 H 98 11/15/19 23:42 36.8 C 65 16 155/58 H 97
--- NOTE | 2019-11-16 11:37 | Progress Notes ---
DATE: 11/16/2019 SUBJECTIVE: The patient seems to be getting worse from renal standpoint. Creatinine is getting worse. Her urine output is decreasing in the last few days. LFTs also getting worse. OBJECTIVE: VITAL SIGNS: Blood pressure 164/64, afebrile, 98% on room air. HEENT: Mucous membranes moist. NECK: Supple. No jugular venous distention. CHEST: Bilateral occasional rhonchi. CARDIOVASCULAR: S1 and S2, regular. ABDOMEN: Soft, nontender, obese. EXTREMITIES: Shows trace edema. LABORATORY TESTS: Reviewed. Creatinine is now rising for the last 3 days, it is up to 3.24 with a BUN of 67. Electrolytes otherwise unremarkable. Hemoglobin is 8.0. ASSESSMENT AND PLAN: A 72-year-old female with acute on chronic renal failure in the setting of influenza A. Acute renal failure. Creatinine was at baseline for many days, but now for the last few days, it is declining again with the decreasing urine output. Given this, I would like to give some gentle hydration at least for 1 day with half normal saline at 50 mL per hour. Continue to hold Lasix. Avoid nephrotoxic agent. Also repeat UA and total CK as rhabdomyolysis can happen with influenza. MTDD
[2019-11-16] MEDS: SODIUM CHLORIDE 0.45 % 1,000 ML IV SCH (12:56)
[2019-11-17] MEDS: NITROGLYCERIN 2% OINTMENT 30GM TUBE EXT SCH ×3 (01:06→13:41)
[2019-11-17] MEDS: cloNIDine HCL 0.1 MG TAB PO SCH ×2 (05:52→17:46)
[2019-11-17] MEDS: SODIUM CHLORIDE 0.45 % 1,000 ML IV SCH ×2 (06:02→09:50)
[2019-11-17] MEDS: DOXYCYCLINE HYCLATE 100 MG in DEXTROSE 5% 100 ML IV SCH ×2 (06:02→17:48)
[2019-11-17 06:12] LABS: Hematocrit (blood only) 21.5 % (37-47); Hemoglobin 6.8 g/dL (12.0-16.0); Mean Corpuscular Hemoglobin 28.9 pg (25-34); Mean Corpuscular Hgb Conc 31.6 g/dL (32-36); Mean Corpuscular Volume 91.5 fL (80-100); Mean Platelet Volume 10.4 fL (7.4-10.4); Platelet Count 422 K/uL (130-400); RDW Coefficient of Variation 18.2 % (11.5-14.5); RDW Standard Deviation 61.1 fL (36.4-46.3); Red Blood Count 2.35 M/uL (4.2-5.4); White Blood Count 10.29 K/uL (4.8-10.8)
[2019-11-17 06:32] LABS: BUN Creatinine Ratio 18.2 (10-20); Calcium 8.6 mg/dl (8.5-10.1); Creatinine Clr Calc Pharmacy 12.6 ml/min; Est GFR (African American) 13.4; Est GFR (Non-African American) 11.5; Potassium 4.2 mmol/L (3.5-5.1)
--- NOTE | 2019-11-17 08:10 | Hospitalist Progress Note ---
Date of Service November 17, 2019 Assessment & Plan (1) Acute hypoxemic respiratory failure: 2/ Flu A and bilateral pneumonia. S/P Tamiflu and on Rocephin/Doxy IV Stop 11/17. Hypoxia has resolved and she is doing well clinically. Recommend repeat CXR as outpatient (2) Pneumonia: Continue Abx for now until 11/17 (3) Influenza A: Tamiflu completed (4) Metabolic encephalopathy: resolved (5) Acute kidney injury superimposed on chronic kidney disease: Likely related to ATN after insult from pneumonia and flu per nephrology. Around her baseline, holding lasix. (6) Elevated LFTs: uncertain cause, ?tube feeds which have now stopped. She was on PPN for a few days, also. Trend in am. Liver US ordered. GI on case, Didn't comment on Alk Phos elevation (7) HTN (hypertension): Better controlled (8) Anemia: Likely multifactorial including chronic disease, CKD Stage IV and frequent phlebotomy over multiple hospitalizations reported in the past couple of months. May need transfusion today. Hb 6.8 this am, ASA, Plavix, and SC Heparin held, Stat H&H if LT 7 transfuse 1 unit (9) Acute diastolic heart failure: Initially was fluid overloaded. (10) Encephalopathy: acute metabolic encephalopathy-resolved. Advance diet (11) CKD (chronic kidney disease), stage IV: Renal on case-Gentle IVFs, Possible Blood (12) Malnutrition: was given enteral feedings while unresponsive for a couple of days. CorSafe is out, tube feeds have been stopped. (13) Generalized weakness: may require rehab, cont with PT and OT. (14) DVT prophylaxis: Hold Heparin Conditional Code Dispo-Rehab or SNF 2-3 days. Fischer was out and had to be placed again Labs Checked ROS-No Headache, No Visual Changes, No Nausea, No Vomiting, No Fever, No Chills, No Neck Pain or Stiffness, No Chest Pain, No Palpitations, No SOB, No ALDRIDGE, No Cough, No Sputum, No Wheezing, No Abdominal Pain, No Diarrhea, No Hematemesis, No Hemoptysis, No Unexpected Weight Loss, No Flank pain, No Melena, No Hematochezia, No Frequency, No Urgency, No Burning, No Hematuria, No Rashes, No Diaphoresis. Appetite is Normal Physical Exam Gen-AAO x 3, NAD, Afebrile, Nasal Bleeding stopped Head-NCAT, EOMI, PERRLA, Anicteric Sclera, No Posterior Pharyngeal Erythema Neck-Supple, No JVD, No Thyromegaly, No Masses, No LAD, No Bruits Lungs-Clear to Auscultation Bilaterally, No Rales, No Rhonchi, No Wheezing, No Crepitus Chest-No S4, +S1, +S2, No S3, No Murmurs, No Rubs, No Gallops, No Ectopy Abdomen-Soft, Bowel Sounds Present, Non Tender, Non Distended, No Hepatomegaly, No Splenomegaly, No Palpable Masses, No Rebound, No Rigidity, No Guarding Musculoskeletal-Full Range of Motion Bilaterally, No CVAT Extremities-No Cyanosis, No Clubbing, No Edema Nuero-Cranial Nerves II-XII grossly intact, Motor WNL, DTRs WNL, Strength WNL, Non Focal Psych-Normal Mood Admission and Anticipated Discharge Date Admission Date: November 04, 2019 Results & Data ([facility] Vital Signs (Past 12 Hours) Vital Signs Temp Pulse Pulse Resp BP Pulse Ox 11/17/19 07:47 36.7 C 61 19 158/67 H 97 11/17/19 04:00 37 C 61 16 158/87 H 97 11/17/19 00:00 36.8 C 64 61 16 149/55 H 97 (1) Pneumonia Pneumonia type: due to unspecified organism Laterality: right Lung location: upper lobe of lung Qualified Code(s): J18.9 - Pneumonia, unspecified organism
[2019-11-17] MEDS: AMLODIPINE BESYLATE 5 MG TAB PO SCH (08:19)
[2019-11-17] MEDS: ATORVASTATIN 40 MG TAB PO SCH (08:19)
[2019-11-17] MEDS: LACTOBACILLUS ACIDOPHILUS (FLORANEX) TAB PO SCH ×3 (08:19→17:47)
[2019-11-17] MEDS: cefTRIAXone SODIUM 2,000 MG in DEXTROSE 5% 50 ML IV SCH (08:20)
[2019-11-17] MEDS: FAMOTIDINE 20 MG TAB PO SCH (08:20)
[2019-11-17] MEDS: METOPROLOL TARTRATE 25 MG TAB PO SCH ×2 (08:20→21:28)
[2019-11-17] MEDS: HydrALAZINE TAB 50 MG TAB PO SCH ×4 (08:20→21:28)
[2019-11-17 08:24] LABS: Hematocrit (blood only) 22.1 % (37-47)
[2019-11-17 14:04] LABS: Appearance Urine Cloudy (Clear); Bacteria Urine Automated Negative (Negative); Bilirubin Urine Negative (Negative); Blood Urine Trace (Negative); Color Urine Yellow; Epithelial Cell Urine Auto 0-5 /lpf (0-5); Glucose Urine UA Negative (Negative); Ketones Urine Negative (Negative); Leukocyte Esterase Urine 2+ (Negative); Nitrite Urine Negative (Negative); Protein Urine 2+ (Negative); Specific Gravity Urine 1.018 (1.000-1.030); Urobilinogen Urine Negative (Negative)
--- NOTE | 2019-11-17 17:03 | Nephrology Progress Note ---
Date of Service November 17, 2019 Assessment & Plan (1) Acute kidney injury superimposed on CKD: Patient with acute kidney injury on CKD. Baseline creatinine of 1.8-2. Her creatinine is today 3.6, slowly worsening past 48 hours. Urine output is reducing. Etiology likely likely ischemic ATN in setting of poor p.o. intake, recent encephalopathy, pneumonia, influenza. Patient also with high Vanco levels recently could have nephrotoxic ATN -cont gray -daily BMP. Avoid nephrotoxins such as contrast -patient should get IV if normal saline at 75 mL/hour (2) Hypertension: Blood pressure is above target but given intermittent confusion, recent encephalopathy and question of CVA, would avoid lowering the blood pressure too much. Goal systolic of 150-160. -continue po hydralazine, amlodipine, catapres, metoprolol -hold lasix -continue prn hydralazine (3) Hypokalemia: Patient had ongoing hypokalemia and had required frequent K riders and other aggressive K resuscitation. Has not needed supplementation for several days now but will continue to monitor -daily BMP Admission and Anticipated Discharge Date Admission Date: November 04, 2019 Subjective Patient feels fine denies any shortness of breath or dizziness. She has a Gray catheter but urine output is reducing. Creatinine is up trending. She is starting to eat but still has poor appetite. She also had trouble swallowing Review of Systems Review of Systems: All systems reviewed & are unremarkable except as noted in HPI & below Physical Exam Physical Exam: General exam: Appears comfortable, no acute distress HEENT: Pupils are equal and reactive to light Neck: No JVD, neck is supple trachea is midline Respiratory system: Clear breath sounds bilaterally. Gastrointestinal: Abdomen is soft, non distended, non tender, bowel sounds are present CVS: Regular rate and rhythm. No murmurs, rubs or gallops Musculoskeletal: No joint or muscle tenderness Extremities: Non tender, no edema, peripheral pulses are present Neuro: Oriented, no tremors, no focal neurological deficits Skin: No rashes Results & Data ([facility]) Vital Signs (Past 12 Hours) Vital Signs Temp Pulse Pulse Resp BP Pulse Ox 11/17/19 16:00 64 11/17/19 15:32 36.5 C 60 18 154/60 H 98 11/17/19 10:44 36.4 C L 61 18 138/59 L 98 11/17/19 08:00 62 11/17/19 07:47 36.7 C 61 19 158/67 H 97 Laboratory Results 11/17/19 05:44 11/17/19 05:44 WBC 10.29 RBC 2.35 L MCV 91.5 MCH 28.9 MCHC 31.6 L RDW Std Deviation 61.1 H RDW Coeff of Aurelia 18.2 H Plt Count 422 H MPV 10.4 (1) Hypertension Hypertension type: essential hypertension Qualified Code(s): I10 - Essential (primary) hypertension
[2019-11-17 18:47] LABS: Hematocrit (blood only) 23.6 % (37-47); Hemoglobin 7.6 g/dL (12.0-16.0)
[2019-11-18 00:40] LABS: Hematocrit (blood only) 22.1 % (37-47)
[2019-11-18] MEDS: SODIUM CHLORIDE 0.45 % 1,000 ML IV SCH ×2 (04:10→17:16)
[2019-11-18] MEDS: cloNIDine HCL 0.1 MG TAB PO SCH ×2 (06:09→17:18)
[2019-11-18] MEDS: DOXYCYCLINE HYCLATE 100 MG in DEXTROSE 5% 100 ML IV SCH (06:16)
--- NOTE | 2019-11-18 07:09 | Hospitalist Progress Note ---
Date of Service November 18, 2019 Assessment & Plan (1) Acute hypoxemic respiratory failure: 2/2 Flu A and bilateral pneumonia. S/P Tamiflu and completed Rocephin/Doxy IV course. Hypoxia has resolved and she is doing well clinically. Recommend repeat CXR as outpatient (2) Pneumonia: Stop Abx (3) Influenza A: Tamiflu completed (4) Metabolic encephalopathy: resolved (5) Acute kidney injury superimposed on chronic kidney disease: Likely related to ATN after insult from pneumonia and flu per nephrology. Management per renal, currently on IVFs (6) Elevated LFTs: uncertain cause, ?tube feeds which have now stopped. She was on PPN for a few days, also. Liver US ordered. GI on case. Can't do MR or CTs c IVC sec to renal function (7) HTN (hypertension): Better controlled (8) Anemia: Likely multifactorial including chronic disease, CKD Stage IV and frequent phlebotomy over multiple hospitalizations reported in the past couple of months. May need transfusion today. Hb 6.8 on 11/16, repeat was 7, ASA, Plavix, and SC Heparin held, if LT 7 transfuse 1 unit, Blood consent is on the chart (9) Acute diastolic heart failure: Initially was fluid overloaded. (10) Encephalopathy: acute metabolic encephalopathy-resolved. Advance diet (11) CKD (chronic kidney disease), stage IV: Renal on case-Gentle IVFs, Possible Blood (12) Malnutrition: was given enteral feedings while unresponsive for a couple of days. CorSafe is out, tube feeds have been stopped. (13) Generalized weakness: may require rehab, cont with PT and OT. (14) DVT prophylaxis: Hold Heparin Conditional Code Dispo-Rehab or SNF 2-3 days. Fischer was out and had to be placed again Labs Checked ROS-No Headache, No Visual Changes, No Nausea, No Vomiting, No Fever, No Chills, No Neck Pain or Stiffness, No Chest Pain, No Palpitations, No SOB, No ALDRIDGE, No Cough, No Sputum, No Wheezing, No Abdominal Pain, No Diarrhea, No Hematemesis, No Hemoptysis, No Unexpected Weight Loss, No Flank pain, No Melena, No Hematochezia, No Frequency, No Urgency, No Burning, No Hematuria, No Rashes, No Diaphoresis. Appetite is Normal Physical Exam Gen-AAO x 3, NAD, Afebrile, Nasal Bleeding stopped Head-NCAT, EOMI, PERRLA, Anicteric Sclera, No Posterior Pharyngeal Erythema Neck-Supple, No JVD, No Thyromegaly, No Masses, No LAD, No Bruits Lungs-Clear to Auscultation Bilaterally, No Rales, No Rhonchi, No Wheezing, No Crepitus Chest-No S4, +S1, +S2, No S3, No Murmurs, No Rubs, No Gallops, No Ectopy Abdomen-Soft, Bowel Sounds Present, Non Tender, Non Distended, No Hepatomegaly, No Splenomegaly, No Palpable Masses, No Rebound, No Rigidity, No Guarding Musculoskeletal-Full Range of Motion Bilaterally, No CVAT Extremities-No Cyanosis, No Clubbing, No Edema Nuero-Cranial Nerves II-XII grossly intact, Motor WNL, DTRs WNL, Strength WNL, Non Focal Psych-Normal Mood Admission and Anticipated Discharge Date Admission Date: November 04, 2019 Results & Data ([facility]) Vital Signs (Past 12 Hours) Vital Signs Temp Pulse Pulse Resp BP Pulse Ox 11/18/19 04:48 36.5 C 63 18 158/63 H 96 11/18/19 01:53 60 11/18/19 00:00 36.8 C 59 L 20 151/63 H 97 11/17/19 19:22 36.8 C 62 18 162/65 H 98 (1) Pneumonia Pneumonia type: due to unspecified organism Laterality: right Lung location: upper lobe of lung Qualified Code(s): J18.9 - Pneumonia, unspecified organism
[2019-11-18] MEDS: ATORVASTATIN 40 MG TAB PO SCH (07:45)
[2019-11-18] MEDS: AMLODIPINE BESYLATE 5 MG TAB PO SCH (07:45)
[2019-11-18] MEDS: METOPROLOL TARTRATE 25 MG TAB PO SCH ×2 (07:45→20:13)
[2019-11-18] MEDS: LACTOBACILLUS ACIDOPHILUS (FLORANEX) TAB PO SCH ×3 (07:45→17:18)
[2019-11-18] MEDS: FAMOTIDINE 20 MG TAB PO SCH (07:45)
[2019-11-18] MEDS: HydrALAZINE TAB 50 MG TAB PO SCH ×4 (07:45→20:13)
[2019-11-18 08:02] LABS: Basophils # (auto) 0.03 K/uL (0-0.2); Basophils % (auto) 0.3 %; Eosinophils # (auto) 0.32 K/uL (0-0.5); Eosinophils % (auto) 3.2 %; Hematocrit (blood only) 22.2 % (37-47); Hemoglobin 7.2 g/dL (12.0-16.0); Immature Granulocytes # (auto) 0.13 K/uL (0.00-0.02); Immature Granulocytes % (auto) 1.3 %; Lymphocytes # (auto) 2.68 K/uL (1.2-3.4); Mean Corpuscular Hemoglobin 29.5 pg (25-34); Mean Corpuscular Hgb Conc 32.4 g/dL (32-36); Mean Platelet Volume 10.6 fL (7.4-10.4); Monocytes # (auto) 1.25 K/uL (0.11-0.59); Monocytes % (auto) 12.6 %; Neutrophils % (auto) 55.6 %; Platelet Count 446 K/uL (130-400); RDW Coefficient of Variation 17.8 % (11.5-14.5); RDW Standard Deviation 58.8 fL (36.4-46.3); Red Blood Count 2.44 M/uL (4.2-5.4); White Blood Count 9.91 K/uL (4.8-10.8)
[2019-11-18 08:11] LABS: INR 1.1 (0.9-1.1); Prothrombin Time 11.5 Seconds (9.0-12.0)
[2019-11-18 08:30] LABS: Basophilic Stippling 1+
[2019-11-18 08:38] LABS: Albumin Level 1.8 gm/dl (3.4-5.0); BUN Creatinine Ratio 16.9 (10-20); Calcium 8.7 mg/dl (8.5-10.1); Creatinine Clr Calc Pharmacy 11.6 ml/min; Est GFR (African American) 12.1; Est GFR (Non-African American) 10.4
[2019-11-18 08:40] LABS: Albumin Globulin Ratio 0.4 (0.9-2); Bilirubin,Total 0.3 mg/dl (0.2-1); Globulin 4.3 gm/dl (2.5-4.0); Total Protein 6.1 gm/dl (6.4-8.2)
[2019-11-18] MEDS: cefTRIAXone SODIUM 2,000 MG in DEXTROSE 5% 50 ML IV SCH (08:46)
--- NOTE | 2019-11-18 12:32 | Gastroenterology Progress Note ---
Date of Service November 18, 2019 Assessment & Plan (1) Elevated LFTs: 74 yo female with influenza A and pneumonia noted to have elevated AP and transaminases. Likely secondary to influenza +/- medications. - Follow daily LFTs. (2) Influenza A: (3) Acute diastolic heart failure: (4) Acute diastolic CHF (congestive heart failure): Ms. Davies has acute on chronic anemia, but no obvious GI bleeding and no symptoms of ulcer disease. BM this morning was brown per nursing. If GI bleeding has been present, then seems to be resolving. Due to influenza and acute on chronic renal injury, would avoid endoscopy, unless she continues to drop her Hb/Hct and has gross GI bleeding. GI will sign off but please notify us if new/worsening GI issues. Present on Admission?: Yes (5) Anemia: Admission and Anticipated Discharge Date Admission Date: November 04, 2019 Supervising Physician Co-Signing Physician Notes I have seen and discussed above patient with Dr Addy Quinones, neurologI attempted to see Ms. Davies today but she was attending to some bathroom duties I spent some time talking with her daughter and reviewing her case with DIOMEDES Zhao. I reviewed her EEG today which is essentially normal and was done yesterday and is certainly much improved from the study that was done several days ago during her unresponsive. And revealed generalized slowing, some triphasic waves, and potentially epileptogenic spikelike discharges of low frequency eman ating from the right hemisphere where she has had a prior CVA back in 2017 The current study shows none of this and clinically according to her daughter she is back to her near baseline Our plans are to sign off the case at this time and arrange for her to be seen on an outpatient basis and to have an outpatient EEG done during wakefulness and sleep and consider a 48 to 72-hour ambulatory study I will try to look at her tomorrow when I am in for rounds and may even try again this afternoon before I leave the hospital Addy Quinones MD Subjective Ms. Davies is a 74 yr old female with anemia chronic disease, CHF, hx of prior C. difficile colitis, VCA, Caroli's disease, CKD-4, GERD, HTN, history of CVA, CKD stage IV and Carolis disease. She was transferred here from [place] on 11/05 with influenza, pneumonia, EKG changes. Anemia: Hb 9.8 on arrival, received 1 unit of RBCs. Hb today 7.2. Elevated LFTS: AST 112->120; ALT 74->62, Alk Phos 236->329. T Bili remains normal. CT non contrast 11/08/19: stable serpiginous hyperdensity in the right hepatic lobe. No mention of bile duct abnormalities. Liver US 11/14/19 also without bile duct abnormalities, surgically absent gallbladder. Notes a nonspecific increase in hepatic echogenicity, a nonspecific finding most often seen in hepatic steatosis. Hepatitis and infiltrative proce sses can appear similar. Nursing today says pt passed a brown, formed BM this morning. Review of Systems Review of Systems: ROS: Gen: + weakness, No fevers Eyes: No eye redness, or pain, no recent vision changes Resp: + cough, mild Cardio: No palpitations/irregular beats, no chest pain GI: No abdominal pain, no nausea/vomiting : Denies pain on urination Skin: No jaundice, itching or new rashes Physical Exam Constitutional: + ill appearing (chronically) and + thin Eyes: PERRL, conjunctivae normal, anicteric sclerae ENMT: external ear and nose normal, oropharynx normal Neck: trachea midline, no thyromegaly Respiratory: normal respiratory effort, lungs clear to auscultation dimin ished at the bases Cardiovascular: Rate/Rhythm: regular rate and regular rhythm 2/6 systolic murmur Gastrointestinal (Abdomen): normal bowel sounds, soft, nontender, no hepatosplenomegaly very thin Skin: several small ecchymosis areas, one on chest, some on the left arm Neurologic: PERRL, EOMI, accommodation nl, no face palsy, no dysarthria Psychiatric: A+Ox3, euthymic affect Lymphatic: no cervical or axillary lymphadenopathy Results & Data ([facility]) Vital Signs (Past 12 Hours) Vital Signs Temp Pulse Pulse Resp BP Pulse Ox 11/18/19 11:39 64 11/18/19 07:39 36.5 C 76 18 160/68 H 96 11/18/19 04:48 36.5 C 63 18 158/63 H 96 11/18/19 01:53 60 Diagnostic Findings Liver US 11/14/19: 1. Surgically absent gallbladder 2. No ductal dilatation 3. Nonspecific increase in hepatic echogenicity, a nonspecific finding most often seen in hepatic steatosis. Hepatitis and infiltrative processes can appear similar.
--- NOTE | 2019-11-18 13:58 | Nephrology Progress Note ---
Date of Service November 18, 2019 Assessment & Plan (1) Acute kidney injury superimposed on CKD: Patient with acute kidney injury on CKD. Baseline creatinine of 1.8-2. Her creatinine is today 3.9, slowly worsening past 48 hours. Urine output is reducing. Etiology likely likely ischemic ATN in setting of poor p.o. intake, recent encephalopathy, pneumonia, influenza. Patient also with high Vanco levels recently could have nephrotoxic ATN. I discussed with the patient possibility of needing dialysis in the next few days. She is agreeable to dialysis if needed. -cont gray -daily BMP. Avoid nephrotoxins such as contrast -no need for IV fluids given episode of shortness of breath and oliguria (2) Hypertension: Blood pressure is above target but given intermittent confusion, recent encephalopathy and question of CVA, would avoid lowering the blood pressure too much. Goal systolic of 150-160. -continue po current regimen -hold lasix -continue prn hydralazine (3) Hypokalemia: Patient had ongoing hypokalemia and had required frequent K riders and other aggressive K resuscitation. Has not needed supplementation for several days now but will continue to monitor -daily BMP Admission and Anticipated Discharge Date Admission Date: November 04, 2019 Subjective Patient reports an episode of shortness of breath in the morning. No leg swelling. Urine output has reduced. Creatinine up trending. Review of Systems Review of Systems: All systems reviewed & are unremarkable except as noted in HPI & below Physical Exam Physical Exam: General exam: Appears comfortable, no acute distress HEENT: Pupils are equal and reactive to light Neck: No JVD, neck is supple trachea is midline Respiratory system: Clear breath sounds bilaterally. Gastrointestinal: Abdomen is soft, non distended, non tender, bowel sounds are present CVS: Regular rate and rhythm. No murmurs, rubs or gallops Musculoskeletal: No joint or muscle tenderness Extremities: Non tender, no edema, peripheral pulses are present Neuro: Oriented, no tremors, no focal neurological deficits Skin: No rashes Results & Data ([facility]) Vital Signs (Past 12 Hours) Vital Signs Temp Pulse Pulse Resp BP Pulse Ox 11/18/19 13:00 36.4 C L 59 L 16 147/56 H 97 11/18/19 11:39 64 11/18/19 07:39 36.5 C 76 18 160/68 H 96 11/18/19 04:48 36.5 C 63 18 158/63 H 96 Laboratory Results 11/18/19 07:16 11/18/19 11/18/19 07:16 07:16 WBC 9.91 RBC 2.44 L MCV 91.0 MCH 29.5 MCHC 32.4 RDW Std Deviation 58.8 H RDW Coeff of Aurelia 17.8 H Plt Count 446 H MPV 10.6 H Albumin 1.8 L (1) Hypertension Hypertension type: essential hypertension Qualified Code(s): I10 - Essential (primary) hypertension
[2019-11-18 16:14] LABS: Ferritin 921.4 ng/ml (8-388)
[2019-11-19] MEDS: SODIUM CHLORIDE 0.45 % 1,000 ML IV SCH (05:47)
[2019-11-19] MEDS: cloNIDine HCL 0.1 MG TAB PO SCH ×2 (05:59→18:32)
[2019-11-19 07:39] LABS: Hematocrit (blood only) 23.2 % (37-47); Hemoglobin 7.5 g/dL (12.0-16.0); Mean Corpuscular Hemoglobin 29.1 pg (25-34); Mean Corpuscular Hgb Conc 32.3 g/dL (32-36); Mean Corpuscular Volume 89.9 fL (80-100); Mean Platelet Volume 10.6 fL (7.4-10.4); Platelet Count 486 K/uL (130-400); RDW Coefficient of Variation 17.6 % (11.5-14.5); RDW Standard Deviation 57.4 fL (36.4-46.3); Red Blood Count 2.58 M/uL (4.2-5.4); White Blood Count 8.66 K/uL (4.8-10.8)
[2019-11-19 08:08] LABS: Albumin Level 1.7 gm/dl (3.4-5.0); BUN Creatinine Ratio 14.9 (10-20); Calcium 8.2 mg/dl (8.5-10.1); Creatinine Clr Calc Pharmacy 11.1 ml/min; Est GFR (African American) 11.2; Est GFR (Non-African American) 9.7
[2019-11-19 08:11] LABS: Albumin Globulin Ratio 0.4 (0.9-2); Bilirubin,Total 0.3 mg/dl (0.2-1); Globulin 4.5 gm/dl (2.5-4.0); Total Protein 6.2 gm/dl (6.4-8.2)
[2019-11-19] MEDS: METOPROLOL TARTRATE 25 MG TAB PO SCH (08:40)
[2019-11-19] MEDS: AMLODIPINE BESYLATE 5 MG TAB PO SCH (09:06)
[2019-11-19] MEDS: ATORVASTATIN 40 MG TAB PO SCH (09:08)
[2019-11-19] MEDS: LACTOBACILLUS ACIDOPHILUS (FLORANEX) TAB PO SCH ×3 (09:10→18:18)
[2019-11-19] MEDS: HydrALAZINE TAB 50 MG TAB PO SCH ×4 (09:11→21:20)
[2019-11-19] MEDS: FAMOTIDINE 20 MG TAB PO SCH (09:13)
--- NOTE | 2019-11-19 13:22 | Hospitalist Progress Note ---
Date of Service November 19, 2019 Assessment & Plan (1) Acute kidney injury superimposed on chronic kidney disease: Likely related to ATN after recent infections +/- medications. HD being considered per Nephrology. (2) Acute hypoxemic respiratory failure: 2/2 Flu A and bilateral pneumonia. S/P Tamiflu and completed Rocephin/Doxy IV course. Hypoxia has resolved and she is doing well clinically. Recommend repeat CXR as outpatient (3) Pneumonia: completed abx course (4) Influenza A: Tamiflu completed (5) Metabolic encephalopathy: resolved (6) Elevated LFTs: uncertain cause, ?tube feeds which have now stopped. She was on PPN for a few days, also. Per GI, this is improving. No further recommendations at this time. (7) HTN (hypertension): Better controlled (8) Anemia: Likely multifactorial including chronic disease, CKD Stage IV and frequent phlebotomy over multiple hospitalizations reported in the past couple of months. Considering blood transfusion. Check H/H in am. (9) Acute diastolic heart failure: Initially was fluid overloaded. Now she is more euvolemic and Lasix has been stopped. (10) Malnutrition: was given enteral feedings while unresponsive for a couple of days. CorSafe is out, tube feeds have been stopped. Appreciate Nutrition recs. (11) Generalized weakness: 2/2 multiple hospitalizations. rehab planned at discharge. (12) Bradycardia: Held toprol XL (13) DVT prophylaxis: SCDs, consider heparin once decision made regarding placement of HD catheter. Conditional Code-no ventilation, ACLS ok Dispo-to SNF when medically stable DO Sukhi [facility] Hospitalist Admission and Anticipated Discharge Date Admission Date: November 04, 2019 Subjective pt is weak and tired no reported acute symptoms at this time tolerating PO daughter at bedside, all questions addressed. Review of Systems Review of Systems: All systems reviewed & are unremarkable except as noted in Subjective Physical Exam Physical Exam: CONSTITUTIONAL: thin, vitals as above, generally ill-appearing and fatigued EYES: normal conjunctivae, no scleral icterus ENT: MMM RESPIRATORY: clear to auscultation bilaterally, no crackles, rales or wheezes, normal respiratory effort CARDIOVASCULAR: regular rate and rhythm, S1 and 2 heard without murmurs, gallops or rubs, no JVD, no peripheral edema GASTROINTESTINAL: soft, nontender, nondistended MUSCULOSKELETAL: generalized weakness, no gross focal deficits. SKIN: warm and dry NEUROLOGIC: CN 2-12 grossly intact, no sensory deficit, normal cognition, normal speech, no gross focal deficits. PSYCHIATRIC: alert cooperative and oriented Results & Data ([facility]) Vital Signs (Past 12 Hours) Vital Signs Temp Pulse Pulse Resp BP Pulse Ox 11/19/19 12:40 36.4 C L 62 18 166/63 H 97 11/19/19 08:18 36.3 C L 58 L 18 163/73 H 97 11/19/19 07:00 36.3 C L 58 L 57 L 20 163/73 H 97 11/19/19 04:00 36.8 C 58 L 18 137/64 95 Laboratory Results Short CBC 11/19/19 Range/Units 06:59 WBC 8.66 (4.8-10.8) K/uL Hgb 7.5 L (12.0-16.0) g/dL Hct 23.2 L (37-47) % Plt Count 486 H (130-400) K/uL BMP 11/19/19 06:59 Sodium 135 L Potassium 4.0 Chloride 108 H Carbon Dioxide 19 L BUN 62 H Creatinine 4.18 H Glucose 91 Calcium 8.2 L Liver Function 11/19/19 Range/Units 06:59 Total Bilirubin 0.3 (0.2-1) mg/dl AST 109 H (15-37) U/L ALT 58 (12-78) U/L Alkaline Phosphatase 311 H (45-117) U/L Albumin 1.7 L (3.4-5.0) gm/dl Medications Administered Current Inpatient Medications Acetaminophen (Tylenol) 650 mg PO Q6 PRN PRN Reason: Pain Stop: 12/11/19 14:53 Albuterol (Duoneb) 3 ml NEB Q4R PRN PRN Reason: Shortness Of Breath Stop: 12/05/19 02:59 Amlodipine Besylate (Norvasc) 10 mg PO QA [facility] Stop: 12/11/19 19:29 Last Admin: 11/19/19 09:06 Dose: 10 mg Documented by: Atorvastatin Calcium (Lipitor) 40 mg PO QAM [facility] Stop: 12/12/19 08:59 Last Admin: 11/19/19 09:08 Dose: 40 mg Documented by: Clonidine HCl (Catapres) 0.1 mg PO Q12H [facility] Stop: 12/13/19 05:59 Last Admin: 11/19/19 05:59 Dose: 0.1 mg Documented by: Cyanocobalamin (Vitamin B-12) 1,000 mcg PO QAM COUNT INCLUDES THE [facility] Stop: 12/05/19 08:59 Last Admin: 11/08/19 08:20 Dose: 1,000 mcg Documented by: Famotidine (Pepcid) 20 mg PO DAILY COUNT INCLUDES THE [facility] Stop: 12/06/19 08:59 Last Admin: 11/19/19 09:13 Dose: 20 mg Documented by: Furosemide (Lasix) 40 mg PO BID17 COUNT INCLUDES THE [facility] Stop: 12/07/19 16:59 Last Admin: 11/07/19 17:06 Dose: 40 mg Documented by: Hydralazine HCl (Apresoline) 50 mg PO QID COUNT INCLUDES THE [facility] Stop: 12/05/19 12:59 Last Admin: 11/19/19 09:11 Dose: 50 mg Documented by: Hydralazine HCl (Hydralazine Hcl) 10 mg IV Q8 PRN PRN Reason: sbp> 180 Stop: 12/12/19 08:42 Promethazine HCl 12.5 mg/ (Sodium Chloride) 50.5 mls @ 202 mls/hr IV Q6H PRN PRN Reason: Nausea And Vomiting Stop: 12/06/19 20:12 Last Infusion: 11/10/19 10:00 Dose: Infused Documented by: Sodium Chloride (1/2 Nss) 1,000 mls @ 80 mls/hr IV .[id number] COUNT INCLUDES THE [facility] Stop: 12/16/19 10:59 Last Admin: 11/19/19 05:47 Dose: 80 mls/hr Documented by: Lactobacillus Acidophilus (Floranex) 1 tab PO TIDM COUNT INCLUDES THE [facility] Stop: 12/05/19 07:59 Last Admin: 11/19/19 09:10 Dose: 1 tab Documented by: Metoprolol Tartrate (Lopressor) 75 mg PO BID COUNT INCLUDES THE [facility] Stop: 12/16/19 06:14 Last Admin: 11/19/19 08:40 Dose: Not Given Documented by: Miconazole Nitrate (Desenex) 1 appln EXT PRN PRN PRN Reason: Affected Skin Folds Stop: 12/19/19 12:07 (1) Pneumonia Laterality: right Lung location: upper lobe of lung Pneumonia type: due to unspecified organism Qualified Code(s): J18.9 - Pneumonia, unspecified organism
--- NOTE | 2019-11-19 15:55 | Nephrology Progress Note ---
Date of Service November 19, 2019 Assessment & Plan (1) Acute kidney injury superimposed on CKD: Patient with acute kidney injury on CKD. Baseline creatinine of 1.8-2. Her creatinine is today 4.1, slowly worsening past couple of days. Urine output is reducing. Etiology likely likely ischemic ATN in setting of poor p.o. intake, recent encephalopathy, pneumonia, influenza. Patient also with high Vanco levels recently could have nephrotoxic ATN. I discussed with the patient possibility of needing dialysis in the next few days. She is agreeable to dialysis if needed. I also spoke to Asa about dialysis -cont gray -daily BMP. Avoid nephrotoxins such as contrast -no need for IV fluids given episode of shortness of breath and oliguria (2) Hypertension: Blood pressure is above target but given intermittent confusion, recent encephalopathy and question of CVA, would avoid lowering the blood pressure too much. Goal systolic of 150-160. -continue po current regimen -hold lasix -continue prn hydralazine (3) Hypokalemia: Patient had ongoing hypokalemia and had required frequent K riders and ot her aggressive K resuscitation. Has not needed supplementation for several days now but will continue to monitor -daily BMP Admission and Anticipated Discharge Date Admission Date: November 04, 2019 Subjective Patient feels about the same. She had a good night sleep. No SOB. She is back on iv fluids. Spoke to daughter Asa on Phone as well. Urine out is low. cr is uptrending Review of Systems Review of Systems: All systems reviewed & are unremarkable except as noted in HPI & below Physical Exam Physical Exam: General exam: Appears comfortable, no acute distress HEENT: Pupils are equal and reactive to light Neck: No JVD, neck is supple trachea is midline Respiratory system: Clear breath sounds bilaterally. Gastrointestinal: Abdomen is soft, non distended, non tender, bowel sounds are present CVS: Regular rate and rhythm. No murmurs, rubs or gallops Musculoskeletal: No joint or muscle tenderness Extremities: Non tender, no edema, peripheral pulses are present Neuro: Oriented, no tremors, no focal neurological deficits Skin: No rashes Results & Data ([facility]) Vital Signs (Past 12 Hours) Vital Signs Temp Pulse Pulse Resp BP Pulse Ox 11/19/19 15:22 36.3 C L 66 16 135/64 97 11/19/19 12:40 36.4 C L 62 18 166/63 H 97 11/19/19 08:18 36.3 C L 58 L 18 163/73 H 97 11/19/19 07:00 36.3 C L 58 L 57 L 20 163/73 H 97 11/19/19 04:00 36.8 C 58 L 18 137/64 95 Laboratory Results 11/19/19 06:59 11/19/19 11/19/19 06:59 06:59 WBC 8.66 RBC 2.58 L MCV 89.9 MCH 29.1 MCHC 32.3 RDW Std Deviation 57.4 H RDW Coeff of Aurelia 17.6 H Plt Count 486 H MPV 10.6 H Albumin 1.7 L (1) Hypertension Hypertension type: essential hypertension Qualified Code(s): I10 - Essential (primary) hypertension
[2019-11-19] MEDS ORDERED: ACETAMINOPHEN 325 MG TAB PO ONE (18:18)
[2019-11-19] MEDS: MICONAZOLE NITRATE POWDER 43 GM EXT PRN (18:20)
[2019-11-19] MEDS ORDERED: SODIUM CHLORIDE 0.9% 250 ML IV PRN (18:27)
[2019-11-19] MEDS ORDERED: FUROSEMIDE 40 MG in SYRINGE 0 ML IV ONE (19:00)
[2019-11-19] MEDS ORDERED: diphenhydrAMINE HCl 12.5 MG/5 ML UDC PO ONE (21:15)
[2019-11-20] MEDS: cloNIDine HCL 0.1 MG TAB PO SCH ×2 (05:45→17:33)
[2019-11-20 07:10] LABS: Hematocrit (blood only) 30.4 % (37-47); Hemoglobin 9.9 g/dL (12.0-16.0); Mean Corpuscular Hemoglobin 28.9 pg (25-34); Mean Corpuscular Hgb Conc 32.6 g/dL (32-36); Mean Corpuscular Volume 88.9 fL (80-100); Mean Platelet Volume 10.6 fL (7.4-10.4); Platelet Count 455 K/uL (130-400); RDW Coefficient of Variation 16.6 % (11.5-14.5); RDW Standard Deviation 53.7 fL (36.4-46.3); Red Blood Count 3.42 M/uL (4.2-5.4); White Blood Count 9.81 K/uL (4.8-10.8)
[2019-11-20 07:37] LABS: Calcium 8.3 mg/dl (8.5-10.1); Creatinine Clr Calc Pharmacy 10.6 ml/min; Est GFR (African American) 10.5; Est GFR (Non-African American) 9.1; Potassium 3.8 mmol/L (3.5-5.1)
[2019-11-20] MEDS: LACTOBACILLUS ACIDOPHILUS (FLORANEX) TAB PO SCH ×3 (08:07→17:15)
[2019-11-20] MEDS: AMLODIPINE BESYLATE 5 MG TAB PO SCH (08:07)
[2019-11-20] MEDS: HydrALAZINE TAB 50 MG TAB PO SCH ×4 (08:08→20:36)
[2019-11-20] MEDS: FAMOTIDINE 20 MG TAB PO SCH (08:17)
[2019-11-20] MEDS: PROMETHAZINE HCL 12.5 MG in SODIUM CHLORIDE 0.9% 50 ML IV PRN (08:45)
[2019-11-20] MEDS: MICONAZOLE NITRATE POWDER 43 GM EXT PRN (13:00)
--- NOTE | 2019-11-20 14:39 | Hospitalist Progress Note ---
Date of Service November 20, 2019 Assessment & Plan (1) Acute kidney injury superimposed on chronic kidney disease: Thought to be related to ATN after recent infections/medications and in the setting of known multiple hospital admissions in the last few months. Appreciate renal input who is considering HD with her current GFR and developing acidosis. (2) Elevated LFTs: Uncertain etiology with consideration given to recent tube feeds which have now stopped, PPN which she is off of. GI was consulted and felt the LFT elevation may have been secondary to recent influenza infection plus or minus medications. Overall this was decreasing and no clinical evidence of hepatitis. Continue to monitor periodically. (3) Acute hypoxemic respiratory failure: 2/2 Flu A and bilateral pneumonia. S/P Tamiflu and completed abx course. Hypoxia has resolved and she is doing well clinically. Recommend repeat CXR as outpatient (4) Pneumonia: completed abx course (5) Influenza A: Tamiflu course completed, off droplet precautions and improved overall (6) Metabolic encephalopathy: resolved (7) HTN (hypertension): Increased blood pressure, possibly secondary to worsening renal function. Limited options with respect to medications. Appreciate nephro input on this. Will adjust diet to include low-salt and renal considerations. (8) Anemia: Likely multifactorial including chronic disease, CKD Stage IV and frequent phlebotomy over multiple hospitalizations reported in the past couple of months. Transfusion given overnight with appropriate response in H/H seen. cont holding ASA and Plavix for now. No active bleeding but consideration being given to starting HD and the need to place a HD catheter--will cont to hold. (9) Acute diastolic heart failure: Initially was fluid overloaded, but is now euvolemic after Lasix given. Lasix on hold with worsening renal failure, however. Patient still remains compensated from this standpoint clinically. (10) Malnutrition: was given enteral feedings while unresponsive for a couple of days. CorSafe is out, tube feeds have been stopped and she is tolerating solid food reliably. Appreciate Nutrition assistance in supplementing nutrition as appropriate. (11) Generalized weakness: physical deconditioning 2/2 prolonged hospitalization and multiple recent hospitalizations. (12) DVT prophylaxis: SCDs, plan to start heparin SQ after decision on HD catheter placement Conditional Code-consider Palliative consult for assistance with defining care goals. This wsa last addressed on admission 3 weeks ago. Dispo-to SNF when medically stable, not until after the weekend, more likely dc not possible until middle of next week. DO [facility] Hospitalist Admission and Anticipated Discharge Date Admission Date: November 04, 2019 Anticipated date of discharge: 11/26/19 Subjective feels tired still very sleepy no issues wtih blood and repeat h/h is improved today ROS otherwise negative we discussed the possibility of a HD catheter today or tomorrow. i discussed the case with Dr. Nina Review of Systems Review of Systems: All systems reviewed & are unremarkable except as noted in Subjective Physical Exam Physical Exam: CONSTITUTIONAL: thin, vitals as above, generally ill-appearing and fatigued EYES: normal conjunctivae, no scleral icterus ENT: MMM RESPIRATORY: clear to auscultation bilaterally, no crackles, rales or wheezes, normal respiratory effort CARDIOVASCULAR: regular rate and rhythm, S1 and 2 heard without murmurs, gallops or rubs, no JVD, no peripheral edema GASTROINTESTINAL: soft, nontender, nondistended MUSCULOSKELETAL: generalized weakness, no gross focal deficits. SKIN: warm and dry NEUROLOGIC: CN 2-12 grossly intact, no sensory deficit, normal cognition, normal speech, no gross focal deficits. PSYCHIATRIC: alert cooperative and oriented Results & Data ([facility]) Vital Signs (Past 12 Hours) Vital Signs Temp Pulse Pulse Resp BP BP Pulse Ox 11/20/19 14:25 36.7 C 70 18 161/62 H 96 11/20/19 11:16 36.7 C 65 20 170/61 H 95 11/20/19 07:13 36.7 C 64 18 155/64 H 96 11/20/19 07:00 66 11/20/19 04:12 36.5 C 62 16 169/66 H 96 11/20/19 03:22 36.7 C 60 16 155/65 H 97 11/20/19 02:55 97 Laboratory Results Short CBC 11/20/19 Range/Units 06:32 WBC 9.81 (4.8-10.8) K/uL Hgb 9.9 L (12.0-16.0) g/dL Hct 30.4 L (37-47) % Plt Count 455 H (130-400) K/uL BMP 11/20/19 06:32 Sodium 135 L Potassium 3.8 Chloride 107 Carbon Dioxide 17 L BUN 62 H Creatinine 4.41 H Glucose 82 Calcium 8.3 L Medications Administered Current Inpatient Medications Acetaminophen (Tylenol) 650 mg PO Q6 PRN PRN Reason: Pain Stop: 12/11/19 14:53 Albuterol (Duoneb) 3 ml NEB Q4R PRN PRN Reason: Shortness Of Breath Stop: 12/05/19 02:59 Amlodipine Besylate ([facility]asc) [facility] Stop: 12/11/19 19:29 Last Admin: 11/20/19 08:07 Dose: 10 mg Documented by: Atorvastatin Calcium (Lipitor) 40 mg PO QAM [facility] Stop: 12/12/19 08:59 Last Admin: 11/19/19 09:08 Dose: 40 mg Documented by: Clonidine HCl (Catapres) 0.1 mg PO Q12H [facility] Stop: 12/13/19 05:59 Last Admin: 11/20/19 05:45 Dose: 0.1 mg Documented by: Cyanocobalamin (Vitamin B-12) 1,000 mcg PO QAM [facility] Stop: 12/05/19 08:59 Last Admin: 11/08/19 08:20 Dose: 1,000 mcg Documented by: Famotidine (Pepcid) 20 mg PO DAILY [facility] Stop: 12/06/19 08:59 Last Admin: 11/20/19 08:17 Dose: 20 mg Documented by: Furosemide (Lasix) 40 mg PO BID17 [facility] Stop: 12/07/19 16:59 Last Admin: 11/07/19 17:06 Dose: 40 mg Documented by: Hydralazine HCl (Apresoline) 50 mg PO QID [facility] Stop: 12/05/19 12:59 Last Admin: 11/20/19 12:22 Dose: 50 mg Documented by: Promethazine HCl 12.5 mg/ (Sodium Chloride) 50.5 mls @ 202 mls/hr IV Q6H PRN PRN Reason: Nausea And Vomiting Stop: 12/06/19 20:12 Last Infusion: 11/20/19 09:00 Dose: Infused Documented by: Lactobacillus Acidophilus (Floranex) 1 tab PO TIDM [facility] Stop: 12/05/19 07:59 Last Admin: 11/20/19 12:23 Dose: 1 tab Documented by: Metoprolol Tartrate (Lopressor) 75 mg PO BID [facility] Stop: 12/16/19 06:14 Last Admin: 11/19/19 08:40 Dose: Not Given Documented by: Miconazole Nitrate (Desenex) 1 appln EXT PRN PRN PRN Reason: Affected Skin Folds Stop: 12/19/19 12:07 Last Admin: 11/20/19 13:00 Dose: 1 appln Documented by: (1) Pneumonia Laterality: right Lung location: upper lobe of lung Pneumonia type: due to unspecified organism Qualified Code(s): J18.9 - Pneumonia, unspecified organism
--- NOTE | 2019-11-20 15:31 | Nephrology Progress Note ---
Date of Service November 20, 2019 Assessment & Plan (1) Acute kidney injury superimposed on CKD: Patient with acute kidney injury on CKD. Baseline creatinine of 1.8-2. Her creatinine is today 4.4 from yesterday's 4.1, slowly worsening past couple of days. Urine output is about 500 mL in 24 hours, stable for 2 days. Etiology likely likely ischemic ATN in setting of poor p.o. intake, recent encephalopathy, pneumonia, influenza. Patient also with high Vanco levels recently could have nephrotoxic ATN. I discussed with the patient possibility of needing dialysis in the next few days. She is agreeable to dialysis if needed. I also spoke to Asa about dialysis. Patient prefers to wait until Sunday before placing dialysis catheter. -cont gray -daily BMP. Avoid nephrotoxins such as contrast -no need for IV fluids given episode of shortness of breath and oliguria (2) Hypertension: Blood pressure is above target but given intermittent confusion, recent encephalopathy and question of CVA, would avoid lowering the blood pressure too much. Goal systolic of 150-160. -continue po current regimen -hold lasix -continue prn hydralazine (3) Hypokalemia: Patient had ongoing hypokalemia and had required frequent K riders and other aggressive K resuscitation. Has not needed supplementation for several days now but will continue to monitor -daily BMP Admission and Anticipated Discharge Date Admission Date: November 04, 2019 Subjective Patient feels better today denies any shortness of breath. She is eating and drinking well. No vomiting. Daughter Asa was at the bedside and all questions were answered. Review of Systems Review of Systems: All systems reviewed & are unremarkable except as noted in HPI & below Physical Exam Physical Exam: General exam: Appears comfortable, no acute distress HEENT: Pupils are equal and reactive to light Neck: No JVD, neck is supple trachea is midline Respiratory system: Clear breath sounds bilaterally. Gastrointestinal: Abdomen is soft, non distended, non tender, bowel sounds are present CVS: Regular rate and rhythm. No murmurs, rubs or gallops Musculoskeletal: No joint or muscle tenderness Extremities: Non tender, no edema, peripheral pulses are present Neuro: Oriented, no tremors, no focal neurological deficits Skin: No rashes Results & Data ([facility]) Vital Signs (Past 12 Hours) Vital Signs Temp Pulse Pulse Resp BP BP Pulse Ox 11/20/19 14:25 36.7 C 70 18 161/62 H 96 11/20/19 11:16 36.7 C 65 20 170/61 H 95 11/20/19 07:13 36.7 C 64 18 155/64 H 96 11/20/19 07:00 66 11/20/19 04:12 36.5 C 62 16 169/66 H 96 Laboratory Results 11/20/19 06:32 11/20/19 06:32 WBC 9.81 RBC 3.42 L MCV 88.9 MCH 28.9 MCHC 32.6 RDW Std Deviation 53.7 H RDW Coeff of Aurelia 16.6 H Plt Count 455 H MPV 10.6 H (1) Hypertension Hypertension type: essential hypertension Qualified Code(s): I10 - Essential (primary) hypertension
[2019-11-21] MEDS: cloNIDine HCL 0.1 MG TAB PO SCH ×2 (05:54→16:45)
[2019-11-21 08:14] LABS: Hematocrit (blood only) 28.4 % (37-47); Hemoglobin 9.3 g/dL (12.0-16.0); Mean Corpuscular Hemoglobin 28.6 pg (25-34); Mean Corpuscular Hgb Conc 32.7 g/dL (32-36); Mean Corpuscular Volume 87.4 fL (80-100); Mean Platelet Volume 9.9 fL (7.4-10.4); Nucleated RBC # (auto) 0.02 K/uL (0-0); Nucleated RBC % (auto) 0.2 %; Platelet Count 450 K/uL (130-400); RDW Coefficient of Variation 16.8 % (11.5-14.5); RDW Standard Deviation 53.9 fL (36.4-46.3); Red Blood Count 3.25 M/uL (4.2-5.4); White Blood Count 10.74 K/uL (4.8-10.8)
[2019-11-21 09:00] LABS: Albumin Globulin Ratio 0.4 (0.9-2); Albumin Level 1.8 gm/dl (3.4-5.0); BUN Creatinine Ratio 12.9 (10-20); Bilirubin,Total 0.4 mg/dl (0.2-1); Calcium 8.2 mg/dl (8.5-10.1); Creatinine Clr Calc Pharmacy 9.4 ml/min; Est GFR (African American) 9.2; Est GFR (Non-African American) 7.9; Globulin 4.5 gm/dl (2.5-4.0); Potassium 3.8 mmol/L (3.5-5.1); Total Protein 6.3 gm/dl (6.4-8.2)
[2019-11-21] MEDS: AMLODIPINE BESYLATE 5 MG TAB PO SCH (09:27)
[2019-11-21] MEDS: LACTOBACILLUS ACIDOPHILUS (FLORANEX) TAB PO SCH ×3 (09:27→16:45)
[2019-11-21] MEDS: HydrALAZINE TAB 50 MG TAB PO SCH ×3 (09:27→22:16)
[2019-11-21] MEDS: FAMOTIDINE 20 MG TAB PO SCH (09:27)
[2019-11-21] MEDS: PROMETHAZINE HCL 12.5 MG in SODIUM CHLORIDE 0.9% 50 ML IV PRN (09:44)
--- NOTE | 2019-11-21 10:36 | Hospitalist Progress Note ---
Date of Service November 21, 2019 Assessment & Plan (1) Acute kidney injury superimposed on chronic kidney disease: Likely related to ATN after recent infections +/- medications. Hemodialysis catheter placement today in preparation for dialysis initiation over the weekend. (2) Acute hypoxemic respiratory failure: 2/2 Flu A and bilateral pneumonia. S/P Tamiflu and completed abx course. Hypoxia has resolved and she is doing well clinically. Recommend repeat CXR as outpatient (3) Pneumonia: completed abx course (4) Influenza A: Tamiflu course completed, off droplet precautions and improved overall (5) Elevated LFTs: uncertain cause, ?tube feeds which have now stopped. She was on PPN for a few days, also. Per GI, this is improving. No further recommendations at this time. (6) HTN (hypertension): Increased blood pressure, possibly secondary to worsening renal function. Limited options with respect to medications. Appreciate nephro input on this. Renal/low salt diet. (7) Anemia: Likely multifactorial including chronic disease, CKD Stage IV and frequent phlebotomy over multiple hospitalizations reported in the past couple of months. Responded appropriately to two units. (8) Malnutrition: was given enteral feedings while unresponsive for a couple of days. CorSafe is out, tube feeds have been stopped. Appreciate Nutrition recs. (9) Generalized weakness: 2/2 multiple hospitalizations. rehab planned at discharge. (10) Bradycardia: Held toprol XL (11) DVT prophylaxis: Heparin in am. Full Code Dispo-to SNF when medically stable [facility] Admission and Anticipated Discharge Date Admission Date: November 04, 2019 Anticipated date of discharge: 11/26/19 Subjective doing well but nervous about procedure to receive the HD catheter we discussed code status and she is a full code now. This discussion occurred with her daughter present. denies pain, tolerating PO Review of Systems Review of Systems: All systems reviewed & are unremarkable except as noted in Subjective Physical Exam Physical Exam: CONSTITUTIONAL: thin, vitals as above, generally ill-appearing and fatigued EYES: normal conjunctivae, no scleral icterus ENT: MMM RESPIRATORY: clear to auscultation bilaterally, no crackles, rales or wheezes, normal respiratory effort CARDIOVASCULAR: regular rate and rhythm, S1 and 2 heard without murmurs, gallops or rubs, no JVD, no peripheral edema GASTROINTESTINAL: soft, nontender, nondistended MUSCULOSKELETAL: generalized weakness, no gross focal deficits. SKIN: warm and dry NEUROLOGIC: CN 2-12 grossly intact, no sensory deficit, normal cognition, normal speech, no gross focal deficits. PSYCHIATRIC: alert cooperative and oriented Results & Data ([facility]) Vital Signs (Past 12 Hours) Vital Signs Temp Pulse Pulse Resp BP Pulse Ox 11/21/19 07:40 36.6 C 73 20 165/63 H 95 11/21/19 03:00 36.3 C L 71 20 149/56 H 96 11/21/19 00:32 67 Laboratory Results Short CBC 11/21/19 Range/Units 07:52 WBC 10.74 (4.8-10.8) K/uL Hgb 9.3 L (12.0-16.0) g/dL Hct 28.4 L (37-47) % Plt Count 450 H (130-400) K/uL BMP 11/21/19 07:52 Sodium 136 Potassium 3.8 Chloride 108 H Carbon Dioxide 15 L BUN 64 H Creatinine 4.94 H* D Glucose 76 Calcium 8.2 L Liver Function 11/21/19 Range/Units 07:52 Total Bilirubin 0.4 (0.2-1) mg/dl AST 103 H (15-37) U/L ALT 58 (12-78) U/L Alkaline Phosphatase 326 H (45-117) U/L Albumin 1.8 L (3.4-5.0) gm/dl Medications Administered Current Inpatient Medications Acetaminophen (Tylenol) 650 mg PO Q6 PRN PRN Reason: Pain Stop: 12/11/19 14:53 Albuterol (Duoneb) 3 ml NEB Q4R PRN PRN Reason: Shortness Of Breath Stop: 12/05/19 02:59 Amlodipine Besylate (Norvasc) 10 mg PO QAM [facility] Stop: 12/11/19 19:29 Last Admin: 11/21/19 09:27 Dose: 10 mg Documented by: Atorvastatin Calcium (Lipitor) 40 mg PO QAM [facility] Stop: 12/12/19 08:59 Last Admin: 11/19/19 09:08 Dose: 40 mg Documented by: Clonidine HCl (Catapres) 0.1 mg PO Q12H [facility] Stop: 12/13/19 05:59 Last Admin: 11/21/19 05:54 Dose: 0.1 mg Documented by: Cyanocobalamin (Vitamin B-12) 1,000 mcg PO QAM [facility] Stop: 12/05/19 08:59 Last Admin: 11/08/19 08:20 Dose: 1,000 mcg Documented by: Famotidine (Pepcid) 20 mg PO DAILY [facility] Stop: 12/06/19 08:59 Last Admin: 11/21/19 09:27 Dose: 20 mg Documented by: Furosemide (Lasix) 40 mg PO BID17 [facility] Stop: 12/07/19 16:59 Last Admin: 11/07/19 17:06 Dose: 40 mg Documented by: Hydralazine HCl (Apresoline) 50 mg PO Q8 [facility] Stop: 12/21/19 15:59 Promethazine HCl 12.5 mg/ (Sodium Chloride) 50.5 mls @ 202 mls/hr IV Q6H PRN PRN Reason: Nausea And Vomiting Stop: 12/06/19 20:12 Last Infusion: 11/21/19 09:59 Dose: Infused Documented by: Lactobacillus Acidophilus (Floranex) 1 tab PO TIDM [facility] Stop: 12/05/19 07:59 Last Admin: 11/21/19 09:27 Dose: 1 tab Documented by: Metoprolol Tartrate (Lopressor) 75 mg PO BID [facility] Stop: 12/16/19 06:14 Last Admin: 11/19/19 08:40 Dose: Not Given Documented by: Miconazole Nitrate (Desenex) 1 appln EXT PRN PRN PRN Reason: Affected Skin Folds Stop: 12/19/19 12:07 Last Admin: 11/20/19 13:00 Dose: 1 appln Documented by: (1) Pneumonia Laterality: right Lung location: upper lobe of lung Pneumonia type: due to unspecified organism Qualified Code(s): J18.9 - Pneumonia, unspecified organism
--- NOTE | 2019-11-21 12:26 | Consultation ---
Date of Consultation November 21, 2019 Assessment & Plan (1) Acute kidney injury superimposed on chronic kidney disease: Pt shceduled for permcath insertion later today, pt agreeable. NPO until after placement. Patient was seen, examined, and chart reviewed. Agree with exam and treatment plan of the Vascular PA. I have discussed the risks options and benefits of the procedure with the patient. The patient understands the risks options and benefits and agrees to the procedure. History of Present Illness Reason for Consultation: EDYTA Attending Physician: Maureen Mccoy DO History of Present Illness 74 yo f with multiple medical problems, including HTN, CHF, hx [place], chronic anemia, lupus, GERD, CVA, colon ca, and CKD, admitted with acute on chronic kidney disease and Influenza A(treated), seen in consultation for placement of permcath for initiation of HD. Pt states feeling fatigued and had some nausea t his morning. Admits edema of BLE. States she has been malnutritioned since june 2019 when she first had her colon resection. She subsequently suffered a cholecystectomy and multiple C diff infections since then. Most recent C diff testing negative for active infection. Denies VAZQUEZ, fever, chills, chest pain, SOB, abd pain, vomiting, rest pain, claudication, other complaints. Pt states she ate a peppermint claudia approx 1-2 hr ago, but has had only a few sips of water otherwise with her medications. Allergies Allergy/AdvReac Type Severity Reaction Status Date / Time Iodinated Contrast Media Allergy Severe HIVES/DIFFICULTY Verified 10/06/19 13:33 SWALLOWING Home Medications Home Medications Medication Instructions Recorded Confirmed Type aspirin 81 mg PO HS 08/19/18 11/05/19 History clopidogrel 75 mg PO QAM 08/19/18 11/05/19 History cyanocobalamin (vitamin B-12) 1,000 mcg PO QAM 08/19/18 11/05/19 History amlodipine 10 mg PO DAILY 08/30/19 11/05/19 History sertraline 50 mg PO DAILY 08/30/19 11/05/19 History Lactobacillus acidoph-L.bulgar 1 tab PO TIDM 10 Days #30 tab 10/01/19 11/05/19 Rx ondansetron HCl 4 mg PO Q8 PRN 10/10/19 11/05/19 History ranitidine HCl 150 mg PO BID 10/10/19 11/05/19 History clonidine HCl 0.1 mg PO BID 30 Days #60 tab 10/13/19 11/05/19 Rx metoprolol tartrate 25 mg PO BID 30 Days #60 tab 10/13/19 11/05/19 Rx hydralazine 25 mg PO TID 11/05/19 11/05/19 History vancomycin PO Q6 11/05/19 History Patient History Medical History Atrophy of left kidney C. difficile colitis (Acute) Cancer MULTIPLE SKIN CANCER REMOVALS (RADIATION FOR SKIN CANCER/UPPER LIP) Carolis disease (Chronic) Chronic diastolic CHF (congestive heart failure) CKD (chronic kidney disease), stage IV (Chronic) Endometriosis GERD (gastroesophageal reflux disease) (Chronic) History of CVA (cerebrovascular accident) (Chronic) 2016, no residual deficits Hyperlipidemia Hypertension (Chronic) Lupus (Chronic) Migraine Mood disorder Osteoarthritis Surgical History History of colon resection (Chronic) Aug 05 2019 at [facility]. Patient stated she had surgery early in the morning and didn't remember waking up until 1 AM. She is unaware of how long the procedure was and she was not intubated post-op. History of colonoscopy History of esophagogastroduodenoscopy (EGD) History of tonsillectomy History of tooth extraction History of total abdominal hysterectomy and bilateral salpingo-oophorectomy S/P laparoscopic cholecystectomy (09/09/19) Laparoscopic Cholecystectomy Dr. 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 Beliefs That Will Affect Care: None marital status: / Current Living Situation: Alone Other Information That Helps Us Care for You: No Feels Safe at Home: Yes Safety Concerns: Feels Safe At This Time Smoking Status: Never smoker Second Hand Exposure: No ; Hx Alcohol Use: No Hx Substance Use: No Review of Systems Review of Systems: All systems reviewed & are unremarkable except as noted in HPI & below Physical Exam Constitutional: WD/WN, vitals as above + frail appearing, well groomed, cooperative and comfortable; not in distress Eyes: PERRL, conjunctivae normal, anicteric sclerae ENMT: external ear and nose normal, oropharynx normal Ears: no hearing impairment Neck: trachea midline, no thyromegaly Respiratory: normal respiratory effort, lungs clear to auscultation Cardiovascular: Rate/Rhythm: regular rate and regular rhythm Vessels: posterior tibial pulses present, dorsalis pedis pulses present, brachial pulses present and radial pulses present; + abnormal peripheral pulses Extremities: normal capillary refill, + pedal edema and + edema (BLE and BUE) Gastrointestinal (Abdomen): normal bowel sounds, soft, nontender, no hepatosplenomegaly Musculoskeletal: no cyanosis or clubbing, extremities motor strength 5/5 Skin: no rashes, warm and dry Neurologic: moves all extremities and awake; no focal motor deficits and not confused Psychiatric: A+Ox3, euthymic affect Results & Data Vital Signs (Past 12 Hours) Vital Signs Temp Pulse Pulse Resp BP Pulse Ox 11/21/19 11:41 36.2 C L 73 18 173/67 H 95 11/21/19 07:40 36.6 C 73 20 165/63 H 95 11/21/19 03:00 36.3 C L 71 20 149/56 H 96 11/21/19 00:32 67
[2019-11-21] MEDS ORDERED: HydrALAZINE HCL 20 MG/ML VIAL IV ONE (12:29)
[2019-11-21] MEDS ORDERED: CEFAZOLIN 1000MG 1,000 MG/7.5 ML SYR IV SCH (13:00)
[2019-11-21] MEDS ORDERED: CEFAZOLIN 1000MG 1,000 MG/7.5 ML SYR IV ONE (13:00)
--- NOTE | 2019-11-21 14:04 | Palliative Care Consultation ---
Date of Consultation November 21, 2019 Assessment & Plan (1) Goals of care, counseling/discussion: -74 year old female patient with PMH anemia of chronic disease, CHF, C. difficile colitis, hemorrhagic shock, GERD, hypertension, lupus, history of CVA, CKD stage IV, colon cancer s/p resection in July 2019, and other problems, presented to the hospital 17 days ago with c/o N/V, abdominal pain and SOB. Patient was found to have right sided pneumonia and positive for influenza A. Upon arrival, patient was encephalopathic-- confused and mostly unresponsive for several days. At one point, a stroke alert was called, but MRI showed no new stroke. Patient was started on enteral feedings via NG tube due to her inability to take PO. Eventually, patient's mental status did improve, and she is now fully awake and alert. Tolerating oral nutrition without issue, except that she has a very poor appetite and does not eat/drink well at all. Unfortunately, patient's kidney function has been steadily worsening throughout hospitalization due to ATN. Today, her creatinine is up to 4.94, her urine output is only about 500ml in 24 hours per nephrology's note. Decision has been made to move forward with perma cath placement and to start dialysis. Patient has been in the hospital, whether it was here or [place], seven times since July-- she has been to [facility] for rehab, but has not been able to stay well enough to be at home and out of the hospital. She has lost about 40lbs, continues to not eat or drink well. Prior to hospitalization in July, patient was living independently, driving, and was active in her anabaptist and community. Given patient's multiple comorbidities and deteriorating health, palliative care is consulted to discuss goals of care. -Met with patient and her daughter, Asa, in room 279. Patient is sitting in chair, pleasant and talkative. -Patient has no complaints of pain or SOB. Does c/o poor appetite and waves of nausea. No vomiting. -Patient and her daughter gave a synopsis of what has happened since July. Patient admits that she has been been eating or drinking well since her first admission in July when she had surgery. -Patient states that her goal is to eventually "get back to where I was," which means living independently, driving, and going to anabaptist. We discussed that the likelihood of her making a recovery to where she was prior, is unfortunately not good due to the typical trajectory of progressing chronic illness and multiple hospitalizations. Patient and daughter agree. -We discussed the new undertaking of dialysis. We talked at length about what dialysis is, how it works, and what her life will be like once she is out of the hospital. Talked about some pros and cons of dialysis treatments. Patient is worried about the fact that it will possibly make her feel unwell and that it will take up so much of her time. Patient and daughter are hoping that dialysis may be a temporary measures and that her kidneys may "jump start." I explained that patient is always able to make the decision to stop dialysis in the future if that is what she wishes. This would depend on what patient's quality of life will be like on dialysis and if this is in fact a permanent intervention. Patient feels that she would more-so regret not trying dialysis at all vs. trying it and deciding to stop at a later time. -Discussed code status. Patient first stated that she does want to be a full code and would be okay with CPR, defibrillation, intubation, etc. We talked about this in detail, and I also explained the difference between deteriorating respiratory status requiring intubation vs. cardiac arrest requiring CPR/intubation. Patient and daughter are going to discuss and think about this further. For now, remain FULL CODE. Of note, patient does have a POLST form on file that was completed on 10/27/2019 that indicates full code and full treatment. -Again, patient's goal is to eventually get back home to live independently, but she also understands that she is quite far off from that goal. Will need rehab after hospitalization. -We will see how patient does over the weekend and return on Sunday to follow up and further discuss code status and goals of care. (2) Influenza A: (3) Acute kidney injury superimposed on chronic kidney disease: (4) Acute diastolic CHF (congestive heart failure): (5) Malnutrition: Supervising Physician Co-Signing Physician Notes Chart reviewed, patient seen and examined. Patient had just returned from the OR having a permacath placed-patient's daughter, Asa, at bedside. Patient underwent catheter placement using only local anesthesia. Collaborated with LINDSAY Pinto PE: Patient awake and alert, no acute distress HEENT: EOMI, hearing grossly within normal limits Respirations: Clear breath sounds, diminished right base CV: Regular rate, 1-2+ lower extremity edema Neuro: Alert and oriented x4 Patient has only 1 daughter, Asa-lives in [place]. No grandchildren Agree with above note, assessment and plan as per LINDSAY Pinto-we will continue to follow and address goals of care and CODE STATUS as needed. Patient's goal is to continue with HD, wishes to remain a full code at this time. History of Present Illness Attending Physician: Maureen Mccoy DO History of Present Illness This 74 year old female patient with PMH anemia of chronic disease, CHF, C. difficile colitis, hemorrhagic shock, GERD, hypertension, lupus, history of CVA, CKD stage IV, colon cancer s/p resection in July 2019, and other problems, presented to the hospital 17 days ago with c/o N/V, abdominal pain and SOB. Patient was found to have right sided pneumonia and positive for influenza A. Upon arrival, patient was encephalopathic-- confused and mostly unresponsive for several days. At one point, a stroke alert was called, but MRI showed no new stroke. Patient was started on enteral feedings via NG tube due to her inability to take PO. Eventually, patient's mental status did improve, and she is now fully awake and alert. Tolerating oral nutrition without issue, except that she has a very poor appetite and does not eat/drink well at all. Unfortunately, patient's kidney function has been steadily worsening throughout hospitalization due to ATN. Today, her creatinine is up to 4.94, her urine output is only about 500ml in 24 hours per nephrology's note. Decision has been made to move forward with perma cath placement and to start dialysis. Patient has been in the hospital, whether it was here or [place], seven times since July-- she has been to [facility] and [facility] for rehab, but has not been able to stay well enough to be at home and out of the hospital. She has lost about 40lbs, continues to not eat or drink well. Prior to hospitalization in July, patient was living independently, driving, and was active in her anabaptist and community. Given patient's multiple comorbidities and deteriorating health, palliative care is consulted to discuss goals of care. Thank you kindly for this consult. Palliative care team will follow as needed. Allergies Allergy/AdvReac Type Severity Reaction Status Date / Time Iodinated Contrast Media Allergy Severe HIVES/DIFFICULTY Verified 10/06/19 13:33 SWALLOWING Home Medications Home Medications Medication Instructions Recorded Confirmed Type aspirin 81 mg PO HS 08/19/18 11/05/19 History clopidogrel 75 mg PO QAM 08/19/18 11/05/19 History cyanocobalamin (vitamin B-12) 1,000 mcg PO QAM 08/19/18 11/05/19 History amlodipine 10 mg PO DAILY 08/30/19 11/05/19 History sertraline 50 mg PO DAILY 08/30/19 11/05/19 History Lactobacillus acidoph-L.bulgar 1 tab PO TIDM 10 Days #30 tab 10/01/19 11/05/19 Rx ondansetron HCl 4 mg PO Q8 PRN 10/10/19 11/05/19 History ranitidine HCl 150 mg PO BID 10/10/19 11/05/19 History clonidine HCl 0.1 mg PO BID 30 Days #60 tab 10/13/19 11/05/19 Rx metoprolol tartrate 25 mg PO BID 30 Days #60 tab 10/13/19 11/05/19 Rx hydralazine 25 mg PO TID 11/05/19 11/05/19 History vancomycin PO Q6 11/05/19 History Patient History Medical History Atrophy of left kidney C. difficile colitis (Acute) Cancer MULTIPLE SKIN CANCER REMOVALS (RADIATION FOR SKIN CANCER/UPPER LIP) Carolis disease (Chronic) Chronic diastolic CHF (congestive heart failure) CKD (chronic kidney disease), stage IV (Chronic) Endometriosis GERD (gastroesophageal reflux disease) (Chronic) History of CVA (cerebrovascular accident) (Chronic) 2016, no residual deficits Hyperlipidemia Hypertension (Chronic) Lupus (Chronic) Migraine Mood disorder Osteoarthritis Surgical History History of colon resection (Chronic) Aug 05 2019 at [facility]. Patient stated she had surgery early in the morning and didn't remember waking up until 1 AM. She is unaware of how long the procedure was and she was not intubated post-op. History of colonoscopy History of esophagogastroduodenoscopy (EGD) History of tonsillectomy History of tooth extraction History of total abdominal hysterectomy and bilateral salpingo-oophorectomy S/P laparoscopic cholecystectomy (09/09/19) Laparoscopic Cholecystectomy Dr. 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 Beliefs That Will Affect Care: None marital status: / Current Living Situation: Alone Other Information That Helps Us Care for You: No Feels Safe at Home: Yes Safety Concerns: Feels Safe At This Time Smoking Status: Never smoker Second Hand Exposure: No ; Hx Alcohol Use: No Hx Substance Use: No Review of Systems Constitutional: + weakness and + weight loss Respiratory: no cough and no dyspnea Cardiovascular: + edema; no chest pain Gastrointestinal: + nausea; no abdominal pain and no vomiting Musculoskeletal: no pain Neurologic: no confusion Psychiatric: no anxiety Physical Exam Constitutional: + thin and + frail appearing; no acute distress ENMT: external ear and nose normal, oropharynx normal Respiratory: normal respiratory effort; no labored breathing Cardiovascular: Rate/Rhythm: regular rate and regular rhythm Extremities: + edema Neurologic: moves all extremities and awake; not confused Psychiatric: A+Ox3, euthymic affect Insight: good insight Results & Data Vital Signs (Past 12 Hours) Vital Signs Temp Pulse Pulse Resp BP BP Pulse Ox 11/21/19 12:00 37.7 C H 93 H 20 124/71 93 11/21/19 11:41 36.2 C L 73 18 173/67 H 95 11/21/19 07:40 36.6 C 73 20 165/63 H 95 11/21/19 07:00 72 11/21/19 03:00 36.3 C L 71 20 149/56 H 96 Coding Level of Care Code 91388 Inpt Consult Level 3 Diagnoses Goals of care, counseling/discussion Z71.89 Influenza A J10.1 Acute kidney injury superimposed on chronic kidney disease N17.9; N18.9 Acute diastolic CHF (congestive heart failure) I50.31 Malnutrition E46 Time Spent (min) 70 Time Spent Midlevel 70 minutes with >50% of the time spent at bedside with patient and daughter discussing condition and GOC.
[2019-11-21] MEDS ORDERED: LIDOCAINE HCL 1% 20 ML VIAL ONE (14:40)
[2019-11-21] MEDS ORDERED: HEPARIN SOD (PORCINE) 5,000 UNITS/ML VIAL ONE (14:40)
--- NOTE | 2019-11-21 14:49 | Nephrology Progress Note ---
Date of Service November 21, 2019 Assessment & Plan (1) Acute kidney injury superimposed on CKD: Patient with acute kidney injury on CKD. Baseline creatinine of 1.8-2. Her creatinine is today 4.9 from 4.4 yesterday, slowly worsening past couple of days. Urine output is about 500 mL in 24 hours, stable for 3 days. Etiology likely likely ischemic ATN in setting of poor p.o. intake, recent en cephalopathy, pneumonia, influenza. Patient also with high Vanco levels recently could have nephrotoxic ATN. I discussed with the patient that given worsening acidosis, oliguria and rising creatinine, we need to initiate dialysis. Patient is agreeable. I have consulted vascular surgery for tunneled dialysis catheter placement. Patient has consented to dialysis. -remove gray -daily BMP. Avoid nephrotoxins such as contrast -no need for IV fluids given episode of shortness of breath and oliguria -patient will get 1st dialysis treatment tomorrow for 3 hours. (2) Hypertension: Blood pressure is above target but given intermittent confusion, recent encephalopathy and question of CVA, would avoid lowering the blood pressure too much. Goal systolic of 150-160. -continue po current regimen -hold lasix -continue prn hydralazine (3) Hypokalemia: Patient had ongoing hypokalemia and had required frequent K riders and other aggressive K resuscitation. Has not needed supplementation for several days now but will continue to monitor -daily BMP Admission and Anticipated Discharge Date Admission Date: November 04, 2019 Anticipated date of discharge: 11/26/19 Subjective Patient denies any shortness of breath. She reported nausea but no vomiting. She is anxious about how she will feel with dialysis. Review of Systems Review of Systems: All systems reviewed & are unremarkable except as noted in HPI & below Physical Exam Physical Exam: General exam: Appears comfortable, no acute distress HEENT: Pupils are equal and reactive to light Neck: No JVD, neck is supple trachea is midline Respiratory system: Reduced breath sounds bilaterally. Gastrointestinal: Abdomen is soft, non distended, non tender, bowel sounds are present CVS: Regular rate and rhythm. No murmurs, rubs or gallops Musculoskeletal: No joint or muscle tenderness Extremities: Non tender, no edema, peripheral pulses are present Neuro: Oriented, no tremors, no focal neurological deficits Skin: No rashes Results & Data ([facility]) Vital Signs (Past 12 Hours) Vital Signs Temp Pulse Pulse Resp BP BP Pulse Ox 11/21/19 12:00 37.7 C H 93 H 20 124/71 93 11/21/19 11:41 36.2 C L 73 18 173/67 H 95 11/21/19 07:40 36.6 C 73 20 165/63 H 95 11/21/19 07:00 72 11/21/19 03:00 36.3 C L 71 20 149/56 H 96 Laboratory Results 11/21/19 07:52 11/21/19 11/21/19 07:52 07:52 WBC 10.74 RBC 3.25 L MCV 87.4 MCH 28.6 MCHC 32.7 RDW Std Deviation 53.9 H RDW Coeff of Aurelia 16.8 H Plt Count 450 H MPV 9.9 Albumin 1.8 L (1) Hypertension Hypertension type: essential hypertension Qualified Code(s): I10 - Essential (primary) hypertension
[2019-11-21] MEDS ORDERED: fentaNYL citrate 100 MCG/2 ML VIAL ONE (14:54)
--- NOTE | 2019-11-21 15:28 | Post Operative Brief Note ---
Immediate Post Op Note v1 Date of Surgery November 21, 2019 Pre & Post Diagnosis Operation Date: 11/21/19 14:50 Pre-Op Diagnosis: Acute Renal Failure Post-Op Diagnosis: Acute Renal Failure I identified the patient and participated in the time-out.: Yes Procedure Operation Date: 11/21/19 14:50 Actual Procedures p Insertion of Perm Catheter, Right Internal Jugular Approach, Ultrasound Localization of Right Internal Jugular Vein, Fluoroscopy for Positioning. (Right) - Maximino Grant MD Surgeon Maximino Grant MD Railroad Crane Operator MD Jacob Estimated Blood Loss 3 Findings Consistent with Post-Op Diagnosis Anesthesia Type Local Complications none Disposition Accompanied Patient To Recovery: No Disposition: Recovery Room
--- NOTE | 2019-11-21 15:34 | Procedure Note ---
Angiogram Post Procedure Fluoroscopy Time (minutes): 0.1 Radiation (mGy): 0 Contrast: 0 Post Operative Report Pre & Post Diagnosis Operation Date: 11/21/19 14:50 Pre-Op Diagnosis: Renal Failure Post-Op Diagnosis: Renal Failure I identified the patient and participated in the time-out.: Yes Procedure Operation Date: 11/21/19 14:50 Actual Procedures p Insertion of Perm Catheter, Right Internal Jugular Approach, Ultrasound Localization of Right Internal Jugular Vein, Fluoroscopy for Positioning. (Right) - Maximino Grant MD Surgeon Dr. Rudy Proctor MD Patient Observation Assistant MD Jacob Estimated Blood Loss 3 Findings Consistent with Post-Op Diagnosis patent R IJ Specimens none Drains none Anesthesia Type Local Complications none Disposition Accompanied Patient To Recovery: No Disposition: Recovery Room Indications renal failure Description of Procedure Patient was taken to the angio suite and placed in the supine position. The right side of the neck and chest wall were prepped and draped in a sterile manner. The patient was identified and a timeout performed. Local anesthesia was then administered to the appropriate areas of the neck and chest wall. Ultrasound was then used to locate the right internal jugular vein. The vein compressed easily, had no filing defects, and was patent. The vein was then punctured under direct ultrasound imaging. A guidewire was then passed centrally under fluoroscopic imaging. A stab wound was then made in the anterior chest wall and a 19 cm permcath was passed from the stab wound on the chest wall to the puncture site on the neck. The puncture site was then dilated till the 14Fr peel away sheath was inserted. The permcath was then inserted through the sheath to a central position in the distal superior vena cava. The peel away sheath was then removed. The catheter was then sutured in place using nylon sutures. The puncture was then closed using a 4-0 Vicryl subcuticular suture. Dermabond was used for a dressing on the puncture site. Both ports aspirated and flushed easily and were then packed with heparin. A sterile dressing was applied to the catheter. The patient left the angio suite in good condition and tolerated the procedure well. Dr. Grant was present for the entire procedure I attest to the content of the Intraoperative Record and any orders documented therein. Any exceptions are noted below.
[2019-11-21] MEDS ORDERED: PROCHLORPERAZINE 5 MG in SYRINGE 4 ML IV PRN (15:39)
--- NOTE | 2019-11-21 17:06 | Electrocardiogram Report ---
Test Reason : Blood Pressure : / mmHG Vent. Rate : 081 BPM Atrial Rate : 081 BPM P-R Int : 152 ms QRS Dur : 090 ms QT Int : 444 ms P-R-T Axes : 045 013 065 degrees QTc Int : 515 ms Normal sinus rhythm Left ventricular hypertrophy with repolarization abnormality Prolonged QT Abnormal ECG When compared with ECG of 05-NOV-2019 08:18, Nonspecific T wave abnormality now evident in Lateral leads Confirmed by Dwaine Hagen ([id number]) on 11/21/2019 5:06:17 PM Referred By: Sree Brian Confirmed By:Dwaine Hagen
[2019-11-22] MEDS ORDERED: TRAMADOL HCL 50 MG TABLET PO STA (03:20)
[2019-11-22] MEDS: cloNIDine HCL 0.1 MG TAB PO SCH ×2 (06:08→17:13)
[2019-11-22] MEDS: HydrALAZINE TAB 50 MG TAB PO SCH ×3 (06:08→20:45)
[2019-11-22 06:15] LABS: Hemoglobin 7.9 g/dL (12.0-16.0)
[2019-11-22] MEDS ORDERED: SODIUM CHLORIDE 0.9% 1000ML 1,000 ML IV PRN (07:00)
[2019-11-22] MEDS ORDERED: HEPARIN SOD (PORCINE) 1000 UNIT/ML 10 ML VIAL IV ONE (07:00)
[2019-11-22] MEDS: LACTOBACILLUS ACIDOPHILUS (FLORANEX) TAB PO SCH ×3 (07:52→17:13)
[2019-11-22 08:48] LABS: Hepatitis B Surface Ab Quant < 3.10 mIU/mL (>or=10mIU/mL Immune); Hepatitis B Surface Antibody Non-Immune
[2019-11-22 08:59] LABS: Hepatitis B Surface Antigen Neg (Neg)
--- NOTE | 2019-11-22 09:20 | Nephrology Progress Note ---
Date of Service November 22, 2019 Assessment & Plan (1) Acute kidney injury superimposed on CKD: Patient with acute kidney injury on CKD. Baseline creatinine of 1.8-2. Her creatinine is today 4.9 from 4.4 yesterday, slowly worsening past couple of days. Urine output is about 500 mL in 24 hours, stable for 3 days. Etiology likely likely ischemic ATN in setting of poor p.o. intake, recent encephalopathy, pneumonia, influenza. Patient also with high Vanco levels recently could have nephrotoxic ATN. I discussed with the patient that given worsening acidosis, oliguria and rising creatinine, we need to initiate dialysis. Patient is agreeable. She had a tunneled dialysis catheter placed on 11/21/2019. -She will have 2.5 hours of dialysis today with target UF of 1 L. Next dialysis will be on Sunday. -Avoid nephrotoxins such as contrast -From renal standpoint, patient can be discharged. If she goes to her home medically a failed she should be going to [facility] dialysis in [place] and Dr. Nagel. Case management follow-up. (2) Hypertension: Blood pressure is above target but given intermittent confusion, recent encephalopathy and question of CVA, would avoid lowering the blood pressure too much. Goal systolic of 150-160. -continue po current regimen -hold lasix -continue prn hydralazine (3) Hypokalemia: Patient had ongoing hypokalemia and had required frequent K riders and other aggressive K resuscitation. She will be dialyzed on a 3K bath. Admission and Anticipated Discharge Date Admission Date: November 04, 2019 Anticipated date of discharge: 11/26/19 Subjective She feels well this morning denies any shortness of breath. She had a tunneled dialysis catheter placed yesterday complicated by bleeding around the catheter site. Patient was seen and examined while on dialysis. Review of Systems Review of Systems: All systems reviewed & are unremarkable except as noted in HPI & below Physical Exam Physical Exam: General exam: Appears comfortable, no acute distress HEENT: Pupils are equal and reactive to light Neck: No JVD, neck is supple trachea is midline Respiratory system: Clear breath sounds bilaterally. Gastrointestinal: Abdomen is soft, non distended, non tender, bowel sounds are present CVS: Regular rate and rhythm. No murmurs, rubs or gallops Musculoskeletal: No joint or muscle tenderness Extremities: Non tender, 1+ edema, peripheral pulses are present Neuro: Oriented, no tremors, no focal neurological deficits Skin: No rashes Access: Right tunneled IJ Results & Data ([facility]) Vital Signs (Past 12 Hours) Vital Signs Temp Pulse Pulse Resp BP Pulse Ox 11/22/19 07:14 87 11/22/19 07:12 36.8 C 79 18 171/63 H 97 11/22/19 03:25 36.9 C 77 18 168/55 H 96 11/22/19 01:23 83 11/21/19 23:00 36.8 C 77 18 148/57 H 96 (1) Hypertension Hypertension type: essential hypertension Qualified Code(s): I10 - Essential (primary) hypertension
[2019-11-22 09:34] LABS: BUN Creatinine Ratio 12.4 (10-20); Calcium 7.9 mg/dl (8.5-10.1); Creatinine Clr Calc Pharmacy 8.5 ml/min; Est GFR (African American) 8.1; Potassium 3.8 mmol/L (3.5-5.1)
[2019-11-22] MEDS: AMLODIPINE BESYLATE 5 MG TAB PO SCH (12:51)
[2019-11-22] MEDS: FAMOTIDINE 20 MG TAB PO SCH (12:51)
--- NOTE | 2019-11-22 15:48 | Hospitalist Progress Note ---
Date of Service November 22, 2019 Assessment & Plan (1) Acute kidney injury superimposed on chronic kidney disease: Likely related to ATN after recent infections +/- medications. Hemodialysis catheter placement today in preparation for dialysis initiation over the weekend. (2) Acute hypoxemic respiratory failure: 2/2 Flu A and bilateral pneumonia. S/P Tamiflu and completed abx course. Hypoxia has resolved and she is doing well clinically. Recommend repeat CXR as outpatient (3) HTN (hypertension): Increased blood pressure, possibly secondary to worsening renal function. Limited options with respect to medications. Appreciate nephro input on this. Renal/low salt diet. Hydralazine PRN (4) Anemia: Likely multifactorial including chronic disease, CKD Stage IV and frequent phlebotomy over multiple hospitalizations reported in the past couple of months. Now also has an acute component of blood loss from bleeding at the dialysis catheter site overnight. May need to consider more blood but will watch H/H in am prior to considering this. (5) Malnutrition: from multiple hospitalizations and recent infections/comorbidities. Nutrition to help with supplements and calorie counts. (6) Generalized weakness: 2/2 multiple hospitalizations. rehab planned at discharge. (7) Physical deconditioning: As above. (8) Bradycardia: Held toprol XL, which was being given to her for uncertain reasons. She has no palpitations or underlying cardiac arrhythmia that is apparent, and this medication is not an effective blood pressure medication, also interacting with her clonidine. Will stop altogether at this time. Bradycardia has since resolved off this medication for several days now. (9) H/O TIA (transient ischemic attack) and stroke: Pt was on ASA and Plavix at home prior to arrival. Neurology saw the patient here and recommended a baby aspirin when she was awake enough to start swallowing again. These agents had been held around the hemodialysis catheter placement and the initiation of HD. Will plan to restart only ASA 81mg daily tomorrow morning. No known CAD or stents in the past. (10) DVT prophylaxis: Will hold heparin and start in am after profuse bleeding from catheter site last night. Full Code [facility] medically [facility] Admission and Anticipated Discharge Date Admission Date: November 04, 2019 Anticipated date of discharge: 11/26/19 Subjective Pt feels well today Denies pain HD went well Tunneled HD catheter stopped bleeding overnight and is functioning well Daughter is at bedside and we all discussed the plan. Discussed the morning labwork. Touched on the anemia Review of Systems Review of Systems: All systems reviewed & are unremarkable except as noted in Subjective Physical Exam Physical Exam: CONSTITUTIONAL: thin, vitals as above, generally ill-appearing but appears less fatigued today EYES: normal conjunctivae, no scleral icterus ENT: MMM RESPIRATORY: clear to auscultation bilaterally, no crackles, rales or wheezes, normal respiratory effort CARDIOVASCULAR: regular rate and rhythm, S1 and 2 heard without murmurs, gallops or rubs, no JVD, no peripheral edema CHEST: tunneled catheter in place GASTROINTESTINAL: soft, nontender, nondistended MUSCULOSKELETAL: generalized weakness, no gross focal deficits. SKIN: warm and dry NEUROLOGIC: CN 2-12 grossly intact, no sensory deficit, normal cognition, normal speech, no gross focal deficits. PSYCHIATRIC: alert cooperative and oriented Results & Data ([facility]) Vital Signs (Past 12 Hours) Vital Signs Temp Pulse Pulse Pulse Resp BP BP 11/22/19 15:18 36.8 C 80 18 166/68 H 11/22/19 12:20 37.0 C 77 159/66 H 11/22/19 11:40 76 163/68 H 11/22/19 11:20 73 146/60 H 11/22/19 11:00 72 135/59 L 11/22/19 10:40 73 136/57 L 11/22/19 10:20 75 154/67 H 11/22/19 10:00 73 138/61 11/22/19 09:40 72 142/61 H 11/22/19 09:03 36.9 C 77 11/22/19 07:14 87 11/22/19 07:12 36.8 C 79 18 171/63 H Pulse Ox 11/22/19 15:18 98 11/22/19 12:20 11/22/19 11:40 11/22/19 11:20 11/22/19 11:00 11/22/19 10:40 11/22/19 10:20 11/22/19 10:00 11/22/19 09:40 11/22/19 09:03 11/22/19 07:14 11/22/19 07:12 97 Laboratory Results Short CBC 11/22/19 Range/Units 05:57 Hgb 7.9 L (12.0-16.0) g/dL Hct 24.0 L (37-47) % BMP 11/22/19 08:31 Sodium 137 Potassium 3.8 Chloride 110 H Carbon Dioxide 15 L BUN 68 H Creatinine 5.47 H* D Glucose 80 Calcium 7.9 L Medications Administered Current Inpatient Medications Acetaminophen (Tylenol) 650 mg PO Q6 PRN PRN Reason: Pain Stop: 12/11/19 14:53 Last Admin: 11/21/19 21:44 Dose: 650 mg Documented by: Albuterol (Duoneb) 3 ml NEB Q4R PRN PRN Reason: Shortness Of Breath Stop: 12/05/19 02:59 A[facility]od[facility] Stop: 12/11/19 19:29 Last Admin: 11/22/19 12:51 Dose: 10 mg Documented by: Atorvastatin Calcium (Lipitor) [facility] Stop: 12/12/19 08:59 Last Admin: 11/19/19 09:08 Dose: 40 mg Documented by: Clonidine HCl (Catapres) 0.1 mg PO Q12H [facility] Stop: 12/13/19 05:59 Last Admin: 11/22/19 06:08 Dose: 0.1 mg Documented by: Cyanocobalamin (Vitamin B-12) 1,000 mcg PO QAM [facility] Stop: 12/05/19 08:59 Last Admin: 11/08/19 08:20 Dose: 1,000 mcg Documented by: Famotidine (Pepcid) 20 mg PO DAILY [facility] Stop: 12/06/19 08:59 Last Admin: 11/22/19 12:51 Dose: 20 mg Documented by: Hydralazine HCl (Apresoline) 50 mg PO Q8 [facility] Stop: 12/21/19 15:59 Last Admin: 11/22/19 12:52 Dose: 50 mg Documented by: Promethazine HCl 12.5 mg/ (Sodium Chloride) 50.5 mls @ 202 mls/hr IV Q6H PRN PRN Reason: Nausea And Vomiting Stop: 12/06/19 20:12 Last Infusion: 11/21/19 09:59 Dose: Infused Documented by: Prochlorperazine 5 mg/ Syringe 5 mls @ 5 mls/min IV Q6H PRN PRN Reason: Nausea And Vomiting Stop: 12/21/19 15:38 Lactobacillus Acidophilus (Floranex) 1 tab PO TIDM [facility] Stop: 12/05/19 07:59 Last Admin: 11/22/19 12:51 Dose: 1 tab Documented by: Metoprolol Tartrate (Lopressor) 75 mg PO BID [facility] Stop: 12/16/19 06:14 Last Admin: 11/19/19 08:40 Dose: Not Given Documented by: Miconazole Nitrate (Desenex) 1 appln EXT PRN PRN PRN Reason: Affected Skin Folds Stop: 12/19/19 12:07 Last Admin: 11/20/19 13:00 Dose: 1 appln Documented by:
[2019-11-23 05:22] LABS: Hematocrit (blood only) 22.8 % (37-47); Hemoglobin 7.5 g/dL (12.0-16.0); Mean Corpuscular Hgb Conc 32.9 g/dL (32-36); Mean Platelet Volume 9.9 fL (7.4-10.4); Platelet Count 344 K/uL (130-400); RDW Coefficient of Variation 16.8 % (11.5-14.5); RDW Standard Deviation 54.4 fL (36.4-46.3); Red Blood Count 2.59 M/uL (4.2-5.4); White Blood Count 8.42 K/uL (4.8-10.8)
[2019-11-23] MEDS: HydrALAZINE TAB 50 MG TAB PO SCH ×3 (05:25→21:50)
[2019-11-23] MEDS: cloNIDine HCL 0.1 MG TAB PO SCH (05:26)
[2019-11-23 06:11] LABS: Calcium 7.7 mg/dl (8.5-10.1); Est GFR (African American) 15.1; Magnesium 1.6 mg/dl (1.8-2.4); Phosphorus 3.8 mg/dl (2.5-4.9); Potassium 3.5 mmol/L (3.5-5.1)
[2019-11-23] MEDS: ASPIRIN 81 MG ECTAB PO SCH (08:12)
[2019-11-23] MEDS: LACTOBACILLUS ACIDOPHILUS (FLORANEX) TAB PO SCH ×3 (08:23→16:34)
[2019-11-23] MEDS: FAMOTIDINE 20 MG TAB PO SCH (08:24)
[2019-11-23] MEDS: AMLODIPINE BESYLATE 5 MG TAB PO SCH (08:24)
[2019-11-23] MEDS: HEPARIN SOD 5,000 UNIT/0.5 ML VIAL SQ SCH ×3 (08:25→21:47)
[2019-11-23] MEDS: CYANOCOBALAMIN 500 MCG TABLET (VITAMIN B-12) PO SCH (09:05)
[2019-11-23] MEDS: PROMETHAZINE HCL 12.5 MG in SODIUM CHLORIDE 0.9% 50 ML IV PRN (09:34)
[2019-11-23] MEDS: MAGNESIUM SULFATE / D5W 1 GM/100 ML BAG IV SCH ×2 (09:38→10:29)
--- NOTE | 2019-11-23 10:11 | Nephrology Progress Note ---
Date of Service November 23, 2019 Assessment & Plan (1) Acute kidney injury superimposed on CKD: Patient with acute kidney injury on CKD. Baseline creatinine of 1.8-2. Her creatinine is today 4.9 from 4.4 yesterday, slowly worsening past couple of days. Urine output is about 500 mL in 24 hours, stable for 3 days. Etiology likely likely ischemic ATN in setting of poor p.o. intake, recent en cephalopathy, pneumonia, influenza. Patient also with high Vanco levels recently could have nephrotoxic ATN. I discussed with the patient that given worsening acidosis, oliguria and rising creatinine, we need to initiate dialysis. Patient is agreeable. She had a tunneled dialysis catheter placed on 11/21/2019. -She had 2.5 hours of dialysis 11/21 with target UF of 1 L. Next dialysis will be on Sunday. -Avoid nephrotoxins such as contrast -From renal standpoint, patient can be discharged. If she goes home, she should be going to [facility] dialysis in [place] and Dr. Nagel. Case management follow-up. (2) Hypertension: Blood pressure is above target but given intermittent confusion, recent encephalopathy and question of CVA, would avoid lowering the blood pressure too much. Goal systolic of 150-160. -continue po current regimen -hold lasix -continue prn hydralazine (3) Hypokalemia: Patient had ongoing hypokalemia and had required frequent K riders and other aggressive K resuscitation. She will be dialyzed on a 3K bath. (4) Acute blood loss anemia: Patient with acute blood loss anemia and possible anemia of renal disease. Unable to give Epogen due to recent history of cancer. Monitor and transfuse as needed. Admission and Anticipated Discharge Date Admission Date: November 04, 2019 Anticipated date of discharge: 11/26/19 Subjective She had her first dialysis on 11/22/2019. No dizziness or shortness of breath. Still has poor appetite and nausea. She is not eating well. Review of Systems Review of Systems: All systems reviewed & are unremarkable except as noted in HPI & below Physical Exam 2 Physical Exam: General exam: Appears comfortable, no acute distress HEENT: Pupils are equal and reactive to light Neck: No JVD, neck is supple trachea is midline Respiratory system: Clear breath sounds bilaterally. Gastrointestinal: Abdomen is soft, non distended, non tender, bowel sounds are present CVS: Regular rate and rhythm. No murmurs, rubs or gallops Musculoskeletal: No joint or muscle tenderness Extremities: Non tender, 1+ edema in the upper extremities Neuro: Oriented, no tremors, no focal neurological deficits Skin: No rashes Access: Right IJ Results & Data ([facility]) Vital Signs (Past 12 Hours) Vital Signs Temp Pulse Resp BP BP Pulse Ox 11/23/19 07:10 36.8 C 73 18 127/56 L 96 11/22/19 23:46 37.2 C 86 18 158/52 H 96 Laboratory Results 11/23/19 05:08 11/23/19 11/23/19 05:08 05:08 WBC 8.42 RBC 2.59 L MCV 88.0 MCH 29.0 MCHC 32.9 RDW Std Deviation 54.4 H RDW Coeff of Aurelia 16.8 H Plt Count 344 MPV 9.9 Phosphorus 3.8 (1) Hypertension Hypertension type: essential hypertension Qualified Code(s): I10 - Essential (primary) hypertension
--- NOTE | 2019-11-23 12:04 | Hospitalist Progress Note ---
Date of Service November 23, 2019 Assessment & Plan (1) Acute kidney injury superimposed on chronic kidney disease: Likely related to ATN after recent infections +/- medications. Dialysis yesterday with improvement in symptoms and lab numbers. (2) HTN (hypertension): Uncontrolled blood pressure on hydralazine, clonidine prior to initiating dialysis. However, this is more improved. We did discuss the drowsiness as a possible side effect from clonidine and the patient would like to hold this medication while in the hospital moving forward. Continue amlodipine and monitoring blood pressure closely. (3) Anemia: Likely multifactorial including chronic disease, CKD Stage IV and frequent phlebotomy over multiple hospitalizations reported in the past couple of months. Now also has an acute component of blood loss from bleeding at the dialysis catheter site overnight. Recommending 2 further units of blood to be given today. Repeat H&H in a.m. (4) Acute hypoxemic respiratory failure: 2/2 Flu A and bilateral pneumonia. S/P Tamiflu and completed abx course. Hypoxia has resolved and she is doing well clinically. Recommend repeat CXR as outpatient (5) Malnutrition: from multiple hospitalizations and recent infections/comorbidities. Nutrition to help with supplements and calorie counts. Patient has had a return of her appetite after initiation of dialysis yesterday. (6) Generalized weakness: 2/2 multiple hospitalizations. rehab planned at discharge. (7) Physical deconditioning: As above. (8) Bradycardia: Discontinue Toprol-XL. Since discontinuation of this, bradycardia has resolved. No hard line indication for continuing Toprol-XL. Please discontinue this at discharge. (9) H/O TIA (transient ischemic attack) and stroke: Pt was on ASA and Plavix at home prior to arrival. Neurology saw the patient here and recommended a baby aspirin when she was awake enough to start swallowing again. These agents had been held around the hemodialysis catheter placement and the initiation of HD. No known CAD or stents in the past. The patient had a history of stroke while on baby aspirin and Plavix was added. With her current weakness and comorbidities, would continue aspirin alone and consider restarting Plavix as outpatient once the patient has improved to baseline clinically. This was discussed with the patient and her daughter and they agree with this. (10) DVT prophylaxis: Heparin Full Code Dispo-to SNF when medically stable Maureen Mccoy DO [facility]ist Admission and Anticipated Discharge Date Admission Date: November 04, 2019 Anticipated date of discharge: 11/26/19 Subjective Patient reporting feeling well Her appetite is increased today She denies lightheadedness, chest pain, shortness of breath. Review of Systems Review of Systems: All systems reviewed & are unremarkable except as noted in Subjective Physical Exam Physical Exam: CONSTITUTIONAL: thin, vitals as above, no acute distress EYES: normal conjunctivae, no scleral icterus ENT: MMM RESPIRATORY: clear to auscultation bilaterally, no crackles, rales or wheezes, normal respiratory effort CARDIOVASCULAR: regular rate and rhythm, 3 out of 6 systolic ejection murmur heard throughout precordium (this has been heard on every exam this past week but was incorrectly documented as no murmur), no gallops or rubs, no JVD, no peripheral edema CHEST: tunneled catheter in place, no active bleeding, covered with dressing that is clean dry and intact. GASTROINTESTINAL: soft, nontender, nondistended MUSCULOSKELETAL: generalized weakness, no gross focal deficits. SKIN: warm and dry NEUROLOGIC: CN 2-12 grossly intact, no sensory deficit, normal cognition, normal speech, no gross focal deficits. PSYCHIATRIC: alert cooperative and oriented Results & Data ([facility]) Vital Signs (Past 12 Hours) Vital Signs Temp Pulse Resp BP BP Pulse Ox 11/23/19 07:10 36.8 C 73 18 127/56 L 96 11/22/19 23:46 37.2 C 86 18 158/52 H 96 Laboratory Results Short CBC 11/23/19 Range/Units 05:08 WBC 8.42 (4.8-10.8) K/uL Hgb 7.5 L (12.0-16.0) g/dL Hct 22.8 L (37-47) % Plt Count 344 (130-400) K/uL BMP 11/23/19 05:08 Sodium 139 Potassium 3.5 Chloride 106 Carbon Dioxide 25 BUN 26 H D Creatinine 3.28 H D Glucose 70 Calcium 7.7 L Medications Administered Current Inpatient Medications Acetaminophen (Tylenol) 650 mg PO Q6 PRN PRN Reason: Pain Stop: 12/11/19 14:53 Last Admin: 11/21/19 21:44 Dose: 650 mg Documented by: Albuterol (Duoneb) 3 ml NEB Q4R PRN PRN Reason: Shortness Of Breath Stop: 12/05/19 02:59 Amlodipine Besylate (Norvasc) 10 mg PO [facility] Stop: 12/11/19 19:29 Last Admin: 11/23/19 08:24 Dose: 10 mg Documented by: Aspirin (Ecotrin Ectab) 81 mg PO QAM [facility] Stop: 12/23/19 08:59 Last Admin: 11/23/19 08:12 Dose: 81 mg Documented by: Atorvastatin Calcium (Lipitor) 40 mg PO [facility] Stop: 12/12/19 08:59 Last Admin: 11/19/19 09:08 Dose: 40 mg Documented by: Clonidine HCl (Catapres) 0.1 mg PO Q12H [facility] Stop: 12/13/19 05:59 Last Admin: 11/23/19 05:26 Dose: 0.1 mg Documented by: Cyanocobalamin (Vitamin B-12) 1,000 mcg PO QAM [facility] Stop: 12/05/19 08:59 Last Admin: 11/23/19 09:05 Dose: 1,000 mcg Documented by: Famotidine (Pepcid) 20 mg PO DAILY [facility] Stop: 12/06/19 08:59 Last Admin: 11/23/19 08:24 Dose: 20 mg Documented by: Heparin Sodium (Porcine) (Heparin Sodium (Porcine)) 5,000 units SQ Q8 [facility] Stop: 12/23/19 08:59 Last Admin: 11/23/19 08:25 Dose: 5,000 units Documented by: Hydralazine HCl (Apresoline) 50 mg PO Q8 [facility] Stop: 12/21/19 15:59 Last Admin: 11/23/19 05:25 Dose: 50 mg Documented by: Promethazine HCl 12.5 mg/ (Sodium Chloride) 50.5 mls @ 202 mls/hr IV Q6H PRN PRN Reason: Nausea And Vomiting Stop: 12/06/19 20:12 Last Infusion: 11/23/19 10:08 Dose: Infused Documented by: Prochlorperazine 5 mg/ Syringe 5 mls @ 5 mls/min IV Q6H PRN PRN Reason: Nausea And Vomiting Stop: 12/21/19 15:38 Lactobacillus Acidophilus (Floranex) 1 tab PO [facility]M [facility] Stop: 12/05/19 07:59 Last Admin: 11/23/19 08:23 Dose: 1 tab Documented by: Metoprolol Tartrate (Lopressor) 75 mg PO BID [facility] Stop: 12/16/19 06:14 Last Admin: 11/19/19 08:40 Dose: Not Given Documented by: Miconazole Nitrate (Desenex) 1 appln EXT PRN PRN PRN Reason: Affected Skin Folds Stop: 12/19/19 12:07 Last Admin: 11/20/19 13:00 Dose: 1 appln Documented by:
[2019-11-23] MEDS ORDERED: SODIUM CHLORIDE 0.9% 250 ML IV PRN (14:02)
[2019-11-23] MEDS ORDERED: ACETAMINOPHEN 325 MG TAB PO SCH (14:30)
[2019-11-23] MEDS: SERTRALINE HCL 50 MG TABLET PO SCH (14:42)
[2019-11-23] MEDS: FUROSEMIDE 40 MG in SYRINGE 0 ML IV SCH ×2 (14:42→18:08)
[2019-11-24] MEDS: HEPARIN SOD 5,000 UNIT/0.5 ML VIAL SQ SCH (00:34)
[2019-11-24] MEDS: HydrALAZINE TAB 50 MG TAB PO SCH ×3 (05:02→20:46)
[2019-11-24 06:05] LABS: Hematocrit (blood only) 29.2 % (37-47); Hemoglobin 9.9 g/dL (12.0-16.0); Mean Corpuscular Hemoglobin 29.2 pg (25-34); Mean Corpuscular Hgb Conc 33.9 g/dL (32-36); Mean Corpuscular Volume 86.1 fL (80-100); Mean Platelet Volume 10.1 fL (7.4-10.4); Platelet Count 307 K/uL (130-400); RDW Coefficient of Variation 16.2 % (11.5-14.5); RDW Standard Deviation 50.9 fL (36.4-46.3); Red Blood Count 3.39 M/uL (4.2-5.4); White Blood Count 8.07 K/uL (4.8-10.8)
[2019-11-24 06:23] LABS: INR 1.2 (0.9-1.1); Partial Thromboplastin Time 28.5 Seconds (21.0-31.0)
[2019-11-24 06:43] LABS: BUN Creatinine Ratio 7.5 (10-20); Calcium 7.7 mg/dl (8.5-10.1); Creatinine Clr Calc Pharmacy 10.1 ml/min; Est GFR (African American) 11.1; Est GFR (Non-African American) 9.5; Magnesium 2.4 mg/dl (1.8-2.4); Potassium 3.5 mmol/L (3.5-5.1)
--- NOTE | 2019-11-24 07:04 | Hospitalist Progress Note ---
Date of Service November 24, 2019 Assessment & Plan (1) Acute kidney injury superimposed on chronic kidney disease: Likely related to ATN after recent infections +/- medications. Dialysis yesterday with improvement in symptoms and lab numbers. (2) HTN (hypertension): Uncontrolled blood pressure on hydralazine, clonidine prior to initiating dialysis. However, this is more improved. We did discuss the drowsiness as a possible side effect from clonidine and the patient would like to hold this medication while in the hospital moving forward. Continue amlodipine and monitoring blood pressure closely. (3) Anemia: Likely multifactorial including chronic disease, CKD Stage IV and frequent phlebotomy over multiple hospitalizations reported in the past couple of months. Now also has an acute component of blood loss from bleeding at the dialysis catheter site overnight (4) Acute hypoxemic respiratory failure: 2/2 Flu A and bilateral pneumonia. S/P Tamiflu and completed abx course. Hypoxia has resolved and she is doing well clinically. Recommend repeat CXR as outpatient (5) Malnutrition: from multiple hospitalizations and recent infections/comorbidities. Nutrition to help with supplements and calorie counts. Patient has had a return of her appetite after initiation of dialysis yesterday. (6) Generalized weakness: 2/2 multiple hospitalizations. rehab planned at discharge. (7) Physical deconditioning: As above. (8) Bradycardia: Discontinue Toprol-XL. Since discontinuation of this, bradycardia has resolved. No hard line indication for continuing Toprol-XL. Please discontinue this at discharge. (9) H/O TIA (transient ischemic attack) and stroke: Pt was on ASA and Plavix at home prior to arrival. Neurology saw the patient here and recommended a baby aspirin when she was awake enough to start swallowing again. These agents had been held around the hemodialysis catheter placement and the initiation of HD. No known CAD or stents in the past. The patient had a history of stroke while on baby aspirin and Plavix was added. With her current weakness and comorbidities, would continue aspirin alone and consider restarting Plavix as outpatient once the patient has improved to baseline clinically. This was discussed with the patient and her daughter and they agree with this. (10) DVT prophylaxis: Heparin Full Code Dispo-to SNF when medically stable ROS-No Headache, No Visual Changes, No Nausea, No Vomiting, No Fever, No Chills, No Neck Pain or Stiffness, No Chest Pain, No Palpitations, No SOB, No ALDRIDGE, No Cough, No Sputum, No Wheezing, No Abdominal Pain, No Diarrhea, No Hematemesis, No Hemoptysis, No Unexpected Weight Loss, No Flank pain, No Melena, No Hematochezia, No Frequency, No Urgency, No Burning, No Hematuria, No Rashes, No Diaphoresis. Appetite is improving Physical Exam Gen-AAO x 3, NAD, Afebrile Head-NCAT, EOMI, PERRLA, Anicteric Sclera, No Posterior Pharyngeal Erythema Neck-Supple, No JVD, No Thyromegaly, No Masses, No LAD, No Bruits Lungs-Clear to Auscultation Bilaterally, No Rales, No Rhonchi, No Wheezing, No Crepitus Chest-No S4, +S1, +S2, No S3, No Murmurs, No Rubs, No Gallops, No Ectopy Abdomen-Soft, Bowel Sounds Present, Non Tender, Non Distended, No Hepatomegaly, No Splenomegaly, No Palpable Masses, No Rebound, No Rigidity, No Guarding Musculoskeletal-Full Range of Motion Bilaterally, No CVAT Extremities-No Cyanosis, No Clubbing, No Edema Nuero-Cranial Nerves II-XII grossly intact, Motor WNL, DTRs WNL, Strength WNL, Non Focal Psych-Normal Mood Admission and Anticipated Discharge Date Admission Date: November 04, 2019 Anticipated date of discharge: 11/27/19 Results & Data ([facility]) Vital Signs (Past 12 Hours) Vital Signs Temp Pulse Resp BP Pulse Ox 11/23/19 22:50 37.0 C 79 17 163/66 H 97 11/23/19 21:50 36.9 C 79 16 164/66 H 97 11/23/19 20:45 36.9 C 80 17 154/64 H 96 11/23/19 20:20 36.9 C 85 16 157/61 H 96 11/23/19 20:05 37.0 C 78 18 162/66 H 96 11/23/19 19:48 36.9 C 78 18 158/65 H 96 11/23/19 19:47 37.0 C 80 18 157/65 H 96 11/23/19 19:11 37.0 C 80 17 157/65 H 96
[2019-11-24] MEDS: AMLODIPINE BESYLATE 5 MG TAB PO SCH (08:54)
[2019-11-24] MEDS: FAMOTIDINE 20 MG TAB PO SCH (08:54)
[2019-11-24] MEDS: LACTOBACILLUS ACIDOPHILUS (FLORANEX) TAB PO SCH ×3 (08:54→16:01)
[2019-11-24] MEDS: CYANOCOBALAMIN 500 MCG TABLET (VITAMIN B-12) PO SCH (08:55)
[2019-11-24] MEDS: ASPIRIN 81 MG ECTAB PO SCH (08:55)
[2019-11-24] MEDS: SERTRALINE HCL 50 MG TABLET PO SCH (08:55)
[2019-11-24] MEDS: PROMETHAZINE HCL 12.5 MG in SODIUM CHLORIDE 0.9% 50 ML IV PRN (09:06)
[2019-11-24] MEDS ORDERED: PROTAMINE SULFATE 25 MG in DEXTROSE 5% 50 ML IV ONE ×2 (11:00→14:45)
[2019-11-24] MEDS ORDERED: PHYTONADIONE PED 1 MG, ORA-SWEET SYRUP 2.25 ML, ORA-PLUS SUSP VEHICLE 2.25 ML, BARCODE ... PO ONE (14:04)
[2019-11-24 14:05] LABS: Fibrinogen 320 mg/dl (184-400)
[2019-11-24] MEDS ORDERED: SODIUM CHLORIDE 0.9% 250 ML IV PRN (14:05)
[2019-11-24 14:09] LABS: D Dimer 1840 ug/L FEU (0-500)
--- NOTE | 2019-11-24 14:15 | Nephrology Progress Note ---
Date of Service November 24, 2019 Assessment & Plan (1) Acute kidney injury superimposed on CKD: Patient with acute kidney injury on CKD. Baseline creatinine of 1.8-2. Her creatinine is today 4.9 from 4.4 yesterday, slowly worsening past couple of days. Urine output is about 500 mL in 24 hours, stable for 3 days. Etiology likely likely ischemic ATN in setting of poor p.o. intake, recent en cephalopathy, pneumonia, influenza. Patient also with high Vanco levels recently could have nephrotoxic ATN. I discussed with the patient that given worsening acidosis, oliguria and rising creatinine, we need to initiate dialysis. Patient is agreeable. She had a tunneled dialysis catheter placed on 11/21/2019. -She had 2.5 hours of dialysis 11/21 with target UF of 1 L. We will hold off dialysis today due to active bleeding. Next dialysis will be tomorrow. -Avoid nephrotoxins such as contrast -If discharged, she will be going to [facility] dialysis in [place] and Dr. Nagel. Case management follow-up. (2) Hypertension: Blood pressure is above target but given intermittent confusion, recent encephalopathy and question of CVA, would avoid lowering the blood pressure too much. Goal systolic of 150-160. -continue po current regimen -hold lasix -continue prn hydralazine (3) Hypokalemia: Patient had ongoing hypokalemia and had required frequent K riders and other aggressive K resuscitation. She will be dialyzed on a 3K bath. (4) Acute blood loss anemia: Patient with acute blood loss anemia and possible anemia of renal disease. Unable to give Epogen due to recent history of cancer. Monitor and transfuse as needed. Agree with Vit k. Will avoid heparin with HD Admission and Anticipated Discharge Date Admission Date: November 04, 2019 Anticipated date of discharge: 11/27/19 Subjective Patient had episode of bleeding last night after heparin injection. She has been packed 3 times. She is still actively bleeding from the injection site on the right lower abdominal quadrant. No shortness of breath. She had dialysis on Sunday. Creatinine is up trending. Review of Systems Review of Systems: All systems reviewed & are unremarkable except as noted in HPI & below Physical Exam Physical Exam: General exam: Appears comfortable, no acute distress HEENT: Pupils are equal and reactive to light Neck: No JVD, neck is supple trachea is midline Respiratory system: Clear breath sounds bilaterally. Gastrointestinal: Abdomen is soft, non distended, non tender, bowel sounds are present. Beddings are soiled with blood. Dressing on the abdomen is oozing with blood CVS: Regular rate and rhythm. No murmurs, rubs or gallops Musculoskeletal: No joint or muscle tenderness Extremities: Non tender, no edema, peripheral pulses are present Neuro: Oriented, no tremors, no focal neurological deficits Skin: No rashes Access: Right IJ Results & Data ([facility]) Vital Signs (Past 12 Hours) Vital Signs Temp Pulse Resp BP Pulse Ox 11/24/19 12:01 36.4 C L 79 20 148/66 H 97 Laboratory Results 11/24/19 05:43 11/24/19 05:43 WBC 8.07 RBC 3.39 L MCV 86.1 MCH 29.2 MCHC 33.9 RDW Std Deviation 50.9 H RDW Coeff of Aurelia 16.2 H Plt Count 307 MPV 10.1 (1) Hypertension Hypertension type: essential hypertension Qualified Code(s): I10 - Essential (primary) hypertension
[2019-11-24] MEDS ORDERED: OXYMETAZOLINE 0.05% 30 ML BTL ONE (15:24)
--- NOTE | 2019-11-24 15:51 | Palliative Care Progress Note ---
Date of Service November 24, 2019 Assessment & Plan (1) Goals of care, counseling/discussion: -Follow up visit today to see how patient is tolerating dialysis and if she has changed her mind on code status. -Patient was on phone during visit. She apparently tolerated short dialysis treatment well on Sunday. Is to have another treatment today. -No new complaints. We will continue to follow periocially throughout hospitalization. (2) Influenza A: (3) Acute kidney injury superimposed on chronic kidney disease: (4) Acute diastolic CHF (congestive heart failure): (5) Malnutrition: Subjective Patient is sitting up in chair talking on phone during my brief visit. She has no complaints. Tolerated a short dialysis treatment on Sunday and is to have another today. Review of Systems Review of Systems: no pain, discomfort or SOB Physical Exam Constitutional: + thin and + frail appearing; no acute distress ENMT: external ear and nose normal, oropharynx normal Respiratory: normal respiratory effort; no labored breathing Cardiovascular: Rate/Rhythm: regular rate and regular rhythm Extremities: + edema Neurologic: moves all extremities and awake; not confused Psychiatric: A+Ox3, euthymic affect Insight: good insight Results & Data Vital Signs (Past 12 Hours) Vital Signs Temp Pulse Pulse Resp BP BP Pulse Ox 11/24/19 15:25 37.0 C 84 18 145/68 H 98 11/24/19 15:10 36.6 C 89 18 172/65 H 98 11/24/19 12:01 36.4 C L 79 20 148/66 H 97 Supervising Physician Co-Signing Physician Notes Chart reviewed, patient seen and examined. Patient's daughter, Asa, at bedside. Patient unable to have dialysis today due to increased bleeding from Permacath site, plan for HD tomorrow. Pt required transfusion over the weekend for bleeding from Permacath site. Collaborated with LINDSAY Pinto PE: Patient awake and alert, no acute distress HEENT: EOMI, hearing grossly within normal limits Respirations: Clear breath sounds, diminished right base CV: Regular rate, 1-2+ lower extremity edema - unchanged Neuro: Alert and oriented x4 Patient has only 1 daughter, Asa-lives in [place]. No grandchildren Agree with above note, assessment and plan as per LINDSAY Pinto-we will continue to follow and address goals of care and CODE STATUS as needed. Patient's goal is to continue with HD, wishes to remain a full code at this time. Discussed withpt and daughter seeing if pt can tolerate HD and remove fluid with an albumin of `1.8. Coding Level of Care Code 76520 Subseq Hosp Care Lvl 3 Diagnoses Goals of care, counseling/discussion Z71.89 Influenza A J10.1 Acute kidney injury superimposed on chronic kidney disease N17.9; N18.9 Acute diastolic CHF (congestive heart failure) I50.31 Malnutrition E46 Time Spent (min) 40 Time Spent Midlevel 15 minutes with >50% of time the spent at bedside with patient discussing plan of care. Attending spent 25 min in addition to the 15 min spent by TECHNOLOGY ADMINISTRATOR for a total of 40 min with > 50% of time spent at bedside reviewing pts current condition and goals of care.
--- NOTE | 2019-11-24 18:00 | Discharge Summary ---
Date of Service November 24, 2019 Admission HPI Per Admitting Provider The patient is a 74-year-old female with a past medical history including anemia chronic disease, CHF, C. difficile colitis, hemorrhagic shock, GERD, hypertension, lupus, history of CVA, CKD stage IV and Carolis disease. She presented to the emergency department at [facility] with the above symptoms. Work-up at that emergency department included chest x-ray suggestive of right upper lobe pneumonia, for which she received vancomycin IV, cefepime IV and levofloxacin IV. EKG showed suggested ST depressions/ischemia in leads II, III and aVF and leads V4 through V6, and troponin which was initially 0.062 had a mild increase to 0.086. She was also found to be hypoxic, with pulse ox 82% on room air, and was placed on Vapotherm with improvement to 92%. She was found to be mildly anemic with a hemoglobin of 7.7-8.3 range, and was being transfused 1 unit PRBCs Chest x-ray also showed bilateral pleural effusions. Do this due to this constellation of issues, the patient was transferred to [facility] to the ICU for further diagnosis and treatment. Admission Exam Per Admitting Provider The patient is awake, alert and oriented 3, breathing comfortably on BiPAP mask, lying in bed and in no acute distress. HEENT--PERRL, EOMI, mucous membranes and oropharynx dry. Neck--supple. No JVD. No bruits. Thyroid normal, trachea midline, no adenopathy. Heart--normal S1 and S2. No murmurs, rubs or gallops. Lungs--coarse breath sounds bilaterally. Abdomen--normal bowel sounds and soft. Nontender. Nondistended. Mildly tympanitic. Extremities--no cyanosis or clubbing. Trace bilateral pretibial pitting edema. Dermatologic--normal skin turgor, normal color, no abnormal lymph nodes, no rash. Neurologic--cranial nerves II through XII grossly intact. Rheumatologic--limited exam Psychiatric--normal affect. Principal Diagnosis (1) Acute kidney injury superimposed on chronic kidney disease: (2) HTN (hypertension): (3) Anemia: (4) Acute hypoxemic respiratory failure: (5) Malnutrition: (6) Generalized weakness: (7) Physical deconditioning: (8) Bradycardia: (9) H/O TIA (10) demand ischemia Discharge Exam Gen-AAO x 3, NAD, Afebrile Head-NCAT, EOMI, PERRLA, Anicteric Sclera, No Posterior Pharyngeal Erythema Neck-Supple, No JVD, No Thyromegaly, No Masses, No LAD, No Bruits Lungs-Clear to Auscultation Bilaterally, No Rales, No Rhonchi, No Wheezing, No Crepitus Chest-No S4, +S1, +S2, No S3, No Murmurs, No Rubs, No Gallops, No Ectopy Abdomen-Soft, Bowel Sounds Present, Non Tender, Non Distended, No Hepatomegaly, No Splenomegaly, No Palpable Masses, No Rebound, No Rigidity, No Guarding Musculoskeletal-Full Range of Motion Bilaterally, No CVAT Extremities-No Cyanosis, No Clubbing, No Edema Nuero-Cranial Nerves II-XII grossly intact, Motor WNL, DTRs WNL, Strength WNL, Non Focal Psych-Normal Mood Discharge Data Allergies Allergy/AdvReac Type Severity Reaction Status Date / Time Iodinated Contrast Media Allergy Severe HIVES/DIFFICULTY Verified 10/06/19 13:33 SWALLOWING Consultations 11/04/19 23:33 Consult Case Management - Discharge Planning Routine 11/04/19 23:52 Consult Home Restoration Service Cleaner Routine 11/05/19 07:23 Consult Cardiology Routine 11/07/19 18:01 Consult Nutrition Routine 11/08/19 09:59 Consult Case Management - Discharge Planning Routine Consult Neurology Routine 11/09/19 12:08 Consult Nephrology Routine 11/15/19 15:09 Consult Gastroenterology Routine 11/21/19 09:24 Consult Vascular Surgery Routine 11/21/19 10:04 Consult Palliative Care Routine Procedures Performed Operation Date: 11/21/19 14:50 Actual Procedures p Insertion of Perm Catheter, Right Internal Jugular Approach, Ultrasound Localization of Right Internal Jugular Vein, Fluoroscopy for Positioning. (Right) - Maximino Grant MD Ordered Studies 11/08/19 09:01 CT head/brain wo con Stat 11/08/19 09:31 MR brain wo con Stat 11/08/19 09:33 MR angio head wo con Stat 11/08/19 10:48 MR angio neck wo con Stat 11/08/19 18:38 CT abd pelvis wo con Routine 11/10/19 16:21 US venous doppler LE BI Routine 11/14/19 01:29 US liver Routine 11/21/19 10:47 EV cvc insrt tunnel wo prt/sterilizer machine operator Routine 11/24/19 11/24/19 11/24/19 Range/Units 15:06 13:37 13:37 WBC (4.8-10.8) K/uL RBC (4.2-5.4) M/uL Hgb (12.0-16.0) g/dL Hct (37-47) % MCV (80-100) fL MCH (25-34) pg MCHC (32-36) g/dL RDW Std Deviation (36.4-46.3) fL RDW Coeff of Aurelia (11.5-14.5) % Plt Count (130-400) K/uL MPV (7.4-10.4) fL Haptoglobin Pending PT (9.0-12.0) Seconds INR (0.9-1.1) APTT (21.0-31.0) Seconds PTT Ratio Fibrinogen (184-400) mg/dl Fibrin Degrad Products (<10) mcg/ml D-Dimer (0-500) ug/L FEU Plt Func Collagen/Epi 97 (80-184) Seconds Factor VIII Activity Pending Sodium (136-145) mmol/L Potassium (3.5-5.1) mmol/L Chloride (98-107) mmol/L Carbon Dioxide (21-32) mmol/L Anion Gap (3-11) BUN (7-18) mg/dl Creatinine (0.6-1.2) mg/dl Est Cr Clr Drug Dosing ml/min Est GFR ( Amer) Est GFR (Non-Af Amer) BUN/Creatinine Ratio (10-20) Glucose (70-99) mg/dl Calcium (8.5-10.1) mg/dl Magnesium (1.8-2.4) mg/dl Lactate Dehydrogenase (84-246) U/L Hep B Core IgM Ab (NON-REACTIVE) Blood Type Antibody Screen Crossmatch 11/24/19 11/24/19 11/24/19 Range/Units 13:37 13:37 13:37 WBC (4.8-10.8) K/uL RBC (4.2-5.4) M/uL Hgb (12.0-16.0) g/dL Hct (37-47) % MCV (80-100) fL MCH (25-34) pg MCHC (32-36) g/dL RDW Std Deviation (36.4-46.3) fL RDW Coeff of Aurelia (11.5-14.5) % Plt Count (130-400) K/uL MPV (7.4-10.4) fL Haptoglobin PT (9.0-12.0) Seconds INR (0.9-1.1) APTT (21.0-31.0) Seconds PTT Ratio Fibrinogen 320 (184-400) mg/dl Fibrin Degrad Products 10-40 H (<10) mcg/ml D-Dimer 1840 H* (0-500) ug/L FEU Plt Func Collagen/Epi (80-184) Seconds Factor VIII Activity Sodium (136-145) mmol/L Potassium (3.5-5.1) mmol/L Chloride (98-107) mmol/L Carbon Dioxide (21-32) mmol/L Anion Gap (3-11) BUN (7-18) mg/dl Creatinine (0.6-1.2) mg/dl Est Cr Clr Drug Dosing ml/min Est GFR ( Amer) Est GFR (Non-Af Amer) BUN/Creatinine Ratio (10-20) Glucose (70-99) mg/dl Calcium (8.5-10.1) mg/dl Magnesium (1.8-2.4) mg/dl Lactate Dehydrogenase 268 H (84-246) U/L Hep B Core IgM Ab (NON-REACTIVE) Blood Type Antibody Screen Crossmatch 11/24/19 11/24/19 11/24/19 Range/Units 05:43 05:43 05:43 WBC 8.07 (4.8-10.8) K/uL RBC 3.39 L (4.2-5.4) M/uL Hgb 9.9 L (12.0-16.0) g/dL Hct 29.2 L (37-47) % MCV 86.1 (80-100) fL MCH 29.2 (25-34) pg MCHC 33.9 (32-36) g/dL RDW Std Deviation 50.9 H (36.4-46.3) fL RDW Coeff of Aurelia 16.2 H (11.5-14.5) % Plt Count 307 (130-400) K/uL MPV 10.1 (7.4-10.4) fL Haptoglobin PT 13.0 H (9.0-12.0) Seconds INR 1.2 H (0.9-1.1) APTT 28.5 (21.0-31.0) Seconds PTT Ratio 1.0 Fibrinogen (184-400) mg/dl Fibrin Degrad Products (<10) mcg/ml D-Dimer (0-500) ug/L FEU Plt Func Collagen/Epi (80-184) Seconds Factor VIII Activity Sodium 140 (136-145) mmol/L Potassium 3.5 (3.5-5.1) mmol/L Chloride 106 (98-107) mmol/L Carbon Dioxide 23 (21-32) mmol/L Anion Gap 11.0 (3-11) BUN 32 H (7-18) mg/dl Creatinine 4.24 H D (0.6-1.2) mg/dl Est Cr Clr Drug Dosing 10.1 ml/min Est GFR ( Amer) 11.1 Est GFR (Non-Af Amer) 9.5 BUN/Creatinine Ratio 7.5 L (10-20) Glucose 76 (70-99) mg/dl Calcium 7.7 L (8.5-10.1) mg/dl Magnesium 2.4 (1.8-2.4) mg/dl Lactate Dehydrogenase (84-246) U/L Hep B Core IgM Ab (NON-REACTIVE) Blood Type Antibody Screen Crossmatch 11/23/19 11/22/19 Range/Units 14:33 05:57 WBC (4.8-10.8) K/uL RBC (4.2-5.4) M/uL Hgb (12.0-16.0) g/dL Hct (37-47) % MCV (80-100) fL MCH (25-34) pg MCHC (32-36) g/dL RDW Std Deviation (36.4-46.3) fL RDW Coeff of Aurelia (11.5-14.5) % Plt Count (130-400) K/uL MPV (7.4-10.4) fL Haptoglobin PT (9.0-12.0) Seconds INR (0.9-1.1) APTT (21.0-31.0) Seconds PTT Ratio Fibrinogen (184-400) mg/dl Fibrin Degrad Products (<10) mcg/ml D-Dimer (0-500) ug/L FEU Plt Func Collagen/Epi (80-184) Seconds Factor VIII Activity Sodium (136-145) mmol/L Potassium (3.5-5.1) mmol/L Chloride (98-107) mmol/L Carbon Dioxide (21-32) mmol/L Anion Gap (3-11) BUN (7-18) mg/dl Creatinine (0.6-1.2) mg/dl Est Cr Clr Drug Dosing ml/min Est GFR ( Amer) Est GFR (Non-Af Amer) BUN/Creatinine Ratio (10-20) Glucose (70-99) mg/dl Calcium (8.5-10.1) mg/dl Magnesium (1.8-2.4) mg/dl Lactate Dehydrogenase (84-246) U/L Hep B Core IgM Ab NON-REACTIVE (NON-REACTIVE) Blood Type AB Positive Antibody Screen NEGATIVE Crossmatch See Detail Hospital Course (1) Acute kidney injury superimposed on chronic kidney disease: Likely related to ATN after recent infections +/- medications. Dialysis yesterday with improvement in symptoms and lab numbers. (2) HTN (hypertension): Uncontrolled blood pressure on hydralazine, clonidine prior to initiating dialysis. However, this is more improved. We did discuss the drowsiness as a possible side effect from clonidine and the patient would like to hold this medication while in the hospital moving forward. Continue amlodipine and monitoring blood pressure closely. (3) Anemia: Likely multifactorial including chronic disease, CKD Stage IV and frequent phlebotomy over multiple hospitalizations reported in the past couple of months. Now also has an acute component of blood loss from bleeding at the dialysis catheter site overnight (4) Acute hypoxemic respiratory failure: 2/2 Flu A and bilateral pneumonia. S/P Tamiflu and completed abx course. Hypoxia has resolved and she is doing well clinically. Recommend repeat CXR as outpatient (5) Malnutrition: from multiple hospitalizations and recent infections/comorbidities. Nutrition to help with supplements and calorie counts. Patient has had a return of her appetite after initiation of dialysis yesterday. (6) Generalized weakness: 2/2 multiple hospitalizations. rehab planned at discharge. (7) Physical deconditioning: As above. (8) Bradycardia: Discontinue Toprol-XL. Since discontinuation of this, bradycardia has resolved. No hard line indication for continuing Toprol-XL. Please discontinue this at discharge. (9) H/O TIA (transient ischemic attack) and stroke: Pt was on ASA and Plavix at home prior to arrival. Neurology saw the patient here and recommended a baby aspirin when she was awake enough to start swallowing again. These agents had been held around the hemodialysis catheter placement and the initiation of HD. No known CAD or stents in the past. The patient had a history of stroke while on baby aspirin and Plavix was added. With her current weakness and comorbidities, would continue aspirin alone and consider restarting Plavix as outpatient once the patient has improved to jose guerra clinically. This was discussed with the patient and her daughter and they agree with this. (10) DVT prophylaxis: None due to bleeding Full Code [place] [facility] [place] Patient was admitted on November 04 with hypoxic respiratory failure and acute on chronic kidney disease. She was treated for the flu, pneumonia and renal failure. She completed a course of Tamiflu as well as a course of IV doxycycline and Rocephin. Her renal function got worse during her hospital stay and she was started on dialysis on November 20. She also had a duotube and that when she pulled it caused her to bleed from the nares. She developed melena from that as well as obvious anemia. Her hemoglobin hovered around 7 and GI was consulted secondary to elevated alkaline phosphatase and GGT. GI along with me decided not to scope her because her hemoglobin was stable. But the family wanted her alk phos worked up. We did not feel it was worth the risk to scope her in her condition. As I said earlier the renal function has been getting worse. Vascular placed a dialysis catheter and she received dialysis on 11/20. Today she was bleeding pretty much all day from subcu heparin she received last night. She received 2 doses of protamine, FFP, vitamin K, and pressure dressings. Subcu heparin was stopped and previous to that aspirin and Plavix were also stopped several days ago. The family is unhappy with the care and wishes her to go to [facility] where she was denied however I did get [facility] to accept her. We are awaiting a bed. Total Time Total Time Spent Total Time Spent (In Minutes): 75 mins Total Time Includes: Examination of the Patient, Discharge Planning, Medication Reconciliation and Communication With Other Providers Discharge Plan Discharge Items Patient Disposition: Transfer Acute Care Hospital Reason For Visit: ACUTE RESP FAILURE W/ HYPOX,NSTEMI,PNEUMONIA,ANEMI Discharge Diagnosis: (1) Acute kidney injury superimposed on chronic kidney disease: (2) HTN (hypertension): (3) Anemia: (4) Acute hypoxemic respiratory failure: (5) Malnutrition: (6) Generalized weakness: (7) Physical deconditioning: (8) Bradycardia: (9) H/O TIA (10) demand ischemia (11) Bleeding from SC Heparin Sites Condition on Discharge: Fair Health Concerns: Bleeding from SC Heparin Sites, Renal Function Goals: Improve Kidney function Activity: As commented below Activity Comment: ad lencho Lifting: None Bathing: No limitations Exercise/Sports: None Weightbearing: Full weightbearing Non-emergency contact: Primary Care Provider and Van Cdl Driver Call non-emergency contact if: you have any medication questions Follow-up/Referrals: Tai Beasley [Primary Care Provider] - Dietitian Info: slippery diet, healthy heart, Renal Diet: Other - See Diet Comment Fluids: 1500ml (6 cups) Diet Texture: Easy to Chew Addtl Attending Provider Instructions: Dialysis, No SC heparin, no ASA, No Plavix until better Addtl Stonemason Apprentice Provider Instructions: Dialysis and GI eval Pending Studies at Discharge: No Stand-Alone Forms: [facility] Skilled Items Patient informed of condition?: Yes DNR: No Discharge Level of Care: Other Communicable Disease: Yes Discharge Prognosis: Improving Lines: Peripheral IV Urinary Catheter: No Medications and DC Order Prescriptions: New ipratropium-albuterol 0.5 mg-3 mg(2.5 mg base)/3 mL Solution For Nebulization 3 ml NEB Q4R PRN (Reason: shortness of breath) Qty: 15 RF: 0 hydralazine 50 mg Tablet 50 mg PO Q8 Qty: 10 RF: 0 Desenex 2 % Powder 1 applic EXT PRN PRN (Reason: skin irritation) Qty: 5 RF: 0 famotidine 20 mg Tablet 20 mg PO DAILY Qty: 20 RF: 0 Continued amlodipine 10 mg Tablet 10 mg PO DAILY RF: 0 sertraline 50 mg Tablet 50 mg PO DAILY RF: 0 cyanocobalamin (vitamin B-12) 1,000 mcg Tablet 1,000 mcg PO QAM RF: 0 Lactobacillus acidoph-L.bulgar 1 million cell Tablet 1 tab PO TIDM 10 Days Qty: 30 RF: 0 ondansetron HCl 4 mg tablet 4 mg PO Q8 PRN (Reason: Nausea) RF: 0 ranitidine HCl 150 mg tablet 150 mg PO BID RF: 0 metoprolol tartrate 25 mg Tablet 25 mg PO BID 30 Days Qty: 60 RF: 0 clonidine HCl 0.1 mg Tablet 0.1 mg PO BID 30 Days Qty: 60 RF: 0 Discontinued hydralazine 25 mg Tablet 25 mg PO TID RF: 0 vancomycin PO Q6 RF: 0 clopidogrel 75 mg Tablet 75 mg PO QAM RF: 0 aspirin 81 mg Tablet,Delayed Release (Dr/Ec) 81 mg PO HS RF: 0 Discharge Orders: Discharge Order (Routine); Ordered 11/24/19 Ordered By: Moises Lora Admission Data Admit Date/Time: 11/04/19 23:20 Attending Provider: Moises Lora Admit Provider: Sree Brian Primary Care Provider: Tai Beasley Other Providers: Audie Zarco ; Jude Nance ; Kay Brown ; Gypsy Vogle ; Jhoana Crawford ; Natanael Beltran ; Stephany Polanco ; Clara Barbosa Japheth E. ; Tasha Brown ; Maximino Grant ; Marsha Larsen
[2019-11-25 05:38] LABS: Hematocrit (blood only) 23.6 % (37-47); Hemoglobin 7.8 g/dL (12.0-16.0); Mean Corpuscular Hemoglobin 29.1 pg (25-34); Mean Corpuscular Hgb Conc 33.1 g/dL (32-36); Mean Corpuscular Volume 88.1 fL (80-100); Mean Platelet Volume 9.9 fL (7.4-10.4); Platelet Count 263 K/uL (130-400); RDW Coefficient of Variation 16.5 % (11.5-14.5); RDW Standard Deviation 53.2 fL (36.4-46.3); Red Blood Count 2.68 M/uL (4.2-5.4); White Blood Count 8.23 K/uL (4.8-10.8)
[2019-11-25] MEDS: HydrALAZINE TAB 50 MG TAB PO SCH ×2 (05:44→13:37)
[2019-11-25 06:26] LABS: Albumin Globulin Ratio 0.5 (0.9-2); Albumin Level 1.8 gm/dl (3.4-5.0); Bilirubin,Total 0.6 mg/dl (0.2-1); Calcium 8.1 mg/dl (8.5-10.1); Creatinine Clr Calc Pharmacy 8.4 ml/min; Est GFR (African American) 8.8; Est GFR (Non-African American) 7.6; Potassium 3.6 mmol/L (3.5-5.1); Total Protein 5.8 gm/dl (6.4-8.2)
--- NOTE | 2019-11-25 06:40 | Hospitalist Progress Note ---
Date of Service November 25, 2019 Assessment & Plan (1) Acute kidney injury superimposed on chronic kidney disease: ATN after recent infections +/- medications. Dialysis not done yesterday 3/9 sec to bleeding. Hb 7.8 today, no bleeding overnight per patient. (2) HTN (hypertension): Uncontrolled blood pressure on hydralazine, clonidine prior to initiating dialysis. (3) Anemia: Likely multifactorial including chronic disease, CKD Stage IV and frequent phlebotomy over multiple hospitalizations reported in the past couple of months. Had an acute component of blood loss from bleeding at the dialysis catheter site 2 nights ago and was bleeding at SC Heparin shot site, need FFP, Vit K, Protamine x 2 25 mg IV doses, and Dressing soaked c Afrin to stop bleeding, Hb 7.8 this am (4) Acute hypoxemic respiratory failure: 2/2 Flu A and bilateral pneumonia. S/P Tamiflu and completed abx course. Hypoxia has resolved and she is doing well clinically. Recommend repeat CXR as outpatient to make sure PNA resolved (5) Malnutrition: From multiple hospitalizations and recent infections/comorbidities. Nutrition to help with supplements and calorie counts. Patient has had a return of her appetite after initiation of dialysis yesterday. (6) Generalized weakness: 2/2 multiple hospitalizations. rehab planned at discharge. (7) Physical deconditioning: As above. (8) Bradycardia: Discontinue Toprol-XL. Since discontinuation of this, bradycardia has resolved. No hard line indication for continuing Toprol-XL. Please discontinue this at discharge. (9) H/O TIA (transient ischemic attack) and stroke: Pt was on ASA and Plavix at home prior to arrival. Neurology saw the patient here and recommended a baby aspirin when she was awake enough to start swallowing again. These agents had been held around the hemodialysis catheter placement and the initiation of HD. No known CAD or stents in the past. The patient had a history of stroke while on baby aspirin and Plavix was added. With her current weakness and comorbidities, would continue aspirin alone and consider restarting Plavix as outpatient once the patient has improved to baseline clinically. This was discussed with the patient and her daughter and they agree with this. (10) DVT prophylaxis: None due to bleeding Full [place] [facility] [place] Patient was admitted on November 04 with hypoxic respiratory failure and acute on chronic kidney disease. She was treated for the flu, pneumonia and renal failure. She completed a course of Tamiflu as well as a course of IV doxycycline and Rocephin. Her renal function got worse during her hospital stay and she was started on dialysis on November 20. She also had a duotube and that when she pulled it caused her to bleed from the nares. She developed melena from that as well as obvious anemia. Her hemoglobin hovered around 7 and GI was consulted secondary to elevated alkaline phosphatase and GGT. GI along with me decided not to scope her because her hemoglobin was stable. But the family wanted her alk phos worked up. We did not feel it was worth the risk to scope her in her condition. As I said earlier the renal function has been getting worse. Vascular placed a dialysis catheter and she received dialysis on 11/20. Today she was bleeding pretty much all day from subcu heparin she received last night. She received 2 doses of protamine, FFP, vitamin K, and pressure dressings. Subcu heparin was stopped and previous to that aspirin and Plavix were also stopped several days ago. The family is unhappy with the care and wishes her to go to [facility] where she was denied however I did get [facility] to accept her. We are awaiting a bed. ROS-No Headache, No Visual Changes, No Nausea, No Vomiting, No Fever, No Chills, No Neck Pain or Stiffness, No Chest Pain, No Palpitations, No SOB, No ALDRIDGE, No Cough, No Sputum, No Wheezing, No Abdominal Pain, No Diarrhea, No Hematemesis, No Hemoptysis, No Unexpected Weight Loss, No Flank pain, No Melena, No Hematochezia, No Frequency, No Urgency, No Burning, No Hematuria, No Rashes, No Diaphoresis. Appetite is Normal Physical Exam Gen-AAO x 3, NAD, Afebrile Head-NCAT, EOMI, PERRLA, Anicteric Sclera, No Posterior Pharyngeal Erythema Neck-Supple, No JVD, No Thyromegaly, No Masses, No LAD, No Bruits Lungs-Clear to Auscultation Bilaterally, No Rales, No Rhonchi, No Wheezing, No Crepitus Chest-No S4, +S1, +S2, No S3, No Murmurs, No Rubs, No Gallops, No Ectopy Abdomen-Soft, Bowel Sounds Present, Non Tender, Non Distended, No Hepatomegaly, No Splenomegaly, No Palpable Masses, No Rebound, No Rigidity, No Guarding Musculoskeletal-Full Range of Motion Bilaterally, No CVAT Extremities-No Cyanosis, No Clubbing, + Edema Nuero-Cranial Nerves II-XII grossly intact, Motor WNL, DTRs WNL, Strength WNL, Non Focal Psych-Depressed Mood Admission and Anticipated Discharge Date Admission Date: November 04, 2019 Anticipated date of discharge: 11/25/19 Results & Data ([facility]) Vital Signs (Past 12 Hours) Vital Signs Temp Pulse Pulse Pulse Resp BP BP 11/24/19 22:58 36.9 C 88 18 11/24/19 20:28 36.8 C 83 19 177/52 H 11/24/19 20:27 36.8 C 83 19 177/52 H 11/24/19 19:44 37.2 C 88 18 162/62 H 11/24/19 19:08 37.4 C 97 H 18 167/65 H 11/24/19 18:43 37.0 C 79 79 18 158/52 H 11/24/19 18:38 36.7 C 91 H 18 174/64 H BP Pulse Ox 11/24/19 22:58 169/50 H 97 11/24/19 20:28 94 11/24/19 20:27 94 11/24/19 19:44 96 11/24/19 19:08 95 11/24/19 18:43 148/66 H 98 11/24/19 18:38 97
[2019-11-25] MEDS ORDERED: SODIUM CHLORIDE 0.9% 1000ML 1,000 ML IV PRN (07:30)
[2019-11-25] MEDS: ASPIRIN 81 MG ECTAB PO SCH (08:40)
[2019-11-25] MEDS: LACTOBACILLUS ACIDOPHILUS (FLORANEX) TAB PO SCH ×2 (08:40→11:24)
[2019-11-25] MEDS: SERTRALINE HCL 50 MG TABLET PO SCH (08:40)
[2019-11-25] MEDS: FAMOTIDINE 20 MG TAB PO SCH (08:40)
[2019-11-25] MEDS: CYANOCOBALAMIN 500 MCG TABLET (VITAMIN B-12) PO SCH (08:40)
[2019-11-25] MEDS: AMLODIPINE BESYLATE 5 MG TAB PO SCH (08:40)
[2019-11-25] MEDS: PROMETHAZINE HCL 12.5 MG in SODIUM CHLORIDE 0.9% 50 ML IV PRN (08:58)
--- NOTE | 2019-11-25 09:30 | Nephrology Progress Note ---
Date of Service November 25, 2019 Assessment & Plan (1) Acute kidney injury superimposed on CKD: Patient with acute kidney injury on CKD. Baseline creatinine of 1.8-2. Her creatinine is today 4.9 from 4.4 yesterday, slowly worsening past couple of days. Urine output is about 500 mL in 24 hours, stable for 3 days. Etiology likely likely ischemic ATN in setting of poor p.o. intake, recent e ncephalopathy, pneumonia, influenza. Patient also with high Vanco levels recently could have nephrotoxic ATN. I discussed with the patient that given worsening acidosis, oliguria and rising creatinine, we need to initiate dialysis. Patient is agreeable. She had a tunneled dialysis catheter placed on 11/21/2019. -She had 2.5 hours of dialysis 11/21 with target UF of 1 L. We will hold off dialysis today due to pending transfer to [facility]. Next dialysis will be tomorrow. -Avoid nephrotoxins such as contrast -If discharged, she will be going to [facility] dialysis in [place] and Dr. Nagel. Case management follow-up. (2) Hypertension: Blood pressure is above target but given intermittent confusion, recent encephalopathy and question of CVA, would avoid lowering the blood pressure too much. Goal systolic of 150-160. -continue po current regimen -continue prn hydralazine (3) Hypokalemia: Patient had ongoing hypokalemia and had required frequent K riders and other aggressive K resuscitation. She will be dialyzed on a 3K bath. (4) Acute blood loss anemia: Patient with acute blood loss anemia and possible anemia of renal disease. Unable to give Epogen due to recent history of cancer. Monitor and transfuse as needed. Agree with Vit k. Will avoid heparin with HD. Patient will be transferred to [facility] for further work-up of blood loss Admission and Anticipated Discharge Date Admission Date: November 04, 2019 Anticipated date of discharge: 11/25/19 Subjective Patient with acute kidney injury now dialysis dependent. Her first dialysis was on 11/22/2019. She was supposed to have dialysis yesterday but it was canceled due to bleeding from a heparin injection site. Today patient is being planned for transfer to [facility]. She denies any shortness of breath. She is concerned about continued blood loss. Review of Systems Review of Systems: All systems reviewed & are unremarkable except as noted in HPI & below Physical Exam Physical Exam: General exam: Appears comfortable, no acute distress HEENT: Pupils are equal and reactive to light Neck: No JVD, neck is supple trachea is midline Respiratory system: Clear breath sounds bilaterally. Gastrointestinal: Abdomen is soft, non distended, non tender, bowel sounds are present CVS: Regular rate and rhythm. No murmurs, rubs or gallops Musculoskeletal: No joint or muscle tenderness Extremities: Non tender, 1+ upper extremity edema, peripheral pulses are present Neuro: Oriented, no tremors, no focal neurological deficits Skin: No rashes Access: Right IJ catheter Results & Data ([facility]) Vital Signs (Past 12 Hours) Vital Signs Temp Pulse Pulse Resp BP Pulse Ox 11/25/19 07:42 36.6 C 91 H 16 181/61 H 95 11/24/19 22:58 36.9 C 88 18 169/50 H 97 Laboratory Results 11/25/19 05:19 11/25/19 11/25/19 05:19 05:19 WBC 8.23 RBC 2.68 L MCV 88.1 MCH 29.1 MCHC 33.1 RDW Std Deviation 53.2 H RDW Coeff of Aurelia 16.5 H Plt Count 263 MPV 9.9 Albumin 1.8 L (1) Hypertension Hypertension type: essential hypertension Qualified Code(s): I10 - Essential (primary) hypertension
--- NOTE | 2019-11-26 13:20 | Coding Query ---
PRESENT ON ADMISSION QUERY To promote full compliance with coding requirements relating to pateint care, physician participation is requested in all cases of experimental display builder uncertainty. Please assist us with the question(s) below: Please place an X within the parenthesis (x). The following diagnosis(es) listed in this patient's medical record require physician assistance to determine if they were present on admission (POA) or not. Please advise for each diagnosis whether it was present on admission, not present on admission, or if it was clinically undetermined. 1. Influenza A (documentation begins 11/10/19) (x ) Present On Admission ( ) Not Present On Admission ( ) Clinically Undetermined Thank you Cheyanne Ureña *Definition of the present on admission (POA)-Present on admission is defined as present at the time the order for inpatient admission occurs. Conditions that develop during an outpatient encounter prior to a written order for inpatient admission (including emergency department, observation, or outpatient surgery) are considered present on admission. MTDD
--- NOTE | 2019-11-26 13:26 | Coding Query ---
To promote full compliance with coding requirements relating to patient care, provider participation is requested in all cases of dining room helper uncertainty. Please assist us with the question(s) below: Coding Question(s): The diagnosis(es) below was documented in the H&P through Progress Note on 11/20/19, then subsequently fell off all further documentation. Please indicate if it is still a possible diagnosis or ruled out. Physician's Response(s): ACUTE ON CHRONIC DIASTOLIC CHF (regarding the Acute Diastolic CHF/Exacerbation) (X ) Diagnosed and POA ( ) Diagnosed and not POA ( ) Ruled out ( ) Other (please specify) MTDD
--- NOTE | 2019-11-26 13:29 | Coding Query ---
CODING QUERY To promote full compliance with coding requirements relating to patient care, provider participation is requested in all cases of remote medical coder uncertainty. Please assist us with the question(s) below: Coding Question(s): The record documents NSTEMI initially then Type 2 VT is documented and the Discharge Summary documents Demand Ischemia. Please specify below, in your clinical opinion. ( ) Demand Ischemia with No VT ( ) Type 2 VT (VT due to Demand Ischemia) ( X ) NSTEMI ( ) Other: Please Specify Physician's Response(s): Thank you Cheyanne Ureña Principal Diagnosis: "that condition established after study, to be chiefly responsible for occasioning the admission of the patient to the hospital for care." Co-Existing Principal Diagnosis: "when two or more diagnoses equally meet the criteria for principal diagnosis as determined by the circumstances of admission, diagnostic work up, and/or therapy provided, and the Alphabetic Index, Tabular List, or another coding guideline does not provide sequencing direction, any one of the diagnoses may be sequenced first." "When the physician has documented what appears to be a current diagnosis in the body of the record, but has not included the diagnosis in the final diagnostic statement, the physician should be asked whether the diagnosis should be added." (Source [facility]oding [facility] 2 QTR90. p3-4) SINGH
== END 2019-11-25 14:23 | disposition short-term general hospital (02) | DRG 673 ==
LOC: 1E 23:20 → SUATTDRO 23:20 → 2S 11-05 13:29 → 2N 11-17 22:40